=== PATIENT | male | born 1960 | race Caucasian/White ===

== ENCOUNTER 2017-12-21 13:42 | Emergency (ER) | payer MEDICAID, SELFPAY ==
[2017-12-21 13:46] VITALS: RESP 23; O2SAT 96
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
--- NOTE | 2017-12-21 14:15 | NUR.NOTE ---
Nursing Note: standing in his room, sitting at bottom of bed, requesting his walker so that he can go home. calling nurses mother royce, I want to go home. threw phone on the floor after talking to Dr Cummings. keeps saying he wants to go home, nothing is wrong with him. will not let us take vital signs, pulls equipment off.
== END 2017-12-21 14:44 | disposition home or self-care (01) ==
PROVIDERS: Emergency Provider Physician Assistant; PCP Family Medicine
DX: F10.229 Alcohol dependence with intoxication, unspecified (principal); E11.40 Type 2 diabetes mellitus with diabetic neuropathy, unspecified; Z79.4 Long term (current) use of insulin; I10 Essential (primary) hypertension
CPT/HCPCS: 99285; 99284

== ENCOUNTER 2017-12-30 13:58 | Outpatient (CLI) | payer MEDICAID, SELFPAY ==
[2017-12-30 14:48] LABS: ALT 30 U/L (12-78); AST 34 U/L (15-37); Albumin 3.7 g/dL (3.4-5.0); Alkaline Phosphatase 114 U/L (46-116); Anion Gap 8.5 mmol/L (3-11); BUN 8 mg/dL (7-18); Bilirubin, Direct 0.22 mg/dL (0.00-0.20); Bilirubin, Total 0.6 mg/dL (0.2-1.0); CO2 30.5 mmol/L (21.0-32.0); CREATININE 0.86 mg/dL (0.70-1.30); Calcium 8.9 mg/dL (8.5-10.1); Chloride 100 mmol/L (98-107); Glucose 66 mg/dL (70-100); Magnesium 1.6 mg/dL (1.8-2.4); Potassium 3.9 mmol/L (3.5-5.1); Sodium 139 mmol/L (136-145); Total Protein 7.5 g/dL (6.4-8.2)
[2017-12-30 14:50] LABS: Absolute Basophil Count 0.02 k/cumm (0.0-0.2); Absolute Eosinophil Count 0.11 k/cumm (0.0-0.7); Absolute Lymphocyte Count 1.66 k/cumm (1.2-3.4); Absolute Monocyte Count 0.56 k/cumm (0.11-0.7); Absolute Neutrophil Count 3.98 k/cumm (1.2-6.7); Basophils % 0.3; Eosinophils % 1.7; HCT 36.5 % (40.0-50.0); HGB 11.5 g/dL (13.5-17.5); Lymphocytes % 26.2; Mean Corp. HGB Concentration 31.5 g/dL (32.0-36.0); Mean Corpuscular Hemoglobin 25.8 pg (27.0-33.0); Mean Platelet Volume 11.9 fL (8.0-11.0); Monocytes % 8.8; RBC 4.45 m/cumm (4.50-6.00); RBC Distribution Width 17.4 % (11.8-14.1); White Blood Cell Count 6.33 k/cumm (4.4-10.8)
[2017-12-30 14:53] LABS: INR 1.1 (1.0-3.5); Prothrombin Time 10.8 sec (9.3-10.8)
[2017-12-30 14:59] LABS: ETHANOL BLOOD < 3.0 mg/dL (<3)
[2017-12-30 15:35] LABS: Diff Comment PLT Morph Reviewed; Hypochromasia 2+; Platelet Count 88 x1000/uL (130-400)
== END 2017-12-30 14:18 ==
PROVIDERS: PCP Family Medicine; Visit Provider Family Medicine
DX: K74.60 Unspecified cirrhosis of liver (principal); F10.20 Alcohol dependence, uncomplicated; S12.690S Other displaced fracture of seventh cervical vertebra, sequela
CPT/HCPCS: 36415; 80048; 80076; 80320; 83735; 85025; 85610

== ENCOUNTER 2018-01-19 10:37 | Emergency (ER) | payer MEDICAID, SELFPAY ==
[2018-01-19 10:46] VITALS: BP 149/88; PULSE 113; RESP 26; TEMP 37.7; O2SAT 95
--- NOTE | 2018-01-19 11:23 | W.ED.GENAD ---
Discharge Plan Discharge Details Chief Complaint: Nk/Back Pain Primary Care Provider: Sushil Figueroa ED Provider: Jailyn Pedro Home Meds and New Rx's Prescriptions: No Action oxazepam 10 MG capsule 10 mg PO BID RF: 0 aspirin [Aspir-81] 81 MG tablet,delayed release (DR/EC) 81 mg PO DAILY RF: 0 furosemide 20 MG tablet 20 mg PO BID RF: 0 spironolactone 50 MG tablet 50 mg PO BID RF: 0 epinephrine 0.3 MG/SYR auto-injector 0.3 mg IM DIRECTED PRNRF: 0 pantoprazole 40 MG tablet,delayed release (DR/EC) 40 mg PO DAILY RF: 0 mirtazapine 15 MG tablet 15 mg PO HS RF: 0 losartan 50 MG tablet 50 mg PO DAILY RF: 0 atorvastatin [Lipitor] 40 MG tablet 40 mg PO QPM RF: 0 lactulose [Constulose] 10 GM/15 ML solution 45 gm PO TID RF: 0 insulin detemir U-100 [Levemir U-100 Insulin] 100 UNIT/ML solution 22 unit SQ DAILY RF: 0 duloxetine [Cymbalta] 30 MG capsule,delayed release(DR/EC) 60 mg PO DAILY RF: 0 magnesium oxide 400 MG tablet 400 mg PO BID RF: 0 gabapentin 800 MG tablet 800 mg PO TID RF: 0 multivitamin 1 EACH capsule 1 ea PO DAILY RF: 0 insulin lispro [Humalog KwikPen Insulin] 100 UNIT/ML insulin pen 8 unit SQ AC RF: 0 thiamine mononitrate (vit B1) [Vitamin B-1 (mononitrate)] 100 MG tablet 100 mg PO DAILY RF: 0 HPI General Mode of arrival: ambulatory. Date/Time Provider Initiated Documentation: 01/19/18 10:52. Limitations to Documentation: no limitations. Information obtained by: patient. HPI Narrative: Patient is a 57-year-old male with a history of alcohol abuse, opiate abuse who presents with bilateral arm and leg pain and tingling since yesterday. States he had neck surgery at [facility] month ago Related Data Home Medications Medication Instructions Recorded Confirmed epinephrine 0.3 mg IM DIRECTED PRN 01/15/13 09/23/17 mirtazapine 15 mg PO HS 11/21/15 09/23/17 pantoprazole 40 mg PO DAILY 11/21/15 09/23/17 duloxetine [Cymbalta] 60 mg PO DAILY 04/06/16 09/23/17 losartan 50 mg PO DAILY 04/18/16 09/23/17 atorvastatin [Lipitor] 40 mg PO QPM 08/19/16 09/23/17 insulin detemir U-100 [Levemir 22 unit SQ DAILY 08/19/16 09/23/17 U-100 Insulin] lactulose [Constulose] 45 gm PO TID 08/19/16 09/23/17 gabapentin 800 mg PO TID 11/19/16 09/23/17 insulin lispro [Humalog KwikPen 8 unit SQ AC 11/19/16 09/23/17 Insulin] magnesium oxide 400 mg PO BID 11/19/16 09/23/17 multivitamin 1 ea PO DAILY 11/19/16 09/23/17 thiamine mononitrate (vit B1) 100 mg PO DAILY 11/19/16 09/23/17 [Vitamin B-1 (mononitrate)] aspirin [Aspir-81] 81 mg PO DAILY tab-cap 03/15/17 09/23/17 furosemide 20 mg PO BID tab-cap 03/15/17 09/23/17 oxazepam 10 mg PO BID 03/15/17 09/23/17 spironolactone 50 mg PO BID tab-cap 03/15/17 09/23/17 Allergies Allergy/AdvReac Type Severity Reaction Status Date / Time venom-honey bee Allergy Severe signs of Unverified 12/21/17 13:53 stroke pregabalin [From Lyrica] Allergy Mild Unverified 12/21/17 13:53 varenicline tartrate AdvReac Unknown Nausea Unverified 12/21/17 13:53 [From Chantix] General Stated Complaint: Nk/Back Pain SCOT: 3 PFSH Medical History Alcohol dependence Arthritis Bilateral leg edema Chronic pain Cirrhosis of liver Depression Diabetes mellitus, type II Diabetic peripheral neuropathy Encephalopathy, hepatic GERD (gastroesophageal reflux disease) Hepatitis C Hyperlipidemia Hypertension Knee pain, right Opioid abuse TIA (transient ischemic attack) Ulnar neuropathy Social History Smoking/Tobacco Use Status: Current every day Course Vital Signs Temperature 99.9 F H 01/19/18 10:46 Pulse 113 H 01/19/18 10:46 Respiratory Rate 26 H 01/19/18 10:46 Blood Pressure 149/88 H 01/19/18 10:46 Pulse Oximetry 95 01/19/18 10:46 Temperature 99.9 F H 01/19/18 10:46 Temperature Source Tympanic 01/19/18 10:46 Pulse 113 H 01/19/18 10:46 Respiratory Rate 26 H 01/19/18 10:46 Respiratory Effort 01/19/18 10:50 Blood Pressure 149/88 H 01/19/18 10:46 Blood Pressure Position Supine 01/19/18 10:46 Pulse Oximetry 95 01/19/18 10:46 Oxygen Delivery Method Room Air 01/19/18 10:46 Oxygen Flow Rate 0 01/19/18 10:46 Pain Level 10 01/19/18 10:46
[2018-01-19 11:40] LABS: Bilirubin Negative (Negative); Blood Negative (Negative); Clarity Clear; Glucose Negative (Negative); Ketones Negative (Negative); Leukocyte Esterase Negative (Negative); Nitrite Negative (Negative); Specific Gravity 1.015 (1.005-1.025); Urobilinogen 0.2 EU/dL (Up TO 0.2)
[2018-01-19 11:41] LABS: Abs Immature Grans 0.01 k/cumm (0.0-0.09); Absolute Basophil Count 0.02 k/cumm (0.0-0.2); Absolute Eosinophil Count 0.02 k/cumm (0.0-0.7); Absolute Lymphocyte Count 2.28 k/cumm (1.2-3.4); Absolute Monocyte Count 0.61 k/cumm (0.11-0.7); Absolute Neutrophil Count 7.38 k/cumm (1.2-6.7); Basophils % 0.2; Eosinophils % 0.2; HCT 33.8 % (40.0-50.0); HGB 10.8 g/dL (13.5-17.5); Immature Grans % 0.1; Lymphocytes % 22.1; Mean Corpuscular Hemoglobin 25.3 pg (27.0-33.0); Mean Corpuscular Volume 79.2 fL (80-95); Mean Platelet Volume 11.7 fL (8.0-11.0); Monocytes % 5.9; Neutrophils % 71.5; RBC 4.27 m/cumm (4.50-6.00); RBC Distribution Width 17.1 % (11.8-14.1); White Blood Cell Count 10.32 k/cumm (4.4-10.8)
[2018-01-19 11:49] LABS: Anion Gap 12.5 mmol/L (3-11); BUN 10 mg/dL (7-18); CO2 25.5 mmol/L (21.0-32.0); CREATININE 0.58 mg/dL (0.70-1.30); Calcium 9.7 mg/dL (8.5-10.1); Chloride 98 mmol/L (98-107); Glucose 104 mg/dL (70-100); Platelet Count 254 x1000/uL (130-400); Potassium 4.1 mmol/L (3.5-5.1); Sodium 136 mmol/L (136-145)
[2018-01-19 11:51] LABS: ETHANOL BLOOD 60.1 mg/dL (<3)
--- NOTE | 2018-01-19 12:17 | ED.GENADUL_ITS ---
Discharge Plan Discharge Details Chief Complaint: Nk/Back Pain Primary Care Provider: Sushil Figueroa ED Provider: Jailyn Pedro Home Meds and New Rx's Prescriptions: No Action oxazepam 10 MG capsule 10 mg PO BID RF: 0 aspirin [Aspir-81] 81 MG tablet,delayed release (DR/EC) 81 mg PO DAILY RF: 0 furosemide 20 MG tablet 20 mg PO BID RF: 0 spironolactone 50 MG tablet 50 mg PO BID RF: 0 epinephrine 0.3 MG/SYR auto-injector 0.3 mg IM DIRECTED PRNRF: 0 pantoprazole 40 MG tablet,delayed release (DR/EC) 40 mg PO DAILY RF: 0 mirtazapine 15 MG tablet 15 mg PO HS RF: 0 losartan 50 MG tablet 50 mg PO DAILY RF: 0 atorvastatin [Lipitor] 40 MG tablet 40 mg PO QPM RF: 0 lactulose [Constulose] 10 GM/15 ML solution 45 gm PO TID RF: 0 insulin detemir U-100 [Levemir U-100 Insulin] 100 UNIT/ML solution 22 unit SQ DAILY RF: 0 duloxetine [Cymbalta] 30 MG capsule,delayed release(DR/EC) 60 mg PO DAILY RF: 0 magnesium oxide 400 MG tablet 400 mg PO BID RF: 0 gabapentin 800 MG tablet 800 mg PO TID RF: 0 multivitamin 1 EACH capsule 1 ea PO DAILY RF: 0 insulin lispro [Humalog KwikPen Insulin] 100 UNIT/ML insulin pen 8 unit SQ AC RF: 0 thiamine mononitrate (vit B1) [Vitamin B-1 (mononitrate)] 100 MG tablet 100 mg PO DAILY RF: 0 Discharge Data Discharge Date/Time-TO BE ENTERED AT DEPARTURE: 01/19/18 12:00 Medical Decision Making 57-year-old male who is 19 days status post cervical fusion at and with a history of alcohol and narcotic abuse, diabetes, hypertension who presents for bilateral arm and leg pain and paresthesias since yesterday. Patient states he is mainly complaining of pain and from immediate arrival to ED, is requesting narcotic pain medication. Patient left the room multiple times walking with his walker asking where is the doctor? she can't be taking care of any critical patients I need pain medicine. States he was given tramadol after his surgery but ran out. BP hypertensive, heart rate tachycardic on arrival. Upon my examination, heart rate improved, low 100s. Normal lung sounds. Abdomen soft and nontender. Patient is verbally aggressive at times and irritable with staff but appears nontoxic. An EKG was done which revealed a rate of 113, sinus tachycardia, no acute ST elevation or depression, QTc 455, QRS 88. No focal deficits on my exam. He has good strength, no motor or sensory deficits, normal reflexes. He has been noted to ambulate around the room easily with his walker. [facility] records note that patient had a C3-T2 posterior cervical fusion on . He had been discharged but left prior to voiding which was AGAINST MEDICAL ADVICE. Patient admitted to drinking 3 alcoholic drinks last night to help with the pain. I discussed with patient considering his history of alcohol and narcotic abuse, I am hesitant to give narcotic pain medications if I do not find an acute cause. I will check screening labs and urinalysis as well as an alcohol level. I discussed that if he had any alcohol in the system, I will be holding on any narcotic pain medication. I also offered patient a dose of tramadol if his alcohol is negative but he refuses this. I offered to call [facility] to discuss patient's symptoms but he is also refusing and states he wants to leave. Patient left before lab work complete and left before given discharge instructions. Patient was instructed to call orthopedics at [facility] to see if he can be seen before his 3-week appointment. He was instructed to return here with any concerns. As patient was leaving, his CBC and BMP returned and were unremarkable. After patient left, his urinalysis is negative and alcohol is 60. HPI General Mode of arrival: ambulatory . Date/Time Provider Initiated Documentation: 01/19/18 10:52 . Limitations to Documentation: no limitations . Information obtained by: patient . HPI Narrative: Patient is a 57-year-old male with a history of alcohol abuse, opioid abuse, pancreatitis, diabetes who presents for bilateral arm and leg pain and tingling since yesterday. States he had neck surgery at [facility] 1 month ago. States he has not discussed his symptoms with them. States he was given tramadol after his surgery but has since finished it. States his next appointment is 3 weeks from now. Patient states his pain extends from both elbows down to his hands and both knees down to his feet. Patient states he uses a walker for ambulation which is chronic. Patient arrived here by RCT. Patient denies fever, chills, chest pain, shortness of breath, abdominal pain, saddle anesthesia, leg weakness, urinary or fecal incontinence. Past medical history: Hypertension, TIA, GERD, hyperlipidemia, depression, diabetes, alcohol abuse, pancreatitis Surgical history: Knee surgery, neck surgery Social history: Smokes tobacco, alcohol use, history of heroin and cocaine use Medications: See list Allergies: Jacoby Little PCP: Dr. Figueroa Related Data Home Medications Medication Instructions Recorded Confirmed epinephrine 0.3 mg IM DIRECTED PRN 01/15/13 09/23/17 mirtazapine 15 mg PO HS 11/21/15 09/23/17 pantoprazole 40 mg PO DAILY 11/21/15 09/23/17 duloxetine [Cymbalta] 60 mg PO DAILY 04/06/16 09/23/17 losartan 50 mg PO DAILY 04/18/16 09/23/17 atorvastatin [Lipitor] 40 mg PO QPM 08/19/16 09/23/17 insulin detemir U-100 [Levemir 22 unit SQ DAILY 08/19/16 09/23/17 U-100 Insulin] lactulose [Constulose] 45 gm PO TID 08/19/16 09/23/17 gabapentin 800 mg PO TID 11/19/16 09/23/17 insulin lispro [Humalog KwikPen 8 unit SQ AC 11/19/16 09/23/17 Insulin] magnesium oxide 400 mg PO BID 11/19/16 09/23/17 multivitamin 1 ea PO DAILY 11/19/16 09/23/17 thiamine mononitrate (vit B1) 100 mg PO DAILY 11/19/16 09/23/17 [Vitamin B-1 (mononitrate)] aspirin [Aspir-81] 81 mg PO DAILY tab-cap 03/15/17 09/23/17 furosemide 20 mg PO BID tab-cap 03/15/17 09/23/17 oxazepam 10 mg PO BID 03/15/17 09/23/17 spironolactone 50 mg PO BID tab-cap 03/15/17 09/23/17 Allergies Allergy/AdvReac Type Severity Reaction Status Date / Time venom-honey bee Allergy Severe signs of Unverified 12/21/17 13:53 stroke pregabalin [From Lyrica] Allergy Mild Unverified 12/21/17 13:53 varenicline tartrate AdvReac Unknown Nausea Unverified 12/21/17 13:53 [From Chantix] General Stated Complaint: Nk/Back Pain SCOT: 3 Review of Systems Review of Systems All systems reviewed & are unremarkable except as noted in HPI and below PFSH Medical History Alcohol dependence Arthritis Bilateral leg edema Chronic pain Cirrhosis of liver Depression Diabetes mellitus, type II Diabetic peripheral neuropathy Encephalopathy, hepatic GERD (gastroesophageal reflux disease) Hepatitis C Hyperlipidemia Hypertension Knee pain, right Opioid abuse TIA (transient ischemic attack) Ulnar neuropathy Social History Smoking/Tobacco Use Status: Current every day Exam Const General: cooperative and healthy appearing Orientation: alert and awake HENMT Head: normal to inspection Ears: hearing grossly normal bilaterally and external ears normal General nose exam: external nose normal Face and sinus: normal facial exam Eyes General: appearance normal, both eyes and all related structures Eyelids: eyelids normal Neck Neck: normal visual inspection Lymphatic: no lymphadenopathy noted Chest Chest: normal inspection of the chest Resp Effort & Inspection: normal respiratory effort and able to speak in complete sentences Auscultation: clear to auscultation bilaterally Cardio Rate: regular rate Rhythm: regular rhythm GI Inspection: normal to inspection Palpation: soft, not firm, no guarding, no hepatosplenomegaly, no masses and nontender Auscultation: normal bowel sounds Back/Spine/Pelvis Cervical Spine: other (Well-healing scar with healthy granulation tissue noted to lower cervical and upper thoracic spine. No induration, fluctuance, abscess. ) Thoracic/Lumbar Spine: No thoracic spinal tenderness and No lumbar spinal tenderness Pelvis: no pain with anterior-posterior compression Skin General skin exam: no rashes or lesions noted Neuro General: alert and awake Cognition: normal cognition Speech: speech normal Gait: gait assisted (Able to ambulate around room using walker. Somewhat hunched over when pushing walker.) Method: walker Motor: muscle tone normal throughout and strength 5/5 throughout (Radial/ulnar/ median/biceps/triceps/hip flexion/extension/knee flexion/extension/plantar/ dorsiflexion) Sensory Exam: no sensory deficits noted DTR's: Rt Triceps: 2+, Lt Triceps: 2+, Rt Biceps: 2+, Lt Biceps: 2+, Rt Brachioradialis: 2+, Lt Brachioradialis: 2+, Rt Patellar: 2+, Lt Patellar: 2+, Rt Ankle: 2+ and Lt Ankle: 2+ Plantar Reflexes: Equivocal: bilateral Extrem General: normal to inspection, full ROM and normal capillary refill Other: Bilateral radial/ulnar/DP/PT pulses intact. Psych Appearance: grossly normal Mental Status: mental status grossly normal Speech and Movement: speech and movement normal Affect: normal affect Thought Process: normal Course Vital Signs Temperature 99.9 F H 01/19/18 10:46 Pulse 113 H 01/19/18 10:46 Respiratory Rate 26 H 01/19/18 10:46 Blood Pressure 149/88 H 01/19/18 10:46 Pulse Oximetry 95 01/19/18 10:46 Temperature 99.9 F H 01/19/18 10:46 Temperature Source Tympanic 01/19/18 10:46 Pulse 113 H 01/19/18 10:46 Respiratory Rate 26 H 01/19/18 10:46 Respiratory Effort 01/19/18 10:50 Blood Pressure 149/88 H 01/19/18 10:46 Blood Pressure Position Supine 01/19/18 10:46 Pulse Oximetry 95 01/19/18 10:46 Oxygen Delivery Method Room Air 01/19/18 10:46 Oxygen Flow Rate 0 01/19/18 10:46 Pain Level 10 01/19/18 10:46 Lab/Test Results Lab/Test Results: Laboratory Tests Range/Units 01/19/18 01/19/18 01/19/18 11:00 11:00 11:00 WBC (4.4-10.8) k/cumm 10.32 RBC (4.50-6.00) m/cumm 4.27 L Hgb (13.5-17.5) g/dL 10.8 L Hct (40.0-50.0) % 33.8 L MCV (80-95) fL 79.2 L MCH (27.0-33.0) pg 25.3 L MCHC (32.0-36.0) g/dL 32.0 RDW (11.8-14.1) % 17.1 H Plt Count (130-400) x1000/uL 254 D MPV (8.0-11.0) fL 11.7 H Immature Gran % 0.1 Neutrophils % 71.5 Lymphocytes % 22.1 Monocytes % 5.9 Eosinophils % 0.2 Basophils % 0.2 Absolute Neutrophils (1.2-6.7) k/cumm 7.38 H Absolute Lymphocytes (1.2-3.4) k/cumm 2.28 Absolute Monocytes (0.11-0.7) k/cumm 0.61 Absolute Eosinophils (0.0-0.7) k/cumm 0.02 Absolute Basophils (0.0-0.2) k/cumm 0.02 Sodium (136-145) mmol/L 136 Potassium (3.5-5.1) mmol/L 4.1 Chloride (98-107) mmol/L 98 Carbon Dioxide (21.0-32.0) mmol/L 25.5 Anion Gap (3-11) mmol/L 12.5 H BUN (7-18) mg/dL 10 Creatinine (0.70-1.30) mg/dL 0.58 L Estimated GFR/1.73 m2 (mL/min/1.73m2) >= 60.00 Glucose (70-100) mg/dL 104 H Calcium (8.5-10.1) mg/dL 9.7 Urine Color (Yellow) Urine Clarity Urine pH (5-8) Ur Specific [place] (1.005-1.025) Urine Protein (Negative) mg/dL Urine Ketones (Negative) mg/dL Urine Blood (Negative) Urine Nitrite (Negative) Urine Bilirubin (Negative) Urine Urobilinogen (Up TO 0.2) EU/dL Ur Leukocyte Esterase (Negative) Urine Glucose (Negative) mg/dL Ethyl Alcohol (<3) mg/dL 60.1 Range/Units 01/19/18 11:30 WBC (4.4-10.8) k/cumm RBC (4.50-6.00) m/cumm Hgb (13.5-17.5) g/dL Hct (40.0-50.0) % MCV (80-95) fL MCH (27.0-33.0) pg MCHC (32.0-36.0) g/dL RDW (11.8-14.1) % Plt Count (130-400) x1000/uL MPV (8.0-11.0) fL Immature Gran % Neutrophils % Lymphocytes % Monocytes % Eosinophils % Basophils % Absolute Neutrophils (1.2-6.7) k/cumm Absolute Lymphocytes (1.2-3.4) k/cumm Absolute Monocytes (0.11-0.7) k/cumm Absolute Eosinophils (0.0-0.7) k/cumm Absolute Basophils (0.0-0.2) k/cumm Sodium (136-145) mmol/L Potassium (3.5-5.1) mmol/L Chloride (98-107) mmol/L Carbon Dioxide (21.0-32.0) mmol/L Anion Gap (3-11) mmol/L BUN (7-18) mg/dL Creatinine (0.70-1.30) mg/dL Estimated GFR/1.73 m2 (mL/min/1.73m2) Glucose (70-100) mg/dL Calcium (8.5-10.1) mg/dL Urine Color (Yellow) Yellow Urine Clarity Clear Urine pH (5-8) 6.0 Ur Specific [place] (1.005-1.025) 1.015 Urine Protein (Negative) mg/dL Negative Urine Ketones (Negative) mg/dL Negative Urine Blood (Negative) Negative Urine Nitrite (Negative) Negative Urine Bilirubin (Negative) Negative Urine Urobilinogen (Up TO 0.2) EU/dL 0.2 Ur Leukocyte Esterase (Negative) Negative Urine Glucose (Negative) mg/dL Negative Ethyl Alcohol (<3) mg/dL
== END 2018-01-19 12:00 ==
LOC: ER 11:32
PROVIDERS: Emergency Provider Physician Assistant; PCP Family Medicine
DX: M79.601 Pain in right arm (principal); M79.602 Pain in left arm; M79.604 Pain in right leg; M79.605 Pain in left leg; R00.0 Tachycardia, unspecified; Y90.3 Blood alcohol level of 60-79 mg/100 ml; Z53.29 Procedure and treatment not carried out because of patient's decision for other reasons; E11.9 Type 2 diabetes mellitus without complications; Z79.4 Long term (current) use of insulin; I10 Essential (primary) hypertension
CPT/HCPCS: 36415; 80048; 93005; 99285; 80320; 81003; 85025; 93010; 99284

== ENCOUNTER 2018-03-09 00:45 | Outpatient (CLI) | payer MEDICAID, SELFPAY ==
--- NOTE | 2018-03-09 14:40 | DI.MRI_ITS ---
SYMPTOMS/DIAGNOSIS: ALCOHOLISM, CIRRHOSIS, PAIN, MULTI-SEVERE DEGENERATIVE CHANGES, M47.896 LUMBOSACRAL SPINE MRI: MRI examination of the lumbosacral spine was performed according to the usual protocol. There are peridiscal vertebral signal changes at L 2 - 3, L 3 - 4 and L 4 - 5 consistent with disc degeneration. No other significant bony signal abnormality seen. There is loss of height of these intervertebral discs and loss of signal in these intervertebral discs noted as well. The conus medullaris appears intact. No significant findings at T 12 - L 1 and L 1 - 2. At L 2 - 3 there is moderate disc bulge without evidence of disc herniation. The neural foramina appear fairly well maintained. There are mild hypertrophic facet degenerative changes. At L 3 - 4 there is moderate disc bulge without evidence of disc herniation. Deformity of the lateral wall of the spinal canal on the left is noted secondary to facet hypertrophy. Left sided neural foraminal narrowing also noted at this level. At L 4 - 5 there is mild disc bulge. There are prominent changes of facet hypertrophy. There is narrowing of the left neural foramen at this level. The right neural foramen appears intact. At L 5 - S 1 there is mild disc bulge. No disc herniation. No neural foraminal narrowing. CONCLUSION: Multi-level degenerative changes as described above. Neural foraminal narrowing at L 3 - 4 and L 4 - 5 on the left. There is left lateral wall deformity of the spinal canal at L 3 - 4 which causes mild central canal spinal stenosis and there is left neural foraminal narrowing associated with this findings. Note is made of marked distention of the urinary bladder, clinical correlation requested regarding an indication of bladder outlet obstruction.
== END 2018-03-09 01:05 ==
PROVIDERS: PCP Family Medicine; Visit Provider Family Medicine
DX: K70.30 Alcoholic cirrhosis of liver without ascites (principal); M51.37 Other intervertebral disc degeneration, lumbosacral region; N32.89 Other specified disorders of bladder; M47.896 Other spondylosis, lumbar region
CPT/HCPCS: 72148

== ENCOUNTER 2018-06-22 15:45 | Emergency (ER) | payer MEDICAID, SELFPAY ==
[2018-06-22 15:44] VITALS: BP 142/88; PULSE 85; RESP 18; TEMP 36.5; O2SAT 97
--- NOTE | 2018-06-22 15:56 | W.ED.GENAD ---
Discharge Plan Disposition Patient Disposition: HOME Condition: Stable Discharge Details Chief Complaint: GenMedical Clinical Impression: Acute alcohol intoxication, Sacral decubitus ulcer, Chronic pain Reason For Visit: PENNY Primary Care Provider: Sushil Figueroa ED Provider: Annie Montoya Home Meds and New Rx's Prescriptions: Continued trazodone 150 mg tablet 150 mg PO DAILY RF: 0 citalopram 40 mg tablet 40 mg PO DAILY RF: 0 losartan 25 mg tablet 25 mg PO DAILY RF: 0 oxazepam 10 MG capsule 10 mg PO BID RF: 0 aspirin [Aspir-81] 81 MG tablet,delayed release (DR/EC) 81 mg PO DAILY RF: 0 furosemide 20 MG tablet 20 mg PO BID RF: 0 spironolactone 50 MG tablet 50 mg PO BID RF: 0 epinephrine 0.3 MG/SYR auto-injector 0.3 mg IM DIRECTED PRNRF: 0 mirtazapine 15 MG tablet 7.5 mg PO HS RF: 0 atorvastatin [Lipitor] 40 MG tablet 40 mg PO QPM RF: 0 lactulose [Constulose] 10 GM/15 ML solution 45 gm PO TID RF: 0 Levemir U-100 Insulin 100 UNIT/ML solution 22 unit SQ DAILY RF: 0 duloxetine [Cymbalta] 30 MG capsule,delayed release(DR/EC) 60 mg PO DAILY RF: 0 magnesium oxide 400 MG tablet 400 mg PO BID RF: 0 gabapentin 800 MG tablet 800 mg PO TID RF: 0 multivitamin 1 EACH capsule 1 ea PO DAILY RF: 0 Humalog KwikPen Insulin 100 UNIT/ML insulin pen 8 unit SQ AC RF: 0 thiamine mononitrate (vit B1) [Vitamin B-1 (mononitrate)] 100 MG tablet 100 mg PO DAILY RF: 0 Discharge Instructions Instructions: Chronic Pain (ED), Abuse of Alcohol (ED) Additional Instructions: Please return to the emergency department if you develop any new or worsening symptoms or if you become otherwise concerned. It is extremely important that you make an appointment to be seen as soon as possible by your primary care doctor in follow-up for this visit. Referrals: Sushil Figueroa [Primary Care Provider] - Discharge Data Discharge Date/Time-TO BE ENTERED AT DEPARTURE: 06/22/18 20:20 Medical Decision Making Jackson Austin is a 58-year-old man with history of chronic alcoholism, depression, hepatitis C, TIA, hyperlipidemia, hypertension, diabetes who presented to the emergency department with generalized body pain chronically for months and generalized numbness chronically for months. On exam patient is nontoxic appearing, smells somewhat of alcohol, has benign cardiopulmonary exam and stage I/II sacral decubitus ulcer without signs of infection. Patient is angry, stating that he wants to leave, demanding opiate pain medications. Given chronicity of symptoms, doubt acute emergent life threatening process at this time. Plan for ethanol level, fingerstick glucose. After blood drawn fingerstick, patient reporting that he wants to be admitted. He reports now to me that he doesn't like care of myself at home, that he wants to be monitored and admitted. Patient reports that he has been receiving Meals on Wheels, but he has lost his appetite in the past 2 days and has not had anything to eat for 48 hours despite having access to food. He reports that he has been sitting continuously because he does not feel like getting up and needs to be taken care of. He states that he is able to walk but just does not feel like it. He again denies any focal pain or injury. He reports that he sometimes has not been walking to the bathroom and had been urinating into a bottle. Patient is uncooperative during discussion, interrupting discussion several times to state I'm just going to leave if you are not going to do anything for me. Patient continues to deny any focal complaints. Concern for failure to thrive, occult ACS, metabolic/lyte derangement, infection, other. Plan for EKG, chest x-ray, screening labs, IV. Will monitor and reassess. EKG interpreted by me: Shows sinus tach at 104, nl axis, TW flattening leads 1 and aVL present on prior 02/03. Labs nondiagnostic. Patient evaluated by [facility] for possible increased assistance, resources at home. There is no indication for admission at this time, and no clear etiology of patient's complaints. Pt seen by [facility], who requests Pt be discharged to [facility] [facility] for [facility]riety given his blood alcohol level with further [facility] evaluation in the morning. Patient verbalized understanding of the plan and is amenable. He wishes to go to [facility] right away, and declined repeat troponin or chest x-ray. Patient discharged to [facility]. Prior to discharge I had a lengthy discussion with the patient to return to emergency department precautions, home care, importance of outpatient follow-up with his PCP. Patient verbalized understanding the plan and was amenable. Patient smells of alcohol and still has alcohol in his system given his blood alcohol level, however his thought process is lucid and his speech is clear. All questions were answered. Medical Records Medical records reviewed: Yes I reviewed the patient's medical records. Lab Data Lab results reviewed: Yes I reviewed the patient's lab results. Laboratory Tests Range/Units 06/22/18 06/22/18 06/22/18 17:10 17:10 17:10 WBC (4.4-10.8) k/cumm 7.46 RBC (4.50-6.00) m/cumm 5.49 Hgb (13.5-17.5) g/dL 13.1 L Hct (40.0-50.0) % 39.9 L MCV (80-95) fL 72.7 L MCH (27.0-33.0) pg 23.9 L MCHC (32.0-36.0) g/dL 32.8 RDW (11.8-14.1) % 22.4 H Plt Count (130-400) x1000/uL 176 MPV (8.0-11.0) fL 10.6 Immature Gran % 0.3 Neutrophils % 58.0 Lymphocytes % 34.9 Monocytes % 5.6 Eosinophils % 0.9 Basophils % 0.3 Absolute Neutrophils (1.2-6.7) k/cumm 4.33 Absolute Lymphocytes (1.2-3.4) k/cumm 2.60 Absolute Monocytes (0.11-0.7) k/cumm 0.42 Absolute Eosinophils (0.0-0.7) k/cumm 0.07 Absolute Basophils (0.0-0.2) k/cumm 0.02 Differential Comment Rbc morph reviewed RBC Morphology See below Anisocytosis 3+ Microcytosis 3+ Sodium (136-145) mmol/L 139 Potassium (3.5-5.1) mmol/L 3.4 L Chloride (98-107) mmol/L 101 Carbon Dioxide (21.0-32.0) mmol/L 25.0 Anion Gap (3-11) mmol/L 13.0 H BUN (7-18) mg/dL 8 Creatinine (0.70-1.30) mg/dL 0.79 Estimated GFR/1.73 m2 (mL/min/1.73m2) >= 60.00 Glucose (70-100) mg/dL 91 Calcium (8.5-10.1) mg/dL 9.0 Total Bilirubin (0.2-1.0) mg/dL 0.5 AST (15-37) U/L 80 H ALT (12-78) U/L 60 Alkaline Phosphatase (46-116) U/L 120 H Troponin I (0.00-0.06) ng/mL < 0.02 Total Protein (6.4-8.2) g/dL 7.9 Albumin (3.4-5.0) g/dL 4.1 Urine Color (Yellow) Urine Clarity Urine pH (5-8) Ur Specific Sawyer (1.005-1.025) Urine Protein (Negative) mg/dL Urine Ketones (Negative) mg/dL Urine Blood (Negative) Urine Nitrite (Negative) Urine Bilirubin (Negative) Urine Urobilinogen (Up TO 0.2) EU/dL Ur Leukocyte Esterase (Negative) Urine Glucose (Negative) mg/dL Ethyl Alcohol (<3) mg/dL 160.4 Path Cons Comment See comment Range/Units 06/22/18 06/22/18 17:23 21:30 WBC (4.4-10.8) k/cumm RBC (4.50-6.00) m/cumm Hgb (13.5-17.5) g/dL Hct (40.0-50.0) % MCV (80-95) fL MCH (27.0-33.0) pg MCHC (32.0-36.0) g/dL RDW (11.8-14.1) % Plt Count (130-400) x1000/uL MPV (8.0-11.0) fL Immature Gran % Neutrophils % Lymphocytes % Monocytes % Eosinophils % Basophils % Absolute Neutrophils (1.2-6.7) k/cumm Absolute Lymphocytes (1.2-3.4) k/cumm Absolute Monocytes (0.11-0.7) k/cumm Absolute Eosinophils (0.0-0.7) k/cumm Absolute Basophils (0.0-0.2) k/cumm Differential Comment RBC Morphology Anisocytosis Microcytosis Sodium (136-145) mmol/L Potassium (3.5-5.1) mmol/L Chloride (98-107) mmol/L Carbon Dioxide (21.0-32.0) mmol/L Anion Gap (3-11) mmol/L BUN (7-18) mg/dL Creatinine (0.70-1.30) mg/dL Estimated GFR/1.73 m2 (mL/min/1.73m2) Glucose (70-100) mg/dL Calcium (8.5-10.1) mg/dL Total Bilirubin (0.2-1.0) mg/dL AST (15-37) U/L ALT (12-78) U/L Alkaline Phosphatase (46-116) U/L Troponin I (0.00-0.06) ng/mL Cancelled Total Protein (6.4-8.2) g/dL Albumin (3.4-5.0) g/dL Urine Color (Yellow) Yellow Urine Clarity Clear Urine pH (5-8) 7.0 Ur Specific Sawyer (1.005-1.025) 1.010 Urine Protein (Negative) mg/dL Negative Urine Ketones (Negative) mg/dL Negative Urine Blood (Negative) Negative Urine Nitrite (Negative) Negative Urine Bilirubin (Negative) Negative Urine Urobilinogen (Up TO 0.2) EU/dL 0.2 Ur Leukocyte Esterase (Negative) Negative Urine Glucose (Negative) mg/dL Negative Ethyl Alcohol (<3) mg/dL Path Cons Comment HPI General Mode of arrival: EMS. Date/Time Provider Initiated Documentation: 06/22/18 15:56. Limitations to Documentation: no limitations. Information obtained by: patient. HPI Narrative: Jackson Austin is a 58-year-old man with history of hypertension, hyperlipidemia, chronic alcoholism, diabetes presenting to the emergency department with all over body pain in all over body numbness. Patient reports that he had neck surgery December 2017, and since that time his whole body below his neck has been numb. He also reports that he has all over body pain chronically for the past few months. He reports that he takes no pain medication at home for this. He denies any new numbness or tingling, denies focal weakness. He denies any focality of pain or any change in his chronic all over body pain. Patient reports that he had one beer today prior to arrival. He reports that he usually does not drink any alcohol. Denies fevers, shortness of breath, vomiting, diarrhea. Related Data Home Medications Medication Instructions Recorded Confirmed epinephrine 0.3 mg IM DIRECTED PRN 01/15/13 06/23/18 mirtazapine 7.5 mg PO HS 11/21/15 06/16/18 duloxetine [Cymbalta] 60 mg PO DAILY 04/06/16 06/23/18 Levemir U-100 Insulin 22 unit SQ DAILY 08/19/16 06/23/18 atorvastatin [Lipitor] 40 mg PO QPM 08/19/16 06/23/18 lactulose [Constulose] 45 gm PO TID 08/19/16 06/23/18 Humalog KwikPen Insulin 8 unit SQ AC 11/19/16 06/23/18 gabapentin 800 mg PO TID 11/19/16 06/23/18 magnesium oxide 400 mg PO BID 11/19/16 06/23/18 multivitamin 1 ea PO DAILY 11/19/16 06/23/18 thiamine mononitrate (vit B1) 100 mg PO DAILY 11/19/16 06/23/18 [Vitamin B-1 (mononitrate)] aspirin [Aspir-81] 81 mg PO DAILY tab-cap 03/15/17 06/23/18 furosemide 20 mg PO BID tab-cap 03/15/17 06/23/18 oxazepam 10 mg PO BID 03/15/17 06/23/18 spironolactone 50 mg PO BID tab-cap 03/15/17 06/23/18 citalopram 40 mg tablet 40 mg PO DAILY 06/08/18 06/23/18 losartan 25 mg tablet 25 mg PO DAILY 06/08/18 06/23/18 trazodone 150 mg tablet 150 mg PO DAILY 06/08/18 06/23/18 Allergies Allergy/AdvReac Type Severity Reaction Status Date / Time venom-honey bee Allergy Severe signs of Unverified 06/23/18 03:10 stroke pregabalin [From Lyrica] Allergy Mild Unverified 06/23/18 03:10 varenicline tartrate AdvReac Unknown Nausea Unverified 06/23/18 03:10 [From Chantix] General Stated Complaint: GenMedical SCOT: 3 Review of Systems Review of Systems Constitutional: denies fevers Eyes: denies eye pain ENT: denies facial pain, dental pain, sore throat Cardiovascular: denies chest pain, edema Respiratory: denies SOB, cough GI: denies abdominal pain, vomiting, diarrhea : denies flank pain MSK: Reports generalized back pain, arthralgias, myalgias chronic for the past several months Skin: denies rash Neuro: denies headaches, weakness, reports all over body numbness for the past several months [facility] Medical History Alcohol dependence Arthritis Bilateral leg edema Chronic pain Cirrhosis of liver Depression Diabetes mellitus, type II Diabetic peripheral neuropathy Encephalopathy, hepatic GERD (gastroesophageal reflux disease) Hepatitis C Hyperlipidemia Hypertension Knee pain, right Opioid abuse TIA (transient ischemic attack) Ulnar neuropathy Social History Smoking/Tobacco Use Status: Current every day Tobacco Type: e-cigarettes Alcohol Intake: current Alcohol Intake frequency: a few times a week Drug use: Current Sobriety Substance use type: marijuana Housing: apartment Number of Children: 3 What type of physical activity do you participate in: walking Do you feel safe in your relationship?: Yes Exam Narrative Exam Narrative: Constitutional: well and [id number], conversing normally, angry, somewhat abusive to staff, stating frequently that no one is doing anything for me and I am leaving HENT: head atraumatic/normocephalic/normal inspection, mucous membranes moist Eyes: conjunctiva normal, sclera normal, pupils 3mm b/l Neck: no stridor, normal ROM, trachea midline Chest: normal inspection Resp: normal work of breathing, LCTAB Cardio: normal rate, normal rhythm, no murmur appreciated GI: abdomen soft, non-tender, non-distended Back: normal inspection, no rash Skin: warm, dry, normal color, 1 cm stage II sacral decubitus with 3 cm surrounding stage I ulcer, no drainage Neuro: alert, not altered, grossly non-focal, normal tone Ext: no edema Psych: normal affect Course Vital Signs Temperature 36.5 C 06/22/18 15:44 Pulse 85 06/22/18 15:44 Respiratory Rate 18 06/22/18 15:44 Blood Pressure 142/88 H 06/22/18 15:44 Pulse Oximetry 97 06/22/18 15:44 Temperature 36.5 C 06/22/18 15:44 Temperature Source Skin 06/22/18 15:44 Pulse 85 06/22/18 15:44 Respiratory Rate 18 06/22/18 15:44 Blood Pressure 142/88 H 06/22/18 15:44 Pulse Oximetry 97 06/22/18 15:44 Oxygen Delivery Method Room Air 06/22/18 15:44 Oxygen Flow Rate 0 06/22/18 15:44 Pain Level 8 06/22/18 15:44 Comment 06/22/18 15:44
[2018-06-22 16:01] VITALS: RESP 14
[2018-06-22 17:36] LABS: Abs Immature Grans 0.02 k/cumm (0.0-0.09); Absolute Basophil Count 0.02 k/cumm (0.0-0.2); Absolute Eosinophil Count 0.07 k/cumm (0.0-0.7); Absolute Monocyte Count 0.42 k/cumm (0.11-0.7); Absolute Neutrophil Count 4.33 k/cumm (1.2-6.7); Basophils % 0.3; Eosinophils % 0.9; HCT 39.9 % (40.0-50.0); HGB 13.1 g/dL (13.5-17.5); Immature Grans % 0.3; Lymphocytes % 34.9; Mean Corp. HGB Concentration 32.8 g/dL (32.0-36.0); Mean Corpuscular Hemoglobin 23.9 pg (27.0-33.0); Mean Corpuscular Volume 72.7 fL (80-95); Mean Platelet Volume 10.6 fL (8.0-11.0); Monocytes % 5.6; RBC 5.49 m/cumm (4.50-6.00); RBC Distribution Width 22.4 % (11.8-14.1); White Blood Cell Count 7.46 k/cumm (4.4-10.8)
[2018-06-22 17:40] LABS: ETHANOL BLOOD 160.4 mg/dL (<3)
[2018-06-22 17:41] LABS: Platelet Count 176 x1000/uL (130-400)
[2018-06-22 17:47] LABS: Bilirubin Negative (Negative); Blood Negative (Negative); Clarity Clear; Glucose Negative (Negative); Ketones Negative (Negative); Leukocyte Esterase Negative (Negative); Nitrite Negative (Negative); Urobilinogen 0.2 EU/dL (Up TO 0.2)
[2018-06-22 17:53] LABS: Anisocytosis 3+; Microcytosis 3+
[2018-06-22 17:54] LABS: Diff Comment RBC Morph Reviewed
[2018-06-22 18:03] LABS: ALT 60 U/L (12-78); AST 80 U/L (15-37); Albumin 4.1 g/dL (3.4-5.0); Alkaline Phosphatase 120 U/L (46-116); BUN 8 mg/dL (7-18); Bilirubin, Total 0.5 mg/dL (0.2-1.0); CREATININE 0.79 mg/dL (0.70-1.30); Chloride 101 mmol/L (98-107); Glucose 91 mg/dL (70-100); Potassium 3.4 mmol/L (3.5-5.1); Sodium 139 mmol/L (136-145); Total Protein 7.9 g/dL (6.4-8.2); Troponin I < 0.02 ng/mL (0.00-0.06)
[2018-06-22 19:05] VITALS: BP 106/74; PULSE 112; RESP 16; TEMP 36.5; O2SAT 92
== END 2018-06-22 20:20 | disposition home or self-care (01) ==
PROVIDERS: Emergency Provider Student in an Organized Health Care Education/Training Program; PCP Family Medicine
DX: F10.229 Alcohol dependence with intoxication, unspecified (principal); Y90.6 Blood alcohol level of 120-199 mg/100 ml; L89.151 Pressure ulcer of sacral region, stage 1; G89.29 Other chronic pain; I10 Essential (primary) hypertension; E11.9 Type 2 diabetes mellitus without complications
CPT/HCPCS: 36415; 36416; 80053; 82962; 93005; 99285; 80320; 81003; 84484; 85025; 93010; 99284

== ENCOUNTER 2018-06-23 03:02 | Emergency (ER) | payer MEDICAID, SELFPAY ==
[2018-06-23] VITALS (12 sets, daily range): BP systolic 136–146; BP diastolic 88–93; PULSE 94–102; RESP 19–30; TEMP 37.1–37.2; O2SAT 93–96
--- NOTE | 2018-06-23 03:11 | ED.GENADUL_ITS ---
Discharge Plan Disposition Patient Disposition: AGAINST MEDICAL ADVICE Condition: Stable Discharge Details Chief Complaint: Chest Pain Clinical Impression: Chest pain Reason For Visit: JUAN ANTONIO Primary Care Provider: Sushil Figueroa ED Provider: Bill Joseph Home Meds and New Rx's Prescriptions: No Action trazodone 150 mg tablet 150 mg PO DAILY RF: 0 citalopram 40 mg tablet 40 mg PO DAILY RF: 0 losartan 25 mg tablet 25 mg PO DAILY RF: 0 oxazepam 10 MG capsule 10 mg PO BID RF: 0 aspirin [Aspir-81] 81 MG tablet,delayed release (DR/EC) 81 mg PO DAILY RF: 0 furosemide 20 MG tablet 20 mg PO BID RF: 0 spironolactone 50 MG tablet 50 mg PO BID RF: 0 epinephrine 0.3 MG/SYR auto-injector 0.3 mg IM DIRECTED PRNRF: 0 mirtazapine 15 MG tablet 7.5 mg PO HS RF: 0 atorvastatin [Lipitor] 40 MG tablet 40 mg PO QPM RF: 0 lactulose [Constulose] 10 GM/15 ML solution 45 gm PO TID RF: 0 Levemir U-100 Insulin 100 UNIT/ML solution 22 unit SQ DAILY RF: 0 duloxetine [Cymbalta] 30 MG capsule,delayed release(DR/EC) 60 mg PO DAILY RF: 0 magnesium oxide 400 MG tablet 400 mg PO BID RF: 0 gabapentin 800 MG tablet 800 mg PO TID RF: 0 multivitamin 1 EACH capsule 1 ea PO DAILY RF: 0 Humalog KwikPen Insulin 100 UNIT/ML insulin pen 8 unit SQ AC RF: 0 thiamine mononitrate (vit B1) [Vitamin B-1 (mononitrate)] 100 MG tablet 100 mg PO DAILY RF: 0 Discharge Instructions Instructions: Chest Pain (ED) Additional Instructions: you chose to not wait for the repeat blood work and left against medical advise return to the emergency department if you change your mind about the blood work or if you have worsening difficulty breathing follow up with your primary care provider within a week Medical Decision Making 58 yo male with hx of alcohol abuse, tia, hld, prior opiate use and has been taken off opiates by pain clinic in the past, [facility]. He states the pain is on both sides of the chest and hurts with deep breaths. No pain with exertion, does have pain with palpation of the center of his chest. His heart score is 3 based on age and risk factors, will send troponin, ecg non diagnostis. No tearing back pain and normal vascular exam so doubt dissection. Will obtain Pe given wells moderate due to PE being just as likely dx, will obtain CTA pt only has pain when taking deep breath in, initial labs and imaging shows no acute findings. Will monitor and obtain delta troponin Pt is declining to stay to have the second troponin and ecg. He has capacity to make his own decisions and understands the risks of missing an VT including and becoming permanently disabled and he is willing to accept these risks. I did recommend that he f/u with his pcp samuel and will place him on our f/u list to try and help expedite this. He understands he can return if he changes his mind or return if he has worsening pain or difficulty breathing Differential Diagnosis nstemi, ptx, pna, pe Imaging Data Radiologic Study: Attestation: I personally reviewed and interpreted this imaging study as follows: Imaging: CT Scan Radiologist's impression: IMPRESSION: No acute findings. Cirrhotic liver Lab Data Lab results reviewed: Yes I reviewed the patient's lab results. ECG Data Attestation: I personally reviewed and interpreted this ECG (s) as follows: Prior ECG tracings: not available for review Interpretation: sinus rhythm, rate of 100, pr 124, qtc 446 HPI General Mode of arrival: EMS . Date/Time Provider Initiated Documentation: 06/23/18 03:10 . Limitations to Documentation: no limitations . Information obtained by: patient . History of Present Illness 58 year old M presents to the emergency department with the chief complaint of chest pain, described as moderate, with intensity rated at 8. Quality is described as sharp, and is localized to the chest. Patient reports no radiation. Patient started experiencing this hour(s) (2) and it has been constant. No relieving factors improve symptom(s), Other factors that worsen symptoms (palpation of the chest) . Patient notes no other symptoms.. Patient did receive the following treatments prior to arrival, none Related Data Home Medications Medication Instructions Recorded Confirmed epinephrine 0.3 mg IM DIRECTED PRN 01/15/13 06/23/18 mirtazapine 7.5 mg PO HS 11/21/15 06/16/18 duloxetine [Cymbalta] 60 mg PO DAILY 04/06/16 06/23/18 Levemir U-100 Insulin 22 unit SQ DAILY 08/19/16 06/23/18 atorvastatin [Lipitor] 40 mg PO QPM 08/19/16 06/23/18 lactulose [Constulose] 45 gm PO TID 08/19/16 06/23/18 Humalog KwikPen Insulin 8 unit SQ AC 11/19/16 06/23/18 gabapentin 800 mg PO TID 11/19/16 06/23/18 magnesium oxide 400 mg PO BID 11/19/16 06/23/18 multivitamin 1 ea PO DAILY 11/19/16 06/23/18 thiamine mononitrate (vit B1) 100 mg PO DAILY 11/19/16 06/23/18 [Vitamin B-1 (mononitrate)] aspirin [Aspir-81] 81 mg PO DAILY tab-cap 03/15/17 06/23/18 furosemide 20 mg PO BID tab-cap 03/15/17 06/23/18 oxazepam 10 mg PO BID 03/15/17 06/23/18 spironolactone 50 mg PO BID tab-cap 03/15/17 06/23/18 citalopram 40 mg tablet 40 mg PO DAILY 06/08/18 06/23/18 losartan 25 mg tablet 25 mg PO DAILY 06/08/18 06/23/18 trazodone 150 mg tablet 150 mg PO DAILY 06/08/18 06/23/18 Allergies Allergy/AdvReac Type Severity Reaction Status Date / Time venom-honey bee Allergy Severe signs of Unverified 06/23/18 03:10 stroke pregabalin [From Lyrica] Allergy Mild Unverified 06/23/18 03:10 varenicline tartrate AdvReac Unknown Nausea Unverified 06/23/18 03:10 [From Chantix] General Stated Complaint: Chest Pain SCOT: 2 Review of Systems Review of Systems All systems reviewed & are unremarkable except as noted in HPI and below Constitutional Denies chills, Denies fever(s) and Denies weakness ENT Denies change in voice Cardiovascular Denies dyspnea Respiratory Denies cough and Denies dyspnea Gastrointestinal Denies abdominal pain, Denies nausea and Denies vomiting Musculoskeletal Denies joint swelling Integumentary/Breasts Denies rash Neurologic Denies weakness Endocrine Denies heat intolerance [facility] Medical History Alcohol dependence Arthritis Bilateral leg edema Chronic pain Cirrhosis of liver Depression Diabetes mellitus, type II Diabetic peripheral neuropathy Encephalopathy, hepatic GERD (gastroesophageal reflux disease) Hepatitis C Hyperlipidemia Hypertension Knee pain, right Opioid abuse TIA (transient ischemic attack) Ulnar neuropathy Surgical History H/O cervical spine surgery (Acute) Hx of total knee arthroplasty (Acute) Social History housing: apartment marital status details: has home health lives independently: Yes number of children: 3 current occupational status: disabled what type of physical activity do you participate in: walking Smoking and Tabacco status: Current every day tobacco type: e-cigarettes alcohol intake: current alcohol intake frequency: a few times a week substance use type: marijuana Exam Const General: no acute distress Orientation: alert HENMT Head: normal to inspection Ears: external ears normal General nose exam: external nose normal Mouth: moist mucous membranes Eyes General: appearance normal, both eyes and all related structures Neck Neck: normal visual inspection Resp Effort & Inspection: normal respiratory effort and able to speak in complete sentences Cardio Rate: regular rate Skin General skin exam: no rashes or lesions noted Neuro General: alert and oriented x3 Extrem General: normal to inspection Psych Mental Status: mental status grossly normal Course Vital Signs Temperature 37.1 C 06/23/18 03:08 Pulse 98 H 06/23/18 03:08 Respiratory Rate 28 H 06/23/18 03:08 Blood Pressure 146/88 H 06/23/18 03:08 Pulse Oximetry 96 06/23/18 03:08 Temperature 37.1 C 06/23/18 03:08 Temperature Source Skin 06/23/18 03:08 Pulse 98 H 06/23/18 03:08 Respiratory Rate 28 H 06/23/18 03:08 Respiratory Effort 06/23/18 03:10 Blood Pressure 146/88 H 06/23/18 03:08 Blood Pressure Position Sitting 06/23/18 03:08 Pulse Oximetry 96 06/23/18 03:08 Oxygen Delivery Method Room Air 06/23/18 03:08 Oxygen Flow Rate 0 06/23/18 03:08 Pain Level 9 06/23/18 03:08
[2018-06-23 03:29] LABS: Absolute Basophil Count 0.02 k/cumm (0.0-0.2); Absolute Eosinophil Count 0.08 k/cumm (0.0-0.7); Absolute Lymphocyte Count 2.17 k/cumm (1.2-3.4); Absolute Monocyte Count 0.61 k/cumm (0.11-0.7); Absolute Neutrophil Count 3.99 k/cumm (1.2-6.7); Basophils % 0.3; Eosinophils % 1.2; HCT 37.1 % (40.0-50.0); HGB 12.1 g/dL (13.5-17.5); Lymphocytes % 31.6; Mean Corp. HGB Concentration 32.6 g/dL (32.0-36.0); Mean Corpuscular Hemoglobin 24.2 pg (27.0-33.0); Mean Corpuscular Volume 74.2 fL (80-95); Mean Platelet Volume 10.7 fL (8.0-11.0); Monocytes % 8.9; Platelet Count 140 x1000/uL (130-400); RBC Distribution Width 22.1 % (11.8-14.1); White Blood Cell Count 6.87 k/cumm (4.4-10.8)
[2018-06-23 03:43] LABS: INR 1.3 (0.9-1.1); PTT Activated 25.2 sec (21.0-31.4)
[2018-06-23 03:48] LABS: ALT 56 U/L (12-78); AST 68 U/L (15-37); Alkaline Phosphatase 112 U/L (46-116); Anion Gap 12.7 mmol/L (3-11); BUN 11 mg/dL (7-18); Bilirubin, Direct 0.25 mg/dL (0.00-0.20); Bilirubin, Total 0.6 mg/dL (0.2-1.0); CO2 25.3 mmol/L (21.0-32.0); CREATININE 1.24 mg/dL (0.70-1.30); Calcium 8.2 mg/dL (8.5-10.1); Chloride 99 mmol/L (98-107); Glucose 113 mg/dL (70-100); Lipase 193 U/L (73-393); Magnesium 1.2 mg/dL (1.8-2.4); Potassium 3.8 mmol/L (3.5-5.1); Sodium 137 mmol/L (136-145); Total Protein 7.6 g/dL (6.4-8.2)
[2018-06-23 03:52] LABS: ETHANOL BLOOD < 3.0 mg/dL (<3); Troponin I < 0.02 ng/mL (0.00-0.06)
--- NOTE | 2018-06-23 03:53 | DI.CT_ITS ---
SYMPTOM/DIAGNOSIS: CHEST PAIN PE CHEST CT: CT angiography was performed with multi slice acquisition and multi planar and 3D reconstruction. CT scan of the chest was performed according to the pulmonary embolus protocol. Comparison chest xray is 11/17/16. There is no evidence of a pulmonary embolus. The thoracic aorta is intact. No evidence of an aneurysm or dissection. Heart size is within normal limits. No significant pericardial effusion is seen. No findings to suggest right ventricular dysfunction are present. Coronary artery calcifications are seen. No significant thoracic adenopathy, effusion or pneumothorax is identified. There is scarring in the left lingula. No focal consolidating infiltrates are seen. The tracheobronchial tree is unremarkable. Upper abdominal images show a nodular liver with an enlarged left lobe suspicious for hepatic cirrhosis. Degenerative changes are seen in the spine. Post surgical changes are seen in the lower cervical and upper thoracic spine. IMPRESSION: No acute abnormality. No evidence of pulmonary embolus, thoracic aortic dissection or aneurysm. Findings suggestive of a cirrhotic liver.
[2018-06-23] MEDS: Omnipaque 350 MG/ML 100 ML BTL IJ (03:54)
--- NOTE | 2018-06-23 04:05 | DI.VRAD_ITS ---
EXAM: CT Angiography Chest With Contrast EXAM DATE/TIME: 06/23/2018 3:23 AM CLINICAL HISTORY: 58 years old, male; Pain; Chest pain; Prior surgery; Surgery type: Neck fusion TECHNIQUE: Axial computed tomographic angiography images of the chest with intravenous contrast using CT angiography protocol. All CT scans at this facility use at least one of these dose optimization techniques: automated exposure control; mA and/or kV adjustment per patient size (includes targeted exams where dose is matched to clinical indication); or iterative reconstruction. Coronal and sagittal reformatted images were created and reviewed. MIP reconstructed images were created and reviewed. CONTRAST: Contrast Material: 79 ml of [id number]; Contrast Route: iv COMPARISON: CR CHEST 2 VIEWS PA,LAT 11/17/2016 2:29 PM FINDINGS: Pulmonary arteries: Unremarkable. No obvious pulmonary emboli. Aorta: Unremarkable. No aortic aneurysm. No aortic dissection. Lungs: Unremarkable. No consolidation. No masses. No suspicious nodules. Pleural space: Unremarkable. No pneumothorax. No pleural effusion. Heart: Unremarkable. No pericardial effusion. No obvious heart strain. Liver: Nodular contour to the liver. Lymph nodes: Unremarkable. No enlarged lymph nodes. Bones/joints: Unremarkable. No acute fracture. Soft tissues: Unremarkable. IMPRESSION: No acute findings. Cirrhotic liver. Dictated and Authenticated by: Vu Sullivan MD. Ordering:GILMA Khan MD
== END 2018-06-23 04:25 | disposition left against medical advice (07) ==
PROVIDERS: Emergency Provider Emergency Medicine; PCP Family Medicine
DX: R07.9 Chest pain, unspecified (principal); Z53.29 Procedure and treatment not carried out because of patient's decision for other reasons
CPT/HCPCS: 36415; 71275; 80053; 80076; 83690; 93005; 99285; 80320; 83735; 84484; 85025; 85610; 85730; 93010; J3490

== ENCOUNTER 2018-06-23 05:11 | Emergency (ER) | payer MEDICAID, SELFPAY ==
[2018-06-23 05:21] VITALS: BP 152/82; PULSE 108; RESP 18; TEMP 36.8; O2SAT 96
--- NOTE | 2018-06-23 05:28 | ED.GENADUL_ITS ---
Discharge Plan Disposition Patient Disposition: HOME Condition: Stable Discharge Details Chief Complaint: Recheck Clinical Impression: Chest pain Primary Care Provider: Sushil Figueroa ED Provider: Bill Joseph Home Meds and New Rx's Prescriptions: No Action trazodone 150 mg tablet 150 mg PO DAILY RF: 0 citalopram 40 mg tablet 40 mg PO DAILY RF: 0 losartan 25 mg tablet 25 mg PO DAILY RF: 0 oxazepam 10 MG capsule 10 mg PO BID RF: 0 aspirin [Aspir-81] 81 MG tablet,delayed release (DR/EC) 81 mg PO DAILY RF: 0 furosemide 20 MG tablet 20 mg PO BID RF: 0 spironolactone 50 MG tablet 50 mg PO BID RF: 0 epinephrine 0.3 MG/SYR auto-injector 0.3 mg IM DIRECTED PRNRF: 0 mirtazapine 15 MG tablet 7.5 mg PO HS RF: 0 atorvastatin [Lipitor] 40 MG tablet 40 mg PO QPM RF: 0 lactulose [Constulose] 10 GM/15 ML solution 45 gm PO TID RF: 0 Levemir U-100 Insulin 100 UNIT/ML solution 22 unit SQ DAILY RF: 0 duloxetine [Cymbalta] 30 MG capsule,delayed release(DR/EC) 60 mg PO DAILY RF: 0 magnesium oxide 400 MG tablet 400 mg PO BID RF: 0 gabapentin 800 MG tablet 800 mg PO TID RF: 0 multivitamin 1 EACH capsule 1 ea PO DAILY RF: 0 Humalog KwikPen Insulin 100 UNIT/ML insulin pen 8 unit SQ AC RF: 0 thiamine mononitrate (vit B1) [Vitamin B-1 (mononitrate)] 100 MG tablet 100 mg PO DAILY RF: 0 Medical Decision Making 58 yo male here after he left AMA an hour ago as he did not want to have a delta troponin. He came in at that time for chest pain, initial ecg, troponin and CTA negative for acute pathology. His heart score was 3, recommended delta troponin but he declined and left AMA. He then realized he can't get in to his house until later thi smorning and decided to return to have his labs rechecked. He denies any pain or other symptoms during my exam at this time and is in no distress. Will obtain delta ecg and troponin troponin negative, he remains asymptomatic and walking without symptoms. Advised f/u with pcp and return precautions Differential Diagnosis nstemi, chest wall pain, pleurisy Lab Data Lab results reviewed: Yes I reviewed the patient's lab results. ECG Data Attestation: I personally reviewed and interpreted this ECG (s) as follows: Prior ECG tracings: available for review Interpretation: sinus rhythm, rate of 106, pr 124, no acute st t wave changes HPI General Mode of arrival: wheelchair . Date/Time Provider Initiated Documentation: 06/23/18 05:16 . Limitations to Documentation: no limitations . Information obtained by: patient . History of Present Illness 58 year old M presents to the emergency department with the chief complaint of blood draw, Patient reports no radiation. Patient started experiencing this hour(s) (6) and it has been now resolved. No relieving factors improve symptom(s), No exacerbating factors reported . Patient notes no other symptoms.. Patient did receive the following treatments prior to arrival, none Related Data Home Medications Medication Instructions Recorded Confirmed epinephrine 0.3 mg IM DIRECTED PRN 01/15/13 06/23/18 mirtazapine 7.5 mg PO HS 11/21/15 06/16/18 duloxetine [Cymbalta] 60 mg PO DAILY 04/06/16 06/23/18 Levemir U-100 Insulin 22 unit SQ DAILY 08/19/16 06/23/18 atorvastatin [Lipitor] 40 mg PO QPM 08/19/16 06/23/18 lactulose [Constulose] 45 gm PO TID 08/19/16 06/23/18 Humalog KwikPen Insulin 8 unit SQ AC 11/19/16 06/23/18 gabapentin 800 mg PO TID 11/19/16 06/23/18 magnesium oxide 400 mg PO BID 11/19/16 06/23/18 multivitamin 1 ea PO DAILY 11/19/16 06/23/18 thiamine mononitrate (vit B1) 100 mg PO DAILY 11/19/16 06/23/18 [Vitamin B-1 (mononitrate)] aspirin [Aspir-81] 81 mg PO DAILY tab-cap 03/15/17 06/23/18 furosemide 20 mg PO BID tab-cap 03/15/17 06/23/18 oxazepam 10 mg PO BID 03/15/17 06/23/18 spironolactone 50 mg PO BID tab-cap 03/15/17 06/23/18 citalopram 40 mg tablet 40 mg PO DAILY 06/08/18 06/23/18 losartan 25 mg tablet 25 mg PO DAILY 06/08/18 06/23/18 trazodone 150 mg tablet 150 mg PO DAILY 06/08/18 06/23/18 Allergies Allergy/AdvReac Type Severity Reaction Status Date / Time venom-honey bee Allergy Severe signs of Unverified 06/23/18 03:10 stroke pregabalin [From Lyrica] Allergy Mild Unverified 06/23/18 03:10 varenicline tartrate AdvReac Unknown Nausea Unverified 06/23/18 03:10 [From Chantix] General Stated Complaint: Recheck SCOT: 4 Review of Systems Review of Systems All systems reviewed & are unremarkable except as noted in HPI and below Constitutional Denies chills and Denies fever(s) ENT Denies change in voice Cardiovascular Denies dyspnea Respiratory Denies cough and Denies dyspnea Gastrointestinal Denies abdominal pain, Denies nausea and Denies vomiting Genitourinary Denies dysuria Musculoskeletal Denies joint swelling Integumentary/Breasts Denies rash [facility] Social History housing: apartment marital status details: has home health lives independently: Yes number of children: 3 current occupational status: disabled what type of physical activity do you participate in: walking Smoking and Tabacco status: Current every day tobacco type: e-cigarettes alcohol intake: current alcohol intake frequency: a few times a week substance use type: marijuana Exam Const General: no acute distress Orientation: alert HENMT Head: normal to inspection Ears: external ears normal General nose exam: external nose normal Mouth: moist mucous membranes Eyes General: appearance normal, both eyes and all related structures Neck Neck: normal visual inspection Resp Effort & Inspection: normal respiratory effort and able to speak in complete sentences Cardio Rate: regular rate Skin General skin exam: no rashes or lesions noted Neuro General: alert and oriented x3 Extrem General: normal to inspection Psych Mental Status: mental status grossly normal Course Vital Signs Temperature 36.8 C 06/23/18 05:21 Pulse 108 H 06/23/18 05:21 Respiratory Rate 18 06/23/18 05:21 Blood Pressure 152/82 H 06/23/18 05:21 Pulse Oximetry 96 06/23/18 05:21 Temperature 36.8 C 06/23/18 05:21 Pulse 108 H 06/23/18 05:21 Respiratory Rate 18 06/23/18 05:21 Blood Pressure 152/82 H 06/23/18 05:21 Pulse Oximetry 96 06/23/18 05:21 Oxygen Delivery Method Room Air 06/23/18 05:21 Oxygen Flow Rate 0 06/23/18 05:21
[2018-06-23 05:58] LABS: Troponin I < 0.02 ng/mL (0.00-0.06)
--- NOTE | 2018-06-23 06:11 | NUR.NOTE ---
Nursing Note: Pt refusing to take discharge paperwork.
== END 2018-06-23 06:10 | disposition home or self-care (01) ==
PROVIDERS: Emergency Provider Emergency Medicine; PCP Family Medicine
DX: R07.9 Chest pain, unspecified (principal)
CPT/HCPCS: 36415; 93005; 84484; 93010

== ENCOUNTER 2018-06-26 21:24 | Emergency (ER) | payer MEDICAID, SELFPAY ==
--- NOTE | 2018-06-26 20:57 | W.ED.GENAD ---
Discharge Plan Disposition Patient Disposition: OTHER Discharge Details Chief Complaint: PsychEval Clinical Impression: Acute alcohol intoxication Reason For Visit: [facility] Primary Care Provider: Sushil Figueroa ED Provider: Bill Joseph Home Meds and New Rx's Prescriptions: No Action trazodone 150 mg tablet 150 mg PO DAILY RF: 0 citalopram 40 mg tablet 40 mg PO DAILY RF: 0 losartan 25 mg tablet 25 mg PO DAILY RF: 0 oxazepam 10 MG capsule 10 mg PO BID RF: 0 aspirin [Aspir-81] 81 MG tablet,delayed release (DR/EC) 81 mg PO DAILY RF: 0 furosemide 20 MG tablet 20 mg PO BID RF: 0 spironolactone 50 MG tablet 50 mg PO BID RF: 0 epinephrine 0.3 MG/SYR auto-injector 0.3 mg IM DIRECTED PRNRF: 0 mirtazapine 15 MG tablet 7.5 mg PO HS RF: 0 atorvastatin [Lipitor] 40 MG tablet 40 mg PO QPM RF: 0 lactulose [Constulose] 10 GM/15 ML solution 45 gm PO TID RF: 0 Levemir U-100 Insulin 100 UNIT/ML solution 22 unit SQ DAILY RF: 0 duloxetine [Cymbalta] 30 MG capsule,delayed release(DR/EC) 60 mg PO DAILY RF: 0 magnesium oxide 400 MG tablet 400 mg PO BID RF: 0 gabapentin 800 MG tablet 800 mg PO TID RF: 0 multivitamin 1 EACH capsule 1 ea PO DAILY RF: 0 Humalog KwikPen Insulin 100 UNIT/ML insulin pen 8 unit SQ AC RF: 0 thiamine mononitrate (vit B1) [Vitamin B-1 (mononitrate)] 100 MG tablet 100 mg PO DAILY RF: 0 Medical Decision Making 58 yo male with hx of alcohol abuse, htn, who comes in with [facility] with reported si and hi. HE called ems and PD arrived and he was threatening to hurt everyone that showed up including ems. He has been drinking alcohol today, is caox4, denies falls and has no signs of traum and no focal motor or sensation deficits. HE is stating he is suicidal but does have heavy smell of alcohol on his breath. He was seen here last week for similar symptoms while intoxicated and sent to longterm for detox and was d/c'd from there as he was not suicidal at the time. HE denies other drug use. His alcohol level is 213 currently on bedside breathalyzer, do not suspect underlying medical process causing his symptoms. He is medically cleared to see mental health pt seen by mental health and he will be taken to the longterm and will be screened when he is sober Differential Diagnosis alcohol intoxication, si, hi HPI General Mode of arrival: EMS. Date/Time Provider Initiated Documentation: 06/26/18 21:37. Limitations to Documentation: no limitations. Information obtained by: patient. History of Present Illness 58 year old M presents to the emergency department with the chief complaint of Threatening others, described as mild, No relieving factors improve symptom(s), No exacerbating factors reported . Patient did receive the following treatments prior to arrival, none Related Data Home Medications Medication Instructions Recorded Confirmed epinephrine 0.3 mg IM DIRECTED PRN 01/15/13 06/23/18 mirtazapine 7.5 mg PO HS 11/21/15 06/16/18 duloxetine [Cymbalta] 60 mg PO DAILY 04/06/16 06/23/18 Levemir U-100 Insulin 22 unit SQ DAILY 08/19/16 06/23/18 atorvastatin [Lipitor] 40 mg PO QPM 08/19/16 06/23/18 lactulose [Constulose] 45 gm PO TID 08/19/16 06/23/18 Humalog KwikPen Insulin 8 unit SQ AC 11/19/16 06/23/18 gabapentin 800 mg PO TID 11/19/16 06/23/18 magnesium oxide 400 mg PO BID 11/19/16 06/23/18 multivitamin 1 ea PO DAILY 11/19/16 06/23/18 thiamine mononitrate (vit B1) 100 mg PO DAILY 11/19/16 06/23/18 [Vitamin B-1 (mononitrate)] aspirin [Aspir-81] 81 mg PO DAILY tab-cap 03/15/17 06/23/18 furosemide 20 mg PO BID tab-cap 03/15/17 06/23/18 oxazepam 10 mg PO BID 03/15/17 06/23/18 spironolactone 50 mg PO BID tab-cap 03/15/17 06/23/18 citalopram 40 mg tablet 40 mg PO DAILY 06/08/18 06/23/18 losartan 25 mg tablet 25 mg PO DAILY 06/08/18 06/23/18 trazodone 150 mg tablet 150 mg PO DAILY 06/08/18 06/23/18 Allergies Allergy/AdvReac Type Severity Reaction Status Date / Time venom-honey bee Allergy Severe signs of Unverified 06/23/18 03:10 stroke pregabalin [From Lyrica] Allergy Mild Unverified 06/23/18 03:10 varenicline tartrate AdvReac Unknown Nausea Unverified 06/23/18 03:10 [From Chantix] General SCOT: 4 Review of Systems Review of Systems All systems reviewed & are unremarkable except as noted in HPI and below ENT Denies change in voice Cardiovascular Denies chest pain and Denies dyspnea Respiratory Denies cough and Denies dyspnea Gastrointestinal Denies abdominal pain, Denies nausea and Denies vomiting Musculoskeletal Denies joint swelling Integumentary/Breasts Denies rash Endocrine Denies heat intolerance PFS Social History housing: apartment marital status details: has home health lives independently: Yes number of children: 3 current occupational status: disabled what type of physical activity do you participate in: walking Smoking and Tabacco status: Current every day tobacco type: e-cigarettes alcohol intake: current alcohol intake frequency: a few times a week substance use type: marijuana Exam Const General: other (violent) Orientation: alert HENMT Head: normal to inspection Ears: external ears normal General nose exam: external nose normal Mouth: moist mucous membranes Eyes General: appearance normal, both eyes and all related structures Neck Neck: normal visual inspection Resp Effort & Inspection: normal respiratory effort and able to speak in complete sentences Cardio Rate: regular rate Skin General skin exam: no rashes or lesions noted Neuro General: alert and oriented x3 Extrem General: normal to inspection Psych Mental Status: mental status grossly normal
--- NOTE | 2018-06-26 21:18 | ED.GENADUL_ITS ---
Discharge Plan Disposition Patient Disposition: OTHER Discharge Details Chief Complaint: PsychEval Clinical Impression: Acute alcohol intoxication Reason For Visit: [facility] Primary Care Provider: Sushil Figueroa ED Provider: Bill Joseph Home Meds and New Rx's Prescriptions: No Action trazodone 150 mg tablet 150 mg PO DAILY RF: 0 citalopram 40 mg tablet 40 mg PO DAILY RF: 0 losartan 25 mg tablet 25 mg PO DAILY RF: 0 oxazepam 10 MG capsule 10 mg PO BID RF: 0 aspirin [Aspir-81] 81 MG tablet,delayed release (DR/EC) 81 mg PO DAILY RF: 0 furosemide 20 MG tablet 20 mg PO BID RF: 0 spironolactone 50 MG tablet 50 mg PO BID RF: 0 epinephrine 0.3 MG/SYR auto-injector 0.3 mg IM DIRECTED PRNRF: 0 mirtazapine 15 MG tablet 7.5 mg PO HS RF: 0 atorvastatin [Lipitor] 40 MG tablet 40 mg PO QPM RF: 0 lactulose [Constulose] 10 GM/15 ML solution 45 gm PO TID RF: 0 Levemir U-100 Insulin 100 UNIT/ML solution 22 unit SQ DAILY RF: 0 duloxetine [Cymbalta] 30 MG capsule,delayed release(DR/EC) 60 mg PO DAILY RF: 0 magnesium oxide 400 MG tablet 400 mg PO BID RF: 0 gabapentin 800 MG tablet 800 mg PO TID RF: 0 multivitamin 1 EACH capsule 1 ea PO DAILY RF: 0 Humalog KwikPen Insulin 100 UNIT/ML insulin pen 8 unit SQ AC RF: 0 thiamine mononitrate (vit B1) [Vitamin B-1 (mononitrate)] 100 MG tablet 100 mg PO DAILY RF: 0 Medical Decision Making 58 yo male with hx of alcohol abuse, htn, who comes in with [facility] with reported si and hi. HE called ems and PD arrived and he was threatening to hurt everyone that showed up including ems. He has been drinking alcohol today, is caox4, denies falls and has no signs of traum and no focal motor or sensation deficits. HE is stating he is suicidal but does have heavy smell of alcohol on his breath. He was seen here last week for similar symptoms while intoxicated and sent to half-way for detox and was d/c'd from there as he was not suicidal at the time. HE denies other drug use. His alcohol level is 213 currently on bedside breathalyzer, do not suspect underlying medical process causing his symptoms. He is medically cleared to see mental health pt seen by mental health and he will be taken to the half-way and will be screened when he is sober Differential Diagnosis alcohol intoxication, si, hi HPI General Mode of arrival: EMS . Date/Time Provider Initiated Documentation: 06/26/18 21:37 . Limitations to Documentation: no limitations . Information obtained by: patient . History of Present Illness 58 year old M presents to the emergency department with the chief complaint of Threatening others, described as mild, No relieving factors improve symptom(s), No exacerbating factors reported . Patient did receive the following treatments prior to arrival, none Related Data Home Medications Medication Instructions Recorded Confirmed epinephrine 0.3 mg IM DIRECTED PRN 01/15/13 06/23/18 mirtazapine 7.5 mg PO HS 11/21/15 06/16/18 duloxetine [Cymbalta] 60 mg PO DAILY 04/06/16 06/23/18 Levemir U-100 Insulin 22 unit SQ DAILY 08/19/16 06/23/18 atorvastatin [Lipitor] 40 mg PO QPM 08/19/16 06/23/18 lactulose [Constulose] 45 gm PO TID 08/19/16 06/23/18 Humalog KwikPen Insulin 8 unit SQ AC 11/19/16 06/23/18 gabapentin 800 mg PO TID 11/19/16 06/23/18 magnesium oxide 400 mg PO BID 11/19/16 06/23/18 multivitamin 1 ea PO DAILY 11/19/16 06/23/18 thiamine mononitrate (vit B1) 100 mg PO DAILY 11/19/16 06/23/18 [Vitamin B-1 (mononitrate)] aspirin [Aspir-81] 81 mg PO DAILY tab-cap 03/15/17 06/23/18 furosemide 20 mg PO BID tab-cap 03/15/17 06/23/18 oxazepam 10 mg PO BID 03/15/17 06/23/18 spironolactone 50 mg PO BID tab-cap 03/15/17 06/23/18 citalopram 40 mg tablet 40 mg PO DAILY 06/08/18 06/23/18 losartan 25 mg tablet 25 mg PO DAILY 06/08/18 06/23/18 trazodone 150 mg tablet 150 mg PO DAILY 06/08/18 06/23/18 Allergies Allergy/AdvReac Type Severity Reaction Status Date / Time venom-honey bee Allergy Severe signs of Unverified 06/23/18 03:10 stroke pregabalin [From Lyrica] Allergy Mild Unverified 06/23/18 03:10 varenicline tartrate AdvReac Unknown Nausea Unverified 06/23/18 03:10 [From Chantix] General SCOT: 4 Review of Systems Review of Systems All systems reviewed & are unremarkable except as noted in HPI and below ENT Denies change in voice Cardiovascular Denies chest pain and Denies dyspnea Respiratory Denies cough and Denies dyspnea Gastrointestinal Denies abdominal pain, Denies nausea and Denies vomiting Musculoskeletal Denies joint swelling Integumentary/Breasts Denies rash Endocrine Denies heat intolerance PFS Social History housing: apartment marital status details: has home health lives independently: Yes number of children: 3 current occupational status: disabled what type of physical activity do you participate in: walking Smoking and Tabacco status: Current every day tobacco type: e-cigarettes alcohol intake: current alcohol intake frequency: a few times a week substance use type: marijuana Exam Const General: other (violent) Orientation: alert HENMT Head: normal to inspection Ears: external ears normal General nose exam: external nose normal Mouth: moist mucous membranes Eyes General: appearance normal, both eyes and all related structures Neck Neck: normal visual inspection Resp Effort & Inspection: normal respiratory effort and able to speak in complete sentences Cardio Rate: regular rate Skin General skin exam: no rashes or lesions noted Neuro General: alert and oriented x3 Extrem General: normal to inspection Psych Mental Status: mental status grossly normal
[2018-06-26 21:25] VITALS: RESP 16
--- NOTE | 2018-06-26 21:30 | NUR.NOTE ---
Nursing Note: unable to verify pt's meds or allergies, pt verbally abusive and non compliant with nursing interventions.
--- NOTE | 2018-06-26 21:43 | NUR.NOTE ---
Nursing Note: Chili and fluids given to pt. Mental health in room to see pt.
[2018-06-26 22:00] VITALS: BP 142/87; PULSE 95; RESP 18; TEMP 36.6; O2SAT 97
--- NOTE | 2018-06-26 22:04 | NUR.NOTE ---
Nursing Note: pt provided with blue paper scrub bottoms, assisted [facility] and [employer] with getting pt safely into cruiser to be transported to protective custody at [facility].
[2018-06-26 22:26] VITALS: BP 142/87; PULSE 95; RESP 18; TEMP 36.6; O2SAT 97
== END 2018-06-26 22:11 | disposition other institution (70) ==
LOC: ER 22:13
PROVIDERS: Emergency Provider Emergency Medicine; PCP Family Medicine
DX: F10.120 Alcohol abuse with intoxication, uncomplicated (principal); R45.851 Suicidal ideations; R45.850 Homicidal ideations
CPT/HCPCS: 80053; 80076; 99285; 80320; 80329; 85025; 99284

== ENCOUNTER 2018-06-27 00:02 | Emergency (ER) | payer MEDICAID, SELFPAY ==
--- NOTE | 2018-06-26 23:55 | W.ED.GENAD ---
Discharge Plan Disposition Patient Disposition: OTHER Condition: Stable Discharge Details Chief Complaint: Chest Pain Clinical Impression: Chest pain Reason For Visit: JUAN ANTONIO Primary Care Provider: Sushil Figueroa ED Provider: Bill Joseph Garrison Meds and New Rx's Prescriptions: No Action trazodone 150 mg tablet 150 mg PO DAILY RF: 0 citalopram 40 mg tablet 40 mg PO DAILY RF: 0 losartan 25 mg tablet 25 mg PO DAILY RF: 0 oxazepam 10 MG capsule 10 mg PO BID RF: 0 aspirin [Aspir-81] 81 MG tablet,delayed release (DR/EC) 81 mg PO DAILY RF: 0 furosemide 20 MG tablet 20 mg PO BID RF: 0 spironolactone 50 MG tablet 50 mg PO BID RF: 0 epinephrine 0.3 MG/SYR auto-injector 0.3 mg IM DIRECTED PRNRF: 0 mirtazapine 15 MG tablet 7.5 mg PO HS RF: 0 atorvastatin [Lipitor] 40 MG tablet 40 mg PO QPM RF: 0 lactulose [Constulose] 10 GM/15 ML solution 45 gm PO TID RF: 0 Levemir U-100 Insulin 100 UNIT/ML solution 22 unit SQ DAILY RF: 0 duloxetine [Cymbalta] 30 MG capsule,delayed release(DR/EC) 60 mg PO DAILY RF: 0 magnesium oxide 400 MG tablet 400 mg PO BID RF: 0 gabapentin 800 MG tablet 800 mg PO TID RF: 0 multivitamin 1 EACH capsule 1 ea PO DAILY RF: 0 Humalog KwikPen Insulin 100 UNIT/ML insulin pen 8 unit SQ AC RF: 0 thiamine mononitrate (vit B1) [Vitamin B-1 (mononitrate)] 100 MG tablet 100 mg PO DAILY RF: 0 Discharge Instructions Additional Instructions: Your chest pain is not from any emergent causes and you do not need any emergent workup for chest or abdominal complaints at this time. Follow up with your primary care provider within 1-2 weeks for follow up. Medical Decision Making 58 yo male with hx of alcohol abuse, hld, htn, who comes in with over a month of left sided chest pain. Was seen a week ago for similar symptoms with negative workup. He [facility] just [facility] the [facility] and told them of his chest pain and so came here. He states the pain is not increased with exertion and has pain with palpation to the left chest and is similar to his chronic chest pain. He has no findings to suggest acs and given recent negative workup do not feel further investigation is necessary for acute cardiac or pulmonary pathology such as acs, pe, dissection. He will f/u with his pcp and return if any changes occur and he is in agreement with this plan. He is clinically sober at this time but has smell of alcohol on his breath, his alcohol level at 9pm was 213 so still has alcohol in his system. HE has no one to come pick him up so will have to be taken back to [facility] until he is clinically sober. Differential Diagnosis chest wall pain, acs, pe ECG Data Attestation: I personally reviewed and interpreted this ECG (s) as follows: Prior ECG tracings: available for review Interpretation: sinus rhythm, rate of 102, pr 144, no acute st t wave ischemic changes compared to old ekg HPI General Mode of arrival: EMS. Date/Time Provider Initiated Documentation: 06/27/18 00:09. Limitations to Documentation: no limitations. Information obtained by: patient. History of Present Illness 58 year old M presents to the emergency department with the chief complaint of chest pain, described as moderate, with intensity rated at 6. Quality is described as aching, and is localized to the chest and left. Patient reports no radiation. Patient started experiencing this month(s) (1) and it has been constant. No relieving factors improve symptom(s), No exacerbating factors reported . Patient notes no other symptoms.. Patient did receive the following treatments prior to arrival, none Related Data Home Medications Medication Instructions Recorded Confirmed epinephrine 0.3 mg IM DIRECTED PRN 01/15/13 06/23/18 mirtazapine 7.5 mg PO HS 11/21/15 06/16/18 duloxetine [Cymbalta] 60 mg PO DAILY 04/06/16 06/23/18 Levemir U-100 Insulin 22 unit SQ DAILY 08/19/16 06/23/18 atorvastatin [Lipitor] 40 mg PO QPM 08/19/16 06/23/18 lactulose [Constulose] 45 gm PO TID 08/19/16 06/23/18 Humalog KwikPen Insulin 8 unit SQ AC 11/19/16 06/23/18 gabapentin 800 mg PO TID 11/19/16 06/23/18 magnesium oxide 400 mg PO BID 11/19/16 06/23/18 multivitamin 1 ea PO DAILY 11/19/16 06/23/18 thiamine mononitrate (vit B1) 100 mg PO DAILY 11/19/16 06/23/18 [Vitamin B-1 (mononitrate)] aspirin [Aspir-81] 81 mg PO DAILY tab-cap 03/15/17 06/23/18 furosemide 20 mg PO BID tab-cap 03/15/17 06/23/18 oxazepam 10 mg PO BID 03/15/17 06/23/18 spironolactone 50 mg PO BID tab-cap 03/15/17 06/23/18 citalopram 40 mg tablet 40 mg PO DAILY 06/08/18 06/23/18 losartan 25 mg tablet 25 mg PO DAILY 06/08/18 06/23/18 trazodone 150 mg tablet 150 mg PO DAILY 06/08/18 06/23/18 Allergies Allergy/AdvReac Type Severity Reaction Status Date / Time venom-honey bee Allergy Severe signs of Unverified 06/23/18 03:10 stroke pregabalin [From Lyrica] Allergy Mild Unverified 06/23/18 03:10 varenicline tartrate AdvReac Unknown Nausea Unverified 06/23/18 03:10 [From Chantix] General SCOT: 4 Review of Systems Review of Systems All systems reviewed & are unremarkable except as noted in HPI and below Constitutional Denies chills, Denies fever(s) and Denies weakness Cardiovascular Denies dyspnea Respiratory Denies cough and Denies dyspnea Gastrointestinal Denies abdominal pain, Denies nausea and Denies vomiting Genitourinary Denies dysuria Musculoskeletal Denies joint swelling Integumentary/Breasts Denies rash Neurologic Denies weakness Endocrine Denies heat intolerance [facility] Social History housing: apartment marital status details: has home health lives independently: Yes number of children: 3 current occupational status: disabled what type of physical activity do you participate in: walking Smoking and Tabacco status: Current every day tobacco type: e-cigarettes alcohol intake: current alcohol intake frequency: a few times a week substance use type: marijuana Exam Const General: no acute distress Orientation: alert HENMT Head: normal to inspection Ears: external ears normal General nose exam: external nose normal Mouth: moist mucous membranes Eyes General: appearance normal, both eyes and all related structures Neck Neck: normal visual inspection Resp Effort & Inspection: normal respiratory effort and able to speak in complete sentences Cardio Rate: regular rate Skin General skin exam: no rashes or lesions noted Neuro General: alert and oriented x3 Extrem General: normal to inspection Psych Mental Status: mental status grossly normal
--- NOTE | 2018-06-26 23:58 | ED.GENADUL_ITS ---
Discharge Plan Disposition Patient Disposition: OTHER Condition: Stable Discharge Details Chief Complaint: Chest Pain Clinical Impression: Chest pain Reason For Visit: JUAN ANTONIO Primary Care Provider: Sushil Figueroa ED Provider: Bill Joseph Del Rey Meds and New Rx's Prescriptions: No Action trazodone 150 mg tablet 150 mg PO DAILY RF: 0 citalopram 40 mg tablet 40 mg PO DAILY RF: 0 losartan 25 mg tablet 25 mg PO DAILY RF: 0 oxazepam 10 MG capsule 10 mg PO BID RF: 0 aspirin [Aspir-81] 81 MG tablet,delayed release (DR/EC) 81 mg PO DAILY RF: 0 furosemide 20 MG tablet 20 mg PO BID RF: 0 spironolactone 50 MG tablet 50 mg PO BID RF: 0 epinephrine 0.3 MG/SYR auto-injector 0.3 mg IM DIRECTED PRNRF: 0 mirtazapine 15 MG tablet 7.5 mg PO HS RF: 0 atorvastatin [Lipitor] 40 MG tablet 40 mg PO QPM RF: 0 lactulose [Constulose] 10 GM/15 ML solution 45 gm PO TID RF: 0 Levemir U-100 Insulin 100 UNIT/ML solution 22 unit SQ DAILY RF: 0 duloxetine [Cymbalta] 30 MG capsule,delayed release(DR/EC) 60 mg PO DAILY RF: 0 magnesium oxide 400 MG tablet 400 mg PO BID RF: 0 gabapentin 800 MG tablet 800 mg PO TID RF: 0 multivitamin 1 EACH capsule 1 ea PO DAILY RF: 0 Humalog KwikPen Insulin 100 UNIT/ML insulin pen 8 unit SQ AC RF: 0 thiamine mononitrate (vit B1) [Vitamin B-1 (mononitrate)] 100 MG tablet 100 mg PO DAILY RF: 0 Discharge Instructions Additional Instructions: Your chest pain is not from any emergent causes and you do not need any emergent workup for chest or abdominal complaints at this time. Follow up with your primary care provider within 1-2 weeks for follow up. Medical Decision Making 58 yo male with hx of alcohol abuse, hld, htn, who comes in with over a month of left sided chest pain. Was seen a week ago for similar symptoms with negative workup. He had just arrived at the senior care and told them of his chest pain and so came here. He states the pain is not increased with exertion and has pain with palpation to the left chest and is similar to his chronic chest pain. He has no findings to suggest acs and given recent negative workup do not feel further investigation is necessary for acute cardiac or pulmonary pathology such as acs, pe, dissection. He will f/u with his pcp and return if any changes occur and he is in agreement with this plan. He is clinically sober at this time but has smell of alcohol on his breath, his alcohol level at 9pm was 213 so still has alcohol in his system. HE has no one to come pick him up so will have to be taken back to senior care until he is clinically sober. Differential Diagnosis chest wall pain, acs, pe ECG Data Attestation: I personally reviewed and interpreted this ECG (s) as follows: Prior ECG tracings: available for review Interpretation: sinus rhythm, rate of 102, pr 144, no acute st t wave ischemic changes compared to old ekg HPI General Mode of arrival: EMS . Date/Time Provider Initiated Documentation: 06/27/18 00:09 . Limitations to Documentation: no limitations . Information obtained by: patient . History of Present Illness 58 year old M presents to the emergency department with the chief complaint of chest pain, described as moderate, with intensity rated at 6. Quality is described as aching, and is localized to the chest and left. Patient reports no radiation. Patient started experiencing this month(s) (1) and it has been constant. No relieving factors improve symptom(s), No exacerbating factors reported . Patient notes no other symptoms.. Patient did receive the following treatments prior to arrival, none Related Data Home Medications Medication Instructions Recorded Confirmed epinephrine 0.3 mg IM DIRECTED PRN 01/15/13 06/23/18 mirtazapine 7.5 mg PO HS 11/21/15 06/16/18 duloxetine [Cymbalta] 60 mg PO DAILY 04/06/16 06/23/18 Levemir U-100 Insulin 22 unit SQ DAILY 08/19/16 06/23/18 atorvastatin [Lipitor] 40 mg PO QPM 08/19/16 06/23/18 lactulose [Constulose] 45 gm PO TID 08/19/16 06/23/18 Humalog KwikPen Insulin 8 unit SQ AC 11/19/16 06/23/18 gabapentin 800 mg PO TID 11/19/16 06/23/18 magnesium oxide 400 mg PO BID 11/19/16 06/23/18 multivitamin 1 ea PO DAILY 11/19/16 06/23/18 thiamine mononitrate (vit B1) 100 mg PO DAILY 11/19/16 06/23/18 [Vitamin B-1 (mononitrate)] aspirin [Aspir-81] 81 mg PO DAILY tab-cap 03/15/17 06/23/18 furosemide 20 mg PO BID tab-cap 03/15/17 06/23/18 oxazepam 10 mg PO BID 03/15/17 06/23/18 spironolactone 50 mg PO BID tab-cap 03/15/17 06/23/18 citalopram 40 mg tablet 40 mg PO DAILY 06/08/18 06/23/18 losartan 25 mg tablet 25 mg PO DAILY 06/08/18 06/23/18 trazodone 150 mg tablet 150 mg PO DAILY 06/08/18 06/23/18 Allergies Allergy/AdvReac Type Severity Reaction Status Date / Time venom-honey bee Allergy Severe signs of Unverified 06/23/18 03:10 stroke pregabalin [From Lyrica] Allergy Mild Unverified 06/23/18 03:10 varenicline tartrate AdvReac Unknown Nausea Unverified 06/23/18 03:10 [From Chantix] General SCOT: 4 Review of Systems Review of Systems All systems reviewed & are unremarkable except as noted in HPI and below Constitutional Denies chills, Denies fever(s) and Denies weakness Cardiovascular Denies dyspnea Respiratory Denies cough and Denies dyspnea Gastrointestinal Denies abdominal pain, Denies nausea and Denies vomiting Genitourinary Denies dysuria Musculoskeletal Denies joint swelling Integumentary/Breasts Denies rash Neurologic Denies weakness Endocrine Denies heat intolerance [facility] Social History housing: apartment marital status details: has home health lives independently: Yes number of children: 3 current occupational status: disabled what type of physical activity do you participate in: walking Smoking and Tabacco status: Current every day tobacco type: e-cigarettes alcohol intake: current alcohol intake frequency: a few times a week substance use type: marijuana Exam Const General: no acute distress Orientation: alert HENMT Head: normal to inspection Ears: external ears normal General nose exam: external nose normal Mouth: moist mucous membranes Eyes General: appearance normal, both eyes and all related structures Neck Neck: normal visual inspection Resp Effort & Inspection: normal respiratory effort and able to speak in complete sentences Cardio Rate: regular rate Skin General skin exam: no rashes or lesions noted Neuro General: alert and oriented x3 Extrem General: normal to inspection Psych Mental Status: mental status grossly normal
[2018-06-27 00:10] VITALS: RESP 16
--- NOTE | 2018-06-27 00:18 | NUR.NOTE ---
Nursing Note: Pt arrives at ED via [facility], currently in protective custody at [facility]- unaccompanied by corrections staff. Corrections called access to state they had no one to come sit with pt. Pt arrives, demanding to be sent home- yelling and screaming obscenities at this nurse. Cold wet socks removed, given new clean socks. Pt removes blue sacrub pants and puts back on own black shorts with minimal assistance. Helped into wheelchair after refusing to re enter bed, where pt proceeded to try to leave ED room and ED hallway to waiting room. Attempted verbal redirection from this nurse, and Tena Galvan. Pt continues to yell and scream with vulgar comments to this nurse. Remain 1:1 with pt for safety. Pt throws a blue plate towards this nuse to get that lard ass away from me. addresses pt, provide pt with phone. Corrections called and has not answered. [facility] to come bring pt back to corrections, as he has been evaluated and medically cleared. Will continue to monitor.
[2018-06-27 00:22] VITALS: RESP 16
[2018-06-27 00:37] VITALS: RESP 16
== END 2018-06-27 00:33 | disposition other institution (70) ==
PROVIDERS: Emergency Provider Emergency Medicine; PCP Family Medicine
DX: R07.9 Chest pain, unspecified (principal); R45.1 Restlessness and agitation; F10.120 Alcohol abuse with intoxication, uncomplicated; I10 Essential (primary) hypertension
CPT/HCPCS: 93005; 99283; 93010

== ENCOUNTER 2018-10-29 18:55 | Emergency (ER) | payer MEDICAID, SELFPAY ==
[2018-10-29 19:10] VITALS: BP 122/88; PULSE 100; RESP 16; TEMP 36.2; O2SAT 100
--- NOTE | 2018-10-29 19:35 | DI.CT_ITS ---
SYMPTOM/DIAGNOSIS: TRAUMA, FELL AT HOME, INTOXICATED NONCONTRAST HEAD CT: Comparison is made with 09/23/16. There is patient motion artifact which does limit the evaluation of the examination. There is global cerebral atrophy. Areas of decreased attenuation are seen in the white matter most consistent with small vessel ischemic disease. No acute intracranial hemorrhage, midline shift, mass effect is identified. The visualized paranasal sinuses are clear as are the mastoid air cells. The calvarium is intact. There does appear to be a small scalp hematoma overlying the left frontal bone. IMPRESSION: No acute intracranial process. CERVICAL SPINE CT: Multiple contiguous axial images of the cervical spine were obtained. Sagittal and reformatted images were evaluated on the Siemens work station. There is patient motion artifact which does limit evaluation. Post surgical changes are seen throughout the cervical spine. No acute fractures are seen. There is anterolisthesis of C 2 which is likely degenerative. Degenerative changes and facet arthrosis is seen throughout the cervical spine. IMPRESSION: No acute fracture or subluxation in the cervical spine. CHEST/ABDOMEN AND PELVIC CT: ABDOMEN AND PELVIS: Comparison is made with 11/17/16. There is patient motion artifact. This does limit the evaluation of the examination. The liver has a nodular contour with an enlarged left lobe. The findings are consistent with hepatic steatosis. The lack of IV contrast does limit evaluation of the abdominal and pelvic organs. The unenhanced pancreas, spleen, adrenal glands, gallbladder, bile ducts and kidneys are unremarkable. The urinary bladder is intact. The reproductive organs are unremarkable. The bowel shows no evidence of obstruction or inflammation. There is a normal appendix present. There is atherosclerosis of the abdominal aorta but no aneurysmal dilatation. No significant abdominal or pelvic adenopathy, ascites or pneumoperitoneum is seen. Degenerative changes are seen in the lumbar spine and pelvis but no acute fracture is seen. IMPRESSION: No acute abdominal or pelvic organ injury. CHEST: Lack of IV contrast does limit evaluation of the great vessels. There is patient motion artifact present. There is atherosclerosis of the thoracic aorta but no aneurysmal dilatation is seen. Heart size appears within normal limits. No significant pericardial effusion is seen. Coronary artery calcifications are present. No significant thoracic adenopathy is present. There is no evidence of a pneumothorax. There are nondisplaced fractures at the posterior aspects of the left fourth and fifth ribs with adjacent soft tissue hemorrhage. No pleural effusion is appreciated. No pneumothorax is identified. IMPRESSION: Fractures involving the left fourth and fifth ribs posteriorly.
--- NOTE | 2018-10-29 19:36 | W.ED.GENAD ---
Discharge Plan Disposition Patient Disposition: AGAINST MEDICAL ADVICE Condition: Stable Discharge Details Chief Complaint: Trauma Clinical Impression: Chronic alcohol use, Fall, Left rib fracture Primary Care Provider: Sushil Figueroa ED Provider: Blue Wiggins Home Meds and New Rx's Prescriptions: New lidocaine [Lidoderm] 1 PATCH patch 1 patch Topical Q24H Qty: 4 RF: 0 No Action trazodone 150 mg tablet 150 mg PO DAILY RF: 0 citalopram 40 mg tablet 40 mg PO DAILY RF: 0 losartan 25 mg tablet 25 mg PO DAILY RF: 0 oxazepam 10 MG capsule 10 mg PO BID RF: 0 aspirin [Aspir-81] 81 MG tablet,delayed release (DR/EC) 81 mg PO DAILY RF: 0 furosemide 20 MG tablet 20 mg PO BID RF: 0 spironolactone 50 MG tablet 50 mg PO BID RF: 0 epinephrine 0.3 MG/SYR auto-injector 0.3 mg IM DIRECTED PRNRF: 0 mirtazapine 15 MG tablet 7.5 mg PO HS RF: 0 atorvastatin [Lipitor] 40 MG tablet 40 mg PO QPM RF: 0 lactulose [Constulose] 10 GM/15 ML solution 45 gm PO TID RF: 0 Levemir U-100 Insulin 100 UNIT/ML solution 22 unit SQ DAILY RF: 0 duloxetine [Cymbalta] 30 MG capsule,delayed release(DR/EC) 60 mg PO DAILY RF: 0 magnesium oxide 400 MG tablet 400 mg PO BID RF: 0 gabapentin 800 MG tablet 800 mg PO TID RF: 0 multivitamin 1 EACH capsule 1 ea PO DAILY RF: 0 Humalog KwikPen Insulin 100 UNIT/ML insulin pen 8 unit SQ AC RF: 0 thiamine mononitrate (vit B1) [Vitamin B-1 (mononitrate)] 100 MG tablet 100 mg PO DAILY RF: 0 Discharge Instructions Instructions: Rib Fracture (ED) Additional Instructions: Sir, it is without a doubt that you are leaving against my medical advice. This is not recommended, and I am very concerned that you will do very poorly without additional help or assistance at home. In spite of this I do hope the best for you, and for your rib pain please utilize the Lidoderm patches as directed. If you notice any worsening of your symptoms, or any new symptoms such as vomiting, diarrhea, fever, chills, shortness of breath, chest pain, numbness, weakness, or fainting , please return immediately to the emergency department for reevaluation. Please follow up with your primary care provider as soon as possible for reassessment and reevaluation. If you change your mind at all and would agree with the placement please return immediately. Referrals: Marisela Rudd [REGISTERED NURSE] - Discharge Data Discharge Date/Time-TO BE ENTERED AT DEPARTURE: 10/30/18 11:07 Medical Decision Making <RANDY Heck - Last Filed: 10/30/18 17:32> Patient 58-year-old male presenting today with chief complaint of fall while intoxicated. Patient reports that he had 2 alcoholic beverages today, reported having 12 to EMS. , Patient is a known alcoholic with history of cirrhosis, hypokalemia, TIA, alcohol withdrawal, pancreatitis require thrombus cytopenia. Reports that he stumbled and fell landing on furniture. Remembers the fall. Denies loss of consciousness. Patient reports that he did strike his head and gestures to an abrasion. However, the abrasion on the left superior aspect of his forehead appears old not from today. When questioned on this he does report that he did fall a few days ago and it may be from that. Is endorsing neck pain is currently in a c-collar. No pain to palpation of the chest, abdomen, pelvis. Patient is incontinent at baseline is currently in a depends. Has ecchymosis and abrasion to the left hip. Patient reports that he has fallen multiple times and has been sitting for an extended period of time, often incontinent of stool. Does have breakdown to his bottom with large amount of erythema and a 7 cm x 3 cm area of superficial skin breakdown to the left gluteus. He is belligerent, intoxicated. Patient is very angry, requesting food and a larger room. Also requesting that we call Alisha. No evidence of acute head trauma. Patient has had neck surgery historically from previous trauma. Will obtain imaging and laboratory evaluation. Patient is noted to be anemic with a hemoglobin of 11, this is not atypical for the patient. Platelet count is also low at 90, again baseline for the patient. Potassium is slightly low at 3.4. BUN is 4, this is typical for the patient. Magnesium slightly low 1.7. Alk phos is elevated at 140, this took for the patient. Troponin remains normal limits. Urinalysis notable for small amount of leukocyte esterase and few bacteria. No evidence of contamination, will treat with antibiotics. CT reviewed by radiologist. CT chest concerning for minimal left posterior subpleural thickening consistent with hemorrhage associated with acute rib fractures. Nondisplaced rib fractures the posterior aspect of the left fourth and fifth ribs. Postoperative changes in the lower cervical and upper thoracic spine bilateral posterior intra-articular instrumentation. Degenerative spondylolysis throughout the thoracic spine. No acute thoracic vertebral fracture. Abdomen and pelvis shows no acute abdominopelvic abnormality. CT of the patient's head reviewed by radiologist notes no global cerebral atrophy consistent with patient's age. Decreased attenuation in the white matter tracts of both cerebral cultures is nonspecific but typically seen with small vessel disease/chronic white matter ischemic changes of aging. No intercurrent hemorrhage or mass-effect. Advise no acute pathology. Cervical spine reviewed and significant for progestogens of cervical spine. No acute fracture. Minimal anterolisthesis, likely degenerative. Degenerative disc disease and facet arthrosis throughout the cervical spine. They did note that the exam is slightly suboptimal 6 months with motion. Otherwise overall no acute fracture. Discussed these findings with the patient. This patient is intoxicated with alcohol of 276, do not feel that I am able to safely clear his cervical spine. Patient however became very belligerent and angry, throwing the cervical collar. I did examine the patient he is having midline tenderness really diffusely throughout the cervical spine. He does report that he has chronic pain there and again, refuses to wear the cervical collar. I did discuss with him the risks associated with removal prematurely and he continues to refuse having some place. Patient I discussed his current physical state in depth. I did contact his ex-girlfriend who is listed as point of sheet music salesperson in his chart. She would like to not be contacted further in this matter. States that she is not distancing herself from the patient as his alcohol has continued to worsen. Patient does not have support system at this time. She is also concerned the patient is likely to be evicted from his current apartment. I discussed this with the patient who concurs. He is concerned about his living situation and current state of health. I do not feel that he is safe for discharge home as he likely continue to fail on his own. He does express want at this time for long-term placement Consulted with acute care certified nursing assistant regarding his living situation. She advises he would likely be most appropriate for SNF placement. Urinalysis concerning for urinary tract infection, will begin the patient on Keflex. Patient continuing to be agitated, will give p.o. Ativan, I am concerned this patient that is at high risk for alcohol withdrawal. Patient will remain in the department until he is able to sober up further and will be able to reexamine the patient, disposition the patient and I again discussed placement with family day care provider. At the end of my shift, care was transitioned to Dr. Chris with disposition pending. He will continue to monitor by nursing staff for alcohol withdrawal. Patient has one-to-one observation. <Jimi Chris MD - Last Filed: 10/30/18 07:28> 7:20 - Patient signed out to me pending sober eval. I placed him on CIWA protocol but he has not required any further Ativan since the one milligram given last night. Lidoderm patch was applied to the area of his discomfort from rib fractures. He refused to wear the c-collar. This morning he has no complaints of neck pain and palpation of his cervical spine reveals no tenderness. Denies any difficulty breathing. Does have fair amount of pain with movement due to the rib fractures. Continues to request placement as he had done last night. He is now sober and CPSO is released. He is not a behavioral patient but we had a CPSO due to his level of intoxication and risk of fall if he tried to get up. I reviewed his labs. I do not think he has a UTI and I have discontinued the Keflex. I have ordered his morning medications while we wait for care management to see patient and attempt placement. Lab Data Lab results reviewed: Yes I reviewed the patient's lab results. <Blue Wiggins DO - Last Filed: 10/30/18 11:08> The patient was signed out to me pending placement by Dr. Chris. Repeat exam demonstrates a notably clinically sober patient with no clinical signs of intoxication whatsoever. He is of sound mind. After discussion with case management he is refusing admission, hospitalization, or placement in a SNIF. I had a very long sitdown discussion with the patient, and he consistently shows a stable mental status without signs of intoxication or mental compromise. I had a long discussion with him regarding my high concern for compromise, worsening of his symptoms, and the high likelihood of , and he states that he understands this, and repeated this back to me as well as my concerns. Case management has arranged for his recovery operator helper to take him home. They will be following up with him closely on an outpatient setting. Currently he shows no signs of DTs, his vital signs are stable, and time of reassessment I see no significant etiology reflecting acute life-threatening illness or compromise. Patient is of a appropriate age to make decisions. The patient is of sound mind, appears clinically sober, and has capacity to make decisions by my clinical exam. We have provided options for treatment and discussed the risks and benefits of these options and refusing these options, including and disability specific to the patient's pathology. Patient is able to discuss the risks and benefits and alternatives of treatment and refusing treatment. We have tried to involve the patient's family or support group that was present here or by contacting them on the phone. The patient chooses to leave before evaluation and treatment is complete AGAINST MEDICAL ADVICE. The patient is able to speak clearly. There is no demonstration of any slurring of speech. There is evidence of clear decision making capacity. HPI <RANDY Heck - Last Filed: 10/30/18 17:32> General Mode of arrival: EMS. Date/Time Provider Initiated Documentation: 10/29/18 19:31. Limitations to Documentation: altered mental status (intoxicated). Information obtained by: patient, EMS and RN notes reviewed. HPI Narrative: Patient is a 58-year-old intoxicated male presents today, brought in via EMS, with chief complaint of fall. Reports that he stumbled at home and fell landing on some of his furniture. States that he struck the anterior aspect of his head. Is endorsing headache neck pain at this time. Patient reports that he has had a couple drinks Will not define how many this is. States he drinks on a daily basis. Reports remembering fall, no LOC. In a c-collar placed by EMS. Related Data Home Medications Medication Instructions Recorded Confirmed epinephrine 0.3 mg IM DIRECTED PRN 01/15/13 10/29/18 mirtazapine 7.5 mg PO HS 11/21/15 10/29/18 duloxetine [Cymbalta] 60 mg PO DAILY 04/06/16 10/29/18 Levemir U-100 Insulin 22 unit SQ DAILY 08/19/16 10/29/18 atorvastatin [Lipitor] 40 mg PO QPM 08/19/16 10/29/18 lactulose [Constulose] 45 gm PO TID 08/19/16 10/29/18 Humalog KwikPen Insulin 8 unit SQ AC 11/19/16 10/29/18 gabapentin 800 mg PO TID 11/19/16 10/29/18 magnesium oxide 400 mg PO BID 11/19/16 10/29/18 multivitamin 1 ea PO DAILY 11/19/16 10/29/18 thiamine mononitrate (vit B1) 100 mg PO DAILY 11/19/16 10/29/18 [Vitamin B-1 (mononitrate)] aspirin [Aspir-81] 81 mg PO DAILY tab-cap 03/15/17 10/29/18 furosemide 20 mg PO BID tab-cap 03/15/17 10/29/18 oxazepam 10 mg PO BID 03/15/17 10/29/18 spironolactone 50 mg PO BID tab-cap 03/15/17 10/29/18 citalopram 40 mg tablet 40 mg PO DAILY 06/08/18 10/29/18 losartan 25 mg tablet 25 mg PO DAILY 06/08/18 10/29/18 trazodone 150 mg tablet 150 mg PO DAILY 06/08/18 10/29/18 lidocaine [Lidoderm] 1 patch TOPICAL Q24H #4 patch 10/30/18 Previous Rx's Medication Instructions Recorded lidocaine [Lidoderm] 1 patch TOPICAL Q24H #4 patch 10/30/18 Allergies Allergy/AdvReac Type Severity Reaction Status Date / Time venom-honey bee Allergy Severe signs of Unverified 10/29/18 22:41 stroke pregabalin [From Lyrica] Allergy Mild Unverified 10/29/18 22:41 varenicline tartrate AdvReac Unknown Nausea Unverified 10/29/18 22:41 [From Chantix] General Stated Complaint: Trauma SCOT: 2 Review of Systems <RANDY Heck - Last Filed: 10/30/18 17:32> Review of Systems Unobtainable due to mental status (patient intoxicated) PFSH <RANDY Heck - Last Filed: 10/30/18 17:32> Medical History Alcohol dependence Arthritis Bilateral leg edema Chronic pain Cirrhosis of liver Depression Diabetes mellitus, type II Diabetic peripheral neuropathy Encephalopathy, hepatic GERD (gastroesophageal reflux disease) Hepatitis C Hyperlipidemia Hypertension Knee pain, right Opioid abuse TIA (transient ischemic attack) Ulnar neuropathy Social History Smoking/Tobacco Use Status: Current every day Tobacco Type: e-cigarettes Alcohol Intake: current Alcohol Intake frequency: a few times a week Drug use: Never Substance use type: marijuana Housing: apartment Number of Children: 3 What type of physical activity do you participate in: walking Do you feel safe in your relationship?: Yes Exam <RANDY Heck - Last Filed: 10/30/18 17:32> Const General: comfortable, no acute distress, well developed, combative, disheveled and intoxicated appearing Nutritional Appearance: well nourished and overweight Orientation: alert, awake and oriented x3 HENMT Head: normal to inspection, no palpable skull fracture, normocephalic and atraumatic Ears: hearing grossly normal bilaterally, external ears normal and TM's normal bilaterally General nose exam: external nose normal Mouth: oral mucosae normal, lip normal and tongue normal Throat: posterior oropharynx normal Eyes Visual Sewell: normal visual sewell by confrontation Alignment and Position: alignment normal Periorbital: periorbital findings normal Eyelids: eyelids normal Conjunctivae: conjunctival abnormality left subconjunctival hemorrhage (lateral) Pupils: PERRL EOM: EOM intact bilaterally Neck Neck: normal visual inspection, trachea midline and supple Chest Chest: normal inspection of the chest, normal palpation of entire chest wall, no crepitus and no localized rib tenderness Resp Effort & Inspection: normal respiratory effort, able to speak in complete sentences and no respiratory distress Auscultation: clear to auscultation bilaterally, no rales, no rhonchi and no wheezes Cardio Rate: regular rate Rhythm: regular rhythm Heart Sounds: S1 normal and S2 normal GI Inspection: normal to inspection, no abdominal wall ecchymosis, no edema, non-distended and obesity Palpation: soft, no hepatosplenomegaly, not firm, no guarding, no pulsatile masses, not rigid and nontender Auscultation: normal bowel sounds Back/Spine/Pelvis Back: no CVA tenderness Cervical Spine: No normal cervical lordosis (old midline incision with straightening of cervical lordosis), collar present, cervical spinal tenderness and No step off deformity Thoracic/Lumbar Spine: thoracic and lumbar spine normal to inspection, thoraco-lumbar ROM normal, No thoraco-lumbar ROM limited, No thoraco-lumbar spasm and No thoracic spinal tenderness Pelvis: no pain with anterior-posterior compression and no pain with lateral compression Skin General skin exam: ecchymosis (8cm linear ecchymotic area left anterior hip) and erythema (to buttock, skin break down to left buttock 7cm x 3cm ) Neuro General: alert, awake, oriented x3, gait normal, tone normal and moves all extremities Cranial Nerves: CN's II-XI intact bilaterally Cognition: normal cognition Speech: speech normal Gait: gait abnormal (has remained in stretcher) Motor: muscle tone normal throughout and strength 5/5 throughout Sensory Exam: no sensory deficits noted (no saddle paresthesias) Extrem General: normal to inspection, full ROM, normal capillary refill, no pedal edema and no calf tenderness Psych Appearance: grossly normal and well kempt Mental Status: mental status grossly normal Speech and Movement: speech and movement normal Course <RANDY Heck - Last Filed: 10/30/18 17:32> Vital Signs Temperature 36.2 C L 10/29/18 19:10 Pulse 100 H 10/29/18 19:10 Respiratory Rate 16 10/29/18 19:10 Blood Pressure 122/88 10/29/18 19:10 Pulse Oximetry 100 10/29/18 19:10 Temperature 36.2 C L 10/29/18 19:10 Temperature Source Temporal Artery Scan 10/29/18 19:10 Pulse 100 H 10/29/18 19:10 Respiratory Rate 16 10/29/18 19:10 Blood Pressure 122/88 10/29/18 19:10 Blood Pressure Position Supine 10/29/18 19:10 Pulse Oximetry 100 10/29/18 19:10 Oxygen Delivery Method Room Air 10/29/18 19:10 Oxygen Flow Rate 0 10/29/18 19:10 Pain Level 10 10/29/18 19:10 Sign Out <RANDY Heck - Last Filed: 10/30/18 17:32> Sign Out Data: Sign Out Comment: Care transitioned to Dr. Chris. Patient is intoxicated. Has one to one observation. Has received 1mg of PO Ativan. Has 2 left sided rib fractures after fall. Is refusing to wear collar although he continues to endorse pain. Will need reassessment. Risk for himself at home, will need acute care certified nursing assistant assistance with housing and placement into SNF. UTI and concerns for cellulitis. Given PO Keflex Last updated by Alissa Tam PA at 10/30/18 00:11 Sign Out Comment: Patient spine has been cleared. He is sitting in a recliner. He is waiting for care management to attempt to get him placement. Care signed over to Dr. Wiggins Last updated by Jmii Chris MD at 10/30/18 07:58
[2018-10-29 20:38] LABS: Abs Immature Grans 0.01 k/cumm (0.0-0.09); Absolute Basophil Count 0.01 k/cumm (0.0-0.2); Absolute Eosinophil Count 0.03 k/cumm (0.0-0.7); Absolute Lymphocyte Count 2.22 k/cumm (1.2-3.4); Absolute Monocyte Count 0.42 k/cumm (0.11-0.7); Absolute Neutrophil Count 3.54 k/cumm (1.2-6.7); Basophils % 0.2; Eosinophils % 0.5; Immature Grans % 0.2; Lymphocytes % 35.6; Mean Corp. HGB Concentration 32.4 g/dL (32.0-36.0); Mean Corpuscular Hemoglobin 23.2 pg (27.0-33.0); Mean Corpuscular Volume 71.7 fL (80-95); Mean Platelet Volume 9.9 fL (8.0-11.0); Monocytes % 6.7; Neutrophils % 56.8; RBC 4.74 m/cumm (4.50-6.00); RBC Distribution Width 24.2 % (11.8-14.1); White Blood Cell Count 6.23 k/cumm (4.4-10.8)
[2018-10-29 20:54] LABS: Diff Comment RBC Morph Reviewed; Microcytosis 2+; Platelet Count 90 x1000/uL (130-400)
[2018-10-29 20:56] LABS: ALT 64 U/L (12-78); AST 108 U/L (15-37); Albumin 3.5 g/dL (3.4-5.0); Alkaline Phosphatase 140 U/L (46-116); Anion Gap 9.5 mmol/L (3-11); BUN 4 mg/dL (7-18); Bilirubin, Total 0.7 mg/dL (0.2-1.0); CO2 27.5 mmol/L (21.0-32.0); CREATININE 0.75 mg/dL (0.70-1.30); Calcium 8.3 mg/dL (8.5-10.1); Chloride 104 mmol/L (98-107); ETHANOL BLOOD 276.2 mg/dL (<3); Glucose 103 mg/dL (70-100); Magnesium 1.7 mg/dL (1.8-2.4); Potassium 3.4 mmol/L (3.5-5.1); Sodium 141 mmol/L (136-145); Total Protein 7.1 g/dL (6.4-8.2)
[2018-10-29 20:57] LABS: Troponin I < 0.05 ng/mL (0.00-0.06)
[2018-10-29 21:05] LABS: INR 1.3 (0.9-1.1); PTT Activated 25.6 sec (21.0-31.4); Prothrombin Time 13.2 sec (9.3-11.0)
--- NOTE | 2018-10-29 21:11 | DI.VRAD_ITS ---
EXAM: CT Head Without Contrast EXAM DATE/TIME: 10/29/2018 7:37 PM CLINICAL HISTORY: 58 years old, male; Injury or trauma; Initial encounter; Blunt trauma (contusions or hematomas); Patient HX: Fall in home, intoxication TECHNIQUE: Imaging protocol: Axial computed tomography images of the head without contrast. Coronal and sagittal reformatted images were created and reviewed. COMPARISON: CT HEAD WITHOUT CONTRAST 09/23/2016 8:54 PM FINDINGS: Brain: Global cerebral atrophy is consistent with patient's age. Decreased attenuation within the white matter tracts of both cerebral hemispheres is nonspecific but typically seen with small vessel disease/chronic white matter ischemic changes of aging. No intracranial hemorrhage or mass effect. Ventricles: Unremarkable. No ventriculomegaly. Bones/joints: Unremarkable. No acute fracture. Sinuses: Visualized sinuses are unremarkable. No fluid levels. Mastoid air cells: Visualized mastoid air cells are well aerated. No mastoid effusion. Soft tissues: Unremarkable. IMPRESSION: No acute abnormality. EXAM: CT Cervical Spine Without Contrast EXAM DATE/TIME: 10/29/2018 7:37 PM CLINICAL HISTORY: 58 years old, male; Injury or trauma; Initial encounter; Blunt trauma (contusions or hematomas); Patient HX: Fall in home, intoxication TECHNIQUE: Imaging protocol: Axial computed tomography images of the cervical spine without contrast. Coronal and sagittal reformatted images were created and reviewed. COMPARISON: CT HEAD WITHOUT CONTRAST 09/23/2016 8:54 PM FINDINGS: Limitations: This examination is slightly suboptimal secondary to patient motion. Vertebrae: Postsurgical changes throughout the cervical spine. No acute fracture. Minimal anterolisthesis of C2, likely degenerative. Discs/Spinal canal/Neural foramina: Degenerative disc disease and facet arthrosis throughout the cervical spine. Soft tissues: Unremarkable. Lungs: Lung apices are clear. Other findings: No instrumentation failure are identified. IMPRESSION: No acute fracture. Dictated and Authenticated by: Nate Sam MD. Ordering:SHERYL Maxwell MD
--- NOTE | 2018-10-29 21:23 | DI.VRAD_ITS ---
EXAM: CT Chest Without Contrast EXAM DATE/TIME: 10/29/2018 7:37 PM CLINICAL HISTORY: 58 years old, male; Injury or trauma; Initial encounter; Generalized; Blunt trauma (contusions or hematomas); Patient HX: Fall at home, intoxication TECHNIQUE: Imaging protocol: Axial computed tomography images of the chest without intravenous contrast. Coronal and sagittal reformatted images were created and reviewed. COMPARISON: CT ABD PELVIS WO CONTRAST 11/17/2016 2:28 PM FINDINGS: Lungs: Unremarkable. No consolidation. No masses. Pleural space: No pleural effusion or pneumothorax. Heart: Coronary atherosclerosis. No cardiomegaly or pericardial effusion. Mediastinum: No mediastinal hematoma. Unremarkable pulmonary cali. Aorta: Atherosclerosis of the thoracic aorta without aneurysm. Lymph nodes: Unremarkable. No enlarged lymph nodes. Bones/joints: Minimal left posterior subpleural thickening, consistent with hemorrhage associated with acute rib fractures. Nondisplaced fractures of the posterior aspects of the left fourth and fifth ribs. Postoperative changes within the lower cervical and upper thoracic spine with bilateral posterior renard and screw instrumentation. Degenerative spondylosis throughout the thoracic spine. No acute thoracic vertebral fracture. Soft tissues: Unremarkable. IMPRESSION: Acute fractures of the left fourth and fifth ribs with mild subpleural hemorrhage. EXAM: CT Abdomen and Pelvis Without Contrast EXAM DATE/TIME: 10/29/2018 7:37 PM CLINICAL HISTORY: 58 years old, male; Injury or trauma; Initial encounter; Generalized; Blunt trauma (contusions or hematomas); Patient HX: Fall at home, intoxication TECHNIQUE: Imaging protocol: Axial computed tomography images of the abdomen and pelvis without contrast. Coronal and sagittal reformatted images were created and reviewed. COMPARISON: CT ABD PELVIS WO CONTRAST 11/17/2016 2:28 PM FINDINGS: Liver: Hepatic cirrhosis. No focal hepatic lesion. Gallbladder and bile ducts: Normal. No calcified stones. No ductal dilation. Pancreas: Unremarkable. No ductal dilation. Spleen: Unremarkable. No splenomegaly. Adrenals: Normal. No mass. Kidneys and ureters: Unremarkable. No stones. No hydronephrosis. Stomach and bowel: Unremarkable. No obstruction. No mucosal thickening. Appendix: No evidence of appendicitis. Intraperitoneal space: No free air. No significant fluid collection. Vasculature: Severe atherosclerosis of the abdominal aorta and iliac arteries. No aneurysm. Lymph nodes: No enlarged lymph nodes. Bladder: Distended urinary bladder. Reproductive: Unremarkable as visualized. Bones/joints: Degenerative spondylosis of the lumbar spine. No acute fracture. Soft tissues: Unremarkable. IMPRESSION: No acute abdominopelvic abnormality. Dictated and Authenticated by: Nate Sam MD. Ordering:SHERYL Maxwell MD
[2018-10-29 21:47] LABS: Bilirubin Negative (Negative); Blood Negative (Negative); Clarity Clear (Clear); Glucose Negative (Negative); Ketones Negative (Negative); Leukocyte Esterase Trace (Negative); Nitrite Negative (Negative); Specific Gravity <= 1.005 (1.005-1.025); Urobilinogen 0.2 EU/dL (Up TO 0.2)
[2018-10-29 21:56] LABS: Bacteria Few HPF (Negative); C & S Indicated? Yes; Casts Negative LPF (Negative); Crystals Negative HPF (Negative); Epithelial Cells Negative HPF (Negative); Mucus Negative (Negative); Other Cells Negative (Negative); RBC Negative (0-2); WBC 0-2 HPF (0-5)
[2018-10-29 22:05] VITALS: BP 130/85; PULSE 101; RESP 22; TEMP 36.4; O2SAT 97
[2018-10-29] MEDS: LORazepam 1 MG TAB PO (22:41)
[2018-10-30] MEDS: Magnesium Oxide 400 MG TAB PO (08:35)
[2018-10-30] MEDS: Folic Acid 1 MG TAB PO (08:35)
[2018-10-30] MEDS: Lactulose 20 GM/30 ML CUP 45 GM PO (08:35)
[2018-10-30] MEDS: Furosemide 20 MG TAB PO (08:35)
[2018-10-30] MEDS: Losartan 25 MG TAB PO (08:35)
[2018-10-30] MEDS: Potassium Chloride 20 MEQ TABCR PO (08:36)
[2018-10-30] MEDS: Multivitamin TAB 1 TAB PO (08:36)
[2018-10-30] MEDS: Thiamine 100 MG TAB PO (08:36)
[2018-10-30] MEDS: Spironolactone 50 MG TAB PO (08:36)
--- NOTE | 2018-10-30 09:47 | PDOC.ERCMPRO ---
Care Management Progress Note Jackson presented to the ER last night and per chart review, was belligerent and intoxicated. He was held awaiting sober medical evaluation and CPSO was ordered for safety. Jackson is well known to [facility]. He has had eight visits in the last year, though five of those were in June of 2018, and he has not presented since 06/27/18. CM consult requested. Jackson reports he plans on returning home. He reports having an electric w/c in the home when asked if he is able to walk. He was sitting in results waiting room in a W/C when CM met with him. His right leg is shaking consistently. He has a bag with his belongings and reports he is returning to his own home where he resides in [place], [place] alone. When asked if he is being discharged he reports he is. CM conferred with staff who report the plan is not for Jackson to be discharged. When presented with this information, Jackson states he would like to return to his room. He reports he needs to go to the bathroom; RN enters room to assist Jackson. CM requested ED Cari Winston to [employer]. CM will continue to follow. CM directed Jackson and Cari that if Jackson is adamant about discharging home, it would be an AMA status departure of which Jackson would coordinate his own return home. Recovery Coaches, Maris and Abiel met with Jackson in the ER. Abiel agreed to transport Jackson home at his request. CM reviewed case concerns including physical functioning and wounds with Maris who reported the coaches would continue to follow Jackson for a minimum period of ten days. CM notified Dr. Wiggins.
--- NOTE | 2018-10-30 17:00 | NUR.NOTE ---
pt has been on the comode multiple times this am with watery, loose stools. incontinent of stool several times. has been in a w/c working his way around er and then into lobby. demands attention immediately. wants to go home, is impatient waiting for care management and for the MD, talking to the public works supervisor.Nursing Note:
== END 2018-10-30 11:07 | disposition left against medical advice (07) ==
PROVIDERS: Physician Assistant; Emergency Provider Student in an Organized Health Care Education/Training Program; PCP Family Medicine
DX: S22.41XA Multiple fractures of ribs, right side, initial encounter for closed fracture (principal); F10.230 Alcohol dependence with withdrawal, uncomplicated; N39.0 Urinary tract infection, site not specified; I10 Essential (primary) hypertension; E11.9 Type 2 diabetes mellitus without complications; W01.190A Fall on same level from slipping, tripping and stumbling with subsequent striking against furniture, initial encounter; Z79.4 Long term (current) use of insulin
CPT/HCPCS: 36415; 71250; 80053; 99285; 70450; 72125; 74176; 80320; 81003; 81015; 83735; 84484; 85025; 85610; 85730; 87086; 99284; L0172

== ENCOUNTER 2018-11-04 22:30 | Observation (INO) | payer MEDICAID, SELFPAY ==
--- NOTE | 2018-11-04 00:30 | DI.CT_ITS ---
SYMPTOM/DIAGNOSIS: FALL CT HEAD: Noncontrast examination was performed. There is mild prominence of the ventricles and sulci consistent with the patient's age. Areas of decreased attenuation are seen in the white matter most consistent with small vessel ischemic disease. No acute intracranial hemorrhage, midline shift or mass effect is identified. The visualized paranasal sinuses are clear as are the mastoid air cells. The calvarium is intact. IMPRESSION: No acute intracranial process. CT MAXILLO FACIAL: Routine examination was performed. Sagittal and coronal reformatted images were evaluated on the Siemens work station. There is no evidence of a facial fracture. The orbits and retro-orbital soft tissues are unremarkable. The visualized paranasal sinuses are clear. The ostiomeatal complexes are unremarkable. IMPRESSION: No acute facial fracture. CT CERVICAL SPINE: Multiple contiguous axial images of the cervical spine were obtained. Sagittal and coronal reformatted images were evaluated on the Siemens work station. The patient is status post C2 through C6 laminectomies. Spinal rods area seen extending from C2 through T3. No acute fractures or subluxations are seen in the cervical spine. The orthopaedic hardware appears intact. Multi-level degenerative changes are seen throughout the cervical spine. IMPRESSION: No acute fractures or subluxations in the cervical spine.
--- NOTE | 2018-11-04 00:30 | DI.CT_ITS ---
SYMPTOMS/DIAGNOSIS: TRAUMA, FALL CT SCAN OF THE CHEST, ABDOMEN AND PELVIS: CT scan of the chest, abdomen and pelvis was performed following the uneventful administration of intravenous contrast material. Comparison is 10/29/18. There is patient motion artifact which does cause image degradation. CT SCAN OF THE ABDOMEN AND PELVIS: The liver has a lobulated appearance with an enlarged left lobe suggesting hepatic cirrhosis. No hepatic mass or laceration is seen. The portal, superior mesenteric and splenic veins are patent. The gallbladder is negative. There is no biliary ductal dilatation. The pancreas, spleen and adrenal glands are unremarkable. The kidneys show normal and symmetric enhancement. No evidence of a solid renal mass or obstruction. The urinary bladder is intact. The reproductive organs are unremarkable. There is atherosclerosis of the abdominal aorta but no aneurysmal dilatation. No significant abdominal or pelvic adenopathy, ascites or pneumoperitoneum is present. There is diverticulosis of the colon but no evidence of acute diverticulitis. There is a redundant sigmoid colon present. The remainder of the bowel shows no evidence of obstruction or inflammation. No findings are seen to suggest an acute appendicitis. Moderately severe degenerative changes are seen in the spine. IMPRESSION: No acute abdominal or pelvic organ injury. No acute fracture is seen. CT SCAN OF THE CHEST: There is atherosclerosis of the thoracic aorta but no aneurysmal dilatation is seen. The heart size is at the upper limits of normal in size. No significant pericardial effusion is present. Coronary artery calcifications are seen. No significant thoracic adenopathy or pleural effusion is present. No focal consolidating infiltrates are seen in the lungs. The tracheobronchial tree is unremarkable. No pneumothorax is seen. There are again seen minimally displaced fractures involving the posterior aspect of the left fourth and fifth ribs. This was present on the examination from 10/29/18. There is patient motion artifact present. No definite acute displaced fractures are appreciated. There is patient motion artifact present which does appear to involve the sternum. IMPRESSION: Stable left rib fractures. No acute abnormality.
[2018-11-04 22:43] VITALS: BP 105/69; PULSE 96; RESP 18; TEMP 36.8; O2SAT 99
--- NOTE | 2018-11-04 23:13 | ED.GENADUL_ITS ---
Discharge Plan Disposition Patient Disposition: [facility] INPATIENT Condition: Stable Discharge Details Chief Complaint: Trauma Clinical Impression: Chronic neck pain, Closed rib fracture, Acute hypokalemia, Adult failure to thrive Admit Date/Time: 11/05/18 06:34 Admit Provider: Ranjeet Paula Attending Provider: Ranjeet Paula Primary Care Provider: Sushil Figueroa ED Provider: Blue Wiggins Discharge Data Discharge Date/Time-TO BE ENTERED AT DEPARTURE: 11/05/18 06:40 Medical Decision Making <Breezy Alanis NP - Last Filed: 11/07/18 18:59> Patient presenting to the emergency department via EMS for chief complaint of head injury. Patient states he is drinking this evening and throughout the day and fell hitting his head on a coffee table. Patient states headache but denies any other symptoms at this time. Patient was collared by EMS per trauma protocol. Physical exam shows bilateral periorbital ecchymosis, intoxicated patient, and some herman blood in the right ear canal with no TM rupture, difuse non focal subjective neck tenderness, and no other trauma noted. Patient has no other definitive focal findings on exam but given that he is intoxicated and there is concern for significant trauma CT imaging of the head, cervical spine, facial bones, chest abdomen pelvis was ordered. <Blue Wiggins, - Last Filed: 11/05/18 02:09> The case was signed out to me by my colleague Breezy Alanis pending CT imaging results. Laboratory work-up was relatively benign, potassium was low at 2.8 patient was given IV potassium by Xander Alanis. CT results have returned, no acute process in the head neck or face. CT scan of the chest abdomen and pelvis does demonstrate evidence of chronic unchanged subacute fractures of the sternum and ribs, Unchanged subacute nondisplaced fractures left posterior fourth through sixth ribs. Likely subacute fracture of the sternum. Tenderness and pain is under control. Patient will be given a Lidoderm patch for his neck. The patient's last visit here he did have a sniff set up form for rehabilitation secondary to his chronic weakness, and lack of good care at home, however he left AGAINST MEDICAL ADVICE. I did discuss this again with the patient, at this time he feels that he is not safe at home and would like to be admitted to a facility. We will keep the patient here overnight, for case ma nagement evaluation in the morning for potential admission to a SNF. I discussed the case with Dr. Paula, he agrees with the assessment and plan. I have extensively reviewed the treatment plan with the patient. I have addressed all patient concerns at this time. I have also discussed the plan with the admitting physician and they agree with the current assessment and plan and have agreed to assume responsibility for the patient. All parties demonstrate verbal understanding and agreement with our assessment and plan at this time. He has asked that I place bridging orders at this time. FINDINGS: Orbits: No acute intraorbital abnormality. Globes are unremarkable. Sinuses: Normal. No air-fluid levels. Bones/joints: No acute fracture. Vasculature: Vascular calcifications are present. Soft tissues: Unremarkable. IMPRESSION: No acute osseous abnormality involving face. EXAM: CT Cervical Spine Without Contrast EXAM DATE/TIME: 11/04/2018 11:54 PM CLINICAL HISTORY: 58 years old, male; Injury or trauma; Fall; Initial encounter; Blunt trauma (contusions or hematomas); Consciousness not specified TECHNIQUE: Imaging protocol: Computed tomography images of the cervical spine without contrast. Coronal and sagittal reformatted images were created and reviewed. Radiation optimization: All CT scans at this facility use at least one of these dose optimization techniques: automated exposure control; mA and/or kV adjustment per patient size (includes targeted exams where dose is matched to clinical indication); or iterative reconstruction. COMPARISON: CT HEAD NECK FACIAL WO 08/19/2016 8:33 PM FINDINGS: Vertebrae: Vertebral bodies demonstrate normal height throughout the cervical spine. No acute fractures are seen. Postoperative changes from C2-C6 laminectomies and posterior fusion spanning the C2-T2 levels noted. There is no evidence of hardware fracture, loosening or migration. Mild degenerative anterolisthesis of C2 on C3 again noted, unchanged. Discs/Spinal canal/Neural foramina: Multilevel disc space narrowing is present throughout the cervical spine, with associated endplate sclerosis and marginal disc osteophyte complexes. Uncovertebral facet hypertrophy is present diffusely, with likely associated bony neuroforaminal encroachment on the right at C2-3 and bilaterally at C3-4 and C6-7. Soft tissues: Unremarkable. Lungs: Lung apices are clear. Vasculature: Vascular calcifications are present. IMPRESSION: 1. No acute osseous abnormality involving the cervical spine. 2. Chronic degenerative and postsurgical findings as above, unchanged. Dictated and Authenticated by: Rj Zurita MD. Ordering:JANNETTE Tijerina MD FINDINGS: Lungs: Unremarkable. No consolidation. No masses. Pleural space: Unremarkable. No pneumothorax. No pleural effusion. Heart: Unremarkable. No cardiomegaly. No pericardial effusion. Aorta: No aortic aneurysm. Great vessels off aortic arch: Extensive atherosclerosis of the aorta, great vessels, coronary arteries. Lymph nodes: Unremarkable. No enlarged lymph nodes. Bones/joints: Extensive postsurgical change of the cervical and proximal thoracic spine. Sequela from prior rib fractures right lateral eighth and ninth ribs. Unchanged subacute nondisplaced fractures left posterior fourth through sixth ribs. Likely subacute fracture of the sternum. Soft tissues: Unremarkable. IMPRESSION: Unchanged subacute nondisplaced fractures left posterior fourth through sixth ribs. Likely subacute fracture of the sternum. EXAM: CT Abdomen and Pelvis With Contrast EXAM DATE/TIME: 11/04/2018 11:06 PM CLINICAL HISTORY: 58 years old, male; Injury or trauma; Fall; Initial encounter; Blunt; Generalized TECHNIQUE: Imaging protocol: Axial computed tomography images of the abdomen and pelvis with intravenous contrast. Coronal and sagittal reformatted images were created and reviewed. Radiation optimization: All CT scans at this facility use at least one of these dose optimization techniques: automated exposure control; mA and/or kV adjustment per patient size (includes targeted exams where dose is matched to clinical indication); or iterative reconstruction. Contrast material: [id number]; Contrast volume: 100 ml; Contrast route: IV; COMPARISON: CT CHEST/ABD/PEL W 10/29/2018 8:50 PM FINDINGS: Liver: Cirrhotic liver. Gallbladder and bile ducts: Normal. No calcified stones. No ductal dilation. Pancreas: Normal. No ductal dilation. Spleen: Normal. No splenomegaly. Adrenals: Normal. No mass. Kidneys and ureters: Normal. No hydronephrosis. Stomach and bowel: Mild diverticulosis. Appendix: No evidence of appendicitis. Intraperitoneal space: Normal. No free air. No significant fluid collection. Vasculature: Extensive vascular calcifications of the abdominal aorta and its branches. Lymph nodes: Normal. No enlarged lymph nodes. Bladder: Bladder is significantly distended. Reproductive: Subcentimeter prostate calcifications are present. Bones/joints: Extensive degenerative change of the lumbar spine. Soft tissues: Unremarkable. IMPRESSION: No acute abnormality. Dictated and Authenticated by: Mitra Morocho MD. Ordering:JANNETTE Tijerina MD HPI <Breezy Alanis, GALLERY OR MUSEUM CURATOR - Last Filed: 11/07/18 18:59> General Mode of arrival: EMS . Date/Time Provider Initiated Documentation: 11/04/18 22:56 . Limitations to Documentation: altered mental status . Information obtained by: patient, EMS and old records reviewed . History of Present Illness 58 year old M presents to the emergency department with the chief complaint of Head injury, described as moderate, with intensity rated at 8. Quality is described as aching, and is localized to the head. Patient started experiencing this hour(s) (2) and it has been constant. Patient notes no other symptoms.. Related Data Home Medications Medication Instructions Recorded Confirmed epinephrine 0.3 mg IM DIRECTED PRN 01/15/13 10/29/18 mirtazapine 7.5 mg PO HS 11/21/15 10/29/18 duloxetine [Cymbalta] 60 mg PO DAILY 04/06/16 10/29/18 Levemir U-100 Insulin 22 unit SQ DAILY 08/19/16 10/29/18 atorvastatin [Lipitor] 40 mg PO QPM 08/19/16 10/29/18 lactulose [Constulose] 45 gm PO TID 08/19/16 10/29/18 gabapentin 800 mg PO TID 11/19/16 10/29/18 insulin lispro [Humalog KwikPen 8 unit SQ AC 11/19/16 10/29/18 Insulin] magnesium oxide 400 mg PO BID 11/19/16 10/29/18 multivitamin 1 ea PO DAILY 11/19/16 10/29/18 thiamine mononitrate (vit B1) 100 mg PO DAILY 11/19/16 10/29/18 [Vitamin B-1 (mononitrate)] aspirin [Aspir-81] 81 mg PO DAILY tab-cap 03/15/17 10/29/18 furosemide 20 mg PO BID tab-cap 03/15/17 10/29/18 oxazepam 10 mg PO BID 03/15/17 10/29/18 spironolactone 50 mg PO BID tab-cap 03/15/17 10/29/18 citalopram 40 mg tablet 40 mg PO DAILY 06/08/18 10/29/18 losartan 25 mg tablet 25 mg PO DAILY 06/08/18 10/29/18 trazodone 150 mg tablet 150 mg PO DAILY 06/08/18 10/29/18 lidocaine [Lidoderm] 1 patch TOPICAL Q24H #4 patch 10/30/18 Previous Rx's Medication Instructions Recorded lidocaine [Lidoderm] 1 patch TOPICAL Q24H #4 patch 10/30/18 Allergies Allergy/AdvReac Type Severity Reaction Status Date / Time venom-honey bee Allergy Severe signs of Unverified 11/05/18 01:05 stroke pregabalin [From Lyrica] Allergy Mild Unverified 11/05/18 01:05 varenicline tartrate AdvReac Unknown Nausea Unverified 11/05/18 01:05 [From Chantix] General Stated Complaint: GenMedical SCOT: 3 Review of Systems <Breezy Alanis NP - Last Filed: 11/07/18 18:59> Constitutional Denies fever(s) and Reports frequent falls Eyes Denies blurry vision ENT Reports dizziness and Denies epistaxis Cardiovascular Denies chest pain and Denies dyspnea Respiratory Denies dyspnea Gastrointestinal Denies abdominal pain, Denies nausea and Denies vomiting Neurologic Reports as per HPI, Reports dizziness, Reports frequent falls, Reports focal weakness and Reports paresthesias (Hands and feet) PFSH <Breezy Alanis NP - Last Filed: 11/07/18 18:59> Medical History (Updated 11/05/18 @ 06:22 by Ranjeet Paula MD) Acute alcohol intoxication (Inactive) Alcohol dependence Arthritis Bilateral leg edema Chronic pain Cirrhosis of liver Depression Diabetes mellitus, type II Diabetic peripheral neuropathy Encephalopathy, hepatic GERD (gastroesophageal reflux disease) Hepatitis C Hyperlipidemia Hypertension Knee pain, right Opioid abuse TIA (transient ischemic attack) Ulnar neuropathy Surgical History H/O cervical spine surgery (Acute) Hx of total knee arthroplasty (Acute) Social History Smoking/Tobacco Use Status: Current every day Tobacco Type: e-cigarettes Alcohol Intake: current Alcohol Intake frequency: a few times a week Drug use: Never Substance use type: marijuana Housing: apartment Number of Children: 3 What type of physical activity do you participate in: walking Do you feel safe in your relationship?: Yes Exam <Breezy Alanis NP - Last Filed: 11/07/18 18:59> Const General: cooperative, comfortable and intoxicated appearing Orientation: alert and awake Limitations: altered mental status HENAR Head: no palpable skull fracture, abrasion left frontal, no Hernandez's sign, no lacerations, no palpable skull fracture, raccoon eyes and periorbital ecchymosis Ears: external ears normal and EAC abnormal otic discharge (Small) bloody on the right General nose exam: external nose normal and no epistaxis Face and sinus: normal facial exam Mouth: oral mucosae normal, lip normal and tongue normal Throat: posterior oropharynx normal, tonsils normal and uvula midline Neck Neck: normal visual inspection, full ROM, trachea midline, supple and no anterior neck swelling Chest Chest: normal inspection of the chest Resp Effort & Inspection: normal respiratory effort and able to speak in complete sentences Auscultation: clear to auscultation bilaterally Cardio Jugular venous pressure: no JVD Palpation: normal PMI Rate: regular rate Rhythm: regular rhythm Heart Sounds: S1 normal, S2 normal, no click, no gallops, no murmurs and no rubs Pulses: radial pulses present bilaterally 2+ GI Inspection: normal to inspection Palpation: soft, no aortic enlargement, no pulsatile masses and tender (Diffuse without focal findings) Auscultation: normal bowel sounds Skin General skin exam: no rashes or lesions noted Neuro General: alert, awake, moves all extremities, normal light touch, pain and propioception and no focal motor deficits Motor: muscle tone normal throughout Course <Breezy Alanis NP - Last Filed: 11/07/18 18:59> Vital Signs Temperature 36.8 C 11/04/18 22:43 Pulse 96 H 11/04/18 22:43 Respiratory Rate 18 11/04/18 22:43 Blood Pressure 105/69 11/04/18 22:43 Pulse Oximetry 99 11/04/18 22:43 Temperature 36.8 C 11/04/18 22:43 Temperature Source Temporal Artery Scan 11/04/18 22:43 Pulse 96 H 11/04/18 22:43 Respiratory Rate 18 11/04/18 22:43 Respiratory Effort 11/04/18 22:43 Blood Pressure 105/69 11/04/18 22:43 Blood Pressure Position Supine 11/04/18 22:43 Pulse Oximetry 99 11/04/18 22:43 Oxygen Delivery Method Room Air 11/04/18 22:43 Oxygen Flow Rate 0 11/04/18 22:43 Sign Out <Breezy Alanis NP - Last Filed: 11/07/18 18:59> Sign Out Data: Sign Out Comment: Trauma patient signed out to Dr. Wiggins pending full review of labs and CT imaging. Of note patient does have low potassium and IV potassium was ordered. Last updated by Breezy Alanis NP at 11/04/18 23:55
[2018-11-04 23:23] LABS: Abs Immature Grans 0.01 k/cumm (0.0-0.09); Absolute Basophil Count 0.01 k/cumm (0.0-0.2); Absolute Eosinophil Count 0.03 k/cumm (0.0-0.7); Absolute Lymphocyte Count 1.15 k/cumm (1.2-3.4); Absolute Monocyte Count 0.32 k/cumm (0.11-0.7); Absolute Neutrophil Count 1.73 k/cumm (1.2-6.7); Basophils % 0.3; Eosinophils % 0.9; HCT 32.2 % (40.0-50.0); HGB 10.6 g/dL (13.5-17.5); Immature Grans % 0.3; Lymphocytes % 35.4; Mean Corp. HGB Concentration 32.9 g/dL (32.0-36.0); Mean Corpuscular Hemoglobin 23.8 pg (27.0-33.0); Mean Corpuscular Volume 72.4 fL (80-95); Mean Platelet Volume 10.1 fL (8.0-11.0); Monocytes % 9.8; Neutrophils % 53.3; RBC 4.45 m/cumm (4.50-6.00); RBC Distribution Width 25.6 % (11.8-14.1); White Blood Cell Count 3.25 k/cumm (4.4-10.8)
[2018-11-04 23:39] LABS: Hypochromasia 2+; Platelet Count 66 x1000/uL (130-400)
[2018-11-04 23:40] LABS: Anisocytosis 3+; Microcytosis 3+; Polychromasia Present
[2018-11-04 23:47] LABS: ALT 67 U/L (12-78); AST 104 U/L (15-37); Albumin 3.2 g/dL (3.4-5.0); Alkaline Phosphatase 155 U/L (46-116); Anion Gap 10.5 mmol/L (3-11); BUN 4 mg/dL (7-18); Bilirubin, Total 0.5 mg/dL (0.2-1.0); CO2 27.5 mmol/L (21.0-32.0); CREATININE 0.69 mg/dL (0.70-1.30); Calcium 8.2 mg/dL (8.5-10.1); Chloride 98 mmol/L (98-107); Glucose 126 mg/dL (70-100); Sodium 136 mmol/L (136-145); Total Protein 6.8 g/dL (6.4-8.2)
[2018-11-04 23:48] LABS: ETHANOL BLOOD 291.1 mg/dL (<3)
[2018-11-04 23:49] LABS: Potassium 2.8 mmol/L (3.5-5.1)
[2018-11-05] MEDS: Omnipaque 350 MG/ML 100 ML BTL IJ (00:41)
--- NOTE | 2018-11-05 01:03 | DI.VRAD_ITS ---
EXAM: CT Head Without Contrast EXAM DATE/TIME: 11/04/2018 11:54 PM CLINICAL HISTORY: 58 years old, male; Injury or trauma; Fall; Initial encounter; Blunt trauma (contusions or hematomas); Consciousness not specified TECHNIQUE: Imaging protocol: Computed tomography images of the head without contrast. Coronal and sagittal reformatted images were created and reviewed. Radiation optimization: All CT scans at this facility use at least one of these dose optimization techniques: automated exposure control; mA and/or kV adjustment per patient size (includes targeted exams where dose is matched to clinical indication); or iterative reconstruction. COMPARISON: CT HEAD NECK FACIAL WO 08/19/2016 8:33 PM FINDINGS: Brain: There is no evidence of hemorrhage or mass effect. Scattered areas of white matter hypoattenuation most likely represent gliosis in the setting of chronic microvascular ischemia. Small focus of encephalomalacia involving the undersurface of the anterior right frontal lobe, possibly sequela of prior trauma. Reyes-white matter differentiation is otherwise preserved. There is mild cerebral volume loss. Ventricles: No ventriculomegaly. Mildly prominent CSF spaces due to brain parenchymal volume loss. Bones/joints: Unremarkable. No acute fracture. Sinuses: Visualized sinuses are unremarkable. No fluid levels. Mastoid air cells: Visualized mastoid air cells are well aerated. No mastoid effusion. Soft tissues: Unremarkable. Vasculature: Vascular calcifications are present. IMPRESSION: No acute intracranial abnormality. EXAM: CT Maxillofacial Without Contrast EXAM DATE/TIME: 11/04/2018 11:54 PM CLINICAL HISTORY: 58 years old, male; Injury or trauma; Fall; Initial encounter; Blunt trauma (contusions or hematomas); Consciousness not specified TECHNIQUE: Imaging protocol: Computed tomography images of the face without contrast. Coronal and sagittal reformatted images were created and reviewed. Radiation optimization: All CT scans at this facility use at least one of these dose optimization techniques: automated exposure control; mA and/or kV adjustment per patient size (includes targeted exams where dose is matched to clinical indication); or iterative reconstruction. COMPARISON: CT HEAD NECK FACIAL WO 08/19/2016 8:33 PM FINDINGS: Orbits: No acute intraorbital abnormality. Globes are unremarkable. Sinuses: Normal. No air-fluid levels. Bones/joints: No acute fracture. Vasculature: Vascular calcifications are present. Soft tissues: Unremarkable. IMPRESSION: No acute osseous abnormality involving face. EXAM: CT Cervical Spine Without Contrast EXAM DATE/TIME: 11/04/2018 11:54 PM CLINICAL HISTORY: 58 years old, male; Injury or trauma; Fall; Initial encounter; Blunt trauma (contusions or hematomas); Consciousness not specified TECHNIQUE: Imaging protocol: Computed tomography images of the cervical spine without contrast. Coronal and sagittal reformatted images were created and reviewed. Radiation optimization: All CT scans at this facility use at least one of these dose optimization techniques: automated exposure control; mA and/or kV adjustment per patient size (includes targeted exams where dose is matched to clinical indication); or iterative reconstruction. COMPARISON: CT HEAD NECK FACIAL WO 08/19/2016 8:33 PM FINDINGS: Vertebrae: Vertebral bodies demonstrate normal height throughout the cervical spine. No acute fractures are seen. Postoperative changes from C2-C6 laminectomies and posterior fusion spanning the C2-T2 levels noted. There is no evidence of hardware fracture, loosening or migration. Mild degenerative anterolisthesis of C2 on C3 again noted, unchanged. Discs/Spinal canal/Neural foramina: Multilevel disc space narrowing is present throughout the cervical spine, with associated endplate sclerosis and marginal disc osteophyte complexes. Uncovertebral facet hypertrophy is present diffusely, with likely associated bony neuroforaminal encroachment on the right at C2-3 and bilaterally at C3-4 and C6-7. Soft tissues: Unremarkable. Lungs: Lung apices are clear. Vasculature: Vascular calcifications are present. IMPRESSION: 1. No acute osseous abnormality involving the cervical spine. 2. Chronic degenerative and postsurgical findings as above, unchanged. Dictated and Authenticated by: Rj Zurita MD. Ordering:JANNETTE Tijerina MD
[2018-11-05] MEDS: POTASSIUM CHLORIDE 10 MEQ/100 ML BAG 100 MEQ IVPB (01:05)
--- NOTE | 2018-11-05 01:08 | DI.VRAD_ITS ---
EXAM: CT Chest With Contrast EXAM DATE/TIME: 11/04/2018 11:06 PM CLINICAL HISTORY: 58 years old, male; Injury or trauma; Fall; Initial encounter; Blunt; Generalized TECHNIQUE: Imaging protocol: Axial computed tomography images of the chest with intravenous contrast. Coronal and sagittal reformatted images were created and reviewed. Radiation optimization: All CT scans at this facility use at least one of these dose optimization techniques: automated exposure control; mA and/or kV adjustment per patient size (includes targeted exams where dose is matched to clinical indication); or iterative reconstruction. Contrast material: [id number]; Contrast volume: 100 ml; Contrast route: IV; COMPARISON: CT CHEST/ABD/PEL W 10/29/2018 8:50 PM FINDINGS: Lungs: Unremarkable. No consolidation. No masses. Pleural space: Unremarkable. No pneumothorax. No pleural effusion. Heart: Unremarkable. No cardiomegaly. No pericardial effusion. Aorta: No aortic aneurysm. Great vessels off aortic arch: Extensive atherosclerosis of the aorta, great vessels, coronary arteries. Lymph nodes: Unremarkable. No enlarged lymph nodes. Bones/joints: Extensive postsurgical change of the cervical and proximal thoracic spine. Sequela from prior rib fractures right lateral eighth and ninth ribs. Unchanged subacute nondisplaced fractures left posterior fourth through sixth ribs. Likely subacute fracture of the sternum. Soft tissues: Unremarkable. IMPRESSION: Unchanged subacute nondisplaced fractures left posterior fourth through sixth ribs. Likely subacute fracture of the sternum. EXAM: CT Abdomen and Pelvis With Contrast EXAM DATE/TIME: 11/04/2018 11:06 PM CLINICAL HISTORY: 58 years old, male; Injury or trauma; Fall; Initial encounter; Blunt; Generalized TECHNIQUE: Imaging protocol: Axial computed tomography images of the abdomen and pelvis with intravenous contrast. Coronal and sagittal reformatted images were created and reviewed. Radiation optimization: All CT scans at this facility use at least one of these dose optimization techniques: automated exposure control; mA and/or kV adjustment per patient size (includes targeted exams where dose is matched to clinical indication); or iterative reconstruction. Contrast material: [id number]; Contrast volume: 100 ml; Contrast route: IV; COMPARISON: CT CHEST/ABD/PEL W 10/29/2018 8:50 PM FINDINGS: Liver: Cirrhotic liver. Gallbladder and bile ducts: Normal. No calcified stones. No ductal dilation. Pancreas: Normal. No ductal dilation. Spleen: Normal. No splenomegaly. Adrenals: Normal. No mass. Kidneys and ureters: Normal. No hydronephrosis. Stomach and bowel: Mild diverticulosis. Appendix: No evidence of appendicitis. Intraperitoneal space: Normal. No free air. No significant fluid collection. Vasculature: Extensive vascular calcifications of the abdominal aorta and its branches. Lymph nodes: Normal. No enlarged lymph nodes. Bladder: Bladder is significantly distended. Reproductive: Subcentimeter prostate calcifications are present. Bones/joints: Extensive degenerative change of the lumbar spine. Soft tissues: Unremarkable. IMPRESSION: No acute abnormality. Dictated and Authenticated by: Mitra Morocho MD. Ordering:JANNETTE Tijerina MD
[2018-11-05 03:09] VITALS: BP 124/85; PULSE 90; RESP 18; TEMP 35.8; O2SAT 96
[2018-11-05] MEDS: POTASSIUM CHLORIDE/0.9% NACL 1,000 ML 100 MEQ IV (03:41)
[2018-11-05 03:47] VITALS: RESP 18
[2018-11-05 04:04] VITALS: BP 124/85; PULSE 90; RESP 18; O2SAT 96
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
[2018-11-05 08:00] VITALS: BP 109/77; PULSE 109; RESP 20; TEMP 37.6; O2SAT 95
[2018-11-05] MEDS: Acetaminophen 325 MG TAB 650 MG PO (08:13)
[2018-11-05] MEDS: Oxazepam 10 MG CAP PO (08:13)
--- NOTE | 2018-11-05 12:08 | INITIAL_ITS ---
Care Management Initial Assess REASON FOR HOSPITALIZATION:: Alcohol Intoxication PAST MEDICAL HISTORY/PAST SURGICAL HISTORY:: Medical: Alcohol dependence, Arthritis, Bilateral leg edema, Chronic pain. Cirrhosis of liver, Depression, Diabetes mellitus, type II, Diabetic peripheral neuropathy, Encephalopathy, hepatic GERD (gastroesophageal reflux Disease) Hepatitis C, Hyperlipidemia, Hypertension. Knee pain, right, Opioid abuse, TIA (transient ischemic attack), Ulnar europathy. Surgical History:H/O cervical spine surgery (Acute), Hx of total knee arthroplasty (Acute), PREVIOUS FUNCTIONAL STATUS/SOCIAL/FAMILY SUPPORTS:: Lives alone in [place]. Uses an electric wheel chair to get around. Was connected to recovery coaches, Maris Beebe, during his 10/29/18 EDvisit.during hs CURRENT FUNCTIONAL STATUS:: Lying in bed and demanding that a nurse assist him with dressing so that he can leave. Signed AMA documents. ADVANCE DIRECTIVES:: None on file Has patient been provided with information about the portal?: No Did the patient sign up for the portal?: No CODE STATUS:: Full Code INSURANCE COVERAGE / FINANCIAL ISSUES:: Medicaid CURRENT HOME/COMMUNITY SERVICES/EQUIPMENT:: Electric Wheel Chair PRIMARY CARE PHYSICIAN:: Sushil Figueroa MD POTENTIAL DISCHARGE NEEDS:: Will not accept any assistance. PATIENT/FAMILY EDUCATION NEEDS:: Limitations and the effect his choices are making on his health and overall life. ANTICIPATED BARRIERS TO DISCHARGE:: None as he will not accept any help TRANSPORTATION:: [employer] Wheel [employer] van PLAN:: Return home. Refuses all services. Readmission - Within the Past 30 Days Yes or No: N (7 ED visits and one Admission in the past 5 months. He has already signed out AMA today and states he will just come back to the ED whenever he needs to. States he has no plan to stop drinking and just wants to get home.)
--- NOTE | 2018-11-05 12:49 | PDOC.CMDIS ---
LACE Index Scoring Tool - Questions: Length of Stay (in days): 1 Acuity (Admit via E.D.?): Yes Comorbidities: Diabetes w/o Complication E.D. Visits: 7 - Answers: Total Score: 9 Risk of Readmission: Low Risk Care Management Discharge Reason for Hospitalization: Alcohol Intoxication Discharge Plan: Home. Refused all services. Patient/Family Education Needs: limitations and the ways in which his overall health and life are impacted by the decisions he is making.
== END 2018-11-05 09:51 | disposition left against medical advice (07) ==
LOC: ER 11-05 02:36 → MS 11-05 06:47
PROVIDERS: Nurse Practitioner Family; Admitting Provider General Practice; Emergency Provider Student in an Organized Health Care Education/Training Program; PCP Family Medicine; Visit Provider Internal Medicine
DX: F10.220 Alcohol dependence with intoxication, uncomplicated (principal); Y90.8 Blood alcohol level of 240 mg/100 ml or more; Z53.21 Procedure and treatment not carried out due to patient leaving prior to being seen by health care provider; E87.6 Hypokalemia; S00.83XA Contusion of other part of head, initial encounter; W19.XXXA Unspecified fall, initial encounter; D50.9 Iron deficiency anemia, unspecified; D69.6 Thrombocytopenia, unspecified
CPT/HCPCS: 36415; 74177; 80053; 96365; 96366; 99222; 99285; 70450; 70486; 71260; 72125; 80320; 85025; 99219; 99284; G0378; J3480; J3490

== ENCOUNTER 2019-10-26 11:14 | Emergency (ER) | payer MEDICAID, SELFPAY ==
[2019-10-26 11:07] VITALS: BP 114/70; PULSE 103; RESP 20; TEMP 36.5; O2SAT 96
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
== END 2019-10-26 12:38 | disposition other institution (70) ==
LOC: ER 12:11
PROVIDERS: Emergency Provider Student in an Organized Health Care Education/Training Program; PCP Family Medicine
DX: R45.1 Restlessness and agitation (principal); F10.120 Alcohol abuse with intoxication, uncomplicated; F41.9 Anxiety disorder, unspecified; R45.850 Homicidal ideations; Z53.29 Procedure and treatment not carried out because of patient's decision for other reasons; E11.9 Type 2 diabetes mellitus without complications; Z79.4 Long term (current) use of insulin; I10 Essential (primary) hypertension
CPT/HCPCS: 36416; 80053; 82962; 99285; 80320; 85025; 99284

== ENCOUNTER 2019-10-27 11:48 | Emergency (ER) | payer MEDICAID, SELFPAY ==
[2019-10-27 11:53] VITALS: BP 117/75; PULSE 93; RESP 18; TEMP 37; O2SAT 97
--- NOTE | 2019-10-27 11:54 | DI.CT_ITS ---
EXAM: CT HEAD CERVICAL SPINE WO CLINICAL HISTORY: Fall, injury, EtOH. TECHNIQUE: Imaging Protocol: Axial computed tomography images with coronal and sagittal reformatted images were created and reviewed COMPARISON: CT CT HEAD CERV SPINE FACIAL WO from 11/05/2018 FINDINGS: Head CT: Ventricles and Extra axial spaces: Normal in size and morphology for the patient's age. Hemorrhage: None. Cerebral parenchyma: Mild atrophy. Mild white matter changes consistent with small vessel disease. Midline shift: None. Brainstem/Cerebellum: Normal. Calvarium: Normal. Visualized Paranasal sinuses/Mastoids: Clear. C-spine CT: Rods are again noted related to previous posterior fusion from C 2 through T2. Laminectomy defects a re again noted. Degenerative disc changes are present. No fracture is seen. The hardware appears i ntact. There is no paraspinal hematoma. No pneumothorax seen at the lung apices. IMPRESSION: No acute abnormality. RADIATION DOSE DELIVERED: 1,737.21mGy.cm Total DLP 1,737.21mGy.cm Total DLP DATA REPOSITORY: All CT scans at this facility are submitted to the National Radiology Data Registry (NRDR) Dose Index Registry (DIR) with the [employer] (ACR). RADIATION OPTIMIZATION: All CT scans at this facility use at least one of these dose optimization te chniques: automated exposure control; mA and/or kV adjustment per patient size (includes targeted exa ms where dose is matched to clinical indication); or iterative reconstruction.
--- NOTE | 2019-10-27 12:02 | NUR.NOTE ---
Nursing Note: During triage and assessment, patient became beligerent and augementative. RN and Provider attempted to calm patient with little effect. Patient removed C-Collar and continues to yell at staff.
--- NOTE | 2019-10-27 12:34 | NUR.NOTE ---
Nursing Note: Patient noted to be sleeping comfortably in the stretcher.
--- NOTE | 2019-10-27 12:40 | ED.GENADUL_ITS ---
Discharge Plan Disposition Patient Disposition: HOME Condition: Stable Discharge Details Chief Complaint: HeadInjury Clinical Impression: Fall, Alcohol abuse, Neck pain Primary Care Provider: Sushil Figueroa ED Provider: Flex Gandhi [place] Meds and New Rx's Prescriptions: Continued trazodone 150 mg tablet 150 mg PO DAILY RF: 0 citalopram 40 mg tablet 40 mg PO DAILY RF: 0 losartan 25 mg tablet 25 mg PO DAILY RF: 0 oxazepam 10 MG capsule 10 mg PO BID RF: 0 aspirin [Aspir-81] 81 MG tablet,delayed release (DR/EC) 81 mg PO DAILY RF: 0 furosemide 20 MG tablet 20 mg PO BID RF: 0 spironolactone 50 MG tablet 50 mg PO BID RF: 0 epinephrine 0.3 MG/SYR auto-injector 0.3 mg IM DIRECTED PRNRF: 0 mirtazapine 15 MG tablet 7.5 mg PO HS RF: 0 atorvastatin [Lipitor] 40 MG tablet 40 mg PO QPM RF: 0 lactulose [Constulose] 10 GM/15 ML solution 45 gm PO TID RF: 0 Levemir U-100 Insulin 100 UNIT/ML solution 22 unit SQ DAILY RF: 0 lidocaine [Lidoderm] 1 PATCH patch 1 patch Topical Q24H Qty: 4 RF: 0 duloxetine [Cymbalta] 30 MG capsule,delayed release(DR/EC) 60 mg PO DAILY RF: 0 magnesium oxide 400 MG tablet 400 mg PO BID RF: 0 gabapentin 800 MG tablet 800 mg PO TID RF: 0 multivitamin 1 EACH capsule 1 ea PO DAILY RF: 0 insulin lispro [Humalog KwikPen Insulin] 100 UNIT/ML insulin pen 8 unit SQ AC RF: 0 thiamine mononitrate (vit B1) [Vitamin B-1 (mononitrate)] 100 MG tablet 100 mg PO DAILY RF: 0 Discharge Instructions Instructions: Abuse of Alcohol (ED), Fall Prevention (ED), Neck Pain (ED) Additional Instructions: At this time the CT of your head and neck do not reveal any obvious emergent process. I recommend to stop abusing alcohol. Please watch for new or worsening symptoms and return to the ER for any concerns. [id number] medication as directed for symptomatic control. I recommend you contact your primary care provider later today or tomorrow for prompt outpatient reevaluation. Medical Decision Making 59-year-old gentleman who was actually seen in the ER yesterday presents again today for evaluation after what he reports as a slip and fall while using his walk in the parking lot at [facility]. He did strike his head but denies any LOC or headache. His only concern right now is that of a reoccurring neck injury, reports neck surgery roughly 3 years ago. He denies numbness, tingling, weakness. Patient reports that he would like a sandwich and does not want to wear his c-collar anymore. I explained to him the importance of leaving the c- collar on and he was agreeable. Given we are going to scan his head and neck, will not provide any p.o. intake at this time. It was brought to my attention that the patient has remove the c-collar himself. CT of head and C-spine read by radiology as no acute abnormality. Rods are aligned from C2-T2. Laminectomy deficits are noted. DDD. No fracture is seen. The hardware appears intact. There is no paraspinal hematoma. No pneumothorax at the apices. Head CT no acute abnormality. CT results were discussed with patient. No obvious emergent process was identified and the plan is to discharge the patient. He was witnessed ambulating steadily using his walker. Patient has no additional questions or concerns and will be discharged at this time. Patient is no longer belligerent, cooperative upon discharge HPI General Date/Time Provider Initiated Documentation: 10/27/19 11:54 . Limitations to Documentation: no limitations . Information obtained by: patient . HPI Narrative: This is a 59-year-old gentleman with history of alcohol abuse, TIA, pancreatitis, acquired thrombocytopenia, hyperlipidemia, diabetes, prior neck surgery several years ago, presenting to the ER today via EMS. I was initially told by EMS that he had fallen at home, took a taxi to [facility], and then an ambulance was emily led. Patient reports to me that he was at [facility], slipped in the parking lot, striking his head and injuring his neck. He denies LOC or headache now. He reports he has moderate neck pain but denies any other injury from the fall. His primary concern is that he could have reinjured his neck. Patient was initially answering my questions appropriately but then became very angry screaming at me just bring me to get my fucking x-rays. He does not want to wear his c-collar and tells me that this is very uncomfortable. After redirecting him and de-escalating him he was willing to continue wearing his c- collar. Patient tells me that he has not taken any of his medications in several days. He denies numbness, tingling, weakness in his extremities. Denies nausea or vomiting. He is demanding pain medications. He screams again I should have just gone to [facility], they never make me wait this long. He admits to drinking alcohol this morning. Related Data Home Medications Medication Instructions Recorded Confirmed epinephrine 0.3 mg IM DIRECTED PRN 01/15/13 10/29/18 mirtazapine 7.5 mg PO HS 11/21/15 10/29/18 duloxetine [Cymbalta] 60 mg PO DAILY 04/06/16 10/29/18 Levemir U-100 Insulin 22 unit SQ DAILY 08/19/16 10/29/18 atorvastatin [Lipitor] 40 mg PO QPM 08/19/16 10/29/18 lactulose [Constulose] 45 gm PO TID 08/19/16 10/29/18 gabapentin 800 mg PO TID 11/19/16 10/29/18 insulin lispro [Humalog KwikPen 8 unit SQ AC 11/19/16 10/29/18 Insulin] magnesium oxide 400 mg PO BID 11/19/16 10/29/18 multivitamin 1 ea PO DAILY 11/19/16 10/29/18 thiamine mononitrate (vit B1) 100 mg PO DAILY 11/19/16 10/29/18 [Vitamin B-1 (mononitrate)] aspirin [Aspir-81] 81 mg PO DAILY tab-cap 03/15/17 10/29/18 furosemide 20 mg PO BID tab-cap 03/15/17 10/29/18 oxazepam 10 mg PO BID 03/15/17 10/29/18 spironolactone 50 mg PO BID tab-cap 03/15/17 10/29/18 citalopram 40 mg tablet 40 mg PO DAILY 06/08/18 10/29/18 losartan 25 mg tablet 25 mg PO DAILY 06/08/18 10/29/18 trazodone 150 mg tablet 150 mg PO DAILY 06/08/18 10/29/18 lidocaine [Lidoderm] 1 patch TOPICAL Q24H #4 patch 10/30/18 Previous Rx's Medication Instructions Recorded lidocaine [Lidoderm] 1 patch TOPICAL Q24H #4 patch 10/30/18 Allergies Allergy/AdvReac Type Severity Reaction Status Date / Time venom-honey bee Allergy Severe signs of Unverified 10/27/19 11:56 stroke pregabalin [From Lyrica] Allergy Mild Unverified 10/27/19 11:56 varenicline tartrate AdvReac Unknown Nausea Unverified 10/27/19 11:56 [From Chantix] General Stated Complaint: HeadInjury SCOT: 3 Review of Systems Narrative: Limited ROS secondary to being uncooperative Constitutional Constitutional: Denies fever(s) and Denies weakness Eyes Eyes: Denies change in vision ENT Ears, Nose, Mouth, and Throat: Reports neck pain Cardiovascular Cardiovascular: Denies chest pain and Denies dyspnea Respiratory Respiratory: Denies dyspnea Gastrointestinal Gastrointestinal: Denies abdominal pain, Denies nausea and Denies vomiting Musculoskeletal Musculoskeletal: Reports neck pain, Denies numbness and Denies tingling Integumentary/Breasts Skin/Breast: Denies rash Neurologic Neurologic: Denies numbness, Denies tingling and Denies weakness [facility] Medical History Acute alcohol intoxication (Inactive) Alcohol dependence Arthritis Bilateral leg edema Chronic pain Cirrhosis of liver Depression Diabetes mellitus, type II Diabetic peripheral neuropathy Encephalopathy, hepatic GERD (gastroesophageal reflux disease) Hepatitis C Hyperlipidemia Hypertension Knee pain, right Opioid abuse TIA (transient ischemic attack) Ulnar neuropathy Surgical History H/O cervical spine surgery (Acute) Hx of total knee arthroplasty (Acute) Social History Smoking/Tobacco Use Status: Current every day Tobacco Type: e-cigarettes Alcohol Intake: current Alcohol Intake frequency: a few times a week Drug use: Never Substance use type: marijuana Housing: apartment Number of Children: 3 What type of physical activity do you participate in: walking Do you feel safe in your relationship?: Yes Exam Const General: healthy appearing, comfortable, no acute distress and other (Agitated) Orientation: alert and awake HENMT Head: normal to inspection, no palpable skull fracture, normocephalic and atraumatic Ears: external ears normal, TM's normal bilaterally and EAC's normal Face and sinus: normal facial exam Mouth: moist mucous membranes Throat: posterior oropharynx normal Eyes General: appearance normal, both eyes and all related structures Alignment and Position: alignment normal Periorbital: periorbital findings normal Eyelids: eyelids normal Conjunctivae: conjunctivae normal Sclera: sclerae normal Cornea: corneas normal Pupils: PERRL EOM: EOM intact bilaterally Direct ophthalmoscopy: normal light reflex Neck Neck: normal visual inspection, trachea midline, supple and other (Wearing c- collar, diffuse posterior discomfort) Chest Chest: normal inspection of the chest and normal palpation of entire chest wall Resp Effort & Inspection: normal respiratory effort and able to speak in complete sentences Auscultation: clear to auscultation bilaterally Cardio Rate: regular rate Rhythm: regular rhythm GI Inspection: normal to inspection Palpation: soft and nontender Auscultation: normal bowel sounds Back/Spine/Pelvis Back: No back tenderness Skin General skin exam: no rashes or lesions noted Neuro General: patient alert, patient awake, patient oriented x3, moves all extremities and no focal motor deficits Cranial Nerves: CN's II-XI intact bilaterally Cognition: normal cognition Speech: speech normal Motor: muscle tone normal throughout and strength 5/5 throughout Sensory Exam: no sensory deficits noted Extrem General: normal to inspection, full ROM, capillary refill normal, no pedal edema and no calf tenderness Psych Appearance: grossly normal Mental Status: mental status grossly normal Speech and Movement: speech and movement normal Mood: angry and irritable mood Affect: labile affect Attitude: belligerent Course Vital Signs Vital signs: Vital Signs Temperature 37.0 C 10/27/19 11:53 Pulse 93 H 10/27/19 11:53 Respiratory Rate 18 10/27/19 11:53 Blood Pressure 117/75 10/27/19 11:53 Pulse Oximetry 97 10/27/19 11:53 Temperature 37.0 C 10/27/19 11:53 Temperature Source Temporal Artery Scan 10/27/19 11:53 Pulse 93 H 10/27/19 11:53 Respiratory Rate 18 10/27/19 11:53 Respiratory Effort 10/27/19 11:59 Blood Pressure 117/75 10/27/19 11:53 Pulse Oximetry 97 10/27/19 11:53 Oxygen Delivery Method Room Air 10/27/19 11:53 Oxygen Flow Rate 0 10/27/19 11:53 Pain Level 10 10/27/19 11:53
--- NOTE | 2019-10-27 13:21 | NUR.NOTE ---
Nursing Note: Patient observed to be resting comfortably on stretcher with eyes closed and even respirations.
--- NOTE | 2019-10-27 13:31 | NUR.NOTE ---
Nursing Note: Patient demanding a sandwich. Explained to patient that he is in the ER due to neck pain/concern of a fractured spine. Patient still demanding a sandwich and his CT scan to be read immediately. Explained the procedure for reading CT's and that he would have to wait.
--- NOTE | 2019-10-27 15:53 | CMPROGNOTE_ITS ---
- If Service Date Differs Date of service: 10/27/19 Time of Service: 15:54 Care Management Progress Note BHUMIKA is asked to arrange transportation for Jackson upon discharge from the ED. BHUMIKA meets with Jackson to inquire where he is going and he advises he is going to a friend's house in [facility] but is unable to provide a complete address or phone number for the friend. He goes on to say he has not spoken to this friend for several years but hopes she is home and will allow him to stay with her. BHUMIKA recommends that Jackson go to [employer] to get a motel voucher instead and Jackson is agreeable to this. While BHUMIKA is coordinating transportation through [facility] from [facility] to [employer] for Jackson, he gets a ride with some unknown person and leaves the premises.
== END 2019-10-27 14:00 | disposition home or self-care (01) ==
PROVIDERS: Emergency Provider Physician Assistant; PCP Family Medicine
DX: S09.90XA Unspecified injury of head, initial encounter (principal); M54.2 Cervicalgia; F10.10 Alcohol abuse, uncomplicated; W18.39XA Other fall on same level, initial encounter; Z98.1 Arthrodesis status; I10 Essential (primary) hypertension; E11.9 Type 2 diabetes mellitus without complications; Z79.4 Long term (current) use of insulin
CPT/HCPCS: 99284; 70450; 72125

== ENCOUNTER 2019-10-31 15:41 | Emergency (ER) | payer MEDICAID, SELFPAY ==
[2019-10-31 15:42] VITALS: BP 133/86; PULSE 84; RESP 16; TEMP 36.3; O2SAT 97
--- NOTE | 2019-10-31 16:03 | ED.GENADUL_ITS ---
Discharge Plan Disposition Patient Disposition: [facility] Condition: Good Discharge Details Chief Complaint: GenMedical Clinical Impression: Alcohol intoxication, Neck pain Primary Care Provider: Sushil Figueroa ED Provider: Alissa aTm Home Meds and New Rx's Prescriptions: Continued trazodone 150 mg tablet 150 mg PO DAILY RF: 0 citalopram 40 mg tablet 40 mg PO DAILY RF: 0 losartan 25 mg tablet 25 mg PO DAILY RF: 0 oxazepam 10 MG capsule 10 mg PO BID RF: 0 aspirin [Aspir-81] 81 MG tablet,delayed release (DR/EC) 81 mg PO DAILY RF: 0 furosemide 20 MG tablet 20 mg PO BID RF: 0 spironolactone 50 MG tablet 50 mg PO BID RF: 0 epinephrine 0.3 MG/SYR auto-injector 0.3 mg IM DIRECTED PRNRF: 0 mirtazapine 15 MG tablet 7.5 mg PO HS RF: 0 atorvastatin [Lipitor] 40 MG tablet 40 mg PO QPM RF: 0 lactulose [Constulose] 10 GM/15 ML solution 45 gm PO TID RF: 0 Levemir U-100 Insulin 100 UNIT/ML solution 22 unit SQ DAILY RF: 0 lidocaine [Lidoderm] 1 PATCH patch 1 patch Topical Q24H Qty: 4 RF: 0 duloxetine [Cymbalta] 30 MG capsule,delayed release(DR/EC) 60 mg PO DAILY RF: 0 magnesium oxide 400 MG tablet 400 mg PO BID RF: 0 gabapentin 800 MG tablet 800 mg PO TID RF: 0 multivitamin 1 EACH capsule 1 ea PO DAILY RF: 0 insulin lispro [Humalog KwikPen Insulin] 100 UNIT/ML insulin pen 8 unit SQ AC RF: 0 thiamine mononitrate (vit B1) [Vitamin B-1 (mononitrate)] 100 MG tablet 100 mg PO DAILY RF: 0 Discharge Instructions Instructions: Alcohol Intoxication (ED), Neck Pain (ED) Additional Instructions: Please consider further cutting back on alcohol. Please discuss further with your primary care when you are ready. I would like for you to be seen by her primary care this week. Your CT imaging does not show any new abnormality in your neck. Please go to economic services to discuss housing options further. If you develop any new or worsening symptoms please seek care urgently once again. Referrals: Sushil Figueroa [Primary Care Provider] - Medical Decision Making Patient is a 59 year old male, PMH significant for alcohol abuse, alcohol cirrhosis of liver, TIA, acquired thrombocytopenia. He presents today with chief complaint of neck pain. He reports a prior to arrival he was being [facility]. He was not clear on where he should go after the eviction what he should do. It was at that point the patient developed neck pain. Patient does have chronic neck pain. Has had previous cervical spine surgeries. States that he is scheduled to have surgery as well in the lower back is not endorsing low back pain at this point. States he did fall yesterday. Believes that it was at that point that he had the increased neck pain. Initially, the patient endorsed a headache, is now denying headache. Denies any visual change. Patient has general weakness but no acute or localized area of weakness. Patient reports that he has had 2 tall boys today. Denies any chest pain, shortness of breath abdominal pain. No nausea or vomiting. Denies any incontinence. Does not have any local support, is unclear where he will be able to go after discharge. Patient is demanding sandwich On exam, patient is agitated, yelling for entities. I have seen this patient historically and he appears to be at his baseline. He is not slurring his speech. Does not appear acutely intoxicated. Patient has incision consistent with his cervical surgery of cervical spine. No erythema, warmth. No focal tenderness or step-off. Patient's vital signs are stable. I do not see any evidence to suggest infection. Remaining trauma exam without significant abnormality. Given the patient's past medical history and surgery, I do feel that CT scan to evaluate his neck pain further would be appropriate. As he had been endorsing some headache, will also include the head. Patient has been here multiple times recently and has had imaging on most recent visit as well. Also consult with care management. Patient will need to go to economic services tomorrow. They are currently closed. Spoke with care management. She advised that they would help to get him house. Michael requested to check ETOH level, patient blew 0.162. Patient back from CT scan. He continues to be agitated. He was eating and drinking this unassisted. Became agitated and threw his food. When LMA was cleaning up the muscle developed, patient became very agitated and was yelling at him. Tylenol level in the room, and supported the patient had asked the only to get his backpack. As the L N/A was in the middle of the task, he asked the patient to wait moment and the patient began swearing and threatening. Patient repetitively told the LMA, nursing staff and myself to fuck off. He also threatened to punch the DIRECTOR TELEVISION in the face. Patient was able to get up quickly and get his back himself unassisted. I did not evidence any weakness or pain with movements. Patient continued to yell obscenities directed at staff throughout the movement. Patient is able to get up, get his belongings back in bed unassisted. Verbally de-escalated. CT reviewed by radiologist: FINDINGS: Brain: Mild atrophy and decreased attenuation periventricular and subcortical white matter most consistent with mild chronic microvascular change similar to the comparison study. No hemorrhage. No mass effect. Ventricles: The ventricular system demonstrates mild diffuse compensatory enlargement. Bones/joints: Unremarkable. No acute fracture. Sinuses: Visualized sinuses are unremarkable. No fluid levels. Mastoid air cells: Visualized mastoid air cells are well aerated. Vasculature: There is moderate atherosclerotic calcification of the cavernous carotid arteries. Soft tissues: Unremarkable. IMPRESSION: No acute intracranial abnormality. FINDINGS: Vertebrae: There are bilateral laminectomy defects from C2 down through C6. There is posterior fusion with bilateral stabilizing bars and screws extending from C2 down into the upper thoracic spine beyond the image plane. The hardware appears to be intact. There is diffuse degenerative disc disease for and chronic minimal anterior listhesis of C2 on C3. A large subchondral cyst is noted in the dens unchanged. C2-C3: No significant disc protrusion. No severe spinal canal stenosis. No significant neural foraminal narrowing. C3-C4: No significant disc protrusion. No severe spinal canal stenosis. Mild right greater than left neural foraminal narrowing primarily due to vertebral endplate osteophytes. C4-C5: No significant disc protrusion. No severe spinal canal stenosis. No significant neural foraminal narrowing. C5-C6: No significant disc protrusion. No severe spinal canal stenosis. No significant neural foraminal narrowing. C6-C7: No significant disc protrusion. No severe spinal canal stenosis. Mild to moderate bilateral neural foraminal narrowing primarily due to vertebral endplate osteophytes. C7-T1: No significant disc protrusion. No severe spinal canal stenosis. No significant neural foraminal narrowing. Soft tissues: Unremarkable. Lungs: Lung apices are normal. IMPRESSION: Postoperative and degenerative changes unchanged since the comparison study. No acute findings. Reviewed these findings with the patient. Again, patient appears clinically sober has a patient does not have a place to go, I do feel it would be judicious for him to go into police custody but does have alcohol level over the legal limit. Until he is more sober. I am concerned that he may drink further tonight and may continue to escalate as he has been here. Patient was screened by mental health. I did advise him that the economic services care management has advised for him to see is [facility] to the [facility] and that he would be able to go there tomorrow morning to discuss housing further. He was given return precautions. I have asked that he follow-up with primary care regarding his chronic neck pain. He was given return precautions. All his questions and concerns were addressed and he is in agreement this plan. HPI General Mode of arrival: EMS . Date/Time Provider Initiated Documentation: 10/31/19 16:02 . Limitations to Documentation: no limitations . Information obtained by: patient, EMS, RN notes reviewed and old records reviewed . History of Present Illness 59 year old M presents to the emergency department with the chief complaint of neck pain, described as moderate and similar to prior episodes (acute on chronic, hx of neck surgery), with intensity rated at 6. Quality is described as aching, and is localized to the neck. Patient reports no radiation. Patient started experiencing this day(s) (1) and it has been constant. Immobilization improves symptom(s), Movement worsens symptoms . Patient notes weakness (generalized); denies chest pain, cough, fever/chills, headaches, loss of appetite, nausea/vomiting, rash and shortness of breath. Patient did receive the following treatments prior to arrival, none Related Data Home Medications Medication Instructions Recorded Confirmed epinephrine 0.3 mg IM DIRECTED PRN 01/15/13 10/29/18 mirtazapine 7.5 mg PO HS 11/21/15 10/29/18 duloxetine [Cymbalta] 60 mg PO DAILY 04/06/16 10/29/18 Levemir U-100 Insulin 22 unit SQ DAILY 08/19/16 10/29/18 atorvastatin [Lipitor] 40 mg PO QPM 08/19/16 10/29/18 lactulose [Constulose] 45 gm PO TID 08/19/16 10/29/18 gabapentin 800 mg PO TID 11/19/16 10/29/18 insulin lispro [Humalog KwikPen 8 unit SQ AC 11/19/16 10/29/18 Insulin] magnesium oxide 400 mg PO BID 11/19/16 10/29/18 multivitamin 1 ea PO DAILY 11/19/16 10/29/18 thiamine mononitrate (vit B1) 100 mg PO DAILY 11/19/16 10/29/18 [Vitamin B-1 (mononitrate)] aspirin [Aspir-81] 81 mg PO DAILY tab-cap 03/15/17 10/29/18 furosemide 20 mg PO BID tab-cap 03/15/17 10/29/18 oxazepam 10 mg PO BID 03/15/17 10/29/18 spironolactone 50 mg PO BID tab-cap 03/15/17 10/29/18 citalopram 40 mg tablet 40 mg PO DAILY 06/08/18 10/29/18 losartan 25 mg tablet 25 mg PO DAILY 06/08/18 10/29/18 trazodone 150 mg tablet 150 mg PO DAILY 06/08/18 10/29/18 lidocaine [Lidoderm] 1 patch TOPICAL Q24H #4 patch 10/30/18 Previous Rx's Medication Instructions Recorded lidocaine [Lidoderm] 1 patch TOPICAL Q24H #4 patch 10/30/18 Allergies Allergy/AdvReac Type Severity Reaction Status Date / Time venom-honey bee Allergy Severe signs of Unverified 10/27/19 11:56 stroke pregabalin [From Lyrica] Allergy Mild Unverified 10/27/19 11:56 varenicline tartrate AdvReac Unknown Nausea Unverified 10/27/19 11:56 [From Chantix] General Stated Complaint: GenMedical SCOT: 3 Review of Systems Constitutional Constitutional: Reports as per HPI, Denies chills, Denies fatigue, Denies fever(s), Reports frequent falls, Denies headache(s) and Reports weakness (chronic, generalized) Eyes Eyes: Denies change in vision ENT Ears, Nose, Mouth, and Throat: Denies headache(s) Cardiovascular Cardiovascular: Denies chest pain, Denies dyspnea and Denies dyspnea on exertion Respiratory Respiratory: Denies cough, Denies dyspnea and Denies dyspnea on exertion Gastrointestinal Gastrointestinal: Denies abdominal pain, Denies change in bowel habits and Denies fecal incontinence Genitourinary Genitourinary: Reports as per HPI, Denies urinary hesitancy and Denies urinary incontinence Musculoskeletal Musculoskeletal: Reports as per HPI, Reports back pain, Reports muscle weakness, Reports numbness, Denies radiating pain into limb, Reports stiffness and Denies tingling Integumentary/Breasts Skin/Breast: Reports as per HPI and Denies rash Neurologic Neurologic: Reports as per HPI, Reports frequent falls, Denies headache(s), Denies localized weakness, Reports numbness, Denies radicular pain, Denies sensory deficit, Denies tingling, Denies paresthesias and Reports weakness (chronic, generalized) Endocrine Endocrine: Denies fatigue [facility] Medical History Acute alcohol intoxication (Inactive) Alcohol dependence Arthritis Bilateral leg edema Chronic pain Cirrhosis of liver Depression Diabetes mellitus, type II Diabetic peripheral neuropathy Encephalopathy, hepatic GERD (gastroesophageal reflux disease) Hepatitis C Hyperlipidemia Hypertension Knee pain, right Opioid abuse TIA (transient ischemic attack) Ulnar neuropathy Surgical History H/O cervical spine surgery (Acute) Hx of total knee arthroplasty (Acute) Social History Smoking/Tobacco Use Status: Current every day Tobacco Type: e-cigarettes Alcohol Intake: current Alcohol Intake frequency: a few times a week Drug use: Never Substance use type: marijuana Housing: apartment Number of Children: 3 What type of physical activity do you participate in: walking Do you feel safe at home: Yes Do you feel safe in your relationship?: Yes Exam Const General: healthy appearing, no acute distress, well developed, well groomed and combative (agressive, angry, yelling at staff frequently) Nutritional Appearance: average body habitus and well nourished Orientation: alert, awake and oriented x3 Eyes General: appearance normal, both eyes and all related structures Neck Neck: not normal to visual inspection (post surgical scars posteriorly), full ROM, no lymphadenopathy, no meningeal signs, trachea midline and supple Chest Chest: normal inspection of the chest, no crepitus, no localized rib tenderness and no tenderness Resp Effort & Inspection: normal respiratory effort and able to speak in complete sentences Auscultation: clear to auscultation bilaterally, no rales, no rhonchi and no wheezes Cardio Rate: regular rate Rhythm: regular rhythm Heart Sounds: S1 normal and S2 normal GI Inspection: normal to inspection Palpation: soft, not firm, no guarding, no pulsatile masses, not rigid and nontender Percussion: normal to percussion Auscultation: normal bowel sounds Back/Spine/Pelvis Back: no CVA tenderness Cervical Spine: No normal cervical lordosis (limited ROM, appears post surgical), loss of normal cervical lordosis, No pain with cervical ROM (does not appear to be in pain with movmeent, more with palpation), scars present, cervical spinal tenderness (diffuse) and No step off deformity Thoracic/Lumbar Spine: thoracic and lumbar spine normal to inspection, No paraspinal tenderness, No thoracic spinal tenderness and No lumbar spinal tenderness Pelvis: no pain with anterior-posterior compression and no pain with lateral compression Skin General skin exam: no rashes or lesions noted Neuro General: patient alert and patient awake Cognition: normal cognition Speech: speech normal Motor: muscle tone normal throughout, strength not 5/5 throughout (4/4 in all extremities), no pronator drift, no movement abnormalities noted and no fasciculations Sensory Exam: no sensory deficits noted (no saddle paresthesias) Extrem General: normal to inspection, full ROM, capillary refill normal, no joint enlargement, no pedal edema and no calf tenderness Psych Appearance: grossly normal and disheveled Mental Status: mental status grossly normal Speech and Movement: agitated Mood: angry Course Vital Signs Vital signs: Vital Signs Temperature 36.3 C L 10/31/19 15:42 Pulse 84 10/31/19 15:42 Blood Pressure 133/86 10/31/19 15:42 Pulse Oximetry 97 10/31/19 15:42 Temperature 36.3 C L 10/31/19 15:42 Temperature Source Temporal Artery Scan 10/31/19 15:42 Pulse 84 10/31/19 15:42 Respiratory Effort Non-Labored 10/31/19 15:51 Blood Pressure 133/86 10/31/19 15:42 Blood Pressure Position Sitting 10/31/19 15:42 Pulse Oximetry 97 10/31/19 15:42 Oxygen Delivery Method Room Air 10/31/19 15:42 Oxygen Flow Rate 0 10/31/19 15:42 Pain Level 6 10/31/19 15:42
--- NOTE | 2019-10-31 16:30 | DI.CT_ITS ---
EXAM: CT HEAD CERVICAL SPINE WO CLINICAL HISTORY: fall TECHNIQUE: COMPARISON: CT HEAD NECK FACIAL WO from 08/19/[address] HEAD CERVICAL SPINE WO from 10/29/[address] HEAD CERVICAL SPINE WO from 10/27/2019 FINDINGS: CT examination of the cervical spine was performed without contrast administration. Note is again mad e of previously described posterior spinal fusion with German rods place from C2 through the uppe r thoracic spine. Degenerative changes of the spine are again noted. There is no acute fracture. There is a sub cortical lytic lesion the odontoid with some loss of overlying cortex at the atlanto a xial joint. This may represent a degenerative cyst, other etiologies not excluded, this was not prese nt on prior CT of 2019. Additional evaluation with MRI may be considered if clinically appropriate. No cervical mass or adenopathy identified. Tracheolaryngeal structures appear intact. Noncontrast cranial CT was performed. There is moderate to severe generalized cerebral atrophy out of proportion to the patient's age. There is no evidence of acute intracranial hemorrhage, mass effect, or midline shift. No calvarial fracture identified. Visualized mastoid air cells and paranasal sinus es appear clear. Orbital and temporal bone structures appear intact. IMPRESSION: No evidence of acute intracranial injury. No evidence of acute cervical spine fracture. 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
[2019-10-31] MEDS: Ibuprofen 600 MG TAB PO (17:17)
[2019-10-31] MEDS: Acetaminophen 500 MG TAB 1000 MG PO (17:17)
[2019-10-31] MEDS: Lidocaine 5% Patch 1 PATCH TP (17:18)
--- NOTE | 2019-10-31 17:59 | DI.VRAD_ITS ---
PROCEDURE INFORMATION: Exam: CT Head Without Contrast Exam date and time: 10/31/2019 5:17 PM Age: 59 years old Clinical indication: Other: Fall head and neck pain; Prior surgery; Surgery date: 6+ months TECHNIQUE: Imaging protocol: Computed tomography of the head without contrast. COMPARISON: CT HEAD CERVICAL SPINE WO 10/27/2019 12:41 PM FINDINGS: Brain: Mild atrophy and decreased attenuation periventricular and subcortical white matter most consistent with mild chronic microvascular change similar to the comparison study. No hemorrhage. No mass effect. Ventricles: The ventricular system demonstrates mild diffuse compensatory enlargement. Bones/joints: Unremarkable. No acute fracture. Sinuses: Visualized sinuses are unremarkable. No fluid levels. Mastoid air cells: Visualized mastoid air cells are well aerated. Vasculature: There is moderate atherosclerotic calcification of the cavernous carotid arteries. Soft tissues: Unremarkable. IMPRESSION: No acute intracranial abnormality. PROCEDURE INFORMATION: Exam: CT Cervical Spine Without Contrast Exam date and time: 10/31/2019 5:17 PM Age: 59 years old Clinical indication: Other: Fall head and neck pain; Prior surgery; Surgery date: 6+ months TECHNIQUE: Imaging protocol: Computed tomography images of the cervical spine without contrast. Radiation optimization: All CT scans at this facility use at least one of these dose optimization techniques: automated exposure control; mA and/or kV adjustment per patient size (includes targeted exams where dose is matched to clinical indication); or iterative reconstruction. COMPARISON: CT HEAD CERVICAL SPINE WO 10/27/2019 12:41 PM FINDINGS: Vertebrae: There are bilateral laminectomy defects from C2 down through C6. There is posterior fusion with bilateral stabilizing bars and screws extending from C2 down into the upper thoracic spine beyond the image plane. The hardware appears to be intact. There is diffuse degenerative disc disease for and chronic minimal anterior listhesis of C2 on C3. A large subchondral cyst is noted in the dens unchanged. C2-C3: No significant disc protrusion. No severe spinal canal stenosis. No significant neural foraminal narrowing. C3-C4: No significant disc protrusion. No severe spinal canal stenosis. Mild right greater than left neural foraminal narrowing primarily due to vertebral endplate osteophytes. C4-C5: No significant disc protrusion. No severe spinal canal stenosis. No significant neural foraminal narrowing. C5-C6: No significant disc protrusion. No severe spinal canal stenosis. No significant neural foraminal narrowing. C6-C7: No significant disc protrusion. No severe spinal canal stenosis. Mild to moderate bilateral neural foraminal narrowing primarily due to vertebral endplate osteophytes. C7-T1: No significant disc protrusion. No severe spinal canal stenosis. No significant neural foraminal narrowing. Soft tissues: Unremarkable. Lungs: Lung apices are normal. IMPRESSION: Postoperative and degenerative changes unchanged since the comparison study. No acute findings. Dictated and Authenticated by: Stephen De La Paz MD. Ordering:SHERYL Maxwell MD
[2019-10-31 19:09] VITALS: BP 103/63; PULSE 92; RESP 18; TEMP 36.8; O2SAT 98
[2019-10-31 19:16] VITALS: BP 103/63; PULSE 68; RESP 16; TEMP 36.7; O2SAT 98
== END 2019-10-31 19:10 | disposition home or self-care (01) ==
PROVIDERS: Emergency Provider Physician Assistant; PCP Family Medicine
DX: M54.2 Cervicalgia (principal); G89.29 Other chronic pain; F10.129 Alcohol abuse with intoxication, unspecified; R45.1 Restlessness and agitation; E11.9 Type 2 diabetes mellitus without complications; Z79.4 Long term (current) use of insulin; I10 Essential (primary) hypertension
CPT/HCPCS: 99285; 70450; 72125; 99284

== ENCOUNTER 2019-11-01 07:20 | Emergency (ER) | payer MEDICAID, SELFPAY ==
[2019-11-01 07:27] VITALS: BP 144/91; PULSE 99; RESP 16; TEMP 36; O2SAT 96
[2019-11-01] MEDS: Lidocaine 5% Patch 2 PATCH TP (07:30)
[2019-11-01] MEDS: Ketorolac 30 MG/ML VIAL IM (07:30)
[2019-11-01] MEDS: Acetaminophen 500 MG TAB 1000 MG PO (07:30)
[2019-11-01] MEDS: Lidocaine 5% Patch 1 PATCH (07:30)
--- NOTE | 2019-11-01 07:30 | DI.RAD_ITS ---
EXAM: XR LUMBAR SPINE COMPLETE CLINICAL HISTORY: chronic lower back pain, recent fall TECHNIQUE: COMPARISON: CR LUMBAR SPINE COMPLETE from 07/12/2012 FINDINGS: Five views were obtained. There is a mild biconvex thoracolumbar scoliosis. There are severe hypert rophic degenerative changes involving the vertebral endplates and facet joints throughout the lumbar region. There is multilevel disc space narrowing consistent with disc degeneration. There is no evidence of acute fracture or dislocation. IMPRESSION: Severe DJD, no evidence of acute fracture.
--- NOTE | 2019-11-01 07:33 | ED.GENADUL_ITS ---
Discharge Plan Disposition Patient Disposition: HOME Condition: Stable Discharge Details Chief Complaint: Nk/Back Pain Clinical Impression: Back pain, Status post fall Primary Care Provider: Sushil Figueroa ED Provider: Jailyn Pedro Home Meds and New Rx's Prescriptions: Continued trazodone 150 mg tablet 150 mg PO DAILY RF: 0 citalopram 40 mg tablet 40 mg PO DAILY RF: 0 losartan 25 mg tablet 25 mg PO DAILY RF: 0 oxazepam 10 MG capsule 10 mg PO BID RF: 0 aspirin [Aspir-81] 81 MG tablet,delayed release (DR/EC) 81 mg PO DAILY RF: 0 furosemide 20 MG tablet 20 mg PO BID RF: 0 spironolactone 50 MG tablet 50 mg PO BID RF: 0 epinephrine 0.3 MG/SYR auto-injector 0.3 mg IM DIRECTED PRNRF: 0 mirtazapine 15 MG tablet 7.5 mg PO HS RF: 0 atorvastatin [Lipitor] 40 MG tablet 40 mg PO QPM RF: 0 lactulose [Constulose] 10 GM/15 ML solution 45 gm PO TID RF: 0 Levemir U-100 Insulin 100 UNIT/ML solution 22 unit SQ DAILY RF: 0 lidocaine [Lidoderm] 1 PATCH patch 1 patch Topical Q24H Qty: 4 RF: 0 pantoprazole [Protonix] 20 mg Tablet,Delayed Release (Dr/Ec) 20 mg PO DAILY RF: 0 duloxetine [Cymbalta] 30 MG capsule,delayed release(DR/EC) 60 mg PO DAILY RF: 0 magnesium oxide 400 MG tablet 400 mg PO BID RF: 0 gabapentin 800 MG tablet 800 mg PO TID RF: 0 multivitamin 1 EACH capsule 1 ea PO DAILY RF: 0 insulin lispro [Humalog KwikPen Insulin] 100 UNIT/ML insulin pen 8 unit SQ AC RF: 0 thiamine mononitrate (vit B1) [Vitamin B-1 (mononitrate)] 100 MG tablet 100 mg PO DAILY RF: 0 Discharge Instructions Instructions: Back Pain (ED) Additional Instructions: Alternate ice and heat to the affected area(s) several times daily for 20 minutes at a time. Alternate tylenol and motrin as needed and directed for pain. Follow-up with your primary care doctor in 1 week for reevaluation and for referral for outpatient cervical spine MRI for further evaluation of the lesion noted in the cervical spine C1-[address] spine CT scan from 10/31/19. Return to the emergency department with any worsening or new concerning symptoms. Discharge Data Discharge Date/Time-TO BE ENTERED AT DEPARTURE: 11/01/19 09:18 Discharge Physician: Jailyn Pedro Medical Decision Making <Blue Wiggins DO - Last Filed: 11/01/19 07:47> 59-year-old male with a past medical history of chronic alcoholism, chronic back pain, high blood pressure, high cholesterol, type 2 diabetes, hepatitis C, GERD, previous TIA, who presents today for evaluation of back pain. The patient was recently evicted from his home/apartment of his friends where he was staying. He was intoxicated at that time, and unfortunately tripped over his walker. He was subsequently brought to the ER for evaluation, alcohol levels were elevated. CT scan of his head and neck were ordered, both of which were negative for acute process. He did have chronic low back pain, which she described is unchanged. He was eventually discharged to the police for sobering. Today after he was blowing zeros while at the intermediate he again called EMS as currently he is both homeless, and he was still having back and neck pain. He denies any acute changes or any new traumas. The patient is a notably challenging historian, he complains of pain all over, as his baseline, he denies any focal numbness or tingling. Patient denies any saddle anesthesia, numbness or tingling in the groin, change in sensation when wiping. Patient denies any change in sensation during sexual intercourse, difficulty achieving or krystle ntaining an erection or ejaculation, bowel or bladder incontinence, leakage, or retention. Patient denies any new weakness in the lower extremities, atypical falls or change in his balance. Physical exam demonstrates what appears to be chronic paraspinal tenderness, but no midline tenderness. No concerning red flags on exam for cauda equina syndrome. CT scan next demonstrates no evidence of acute process for his neck. No new trauma since then. He does have chronic low back pain. Will get x-rays to evaluate for acute process which I feel less likely. As the patient currently has no home, we have contacted our disease case manager rn who does recommend that he call 211 to help set up potential housing options. Out of an abundance of precaution with his recent undomiciled nature, and various living scenarios we will get a coronavirus testing for thoroughness. Case will be signed out to my colleague for further evaluation and follow-up on imaging. <Jailyn Pdero DO - Last Filed: 11/01/19 12:33> 0800 --Case endorsed to follow-up on imaging, with care management and final disposition. Prior to my evaluation, patient is walking out of his room stating he is leaving. Patient would not allow me to evaluate him stating I need to get my stuff and I am leaving . Patient had inquired multiple times about where all of his belongings are and it was later determined that they were at [facility]. Patient has a no trespassing order at the [facility]. We were informed that the police will be obtaining his belongings and bring them to the ED. Care management stated that patient has been determined to be suspended or aka on the do not house list from [employer] for housing until November 14. It was discussed that [place] [facility] [place]. He was given options for transportation including a bus. Patient did not want to wait for any this information and walked out of the ED barefoot. He was offered socks but declined. Patient was informed of the lesion noted on his cervical spine at the atlantoaxial joint from CT cervical spine from yesterday. He was advised to follow-up with his PCP and for possible MRI for further evaluation. Advised to follow up with the primary care doctor for re-evaluation. Usual and customary return precautions given prior to discharge. HPI <Blue Wiggins DO - Last Filed: 11/01/19 07:47> General Date/Time Provider Initiated Documentation: 11/01/19 07:24 . HPI Narrative: 59-year-old male with a past medical history of chronic alcoholism, chronic back pain, high blood pressure, high cholesterol, type 2 diabetes, hep atitis C, GERD, previous TIA, who presents today for evaluation of back pain. The patient was recently evicted from his home/apartment of his friends where he was staying. He was intoxicated at that time, and unfortunately tripped over his walker. He was subsequently brought to the ER for evaluation, alcohol levels were elevated. CT scan of his head and neck were ordered, both of which were negative for acute process. He did have chronic low back pain, which she described is unchanged. He was eventually discharged to the police for sobering. Today after he was blowing zeros while at the intermediate he again called EMS as currently he is both homeless, and he was still having back and neck pain. He denies any acute changes or any new traumas. The patient is a notably challenging historian, he complains of pain all over, as his baseline, he denies any focal numbness or tingling. Patient denies any saddle anesthesia, numbness or tingling in the groin, change in sensation when wiping. Patient denies any change in sensation during sexual intercourse, difficulty achieving or maintaining an erection or ejaculation, bowel or bladder incontinence, leakage, or retention. Patient denies any new weakness in the lower extremities, atypical falls or change in his balance. Related Data Home Medications Medication Instructions Recorded Confirmed epinephrine 0.3 mg IM DIRECTED PRN 01/15/13 11/01/19 mirtazapine 7.5 mg PO HS 11/21/15 11/01/19 duloxetine [Cymbalta] 60 mg PO DAILY 04/06/16 11/01/19 Levemir U-100 Insulin 22 unit SQ DAILY 08/19/16 11/01/19 atorvastatin [Lipitor] 40 mg PO QPM 08/19/16 11/01/19 lactulose [Constulose] 45 gm PO TID 08/19/16 11/01/19 gabapentin 800 mg PO TID 11/19/16 11/01/19 insulin lispro [Humalog KwikPen 8 unit SQ AC 11/19/16 11/01/19 Insulin] magnesium oxide 400 mg PO BID 11/19/16 11/01/19 multivitamin 1 ea PO DAILY 11/19/16 11/01/19 thiamine mononitrate (vit B1) 100 mg PO DAILY 11/19/16 11/01/19 [Vitamin B-1 (mononitrate)] aspirin [Aspir-81] 81 mg PO DAILY tab-cap 03/15/17 11/01/19 furosemide 20 mg PO BID tab-cap 03/15/17 11/01/19 oxazepam 10 mg PO BID 03/15/17 11/01/19 spironolactone 50 mg PO BID tab-cap 03/15/17 11/01/19 citalopram 40 mg tablet 40 mg PO DAILY 06/08/18 11/01/19 losartan 25 mg tablet 25 mg PO DAILY 06/08/18 11/01/19 trazodone 150 mg tablet 150 mg PO DAILY 06/08/18 11/01/19 lidocaine [Lidoderm] 1 patch TOPICAL Q24H #4 patch 10/30/18 11/01/19 pantoprazole [Protonix] 20 mg PO DAILY 11/01/19 11/01/19 Previous Rx's Medication Instructions Recorded lidocaine [Lidoderm] 1 patch TOPICAL Q24H #4 patch 10/30/18 Allergies Allergy/AdvReac Type Severity Reaction Status Date / Time venom-honey bee Allergy Severe signs of Unverified 11/01/19 07:31 stroke pregabalin [From Lyrica] Allergy Mild Unverified 11/01/19 07:31 varenicline tartrate AdvReac Unknown Nausea Unverified 11/01/19 07:31 [From Chantix] General Stated Complaint: Nk/Back Pain SCOT: 3 Review of Systems <Blue Wiggins DO - Last Filed: 11/01/19 07:47> All systems reviewed & are unremarkable except as noted in HPI and below PFSH <Blue Wiggins DO - Last Filed: 11/01/19 07:47> Medical History Acute alcohol intoxication (Inactive) Alcohol dependence Arthritis Bilateral leg edema Chronic pain Cirrhosis of liver Depression Diabetes mellitus, type II Diabetic peripheral neuropathy Encephalopathy, hepatic GERD (gastroesophageal reflux disease) Hepatitis C Hyperlipidemia Hypertension Knee pain, right Opioid abuse TIA (transient ischemic attack) Ulnar neuropathy Surgical History H/O cervical spine surgery (Acute) Hx of total knee arthroplasty (Acute) Social History Smoking/Tobacco Use Status: Current every day Tobacco Type: cigarettes and e- cigarettes Alcohol Intake: current Alcohol Intake frequency: a few times a week Drug use: Never Substance use type: marijuana Housing: apartment Number of Children: 3 What type of physical activity do you participate in: walking Do you feel safe at home: Yes Do you feel safe in your relationship?: Yes Exam <Blue Wiggins DO - Last Filed: 11/01/19 07:47> Narrative Exam Narrative: 1.Const: Well-nourished, Well-developed, appearing stated age 2.Eyes: PERRL, no conjunctival injection, and symmetrical lids. 3.ENT: Atraumatic external nose and ears. Moist MM. Neck: Symmetric, trachea midline, No thyromegaly. 4.CVS: +S1/S2, No murmurs or gallops. Peripheral pulses 2+ and equal in all extremities. Brisk capillary refill in all extremities. 5.RESP: Unlabored respiratory effort. Clear to auscultation bilaterally. No wheezes rales or rhonchi 6.GI: Soft, Nontender/Nondistended, No hepatosplenomegaly. No guarding or rebound. 7.MSK: Normocephalic/Atraumatic, Extremities w/o deformity or ttp No cyanosis or clubbing, Normal movement of all extremities No midline tenderness to palpation over the CTLS spine. Mild pain and tenderness over the paraspinal lumbar regions, as well as paraspinal cervical regions. No midline tenderness though. Normal ROM in flexion, extension, side bend, and rotation. Patient has +5 out of 5 strength in the lower extremities in dorsiflexion and plantarflexion, knee flexion and extension, hip flexion and extension. Normal strength for dorsiflexion and plantar flexion of the great toe bilaterally. There is +2 over 2 dorsalis pedis pulses bilaterally. There is normal sensation to the skin with light touch at the foot, knee, and hip. Normal saddle sensation. Good sensation over the deep sural nerve area bilaterally. Rectal exam deferred. Reflexes are +2 over 4 in the patellar reflex bilaterally. +5 out of 5 strength in the medial, ulnar, radial nerve distribution bilaterally in the hands as well as intact light touch sensation to these dermatomes on the hands 8.Skin: Warm, Dry. No rashes or lesions. 9.Neuro: senior specialist II-XII grossly intact. Sensation grossly intact, no focal neurologic deficits. 10.Psych: (AAO) x3. Notably confrontational, notably unpleasant with nursing staff. Course <Blue Wiggins DO - Last Filed: 11/01/19 07:47> Vital Signs Vital signs: Vital Signs Temperature 36.0 C L 11/01/19 07:27 Pulse 99 H 11/01/19 07:27 Respiratory Rate 16 11/01/19 07:27 Blood Pressure 144/91 H 11/01/19 07:27 Pulse Oximetry 96 11/01/19 07:27 Temperature 36.0 C L 11/01/19 07:27 Temperature Source Skin 11/01/19 07:27 Pulse 99 H 11/01/19 07:27 Respiratory Rate 16 11/01/19 07:27 Respiratory Effort Non-Labored 11/01/19 07:27 Blood Pressure 144/91 H 11/01/19 07:27 Blood Pressure Position Supine 11/01/19 07:27 Pulse Oximetry 96 11/01/19 07:27 Oxygen Delivery Method Room Air 11/01/19 07:27 Oxygen Flow Rate 0 11/01/19 07:27 Pain Level 10 11/01/19 07:27 Sign Out <Blue Wiggins DO - Last Filed: 11/01/19 07:47> Sign Out Data: Sign Out Comment: f/u on imaging/placement Last updated by Blue Wiggins DO at 11/01/19 07:52
--- NOTE | 2019-11-01 09:53 | CMPROGNOTE_ITS ---
- If Service Date Differs Date of service: 11/01/19 Time of Service: 09:53 Care Management Progress Note Jackson presents in the ED for the 6th time this month with complaints of back pain. Jackson, who is currently homeless, has been staying with a friend at the [facility], but for reasons that are unclear to CM, he was served with a no trespass order last evening and had to leave the premises. Today, BHUMIKA contacts [employer] to inquire about Jackson obtaining a motel voucher and is in formed that Jackson is penalized until November 14 and is currently on the [facility]'s Do Not House list. BHUMIKA also contacts the [facility] penit[facility]iary in [place] and learns the penitentiary is currently closed. At the request of ED provider, BHUMIKA helps Jackson get his belongings back from the [facility]. CM contacts dispatch for the [place] [employer] to inquire if they can picker tender helper Jackson's belongings from the mot and hold them there until Jackson is discharged from [facility] and can come pick them up. Chief Hermosillo returns my telephone call to advise Jackson's belongings have been retrieved and are at the [employer] [place] [employer]. BHUMIKA then coordinates transportation via [facility] from [facility] to the [employer] [place] [employer], then to Jackson's daughter's home at [address] [place] [address] in [facility]. BHUMIKA also contacts [employer] and Leeanna Rowan, the community organization director at Jackson's PCP's office, to enlist their assistance in finding solutions to Jackson's housing issues.
--- NOTE | 2019-11-01 09:53 | PDOC.ERCMPRO ---
- If Service Date Differs Date of service: 11/01/19 Time of Service: 09:53 Care Management Progress Note Jackson presents in the ED for the 6th time this month with complaints of back pain. Jackson, who is currently homeless, has been staying with a friend at the [facility], but for reasons that are unclear to CM, he was served with a no trespass order last evening and had to leave the premises. Today, BHUMIKA contacts [employer] to inquire about Jackson obtaining a motel voucher and is informed that Jackson is penalized until November 14 and is currently on the [facility]'s Do Not House list. BHUMIKA also contacts the [facility] retirement in [place] and learns the retirement is currently closed. At the request of ED provider, BHUMIKA helps Jackson get his belongings back from the [facility]. CM contacts dispatch for the [employer] to inquire if they can brick picker Jackson's belongings from the mot and hold them there until Jackson is discharged from [facility] and can come pick them up. Chief Hermosillo returns my telephone call to advise Jackson's belongings have been retrieved and are at the [place] [employer]. BHUMIKA then coordinates transportation via [facility] from [facility] to the [employer], then to Jackson's daughter's home at [address] [place] [address] in [facility]. BHUMIKA also contacts [employer] and Leeanna Rowan, the community health program coordinator at Jackson's PCP's office, to enlist their assistance in finding solutions to Jackson's housing issues.
[2019-11-02 21:08] LABS: COVID-19 RT-PCR UVMMC Result Negative (Negative)
== END 2019-11-01 09:18 | disposition home or self-care (01) ==
PROVIDERS: Student in an Organized Health Care Education/Training Program; Emergency Provider Physician Assistant; PCP Family Medicine
DX: M54.5 Low back pain (principal); W01.0XXA Fall on same level from slipping, tripping and stumbling without subsequent striking against object, initial encounter; G89.29 Other chronic pain; Z59.0 Homelessness; R93.7 Abnormal findings on diagnostic imaging of other parts of musculoskeletal system; Z11.59 Encounter for screening for other viral diseases; E11.42 Type 2 diabetes mellitus with diabetic polyneuropathy; Z79.4 Long term (current) use of insulin; I10 Essential (primary) hypertension
CPT/HCPCS: 96372; 99284; U0003; 72110; J1885

== ENCOUNTER 2019-12-13 05:33 | Emergency (ER) | payer MEDICAID, SELFPAY ==
[2019-12-13 05:35] VITALS: BP 132/52; PULSE 69; RESP 20; TEMP 36.6; O2SAT 98
--- NOTE | 2019-12-13 05:40 | ED.GENADUL_ITS ---
Discharge Plan Disposition Patient Disposition: AGAINST MEDICAL ADVICE Condition: Stable Discharge Details Chief Complaint: Orthopedic Clinical Impression: Chronic back pain Primary Care Provider: Sushil Figueroa ED Provider: Bill Joseph [place] Meds and New Rx's Prescriptions: Continued trazodone 150 mg tablet 150 mg PO DAILY RF: 0 citalopram 40 mg tablet 40 mg PO DAILY RF: 0 losartan 25 mg tablet 25 mg PO DAILY RF: 0 oxazepam 10 MG capsule 10 mg PO BID RF: 0 aspirin [Aspir-81] 81 MG tablet,delayed release (DR/EC) 81 mg PO DAILY RF: 0 furosemide 20 MG tablet 20 mg PO BID RF: 0 spironolactone 50 MG tablet 50 mg PO BID RF: 0 epinephrine 0.3 MG/SYR auto-injector 0.3 mg IM DIRECTED PRNRF: 0 mirtazapine 15 MG tablet 7.5 mg PO HS RF: 0 atorvastatin [Lipitor] 40 MG tablet 40 mg PO QPM RF: 0 lactulose [Constulose] 10 GM/15 ML solution 45 gm PO TID RF: 0 Levemir U-100 Insulin 100 UNIT/ML solution 22 unit SQ DAILY RF: 0 lidocaine [Lidoderm] 1 PATCH patch 1 patch Topical Q24H Qty: 4 RF: 0 pantoprazole [Protonix] 20 mg Tablet,Delayed Release (Dr/Ec) 20 mg PO DAILY RF: 0 duloxetine [Cymbalta] 30 MG capsule,delayed release(DR/EC) 60 mg PO DAILY RF: 0 magnesium oxide 400 MG tablet 400 mg PO BID RF: 0 gabapentin 800 MG tablet 800 mg PO TID RF: 0 multivitamin 1 EACH capsule 1 ea PO DAILY RF: 0 insulin lispro [Humalog KwikPen Insulin] 100 UNIT/ML insulin pen 8 unit SQ AC RF: 0 thiamine mononitrate (vit B1) [Vitamin B-1 (mononitrate)] 100 MG tablet 100 mg PO DAILY RF: 0 Discharge Instructions Additional Instructions: follow up with your primary care provider as scheduled try to obstain from alcohol use if you have high fevers, difficulty breathing or feel more ill return to the emergency department Medical Decision Making 59 yo male with hx of chronic alcohol abuse, pancreatitis, chronic back pain comes in with continued lower back pain for 10 years and is unchanged. Denies urinary retention, weakness, n/v, fevers, abdominal pain. He was staying at his daughter's house and decided he felt he needed to be in a shelter so came here by ems. He denies recent falls, last had alcohol last night and currently is clinically sober, caox4 with clear speech and able to stand and pivot from ems stretcher to bed. No saddle anesthesia, no midline back pain. He is demanding something stronger for his pain than tylenol which I did not feel was appropriate. Had negative ct in October showing no AAA and no other concerning findings so do not feel emergent ct indicated and no indications to warrant mri. Will consult care management given his desire to go to shelter vs rehab pt remains hd stable. I spoke with care management Joselyn Davis and she advised given he has medicaid he may be able to get placed in rehab without a 3 day qualifying stay but would need negative covid19 test. When I informed Jackson of this he got upset, sat straight up in bed and waved his arms and stated get the fuck out of my room I don't need a covid test just get me back to my daughter's house if you aren't going to get me anything for pain. He continues to move all extremities well but will occasionally appear to not have movement in a limb but then gets upset and moves the extremities well. He did request an MRI and I advised it's not avaialable until later today but it's not emergently indicated but could see if they could fit him in but then he advised unless he got something stronger for pain he did not want to stay.I advised I did not feel comfortable treating his pain with opiates at this time and he declined any further therapies such as lidocaine patches. HE has capacity to make his own decisions, is clinically sober and denies meeting with care management in person and accepts risks of not going to rehab/shelter including falls which could result in and disability and is leaving against my advise prior to safest disposition. He will be d/c'd with rct and will have lift assist to get back in his daughter's house.He declines talking with CM for vna. I again offered to covid swab the patient to at least get this started in case he changes his mind, he sat up in med and then gave me the middle finger and still declines to meet with care management Differential Diagnosis Differential Diagnosis: chronic back pain, lumbago, djd HPI General Mode of arrival: EMS . Date/Time Provider Initiated Documentation: 12/13/19 05:39 . Limitations to Documentation: no limitations . Information obtained by: patient . History of Present Illness 59 year old M presents to the emergency department with the chief complaint of back pain, described as moderate, Patient started experiencing this year(s) (10) and it has been constant. No relieving factors improve symptom(s), No exacerbating factors reported . Patient did receive the following treatments prior to arrival, none Related Data Home Medications Medication Instructions Recorded Confirmed epinephrine 0.3 mg IM DIRECTED PRN 01/15/13 11/01/19 mirtazapine 7.5 mg PO HS 11/21/15 11/01/19 duloxetine [Cymbalta] 60 mg PO DAILY 04/06/16 11/01/19 Levemir U-100 Insulin 22 unit SQ DAILY 08/19/16 11/01/19 atorvastatin [Lipitor] 40 mg PO QPM 08/19/16 11/01/19 lactulose [Constulose] 45 gm PO TID 08/19/16 11/01/19 gabapentin 800 mg PO TID 11/19/16 11/01/19 insulin lispro [Humalog KwikPen 8 unit SQ AC 11/19/16 11/01/19 Insulin] magnesium oxide 400 mg PO BID 11/19/16 11/01/19 multivitamin 1 ea PO DAILY 11/19/16 11/01/19 thiamine mononitrate (vit B1) 100 mg PO DAILY 11/19/16 11/01/19 [Vitamin B-1 (mononitrate)] aspirin [Aspir-81] 81 mg PO DAILY tab-cap 03/15/17 11/01/19 furosemide 20 mg PO BID tab-cap 03/15/17 11/01/19 oxazepam 10 mg PO BID 03/15/17 11/01/19 spironolactone 50 mg PO BID tab-cap 03/15/17 11/01/19 citalopram 40 mg tablet 40 mg PO DAILY 06/08/18 11/01/19 losartan 25 mg tablet 25 mg PO DAILY 06/08/18 11/01/19 trazodone 150 mg tablet 150 mg PO DAILY 06/08/18 11/01/19 lidocaine [Lidoderm] 1 patch TOPICAL Q24H #4 patch 10/30/18 11/01/19 pantoprazole [Protonix] 20 mg PO DAILY 11/01/19 11/01/19 Previous Rx's Medication Instructions Recorded lidocaine [Lidoderm] 1 patch TOPICAL Q24H #4 patch 10/30/18 Allergies Allergy/AdvReac Type Severity Reaction Status Date / Time venom-honey bee Allergy Severe signs of Unverified 11/01/19 07:31 stroke pregabalin [From Lyrica] Allergy Mild Unverified 11/01/19 07:31 varenicline tartrate AdvReac Unknown Nausea Unverified 11/01/19 07:31 [From Chantix] General Stated Complaint: Orthopedic SCOT: 4 Review of Systems All systems reviewed & are unremarkable except as noted in HPI and below Constitutional Constitutional: Denies chills, Denies fever(s) and Denies weakness Cardiovascular Cardiovascular: Denies chest pain and Denies dyspnea Respiratory Respiratory: Denies cough and Denies dyspnea Gastrointestinal Gastrointestinal: Denies abdominal pain, Denies nausea and Denies vomiting Musculoskeletal Musculoskeletal: Denies joint swelling Neurologic Neurologic: Denies weakness Psychiatric Psychiatric: Denies depression [facility] Medical History (Updated 12/13/19 @ 06:18 by Bill Joseph MD) Acute alcohol intoxication (Inactive) Alcohol dependence Arthritis Bilateral leg edema Chronic pain Cirrhosis of liver Depression Diabetes mellitus, type II Diabetic peripheral neuropathy Encephalopathy, hepatic GERD (gastroesophageal reflux disease) Hepatitis C Hyperlipidemia Hypertension Knee pain, right Opioid abuse TIA (transient ischemic attack) Ulnar neuropathy Surgical History H/O cervical spine surgery (Acute) Hx of total knee arthroplasty (Acute) Social History Smoking/Tobacco Use Status: Current every day Tobacco Type: cigarettes and e-cigarettes Alcohol Intake: current Alcohol Intake frequency: 3 or more drinks per day Drug use: Never Substance use type: marijuana Housing: apartment Number of Children: 3 What type of physical activity do you participate in: walking Do you feel safe at home: Yes Do you feel safe in your relationship?: Yes Exam Const General: no acute distress Orientation: alert HENMT Head: normal to inspection Ears: external ears normal General nose exam: external nose normal Mouth: moist mucous membranes Eyes General: appearance normal, both eyes and all related structures Neck Neck: normal visual inspection Resp Effort & Inspection: normal respiratory effort and able to speak in complete sentences Cardio Rate: regular rate Back/Spine/Pelvis Back: no CVA tenderness Skin General skin exam: no rashes or lesions noted Neuro General: patient alert and patient oriented x3 Extrem General: normal to inspection Psych Mental Status: mental status grossly normal Course Vital Signs Vital signs: Vital Signs Temperature 36.6 C 12/13/19 05:35 Pulse 69 12/13/19 05:35 Respiratory Rate 20 12/13/19 05:35 Blood Pressure 132/52 L 12/13/19 05:35 Pulse Oximetry 98 12/13/19 05:35 Temperature 36.6 C 12/13/19 05:35 Temperature Source Tympanic 12/13/19 05:35 Pulse 69 12/13/19 05:35 Respiratory Rate 20 12/13/19 05:35 Blood Pressure 132/52 L 12/13/19 05:35 Pulse Oximetry 98 12/13/19 05:35 Oxygen Delivery Method Room Air 12/13/19 05:35 Oxygen Flow Rate 0 12/13/19 05:35 Pain Level 8 12/13/19 05:35
[2019-12-13] MEDS: Acetaminophen 500 MG TAB 1000 MG PO (05:49)
--- NOTE | 2019-12-13 09:46 | PDOC.ERCMPRO ---
- If Service Date Differs Date of service: 12/13/19 Time of Service: 05:45 Care Management Progress Note CM contacted by ED provider re: Jackson's desire to go to a SNF. After reviewing chart, CM determined that he might be eligible since he has Medicaid and would not require a 3 night stay. Advised provider of same but also informed him that Jackson would need a negative Covid-19 test prior to admission. In addition, he may need a PT evaluation to determine if there is a skilled need for rehab. The provider informed Jackson of the above and he opted to leave AMA. Jackson also declined to remain to meet with CM regarding other options.
== END 2019-12-13 06:26 | disposition left against medical advice (07) ==
PROVIDERS: Emergency Provider Emergency Medicine; PCP Family Medicine
DX: M54.5 Low back pain (principal); G89.29 Other chronic pain; F10.10 Alcohol abuse, uncomplicated; Z53.29 Procedure and treatment not carried out because of patient's decision for other reasons; E11.9 Type 2 diabetes mellitus without complications; I10 Essential (primary) hypertension; F11.10 Opioid abuse, uncomplicated
CPT/HCPCS: 99283

== ENCOUNTER 2019-12-20 11:59 | Inpatient (IN) | payer MEDICAID, SELFPAY ==
--- NOTE | 2019-12-20 12:00 | RT.EKG_ITS ---
APPROVED REPORT Exam: Resting ECG Patient Location: E HR:82 bpm ECG Measurements Heart Rate 82 AXIS KS 142 P 70 QRSd 93 QRS 22 QT 405 T 80 QTc 472 Conclusion EKG 12: 51 Rate 82, QTc 472, intervals otherwise normal, no significant ST elevation or depression. No evidence of STEMI. Q waves are noted in lead III.
--- NOTE | 2019-12-20 12:00 | DI.RAD_ITS ---
EXAM: XR CHEST 2V PA LATERAL CLINICAL HISTORY: fall, sob TECHNIQUE: 2D digital imaging was performed. COMPARISON: CR CHEST 2 VIEWS PA,LAT from 11/17/2016 FINDINGS: There is poor inspiration. Heart size and pulmonary vasculature within normal limits. The lungs are clear. No pleural effusion or pneumothorax is present. Age-appropriate changes are seen in the spi ne. IMPRESSION: No acute pulmonary findings. DATA REPOSITORY: RADIATION DOSE DELIVERED:
--- NOTE | 2019-12-20 12:15 | W.ED.GENAD ---
Discharge Plan Disposition Patient Disposition: [facility] INPATIENT Condition: Stable Discharge Details Chief Complaint: PsychEval Clinical Impression: Fall, Suicidal ideation Primary Care Provider: Sushil Figueroa ED Provider: Blue Wiggins Home Meds and New Rx's Prescriptions: No Action trazodone 150 mg tablet 150 mg PO DAILY RF: 0 citalopram 40 mg tablet 40 mg PO DAILY RF: 0 losartan 25 mg tablet 25 mg PO DAILY RF: 0 oxazepam 10 MG capsule 10 mg PO BID RF: 0 aspirin [Aspir-81] 81 MG tablet,delayed release (DR/EC) 81 mg PO DAILY RF: 0 furosemide 20 MG tablet 20 mg PO BID RF: 0 spironolactone 50 MG tablet 50 mg PO BID RF: 0 epinephrine 0.3 MG/SYR auto-injector 0.3 mg IM DIRECTED PRNRF: 0 mirtazapine 15 MG tablet 7.5 mg PO HS RF: 0 atorvastatin [Lipitor] 40 MG tablet 40 mg PO QPM RF: 0 lactulose [Constulose] 10 GM/15 ML solution 45 gm PO TID RF: 0 Levemir U-100 Insulin 100 UNIT/ML solution 22 unit SQ DAILY RF: 0 lidocaine [Lidoderm] 1 PATCH patch 1 patch Topical Q24H Qty: 4 RF: 0 pantoprazole [Protonix] 20 mg Tablet,Delayed Release (Dr/Ec) 20 mg PO DAILY RF: 0 duloxetine [Cymbalta] 30 MG capsule,delayed release(DR/EC) 60 mg PO DAILY RF: 0 magnesium oxide 400 MG tablet 400 mg PO BID RF: 0 gabapentin 800 MG tablet 800 mg PO TID RF: 0 multivitamin 1 EACH capsule 1 ea PO DAILY RF: 0 insulin lispro [Humalog KwikPen Insulin] 100 UNIT/ML insulin pen 8 unit SQ AC RF: 0 thiamine mononitrate (vit B1) [Vitamin B-1 (mononitrate)] 100 MG tablet 100 mg PO DAILY RF: 0 Medical Decision Making 59-year-old male with a past medical history of chronic alcoholism, chronic back pain, high blood pressure, high cholesterol, type 2 diabetes, hepatitis C, GERD, previous TIA, who presents today for intoxication and suicidal ideations. Patient is a notably poor historian, and refuses most questioning, and is notably confrontational both with EMS, nursing staff, and myself. From what can be gleaned from history from EMS and from the few did bits that the patient is willing to discuss it appears that he was on the RCT plus, drank some alcohol this previous evening, may have fallen. Uncertain if he hit his head. Per EMS from [facility] it was not a hard fall. When EMS got there though the patient stating that he wanted to kill himself because I want to be done with all this shift, and I am going to do something. You will see what it is! He otherwise does not give any other hints as to his plan. He states that everything hurts you mother mario and does ascribe some difficulty to localization. He denies any other focal complaints at this time. I am unable to ascertain any additional review of systems secondary to a lack of patient compliance with gathering the HPI. Physical exam is also notably limited secondary to patient noncompliance. He does move all extremities, shows no focal weakness or focal deficits. No new midline tenderness of the cervical thoracic or lumbar spine. No signs of significant trauma to the head. C-collar was offered but patient refused and ripped the collar off. Out of an abundance of precaution we will get a CT scan of the head neck, chest x-ray, laboratory work-up and mental health screen. With his intoxication suspect that he will not be a candidate for mental health evaluation at this time. We will get a one-to-one observer, monitor closely and reassess 3:45 PM Laboratory work-up demonstrates hemoglobin of 12.1 which is within normal limits for him. Potassium is low at 3, you be given oral potassium. Will order magnesium. Acetaminophen negative salicylates negative, still pending urine drug screen. Initial alcohol was 226, however now after prolonged observation. Here the patient demonstrates notable clinical sobriety. Patient refused any additional exam at this time, he remains confrontational with myself, less so with nursing staff. We did start a consult again with mental health, they have assessed him, he is much more open with them, where he discusses that he would like admission that he can be placed in a mental health facility. Mental health agrees with this assessment. A safety plan will be performed with care management, we will reach out to the hospitalist for admission. Patient appears medically stable medically cleared at this time. Also of note the patient is getting up moving around sitting on the side of the bed without difficulty, no signs of neurologic deficit, no signs of overt traumatic etiologies either. 3:55 PM I contacted the hospitalist Dr. Allan, she agrees with the assessment and plan. Patient will be admitted while we await for bed placement. I have extensively reviewed the treatment plan with the patient. I have addressed all patient concerns at this time. I have also discussed the plan with the admitting physician and they agree with the current assessment and plan and have agreed to assume responsibility for the patient. All parties demonstrate verbal understanding and agreement with our assessment and plan at this time. EKG 12: 51 Rate 82, QTc 472, intervals otherwise normal, no significant ST elevation or depression. No evidence of STEMI. Q waves are noted in lead III. FINDINGS: CT Head: Ventricles and Extra axial spaces: Normal in size and morphology for the patient's age. Hemorrhage: None. Cerebral parenchyma: Normal. Midline shift: None. Brainstem/Cerebellum: Normal. Calvarium: Normal. Visualized Paranasal sinuses/Mastoids: Clear. Soft Tissues: Scalp hematoma overlying the left occipital bone. Patient motion artifact. CT Cervical Spine: Bones: No acute fracture or subluxation. Postsurgical changes in the cervical spine. Degenerative changes are seen in the spine. Soft Tissues: Unremarkable. Lung Apices: Clear. IMPRESSION: 1. No acute intracranial process. 2. Scalp hematoma overlying the left occipital bone. 3. No acute fracture or subluxation in the cervical spine. 4. Findings were discussed with the emergency department on the date of the examination. RADIATION DOSE DELIVERED: 1,380.51mGy.cm Total DLP DATA REPOSITORY: All CT scans at this facility are submitted to the National Radiology Data Registry (NRDR) Dose Index Registry (DIR) with the [employer] (A[employer]). RADIATION OPTIMIZATION: All CT scans at this facility use at least one of these dose optimization techniques: automated exposure control; mA and/or kV adjustment per patient size (includes targeted exams where dose is matched to clinical indication); or iterative reconstruction. HPI General Date/Time Provider Initiated Documentation: 12/20/19 12:02. HPI Narrative: 59-year-old male with a past medical history of chronic alcoholism, chronic back pain, high blood pressure, high cholesterol, type 2 diabetes, hepatitis C, GERD, previous TIA, who presents today for intoxication and suicidal ideations. Patient is a notably poor historian, and refuses most questioning, and is notably confrontational both with EMS, nursing staff, and myself. From what can be gleaned from history from EMS and from the few did bits that the patient is willing to discuss it appears that he was on the RCT plus, drank some alcohol this previous evening, may have fallen. Uncertain if he hit his head. Per EMS from [facility] it was not a hard fall. When EMS got there though the patient stating that he wanted to kill himself because I want to be done with all this shift, and I am going to do something. You will see what it is! He otherwise does not give any other hints as to his plan. He states that everything hurts you mother mario and does ascribe some difficulty to localization. He denies any other focal complaints at this time. I am unable to ascertain any additional review of systems secondary to a lack of patient compliance with gathering the HPI. Related Data Home Medications Medication Instructions Recorded Confirmed epinephrine 0.3 mg IM DIRECTED PRN 01/15/13 12/20/19 mirtazapine 7.5 mg PO HS 11/21/15 12/20/19 duloxetine [Cymbalta] 60 mg PO DAILY 04/06/16 12/20/19 Levemir U-100 Insulin 22 unit SQ DAILY 08/19/16 12/20/19 atorvastatin [Lipitor] 40 mg PO QPM 08/19/16 12/20/19 lactulose [Constulose] 45 gm PO TID 08/19/16 12/20/19 gabapentin 800 mg PO TID 11/19/16 12/20/19 insulin lispro [Humalog KwikPen 8 unit SQ AC 11/19/16 12/20/19 Insulin] magnesium oxide 400 mg PO BID 11/19/16 12/20/19 multivitamin 1 ea PO DAILY 11/19/16 12/20/19 thiamine mononitrate (vit B1) 100 mg PO DAILY 11/19/16 12/20/19 [Vitamin B-1 (mononitrate)] aspirin [Aspir-81] 81 mg PO DAILY tab-cap 03/15/17 12/20/19 furosemide 20 mg PO BID tab-cap 03/15/17 12/20/19 oxazepam 10 mg PO BID 03/15/17 12/20/19 spironolactone 50 mg PO BID tab-cap 03/15/17 12/20/19 citalopram 40 mg tablet 40 mg PO DAILY 06/08/18 12/20/19 losartan 25 mg tablet 25 mg PO DAILY 06/08/18 12/20/19 trazodone 150 mg tablet 150 mg PO DAILY 06/08/18 12/20/19 lidocaine [Lidoderm] 1 patch TOPICAL Q24H #4 patch 10/30/18 12/20/19 pantoprazole [Protonix] 20 mg PO DAILY 11/01/19 12/20/19 Previous Rx's Medication Instructions Recorded lidocaine [Lidoderm] 1 patch TOPICAL Q24H #4 patch 10/30/18 Allergies Allergy/AdvReac Type Severity Reaction Status Date / Time venom-honey bee Allergy Severe signs of Unverified 12/20/19 12:37 stroke pregabalin [From Lyrica] Allergy Mild Unverified 12/20/19 12:37 varenicline tartrate AdvReac Unknown Nausea Unverified 12/20/19 12:37 [From Chantix] General SCOT: 4 Review of Systems Unobtainable due to (Unable to obtain secondary to patient noncompliance) [facility] Medical History Acute alcohol intoxication (Inactive) Alcohol dependence Arthritis Bilateral leg edema Chronic pain Cirrhosis of liver Depression Diabetes mellitus, type II Diabetic peripheral neuropathy Encephalopathy, hepatic GERD (gastroesophageal reflux disease) Hepatitis C Hyperlipidemia Hypertension Knee pain, right Opioid abuse TIA (transient ischemic attack) Ulnar neuropathy Surgical History H/O cervical spine surgery (Acute) Hx of total knee arthroplasty (Acute) Social History Smoking/Tobacco Use Status: Current every day Tobacco Type: cigarettes and e-cigarettes Alcohol Intake: current Alcohol Intake frequency: 3 or more drinks per day Drug use: Daily Substance use type: marijuana Housing: apartment Number of Children: 3 What type of physical activity do you participate in: walking Do you feel safe at home: Yes Do you feel safe in your relationship?: Yes Exam Narrative Exam Narrative: 1.Const: Well-nourished, Well-developed, appearing stated age 2.Eyes: PERRL, no conjunctival injection, and symmetrical lids. 3.ENT: Atraumatic external nose and ears. Moist MM. Neck: Symmetric, trachea midline, No thyromegaly. 4.CVS: +S1/S2, No murmurs or gallops. Peripheral pulses 2+ and equal in all extremities. Brisk capillary refill in all extremities. 5.RESP: Unlabored respiratory effort. Clear to auscultation bilaterally. No wheezes rales or rhonchi 6.GI: Soft, Nontender/Nondistended, No hepatosplenomegaly. No guarding or rebound. 7.MSK: Normocephalic/Atraumatic, Extremities w/o deformity or ttp No cyanosis or clubbing, Normal movement of all extremities. No new reproducible midline cervical thoracic lumbar spine tenderness. 8.Skin: Warm, Dry. No rashes or lesions. 9.Neuro: clinical research scientist II-XII grossly intact. Sensation grossly intact, no focal neurologic deficits. 10.Psych: (AAO) x3. Appropriate mood and affect
[2019-12-20 12:16] VITALS: BP 134/92; PULSE 88; RESP 18; TEMP 36.7; O2SAT 97
[2019-12-20 12:49] LABS: Abs Immature Grans 0.03 10^3/uL (0.0-0.06); Absolute Basophil Count 0.02 10^3/uL (0.0-0.2); Absolute Eosinophil Count 0.02 10^3/uL (0.0-0.7); Absolute Lymphocyte Count 1.39 10^3/uL (1.2-3.4); Absolute Monocyte Count 0.64 10^3/uL (0.1-0.8); Absolute Neutrophil Count 6.89 10^3/uL (1.2-6.7); Basophils % 0.2; Eosinophils % 0.2; HCT 38.5 % (40.0-50.0); HGB 12.1 g/dL (13.5-17.5); Immature Grans % 0.3; Lymphocytes % 15.5; MCHC 31.4 % (32.0-36.0); MCV 76.4 fL (80-95); MPV 10.6 fL (8.0-11.0); Monocytes % 7.1; Neutrophils % 76.7; Nucleated RBC 0 %; RBC 5.04 10^6/uL (4.36-5.78); RDW 20.4 % (11.8-14.1); RDW-SD 55.8 fL; WBC 8.99 10^3/uL (4.4-10.8)
[2019-12-20 13:02] LABS: Anisocytosis 2+; Diff Comment RBC Morph Reviewed; Hypochromasia 2+; Microcytosis 3+; Platelet Count 110 10^3/uL (130-400)
[2019-12-20 13:05] LABS: Salicylate 7.2 mg/dL (2.8-20.0)
[2019-12-20 13:07] LABS: ALT 21 U/L (16-63); AST 23 U/L (15-37); Albumin 3.4 g/dL (3.4-5.0); Alkaline Phosphatase 75 U/L (46-116); Anion Gap 13.7 mmol/L (3-11); BUN 7 mg/dL (7-18); Bilirubin, Total 0.5 mg/dL (0.2-1.0); CO2 22.3 mmol/L (21.0-32.0); CREATININE 0.85 mg/dL (0.70-1.30); Calcium 8.3 mg/dL (8.5-10.1); Chloride 98 mmol/L (98-107); ETHANOL BLOOD 226.5 mg/dL (<3); Glucose 177 mg/dL (74-106); Sodium 134 mmol/L (136-145); TSH (W/Ref FT4) 0.33 uIU/mL (0.36-3.74); Total Protein 7.1 g/dL (6.4-8.2); Troponin I < 0.05 ng/mL (<0.06)
[2019-12-20] MEDS: Potassium Chloride 20 MEQ TABCR 40 MEQ PO (13:16)
[2019-12-20 13:17] LABS: Acetaminophen < 2 ug/mL (10-30)
[2019-12-20 13:23] LABS: FREE T4 1.04 ng/dL (0.76-1.46)
--- NOTE | 2019-12-20 14:14 | NUR.NOTE ---
PATIENT CONTINUES TO DECLINE CERVICAL COLLAR EVEN AFTER ADVISED NUMEROUS TIMES OF THE POSSIBLE NEGATIVE OUTCOME OF NOT DOING SO ESPECIALLY CONSIDERING THE FACT THAT HE IS COMPLAINING OF CERVICAL NECK PAIN. PATIENT INCONTINENT OF A LARGE AMOUNT OF URINE, WITH NO ATTEMPT TO NOTIFY STAFF THAT HE NEEDED TO VOID. PATIENT IS BELLIGERENT, BUT REMAINS IN BED AND IS REDIRECTABLE AT THIS TIME.
--- NOTE | 2019-12-20 14:40 | DI.CT_ITS ---
EXAM: CT HEAD CERVICAL SPINE WO CLINICAL HISTORY: fall, hit head, drunk. TECHNIQUE: Imaging Protocol: Axial computed tomography images with coronal and sagittal reformatted images were created and reviewed COMPARISON: CT CT HEAD CERVICAL SPINE WO from 10/31/2019 FINDINGS: CT Head: Ventricles and Extra axial spaces: Normal in size and morphology for the patient's age. Hemorrhage: None. Cerebral parenchyma: Normal. Midline shift: None. Brainstem/Cerebellum: Normal. Calvarium: Normal. Visualized Paranasal sinuses/Mastoids: Clear. Soft Tissues: Scalp hematoma overlying the left occipital bone. Patient motion artifact. CT Cervical Spine: Bones: No acute fracture or subluxation. Postsurgical changes in the cervical spine. Degenerative ch anges are seen in the spine. Soft Tissues: Unremarkable. Lung Apices: Clear. IMPRESSION: 1. No acute intracranial process. 2. Scalp hematoma overlying the left occipital bone. 3. No acute fracture or subluxation in the cervical spine. 4. Findings were discussed with the emergency department on the date of the examination. RADIATION DOSE DELIVERED: 1,380.51mGy.cm Total DLP DATA REPOSITORY: All CT scans at this facility are submitted to the National Radiology Data Registry (NRDR) Dose Index Registry (DIR) with the [employer] (ACR). RADIATION OPTIMIZATION: All CT scans at this facility use at least one of these dose optimization te chniques: automated exposure control; mA and/or kV adjustment per patient size (includes targeted exa ms where dose is matched to clinical indication); or iterative reconstruction.
--- NOTE | 2019-12-20 15:42 | PDOC.MHCN ---
Date of service: 12/20/19 Time of Service: 15:42 Mental Health Crisis Note Presenting Issue How did you arrive at the ED and why did you come: Jackson arrived to the ER today of his own choosing stating he was having thoughts of SI. Precipitating Factors Jackson reports that he wants to end it all. He presents as being in a great deal of pain which are affecting his responses but there are no signs of delusions that were observed. Disposition BEHAVIOR: Jackson is agitated and short with his answers. He appears to be in a great deal of pain and feels he is not being heard. He is clearly agitated. EYE CONTACT: Eye contact is poor as he looks to the ceiling except when he is clearly feeling like the questions being asked are ridiculous. MOOD: Agitated and irritated. AFFECT: Jackson scrunches his face in pain. He appears to be in pain. APPETITE: Jackson reported appetitie is poor. SLEEP(trouble falling/staying asleep: Jackson reported I could use some. Plan Jackson will be admitted while [facility] seeks a voluntary bed. Signature Clinician's Name/Title: Alyssia Hidalgo MS, [facility]
--- NOTE | 2019-12-20 15:55 | CMSP_ITS ---
- If Service Date Differs Date of service: 12/20/19 Time of Service: 15:55 Care Management Safety Plan Jackson presented to the ED stating that he wanted to end it all. He has a long history of chronic medical problems, alcoholism and occasional verbalizations of SI and has presented to the ED numerous times (6 times since 10/26/19). Jackson is also homeless. He has agreed to voluntary admission for SI.. Please note safety plan below to guide patient care. SAFETY PLAN: 1. Will remain on suicide precautions and in paper clothes. 2. Will remain in room under direct supervision of one-on-one staff at all times provided by [employer] nursing staff development coordinator. 3. May have paper cups, plates, finger foods as well as a cardboard spoon with which to eat meals. 4. Follow [facility] Management of the Admitted Behavioral Health Patient policy. 5. Comfort bath system only. 6. No personal belongings 7. No visitors. 8. Phone contact limited to legal mortician supplies sales representative. 9. Due to VOLUNTARY status, if patient wishes to leave [facility], the [facility] fur floor worker must be contacted to re-evaluate patient prior to patient exiting the building. If deemed appropriate for inpatient psychiatric care, safety plan will be established with patient, and care team, to adhere to patient goals, identify restrictions based on behavioral status, address nutrition, and determine allowed personal belongings, tools for hygiene and personal care. As well plan will determine level of activity including ambulation, level of supervision, visitors, and determine privileges based on level of acuity, behaviors and level of engagement by patient.
[2019-12-20 16:16] LABS: Magnesium 1.7 mg/dL (1.8-2.4)
--- NOTE | 2019-12-20 16:16 | HPE_ITS ---
Date of service: 12/20/19 Time of Service: 16:16 Assessment and Plan Assessment and plan (1) Alcohol intoxication: Status: Acute Assessment and plan: admit to med/surg, safety precautions, IV fluids, CI WA with lorazepam as needed, prophylactic thiamine for 3 days (2) Suicidal ideation: Status: Acute Assessment and plan: will keep under suicide watch and re-evaluate when sober, mental health following. will be held on an ICP until further evaluation (3) Hypokalemia: Status: Acute Assessment and plan: replete and follow, add magnesium to ED labs. (4) Chronic back pain: Status: Acute Assessment and plan: will likely need further investigation when cooperative. consider MRI, has had imagining 11/01/19 that demonstrates severe DJD with no evidence of fracture but has had more recent falls. reporting numbness to bilateral lower extremities: rectal tone good, will check post void residual bladder scan, MRI lumbar and thoracic spine to evaluate for cord compression. will schedule tylenol 650 mg bid, lidocaine patch, morphine 2 mg q4h prn severe breakthrough pain overnight until MRI. continue gabapentin (5) Fall: Status: Acute Assessment and plan: in setting of acute intoxication. will keep on fall precautions with sitter at bedside. PT evaluation tomorrow. (6) Hypertension: Status: None Assessment and plan: monitor, continue home medication, adjust as needed (7) Diabetes mellitus, type II: Status: None Assessment and plan: will check blood sugar ac/hs and provide sliding scale coverage, reports he has not been taking his insulin. will add A1C. (8) GERD (gastroesophageal reflux disease): Status: None Assessment and plan: pantoprazole daily (9) Discharge planning issues: Status: Acute Assessment and plan: case management following homeless ICP for safety until sober and reassessed. (10) Depression: Status: None Assessment and plan: decompensated, will continue home medications for now, will likely need inpatient psychiatric treatment. mental health following, behavioral safety plan in place. (11) Alcoholic cirrhosis of liver: Status: Acute Assessment and plan: liver functions stable, will continue lactulose spironalactone and monitor. (12) Opioid abuse: Status: None Assessment and plan: urine drug screen is negative. case discussed with Dr Byers who is in agreement History of Present Illness History of Present Illness Chief Complaint: fall, alcohol intoxication Narrative: This is a 59 year old male well known to [facility] ED with frequent visits for falls associated with ETOH who presented today after falling on the [facility] bus. there was no reported LOC. He's refusing full physical examination and is belligerent. He did agree to a head/cspine CT and general labs in the ED and found to have a scalp hematoma and ETOH of 226. no other significant findings but had refused a full physical exam per record. He underwent a mental health evaluation by video conferencing and was originally recommended for voluntary admission under suicidal watch while awaiting a psychiatric bed but will be kept on an ICP for now until he is medically cleared and undergoes further mental health evaluation. He is being admitted to med/surg for further evaluation and monitoring. Review of Systems Constitutional Constitutional: Denies fever(s) and Reports weakness ENT Ears, Nose, Mouth, and Throat: Reports disequilibrium Cardiovascular Cardiovascular: Denies chest pain and Denies dyspnea Respiratory Respiratory: Denies cough and Denies dyspnea Gastrointestinal Gastrointestinal: Denies abdominal pain and Denies nausea Musculoskeletal Musculoskeletal: Reports abnormal gait, Reports back pain (reports as severe), Reports muscle weakness (bilateral lower extremities) and Reports numbness ( bilateral lower extremities) Neurologic Neurologic: Reports abnormal gait, Reports numbness (bilateral lower extremities), Reports radicular pain (bilaterally), Denies seizure-like activity, Reports disequilibrium and Reports weakness Psychiatric Psychiatric: Reports depression, Reports hopelessness, Reports irritability and Reports suicidal ideation (states he doesnt want to go on like this (back pain), no plan) [facility] Medical History Acute alcohol intoxication (Inactive) Alcohol dependence Arthritis Bilateral leg edema Chronic pain Cirrhosis of liver Depression Diabetes mellitus, type II Diabetic peripheral neuropathy Encephalopathy, hepatic GERD (gastroesophageal reflux disease) Hepatitis C Hyperlipidemia Hypertension Knee pain, right Opioid abuse TIA (transient ischemic attack) Ulnar neuropathy Surgical History H/O cervical spine surgery (Acute) Hx of total knee arthroplasty (Acute) Social History Smoking/Tobacco Use Status: Current every day Tobacco Type: cigarettes and e- cigarettes Alcohol Intake: current Alcohol Intake frequency: 3 or more drinks per day Drug use: Daily Substance use type: marijuana Housing: apartment Number of Children: 3 What type of physical activity do you participate in: walking Do you feel safe at home: Yes Do you feel safe in your relationship?: Yes Meds Home Medications and Allergies Home Medications Medication Instructions Recorded Confirmed Type epinephrine 0.3 mg IM DIRECTED PRN 01/15/13 12/20/19 History mirtazapine 7.5 mg PO HS 11/21/15 12/20/19 History duloxetine [Cymbalta] 60 mg PO DAILY 04/06/16 12/20/19 History Levemir U-100 Insulin 22 unit SQ DAILY 08/19/16 12/20/19 History atorvastatin [Lipitor] 40 mg PO QPM 08/19/16 12/20/19 History lactulose [Constulose] 45 gm PO TID 08/19/16 12/20/19 History gabapentin 800 mg PO TID 11/19/16 12/20/19 History insulin lispro [Humalog KwikPen 8 unit SQ AC 11/19/16 12/20/19 History Insulin] magnesium oxide 400 mg PO BID 11/19/16 12/20/19 History multivitamin 1 ea PO DAILY 11/19/16 12/20/19 History thiamine mononitrate (vit B1) 100 mg PO DAILY 11/19/16 12/20/19 History [Vitamin B-1 (mononitrate)] aspirin [Aspir-81] 81 mg PO DAILY tab-cap 03/15/17 12/20/19 History furosemide 20 mg PO BID tab-cap 03/15/17 12/20/19 History oxazepam 10 mg PO BID 03/15/17 12/20/19 History spironolactone 50 mg PO BID tab-cap 03/15/17 12/20/19 History citalopram 40 mg tablet 40 mg PO DAILY 06/08/18 12/20/19 History losartan 25 mg tablet 25 mg PO DAILY 06/08/18 12/20/19 History trazodone 150 mg tablet 150 mg PO DAILY 06/08/18 12/20/19 History lidocaine [Lidoderm] 1 patch TOPICAL Q24H #4 patch 10/30/18 12/20/19 Rx pantoprazole [Protonix] 20 mg PO DAILY 11/01/19 12/20/19 History Allergies Allergy/AdvReac Type Severity Reaction Status Date / Time venom-honey bee Allergy Severe signs of Unverified 12/20/19 12:37 stroke pregabalin [From Lyrica] Allergy Mild Unverified 12/20/19 12:37 varenicline tartrate AdvReac Unknown Nausea Unverified 12/20/19 12:37 [From Chantix] Exam Const General: no acute distress, disheveled, frail appearing and ill appearing chronically Nutritional Appearance: average body habitus Orientation: alert, awake and oriented x3 Limitations: behavioral limitations HENMT Head: normal to inspection, normocephalic and atraumatic Mouth: moist mucous membranes abnormal (slightly dry) Chest Chest: normal inspection of the chest Resp Effort & Inspection: normal respiratory effort Auscultation: clear to auscultation bilaterally Cardio Rate: regular rate Rhythm: regular rhythm GI Inspection: normal to inspection Palpation: soft Auscultation: normal bowel sounds General: bimanual renal exam normal bilaterally (good rectal tone, hemacult negative) Back/Spine/Pelvis Back: back tenderness (upper and lower on palpation, no significant pain over mid thoracic) Skin General skin exam: other (tattoos) Neuro General: patient alert, patient awake and patient oriented x3 Extrem General: normal to inspection and full ROM Results Labs Result diagrams: 12/21/19 06:55 12/21/19 06:55 Labs: Laboratory Results - last 24 hr 12/20/19 12/20/19 12/20/19 12:25 12:25 12:25 WBC 8.99 RBC 5.04 Hgb 12.1 L Hct 38.5 L MCV 76.4 L MCH 24.0 L MCHC 31.4 L RDW 20.4 H Plt Count 110 L MPV 10.6 Immature Gran % 0.3 Neutrophils % 76.7 Lymphocytes % 15.5 Monocytes % 7.1 Eosinophils % 0.2 Basophils % 0.2 Nucleated RBC % 0 Absolute Neutrophils 6.89 H Absolute Lymphocytes 1.39 Absolute Monocytes 0.64 Absolute Eosinophils 0.02 Absolute Basophils 0.02 RBC Morphology See below Hypochromasia 2+ Anisocytosis 2+ Microcytosis 3+ Sodium 134 L Potassium 3.0 L Chloride 98 Carbon Dioxide 22.3 Anion Gap 13.7 H BUN 7 Creatinine 0.85 Estimated GFR/1.73 m2 >= 60.00 Glucose 177 H Calcium 8.3 L Magnesium Total Bilirubin 0.5 AST 23 ALT 21 Alkaline Phosphatase 75 Troponin I < 0.05 Total Protein 7.1 Albumin 3.4 TSH 0.33 L Free T4 1.04 Salicylates 7.2 Acetaminophen < 2 Ethyl Alcohol 226.5 12/20/19 12:25 WBC RBC Hgb Hct MCV MCH MCHC RDW Plt Count MPV Immature Gran % Neutrophils % Lymphocytes % Monocytes % Eosinophils % Basophils % Nucleated RBC % Absolute Neutrophils Absolute Lymphocytes Absolute Monocytes Absolute Eosinophils Absolute Basophils RBC Morphology Hypochromasia Anisocytosis Microcytosis Sodium Potassium Chloride Carbon Dioxide Anion Gap BUN Creatinine Estimated GFR/1.73 m2 Glucose Calcium Magnesium 1.7 L Total Bilirubin AST ALT Alkaline Phosphatase Troponin I Total Protein Albumin TSH Free T4 Salicylates Acetaminophen Ethyl Alcohol Last Vital Signs Temp 36.7 C 12/20/19 12:16 Pulse 88 12/20/19 12:16 Resp 18 12/20/19 12:16 BP 134/92 H 12/20/19 12:16 Pulse Ox 97 12/20/19 12:16 COVID-19 Screening Have you,or household,traveled outside [place] in last 14 days?: No Had IN PERSON contact w/suspected or confirmed C-19 person: No
[2019-12-20 17:35] LABS: *AMPHETAMINES SCREEN URINE Negative (Negative); *BARBITURATES SCREEN URINE Negative (Negative); *BENZODIAZEPINES SCREEN URINE Negative (Negative); Cannabinoids THC Negative (Negative); Cocaine Screen,Urine Negative (Negative); METHADONE URINE SCREEN Negative (Negative); OPIATES URINE SCREEN Negative (Negative)
[2019-12-20] MEDS: Normal Saline Flush 10 ML SYR IVP (18:01)
[2019-12-20 18:09] LABS: Tricyclic Antidepressants Negative (Negative)
[2019-12-20] MEDS: Lidocaine 5% Patch 1 PATCH TP (18:23)
[2019-12-20 18:32] VITALS: BP 97/65; PULSE 96; RESP 18; TEMP 38.6; O2SAT 93
[2019-12-20] MEDS: MAGNESIUM SULFATE 2 GM/50 ML BAG IVPB (18:58)
[2019-12-20] MEDS: Atorvastatin 40 MG TAB PO (20:03)
[2019-12-20] MEDS: Gabapentin 800 MG TAB PO (20:03)
[2019-12-20] MEDS: Acetaminophen 325 MG TAB 650 MG PO (20:03)
[2019-12-20] MEDS: Lactulose 20 GM/30 ML CUP 45 GM PO (20:04)
[2019-12-20] MEDS: Spironolactone 50 MG TAB PO (20:05)
[2019-12-20] MEDS: Oxazepam 10 MG CAP PO (20:05)
[2019-12-20] MEDS: Magnesium Oxide 400 MG TAB PO (20:05)
[2019-12-20] MEDS: Mirtazapine 15 MG TAB 7.5 MG PO (21:07)
[2019-12-20] MEDS: traZODone 100 MG TAB 150 MG PO (21:08)
--- NOTE | 2019-12-21 | DI.MRI_ITS ---
EXAM: MR LUMBAR SPINE WO/W CLINICAL HISTORY: back pain, fever. TECHNIQUE: Multiplanar multisequence MRI of the Lumbar Spine was performed. CONTRAST MATERIAL: IV Contrast: 17 mL of Dotarem contrast administered. COMPARISON: MR MR lumbar spine wo from 03/09/2018 FINDINGS: Bones: The last intervertebral disc space is designated the L5/S1 level for the numbering purpose of this examination. The vertebral body heights are well maintained. Alignment is satisfactory. Degener ative endplate signal changes are seen from L2-3 through L4-L5. Cord: The conus tip ends at the T12 level. It is of normal size and signal intensity. T12-L1: No disc herniations or bulges are present. No central spinal canal or neural foraminal stenos is. L1-2: No disc herniations or bulges are present. No central spinal canal or neural foraminal stenosis . L2-3: Diffuse disc bulge. Mild central spinal canal stenosis. Moderate bilateral neural foraminal wally nosis. L3-4: Diffuse disc bulge. Degenerative changes of the facets. Moderately severe central spinal canal stenosis. Moderate right and moderately severe left neural foraminal stenosis. L4-5: Diffuse disc bulge. Degenerative changes of the facets. No central spinal canal stenosis. Mild right moderately and severe left neural foraminal stenosis. L5-S1: No disc herniations or bulges are present. No central spinal canal or neural foraminal stenosi s.Degenerative changes of the facets. Soft tissues: The visualized SI joints and sacrum are well maintained. The paraspinal soft tissues ar e unremarkable. There is no evidence of suspicious enhancement. No focal fluid collection is seen to suggest an epidu ral abscess. IMPRESSION: 1. Multilevel degenerative changes in the lumbar spine resulting in central spinal canal and neural f oraminal stenosis. 2. No focal fluid collection is seen to suggest an epidural abscess. DATA REPOSITORY:
--- NOTE | 2019-12-21 | DI.MRI_ITS ---
EXAM: MR THORACIC SPINE WO/W CLINICAL HISTORY: pain, trauma, fever, numbness. TECHNIQUE: Multiplanar multisequence MRI of the Thoracic spine was performed. CONTRAST MATERIAL: IV Contrast: 17 mL of Dotarem contrast administered. COMPARISON: No exams were available for comparison FINDINGS: Bones: The vertebral body heights are well maintained. Alignment is satisfactory. The signal characte ristics are unremarkable. Postsurgical changes seen in the lower cervical and upper thoracic spine. Cord: The thoracic cord is normal size and signal intensity. No intrinsic cord lesion is present. Discs: No disc herniation or bulge is present. No significant central spinal canal or neural foramina l stenosis. Soft tissues: Normal. There is no evidence of suspicious enhancement. No evidence of epidural abscess. IMPRESSION: 1. No significant central spinal canal or neural foraminal stenosis. 2. No evidence of an epidural abscess. DATA REPOSITORY:
[2019-12-21] MEDS: POTASSIUM CHLORIDE/0.9% NACL 1,000 ML 100 MEQ IV (00:40)
--- NOTE | 2019-12-21 00:43 | NUR.NOTE ---
Nursing Note: Pt incont of green stool, amb to bathroom with 2a and walker, gait unsteady and pt had another BM once on the toilet. One back in bed pt became annoyed at the IV and refuses to be hooked up to IVF. Educated on importance of IVF and why he was getting them. PT cont to refuse IVF.
[2019-12-21 00:46] LABS: Hemoglobin A1C 5.9 % (<5.7)
[2019-12-21 00:53] LABS: Vitamin B12 359 pg/mL (193-986)
[2019-12-21 07:22] LABS: Abs Immature Grans 0.01 10^3/uL (0.0-0.06); Absolute Basophil Count 0.02 10^3/uL (0.0-0.2); Absolute Eosinophil Count 0.06 10^3/uL (0.0-0.7); Absolute Lymphocyte Count 1.95 10^3/uL (1.2-3.4); Absolute Monocyte Count 0.51 10^3/uL (0.1-0.8); Absolute Neutrophil Count 3.93 10^3/uL (1.2-6.7); Basophils % 0.3; Eosinophils % 0.9; HCT 36.5 % (40.0-50.0); HGB 11.5 g/dL (13.5-17.5); Immature Grans % 0.2; Lymphocytes % 30.1; MCHC 31.5 % (32.0-36.0); MCV 76.2 fL (80-95); MPV 10.9 fL (8.0-11.0); Monocytes % 7.9; Neutrophils % 60.6; Nucleated RBC 0 %; RBC 4.79 10^6/uL (4.36-5.78); RDW 20.8 % (11.8-14.1); RDW-SD 56.2 fL; WBC 6.48 10^3/uL (4.4-10.8)
[2019-12-21 07:24] LABS: ALT 21 U/L (16-63); AST 26 U/L (15-37); Albumin 3.3 g/dL (3.4-5.0); Alkaline Phosphatase 71 U/L (46-116); Anion Gap 9.9 mmol/L (3-11); BUN 8 mg/dL (7-18); Bilirubin, Total 0.7 mg/dL (0.2-1.0); CO2 22.1 mmol/L (21.0-32.0); CREATININE 1.03 mg/dL (0.70-1.30); Calcium 8.5 mg/dL (8.5-10.1); Chloride 104 mmol/L (98-107); Glucose 98 mg/dL (74-106); Potassium 4.3 mmol/L (3.5-5.1); Sodium 136 mmol/L (136-145); Total Protein 6.8 g/dL (6.4-8.2)
[2019-12-21 08:00] VITALS: BP 148/93; PULSE 74; RESP 17; TEMP 36.8; O2SAT 95
[2019-12-21] MEDS: Normal Saline 50 ML 200 ML (08:01)
[2019-12-21] MEDS: MORPHine 2 MG/ML SYR IVP ×3 (08:02→19:13)
[2019-12-21] MEDS: DULoxetine 30 MG CAP 60 MG PO (08:04)
[2019-12-21] MEDS: Lactulose 20 GM/30 ML CUP 45 GM PO (08:04)
[2019-12-21] MEDS: Oxazepam 10 MG CAP PO ×2 (08:05→20:01)
[2019-12-21] MEDS: Gabapentin 800 MG TAB PO ×3 (08:05→19:58)
[2019-12-21] MEDS: Losartan 25 MG TAB PO (08:05)
[2019-12-21] MEDS: Spironolactone 50 MG TAB PO ×2 (08:05→20:01)
[2019-12-21] MEDS: Acetaminophen 325 MG TAB 650 MG PO ×2 (08:05→19:59)
[2019-12-21] MEDS: Magnesium Oxide 400 MG TAB PO ×2 (08:05→20:01)
[2019-12-21] MEDS: Multivitamin TAB 1 TAB PO (08:05)
[2019-12-21] MEDS: Aspirin E.C. 81 MG TABEC PO (08:06)
[2019-12-21] MEDS: Citalopram 20 MG TAB 40 MG PO (08:06)
[2019-12-21] MEDS: Pantoprazole 20 MG TABCR PO (08:06)
[2019-12-21 09:30] LABS: INR 1.1 (0.9-1.1); Prothrombin Time 10.6 sec (9.3-11.0)
[2019-12-21 09:30] LABS: Anisocytosis 1+; Diff Comment RBC Morph Reviewed; Hypochromasia 1+; Microcytosis 1+; Platelet Count 87 10^3/uL (130-400)
[2019-12-21 09:48] LABS: COVID-19 RT-PCR UVMMC Result Negative (Negative)
--- NOTE | 2019-12-21 10:29 | IN_ITS ---
Date of service: 12/21/19 Time of Service: 10:29 PT Notes Visit Reasons: DEPRESSION, SUICIDAL IDEATION Physical Therapy Inpatient Initial Evaluation Date: 12/21/2019 Referring Doctor: Renate Hyde NP PT Orders: PT CONSULT: History of DJD with chronic back pain and multiple falls, EtOH Precautions: On suicide precautions. Fall precautions. Standard precautions. Activity as tolerated. Patient Profile/Admitting Diagnosis: Jackson is a 59-year-old male admitted on 12/20/2019 with diagnosis of sedation, suicidal ideation, high kalemia, exacerbation of low back pain, fall and alcoholic cirrhosis of liver. PMHX: Medical History Acute alcohol intoxication (Inactive) Alcohol dependence Arthritis Bilateral leg edema Chronic pain Cirrhosis of liver Depression Diabetes mellitus, type II Diabetic peripheral neuropathy Encephalopathy, hepatic GERD (gastroesophageal reflux disease) Hepatitis C Hyperlipidemia Hypertension Knee pain, right Opioid abuse TIA (transient ischemic attack) Ulnar neuropathy Surgical History H/O cervical spine surgery (Acute) Hx of total knee arthroplasty (Acute) Social History/Home Situation: Jackson claims that he is homeless at the moment. Equipment Owned/DME: None Subjective: Jackson reports feeling weak, fatigued, and unsure of what this can happen in the future for him. He reports having pain all over and needed encouragement to participate in today's PT consult. Objective: General Observation: In paper clothing. Telemetry monitoring in place. Mental Status: Alert and is able to follow instructions Pain: Unquantified generalized body pain ROM: Right Upper Extremity: Shoulder Flexion allows lacks about 50% of AROM . Shoulder abduction lacks about 50% of AROM. Elbow flexion WFL. Wrist flexion WFL. Opening and closing of hand WFL. Left Upper Extremity: Shoulder Flexion allows lacks about 50% of AROM . Shoulder abduction lacks about 50% of AROM. Elbow flexion WFL. Wrist flexion WFL. Opening and closing of hand WFL. Right Lower Extremity: Hip flexion lacks about 25% of AROM. Hip abduction lacks about 25% of AROM. Knee flexion lacks about 25% of AROM. Ankle dorsiflexion lacks about 25% of AROM. Ankle plantarflexion lacks about 25% of AROM. Left Lower Extremity: Hip flexion lacks about 25% of AROM. Hip abduction lacks about 25% of AROM. Knee flexion lacks about 25% of AROM. Ankle dorsiflexion lacks about 25% of AROM. Ankle plantarflexion lacks about 25% of AROM. Strength: Right Upper Extremity: Shoulder flexors 3-/5. Shoulder abductors 3-/5. Elbow flexors 3+/5. Elbow extensors 3+/5. Operator Catalyst Concentration weak but functional. Left Upper Extremity: Shoulder flexors 3-/5. Shoulder abductors 3-/5. Elbow flexors 3+/5. Elbow extensors 3+/5. Operator Catalyst Concentration weak but functional. Right Lower Extremity: Hip flexors 3-/5. Hip abductors 3-/5. Knee flexors 3-/5. Knee extensors 3-/5. Ankle dorsiflexors 3-/5. Ankle plantarflexors 3-/5. Left Lower Extremity:Hip flexors 3-/5. Hip abductors 3-/5. Knee flexors 3-/5. Knee extensors 3-/5. Ankle dorsiflexors 3-/5. Ankle plantarflexors 3-/5. Sensation: Diminished as to pain and pressure on bilateral lower extremities. Bed Mobility/Transfers: Rolling moderate assist Supine to sit moderate assist Sit to supine moderate assist Sit to stand minimal assist of 2, moderate cueing required for safe technique Stand to sit minimal assist of 2, moderate cueing required for safe technique Bed to chair minimal assist of 2, moderate cueing required for safe technique Chair to bed minimal assist of 2, moderate cueing required for safe technique Gait: 40 feet using front wheeled walker with full weight bearing with minimal assist of 2 for safety with patient demonstrating unsteady shaky legs with decreased step height and decrease step length. Impulsive and unsafe. Reports increased fatigue and generalized body pain after activity. Balance: Static Sitting: Normal Dynamic Sitting: Good Static Standing: Poor Dynamic Standing: Poor Special Tests: Mobility Limitations Standardized Measure [facility] AM-PAC 6 clicks Basic Mobility Inpatient Short Form: Raw Score: 12 CMS Score: 69% deficit Informed Consent/Education: Patient instructed in purpose of PT consult and plan of care. Assessment: Jackson demonstrates significant functional mobility decline requiring extensive physical assistance and use of front wheeled walker for all mobility ADL performance, decreased sensation in bilateral lower extremities, unsteadiness of gait, difficulty with walking, and generalized weakness resulting from admitting diagnoses. Jackson is a 59-year-old male admitted on 12/20/2019 with diagnosis of sedation, suicidal ideation, high kalemia, exacerbation of low back pain, fall and alcoholic cirrhosis of liver. Patient presents with clinical signs and symptoms consistent with current/admitting diagnoses that have resulted to mobility limitations, gait instability, generalized weakness, and impairment of motor control as demonstrated by the following impairment level findings: 1. Decreased strength to B UE/LE major muscle groups 2. Impaired standing balance 3. Impaired activity tolerance 4. Limitation of joint range of motion in B UE/LE 5. Diminished sensation to bilateral lower extremities Impairments are contributing to the following functional limitations: 1. Dependent bed mobility skills 2. Increased dependence with transfers 3. Inability to safely ambulate without assistive device and physical assistance 4. Increase completion time for mobility ADL performance 5. Increased fall risk 6. Inability to negotiate steps alone safely Patient is assessed as a 67822 moderate complexity based on the following: History: 59-year-old male with impairment level findings, functional limita tions, and past medical history as indicated above Examination: Demonstrable impairment in strength, balance, and mobility level with underlying impairments and functional limitations as documented above Presentation:Evolving Decision Makin moderate complexity Goals: Goals X1 week 1. Supine-Sit independent 2. Sit-Supine independent 3. Sit-Stand contact-guard assist 4. Stand-Sit contact-guard assist 5. Bed-Chair contact-guard assist 6. Chair-Bed contact-guard assist 7. Contact-guard assist gait on level surface with use of least restrictive device for at least 300 feet without report of pain nor dyspnea 8. Good static and dynamic standing balance/tolerance Plan of Care/Treatment Plan: 1-2x/day, 7 days/week x 1 week. Plan of care has been reviewed with the FISH CLEANER MACHINE TENDER providing the service under Physical Therapy direction. Initiate Physical Therapy intervention for strengthening, bed mobility, transfers, gait, stairs, balance training, use of assistive device. DISCHARGE RECOMMENDATIONS: May benefit from intermediate facility placement for strengthening and balance retraining. TREATMENT CODE/TIME: 04685 x 21 minutes beginning at 10:29 AM. Thank you for the opportunity to participate in the care of this patient. Adela Meraz PT, DPT, CLT [facility] [place], [place]
--- NOTE | 2019-12-21 11:35 | W.INDIABCONS ---
Date of service: 12/21/19 Time of Service: 11:36 Diabetes Inpatient Consult DESCRIPTION/ASSESSMENT: Received Diabetes Inpatient referral for aJckson. Not appropriate for education at this time in view of admission s/p fall with ETOH intoxication with suicidal ideation. Attempted to meet with Jackson today but he declined education. Jackson is homeless with long hx of polysubstance abuse, DM2 and HTN. Meds include novolog sliding scale with good glycemic control. A1C 5.9% (12/20/19) indicating well controlled DM prior to admission. INTERVENTION: continue Diabetes Diet will provide education when receptive. PLAN: Will continue to monitor po intake, labs and weight Time Spent in Nutritional Counseling and Treatment: 0 time spent face to face
[2019-12-21] MEDS: Gadoterate meglumine 20 ML VIAL IVP (13:00)
--- NOTE | 2019-12-21 15:14 | PGE_ITS ---
Date of Service Date of service: 12/21/19 Time of Service: 15:14 Assessment and Plan Assessment and plan (1) Fever: Status: Acute Assessment and plan: one time reading last evening, blood cultures obtained today, no rashes, no respiratory symptoms with clear CXR. MRI shows no abscess. continue to look for source of infection (2) Ambulatory dysfunction: Status: Acute Assessment and plan: with multiple recent falls in setting of intoxication and spinal stenosis with bilateral leg numbness. PT following, will likely need rehabilitation. (3) Alcohol intoxication: Status: Acute Assessment and plan: resolved, No signs of withdrawal, continue safety precautions, taking good po so will d/c IV fluids, continue CIWA with lorazepam as needed, prophylactic thiamine day 2/3 days (4) Suicidal ideation: Status: Acute Assessment and plan: denies suicidal ideation at this time, mental health evaluation today pending now medically cleared. (5) Hypokalemia: Status: Acute Assessment and plan: normalized after repletion, continue to follow and replete as needed. (6) Chronic back pain: Status: Acute Assessment and plan: no acute findings on MRI. will need outpatient referral to pain clinic and spine still reporting baseline numbness to bilateral lower extremities, will check post void residual bladder scan, MRI lumbar and thoracic spine with no evidence of abscess or cord compression. will schedule tylenol 650 mg bid, lidocaine patch, stop morphine 2 mg q4h prn severe breakthrough pain. continue gabapentin. (7) Hypertension: Status: None Assessment and plan: monitor, continue home medication, adjust as needed (8) Diabetes mellitus, type II: Status: None Assessment and plan: will check blood sugar ac/hs and provide sliding scale coverage, reports he has not been taking his insulin. A1C 5.9, no basal insulin, continue carb controlled diet and coverage as needed. (9) GERD (gastroesophageal reflux disease): Status: None Assessment and plan: pantoprazole daily (10) Depression: Status: None Assessment and plan: decompensated but improved now sober, will continue home medications for now. mental health following, behavioral safety plan in place until formally cleared by mental health. (11) Alcoholic cirrhosis of liver: Status: Acute Assessment and plan: liver functions stable, will continue lactulose spironalactone and monitor. (12) Opioid abuse: Status: None Assessment and plan: urine drug screen is negative. (13) Discharge planning issues: Status: Acute Assessment and plan: case management following homeless ambulatory dysfunction: may require rehabilitation, PT evaluation and recommendations referrals to be placed. case discussed with Dr Byers who is in agreement Subjective Subjective Patient reports: feels better, still having pain, tolerating liquids well, tolerating a regular diet, voiding w/o difficulty, bowel movement and afebrile Interval history since last seen: max temp yesterday 38.6 per record. no fever today. no c/o cough, abdominal pain, dysuria, rash or other source of infection. only c/o is chronic back pain and bilateral leg numbness. Exam Const General: no acute distress, disheveled, frail appearing and ill appearing chronically Nutritional Appearance: average body habitus Orientation: alert, awake and oriented x3 Limitations: behavioral limitations HENMT Head: normal to inspection, normocephalic and atraumatic Mouth: moist mucous membranes abnormal (slightly dry) Chest Chest: normal inspection of the chest Resp Effort & Inspection: normal respiratory effort Auscultation: clear to auscultation bilaterally Cardio Rate: regular rate Rhythm: regular rhythm GI Inspection: normal to inspection Palpation: soft Auscultation: normal bowel sounds General: bimanual renal exam normal bilaterally (good rectal tone, hemacult negative) Back/Spine/Pelvis Back: back tenderness (upper and lower on palpation, no significant pain over mid thoracic) Skin General skin exam: other (tattoos) Neuro General: patient alert, patient awake and patient oriented x3 Extrem General: normal to inspection and full ROM Objective Objective Clinical Data: Abnormal lab results 12/20/19 12/20/19 12/21/19 Range/Units 12:25 12:55 06:55 Hgb (13.5-17.5) g/dL Hct (40.0-50.0) % MCV (80-95) fL MCH (27.0-33.0) pg MCHC (32.0-36.0) % RDW (11.8-14.1) % Plt Count (130-400) 10^3/uL Hemoglobin A1c 5.9 H (<5.7) % Magnesium 1.7 L (1.8-2.4) mg/dL Albumin 3.3 L (3.4-5.0) g/dL 12/21/19 Range/Units 06:55 Hgb 11.5 L (13.5-17.5) g/dL Hct 36.5 L (40.0-50.0) % MCV 76.2 L (80-95) fL MCH 24.0 L (27.0-33.0) pg MCHC 31.5 L (32.0-36.0) % RDW 20.8 H (11.8-14.1) % Plt Count 87 L (130-400) 10^3/uL Hemoglobin A1c (<5.7) % Magnesium (1.8-2.4) mg/dL Albumin (3.4-5.0) g/dL Vital Signs Temperature 36.8 C 12/21/19 08:00 Temperature Source Tympanic 12/21/19 08:00 Pulse 74 12/21/19 08:00 Pulse Rhythm Regular 12/21/19 08:35 Respiratory Rate 17 12/21/19 08:00 Respiratory Effort Non-Labored 12/21/19 08:35 Respiratory Depth Normal 12/21/19 08:35 Respiratory Pattern Normal 12/21/19 08:35 Blood Pressure 148/93 H 12/21/19 08:00 Pulse Oximetry 95 12/21/19 08:00 Oxygen Delivery Method Room Air 12/21/19 08:00 Oxygen Flow Rate 0 12/21/19 08:00 Pain Level 9 12/21/19 08:05 Intake & Output 12/20/19 12/21/19 12/21/19 23:59 11:59 23:59 Intake Total 122.5 / 122.5 Balance 122.5 / 122.5 Weight 84.7 kg Intake: IV 122.5 / 122.5 Other: Comment Pt urinated in the toliet at the same time of liquid stool. UNable to assess color or amount. Stool Size Moderate Stool Characteristics Liquid Green Voiding Methods Toilet Laboratory Results WBC 6.48 10^3/uL (4.4-10.8) 12/21/19 06:55 RBC 4.79 10^6/uL (4.36-5.78) 12/21/19 06:55 Hgb 11.5 g/dL (13.5-17.5) L 12/21/19 06:55 Hct 36.5 % (40.0-50.0) L 12/21/19 06:55 MCV 76.2 fL (80-95) L 12/21/19 06:55 MCH 24.0 pg (27.0-33.0) L 12/21/19 06:55 MCHC 31.5 % (32.0-36.0) L 12/21/19 06:55 RDW 20.8 % (11.8-14.1) H 12/21/19 06:55 Plt Count 87 10^3/uL (130-400) L 12/21/19 06:55 MPV 10.9 fL (8.0-11.0) 12/21/19 06:55 Immature Gran % 0.2 12/21/19 06:55 Neutrophils % 60.6 12/21/19 06:55 Lymphocytes % 30.1 12/21/19 06:55 Monocytes % 7.9 12/21/19 06:55 Eosinophils % 0.9 12/21/19 06:55 Basophils % 0.3 12/21/19 06:55 Nucleated RBC % 0 % 12/21/19 06:55 Absolute Neutrophils 3.93 10^3/uL (1.2-6.7) 12/21/19 06:55 Absolute Lymphocytes 1.95 10^3/uL (1.2-3.4) 12/21/19 06:55 Absolute Monocytes 0.51 10^3/uL (0.1-0.8) 12/21/19 06:55 Absolute Eosinophils 0.06 10^3/uL (0.0-0.7) 12/21/19 06:55 Absolute Basophils 0.02 10^3/uL (0.0-0.2) 12/21/19 06:55 RBC Morphology See below 12/21/19 06:55 Hypochromasia 1+ 12/21/19 06:55 Anisocytosis 1+ 12/21/19 06:55 Microcytosis 1+ 12/21/19 06:55 PT 10.6 sec (9.3-11.0) 12/21/19 08:58 INR 1.1 (0.9-1.1) 12/21/19 08:58 Sodium 136 mmol/L (136-145) 12/21/19 06:55 Potassium 4.3 mmol/L (3.5-5.1) D 12/21/19 06:55 Chloride 104 mmol/L (98-107) 12/21/19 06:55 Carbon Dioxide 22.1 mmol/L (21.0-32.0) 12/21/19 06:55 Anion Gap 9.9 mmol/L (3-11) 12/21/19 06:55 BUN 8 mg/dL (7-18) 12/21/19 06:55 Creatinine 1.03 mg/dL (0.70-1.30) 12/21/19 06:55 Estimated GFR/1.73 m2 >= 60.00 (mL/min/1.73m2) 12/21/19 06:55 Glucose 98 mg/dL (74-106) D 12/21/19 06:55 Hemoglobin A1c 5.9 % (<5.7) H 12/20/19 12:55 Calcium 8.5 mg/dL (8.5-10.1) 12/21/19 06:55 Magnesium 2.0 mg/dL (1.8-2.4) 12/21/19 06:55 Total Bilirubin 0.7 mg/dL (0.2-1.0) 12/21/19 06:55 AST 26 U/L (15-37) 12/21/19 06:55 ALT 21 U/L (16-63) 12/21/19 06:55 Alkaline Phosphatase 71 U/L (46-116) 12/21/19 06:55 Troponin I < 0.05 ng/mL (<0.06) 12/20/19 12:25 Total Protein 6.8 g/dL (6.4-8.2) 12/21/19 06:55 Albumin 3.3 g/dL (3.4-5.0) L 12/21/19 06:55 Vitamin B12 359 pg/mL (193-986) 12/20/19 12:55 TSH 0.33 uIU/mL (0.36-3.74) L 12/20/19 12:25 Free T4 1.04 ng/dL (0.76-1.46) 12/20/19 12:25 Salicylates 7.2 mg/dL (2.8-20.0) 12/20/19 12:25 Urine Opiates Screen Negative (Negative) 12/20/19 16:52 Urine Methadone Screen Negative (Negative) 12/20/19 16:52 Acetaminophen < 2 ug/mL (10-30) 12/20/19 12:25 Ur Barbiturates Screen Negative (Negative) 12/20/19 16:52 Ur Tricyclics Screen Negative (Negative) 12/20/19 16:52 Ur Amphetamines Screen Negative (Negative) 12/20/19 16:52 U Benzodiazepines Scrn Negative (Negative) 12/20/19 16:52 Urine Cocaine Screen Negative (Negative) 12/20/19 16:52 Ur THC Screen Negative (Negative) 12/20/19 16:52 Ethyl Alcohol 226.5 mg/dL (<3) 12/20/19 12:25 COVID-19 PCR Negative (Negative) 12/20/19 16:55 Nasopharyn COVID-19 PCR Not Applicable 12/20/19 16:55 Ref Test Perform Site [facility] 12/20/19 16:55
[2019-12-21] MEDS: Normal Saline Flush 10 ML SYR IVP ×3 (15:19→19:11)
[2019-12-21 15:23] VITALS: BP 137/93; PULSE 80; RESP 20; TEMP 37.8; O2SAT 94
--- NOTE | 2019-12-21 16:13 | PDOC.CMIN ---
- If Service Date Differs Date of service: 12/21/19 Time of Service: 16:14 Care Management Initial Assess REASON FOR HOSPITALIZATION:: Depression, suicidal ideation. PAST MEDICAL HISTORY/PAST SURGICAL HISTORY:: Medical History: Acute alcohol intoxication (Inactive), Alcohol dependence,. Arthritis, Bilateral leg edema, Chronic pain, Cirrhosis of liver, Depression,. Diabetes mellitus, type II, Diabetic peripheral neuropathy, Encephalopathy, hepatic, GERD (gastroesophageal reflux disease), Hepatitis C, Hyperlipidemia, Hypertension, Knee pain, right, Opioid abuse, TIA (transient ischemic attack), and Ulnar neuropathy. Surgical History: H/O cervical spine surgery and Hx of total knee arthroplasty. PREVIOUS FUNCTIONAL STATUS/SOCIAL/FAMILY SUPPORTS:: Jackson is a 59 year old male who is disabled and is currently homeless. He has a long history of depression and alcohol use. He names his ex-girlfriend and his daughter as his supports. Jackson also has 2 adult sons and 4 grandchildren. Yesterday, when he presented to the ED, he reported being suicidal and was placed on suicide precautions. Jackson was intoxicated with a DEBRA of 226.5 at the time. Today, he met with [facility] crisis screener, via zoom and was cleared from a mental health perspective, as he is currently denying suicidal ideation. CURRENT FUNCTIONAL STATUS:: Jackson is lying in bed watching television with CM comes to meet with him. He is pleasant and shares he has been unable to properly care for himself over the past couple of years. He is requesting assistance with a SNF placement. CM will continue to follow. ADVANCE DIRECTIVES:: None on file. Has patient been provided with info about the portal/API?: Yes Did the patient sign up for the portal?: Yes (Previously enrolled.) CODE STATUS:: Full Code INSURANCE COVERAGE / FINANCIAL ISSUES:: Medicaid. CURRENT HOME/COMMUNITY SERVICES/EQUIPMENT:: Jackson ambulates with [facility]. He also has an electric wheelchair but it is currently broken. He denies community services. PRIMARY CARE PHYSICIAN:: Sushil Figueroa MD POTENTIAL DISCHARGE NEEDS:: Follow up appointment with PCP and SNF placement. PATIENT/FAMILY EDUCATION NEEDS:: Discharge instructions, limitations and follow up plan of care, including Ask Me Three and self management. ANTICIPATED BARRIERS TO DISCHARGE:: None. TRANSPORTATION:: To be determined dependent on disposition. PLAN:: Anticipate Jackson will be discharged to a SNF placement. He will follow up with his PCP and discharge plan of care as directed. CM will continue to support Jackson and discharge planning needs.
--- NOTE | 2019-12-21 16:46 | PDOC.MHCN ---
Date of service: 12/21/19 Time of Service: 15:15 Mental Health Crisis Note Presenting Issue How did you arrive at the ED and why did you come: Client went to the ED by himself. Client reported he was in a lot of pain, feeling suicidal and was intoxicated Precipitating Factors Client denies SI/HI at this time and there were no signs of delusion. Disposition BEHAVIOR: Client presented as affable. EYE CONTACT: Client was able to maintain good eye contact MOOD: Client was pleasant and polite AFFECT: Client presented with full affect APPETITE: Client reported he had good appetite SLEEP(trouble falling/staying asleep: Client reported he had trouble falling and/staying asleep. Plan Client has been cleared by Emergency Services in terms of mental health. Care Managers at [facility] will follow up with client to get him his needs such as a physical therapy and a residential if applicable. Signature Clinician's Name/Title: Ankita Briceno Emergency Services Clinician.
[2019-12-21 17:52] LABS: Bilirubin Negative (Negative); Blood Trace-intact (Negative); Clarity Clear (Clear); Glucose Negative (Negative); Ketones Negative (Negative); Leukocyte Esterase Moderate (Negative); Nitrite Negative (Negative)
[2019-12-21 18:11] LABS: Bacteria Many HPF (Negative); Epithelial Cells Negative HPF (Negative); WBC 20-50 HPF (0-5)
[2019-12-21 18:12] LABS: C & S Indicated? Yes; Casts Negative LPF (Negative); Crystals Moderate Amorphous HPF (Negative); Mucus Negative (Negative)
[2019-12-21] MEDS: Lidocaine 5% Patch 1 PATCH TP (18:15)
[2019-12-21 18:25] VITALS: BP 146/94; PULSE 80; RESP 20; TEMP 37.4; O2SAT 95
[2019-12-21] MEDS: Atorvastatin 40 MG TAB PO (19:59)
[2019-12-21 20:15] VITALS: BP 147/96; PULSE 84; RESP 20; TEMP 36.8; O2SAT 97
[2019-12-21] MEDS: traZODone 100 MG TAB 150 MG PO (20:53)
[2019-12-21] MEDS: Mirtazapine 15 MG TAB 7.5 MG PO (20:54)
[2019-12-21] MEDS: Nicotine 21 MG/24 HR PATCH TD (20:55)
[2019-12-21 22:02] VITALS: BP 153/97; PULSE 78; RESP 22; TEMP 36.3; O2SAT 153
--- NOTE | 2019-12-21 22:33 | NUR.NOTE ---
pt sleeping resting well. snoring. does slightly open eyes when spoken to.Nursing Note:
[2019-12-21 23:00] VITALS: BP 147/89; PULSE 88; RESP 19; TEMP 36.1; O2SAT 95
[2019-12-22 08:00] VITALS: BP 144/87; PULSE 67; RESP 20; TEMP 37.1; O2SAT 96
[2019-12-22] MEDS: Citalopram 20 MG TAB 40 MG PO (09:15)
[2019-12-22] MEDS: Magnesium Oxide 400 MG TAB PO (09:15)
[2019-12-22] MEDS: Acetaminophen 325 MG TAB 650 MG PO (09:15)
[2019-12-22] MEDS: Spironolactone 50 MG TAB PO (09:15)
[2019-12-22] MEDS: Oxazepam 10 MG CAP PO (09:15)
[2019-12-22] MEDS: DULoxetine 30 MG CAP 60 MG PO (09:15)
[2019-12-22] MEDS: Losartan 25 MG TAB PO (09:16)
[2019-12-22] MEDS: Lactulose 20 GM/30 ML CUP 45 GM PO (09:16)
[2019-12-22] MEDS: Gabapentin 800 MG TAB PO ×2 (09:16→13:40)
[2019-12-22] MEDS: Multivitamin TAB 1 TAB PO (09:16)
[2019-12-22] MEDS: Aspirin E.C. 81 MG TABEC PO (09:16)
[2019-12-22] MEDS: Pantoprazole 20 MG TABCR PO (09:16)
[2019-12-22] MEDS: MORPHine 2 MG/ML SYR IVP (11:22)
[2019-12-22] MEDS: Normal Saline Flush 10 ML SYR IVP (11:23)
[2019-12-22] MEDS: Insulin Aspart 300 UNITS/3 ML PEN SC (12:03)
--- NOTE | 2019-12-22 12:18 | PDOC.CMDIS ---
- If Service Date Differs Date of service: 12/22/19 Time of Service: 12:18 LACE Index Scoring Tool - Questions: Length of Stay (in days): 3 Acuity (Admit via E.D.?): Yes Comorbidities: Diabetes w/o Complication Care Management Discharge Reason for Hospitalization: Depression, suicidal ideation. Discharge Plan: Jackson is being discharged CM assisted patient is securing place to stay through [facility] services. He will be at the [facility] and has been approved for four nights. CM faxed referral to debora, pcp [facility], [facility], and chemical recovery operator for services and assistance with substance use, and housing. Jackson states he wants to stop using alcohol and is willing to meet with chemical recovery operator. CM coordinated a ride with [facility]. CM reviewed all referrals and expecations for follow up from community supports. Patient/Family Education Needs: Discharge education, limitations and follow up plan of care including ask me three and self management. Services Needed at Discharge: Transportation
--- NOTE | 2019-12-22 13:53 | DSE_ITS ---
Date of service: 12/22/19 Time of Service: 13:53 DS: Diagnosis Discharge Diagnosis (1) UTI (urinary tract infection): Start date: 12/22/19 Start time: 14:00 Status: Acute Asessment and Plan: U/a with moderate amount leuko estrase. Culture with enterococcus species greater than 100,000, given dose fosfamycin as unsure how compliant he would be with daily dosing or if he would fill the script, afebrile, no leukocytosis. Not retaining. (2) Fever: Start date: 12/22/19 Start time: 13:59 Status: Resolved Asessment and Plan: Resolved, Does have a UTI. Likely contributing to fever. (3) Suicidal ideation: Start date: 12/22/19 Start time: 14:02 Status: Resolved Asessment and Plan: Cleared by , will go back to his daughters house. Intoxicated at time of admission (4) Hypokalemia: Start date: 12/22/19 Start time: 14:02 Status: Resolved Asessment and Plan: Repleted with po potassium (5) Chronic back pain: Start date: 12/22/19 Start time: 14:03 Status: Chronic Asessment and Plan: Spinal cord compression r/o. He states back pain normal pain that he always has. MRI thoracic/lumbar spine with multilevel degenerative changes resulting in spinal stenosis (6) Hypertension: Start date: 12/22/19 Start time: 14:07 Status: None Asessment and Plan: Slightly elevated while in hospital, alcohol contributor. (7) Diabetes mellitus, type II: Start date: 12/22/19 Start time: 14:10 Status: None Asessment and Plan: A1C on this visit 5.9, On leveimer at home, question compliance. None the less will discharge home on previous medication for diabetes and defer to PCP for further management. (8) GERD (gastroesophageal reflux disease): Start date: 12/22/19 Start time: 14:11 Status: None Asessment and Plan: Continue home regimen (9) Depression: Start date: 12/22/19 Start time: 14:12 Status: None Asessment and Plan: States he is homeless. Lives with daughter though they don't get a long, he will be discharged back to her house. (10) Alcoholic cirrhosis of liver: Start date: 12/22/19 Start time: 14:13 Status: Acute Asessment and Plan: Continue spirlactone and lactulose and furosemide. Above case discussed with dr. byers who is in agreement. Discharge Plan Disposition Patient Disposition: OTHER Condition: Stable Discharge Details Chief Complaint: PsychEval Clinical Impression: Fall, Suicidal ideation Reason For Visit: DEPRESSION, SUICIDAL IDEATION Admit Date/Time: 12/22/19 07:45 Admit Provider: Brielle Byers Attending Provider: Brielle Byers Primary Care Provider: Sushil Figueroa ED Provider: [facility] Hospital Course Hospital Course: 59 year old male, well known to [facility] ED with frequent visits for falls associated with ETOH who presented after falling on the [facility] bus. NO LOC on admission, he was bellligerent and refusing physical exam on admission. Agreeable to CT of head with labs in ED he was found to have ETOH of 226, he did have a scalp hematoma otherwise labs unremarkable. evaluated him in the ED by video conference and recommended voluntary admission under suicide watch while awaiting psychiatric bed. He was admitted to /s for further eval. On admission he became febrile with tmax 38.6, no obvious source of infection identified, MRI spine revealing only stenosis, blood cultures with NGTD, he did have a positive u/a that cultures enteroccoccus greater than 100k, otherwise no leukocytosis, rash or associated symptoms. He was given a dose of fosfomyacin, he denies urinary symptoms or retention. He did not have any signs of withdrawal; after sobering up, reevaluated patient and felt he was safe no longer requiring suicidal precautions and did not meet criteria for placement. He does not meet SNIF criteria either. For this he is being discharged to his daughters house. He previously lived there but left and was living on the streets. He has agreed to go back to his daughters house with community services set up . He denies Cp, SOB, N/V/D. Home Meds and New Rx's Prescriptions: Continued trazodone 150 mg tablet 150 mg PO DAILY RF: 0 citalopram 40 mg tablet 40 mg PO DAILY RF: 0 losartan 25 mg tablet 25 mg PO DAILY RF: 0 oxazepam 10 MG capsule 10 mg PO BID RF: 0 aspirin [Aspir-81] 81 MG tablet,delayed release (DR/EC) 81 mg PO DAILY RF: 0 furosemide 20 MG tablet 20 mg PO BID RF: 0 spironolactone 50 MG tablet 50 mg PO BID RF: 0 epinephrine 0.3 MG/SYR auto-injector 0.3 mg IM DIRECTED PRNRF: 0 mirtazapine 15 MG tablet 7.5 mg PO HS RF: 0 atorvastatin [Lipitor] 40 MG tablet 40 mg PO QPM RF: 0 lactulose [Constulose] 10 GM/15 ML solution 45 gm PO TID RF: 0 Levemir U-100 Insulin 100 UNIT/ML solution 22 unit SQ DAILY RF: 0 lidocaine [Lidoderm] 1 PATCH patch 1 patch Topical Q24H Qty: 4 RF: 0 pantoprazole [Protonix] 20 mg Tablet,Delayed Release (Dr/Ec) 20 mg PO DAILY RF: 0 duloxetine [Cymbalta] 30 MG capsule,delayed release(DR/EC) 60 mg PO DAILY RF: 0 magnesium oxide 400 MG tablet 400 mg PO BID RF: 0 gabapentin 800 MG tablet 800 mg PO TID RF: 0 multivitamin 1 EACH capsule 1 ea PO DAILY RF: 0 insulin lispro [Humalog KwikPen Insulin] 100 UNIT/ML insulin pen 8 unit SQ AC RF: 0 thiamine mononitrate (vit B1) [Vitamin B-1 (mononitrate)] 100 MG tablet 100 mg PO DAILY RF: 0 Discharge Instructions Instructions: Urinary Tract Infection in Men (DC), Alcohol Intoxication (DC), Abuse of Alcohol (DC), Alcohol Dependence (DC), Alcoholic Hepatitis (DC) Additional Instructions: Follow up with your PCP in 1-2 weeks STOP DRINKING Activity:: Activity as Tolerated Equipment/Supplies:: No Equipment Needed Diet:: Carb Counting Discharge Orders Discharge Orders: Discharge Order (Routine); Ordered 12/22/19 Ordered By: Aminata Arredondo DS: Summary Status at Discharge Functional status at discharge: independent ambulation Overall status at discharge: patient is progressing back to baseline Mental Status: mental status grossly normal Speech and Movement: speech and movement normal Mood: congruent mood Affect: normal affect Exam Const General: no acute distress, disheveled, frail appearing and ill appearing chronically Nutritional Appearance: average body habitus Orientation: alert, awake and oriented x3 Limitations: behavioral limitations HENMT Head: normal to inspection, normocephalic and atraumatic Mouth: moist mucous membranes abnormal (slightly dry) Chest Chest: normal inspection of the chest Resp Effort & Inspection: normal respiratory effort Auscultation: clear to auscultation bilaterally Cardio Rate: regular rate Rhythm: regular rhythm GI Inspection: normal to inspection Palpation: soft Auscultation: normal bowel sounds General: bimanual renal exam normal bilaterally (good rectal tone, hemacult negative) Back/Spine/Pelvis Back: back tenderness (upper and lower on palpation, no significant pain over mid thoracic) Skin General skin exam: other (tattoos) Neuro General: patient alert, patient awake and patient oriented x3 Extrem General: normal to inspection and full ROM Psych Mental Status: mental status grossly normal Speech and Movement: speech and movement normal Mood: congruent mood Affect: normal affect DS: Data Vitals/I&O Vitals and I&O: Vital Signs Temperature 37.1 C 12/22/19 08:00 Temperature Source Temporal Artery Scan 12/22/19 08:00 Pulse 67 12/22/19 08:00 Pulse Rhythm Regular 12/22/19 11:26 Respiratory Rate 20 12/22/19 08:00 Respiratory Effort Non-Labored 12/22/19 11:26 Respiratory Depth Normal 12/22/19 11:26 Respiratory Pattern Normal 12/22/19 11:26 Blood Pressure 144/87 H 12/22/19 08:00 Pulse Oximetry 96 12/22/19 08:00 Oxygen Delivery Method Room Air 12/22/19 08:00 Oxygen Flow Rate 0 12/22/19 08:00 Pain Level 9 12/22/19 11:22 Intake & Output 12/21/19 12/22/19 12/22/19 23:59 11:59 23:59 Intake Total 582.5 / 582.5 490 / 490 Output Total 550 / 550 1400 / 2100 700 / 2100 Balance 32.5 / 32.5 -910 / -1610 -700 / -1610 Weight 84.7 kg Intake: IV 102.5 / 102.5 10 / 10 Oral 480 / 480 480 / 480 Output: Urine 550 / 550 1400 / 2100 700 / 2100 Other: Urine Color Dark [place] Yellow Urine Appearance Cloudy Clear Urine Odor None Comment pt up indepentently to void using urinal. Voiding Methods Incontinent Urinal Data Completed and Pending Completed studies during hospitalization [Text1]: CLINICAL HISTORY: fall, hit head, drunk. TECHNIQUE: Imaging Protocol: Axial computed tomography images with coronal and sagittal reformatted images were created and reviewed COMPARISON: CT CT HEAD CERVICAL SPINE WO from 10/31/2019 FINDINGS: CT Head: Ventricles and Extra axial spaces: Normal in size and morphology for the patient's age. Hemorrhage: None. Cerebral parenchyma: Normal. Midline shift: None. Brainstem/Cerebellum: Normal. Calvarium: Normal. Visualized Paranasal sinuses/Mastoids: Clear. Soft Tissues: Scalp hematoma overlying the left occipital bone. Patient motion artifact. CT Cervical Spine: Bones: No acute fracture or subluxation. Postsurgical changes in the cervical spine. Degenerative changes are seen in the spine. Soft Tissues: Unremarkable. Lung Apices: Clear. IMPRESSION: 1. No acute intracranial process. 2. Scalp hematoma overlying the left occipital bone. 3. No acute fracture or subluxation in the cervical spine. 4. Findings were discussed with the emergency department on the date of the exam ination. COMPARISON: CR CHEST 2 VIEWS PA,LAT from 11/17/2016 FINDINGS: There is poor inspiration. Heart size and pulmonary vasculature within normal limits. The lungs are clear. No pleural effusion or pneumothorax is present. Age-appropriate changes are seen in the spine. IMPRESSION: No acute pulmonary findings. COMPARISON: MR MR lumbar spine wo from 03/09/2018 FINDINGS: Bones: The last intervertebral disc space is designated the L5/S1 level for the numbering purpose of this examination. The vertebral body heights are well maintained. Alignment is satisfactory. Degenerative endplate signal changes are seen from L2-3 through L4-L5. Cord: The conus tip ends at the T12 level. It is of normal size and signal intensity. T12-L1: No disc herniations or bulges are present. No central spinal canal or neural foraminal stenosis. L1-2: No disc herniations or bulges are present. No central spinal canal or neural foraminal stenosis. L2-3: Diffuse disc bulge. Mild central spinal canal stenosis. Moderate bilateral neural foraminal stenosis. L3-4: Diffuse disc bulge. Degenerative changes of the facets. Moderately severe central spinal canal stenosis. Moderate right and moderately severe left neural foraminal stenosis. L4-5: Diffuse disc bulge. Degenerative changes of the facets. No central spinal canal stenosis. Mild right moderately and severe left neural foraminal stenosis. L5-S1: No disc herniations or bulges are present. No central spinal canal or neural foraminal stenosis.Degenerative changes of the facets. Soft tissues: The visualized SI joints and sacrum are well maintained. The paraspinal soft tissues are unremarkable. There is no evidence of suspicious enhancement. No focal fluid collection is seen to suggest an epidural abscess. IMPRESSION: 1. Multilevel degenerative changes in the lumbar spine resulting in central spinal canal and neural foraminal stenosis. 2. No EXAM: MR THORACIC SPINE WO/W CLINICAL HISTORY: pain, trauma, fever, numbness. TECHNIQUE: Multiplanar multisequence MRI of the Thoracic spine was performed. CONTRAST MATERIAL: IV Contrast: 17 mL of Dotarem contrast administered. COMPARISON: No exams were available for comparison FINDINGS: Bones: The vertebral body heights are well maintained. Alignment is satisfactory. The signal characteristics are unremarkable. Postsurgical changes seen in the lower cervical and upper thoracic spine. Cord: The thoracic cord is normal size and signal intensity. No intrinsic cord lesion is present. Discs: No disc herniation or bulge is present. No significant central spinal canal or neural foraminal stenosis. Soft tissues: Normal. There is no evidence of suspicious enhancement. No evidence of epidural abscess. IMPRESSION: 1. No significant central spinal canal or neural foraminal stenosis. 2. No evidence of an epidural abscess. Labs on day of discharge: Labs from last 24 hours 12/21/19 17:35 Urine Color Yellow Urine Clarity Clear Urine pH 7.0 Ur Specific [place] 1.020 Urine Protein Negative Urine Ketones Negative Urine Blood Trace-intact H Urine Nitrite Negative Urine Bilirubin Negative Urine Urobilinogen 1.0 H Ur Leukocyte Esterase Moderate H Urine RBC 10-20 H Urine WBC 20-50 H Ur Epithelial Cells Negative Urine Crystals Moderate amorphous Urine Bacteria Many Urine Casts Negative Urine Mucus Negative Ur Culture Indicated? Yes Urine Glucose Negative Preliminary micro results at discharge 12/21/19 17:35 Urine Culture - Preliminary Urine - Reflex from Ua Enterococcus Species 12/21/19 09:46 Blood Culture - Preliminary Blood NO GROWTH 24 HOURS 12/21/19 09:46 Blood Culture - Preliminary Blood NO GROWTH 24 HOURS [facility] Medical History Acute alcohol intoxication (Inactive) Alcohol dependence Arthritis Bilateral leg edema Chronic pain Cirrhosis of liver Depression Diabetes mellitus, type II Diabetic peripheral neuropathy Encephalopathy, hepatic GERD (gastroesophageal reflux disease) Hepatitis C Hyperlipidemia Hypertension Knee pain, right Opioid abuse TIA (transient ischemic attack) Ulnar neuropathy Surgical History H/O cervical spine surgery (Acute) Hx of total knee arthroplasty (Acute) Social History Smoking/Tobacco Use Status: Current every day Tobacco Type: cigarettes and e- cigarettes Alcohol Intake: current Alcohol Intake frequency: 3 or more drinks per day Drug use: Daily Substance use type: marijuana Housing: apartment Number of Children: 3 What type of physical activity do you participate in: walking Do you feel safe at home: Yes Do you feel safe in your relationship?: Yes
[2019-12-22] MEDS: Fosfomycin Tromethamine 3 GM PACKET PO (14:47)
[2019-12-22 15:52] VITALS: BP 131/87; PULSE 81; RESP 18; TEMP 36.4; O2SAT 96
--- NOTE | 2019-12-28 16:41 | INDS_ITS ---
Date of service: 12/28/19 PT Notes Visit Reasons: DEPRESSION, SUICIDAL IDEATION Inpatient Physical Therapy Discharge Summary Dates: 12/22/2019 Dates of Service: 12/21/2019 through 12/22/2019 Referring Doctor: Renate Hyde NP PT Orders: PT CONSULT: History of DJD with chronic back pain and multiple falls, EtOH Precautions: On suicide precautions. Fall precautions. Standard precautions. Activity as tolerated. Patient Profile/Admitting Diagnosis: Jackson is a 59-year-old male admitted on 12/20/2019 with diagnosis of sedation, suicidal ideation, high kalemia, exacerbation of low back pain, fall and alcoholic cirrhosis of liver. PMHX: Medical History Acute alcohol intoxication (Inactive) Alcohol dependence Arthritis Bilateral leg edema Chronic pain Cirrhosis of liver Depression Diabetes mellitus, type II Diabetic peripheral neuropathy Encephalopathy, hepatic GERD (gastroesophageal reflux disease) Hepatitis C Hyperlipidemia Hypertension Knee pain, right Opioid abuse TIA (transient ischemic attack) Ulnar neuropathy Surgical History H/O cervical spine surgery (Acute) Hx of total knee arthroplasty (Acute) Social History/Home Situation: Jackson claims that he is homeless at the moment. Equipment Owned/DME: None Subjective: Jackson is still not sure whether he is headed to his daughter's house or to a motel. 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 Objective: General Observation: Telemetry monitoring in place. Mental Status: Alert and is able to follow instructions Pain: Unquantified generalized body pain ROM: Right Upper Extremity: Shoulder Flexion allows lacks about 50% of AROM . Shoulder abduction lacks about 50% of AROM. Elbow flexion WFL. Wrist flexion WFL. Opening and closing of hand WFL. Left Upper Extremity: Shoulder Flexion allows lacks about 50% of AROM . Shoulder abduction lacks about 50% of AROM. Elbow flexion WFL. Wrist flexion WFL. Opening and closing of hand WFL. Right Lower Extremity: Hip flexion lacks about 25% of AROM. Hip abduction lacks about 25% of AROM. Knee flexion lacks about 25% of AROM. Ankle dorsiflexion lacks about 25% of AROM. Ankle plantarflexion lacks about 25% of AROM. Left Lower Extremity: Hip flexion lacks about 25% of AROM. Hip abduction lacks about 25% of AROM. Knee flexion lacks about 25% of AROM. Ankle dorsiflexion lacks about 25% of AROM. Ankle plantarflexion lacks about 25% of AROM. Strength: Right Upper Extremity: Shoulder flexors 3-/5. Shoulder abductors 3-/5. Elbow flexors 3+/5. Elbow extensors 3+/5. Agricultural Service Technician weak but functional. Left Upper Extremity: Shoulder flexors 3-/5. Shoulder abductors 3-/5. Elbow flexors 3+/5. Elbow extensors 3+/5. Agricultural Service Technician weak but functional. Right Lower Extremity: Hip flexors 3-/5. Hip abductors 3-/5. Knee flexors 3-/5. Knee extensors 3-/5. Ankle dorsiflexors 3-/5. Ankle plantarflexors 3-/5. Left Lower Extremity:Hip flexors 3-/5. Hip abductors 3-/5. Knee flexors 3-/5. Knee extensors 3-/5. Ankle dorsiflexors 3-/5. Ankle plantarflexors 3-/5. Sensation: Diminished as to pain and pressure on bilateral lower extremities. Bed Mobility/Transfers: Rolling supervision Supine to sit supervision Sit to supine supervision Sit to stand supervision Stand to sit supervision Bed to chair supervision Chair to bed supervision Gait: 100 feet using front wheeled walker with full weight bearing with standby assist. Appeared more steady today with increased samantha and no path deviation. Balance: Static Sitting: Normal Dynamic Sitting: Good Static Standing: Fair Dynamic Standing: Fair Assessment: Jackson presents with meaningful functional mobility gains for this episode of care to be seen by levels above and goal status below. Jackson continues to demonstrate significant functional mobility decline requiring extensive physical assistance and use of front wheeled walker for all mobility ADL performance, decreased sensation in bilateral lower extremities, unsteadiness of gait, difficulty with walking, and generalized weakness re sulting from admitting diagnoses. Jackson is a 59-year-old male admitted on 12/20/2019 with diagnosis of sedation, suicidal ideation, high kalemia, exacerbation of low back pain, fall and alcoholic cirrhosis of liver. Patient continues to present with clinical signs and symptoms consistent with current/admitting diagnoses that have resulted to mobility limitations, gait instability, generalized weakness, and impairment of motor control as demonstrated by the following impairment level findings: 1. Decreased strength to B UE/LE major muscle groups 2. Impaired standing balance 3. Impaired activity tolerance 4. Limitation of joint range of motion in B UE/LE 5. Diminished sensation to bilateral lower extremities Impairments are continuing to contribute to the following functional limitation s: 1. Dependent bed mobility skills 2. Increased dependence with transfers 3. Inability to safely ambulate without assistive device and physical assistance 4. Increase completion time for mobility ADL performance 5. Increased fall risk 6. Inability to negotiate steps alone safely Goals: Goals X1 week 1. Supine-Sit independent NOT MET 2. Sit-Supine independent NOT MET 3. Sit-Stand contact-guard assist MET 4. Stand-Sit contact-guard assist MET 5. Bed-Chair contact-guard assist MET 6. Chair-Bed contact-guard assist MET 7. Contact-guard assist gait on level surface with use of least restrictive device for at least 300 feet without report of pain nor dyspnea MET 8. Good static and dynamic standing balance/tolerance NOT MET DISCHARGE RECOMMENDATIONS: May benefit from fpc facility placement for strengthening and balance retraining. TREATMENT CODE/TIME: 72382 x 20 minutes beginning at 14:10 PM. Thank you for the opportunity to participate in the care of this patient. Adela Meraz PT, DPT, CLT [facility] [place], [place]
== END 2019-12-22 18:11 | disposition other institution (70) | DRG 690 ==
LOC: ER 16:49 → MS 17:35
PROVIDERS: Nurse Practitioner Acute Care; Admitting Provider Internal Medicine; Emergency Provider Student in an Organized Health Care Education/Training Program; PCP Family Medicine; Visit Provider Internal Medicine
DX: N39.0 Urinary tract infection, site not specified (principal); R45.851 Suicidal ideations; F10.229 Alcohol dependence with intoxication, unspecified; Y90.7 Blood alcohol level of 200-239 mg/100 ml; E87.6 Hypokalemia; G89.29 Other chronic pain; M54.9 Dorsalgia, unspecified; I10 Essential (primary) hypertension; K21.9 Gastro-esophageal reflux disease without esophagitis; F32.9 Major depressive disorder, single episode, unspecified; K70.30 Alcoholic cirrhosis of liver without ascites; S00.03XA Contusion of scalp, initial encounter; E11.42 Type 2 diabetes mellitus with diabetic polyneuropathy; F17.210 Nicotine dependence, cigarettes, uncomplicated; K70.40 Alcoholic hepatic failure without coma; B19.20 Unspecified viral hepatitis C without hepatic coma; G56.20 Lesion of ulnar nerve, unspecified upper limb; E78.5 Hyperlipidemia, unspecified; F11.10 Opioid abuse, uncomplicated; M25.561 Pain in right knee; Z86.73 Personal history of transient ischemic attack (TIA), and cerebral infarction without residual deficits; W19.XXXA Unspecified fall, initial encounter; Z79.4 Long term (current) use of insulin; Z59.0 Homelessness; M48.062 Spinal stenosis, lumbar region with neurogenic claudication; B95.2 Enterococcus as the cause of diseases classified elsewhere
CPT/HCPCS: 36415; 36416; 72158; 80053; 80307; 82962; 87040; 87077; 93005; 97162; 97530; 99220; 99226; 99239; 99285; U0003; 70450; 71046; 72125; 72157; 80320; 80329; 81003; 81015; 82607; 83036; 83735; 84439; 84443; 84484; 85025; 85610; 87086; 87186; 93010; G0378; J2270; J3490; L0172

== ENCOUNTER 2019-12-24 18:43 | Emergency (ER) | payer MEDICAID, SELFPAY ==
[2019-12-24 18:49] VITALS: BP 136/78; PULSE 90; RESP 20; TEMP 36.6; O2SAT 95
--- NOTE | 2019-12-24 19:15 | DI.CT_ITS ---
EXAM: CT HEAD CERVICAL SPINE WO CLINICAL HISTORY: head injury, fall, neck pain. TECHNIQUE: Imaging Protocol: Axial computed tomography images with coronal and sagittal reformatted images were created and reviewed COMPARISON: CT CT HEAD CERVICAL SPINE WO from 12/20/2019 FINDINGS: Head CT Ventricles and Extra axial spaces: Normal in size and morphology for the patient's age. Hemorrhage: None. Cerebral parenchyma: Normal for age. Midline shift: None. Brainstem/Cerebellum: Normal. Calvarium: Normal. Decreased size of previously noted left occipital scalp swelling. Visualized Paranasal sinuses/Mastoids: Clear. Cervical Spine CT BONES: Vertebral body heights are maintained. Alignment is normal. There is no evidence of acute frac ture. Degenerative disc changes and facet degenerative changes are seen. Laminectomies are seen at C2 throu gh C6. Posterior fusion hardware is noted from C2 through C1. A cystic area is noted in the dens. There are degenerative changes at C1-2. SOFT TISSUES: No paraspinal hematoma. The airway appears intact. No pneumothorax is seen at the lung apices. IMPRESSION: Head CT: No acute abnormality. C-spine CT: Postsurgical and degenerative changes, no acute abnormality. Incidental RADIATION DOSE DELIVERED: LINK-TO-SR Total DLP DATA REPOSITORY: All CT scans at this facility are submitted to the National Radiology Data Registry (NRDR) Dose Index Registry (DIR) with the [employer] (ACR). RADIATION OPTIMIZATION: All CT scans at this facility use at least one of these dose optimization te chniques: automated exposure control; mA and/or kV adjustment per patient size (includes targeted exa ms where dose is matched to clinical indication); or iterative reconstruction.
[2019-12-24] MEDS: Normal Saline 1,000 ML 1000 ML IV (19:38)
[2019-12-24 19:44] LABS: Abs Immature Grans 0.02 10^3/uL (0.0-0.06); Absolute Basophil Count 0.04 10^3/uL (0.0-0.2); Absolute Eosinophil Count 0.09 10^3/uL (0.0-0.7); Absolute Lymphocyte Count 2.25 10^3/uL (1.2-3.4); Absolute Monocyte Count 0.64 10^3/uL (0.1-0.8); Absolute Neutrophil Count 5.46 10^3/uL (1.2-6.7); Basophils % 0.5; Eosinophils % 1.1; HCT 39.2 % (40.0-50.0); HGB 12.4 g/dL (13.5-17.5); Immature Grans % 0.2; Lymphocytes % 26.5; MCHC 31.6 % (32.0-36.0); MPV 10.8 fL (8.0-11.0); Monocytes % 7.5; Neutrophils % 64.2; Nucleated RBC 0 %; Platelet Count 130 10^3/uL (130-400); RBC 5.16 10^6/uL (4.36-5.78); RDW 20.8 % (11.8-14.1); RDW-SD 56.2 fL
[2019-12-24 20:00] LABS: ALT 44 U/L (16-63); AST 52 U/L (15-37); Albumin 3.6 g/dL (3.4-5.0); Alkaline Phosphatase 80 U/L (46-116); Anion Gap 5.9 mmol/L (3-11); BUN 10 mg/dL (7-18); Bilirubin, Total 0.3 mg/dL (0.2-1.0); CO2 30.1 mmol/L (21.0-32.0); Calcium 9.1 mg/dL (8.5-10.1); Chloride 102 mmol/L (98-107); ETHANOL BLOOD 191.1 mg/dL (<3); Glucose 96 mg/dL (74-106); Lipase 324 U/L (73-393); Magnesium 1.7 mg/dL (1.8-2.4); Potassium 3.9 mmol/L (3.5-5.1); Sodium 138 mmol/L (136-145); Total Protein 7.5 g/dL (6.4-8.2)
[2019-12-24 20:31] LABS: Bilirubin Negative (Negative); Blood Negative (Negative); Clarity Clear (Clear); Glucose Negative (Negative); Ketones Negative (Negative); Leukocyte Esterase Negative (Negative); Nitrite Negative (Negative); Specific Gravity 1.015 (1.005-1.025); Urobilinogen 0.2 EU/dL (Up TO 0.2)
[2019-12-24 20:41] LABS: *AMPHETAMINES SCREEN URINE Negative (Negative); *BARBITURATES SCREEN URINE Negative (Negative); *BENZODIAZEPINES SCREEN URINE Negative (Negative); Cannabinoids THC Negative (Negative); Cocaine Screen,Urine Negative (Negative); METHADONE URINE SCREEN Negative (Negative); OPIATES URINE SCREEN Negative (Negative)
[2019-12-24 20:44] LABS: Tricyclic Antidepressants Negative (Negative)
--- NOTE | 2019-12-24 20:54 | W.ED.GENAD ---
Discharge Plan Disposition Patient Disposition: HOME Condition: Good Discharge Details Chief Complaint: Nk/Back Pain Clinical Impression: Chronic back pain, Continuous chronic alcoholism Primary Care Provider: Sushil Figueroa ED Provider: Renate Hyde Home Meds and New Rx's Prescriptions: Continued trazodone 150 mg tablet 150 mg PO DAILY RF: 0 citalopram 40 mg tablet 40 mg PO DAILY RF: 0 losartan 25 mg tablet 25 mg PO DAILY RF: 0 oxazepam 10 MG capsule 10 mg PO BID RF: 0 aspirin [Aspir-81] 81 MG tablet,delayed release (DR/EC) 81 mg PO DAILY RF: 0 furosemide 20 MG tablet 20 mg PO BID RF: 0 spironolactone 50 MG tablet 50 mg PO BID RF: 0 epinephrine 0.3 MG/SYR auto-injector 0.3 mg IM DIRECTED PRNRF: 0 mirtazapine 15 MG tablet 7.5 mg PO HS RF: 0 atorvastatin [Lipitor] 40 MG tablet 40 mg PO QPM RF: 0 lactulose [Constulose] 10 GM/15 ML solution 45 gm PO TID RF: 0 Levemir U-100 Insulin 100 UNIT/ML solution 22 unit SQ DAILY RF: 0 lidocaine [Lidoderm] 1 PATCH patch 1 patch Topical Q24H Qty: 4 RF: 0 pantoprazole [Protonix] 20 mg Tablet,Delayed Release (Dr/Ec) 20 mg PO DAILY RF: 0 duloxetine [Cymbalta] 30 MG capsule,delayed release(DR/EC) 60 mg PO DAILY RF: 0 magnesium oxide 400 MG tablet 400 mg PO BID RF: 0 gabapentin 800 MG tablet 800 mg PO TID RF: 0 multivitamin 1 EACH capsule 1 ea PO DAILY RF: 0 insulin lispro [Humalog KwikPen Insulin] 100 UNIT/ML insulin pen 8 unit SQ AC RF: 0 thiamine mononitrate (vit B1) [Vitamin B-1 (mononitrate)] 100 MG tablet 100 mg PO DAILY RF: 0 Discharge Instructions Instructions: Back Pain (ED), Alcohol Dependence (ED) Additional Instructions: Please refrain from drinking any alcohol Take your scheduled medications as previously directed Referrals: Sushil Figueroa [Primary Care Provider] - Medical Decision Making Presents intoxicated by EMS. Complains of chronic back pain and reports head injury with head and neck pain. His story is inconsistent and unreliable so will obtain head and C-spine CT, establish IV give 1 L IV fluid CBC CMP UA urine drug alcohol level. His magnesium is 1.7 which is replaced with 1 g IV the rest of his labs are unremarkable his head CT and C-spine are both unremarkable. His blood alcohol level is 190. He continues to remain belligerent but is oriented. Medically he has been cleared. He reports that he has no one that can come to give him a ride. He will be kept here in the emergency department until a safe disposition or sober. Patient is requesting discharge. We did have the die drawing checker come in and check a breathalyzer which was 0.10. He is awake oriented and deemed safe for discharge. He has been provided with his walker and personal belongings and is allowed to leave as requested. Is able to ambulate with his walker unassisted. His gait is slow and shuffling. He ambulated out of the department on his own. Medical Records Medical records reviewed: Yes I reviewed the patient's medical records. Medical records narrative: Lumbar and thoracic MRI completed December 21, 2019 Lab Data Lab results reviewed: Yes I reviewed the patient's lab results. Lab results narrative: Laboratory Results - last 24 hr WBC 8.50 10^3/uL (4.4-10.8) 12/24/19 15:35 RBC 5.16 10^6/uL (4.36-5.78) 12/24/19 15:35 Hgb 12.4 g/dL (13.5-17.5) L 12/24/19 15:35 Hct 39.2 % (40.0-50.0) L 12/24/19 15:35 MCV 76.0 fL (80-95) L 12/24/19 15:35 MCH 24.0 pg (27.0-33.0) L 12/24/19 15:35 MCHC 31.6 % (32.0-36.0) L 12/24/19 15:35 RDW 20.8 % (11.8-14.1) H 12/24/19 15:35 Plt Count 130 10^3/uL (130-400) 12/24/19 15:35 MPV 10.8 fL (8.0-11.0) 12/24/19 15:35 Immature Gran % 0.2 12/24/19 15:35 Neutrophils % 64.2 12/24/19 15:35 Lymphocytes % 26.5 12/24/19 15:35 Monocytes % 7.5 12/24/19 15:35 Eosinophils % 1.1 12/24/19 15:35 Basophils % 0.5 12/24/19 15:35 Nucleated RBC % 0 % 12/24/19 15:35 Absolute Neutrophils 5.46 10^3/uL (1.2-6.7) 12/24/19 15:35 Absolute Lymphocytes 2.25 10^3/uL (1.2-3.4) 12/24/19 15:35 Absolute Monocytes 0.64 10^3/uL (0.1-0.8) 12/24/19 15:35 Absolute Eosinophils 0.09 10^3/uL (0.0-0.7) 12/24/19 15:35 Absolute Basophils 0.04 10^3/uL (0.0-0.2) 12/24/19 15:35 Sodium 138 mmol/L (136-145) 12/24/19 15:35 Potassium 3.9 mmol/L (3.5-5.1) 12/24/19 15:35 Chloride 102 mmol/L (98-107) 12/24/19 15:35 Carbon Dioxide 30.1 mmol/L (21.0-32.0) 12/24/19 15:35 Anion Gap 5.9 mmol/L (3-11) 12/24/19 15:35 BUN 10 mg/dL (7-18) 12/24/19 15:35 Creatinine 0.90 mg/dL (0.70-1.30) 12/24/19 15:35 Estimated GFR/1.73 m2 >= 60.00 (mL/min/1.73m2) 12/24/19 15:35 Glucose 96 mg/dL (74-106) 12/24/19 15:35 Calcium 9.1 mg/dL (8.5-10.1) 12/24/19 15:35 Magnesium 1.7 mg/dL (1.8-2.4) L 12/24/19 15:35 Total Bilirubin 0.3 mg/dL (0.2-1.0) 12/24/19 15:35 AST 52 U/L (15-37) H 12/24/19 15:35 ALT 44 U/L (16-63) 12/24/19 15:35 Alkaline Phosphatase 80 U/L (46-116) 12/24/19 15:35 Total Protein 7.5 g/dL (6.4-8.2) 12/24/19 15:35 Albumin 3.6 g/dL (3.4-5.0) 12/24/19 15:35 Lipase 324 U/L (73-393) 12/24/19 15:35 Urine Color Yellow (Yellow) 12/24/19 20:25 Urine Clarity Clear (Clear) 12/24/19 20:25 Urine pH 7.0 (5-8) 12/24/19 20:25 Ur Specific Yarnell 1.015 (1.005-1.025) 12/24/19 20:25 Urine Protein Negative mg/dL (Negative) 12/24/19 20:25 Urine Ketones Negative mg/dL (Negative) 12/24/19 20:25 Urine Blood Negative (Negative) 12/24/19 20:25 Urine Nitrite Negative (Negative) 12/24/19 20:25 Urine Bilirubin Negative (Negative) 12/24/19 20:25 Urine Urobilinogen 0.2 EU/dL (Up TO 0.2) 12/24/19 20:25 Ur Leukocyte Esterase Negative (Negative) 12/24/19 20:25 Urine Glucose Negative mg/dL (Negative) 12/24/19 20:25 Urine Opiates Screen Negative (Negative) 12/24/19 20:25 Urine Methadone Screen Negative (Negative) 12/24/19 20:25 Ur Barbiturates Screen Negative (Negative) 12/24/19 20:25 Ur Tricyclics Screen Negative (Negative) 12/24/19 20:25 Ur Amphetamines Screen Negative (Negative) 12/24/19 20:25 U Benzodiazepines Scrn Negative (Negative) 12/24/19 20:25 Urine Cocaine Screen Negative (Negative) 12/24/19 20:25 Ur THC Screen Negative (Negative) 12/24/19 20:25 Ethyl Alcohol 191.1 mg/dL (<3) 12/24/19 15:35 HPI General Date/Time Provider Initiated Documentation: 12/24/19 19:10. Limitations to Documentation: altered mental status. Information obtained by: patient, EMS and old records reviewed. HPI Narrative: Patient presents by EMS from a care bed after being sent there by police. He had been discharged from the hospital and arrangements had been made at local mot as he is homeless but after being at the motel for some time he did become intoxicated and police were called. He was brought to police custody for safety but was complaining of severe back pain so they thought it would be better for him to be in a care bed. While at the care bed he stated he could not get up and was requesting to be brought to the emergency department. On arrival he states he fell hit his head and has posterior pain and neck pain from his fall. He is a poor historian inconsistent, belligerent, and refusing to cooperate Related Data Home Medications Medication Instructions Recorded Confirmed epinephrine 0.3 mg IM DIRECTED PRN 01/15/13 12/20/19 mirtazapine 7.5 mg PO HS 11/21/15 12/20/19 duloxetine [Cymbalta] 60 mg PO DAILY 04/06/16 12/20/19 Levemir U-100 Insulin 22 unit SQ DAILY 08/19/16 12/20/19 atorvastatin [Lipitor] 40 mg PO QPM 08/19/16 12/20/19 lactulose [Constulose] 45 gm PO TID 08/19/16 12/20/19 gabapentin 800 mg PO TID 11/19/16 12/20/19 insulin lispro [Humalog KwikPen 8 unit SQ AC 11/19/16 12/20/19 Insulin] magnesium oxide 400 mg PO BID 11/19/16 12/20/19 multivitamin 1 ea PO DAILY 11/19/16 12/20/19 thiamine mononitrate (vit B1) 100 mg PO DAILY 11/19/16 12/20/19 [Vitamin B-1 (mononitrate)] aspirin [Aspir-81] 81 mg PO DAILY tab-cap 03/15/17 12/20/19 furosemide 20 mg PO BID tab-cap 03/15/17 12/20/19 oxazepam 10 mg PO BID 03/15/17 12/20/19 spironolactone 50 mg PO BID tab-cap 03/15/17 12/20/19 citalopram 40 mg tablet 40 mg PO DAILY 06/08/18 12/20/19 losartan 25 mg tablet 25 mg PO DAILY 06/08/18 12/20/19 trazodone 150 mg tablet 150 mg PO DAILY 06/08/18 12/20/19 lidocaine [Lidoderm] 1 patch TOPICAL Q24H #4 patch 10/30/18 12/20/19 pantoprazole [Protonix] 20 mg PO DAILY 11/01/19 12/20/19 Previous Rx's Medication Instructions Recorded lidocaine [Lidoderm] 1 patch TOPICAL Q24H #4 patch 10/30/18 Allergies Allergy/AdvReac Type Severity Reaction Status Date / Time venom-honey bee Allergy Severe signs of Unverified 12/24/19 18:53 stroke pregabalin [From Lyrica] Allergy Mild Unverified 12/24/19 18:53 varenicline tartrate AdvReac Unknown Nausea Unverified 12/24/19 18:53 [From Chantix] General Stated Complaint: Nk/Back Pain SCOT: 3 Review of Systems Narrative: Patient refuses to cooperate with history and physical and review of systems. Ultimately at some point he does state that he fell struck the back of his head which is inconsistent with EMS report. Otherwise he complains of chronic back pain but he has no other new complaints per his report Unobtainable due to mental status [facility] Medical History (Updated 12/24/19 @ 22:51 by Renate Hyde NP) Acute alcohol intoxication (Inactive) Alcohol dependence Arthritis Bilateral leg edema Chronic pain Cirrhosis of liver Depression Diabetes mellitus, type II Diabetic peripheral neuropathy Encephalopathy, hepatic GERD (gastroesophageal reflux disease) Hepatitis C Hyperlipidemia Hypertension Knee pain, right Opioid abuse TIA (transient ischemic attack) Ulnar neuropathy Surgical History H/O cervical spine surgery (Acute) Hx of total knee arthroplasty (Acute) Social History Smoking/Tobacco Use Status: Current every day Tobacco Type: cigarettes and e-cigarettes Alcohol Intake: current Alcohol Intake frequency: 3 or more drinks per day Drug use: Daily Substance use type: marijuana Housing: apartment Number of Children: 3 What type of physical activity do you participate in: walking Do you feel safe at home: Yes Do you feel safe in your relationship?: Yes Exam Const General: disheveled, frail appearing, ill appearing chronically and intoxicated appearing Nutritional Appearance: average body habitus Orientation: alert, awake and oriented x3 Resp Effort & Inspection: normal respiratory effort Cardio Rate: regular rate Rhythm: regular rhythm GI Inspection: normal to inspection Neuro General: patient alert and patient awake Extrem General: normal to inspection, full ROM and no pedal edema Course Vital Signs Vital signs: Vital Signs Temperature 36.6 C 12/24/19 18:49 Pulse 90 12/24/19 18:49 Respiratory Rate 20 12/24/19 18:49 Blood Pressure 136/78 12/24/19 18:49 Pulse Oximetry 95 12/24/19 18:49 Temperature 36.6 C 12/24/19 18:49 Temperature Source Skin 12/24/19 18:49 Pulse 90 12/24/19 18:49 Respiratory Rate 20 12/24/19 18:49 Respiratory Effort 12/24/19 18:53 Blood Pressure 136/78 12/24/19 18:49 Blood Pressure Position Supine 12/24/19 18:49 Pulse Oximetry 95 12/24/19 18:49 Oxygen Delivery Method Room Air 12/24/19 18:49 Oxygen Flow Rate 0 12/24/19 18:49 Pain Level 12/24/19 18:49 Lab/Test Results Lab/Test Results: Laboratory Tests Range/Units 12/24/19 12/24/19 12/24/19 15:35 15:35 20:25 WBC (4.4-10.8) 10^3/uL 8.50 RBC (4.36-5.78) 10^6/uL 5.16 Hgb (13.5-17.5) g/dL 12.4 L Hct (40.0-50.0) % 39.2 L MCV (80-95) fL 76.0 L MCH (27.0-33.0) pg 24.0 L MCHC (32.0-36.0) % 31.6 L RDW (11.8-14.1) % 20.8 H Plt Count (130-400) 10^3/uL 130 MPV (8.0-11.0) fL 10.8 Immature Gran % 0.2 Neutrophils % 64.2 Lymphocytes % 26.5 Monocytes % 7.5 Eosinophils % 1.1 Basophils % 0.5 Nucleated RBC % % 0 Absolute Neutrophils (1.2-6.7) 10^3/uL 5.46 Absolute Lymphocytes (1.2-3.4) 10^3/uL 2.25 Absolute Monocytes (0.1-0.8) 10^3/uL 0.64 Absolute Eosinophils (0.0-0.7) 10^3/uL 0.09 Absolute Basophils (0.0-0.2) 10^3/uL 0.04 Sodium (136-145) mmol/L 138 Potassium (3.5-5.1) mmol/L 3.9 Chloride (98-107) mmol/L 102 Carbon Dioxide (21.0-32.0) mmol/L 30.1 Anion Gap (3-11) mmol/L 5.9 BUN (7-18) mg/dL 10 Creatinine (0.70-1.30) mg/dL 0.90 Estimated GFR/1.73 m2 (mL/min/1.73m2) >= 60.00 Glucose (74-106) mg/dL 96 Calcium (8.5-10.1) mg/dL 9.1 Magnesium (1.8-2.4) mg/dL 1.7 L Total Bilirubin (0.2-1.0) mg/dL 0.3 AST (15-37) U/L 52 H ALT (16-63) U/L 44 Alkaline Phosphatase (46-116) U/L 80 Total Protein (6.4-8.2) g/dL 7.5 Albumin (3.4-5.0) g/dL 3.6 Lipase (73-393) U/L 324 Urine Color (Yellow) Urine Clarity (Clear) Urine pH (5-8) Ur Specific Yarnell (1.005-1.025) Urine Protein (Negative) mg/dL Urine Ketones (Negative) mg/dL Urine Blood (Negative) Urine Nitrite (Negative) Urine Bilirubin (Negative) Urine Urobilinogen (Up TO 0.2) EU/dL Ur Leukocyte Esterase (Negative) Urine Glucose (Negative) mg/dL Urine Opiates Screen (Negative) Negative Urine Methadone Screen (Negative) Negative Ur Barbiturates Screen (Negative) Negative Ur Tricyclics Screen (Negative) Negative Ur Amphetamines Screen (Negative) Negative U Benzodiazepines Scrn (Negative) Negative Urine Cocaine Screen (Negative) Negative Ur THC Screen (Negative) Negative Ethyl Alcohol (<3) mg/dL 191.1 Range/Units 12/24/19 20:25 WBC (4.4-10.8) 10^3/uL RBC (4.36-5.78) 10^6/uL Hgb (13.5-17.5) g/dL Hct (40.0-50.0) % MCV (80-95) fL MCH (27.0-33.0) pg MCHC (32.0-36.0) % RDW (11.8-14.1) % Plt Count (130-400) 10^3/uL MPV (8.0-11.0) fL Immature Gran % Neutrophils % Lymphocytes % Monocytes % Eosinophils % Basophils % Nucleated RBC % % Absolute Neutrophils (1.2-6.7) 10^3/uL Absolute Lymphocytes (1.2-3.4) 10^3/uL Absolute Monocytes (0.1-0.8) 10^3/uL Absolute Eosinophils (0.0-0.7) 10^3/uL Absolute Basophils (0.0-0.2) 10^3/uL Sodium (136-145) mmol/L Potassium (3.5-5.1) mmol/L Chloride (98-107) mmol/L Carbon Dioxide (21.0-32.0) mmol/L Anion Gap (3-11) mmol/L BUN (7-18) mg/dL Creatinine (0.70-1.30) mg/dL Estimated GFR/1.73 m2 (mL/min/1.73m2) Glucose (74-106) mg/dL Calcium (8.5-10.1) mg/dL Magnesium (1.8-2.4) mg/dL Total Bilirubin (0.2-1.0) mg/dL AST (15-37) U/L ALT (16-63) U/L Alkaline Phosphatase (46-116) U/L Total Protein (6.4-8.2) g/dL Albumin (3.4-5.0) g/dL Lipase (73-393) U/L Urine Color (Yellow) Yellow Urine Clarity (Clear) Clear Urine pH (5-8) 7.0 Ur Specific Yarnell (1.005-1.025) 1.015 Urine Protein (Negative) mg/dL Negative Urine Ketones (Negative) mg/dL Negative Urine Blood (Negative) Negative Urine Nitrite (Negative) Negative Urine Bilirubin (Negative) Negative Urine Urobilinogen (Up TO 0.2) EU/dL 0.2 Ur Leukocyte Esterase (Negative) Negative Urine Glucose (Negative) mg/dL Negative Urine Opiates Screen (Negative) Urine Methadone Screen (Negative) Ur Barbiturates Screen (Negative) Ur Tricyclics Screen (Negative) Ur Amphetamines Screen (Negative) U Benzodiazepines Scrn (Negative) Urine Cocaine Screen (Negative) Ur THC Screen (Negative) Ethyl Alcohol (<3) mg/dL
--- NOTE | 2019-12-24 20:56 | DI.VRAD_ITS ---
PROCEDURE INFORMATION: Exam: CT Head Without Contrast Exam date and time: 12/24/2019 7:46 PM Age: 59 years old Clinical indication: Injury or trauma; Injury history: Head injury fall neck pain; Initial encounter; Abrasion TECHNIQUE: Imaging protocol: Computed tomography of the head without contrast. Radiation optimization: All CT scans at this facility use at least one of these dose optimization techniques: automated exposure control; mA and/or kV adjustment per patient size (includes targeted exams where dose is matched to clinical indication); or iterative reconstruction. COMPARISON: CT HEAD CERVICAL SPINE WO 12/20/2019 1:53 PM FINDINGS: Brain: Age-related involutional changes and chronic microvascular ischemic disease. No evidence for acute transcortical infarct. No mass effect or midline shift. No extra-axial collection. No acute intracranial hemorrhage. Basal cisterns are patent. Ventricles: Normal. No ventriculomegaly. Bones/joints: Unremarkable. No acute fracture. Sinuses: Visualized sinuses are unremarkable. No fluid levels. Mastoid air cells: Visualized mastoid air cells are well aerated. Soft tissues: Unremarkable. IMPRESSION: No evidence for acute transcortical infarct, acute intracranial hemorrhage, or mass effect. PROCEDURE INFORMATION: Exam: CT Cervical Spine Without Contrast Exam date and time: 12/24/2019 7:46 PM Age: 59 years old Clinical indication: Injury or trauma; Injury history: Head injury fall neck pain; Initial encounter; Abrasion TECHNIQUE: Imaging protocol: Computed tomography images of the cervical spine without contrast. COMPARISON: CT HEAD CERVICAL SPINE WO 12/20/2019 1:53 PM FINDINGS: Vertebrae: Cervical fusion. C2-C6 laminectomies. No acute fracture or traumatic subluxation. No spondylolisthesis. The atlantooccipital and atlantoaxial articulations are intact. Facet joint alignments are maintained. Discs/Spinal canal/Neural foramina: Age-related degenerative disc disease. Multilevel degenerative changes of the cervical spine. Other bones/joints: Occipital condyles are intact. Prevertebral Space: No prevertebral soft tissue swelling. Soft tissues: Unremarkable. Lungs: Lung apices are normal. IMPRESSION: No acute fracture or traumatic subluxation. Dictated and Authenticated by: Fortunato Gerber MD. Ordering:SONIA Dewitt MD
[2019-12-24] MEDS: MAGNESIUM SULFATE 1 GM/100 ML BAG IVPB (22:26)
== END 2019-12-24 23:05 | disposition home or self-care (01) ==
PROVIDERS: Emergency Provider Nurse Practitioner Acute Care; PCP Family Medicine
DX: M54.5 Low back pain (principal); G89.29 Other chronic pain; F10.220 Alcohol dependence with intoxication, uncomplicated; Y90.6 Blood alcohol level of 120-199 mg/100 ml; R51 Headache; M54.2 Cervicalgia; E11.9 Type 2 diabetes mellitus without complications; Z79.4 Long term (current) use of insulin; I10 Essential (primary) hypertension
CPT/HCPCS: 36415; 80053; 80307; 83690; 96361; 96374; 99284; 70450; 72125; 80320; 81003; 83735; 85025; J3475

== ENCOUNTER 2021-07-04 16:58 | Outpatient (REF) | payer MEDICAID, SELFPAY ==
[2021-07-04 19:51] LABS: Prothrombin Time 10.2 sec (9.3-11.0)
[2021-07-04 20:11] LABS: HGB 13.1 g/dL (13.5-17.5); MCH 24.9 pg (27.0-33.0); MCHC 31.2 % (32.0-36.0); MCV 79.7 fL (80-95); MPV 10.9 fL (8.0-11.0); Platelet Count 209 10^3/uL (130-400); RBC 5.27 10^6/uL (4.36-5.78); RDW 17.3 % (11.8-14.1); RDW-SD 49.1 fL; WBC 7.84 10^3/uL (4.4-10.8)
[2021-07-04 20:20] LABS: ALT 31 U/L (16-63); AST 32 U/L (15-37); Albumin 3.5 g/dL (3.4-5.0); Alkaline Phosphatase 134 U/L (46-116); Anion Gap 9.9 mmol/L (3-11); BUN 26 mg/dL (7-18); Bilirubin, Total 0.5 mg/dL (0.2-1.0); CO2 29.1 mmol/L (21.0-32.0); Calcium 8.8 mg/dL (8.5-10.1); Chloride 95 mmol/L (98-107); Glucose 99 mg/dL (74-106); Potassium 4.1 mmol/L (3.5-5.1); Sodium 134 mmol/L (136-145); Total Protein 8.4 g/dL (6.4-8.2)
[2021-07-07 12:10] LABS: HIV-1/2 Ag & Ab Screen Negative (Negative)
[2021-07-07 13:15] LABS: HCV RNA Qualitative Undetected (Undetected)
== END 2021-07-04 16:59 | disposition home or self-care (01) ==
LOC: NCHCN 16:58
PROVIDERS: PCP Family Medicine; Visit Provider Family Medicine
DX: K70.30 Alcoholic cirrhosis of liver without ascites (principal); B18.2 Chronic viral hepatitis C; Z11.4 Encounter for screening for human immunodeficiency virus [HIV]; Z13.89 Encounter for screening for other disorder
CPT/HCPCS: 80053; 85027; 87389; 87522; 85610

== ENCOUNTER 2021-07-15 20:33 | Outpatient (REF) | payer MEDICAID, SELFPAY ==
[2021-07-15 21:06] LABS: Bilirubin Negative (Negative); Blood Trace-intact (Negative); Clarity Clear (Clear); Glucose Negative (Negative); Ketones Negative (Negative); Leukocyte Esterase Negative (Negative); Nitrite Negative (Negative); pH 5.5 (5-8)
[2021-07-15 21:24] LABS: Bacteria Many HPF (Negative); C & S Indicated? Yes; Casts Negative LPF (Negative); Crystals Negative HPF (Negative); Epithelial Cells Negative HPF (Negative); Mucus Negative (Negative); Other Cells Negative (Negative); RBC Negative HPF (0-2); WBC 0-2 HPF (0-5)
== END 2021-07-15 20:34 | disposition home or self-care (01) ==
LOC: NCHCN 20:33
PROVIDERS: PCP Family Medicine; Visit Provider Family Medicine
DX: M50.222 Other cervical disc displacement at C5-C6 level (principal)
CPT/HCPCS: 87077; 81003; 81015; 87086; 87186

== ENCOUNTER 2021-07-28 13:46 | Inpatient (IN) | payer MEDICAID, SELFPAY ==
[2021-07-28] VITALS (9 sets, daily range): BP systolic 102–111; BP diastolic 64–71; PULSE 80–110; RESP 16–22; TEMP 36.2–37.4; O2SAT 92–97
--- NOTE | 2021-07-28 14:15 | DI.US_ITS ---
Exam(s) US EXTREMITY VENOUS BI EXAM: US EXTREMITY VENOUS BI CLINICAL HISTORY: b/l lower extremity edema worse on left. TECHNIQUE: Lower extremity venous ultrasound performed using grayscale, color-flow, and spectral Do ppler analysis. COMPARISON: No exams were available for comparison FINDINGS: Exam was ordered as bilateral lower extremity ultrasound, however after imaging of the common femoral through distal femoral veins, the patient refused additional imaging. The distal right leg and left leg were not scanned. IMPRESSION: Limited exam. No evidence of deep venous thrombosis from the right common femoral through distal fem oral veins. DATA REPOSITORY:
[2021-07-28 14:32] LABS: Absolute Basophil Count 0.03 10^3/uL (0.0-0.2); Absolute Eosinophil Count 0.05 10^3/uL (0.0-0.7); Absolute Lymphocyte Count 0.77 10^3/uL (1.2-3.4); Absolute Monocyte Count 0.71 10^3/uL (0.1-0.8); Absolute Neutrophil Count 8.45 10^3/uL (1.2-6.7); Basophils % 0.3; Eosinophils % 0.5; HCT 37.8 % (40.0-50.0); HGB 12.2 g/dL (13.5-17.5); Lymphocytes % 7.5; MCH 25.2 pg (27.0-33.0); MCHC 32.3 % (32.0-36.0); MCV 77.9 fL (80-95); MPV 9.7 fL (8.0-11.0); Neutrophils % 82.7; Nucleated RBC 0 %; Platelet Count 174 10^3/uL (130-400); RBC 4.85 10^6/uL (4.36-5.78); RDW 16.8 % (11.8-14.1); RDW-SD 47.6 fL; WBC 10.21 10^3/uL (4.4-10.8)
--- NOTE | 2021-07-28 14:54 | ED.GENADUL_ITS ---
Discharge Plan Disposition Patient Disposition: [facility] INPATIENT Discharge Details Chief Complaint: Cellulitis Clinical Impression: Cellulitis Admit Date/Time: 07/28/21 15:46 Admit Provider: Danny Tran Attending Provider: Danny Tran Primary Care Provider: Sushil Figueroa ED Provider: Annie Montoya Discharge Data Discharge Date/Time-TO BE ENTERED AT DEPARTURE: 07/28/21 16:40 Medical Decision Making Jackson Austin is a 61-year-old man with history of hypertension, GERD, cirrhosis, hyperlipidemia substance use disorder, bilateral leg edema, TIA presenting to emergency department with leg pain. Patient here reporting that his lower extremity edema has been worsening and he is having increased pain in both legs over the past month. Patient reports that pain has become severe enough that he is unable to walk at home. He denies any other pain, fever, cough, shortness of breath, vomiting, diarrhea, numbness, weakness, other rash. Patient reports that he has not been been taking all of his medications regularly because he has a hard time walking in his home. On exam patient is chronically ill but acutely nontoxic-appearing. There is bilateral lower extremity edema and erythema distal to the knees, multiple weeping ulcerations. Concern for cellulitis, DVT, other. Exam/history at this time is not consistent with sepsis, necrotizing fasciitis, septic arthritis. Plan for IV placement, screening labs, DVT ultrasound studies, IV vancomycin, IV pain medication. Will monitor and reassess. Pt refused US 2/2 pain. Plan for admission for further eval and treatment. Medical Records Medical records reviewed: Yes I reviewed the patient's medical records. Imaging Data Radiologic Study: Radiologist's impression: EXAM:? US EXTREMITY VENOUS BI CLINICAL HISTORY: ? b/l lower extremity edema worse on left.? TECHNIQUE: ? Lower extremity venous ultrasound performed using grayscale, color- flow, and spectral Doppler analysis. COMPARISON:? No exams were available for comparison FINDINGS: Exam was ordered as bilateral lower extremity ultrasound, however after imaging of the common femoral through distal femoral veins, the patient refused additional imaging.? The distal right leg and left leg were not scanned. IMPRESSION: Limited exam.? No evidence of deep venous thrombosis from the right common femoral through distal femoral veins.? Lab Data Lab results reviewed: Yes I reviewed the patient's lab results. HPI General Date/Time Provider Initiated Documentation: 07/28/21 13:49 . Limitations to Documentation: no limitations . Information obtained by: patient, RN notes reviewed and old records reviewed . HPI Narrative: Jackson Austin is a 61-year-old man with history of hypertension, GERD, cirrhosis, hyperlipidemia substance use disorder, bilateral leg edema, TIA presenting to emergency department with leg pain. Patient here reporting that his lower extremity edema has been worsening and he is having increased pain in both legs over the past month. Patient reports that pain has become severe enough that he is unable to walk at home. He denies any other pain, fever, cough, shortness of breath, vomiting, diarrhea, numbness, weakness, other rash. Patient reports that he has not been been taking all of his medications regularly because he has a hard time walking in his home. Related Data Home Medications Medication Instructions Recorded Confirmed epinephrine 0.3 mg/0.3 mL 0.3 mg IM DIRECTED PRN 01/15/13 12/20/19 injection, auto-injector atorvastatin 40 mg tablet (Lipitor) 40 mg PO QPM 08/19/16 07/28/21 lactulose 10 gram/15 mL oral 45 gm PO TID 08/19/16 12/20/19 solution (Constulose) magnesium oxide 400 mg (241.3 mg 400 mg PO BID 11/19/16 12/20/19 magnesium) tablet multivitamin 1 ea PO DAILY 11/19/16 07/28/21 thiamine mononitrate (vit B1) 100 100 mg PO DAILY 11/19/16 07/28/21 mg tablet (Vitamin B-1 (mononitrate)) aspirin 81 mg tablet,delayed 81 mg PO DAILY tab-cap 03/15/17 07/28/21 release (Aspir-) lidocaine 5 % topical patch 1 patch TOPICAL Q24H #4 patch 10/30/18 12/20/19 (Lidoderm) pantoprazole 20 mg tablet,delayed 20 mg PO DAILY 11/01/19 12/20/19 release (Protonix) duloxetine 30 mg capsule,delayed 30 mg PO DAILY cap 07/18/21 07/28/21 release (Cymbalta) furosemide 20 mg tablet 40 mg PO BID tab-cap 07/18/21 07/28/21 spironolactone 50 mg tablet 50 mg PO DAILY tab-cap 07/18/21 07/28/21 tamsulosin 0.4 mg capsule (Flomax) 0.8 mg PO DAILY cap 07/18/21 07/28/21 trazodone 50 mg tablet 50 mg PO DAILY 07/18/21 07/28/21 polyethylene glycol 3350 17 17 g PO DAILY PRN PRN 07/28/21 07/28/21 gram/dose oral powder (Miralax) Previous Rx's Medication Instructions Recorded lidocaine 5 % topical patch 1 patch TOPICAL Q24H #4 patch 10/30/18 (Lidoderm) Allergies Allergy/AdvReac Type Severity Reaction Status Date / Time venom-honey bee Allergy Severe signs of Unverified 12/24/19 18:53 stroke pregabalin [From Lyrica] Allergy Mild Unverified 12/24/19 18:53 varenicline tartrate AdvReac Unknown Nausea Unverified 12/24/19 18:53 [From Chantix] General Stated Complaint: Cellulitis SCOT: 2 Review of Systems Narrative: Constitutional: denies fevers Eyes: denies eye pain ENT: denies ear pain, dental pain, sore throat Cardiovascular: denies chest pain, reports lower extremity edema Respiratory: denies SOB, cough GI: denies abdominal pain, vomiting, diarrhea : denies flank pain MSK: denies back pain, neck pain, arthralgias, reports generalized pain to bilateral lower extremities below the knees. Skin: Reports redness and weeping bilateral lower leg, denies other rash Neuro: denies headaches, numbness, weakness PFSH All Active Problems (Updated 08/04/21 @ 21:29 by Annie Montoya MD) MRSA cellulitis (Acute) Chronic anemia (Acute) Pressure ulcers of skin of multiple topographic sites (Acute) Chronic cutaneous venous stasis ulcer (Acute) Chronic venous stasis dermatitis of both lower extremities (Acute) Chronic venous stasis (Acute) Polysubstance abuse (Acute) Cellulitis (Acute) UTI (urinary tract infection) (Acute) Ambulatory dysfunction (Acute) Discharge planning issues (Acute) Fall (Acute) Alcoholic cirrhosis of liver (Acute) Lactic acidosis (Acute) Dehydration (Acute) Alcohol withdrawal (Acute) TIA (transient ischemic attack) (Acute) Alcohol withdrawal syndrome (Acute 01/15/13) Continuous chronic alcoholism (Acute 01/15/13) Acute pancreatitis (Acute 01/15/13) Acquired thrombocytopenia (Acute 01/15/13) Medical History Acute alcohol intoxication Alcohol dependence Anemia Arthritis Bilateral leg edema Chronic pain Cirrhosis of liver Diabetic peripheral neuropathy Encephalopathy, hepatic Hepatitis C Hyperlipidemia Knee pain, right TIA (transient ischemic attack) Ulnar neuropathy Urinary retention Surgical History H/O cervical spine surgery Hx of total knee arthroplasty Social History Smoking/Tobacco Use Status: Current every day Tobacco Type: cigarettes and e- cigarettes Smoking risk assessment performed?: Yes Alcohol Intake: current Alcohol Intake frequency: 3 or more drinks per day Drug use: Daily Substance use type: marijuana Housing: apartment Number of Children: 3 What type of physical activity do you participate in: walking Do you feel safe at home: Yes Do you feel safe in your relationship?: Yes Exam Narrative Exam Narrative: Constitutional: Chronically ill but acutely [id number], conversing normally, Pt yelling and verbally abusive to staff, these nurses are all shit, get me a good one HENT: head atraumatic/normocephalic/normal inspection, mucous membranes moist Eyes: conjunctiva normal, sclera normal, pupils 3mm b/l Neck: no stridor, normal ROM, trachea midline Chest: normal inspection Resp: normal work of breathing, speaking in full sentences Cardio: normal rate, normal rhythm GI: abdomen soft, non-tender, non-distended Skin: warm, dry, normal color, no rash Neuro: alert, not altered, grossly non-focal, normal tone Ext: 3+ edema bilateral lower extremities, left greater than right, multiple weeping ulcerations bilateral lower extremities, generalized erythema and warm bilateral lower extremities distal to the knee. No crepitus. Ranging ankles. Refuses flexion of knee, elevation of legs 2/2 pain in lower legs. DP pulses intact and symmetric. Psych: normal mood, normal affect, normal behavior Course Vital Signs Vital signs: Vital Signs Temperature 36.5 C 07/28/21 13:53 Pulse 95 H 07/28/21 13:53 Respiratory Rate 18 07/28/21 13:53 Blood Pressure 108/70 07/28/21 13:53 Pulse Oximetry 94 07/28/21 13:53 Temperature 36.5 C 07/28/21 13:53 Temperature Source Oral 07/28/21 13:53 Pulse 95 H 07/28/21 13:53 Pulse 98 H 07/28/21 14:40 Respiratory Rate 18 07/28/21 13:53 Respiratory Effort Non-Labored 07/28/21 13:57 Blood Pressure 108/70 07/28/21 13:53 Blood Pressure Position Supine 07/28/21 13:53 Pulse Oximetry 94 07/28/21 13:53 Oxygen Delivery Method Room Air 07/28/21 13:53 Oxygen Flow Rate 0 07/28/21 13:53 Pain Level 9 07/28/21 13:53 Lab/Test Results Lab/Test Results: 07/28/21 14:15 Blood Blood Culture - Pending 07/28/21 14:21 Blood Blood Culture - Pending Laboratory Tests Range/Units 07/28/21 14:15 WBC (4.4-10.8) 10^3/uL 10.21 RBC (4.36-5.78) 10^6/uL 4.85 Hgb (13.5-17.5) g/dL 12.2 L Hct (40.0-50.0) % 37.8 L MCV (80-95) fL 77.9 L MCH (27.0-33.0) pg 25.2 L MCHC (32.0-36.0) % 32.3 RDW (11.8-14.1) % 16.8 H Plt Count (130-400) 10^3/uL 174 MPV (8.0-11.0) fL 9.7 Immature Gran % 2.0 Neutrophils % 82.7 Lymphocytes % 7.5 Monocytes % 7.0 Eosinophils % 0.5 Basophils % 0.3 Nucleated RBC % % 0 Absolute Neutrophils (1.2-6.7) 10^3/uL 8.45 H Absolute Lymphocytes (1.2-3.4) 10^3/uL 0.77 L Absolute Monocytes (0.1-0.8) 10^3/uL 0.71 Absolute Eosinophils (0.0-0.7) 10^3/uL 0.05 Absolute Basophils (0.0-0.2) 10^3/uL 0.03
[2021-07-28 15:00] LABS: ALT 26 U/L (16-63); AST 35 U/L (15-37); Albumin 2.8 g/dL (3.4-5.0); Alkaline Phosphatase 148 U/L (46-116); Anion Gap 9.4 mmol/L (3-11); BUN 63 mg/dL (7-18); Bilirubin, Total 0.4 mg/dL (0.2-1.0); CO2 24.6 mmol/L (21.0-32.0); CREATININE 1.8 mg/dL (0.70-1.30); Calcium 8.9 mg/dL (8.5-10.1); Chloride 86 mmol/L (98-107); Estimated GFR 38.81 (mL/min/1.73m2); Glucose 128 mg/dL (74-106); Magnesium 2.6 mg/dL (1.8-2.4); Potassium 4.1 mmol/L (3.5-5.1); TSH (W/Ref FT4) 0.87 uIU/mL (0.36-3.74); Total Protein 8.7 g/dL (6.4-8.2)
[2021-07-28 15:02] LABS: NT-proBNP 102 pg/mL (<300)
[2021-07-28 15:03] LABS: Sodium 120 mmol/L (136-145)
[2021-07-28 15:09] LABS: D-Dimer 3591 ng/mlFEU (<500)
[2021-07-28 15:12] LABS: Lactate 1.7 mmol/L (0.6-1.4)
[2021-07-28] MEDS: MORPHine 4 MG/ML SYR IVP (15:16)
[2021-07-28] MEDS: VANCOMYCIN/WATER (PEG) 1.5 GM/300 ML BAG IVPB (15:51)
[2021-07-28 16:09] LABS: Source Nasal/Nares
[2021-07-28 16:17] LABS: Lab Add On Test DONE
[2021-07-28 16:26] LABS: C-Reactive Protein 17.33 mg/dL (0.0-0.3)
[2021-07-28 16:48] LABS: COVID-19 PCR Negative (Negative)
--- NOTE | 2021-07-28 17:44 | HPE_ITS ---
Date of service: 07/28/21 Time of Service: 17:44 Assessment and Plan Assessment and plan (1) Opioid abuse: Status: None Assessment and plan: In his history. Will require short-term opioids for BLE pain. (2) Depression: Status: None Assessment and plan: Cont Cymbalta. (3) Hypertension: Status: None Assessment and plan: Not currently on any antihypertensive medications. Monitor. (4) Diabetes mellitus, type II: Status: None Assessment and plan: Not on medications. Random blood draw glucose normal. AC fingerstick glucose 95. Will monitor for several more readings and if continue to be controlled will d/c monitoring. (5) Alcoholic cirrhosis of liver: Status: Acute Assessment and plan: He has not been taking lactulose. No encephalopathy noted. Will restart at 30 gr daily. Previously prescribed 45 gr TID and stopped because of intolerance to the loose stools. AST and ALT normal. Bilirubin normal. (6) Bilateral leg edema: Assessment and plan: Chronic venous stasis with significant skin changes, edema and a left lateral LE shallow ulceration. Elevated legs. Lasix 40mg IV BID; for hyponatremia. Prescribed oral lasix at home but he endorses not routinely taking his medicatio ns. (7) Hyperlipidemia: Assessment and plan: Cont Atovastatin. Lipid profile in AM (8) Cellulitis: Status: Acute Assessment and plan: Chronic venous stasis with chronic skin discoloration / erythema. However, the LLE is more erthyematous and has a shallow ulceration that could be portal of entry for bacteria. Vancomycin initiated in ED; continue with pharmacy dosing. Trend CRP. WBC count normal. No fever. History of Present Illness History of Present Illness Chief Complaint: Bilateral leg pain Review of Systems All systems reviewed & are unremarkable except as noted in HPI and below PFSH All Active Problems (Updated 07/28/21 @ 17:48 by Danny Tran MD) Cellulitis (Acute) UTI (urinary tract infection) (Acute) Ambulatory dysfunction (Acute) Discharge planning issues (Acute) Fall (Acute) Alcoholic cirrhosis of liver (Acute) Lactic acidosis (Acute) Dehydration (Acute) Alcohol withdrawal (Acute) TIA (transient ischemic attack) (Acute) Alcohol withdrawal syndrome (Acute 01/15/13) Continuous chronic alcoholism (Acute 01/15/13) Acute pancreatitis (Acute 01/15/13) Acquired thrombocytopenia (Acute 01/15/13) Medical History Acute alcohol intoxication Alcohol dependence Anemia Arthritis Bilateral leg edema Chronic pain Cirrhosis of liver Diabetic peripheral neuropathy Encephalopathy, hepatic Hepatitis C Hyperlipidemia Knee pain, right TIA (transient ischemic attack) Ulnar neuropathy Urinary retention Surgical History H/O cervical spine surgery Hx of total knee arthroplasty Social History Smoking/Tobacco Use Status: Current every day Tobacco Type: cigarettes and e- cigarettes Smoking risk assessment performed?: Yes Alcohol Intake: current Alcohol Intake frequency: 3 or more drinks per day Drug use: Daily Substance use type: marijuana Housing: apartment Number of Children: 3 What type of physical activity do you participate in: walking Do you feel safe at home: Yes Do you feel safe in your relationship?: Yes Meds Allergies and Home Medications Allergies Allergy/AdvReac Type Severity Reaction Status Date / Time venom-honey bee Allergy Severe signs of Unverified 12/24/19 18:53 stroke pregabalin [From Lyrica] Allergy Mild Unverified 12/24/19 18:53 varenicline tartrate AdvReac Unknown Nausea Unverified 12/24/19 18:53 [From Chantix] Home Medications Medication Instructions Recorded Confirmed Type epinephrine 0.3 mg/0.3 mL 0.3 mg IM DIRECTED PRN 01/15/13 12/20/19 History injection, auto-injector atorvastatin 40 mg tablet (Lipitor) 40 mg PO QPM 08/19/16 07/28/21 History lactulose 10 gram/15 mL oral 45 gm PO TID 08/19/16 12/20/19 History solution (Constulose) magnesium oxide 400 mg (241.3 mg 400 mg PO BID 11/19/16 12/20/19 History magnesium) tablet multivitamin 1 ea PO DAILY 11/19/16 07/28/21 History thiamine mononitrate (vit B1) 100 100 mg PO DAILY 11/19/16 07/28/21 History mg tablet (Vitamin B-1 (mononitrate)) aspirin 81 mg tablet,delayed 81 mg PO DAILY tab-cap 03/15/17 07/28/21 History release (Aspir-) lidocaine 5 % topical patch 1 patch TOPICAL Q24H #4 patch 10/30/18 12/20/19 Rx (Lidoderm) pantoprazole 20 mg tablet,delayed 20 mg PO DAILY 11/01/19 12/20/19 History release (Protonix) duloxetine 30 mg capsule,delayed 30 mg PO DAILY cap 07/18/21 07/28/21 History release (Cymbalta) furosemide 20 mg tablet 40 mg PO BID tab-cap 07/18/21 07/28/21 History spironolactone 50 mg tablet 50 mg PO DAILY tab-cap 07/18/21 07/28/21 History tamsulosin 0.4 mg capsule (Flomax) 0.8 mg PO DAILY cap 07/18/21 07/28/21 History trazodone 50 mg tablet 50 mg PO DAILY 07/18/21 07/28/21 History polyethylene glycol 3350 17 17 g PO DAILY PRN PRN 07/28/21 07/28/21 History gram/dose oral powder (Miralax) Exam Narrative Exam Narrative: Lying in bed. Interactive. States he is in pain; both legs. Const Nutritional Appearance: obese Orientation: alert and oriented x3 Eyes General: appearance normal, both eyes and all related structures Sclera: sclerae normal Resp Effort & Inspection: normal respiratory effort Auscultation: clear to auscultation bilaterally Cardio Rate: regular rate Rhythm: regular rhythm Heart Sounds: S1 normal and S2 normal GI Palpation: soft and nontender Auscultation: normal bowel sounds Neuro General: no focal motor deficits Cranial Nerves: facial strength normal Speech: speech normal Extrem Upper/lower leg/hip images: 1. Thickened dermis with brawny and erythematous skin discoloration. Slightly more erythema on the left. + edema. Left gómez-lateral calf ulceration. Results Labs Result diagrams: 07/28/21 14:15 07/28/21 14:15 Labs: Laboratory Results - last 24 hr 07/28/21 07/28/21 07/28/21 14:15 14:15 14:15 WBC 10.21 RBC 4.85 Hgb 12.2 L Hct 37.8 L MCV 77.9 L MCH 25.2 L MCHC 32.3 RDW 16.8 H Plt Count 174 MPV 9.7 Immature Gran % 2.0 Neutrophils % 82.7 Lymphocytes % 7.5 Monocytes % 7.0 Eosinophils % 0.5 Basophils % 0.3 Nucleated RBC % 0 Absolute Neutrophils 8.45 H Absolute Lymphocytes 0.77 L Absolute Monocytes 0.71 Absolute Eosinophils 0.05 Absolute Basophils 0.03 D-Dimer VBG Lactate Sodium 120 L* Potassium 4.1 Chloride 86 L Carbon Dioxide 24.6 Anion Gap 9.4 BUN 63 H Creatinine 1.8 H Estimated GFR/1.73 m2 38.81 Glucose 128 H Calcium 8.9 Magnesium 2.6 H Total Bilirubin 0.4 AST 35 ALT 26 Alkaline Phosphatase 148 H C-Reactive Protein NT-Pro-B Natriuret Pep 102 Total Protein 8.7 H Albumin 2.8 L TSH 0.87 COVID-19 Source SARS-CoV-2 (PCR) Add-On Test Request 07/28/21 07/28/21 07/28/21 14:15 14:15 15:00 WBC RBC Hgb Hct MCV MCH MCHC RDW Plt Count MPV Immature Gran % Neutrophils % Lymphocytes % Monocytes % Eosinophils % Basophils % Nucleated RBC % Absolute Neutrophils Absolute Lymphocytes Absolute Monocytes Absolute Eosinophils Absolute Basophils D-Dimer 3591 H VBG Lactate 1.7 H Sodium Potassium Chloride Carbon Dioxide Anion Gap BUN Creatinine Estimated GFR/1.73 m2 Glucose Calcium Magnesium Total Bilirubin AST ALT Alkaline Phosphatase C-Reactive Protein 17.33 H NT-Pro-B Natriuret Pep Total Protein Albumin TSH COVID-19 Source SARS-CoV-2 (PCR) Add-On Test Request 07/28/21 07/28/21 16:00 Unknown WBC RBC Hgb Hct MCV MCH MCHC RDW Plt Count MPV Immature Gran % Neutrophils % Lymphocytes % Monocytes % Eosinophils % Basophils % Nucleated RBC % Absolute Neutrophils Absolute Lymphocytes Absolute Monocytes Absolute Eosinophils Absolute Basophils D-Dimer VBG Lactate Sodium Potassium Chloride Carbon Dioxide Anion Gap BUN Creatinine Estimated GFR/1.73 m2 Glucose Calcium Magnesium Total Bilirubin AST ALT Alkaline Phosphatase C-Reactive Protein NT-Pro-B Natriuret Pep Total Protein Albumin TSH COVID-19 Source Nasal/Nares SARS-CoV-2 (PCR) Negative Add-On Test Request DONE Last Vital Signs Temp 36.8 C 07/28/21 17:03 Pulse 103 H 07/28/21 17:03 Resp 16 07/28/21 17:03 BP 105/71 07/28/21 17:03 Pulse Ox 97 07/28/21 17:03
[2021-07-28] MEDS: Furosemide 40 MG/4 ML VIAL IVP (17:59)
[2021-07-28] MEDS: Heparin 5,000 UNITS/ML VIAL 5000 UNITS SC (18:00)
[2021-07-28] MEDS: oxyCODONE 10 MG TAB PO (18:00)
[2021-07-28] MEDS: Normal Saline 1,000 ML 80 ML IV (18:00)
[2021-07-28] MEDS: Polyethylene Glycol 3350 17 GM PACKET PO (20:03)
[2021-07-28] MEDS: Acetaminophen 325 MG TAB PO (20:03)
[2021-07-28] MEDS: Atorvastatin 40 MG TAB PO (20:04)
[2021-07-28 20:35] LABS: Anion Gap 10.9 mmol/L (3-11); BUN 62 mg/dL (7-18); CO2 22.1 mmol/L (21.0-32.0); CREATININE 1.5 mg/dL (0.70-1.30); Calcium 8.6 mg/dL (8.5-10.1); Chloride 89 mmol/L (98-107); Glucose 125 mg/dL (74-106); Potassium 4.5 mmol/L (3.5-5.1)
[2021-07-28 20:55] LABS: Sodium 122 mmol/L (136-145)
[2021-07-28] MEDS: Normal Saline Flush 10 ML SYR IVP ×2 (22:03→23:02)
[2021-07-28] MEDS: fentaNYL 100 MCG/2 ML VIAL 50 MCG IVP (23:01)
[2021-07-29] MEDS: Heparin 5,000 UNITS/ML VIAL 5000 UNITS SC (01:15)
[2021-07-29 01:40] LABS: Bilirubin Negative (Negative); Blood Moderate (Negative); Clarity Sl Cloudy (Clear); Glucose Negative (Negative); Ketones Negative (Negative); Leukocyte Esterase Negative (Negative); Nitrite Negative (Negative); pH 5.5 (5-8)
[2021-07-29 01:50] LABS: Bacteria Moderate HPF (Negative); C & S Indicated? Yes; Casts Negative LPF (Negative); Crystals Negative HPF (Negative); Epithelial Cells Few HPF (Negative); Mucus Negative (Negative)
[2021-07-29 06:53] LABS: Lactate 0.9 mmol/L (0.6-1.4)
[2021-07-29 06:54] LABS: Abs Immature Grans 0.06 10^3/uL (0.0-0.06); Absolute Basophil Count 0.02 10^3/uL (0.0-0.2); Absolute Eosinophil Count 0.02 10^3/uL (0.0-0.7); Absolute Lymphocyte Count 0.64 10^3/uL (1.2-3.4); Absolute Monocyte Count 0.67 10^3/uL (0.1-0.8); Absolute Neutrophil Count 6.91 10^3/uL (1.2-6.7); Basophils % 0.2; Eosinophils % 0.2; HCT 35.3 % (40.0-50.0); HGB 11.4 g/dL (13.5-17.5); Immature Grans % 0.7; Lymphocytes % 7.7; MCH 25.3 pg (27.0-33.0); MCHC 32.3 % (32.0-36.0); MCV 78.3 fL (80-95); MPV 9.4 fL (8.0-11.0); Monocytes % 8.1; Neutrophils % 83.1; Nucleated RBC 0 %; Platelet Count 129 10^3/uL (130-400); RBC 4.51 10^6/uL (4.36-5.78); RDW 16.8 % (11.8-14.1); RDW-SD 48.1 fL; WBC 8.32 10^3/uL (4.4-10.8)
[2021-07-29 07:12] LABS: ALT 25 U/L (16-63); AST 28 U/L (15-37); Albumin 2.4 g/dL (3.4-5.0); Alkaline Phosphatase 129 U/L (46-116); Anion Gap 8.2 mmol/L (3-11); BUN 50 mg/dL (7-18); Bilirubin, Total 0.7 mg/dL (0.2-1.0); C-Reactive Protein 13.34 mg/dL (0.0-0.3); CO2 24.8 mmol/L (21.0-32.0); CREATININE 1.2 mg/dL (0.70-1.30); Calcium 8.3 mg/dL (8.5-10.1); Chloride 91 mmol/L (98-107); Glucose 92 mg/dL (74-106); Magnesium 2.2 mg/dL (1.8-2.4); Potassium 4.3 mmol/L (3.5-5.1); Total Protein 7.3 g/dL (6.4-8.2)
[2021-07-29 07:15] LABS: Sodium 124 mmol/L (136-145)
[2021-07-29 07:27] LABS: Calculated LDL 48 mg/dL (<100); Cholesterol 114 mg/dL (<200); HDL Cholesterol 54 mg/dL (40-60); Triglyceride 60 mg/dL (<150)
[2021-07-29] MEDS: Multivitamin TAB 1 TAB PO (08:23)
[2021-07-29] MEDS: Tamsulosin 0.4 MG CAPCR 0.8 MG PO (08:23)
[2021-07-29] MEDS: DULoxetine 30 MG CAP PO (08:23)
[2021-07-29] MEDS: Spironolactone 50 MG TAB PO (08:23)
[2021-07-29] MEDS: Thiamine 100 MG TAB PO (08:23)
[2021-07-29] MEDS: Aspirin E.C. 81 MG TABEC PO (08:23)
[2021-07-29] MEDS: Furosemide 40 MG/4 ML VIAL IVP ×2 (08:24→17:03)
[2021-07-29] MEDS: Polyethylene Glycol 3350 17 GM PACKET PO (08:25)
[2021-07-29] MEDS: oxyCODONE 10 MG TAB PO (08:26)
--- NOTE | 2021-07-29 08:28 | PDOC.CMIN ---
- If Service Date Differs Date of service: 07/29/21 Time of Service: 08:28 Care Management Initial Assess REASON FOR HOSPITALIZATION:: Hyponatremia PAST MEDICAL HISTORY/PAST SURGICAL HISTORY:: Medical History . Acute alcohol intoxication. Alcohol dependence. Anemia. Arthritis. Bilateral leg edema. Chronic pain. Cirrhosis of liver. Diabetic peripheral neuropathy. Encephalopathy, hepatic. Hepatitis C. Hyperlipidemia. Knee pain, right. TIA (transient ischemic attack). Ulnar neuropathy. Urinary retention. Surgical History . H/O cervical spine surgery. Hx of total knee arthroplasty PREVIOUS FUNCTIONAL STATUS/SOCIAL/FAMILY SUPPORTS:: Jackson is a 61 year old man who was recently released from care home after being in care home for 14 months. He is disabled and is currently renting a room in a friend's home. He receives his meals at the home as well. Jackson does not receive any community services. He has 3 adult children and 4 grandchildren but is not in contact with any of them. CURRENT FUNCTIONAL STATUS:: Jackson was sitting up in bed when CM met with him. He was polite but a bit distant in interaction. When asked, Jackson stated that he has felt better. He informed CM that he is unable to walk without a walker and hardly ever goes out. He was a bit vague about his living arrangements, saying only that he is renting a room from a friend. ADVANCE DIRECTIVES:: none on file Has patient been provided with info about the portal/API?: Yes Did the patient sign up for the portal?: Yes (previously) CODE STATUS:: Full Code INSURANCE COVERAGE / FINANCIAL ISSUES:: Medicaid CURRENT HOME/COMMUNITY SERVICES/EQUIPMENT:: Jackson uses a walker for ambulation. He does not currently receive any community services. PRIMARY CARE PHYSICIAN:: Sushil Figueroa POTENTIAL DISCHARGE NEEDS:: Follow up with PCP and plan of care PATIENT/FAMILY EDUCATION NEEDS:: Review of discharge instructions, activity, limitations, follow up plan, Ask Me Three TRANSPORTATION:: via private vehicle vs RCT PLAN:: Jackson will likley be discharged home, possibly with new home health services. He will follow up with his PCP and community providers and transport with a friend. CM will continue to support Jackson and his discharge needs.
[2021-07-29 08:33] VITALS: BP 121/72; PULSE 87; RESP 22; TEMP 37; O2SAT 94
[2021-07-29] MEDS: VANCOMYCIN/WATER (PEG) 1 GM/200 ML BAG IV (08:41)
--- NOTE | 2021-07-29 08:41 | PHA.REVIEW ---
Pharmacy Admission Review - Admission Clinical Review (Last Reviewed 07/28/21 @ 17:45 by Danny Tran MD) Cellulitis (Acute) Alcoholic cirrhosis of liver (Acute) venom-honey bee Allergy (Severe, Unverified 12/24/19 18:53) signs of stroke pregabalin [From Lyrica] Allergy (Mild, Unverified 12/24/19 18:53) varenicline tartrate [From Chantix] Adverse Reaction (Unknown, Unverified 12/24/19 18:53) Nausea Resuscitation Status Full Code Height 5 ft 6.93 in Weight 94 kg - Renal Dosing Renal Dosing: BUN 50 mg/dL (7-18) H D 07/29/21 06:48 Creatinine 1.2 mg/dL (0.70-1.30) 07/29/21 06:48 Medications needing adjustments: Reviewed (CRCL ~59ml/min) - Anticoagulation Anticoagulation: Hgb 11.4 g/dL (13.5-17.5) L 07/29/21 06:48 Hct 35.3 % (40.0-50.0) L 07/29/21 06:48 Plt Count 129 10^3/uL (130-400) L 07/29/21 06:48 Creatinine 1.2 mg/dL (0.70-1.30) 07/29/21 06:48 DVT Prophylaxis: Reviewed Medications: Heparin Therapeutic Anticoagulation: N/A - Opiate Usage Evaluate Pain Scale/Pains Meds: Reviewed Scheduled Bowel Reg ordered if on Opiates?: Yes (miralax and lactulos) - Relevant Labs Sodium 124 mmol/L (136-145) L 07/29/21 06:48 Potassium 4.3 mmol/L (3.5-5.1) 07/29/21 06:48 Chloride 91 mmol/L (98-107) L 07/29/21 06:48 Magnesium 2.2 mg/dL (1.8-2.4) 07/29/21 06:48 C-Reactive Protein 13.34 mg/dL (0.0-0.3) H 07/29/21 06:48 Electrolytes, C-Reactive P, ESR: Reviewed - DM Control DM Control: Glucose 92 mg/dL (74-106) 07/29/21 06:48 Finger Stick Blood Glucose 92 Insulin Dosing: Reviewed - Heart Failure/NH Heart Failure/NH: NT-Pro-B Natriuret Pep 102 pg/mL (<300) 07/28/21 14:15 - BP Control BP Control: Blood Pressure 121/72 Blood Pressure 102/64 Blood Pressure 111/69 If elevated: N/A - Qtc Review If Elevated: N/A - IV to PO Switch IV Medications: Reviewed (fentanyl IV and vanco IV) - Home Meds Home Med List reviewed: Reviewed (lidoderm patch not ordered) - Current meds Current Medication Order Review: Reviewed - Comments Comments/Follow Ups: UC and BC pending. vancomycin dosing per pharmacy
[2021-07-29] MEDS: HYDROmorphone 4 MG TAB PO ×2 (11:44→20:43)
[2021-07-29] MEDS: LORazepam 2 MG/ML VIAL 1 MG IVP (12:02)
[2021-07-29] MEDS: Normal Saline Flush 10 ML SYR IVP (12:04)
--- NOTE | 2021-07-29 13:27 | W.INDIABCONS ---
Date of service: 07/29/21 Time of Service: 13:27 Diabetes Inpatient Consult Reason for Visit: dm DESCRIPTION/ASSESSMENT: Pt asleep at time of visit. Chart review indicates admission with hyponatremia, cellulitis, opiod abuse, UTI, DM2 (no meds) with hx of alcoholic liver cirrohsis. BMI indicates class 1 obesity. Most recent A1C from 2020. Following low sodium diet with adequate intake. Supplemented with MVI, folate and thiamine for repletion. Not at nutritional risk at this time. INTERVENTION: none at this time PLAN: will attempt to provide education on low sodium diet prior to discharge. Recommend A1C at next blood draw Time Spent in Nutritional Counseling and Treatment: 0
[2021-07-29 14:36] VITALS: BP 112/67; PULSE 92; RESP 15; TEMP 37.3; O2SAT 93
--- NOTE | 2021-07-29 14:37 | PGE_ITS ---
Date of Service Date of service: 07/29/21 Time of Service: 14:37 Assessment and Plan Assessment and plan (1) Opioid abuse: Status: None Assessment and plan: In his history. Will require short-term opioids for BLE pain. Has high pain tolerance. D/C oxycodone and begin dilaudid 4mg Q6H prn. (2) Depression: Status: None Assessment and plan: Cont Cymbalta. (3) Hypertension: Status: None Assessment and plan: Not currently on any antihypertensive medications. Monitor. (4) Diabetes mellitus, type II: Status: None Assessment and plan: Not on medications. Random blood draw glucose normal. AC/HS glucose monitoring OK Stop fingerstick glucose monitoring. (5) Alcoholic cirrhosis of liver: Status: Acute Assessment and plan: He has not been taking lactulose. No encephalopathy noted. Will restart at 30 gr daily. Previously prescribed 45 gr TID and stopped because of intolerance to the loose stools. AST and ALT normal. Bilirubin normal. (6) Bilateral leg edema: Assessment and plan: Chronic venous stasis with significant skin changes, edema and a left lateral LE shallow ulceration. Elevated legs. Lasix 40mg IV BID; for hyponatremia. Prescribed oral lasix at home but he endorses not routinely taking his medications. (7) Hyperlipidemia: Assessment and plan: Cont Atovastatin. Lipid profile in AM (8) Cellulitis: Status: Acute Assessment and plan: Chronic venous stasis with chronic skin discoloration / erythema, maceration and breakdown of calf areas. Vancomycin initiated in ED; continue with pharmacy dosing. Gen Surgery consulted for wound assessment, possible debridement. Trend CRP. WBC count normal. No fever. Subjective Subjective Patient reports: still having pain (BLEs and back), tolerating a regular diet and afebrile; denies diarrhea, nausea, vomiting or shortness of breath Exam Narrative Exam Narrative: Lying in bed. Interactive. States he is in pain; both legs. Const General: cooperative Nutritional Appearance: obese Orientation: alert and oriented x3 Eyes General: appearance normal, both eyes and all related structures Sclera: sclerae normal Resp Effort & Inspection: normal respiratory effort Auscultation: clear to auscultation bilaterally Cardio Rate: regular rate Rhythm: regular rhythm Heart Sounds: S1 normal and S2 normal GI Palpation: soft and nontender Auscultation: normal bowel sounds Neuro General: no focal motor deficits Cranial Nerves: facial strength normal Speech: speech normal Extrem Upper/lower leg/hip images: 1. Chronic brawny skin discolaration with erythema. Thickened/firm dermis. Maceration and skin breakdown of calfs with malodorous d/c. Objective Last Vital Signs Temp 37 C 07/29/21 08:33 Pulse 87 07/29/21 08:33 Resp 22 07/29/21 08:33 BP 121/72 07/29/21 08:33 Pulse Ox 94 07/29/21 08:33 Laboratory Results - last 24 hr 07/28/21 07/28/21 07/28/21 14:15 14:15 14:15 WBC RBC Hgb Hct MCV MCH MCHC RDW Plt Count MPV Immature Gran % Neutrophils % Lymphocytes % Monocytes % Eosinophils % Basophils % Nucleated RBC % Absolute Neutrophils Absolute Lymphocytes Absolute Monocytes Absolute Eosinophils Absolute Basophils D-Dimer 3591 H VBG Lactate Sodium 120 L* Potassium 4.1 Chloride 86 L Carbon Dioxide 24.6 Anion Gap 9.4 BUN 63 H Creatinine 1.8 H Estimated GFR/1.73 m2 38.81 Glucose 128 H Calcium 8.9 Magnesium 2.6 H Total Bilirubin 0.4 AST 35 ALT 26 Alkaline Phosphatase 148 H C-Reactive Protein NT-Pro-B Natriuret Pep 102 Total Protein 8.7 H Albumin 2.8 L Triglycerides Total Cholesterol LDL Cholesterol, Calc HDL Cholesterol TSH 0.87 Urine Color Urine Clarity Urine pH Ur Specific [place] Urine Protein Urine Ketones Urine Blood Urine Nitrite Urine Bilirubin Urine Urobilinogen Ur Leukocyte Esterase Urine RBC Urine WBC Ur Epithelial Cells Urine Crystals Urine Bacteria Urine Casts Urine Mucus Ur Culture Indicated? Urine Glucose COVID-19 Source SARS-CoV-2 (PCR) Add-On Test Request 07/28/21 07/28/21 07/28/21 14:15 15:00 16:00 WBC RBC Hgb Hct MCV MCH MCHC RDW Plt Count MPV Immature Gran % Neutrophils % Lymphocytes % Monocytes % Eosinophils % Basophils % Nucleated RBC % Absolute Neutrophils Absolute Lymphocytes Absolute Monocytes Absolute Eosinophils Absolute Basophils D-Dimer VBG Lactate 1.7 H Sodium Potassium Chloride Carbon Dioxide Anion Gap BUN Creatinine Estimated GFR/1.73 m2 Glucose Calcium Magnesium Total Bilirubin AST ALT Alkaline Phosphatase C-Reactive Protein 17.33 H NT-Pro-B Natriuret Pep Total Protein Albumin Triglycerides Total Cholesterol LDL Cholesterol, Calc HDL Cholesterol TSH Urine Color Urine Clarity Urine pH Ur Specific [place] Urine Protein Urine Ketones Urine Blood Urine Nitrite Urine Bilirubin Urine Urobilinogen Ur Leukocyte Esterase Urine RBC Urine WBC Ur Epithelial Cells Urine Crystals Urine Bacteria Urine Casts Urine Mucus Ur Culture Indicated? Urine Glucose COVID-19 Source Nasal/Nares SARS-CoV-2 (PCR) Negative Add-On Test Request 07/28/21 07/28/21 07/29/21 20:03 Unknown 01:20 WBC RBC Hgb Hct MCV MCH MCHC RDW Plt Count MPV Immature Gran % Neutrophils % Lymphocytes % Monocytes % Eosinophils % Basophils % Nucleated RBC % Absolute Neutrophils Absolute Lymphocytes Absolute Monocytes Absolute Eosinophils Absolute Basophils D-Dimer VBG Lactate Sodium 122 L* Potassium 4.5 Chloride 89 L Carbon Dioxide 22.1 Anion Gap 10.9 BUN 62 H Creatinine 1.5 H Estimated GFR/1.73 m2 47.90 Glucose 125 H Calcium 8.6 Magnesium Total Bilirubin AST ALT Alkaline Phosphatase C-Reactive Protein NT-Pro-B Natriuret Pep Total Protein Albumin Triglycerides Total Cholesterol LDL Cholesterol, Calc HDL Cholesterol TSH Urine Color Yellow Urine Clarity Sl Cloudy Urine pH 5.5 Ur Specific [place] 1.020 Urine Protein Negative Urine Ketones Negative Urine Blood Moderate H Urine Nitrite Negative Urine Bilirubin Negative Urine Urobilinogen 1.0 H Ur Leukocyte Esterase Negative Urine RBC 5-10 H Urine WBC 3-5 Ur Epithelial Cells Few Urine Crystals Negative Urine Bacteria Moderate Urine Casts Negative Urine Mucus Negative Ur Culture Indicated? Yes Urine Glucose Negative COVID-19 Source SARS-CoV-2 (PCR) Add-On Test Request DONE 07/29/21 07/29/21 07/29/21 06:48 06:48 06:48 WBC 8.32 RBC 4.51 Hgb 11.4 L Hct 35.3 L MCV 78.3 L MCH 25.3 L MCHC 32.3 RDW 16.8 H Plt Count 129 L MPV 9.4 Immature Gran % 0.7 Neutrophils % 83.1 Lymphocytes % 7.7 Monocytes % 8.1 Eosinophils % 0.2 Basophils % 0.2 Nucleated RBC % 0 Absolute Neutrophils 6.91 H Absolute Lymphocytes 0.64 L Absolute Monocytes 0.67 Absolute Eosinophils 0.02 Absolute Basophils 0.02 D-Dimer VBG Lactate 0.9 Sodium 124 L Potassium 4.3 Chloride 91 L Carbon Dioxide 24.8 Anion Gap 8.2 BUN 50 H D Creatinine 1.2 Estimated GFR/1.73 m2 >= 60.00 Glucose 92 Calcium 8.3 L Magnesium 2.2 Total Bilirubin 0.7 AST 28 ALT 25 Alkaline Phosphatase 129 H C-Reactive Protein 13.34 H NT-Pro-B Natriuret Pep Total Protein 7.3 Albumin 2.4 L Triglycerides 60 Total Cholesterol 114 LDL Cholesterol, Calc 48 HDL Cholesterol 54 TSH Urine Color Urine Clarity Urine pH Ur Specific [place] Urine Protein Urine Ketones Urine Blood Urine Nitrite Urine Bilirubin Urine Urobilinogen Ur Leukocyte Esterase Urine RBC Urine WBC Ur Epithelial Cells Urine Crystals Urine Bacteria Urine Casts Urine Mucus Ur Culture Indicated? Urine Glucose COVID-19 Source SARS-CoV-2 (PCR) Add-On Test Request
--- NOTE | 2021-07-29 14:47 | W.SURGCON ---
Documented by User: RANDY Pierre 07/29/21 15:35 Date of service: 07/29/21 Time of Service: 14:47 Assessment and Plan Assessment and plan (1) Cellulitis: Status: Acute Assessment and plan: Significant swelling and erythema throughout demetrius. LE's. It's difficult to assess the extent of the patient's wound secondary to his level of discomfort with elevating the LE's and he is not able to tolerate palpation of his LE's. Large Pressure wounds on bilateral posterior calves. The tissue has a mixed appearance of slough and necrotic tissue. No Fevers or elevated WBC. CRP elevated at 13.34 ER attempted US of Demetrius. LE's however patient did not tolerate this and refused to proceed with the exam. Checked pulses with doppler, good pedal pulses and posterior tibial. Will make patient NPO after midnight. Will discuss case with anesthesia. Possible surgical debridement tomorrow or . (2) Ambulatory dysfunction: Status: Acute (3) Diabetes mellitus, type II: Status: None History of Present Illness Narrative: 61 y/o male with a history of Type 2 DM, opioid abuse, ETOH absue, TIA, HTN, GERD and Hep. C is seen for further evaluation of bilateral LE celluitis, swelling and severe pain. Patient states that over the past 3-4 days he has progressively been unable to ambulate and mobilize secondary to demetrius. LE pain. He states that he rents a room from a friend and this friend performs of his ADLs for him (cooking, cleaning, laundry). Patient states that his has never happened before and he has never had any issues with his legs in the past. He states they are very painful and he is having a burning sensation throughout both LE's. Patient reports smoking about 1 pack of cigarettes/day, drinks 1/5th of Whiskey/day and he states he also currently uses cocaine. Last use 2 days ago. Denies current use of marijuana, IV drugs or any other recreational or illegal drugs. Review of Systems Constitutional Constitutional: Denies body ache(s), Denies chills and Denies fever(s) [facility] All Active Problems (Updated 07/28/21 @ 17:48 by Danny Tran MD) Cellulitis (Acute) UTI (urinary tract infection) (Acute) Ambulatory dysfunction (Acute) Discharge planning issues (Acute) Fall (Acute) Alcoholic cirrhosis of liver (Acute) Lactic acidosis (Acute) Dehydration (Acute) Alcohol withdrawal (Acute) TIA (transient ischemic attack) (Acute) Alcohol withdrawal syndrome (Acute 01/15/13) Continuous chronic alcoholism (Acute 01/15/13) Acute pancreatitis (Acute 01/15/13) Acquired thrombocytopenia (Acute 01/15/13) Medical History Acute alcohol intoxication Alcohol dependence Anemia Arthritis Bilateral leg edema Chronic pain Cirrhosis of liver Diabetic peripheral neuropathy Encephalopathy, hepatic Hepatitis C Hyperlipidemia Knee pain, right TIA (transient ischemic attack) Ulnar neuropathy Urinary retention Surgical History H/O cervical spine surgery Hx of total knee arthroplasty Social History Smoking/Tobacco Use Status: Current every day Tobacco Type: cigarettes and e-cigarettes Smoking risk assessment performed?: Yes Alcohol Intake: current Alcohol Intake frequency: 3 or more drinks per day Drug use: Daily Substance use type: marijuana Housing: apartment Number of Children: 3 What type of physical activity do you participate in: walking Do you feel safe at home: Yes Do you feel safe in your relationship?: Yes Exam Const General: cooperative, in distress mild and ill appearing Orientation: alert and oriented x3 Resp Effort & Inspection: normal respiratory effort, no audible wheezes and no cough Skin Other: Left LE- Significant swelling, erythema extending from the foot to inferior knee. Numerous lesions throughout with crusting. Posterior calf, pressure ulcer noted with serous drainage and mix of slough and necrotic tissue. Right LE- Moderate amount of swelling, erythema extending from ankle to the knee. Numerous lesions throughout with crusting. Posterior calf, large pressure ulcer with moderate sized necrotic/slough tissue. Unable to palpate pulses secondary to edema. Anterior Surface of Bilateral LE's: Posterior Right Calf: Left Lateral Calf: Posterior Left Calf: Results Last Vital Signs Temp 37.3 C 07/29/21 14:36 Pulse 92 H 07/29/21 14:36 Resp 15 07/29/21 14:36 BP 112/67 07/29/21 14:36 Pulse Ox 93 07/29/21 14:36 Labs Result diagrams: 07/29/21 06:48 07/29/21 06:48 Labs: Laboratory Results - last 24 hr 07/28/21 07/28/21 07/28/21 14:15 14:15 14:15 WBC RBC Hgb Hct MCV MCH MCHC RDW Plt Count MPV Immature Gran % Neutrophils % Lymphocytes % Monocytes % Eosinophils % Basophils % Nucleated RBC % Absolute Neutrophils Absolute Lymphocytes Absolute Monocytes Absolute Eosinophils Absolute Basophils D-Dimer 3591 H VBG Lactate Sodium 120 L* Potassium 4.1 Chloride 86 L Carbon Dioxide 24.6 Anion Gap 9.4 BUN 63 H Creatinine 1.8 H Estimated GFR/1.73 m2 38.81 Glucose 128 H Calcium 8.9 Magnesium 2.6 H Total Bilirubin 0.4 AST 35 ALT 26 Alkaline Phosphatase 148 H C-Reactive Protein NT-Pro-B Natriuret Pep 102 Total Protein 8.7 H Albumin 2.8 L Triglycerides Total Cholesterol LDL Cholesterol, Calc HDL Cholesterol TSH 0.87 Urine Color Urine Clarity Urine pH Ur Specific [employer] Urine Protein Urine Ketones Urine Blood Urine Nitrite Urine Bilirubin Urine Urobilinogen Ur Leukocyte Esterase Urine RBC Urine WBC Ur Epithelial Cells Urine Crystals Urine Bacteria Urine Casts Urine Mucus Ur Culture Indicated? Urine Glucose COVID-19 Source SARS-CoV-2 (PCR) Add-On Test Request 07/28/21 07/28/21 07/28/21 14:15 15:00 16:00 WBC RBC Hgb Hct MCV MCH MCHC RDW Plt Count MPV Immature Gran % Neutrophils % Lymphocytes % Monocytes % Eosinophils % Basophils % Nucleated RBC % Absolute Neutrophils Absolute Lymphocytes Absolute Monocytes Absolute Eosinophils Absolute Basophils D-Dimer VBG Lactate 1.7 H Sodium Potassium Chloride Carbon Dioxide Anion Gap BUN Creatinine Estimated GFR/1.73 m2 Glucose Calcium Magnesium Total Bilirubin AST ALT Alkaline Phosphatase C-Reactive Protein 17.33 H NT-Pro-B Natriuret Pep Total Protein Albumin Triglycerides Total Cholesterol LDL Cholesterol, Calc HDL Cholesterol TSH Urine Color Urine Clarity Urine pH Ur Specific [employer] Urine Protein Urine Ketones Urine Blood Urine Nitrite Urine Bilirubin Urine Urobilinogen Ur Leukocyte Esterase Urine RBC Urine WBC Ur Epithelial Cells Urine Crystals Urine Bacteria Urine Casts Urine Mucus Ur Culture Indicated? Urine Glucose COVID-19 Source Nasal/Nares SARS-CoV-2 (PCR) Negative Add-On Test Request 07/28/21 07/28/21 07/29/21 20:03 Unknown 01:20 WBC RBC Hgb Hct MCV MCH MCHC RDW Plt Count MPV Immature Gran % Neutrophils % Lymphocytes % Monocytes % Eosinophils % Basophils % Nucleated RBC % Absolute Neutrophils Absolute Lymphocytes Absolute Monocytes Absolute Eosinophils Absolute Basophils D-Dimer VBG Lactate Sodium 122 L* Potassium 4.5 Chloride 89 L Carbon Dioxide 22.1 Anion Gap 10.9 BUN 62 H Creatinine 1.5 H Estimated GFR/1.73 m2 47.90 Glucose 125 H Calcium 8.6 Magnesium Total Bilirubin AST ALT Alkaline Phosphatase C-Reactive Protein NT-Pro-B Natriuret Pep Total Protein Albumin Triglycerides Total Cholesterol LDL Cholesterol, Calc HDL Cholesterol TSH Urine Color Yellow Urine Clarity Sl Cloudy Urine pH 5.5 Ur Specific [employer] 1.020 Urine Protein Negative Urine Ketones Negative Urine Blood Moderate H Urine Nitrite Negative Urine Bilirubin Negative Urine Urobilinogen 1.0 H Ur Leukocyte Esterase Negative Urine RBC 5-10 H Urine WBC 3-5 Ur Epithelial Cells Few Urine Crystals Negative Urine Bacteria Moderate Urine Casts Negative Urine Mucus Negative Ur Culture Indicated? Yes Urine Glucose Negative COVID-19 Source SARS-CoV-2 (PCR) Add-On Test Request DONE 07/29/21 07/29/21 07/29/21 06:48 06:48 06:48 WBC 8.32 RBC 4.51 Hgb 11.4 L Hct 35.3 L MCV 78.3 L MCH 25.3 L MCHC 32.3 RDW 16.8 H Plt Count 129 L MPV 9.4 Immature Gran % 0.7 Neutrophils % 83.1 Lymphocytes % 7.7 Monocytes % 8.1 Eosinophils % 0.2 Basophils % 0.2 Nucleated RBC % 0 Absolute Neutrophils 6.91 H Absolute Lymphocytes 0.64 L Absolute Monocytes 0.67 Absolute Eosinophils 0.02 Absolute Basophils 0.02 D-Dimer VBG Lactate 0.9 Sodium 124 L Potassium 4.3 Chloride 91 L Carbon Dioxide 24.8 Anion Gap 8.2 BUN 50 H D Creatinine 1.2 Estimated GFR/1.73 m2 >= 60.00 Glucose 92 Calcium 8.3 L Magnesium 2.2 Total Bilirubin 0.7 AST 28 ALT 25 Alkaline Phosphatase 129 H C-Reactive Protein 13.34 H NT-Pro-B Natriuret Pep Total Protein 7.3 Albumin 2.4 L Triglycerides 60 Total Cholesterol 114 LDL Cholesterol, Calc 48 HDL Cholesterol 54 TSH Urine Color Urine Clarity Urine pH Ur Specific [employer] Urine Protein Urine Ketones Urine Blood Urine Nitrite Urine Bilirubin Urine Urobilinogen Ur Leukocyte Esterase Urine RBC Urine WBC Ur Epithelial Cells Urine Crystals Urine Bacteria Urine Casts Urine Mucus Ur Culture Indicated? Urine Glucose COVID-19 Source SARS-CoV-2 (PCR) Add-On Test Request
[2021-07-29 18:27] VITALS: PULSE 88; O2SAT 96
[2021-07-29] MEDS: Atorvastatin 40 MG TAB PO (20:44)
[2021-07-29 20:45] VITALS: RESP 18
[2021-07-29 23:28] VITALS: BP 102/68; PULSE 78; RESP 15; TEMP 36.9; O2SAT 93
[2021-07-30] VITALS (8 sets, daily range): BP systolic 108–137; BP diastolic 70–96; PULSE 78–102; RESP 16–18; TEMP 35.9–38.2; O2SAT 92–96; BMI 32.5
[2021-07-30] MEDS: VANCOMYCIN/WATER (PEG) 1 GM/200 ML BAG IV ×2 (00:11→16:45)
[2021-07-30] MEDS: traZODone 50 MG TAB PO ×2 (00:11→21:11)
[2021-07-30 06:33] LABS: HCT 34.3 % (40.0-50.0); HGB 11.2 g/dL (13.5-17.5); MCH 25.6 pg (27.0-33.0); MCHC 32.7 % (32.0-36.0); MCV 78.3 fL (80-95); MPV 9.7 fL (8.0-11.0); Platelet Count 131 10^3/uL (130-400); RBC 4.38 10^6/uL (4.36-5.78); RDW 17.1 % (11.8-14.1); RDW-SD 48.4 fL; WBC 5.32 10^3/uL (4.4-10.8)
[2021-07-30 06:53] LABS: Anion Gap 4.7 mmol/L (3-11); BUN 41 mg/dL (7-18); C-Reactive Protein 11.73 mg/dL (0.0-0.3); CO2 28.3 mmol/L (21.0-32.0); CREATININE 1.1 mg/dL (0.70-1.30); Calcium 8.3 mg/dL (8.5-10.1); Chloride 95 mmol/L (98-107); Glucose 162 mg/dL (74-106); Potassium 3.7 mmol/L (3.5-5.1); Sodium 128 mmol/L (136-145)
--- NOTE | 2021-07-30 07:04 | ANES.PREOP_ITS ---
General Info Date of Service Date Performed: 07/30/21 Height: 5 ft 6.93 in Weight: 94 kg Body Mass Index (BMI): 32.5 Surgical Procedure: Operation Date: 07/30/21 15:55 Proposed Procedure Side Surgeon p Debridement Lower Extremity (Calves) Bilateral Nicolette Stearns MD Meds Allergies and Home Medications Allergies Allergy/AdvReac Type Severity Reaction Status Date / Time venom-honey bee Allergy Severe signs of Unverified 12/24/19 18:53 stroke pregabalin [From Lyrica] Allergy Mild Unverified 12/24/19 18:53 varenicline tartrate AdvReac Unknown Nausea Unverified 12/24/19 18:53 [From Chantix] Home Medication Medication Instructions Recorded epinephrine 0.3 mg/0.3 mL 0.3 mg IM DIRECTED PRN 01/15/13 injection, auto-injector atorvastatin 40 mg tablet (Lipitor) 40 mg PO QPM 08/19/16 lactulose 10 gram/15 mL oral 45 gm PO TID 08/19/16 solution (Constulose) magnesium oxide 400 mg (241.3 mg 400 mg PO BID 11/19/16 magnesium) tablet multivitamin 1 ea PO DAILY 11/19/16 thiamine mononitrate (vit B1) 100 100 mg PO DAILY 11/19/16 mg tablet (Vitamin B-1 (mononitrate)) aspirin 81 mg tablet,delayed 81 mg PO DAILY tab-cap 03/15/17 release (Aspir-) lidocaine 5 % topical patch 1 patch TOPICAL Q24H #4 patch 10/30/18 (Lidoderm) pantoprazole 20 mg tablet,delayed 20 mg PO DAILY 11/01/19 release (Protonix) duloxetine 30 mg capsule,delayed 30 mg PO DAILY cap 07/18/21 release (Cymbalta) furosemide 20 mg tablet 40 mg PO BID tab-cap 07/18/21 spironolactone 50 mg tablet 50 mg PO DAILY tab-cap 07/18/21 tamsulosin 0.4 mg capsule (Flomax) 0.8 mg PO DAILY cap 07/18/21 trazodone 50 mg tablet 50 mg PO DAILY 07/18/21 polyethylene glycol 3350 17 17 g PO DAILY PRN PRN 07/28/21 gram/dose oral powder (Miralax) Current Visit Medications: Current Medications Generic Name Dose Route Start Last Admin Trade Name Freq PRN Reason Stop Dose Admin Acetaminophen 0 mg 07/28/21 15:52 07/28/21 20:03 Acetaminophen 325 Mg Tab PO 650 mg Q4H PRN PRN Administration Aspirin 81 mg 07/29/21 08:30 07/29/21 08:23 Aspirin E.C. 81 Mg Tabec PO 81 mg DAILY SUSANA Administration Atorvastatin Calcium 40 mg 07/28/21 20:00 07/29/21 20:44 Atorvastatin 40 Mg Tab PO 40 mg QPM SUSANA Administration Dextrose 0 gm 07/28/21 17:46 Glucose 40% Oral Solution 15 Gm/37.5 Gm Tube PO DIRECTED PRN Dextrose/Water 0 gm 07/28/21 17:46 Dextrose 50%-Water 25 Gm/50 Ml Syr IVP DIRECTED PRN Dimethicone/Zinc Oxide 0 gm 07/28/21 15:46 Christian Protect Cream 142 Gm Tube TP PRN PRN Duloxetine HCl 30 mg 07/29/21 08:30 07/29/21 08:23 Duloxetine 30 Mg Cap PO 30 mg DAILY SUSANA Administration Furosemide 40 mg 07/28/21 18:00 07/29/21 17:03 Furosemide 40 Mg/4 Ml Vial IVP 40 mg BID PC SUSANA Administration Heparin Sodium (Porcine) 5,000 units 07/28/21 18:00 07/30/21 01:27 Heparin 5,000 Units/Ml Vial SC Not Given Q8H SUSANA Hydromorphone HCl 4 mg 07/29/21 11:05 07/29/21 20:43 Hydromorphone 4 Mg Tab PO 4 mg Q6H PRN PRN Administration Hydromorphone HCl 1 mg 07/29/21 14:41 Hydromorphone 2 Mg/Ml Syr IVP Q3H PRN PRN Vancomycin/PEG/NADA/Lysine/Water 1 gm in 200 mls @ 0 mls/hr 07/29/21 08:00 07/30/21 00:11 Vancocin Injection IV 134 mls/hr Q16H SUSANA Administration Protocol As Directed IV Miscellaneous Supplies 1 each 07/28/21 14:30 Iv Access IV DIRECTED SUSANA Lactulose 30 gm 07/29/21 08:30 07/29/21 08:24 Lactulose 20 Gm/30 Ml Cup PO Not Given DAILY SUSANA Lorazepam 0 mg 07/29/21 15:56 Lorazepam 1 Mg Tab PO/SL DIRECTED PRN Morphine Sulfate 6 mg 07/29/21 11:09 07/29/21 12:03 Morphine 10 Mg/Ml Syr IVP 6 mg Q4H PRN PRN Administration Multivitamins 1 tab 07/29/21 08:30 07/29/21 08:23 Multivitamin Tab PO 1 tab DAILY SUSANA Administration Polyethylene Glycol 17 gm 07/28/21 19:00 07/29/21 08:25 Polyethylene Glycol 3350 17 Gm Packet PO 17 gm DAILY SUSANA Administration Sodium Chloride 0 ml 07/28/21 14:17 07/29/21 12:04 Normal Saline Flush 10 Ml Syr IVP 20 ml PRN PRN Administration Spironolactone 50 mg 07/29/21 08:30 07/29/21 08:23 Spironolactone 50 Mg Tab PO 50 mg DAILY SUSANA Administration Tamsulosin HCl 0.8 mg 07/29/21 08:30 07/29/21 08:23 Tamsulosin 0.4 Mg Capcr PO 0.8 mg DAILY SUSANA Administration Thiamine HCl 100 mg 07/29/21 08:30 07/29/21 08:23 Thiamine 100 Mg Tab PO 100 mg DAILY SUSANA Administration Trazodone HCl 50 mg 07/29/21 22:00 07/30/21 00:11 Trazodone 50 Mg Tab PO 50 mg HS SUSANA Administration PFSH Active Problems Active Problems: Problem Status Onset Code Cellulitis L03.90 UTI (urinary tract infection) N39.0 Ambulatory dysfunction R26.2 Fever R50.9 Discharge planning issues Z02.9 Fall W19.XXXA Alcoholic cirrhosis of liver K70.30 Lactic acidosis E87.2 Dehydration E86.0 Alcohol withdrawal F10.239 TIA (transient ischemic attack) G45.9 Alcohol withdrawal syndrome 01/15/13 F10.239 Continuous chronic alcoholism 01/15/13 F10.20 Acute pancreatitis 01/15/13 K85.9 Acquired thrombocytopenia 01/15/13 D69.59 Medical History Medical History Acute alcohol intoxication Alcohol dependence Anemia Arthritis Bilateral leg edema Chronic pain Cirrhosis of liver Diabetic peripheral neuropathy Encephalopathy, hepatic Hepatitis C Hyperlipidemia Knee pain, right TIA (transient ischemic attack) Ulnar neuropathy Urinary retention Surgical History Surgical History H/O cervical spine surgery Hx of total knee arthroplasty Tobacco Smoking/Tobacco Use Status: Current every day Tobacco Type: cigarettes and e- cigarettes Alcohol Alcohol Intake: current Alcohol intake frequency: 3 or more drinks per day Substance Use Substance use: Daily Substance use type: marijuana Vital Signs and Lab Results Vital Signs Most Recent Vital Signs in EMR: Most Recent Vital Signs Temp Pulse Resp BP Pulse Ox 36.9 C 78 15 102/68 93 07/29/21 23:28 07/29/21 23:28 07/29/21 23:28 07/29/21 23:28 07/29/21 23:28 Point of Care Results Point of Care Results: Finger Stick Blood Glucose 96 07/29/21 17:02 Lab Results Result Diagrams: 07/30/21 06:12 07/30/21 06:12 Blood Type / Crossmatch: No Data to Display Complete Blood Count: White Blood Count 5.32 10^3/uL (4.4-10.8) 07/30/21 06:12 07/30/21 Red Blood Count 4.38 10^6/uL (4.36-5.78) 07/30/21 06:12 07/30/21 Hemoglobin 11.2 g/dL (13.5-17.5) L 07/30/21 06:12 07/30/21 Hematocrit 34.3 % (40.0-50.0) L 07/30/21 06:12 07/30/21 Platelet Count 131 10^3/uL (130-400) 07/30/21 06:12 07/30/21 Venous Blood Lactate 0.9 mmol/L (0.6-1.4) 07/29/21 06:48 07/29/21 Complete Metabolic Panel: Sodium Level 128 mmol/L (136-145) L 07/30/21 06:12 07/30/21 Potassium Level 3.7 mmol/L (3.5-5.1) 07/30/21 06:12 07/30/21 Chloride Level 95 mmol/L (98-107) L 07/30/21 06:12 07/30/21 Carbon Dioxide Level 28.3 mmol/L (21.0-32.0) 07/30/21 06:12 07/30/21 Blood Urea Nitrogen 41 mg/dL (7-18) H 07/30/21 06:12 07/30/21 Creatinine 1.1 mg/dL (0.70-1.30) 07/30/21 06:12 07/30/21 Estimated GFR/1.73 m2 >= 60.00 (mL/min/1.73m2) 07/30/21 06:12 07/30/21 Magnesium Level 2.2 mg/dL (1.8-2.4) 07/29/21 06:48 07/29/21 Calcium Level 8.3 mg/dL (8.5-10.1) L 07/30/21 06:12 07/30/21 Albumin 2.4 g/dL (3.4-5.0) L 07/29/21 06:48 07/29/21 Glucose Level 162 mg/dL (74-106) H 07/30/21 06:12 07/30/21 C-Reactive Protein 11.73 mg/dL (0.0-0.3) H 07/30/21 06:12 07/30/21 Liver Function Panel: Alanine Aminotransferase (ALT/SGPT) 25 U/L (16-63) 07/29/21 06:48 07/29/21 Aspartate Amino Transf (AST/SGOT) 28 U/L (15-37) 07/29/21 06:48 07/29/21 Coagulation Panel: INR International Normalized Ratio 1.0 (0.9-1.1) 07/04/21 15:06 07/04/21 Prothrombin Time 10.2 sec (9.3-11.0) 07/04/21 15:06 07/04/21 D-Dimer 3591 ng/mlFEU (<500) H 07/28/21 14:15 07/28/21 Cardiac Panel: VX-Ndt-E-Type Natriuretic Peptide 102 pg/mL (<300) 07/28/21 Arterial Blood Gas: No Data to Display Venous Blood Gas: No Data to Display Pancreas Panel: No Data to Display Thyroid Panel: Thyroid Stimulating Hormone (TSH) 0.87 uIU/mL (0.36-3.74) 07/28/21 14:15 07/28/21 Infectious Disease: Coronavirus (COVID-19)(PCR) Negative (Negative) 07/28/21 16:00 07/28/21 Coronavirus 2019 Source Nasal/Nares 07/28/21 16:00 07/28/21 HIV (1&2) Ag and Ab, 4th Generation Negative (Negative) 07/04/21 15:06 07/04/21 Hepatitis C RNA Quantitative Not Applicable 07/04/21 15:06 07/04/21 Blood Cultures: No Data to Display Toxicology Panel: No Data to Display Imaging and Studies Imaging and Studies Study information below may be from another EMR and interpreted by another provider. Please see original notes in EMR for more complete details. EKG Summary: Conclusion EKG 12: 51 Rate 82, QTc 472, intervals otherwise normal, no significant ST elevation or depression. No evidence of STEMI. Q waves are noted in lead III. Carotid Artery Summary:: IMPRESSION: Minimal calcific plaque. No evidence of a significant internal carotid artery stenosis. Anesthesia Assessment and Plan Anesthesia History Personal History: No History of Anesthesia Complications Family History: No Family History of Anesthesia Complications Exercise Tolerance Exercise Tolerance: Metabolic Equivalents>4 Cardiac & Pulmonary Exam Cardiac Exam: Normal S1/S2 Heart Sounds Pulmonary Exam: Clear Bilateral Breath Sounds Implantable Cardiac Device Does patient have a Pacemaker or an ICD?: No Airway Exam Known Difficult Airway: No Mallampati Class: 3 Mouth Opening: Narrow (< 3cm) Thyromental Distance: Less than 3 cm Neck Range of Motion: Limited ROM Neck Circumference: Normal Teeth Condition: Edentulous ASA Classification ASA Score: ASA 3 Emergency Case?: No NPO Status NPO Status: NPO Clears >2 hours, Solids >8 hours Anesthesia Plan Resuscitation Status: Full Code Anesthesia Technique: General Anesthesia Airway Planned: Endotracheal Tube Monitors Used: Standard Monitors Preoperative Comments:: 61 yo male with bilateral LE ulcers to OR for debridement. Previous alcohol use, denies currently. Current Cocaine use, last use three days ago per patient. PMHX: CVA/TIA, Hepatitis C, narcotic abuse, ETOH abuse, DM II, hepatic encephalopathy, alcoholic encephalopathy. HTN, C7 fracture with subsequent repair. Peritonsillar abscesses. Previous Anes: cmac grade 1, easy mask - but previous ? difficult mask with 100 mm OPA and two hands.
[2021-07-30] MEDS: Normal Saline Flush 10 ML SYR IVP (08:27)
[2021-07-30] MEDS: Furosemide 40 MG/4 ML VIAL IVP ×2 (08:27→16:45)
[2021-07-30] MEDS: HYDROmorphone 4 MG TAB PO ×2 (10:08→17:08)
[2021-07-30] MEDS: Gabapentin 300 MG CAP PO ×3 (10:08→21:12)
--- NOTE | 2021-07-30 10:31 | PDOC.CMPRO ---
- If Service Date Differs Date of service: 07/30/21 Time of Service: 10:31 Care Management Progress Note S/O:Jackson was lying in bed when CM met with him. He was waiting to go to surgery to have the wounds on his lower extremities debrided. Jackson requested that CM get him some ice chips as he was thirsty. CM explained that he was NPO for surgery and Jackson became agitated and upset. Since his surgery was scheduled to begin shortly, the ice chips were not provided. A: Jackson is a 61 year old man admitted on 07/28/21 with Hyponatremia and cellulitis P:Jackson will likely be discharged home, possibly with new home health services. He will follow up with his PCP and community providers and transport with a friend. CM will continue to support Jackson and his discharge needs.
[2021-07-30] MEDS: HYDROmorphone 2 MG/ML SYR 1 MG IVP (13:46)
--- NOTE | 2021-07-30 13:49 | W.PM.PROGNOT ---
Date of Service Date of service: 07/30/21 Time of Service: 13:50 Assessment and Plan Assessment and plan (1) Opioid abuse: Status: None Assessment and plan: In his history. Will require short-term opioids for BLE pain. Has high pain tolerance. Cont. dilaudid 4mg Q6H prn with prn morphine 6mg Q4H; use the later before dressing changes or transfers. Pain in legs described as burning. Increase Cymbalta to 60mg daily. Begin gabapentin 300mg TID; aware of stated Lyrica allergy that sounds to be an intolerance not an allergy. (2) Depression: Status: None Assessment and plan: Increase Cymbalta to 60mg daily to help with BLE pain;burning type pain. (3) Hypertension: Status: None Assessment and plan: Not currently on any antihypertensive medications. Monitor. (4) Diabetes mellitus, type II: Status: None Assessment and plan: Not on medications. Random blood draw glucose normal. AC/HS glucose monitoring OK Stopped fingerstick glucose monitoring. (5) Alcoholic cirrhosis of liver: Status: Acute Assessment and plan: He has not been taking lactulose. No encephalopathy noted. Will restart at 30 gr daily. Previously prescribed 45 gr TID and stopped because of intolerance to the loose stools. AST and ALT normal. Bilirubin normal. (6) Bilateral leg edema: Assessment and plan: Chronic venous stasis with significant skin changes, edema and a left lateral LE shallow ulceration. Elevated legs. Lasix 40mg IV BID; for hyponatremia. Prescribed oral lasix at home but he endorses not routinely taking his medications. Surgery planning to debride BLE wounds and place Unna boots today. (7) Hyperlipidemia: Assessment and plan: Cont Atovastatin. Lipid profile in AM (8) Cellulitis: Status: Acute Assessment and plan: Chronic venous stasis with chronic skin discoloration / erythema, maceration and breakdown of calf areas. Vancomycin initiated in ED; continue with pharmacy dosing. MRSA nasal swab +. CRP trending down. WBC count normal. No fever. (9) Polysubstance abuse: Status: Acute Assessment and plan: Admits to using cocaine and alcohol. On CIWA monitoring with benzodiazapine protocol. Subjective Subjective Patient reports: no new complaints, still having pain and afebrile; denies nausea, vomiting or shortness of breath Exam Narrative Exam Narrative: Lying in bed. Interactive. States he is in pain; both legs. Const General: cooperative Nutritional Appearance: obese Orientation: alert and oriented x3 Eyes General: appearance normal, both eyes and all related structures Sclera: sclerae normal Resp Effort & Inspection: normal respiratory effort Auscultation: clear to auscultation bilaterally Cardio Rate: regular rate Rhythm: regular rhythm Heart Sounds: S1 normal and S2 normal GI Palpation: soft and nontender Auscultation: normal bowel sounds Skin Full body images: 1. Below the knees: thickened, red/brawny skin color changes with superficial ulcers particularly posteriorly. Neuro General: no focal motor deficits Cranial Nerves: facial strength normal Speech: speech normal Psych Speech and Movement: speech clear Affect: blunted Objective Last Vital Signs Temp 36.9 C 07/30/21 07:36 Pulse 83 07/30/21 07:36 Resp 18 07/30/21 07:36 BP 122/71 07/30/21 07:36 Pulse Ox 95 07/30/21 07:36 Laboratory Results - last 24 hr 07/30/21 07/30/21 06:12 06:12 WBC 5.32 D RBC 4.38 Hgb 11.2 L Hct 34.3 L MCV 78.3 L MCH 25.6 L MCHC 32.7 RDW 17.1 H Plt Count 131 MPV 9.7 Sodium 128 L Potassium 3.7 Chloride 95 L Carbon Dioxide 28.3 Anion Gap 4.7 BUN 41 H D Creatinine 1.1 Estimated GFR/1.73 m2 >= 60.00 Glucose 162 H Calcium 8.3 L C-Reactive Protein 11.73 H
[2021-07-30] MEDS: Lactated Ringers 1,000 ML 30 ML IV (14:51)
--- NOTE | 2021-07-30 16:13 | W.PM.OP ---
Date of service: 07/30/21 Time of Service: 16:13 Operative Note Operative Note DATE OF PROCEDURE: 07/30/21 PRE-OP DIAGNOSIS: Venous stasis and pressure ulcers of posterior bilateral lower extremities POST-OP DIAGNOSIS: same PROCEDURE: Debridement of wound SURGEON: Nicolette Stearns ALTERATION SPECIALIST: Marsha Ren ANESTHESIA TYPE: General LMA/ETT Refer to Anesthesia Record ESTIMATED BLOOD LOSS: 50 PATHOLOGY: none sent COMPLICATIONS: None Patient was transported to: PACU Patient's condition: stable Implants: None Indications: Significant swelling and erythema throughout luis angel. LE's. It's difficult to assess the extent of the patient's wound secondary to his level of discomfort with elevating the LE's and he is not able to tolerate palpation of? his LE's. Large Pressure wounds on bilateral posterior calves. The tissue has a mixed appearance of slough and necrotic tissue. Findings: dry skin and necrotic tissue Procedure Description: After informed consent was obtained in PACU the patient was taken to the Operating room and placed under general anesthesia and intubated. Once intubated a time out was done. The patients name, , allergies to medications, antibiotic prophilaxis, procedure to be done and location were reviewed. Fire risk was assessed. Next the patients anterior portion of his Lower extremities were cleaned and scrubbed with Chlorhexidine. Once the skin was cleaned and dried he was placed on the OR table in a prone position. Once prone the calves were prepped and draped in a sterile fashion. Using a currette and a 10 blade the necrotic tissue was removed and sent to the lab for cultures. The right leg tissue was sent separate from the left leg tissue. The wounds were scrubbed with chlorhexidine. Once all the necrotic tissue was sharply removed the wound were irrigated with iodine and then cleaned with saline. The left leg wound measured 15 x 10 cm. The deepest area was 2 cm deep. The right leg wound measured 16 x 9 cm. The deepest part was just a few milimiters. At this point the wounds were cleaned and Aquacel Ag was applied over the wounds. Kerlix was applied over the Aquacel. Lastly an FAUSTINO bandage was applied to hold the kerlix in place. The patient was then turned and placed back onto the [facility]. He was woken up, extubated and taken back to PACU in stable condition. Needle, sponge and instrument count was correct at the end of the case.
[2021-07-30] MEDS: fentaNYL 100 MCG/2 ML VIAL IVP ×2 (16:16→16:23)
--- NOTE | 2021-07-30 16:53 | W.ANESPOSTOP ---
Postoperative Evaluation Date, Time and Location Date Performed: 07/30/21 Time Performed: 16:53 Patient Location: PACU Vital Signs Most Recent Imported Vital Signs: Most Recent Vital Signs Temp Pulse Resp BP Pulse Ox 36.6 C 99 H 18 128/77 95 07/30/21 16:17 07/30/21 16:17 07/30/21 16:17 07/30/21 16:17 07/30/21 16:17 Pain Score Most Recent Pain Score: Most Recent Pain Score Pain Level 10 07/30/21 16:17 Assessment Mental Status: Awake (Alert & Oriented to Patient Baseline) Airway and Respiratory Function: Patent airway with normal (patient baseline) respiratory exam Cardiovascular Function: Hemodynamically Stable Hydration Status: Adequately Hydrated Nausea & Vomiting: No Nausea or Vomiting Pain: Pain is Moderate or Severe Postoperative Pain Management: Pain being addressed with medication (To be transferred to Med/Surg. Patient falls asleep in between requesting pain medicine. Patient has been treated by PACU RNs. ) Peripheral Nerve Block: Patient did not receive a nerve block
[2021-07-30] MEDS: Atorvastatin 40 MG TAB PO (21:12)
[2021-07-30] MEDS: Acetaminophen 325 MG TAB PO (23:06)
[2021-07-30] MEDS: Lactated Ringers 500 ML IV (23:07)
[2021-07-31 00:17] VITALS: TEMP 37.9
[2021-07-31 00:30] VITALS: BP 100/63; PULSE 84; RESP 20; O2SAT 98
[2021-07-31 03:32] VITALS: BP 125/70; PULSE 80; RESP 20; TEMP 36.1; O2SAT 94
[2021-07-31 07:19] LABS: Vancomycin, Trough 13.7 ug/mL (10.0-20.0)
[2021-07-31 07:54] VITALS: BP 110/65; PULSE 83; RESP 18; TEMP 37.1; O2SAT 95
[2021-07-31] MEDS: Lactulose 20 GM/30 ML CUP 30 GM PO (08:45)
[2021-07-31] MEDS: Tamsulosin 0.4 MG CAPCR 0.8 MG PO (08:45)
[2021-07-31] MEDS: Polyethylene Glycol 3350 17 GM PACKET PO (08:46)
[2021-07-31] MEDS: Aspirin E.C. 81 MG TABEC PO (08:46)
[2021-07-31] MEDS: Multivitamin TAB 1 TAB PO (08:46)
[2021-07-31] MEDS: Thiamine 100 MG TAB PO (08:47)
[2021-07-31] MEDS: Gabapentin 300 MG CAP PO (08:47)
[2021-07-31] MEDS: Spironolactone 50 MG TAB PO (08:47)
[2021-07-31] MEDS: Furosemide 40 MG/4 ML VIAL IVP ×2 (08:50→17:19)
[2021-07-31] MEDS: VANCOMYCIN/WATER (PEG) 1 GM/200 ML BAG IV ×2 (08:51→22:02)
[2021-07-31] MEDS: Normal Saline Flush 10 ML SYR IVP ×5 (08:51→22:01)
--- NOTE | 2021-07-31 09:33 | CMPROGNOTE_ITS ---
- If Service Date Differs Date of service: 07/31/21 Time of Service: 09:33 Care Management Progress Note S/O:Jackson was sitting up in a chair when CM met with him. He was calm, polite and appropriate in interaction with CM today. Jackson informed CM that he continues to have a lot of pain. He stated that even with medication, it is not completely controlled. CM received a call from Khushbu Redding, the woman from whom he rents a room. She expressed concern about her ability to continue to care for Jackson. She stated that she is nearly 72 years old and cannot lift him and provide the physical care he needs. She indicated that she would not be able to take him back unless he were independent with his self care and ambulation. She did state that she has shared that with Jackson as well and that he understands. A: Jackson is a 61 year old man admitted on 07/28/21 with Hyponatremia and cellulitis P:Jackson's discharge plan is unclear at this time. He has been renting a room from Khushbu Justa since he was released from correction on 06/27/21. Khushbu has informed CM that she will not be able to have him return until he is able to be independent with his ADLs and ambulation. Disposition will be determined by Jackson's progress and level of independence. CM will continue to support Jackson and his discharge needs.
--- NOTE | 2021-07-31 11:30 | IN_ITS ---
Date of service: 07/31/21 Time of Service: 11:30 PT Notes Visit Reasons: Hyponatremia Physical Therapy Inpatient Initial Evaluation Date: 08/05/2021 Referring Doctor: Danny Tran MD PT Orders: PT CONSULT: Eval/treat Precautions: Activity as tolerated. Contact precautions in place. Patient Profile/Admitting Diagnosis: Jackson is a 61-year-old male who presented to the ED on 07/28/2021 due to increasing pain in both legs over the past month and worsening bilateral lower extremity edema. Patient is diagnosed with opioid abuse, depression, hypertension, diabetes mellitus, alcoholic cirrhosis of liver, bilateral leg edema, hyperlipidemia, cellulitis, and polysubstance abuse. PMHX: All Active Problems?(Updated 07/28/21 @ 17:48 by Danny Tran MD) Cellulitis (Acute) UTI (urinary tract infection) (Acute) Ambulatory dysfunction (Acute) Discharge planning issues (Acute) Fall (Acute) Alcoholic cirrhosis of liver (Acute) Lactic acidosis (Acute) Dehydration (Acute) Alcohol withdrawal (Acute) TIA (transient ischemic attack) (Acute) Alcohol withdrawal syndrome (Acute 01/15/13) Continuous chronic alcoholism (Acute 01/15/13) Acute pancreatitis (Acute 01/15/13) Acquired thrombocytopenia (Acute 01/15/13) Medical History? Acute alcohol intoxication Alcohol dependence Anemia Arthritis Bilateral leg edema Chronic pain Cirrhosis of liver Diabetic peripheral neuropathy Encephalopathy, hepatic Hepatitis C Hyperlipidemia Knee pain, right TIA (transient ischemic attack) Ulnar neuropathy Urinary retention Surgical History? H/O cervical spine surgery Hx of total knee arthroplasty Social History/Home Situation: Rents a room in a friend's home with 4 steps to enter and bilateral rails. Modified independent using front wheel walker. Recently released from longterm after having been incarcerated for 14 months. Equipment Owned/DME: [employer] Subjective: Agreeable to PT consult. Complains of pain in bilateral lower extremities that limited today's ambulation. States that he was in [employer] for 3 years. Objective: General Observation: Supine in bed. Bilateral legs in wound dressing. Student Nurse Jacqueline present during mobility assessment. Mental Status: Alert and is able to follow instructions Pain: 5/10 in BLE with movement and weight bearing ROM: Right Upper Extremity: Shoulder Flexion WFL. Shoulder abduction WFL. Elbow flexion WFL. Wrist flexion WFL. Functional opening and closing of hand WFL. Left Upper Extremity: Shoulder Flexion WFL. Shoulder abduction WFL. Elbow flexion WFL. Wrist flexion WFL. Functional opening and closing of hand WFL. Right Lower Extremity: Hip flexion WFL. Hip abduction WFL. Knee flexion allows to 90 degrees Ankle dorsiflexion allows -20 degrees. Ankle plantarflexion WFL. Left Lower Extremity: Hip flexion WFL. Hip abduction WFL. Knee flexion allows to 90 degrees Ankle dorsiflexion allows -20 degrees. Ankle plantarflexion WFL. Strength: Right Upper Extremity: Shoulder flexors 4-/5. Shoulder abductors 4-/5. Elbow flexors 4-/5. Elbow extensors 4-/5. Swimming Teacher functional. Left Upper Extremity: Shoulder flexors 4-/5. Shoulder abductors 4-/5. Elbow flexors 4-/5. Elbow extensors 4-/5. Swimming Teacher functional. Right Lower Extremity: Hip flexors 4-/5. Hip abductors 4-/5. Knee flexors 3-/5. Knee extensors 3-/5. Ankle dorsiflexors 3-/5. Ankle plantarflexors 4-/5. Left Lower Extremity: Hip flexors 4-/5. Hip abductors 4-/5. Knee flexors 3-/5. Knee extensors 3-/5. Ankle dorsiflexors 3-/5. Ankle plantarflexors 4-/5. Sensation: Diminished as to pain and pressure on bilateral lower extremities due to chroninc peripheral neuropathies Bed Mobility/Transfers: Supine to sit minimal assist with HOB at 45 degrees Sit to stand minimal assist Stand to sit minimal assist Bed to chair minimal assist Chair to bed minimal assist Gait: 15 feet using frontwheeled walker with full weight bearing with minimal assist of 2 for safety with patient demonstrating unsteady shaky legs with decreased step height and decrease step length.? Impulsive and unsafe.? Reports increased fatigue and generalized body pain after activity. Pushes back against PT's hand stating that he feels unstable. Balance: Static Sitting: Good Dynamic Sitting: Good Static Standing: Fair Dynamic Standing: Fair Special Tests: Mobility Limitations Standardized Measure [facility] 6 clicks Basic Mobility Inpatient Short Form: Raw Score: 18? CMS Score: 47% deficit? ? ? Informed Consent/Education:? Patient was instructed in purpose of PT consult and plan of care. Assessment: Jackson demonstrates significant functional mobility decline requiring extensive physical assistance and use of front wheeled walker for all mobility ADL performance, B leg ulcers, decreased sensation in bilateral lower extremities, unsteadiness of gait, difficulty with walking, and generalized weakness resulting from admitting diagnoses. Jackosn is a 61-year-old male who presented to the ED on 07/28/2021 due to increasing pain in both legs over the past month and worsening bilateral lower extremity edema. Patient is diagnosed with opioid abuse, depression, hypertension, diabetes mellitus, alcoholic cirrhosis of liver, bilateral leg edema, hyperlipidemia, cellulitis, and polysubstance abuse. Patient presents with clinical signs and symptoms consistent with cu rrent/admitting diagnoses that have resulted to mobility limitations, gait instability, generalized weakness, and impairment of motor control as demonstrated by the following impairment level findings: 1.? Decreased strength to B UE/LE major muscle groups 2.? Impaired standing balance 3.? Impaired activity tolerance 4.? Limitation of joint range of motion in B UE/LE 5.? Diminished sensation to bilateral lower extremities (chroniic) Impairments are contributing to the following functional limitations: 1.? Dependent bed mobility skills 2.? Increased dependence with transfers 3.? Inability to safely ambulate without assistive device and physical assistance 4.? Increase completion time for mobility ADL performance 5.? Increased fall risk 6.? Inability to negotiate steps alone safely Patient is assessed as a 21802 moderate complexity based on the following: History: 59-year-old male with impairment level findings, functional limitations, and past medical history as indicated above Examination: Demonstrable impairment in strength, balance, and mobility level with underlying impairments and functional limitations as documented above Presentation:Evolving Decision Makin moderate complexity Goals: Goals X1 week 1. Supine-Sit independent 2. Sit-Supine independent 3. Sit-Stand contact-guard assist 4. Stand-Sit contact-guard assist 5. Bed-Chair contact-guard assist 6. Chair-Bed contact-guard assist 7. Contact-guard assist gait on level surface with use of least restrictive device for at least 300 feet without report of pain nor dyspnea 8. Good static and dynamic standing balance/tolerance Plan of Care/Treatment Plan: 1-2x/day, 7 days/week x 1 week. Plan of care has been reviewed with the [employer] providing the service under Physical Therapy direction. Initiate Physical Therapy intervention for strengthening, bed mobility, transfers, gait, stairs, balance training, use of assistive device. DISCHARGE RECOMMENDATIONS: [] Home with no services [] [X] Home with services. Home when medically cleared by hospitalist. Patient will benefit from home health PT services in order to progress mobility level using least restrictive assistive ambulatory device, assess home safety, identify additional equipment needs, and establish a functional maintenance program that will increase ability of patient to remain at home. [] Home with outpatient PT [] [] SNF for continued rehabilitation [] [] Care Home Care [] [] SNF versus LTC based on ability to participate and progress [] TREATMENT CODE/TIME: 39584 x 28 minutes beginning at 11:30 AM. Thank you for the opportunity to participate in the care of this patient. Adela Meraz PT, DPT, CLT [facility] [place], [place]
[2021-07-31] MEDS: HYDROmorphone 2 MG/ML SYR 1 MG IVP (11:48)
--- NOTE | 2021-07-31 13:02 | W.PM.PROGNOT ---
Date of Service Date of service: 07/31/21 Time of Service: 13:03 Assessment and Plan Assessment and plan (1) Opioid abuse: Status: None Assessment and plan: Polysubstance abuse. Currently with adequate pain control with narcotics, gabapentin, Cymbalta (2) Depression: Status: None Assessment and plan: Increased Cymbalta to 60mg daily to help with BLE pain;burning type pain. (3) Hypertension: Status: None Assessment and plan: Not currently on any antihypertensive medications. Monitor. (4) Diabetes mellitus, type II: Status: None Assessment and plan: Not on medications. Random blood draw glucose normal. AC/HS glucose monitoring OK Stopped fingerstick glucose monitoring. (5) Alcoholic cirrhosis of liver: Status: Acute Assessment and plan: He has not been taking lactulose. No encephalopathy noted. Will restart at 30 gr daily. Previously prescribed 45 gr TID and stopped because of intolerance to the loose stools. AST and ALT normal. Bilirubin normal. (6) Bilateral leg edema: Assessment and plan: Chronic venous stasis with significant skin changes, edema, extensive maceration. NOw s/p debridement in OR. Lasix 40mg IV BID; for hyponatremia. Prescribed oral lasix at home but he endorses not routinely taking his medications. (7) Hyperlipidemia: Assessment and plan: Cont Atovastatin. Lipid profile in AM (8) Cellulitis: Status: Acute Assessment and plan: Chronic venous stasis with chronic skin discoloration / erythema, maceration and breakdown of calf areas. Vancomycin initiated in ED; continue with pharmacy dosing. MRSA nasal swab +. CRP trending down. WBC count normal. No fever. S/P debridement by surgery in the OR. (9) Polysubstance abuse: Status: Acute Assessment and plan: Admits to using cocaine and alcohol. On CIWA monitoring with benzodiazapine protocol. (10) UTI (urinary tract infection): Status: Acute Assessment and plan: Urine cx growing 2 species of enterococcus. On Vanc. Asymptomatic. Subjective Subjective Patient reports: no new complaints, still having pain (BLE's below the knees. Low back. ) and fever (38.2 last PM. Afebrile since.); denies shortness of breath Exam Narrative Exam Narrative: Lying in bed. Interactive. States he is in pain; both legs. Const General: cooperative Nutritional Appearance: obese Orientation: alert and oriented x3 Eyes General: appearance normal, both eyes and all related structures Sclera: sclerae normal Resp Effort & Inspection: normal respiratory effort Auscultation: clear to auscultation bilaterally Cardio Rate: regular rate Rhythm: regular rhythm Heart Sounds: S1 normal and S2 normal GI Palpation: soft and nontender Auscultation: normal bowel sounds Skin Full body images: 1. Bandages in place. Neuro General: no focal motor deficits Cranial Nerves: facial strength normal Speech: speech normal Psych Speech and Movement: speech clear Mood: irritable mood Affect: blunted Objective Last Vital Signs Temp 37.1 C 07/31/21 07:54 Pulse 83 07/31/21 07:54 Resp 18 07/31/21 07:54 BP 110/65 07/31/21 07:54 Pulse Ox 95 07/31/21 07:54 Laboratory Results - last 24 hr 07/31/21 06:52 Vancomycin Trough 13.7
[2021-07-31] MEDS: HYDROmorphone 4 MG TAB PO (13:58)
[2021-07-31] MEDS: Gabapentin 600 MG TAB PO ×2 (13:59→21:42)
[2021-07-31 15:23] VITALS: BP 102/64; PULSE 91; RESP 14; TEMP 36.4; O2SAT 94
[2021-07-31] MEDS: traZODone 50 MG TAB PO (22:01)
[2021-07-31] MEDS: Atorvastatin 40 MG TAB PO (22:01)
[2021-07-31 23:05] VITALS: BP 105/71; PULSE 96; RESP 16; TEMP 37.7; O2SAT 93
[2021-08-01 06:19] LABS: MCH 24.8 pg (27.0-33.0); MCHC 30.8 % (32.0-36.0); MCV 80.7 fL (80-95); MPV 9.6 fL (8.0-11.0); Platelet Count 160 10^3/uL (130-400); RBC 4.83 10^6/uL (4.36-5.78); RDW 16.8 % (11.8-14.1); RDW-SD 49.2 fL; WBC 8.23 10^3/uL (4.4-10.8)
[2021-08-01 07:27] VITALS: BP 109/71; PULSE 91; RESP 20; TEMP 36.8; O2SAT 97
[2021-08-01] MEDS: Furosemide 40 MG/4 ML VIAL IVP ×2 (09:02→18:47)
[2021-08-01] MEDS: Normal Saline Flush 10 ML SYR IVP (09:02)
[2021-08-01] MEDS: Aspirin E.C. 81 MG TABEC PO (09:03)
[2021-08-01] MEDS: Spironolactone 50 MG TAB PO (09:03)
[2021-08-01] MEDS: Multivitamin TAB 1 TAB PO (09:03)
[2021-08-01] MEDS: Gabapentin 600 MG TAB PO ×3 (09:03→20:31)
[2021-08-01] MEDS: Lactulose 20 GM/30 ML CUP 30 GM PO (09:03)
[2021-08-01] MEDS: Tamsulosin 0.4 MG CAPCR 0.8 MG PO (09:03)
[2021-08-01] MEDS: DULoxetine 30 MG CAP 60 MG PO (09:03)
[2021-08-01] MEDS: Thiamine 100 MG TAB PO (09:03)
[2021-08-01] MEDS: Polyethylene Glycol 3350 17 GM PACKET PO (09:03)
--- NOTE | 2021-08-01 09:54 | PDOC.CMPRO ---
- If Service Date Differs Date of service: 08/01/21 Time of Service: 09:54 Care Management Progress Note S/O: Jackson was sitting up in his recliner eating lunch when CM met with him. Jackson is MRSA+ and on precautions. A conversation was held with Jackson, Khushbu (via phone) and CM. Khushbu told Jackson that he needs to be able to ambulate to bathroom and be able to get out of his recliner independently in order for her to consider taking him back. Jackson is agreeable to short term rehab, to improve his mobility. Jackson shares that he went to the [facility] for PT before his neck surgery and liked it there. He would also like a referral sent to [facility]. In addition, Khushbu shared that Jackson was supposed to see Urology on Wednesday for urinary retention, however he missed that appointment because he was here. CM notified Dr. Tran. Per provider, Jackson currently has an indwelling catheter and is on tamsulosin and may benefit from a follow up outpatient urology appointment. A: Jackson is a 61 year old man admitted on 07/28/21 with Hyponatremia and cellulitis P: Anticipate Jackson will discharge to SNF for short term rehab to improve mobility prior to returning back to Khushbu's residence. SNF referral's are pending at [facility] and [facility]. Khushbu has informed CM that she will not be able to have him return until he is able to be independent with his ADLs and ambulation. Disposition will be determined by Jackson's progress and level of independence. CM will continue to support Jackson and his discharge needs.
[2021-08-01 10:10] LABS: Anion Gap 6.5 mmol/L (3-11); BUN 27 mg/dL (7-18); CO2 29.5 mmol/L (21.0-32.0); CREATININE 0.9 mg/dL (0.70-1.30); Calcium 8.5 mg/dL (8.5-10.1); Chloride 95 mmol/L (98-107); Glucose 106 mg/dL (74-106); Potassium 3.9 mmol/L (3.5-5.1); Sodium 131 mmol/L (136-145)
[2021-08-01] MEDS: Doxycycline Hyclate 100 MG CAP PO ×2 (11:48→20:32)
--- NOTE | 2021-08-01 13:41 | PGE_ITS ---
Date of Service Date of service: 08/01/21 Time of Service: 13:42 Assessment and Plan Assessment and plan (1) Opioid abuse: Status: None Assessment and plan: Polysubstance abuse. Currently with adequate pain control with narcotics, gabapentin, Cymbalta (2) Depression: Status: None Assessment and plan: Increased Cymbalta to 60mg daily to help with BLE pain;burning type pain. (3) Hypertension: Status: None Assessment and plan: Not currently on any antihypertensive medications. Monitor. (4) Diabetes mellitus, type II: Status: None Assessment and plan: Not on medications. Random blood draw glucose normal. AC/HS glucose monitoring OK Stopped fingerstick glucose monitoring. (5) Alcoholic cirrhosis of liver: Status: Acute Assessment and plan: He has not been taking lactulose. No encephalopathy noted. Will restart at 30 gr daily. Previously prescribed 45 gr TID and stopped because of intolerance to the loose stools. No encephalopathy noted. AST and ALT normal. Bilirubin normal. (6) Bilateral leg edema: Assessment and plan: Chronic venous stasis with significant skin changes, edema, extensive maceration. Now s/p debridement in OR. Lasix 40mg IV BID; for hyponatremia; will change to 40 po daily in AM. He has diuresed well. Prescribed oral lasix at home but he endorses not routinely taking his medications. (7) Hyperlipidemia: Assessment and plan: Cont Atovastatin. Lipid profile in AM (8) Cellulitis: Status: Acute Assessment and plan: Chronic venous stasis with chronic skin discoloration / erythema, maceration and breakdown of calf areas. Vancomycin initiated in ED; continue with pharmacy dosing. MRSA nasal swab +. CRP trending down. WBC count normal. No fever. S/P debridement by surgery in the OR. (9) Polysubstance abuse: Status: Acute Assessment and plan: Admits to using cocaine and alcohol. On CIWA monitoring with benzodiazapine protocol; has not scored so will d/c. (10) UTI (urinary tract infection): Status: Acute Assessment and plan: Urine cx growing 2 species of enterococcus sensitive to vancomycin. On Vanc. for cellulitis (presumed). Asymptomatic but has received 4 days of VAncomycin that should be adequate c overage. Vancomycin stopped for his cellulitis and doxycycline initiated. (11) Discharge planning issues: Status: Acute Assessment and plan: Mr Daniels has been renting a room from the Grandmother of his good friend. She has been concerned that he has been requiring more assistance than she is either willing or able to give d/t the debility he has been experiencing d/t his BLE edema/pain. He is now improving and ambulating. She is will to allow him to return to her home when he is able to care for himself. He has now agreed to SNF for rehab. Referrals sent out to local facilities. Subjective Subjective Patient reports: no new complaints, pain is less, tolerating a regular diet and afebrile; denies shortness of breath Interval history since last seen: Ambulating more / working with PT. Less leg pain with ambulation. Exam Narrative Exam Narrative: Lying in bed. Interactive. States he is in pain; both legs. Const General: cooperative Nutritional Appearance: obese Orientation: alert and oriented x3 Eyes General: appearance normal, both eyes and all related structures Sclera: sclerae normal Resp Effort & Inspection: normal respiratory effort Auscultation: clear to auscultation bilaterally Cardio Rate: regular rate Rhythm: regular rhythm Heart Sounds: S1 normal and S2 normal GI Palpation: soft and nontender Auscultation: normal bowel sounds Neuro General: no focal motor deficits Cranial Nerves: facial strength normal Speech: speech normal Extrem Upper/lower leg/hip images: 1. Dressing with FAUSTINO wrap coverings are in place Psych Speech and Movement: speech clear Mood: irritable mood Affect: blunted Objective Last Vital Signs Temp 36.8 C 08/01/21 07:27 Pulse 91 H 08/01/21 07:27 Resp 20 08/01/21 07:27 BP 109/71 08/01/21 07:27 Pulse Ox 97 08/01/21 07:27 Laboratory Results - last 24 hr 08/01/21 08/01/21 06:08 06:08 WBC 8.23 RBC 4.83 Hgb 12.0 L Hct 39.0 L MCV 80.7 MCH 24.8 L MCHC 30.8 L RDW 16.8 H Plt Count 160 MPV 9.6 Sodium 131 L Potassium 3.9 Chloride 95 L Carbon Dioxide 29.5 Anion Gap 6.5 BUN 27 H D Creatinine 0.9 Estimated GFR/1.73 m2 >= 60.00 Glucose 106 D Calcium 8.5
--- NOTE | 2021-08-01 15:51 | PT.INTREAT ---
Date of service: 08/01/21 Time of Service: 08:36 PT Notes Visit Reasons: Hyponatremia Inpatient Physical Therapy Treatment Note [facility] Date: 08/01/2021 PRECAUTIONS: Activity as tolerated, Fall, Contact for MRSA SUBJECTIVE: Jackson is pleasant and agreeable to participating in PT. He states that he feels that he is close to his baseline level of function. He feels that he ambulates a little slower than usual though, but he attributes that to not having moved much recently. OBJECTIVE: PAIN: Patient c/o back pain and B LE pain with gait training BED MOBILITY/TRANSFERS: Sit-stand: SBA Stand-sit: SBA GAIT: Assistive Device: FWW Weight bearing: Full Assist: CGA-SBA Distance: 80' in a.m.; 100' in p.m. Deviation: Slow samantha, anteroflexed posture; decreased pain in p.m. THEREX: Patient was instructed in several LE strengthening exercises, completed in a seated position, as per flow sheet. Aqua-K pad applied to low back for relief of pain and discomfort. ASSESSMENT: Patient tolerated session with complaint of LBP and B LE pain, however decreasing in p.m. with gait training. He was able to tolerate a progression in gait distance with FWW support and CGA-SBA, although demonstrates slow samantha. PLAN: Continue with global strengthening and general conditioning for improved mobility and activity tolerance. TREATMENT CODE/TIME: Session 1: 26 minutes; 45441 x2 (08:36) Session 2: 20 minutes; [id number] (12:42)
--- NOTE | 2021-08-01 18:33 | W.PM.PROGNOT ---
Date of Service Date of service: 08/01/21 Time of Service: 18:34 Assessment and Plan Assessment and plan (1) Polysubstance abuse: Status: Acute (2) Cellulitis: Status: Acute Assessment and plan: doxycycline MRSA screen blood cultures are negative (3) Opioid abuse: Status: None (4) Depression: Status: None (5) GERD (gastroesophageal reflux disease): Status: None (6) Hypertension: Status: None (7) Diabetes mellitus, type II: Status: None (8) Fall: Status: Acute (9) Hepatitis C: (10) Diabetic peripheral neuropathy: (11) Bilateral leg edema: (12) Alcohol dependence: (13) Arthritis: (14) Anemia: (15) Chronic venous stasis: Status: Acute (16) Chronic venous stasis dermatitis of both lower extremities: Status: Acute (17) Chronic cutaneous venous stasis ulcer: Status: Acute Assessment and plan: b/l UNNA boots would benefit from continued PT and nutritional support- protein and Vit C and zinc medical management to optimize C-V risks pt wounds did grow out MRSA. They are improving on doxy check for colinization derssing changed to w/ silver aquacel. Will place unna boots tomorrow cont PT Will need JERAMY's once wounds healed chronic management of lymphadema (18) Pressure ulcers of skin of multiple topographic sites: Status: Acute (19) Chronic pain: (20) Chronic anemia: Status: Acute Subjective Subjective Interval history since last seen: pt has difficulty w/ ambulation. Exam Extrem General: abnormal gait, clubbing, edema, muscle atrophy and other Right upper extremity: edema Other: ? LEFT RIGHT Width ??15?cm 16cm Length?10 cm 9cm -at widest measurements Depth??.5? ?cm .2cm ?depth: subQ Wound Base: ?granular: 80% ? Slough: 20% ?Surrounding Tissue: no Pain: high Signs of infection: improving Abx: doxcycline MRSA+ Wound location: b/l posterior calves Vascular status:? signs of severe chronic venous stasis and lymphedema Protein status:? 2.8 Pressure offloading: no Smoker:? yes Diabetes: no Objective Last Vital Signs Temp 36.8 C 08/01/21 07:27 Pulse 91 H 08/01/21 07:27 Resp 20 08/01/21 07:27 BP 109/71 08/01/21 07:27 Pulse Ox 97 08/01/21 07:27 Laboratory Results - last 24 hr 08/01/21 08/01/21 06:08 06:08 WBC 8.23 RBC 4.83 Hgb 12.0 L Hct 39.0 L MCV 80.7 MCH 24.8 L MCHC 30.8 L RDW 16.8 H Plt Count 160 MPV 9.6 Sodium 131 L Potassium 3.9 Chloride 95 L Carbon Dioxide 29.5 Anion Gap 6.5 BUN 27 H D Creatinine 0.9 Estimated GFR/1.73 m2 >= 60.00 Glucose 106 D Calcium 8.5
[2021-08-01 19:34] LABS: Lab Add On Test DONE
[2021-08-01 19:54] LABS: Iron 39 ug/dL (65-175); Total Iron Binding Capacity 309 ug/dL (250-450); Transferrin Sat 13 % (20-55)
[2021-08-01 20:07] LABS: Ferritin 60 ng/mL (26-388)
[2021-08-01 20:27] LABS: C-Reactive Protein 5.72 mg/dL (0.0-0.3)
[2021-08-01] MEDS: traZODone 50 MG TAB PO (20:31)
[2021-08-01] MEDS: Atorvastatin 40 MG TAB PO (20:32)
[2021-08-01] MEDS: HYDROmorphone 4 MG TAB PO (21:47)
[2021-08-01] MEDS: LORazepam 0.5 MG TAB PO (21:47)
[2021-08-01 23:07] VITALS: BP 126/86; PULSE 97; RESP 20; TEMP 36.8; O2SAT 97
[2021-08-02 07:27] VITALS: BP 109/68; PULSE 81; RESP 22; TEMP 37; O2SAT 93
[2021-08-02] MEDS: Lactulose 20 GM/30 ML CUP 30 GM PO (08:21)
[2021-08-02] MEDS: Spironolactone 50 MG TAB PO (08:22)
[2021-08-02] MEDS: Doxycycline Hyclate 100 MG CAP PO ×2 (08:23→21:23)
[2021-08-02] MEDS: HYDROmorphone 4 MG TAB PO ×2 (08:23→13:58)
[2021-08-02] MEDS: Aspirin E.C. 81 MG TABEC PO (08:23)
[2021-08-02] MEDS: Thiamine 100 MG TAB PO (08:23)
[2021-08-02] MEDS: Tamsulosin 0.4 MG CAPCR 0.8 MG PO (08:24)
[2021-08-02] MEDS: Furosemide 40 MG TAB PO (08:24)
[2021-08-02] MEDS: DULoxetine 30 MG CAP 60 MG PO (08:24)
[2021-08-02] MEDS: Gabapentin 600 MG TAB PO ×2 (08:24→13:29)
[2021-08-02] MEDS: Multivitamin TAB 1 TAB PO (08:38)
--- NOTE | 2021-08-02 08:52 | PT.INNT ---
Date of service: 08/02/21 Time of Service: 08:52 PT Notes Visit Reasons: Hyponatremia 08/02/2021 Patient is friendly, although states that he will be unable to participate in PT this morning due to bleeding and weeping B LE. Discussed with primary nurse, and she is in agreement that patient should not participate until B LE dressings/drainage are addressed. Will attempt to resume PT services Wednesday.
[2021-08-02] MEDS: Normal Saline Flush 10 ML SYR IVP (13:30)
--- NOTE | 2021-08-02 13:43 | W.PM.PROGNOT ---
Date of Service Date of service: 08/02/21 Time of Service: 13:43 Assessment and Plan Assessment and plan (1) Chronic cutaneous venous stasis ulcer: Status: Acute Assessment and plan: -Daily and PRN dressing changes with alginate, ABD, kerlix and FAUSTINO. Patient did not tolerate Unna boots. -Wound cultures growing MRSA, GBS, klebsiella and pasturella species -Nutritional supplements to promote wound healing -Medical optimization -Would obtain full bilateral arterial and venous studies to evaluate for vascular compromise impeding wound healing. Venous US on right very limited and not complete due to patient cooperation with exam. -Lymphadema management, leg elevation and exercises/PT (2) Polysubstance abuse: Status: Acute (3) Cellulitis: Status: Acute Assessment and plan: doxycycline MRSA screen blood cultures are negative (4) Opioid abuse: Status: None (5) Depression: Status: None (6) GERD (gastroesophageal reflux disease): Status: None (7) Hypertension: Status: None (8) Diabetes mellitus, type II: Status: None (9) Fall: Status: Acute (10) Hepatitis C: (11) Diabetic peripheral neuropathy: (12) Bilateral leg edema: (13) Alcohol dependence: (14) Arthritis: (15) Anemia: (16) Chronic venous stasis: Status: Acute (17) Chronic venous stasis dermatitis of both lower extremities: Status: Acute (18) Pressure ulcers of skin of multiple topographic sites: Status: Acute (19) Chronic pain: (20) Chronic anemia: Status: Acute Subjective Subjective Patient reports: no new complaints and afebrile Interval history since last seen: Patient did not tolerate Unna boots due to significant drainage causing maceration Exam Const General: cooperative, comfortable and no acute distress Resp Effort & Inspection: normal respiratory effort, able to speak in complete sentences, no audible wheezes and no respiratory distress Skin Wounds: wounds noted (bilateral lower extremities, covered/wrapped w/ alginate, ABD, kerlix, FAUSTINO) Neuro General: patient alert, patient awake and patient oriented x3 Objective Last Vital Signs Temp 98.6 F 08/02/21 07:27 Pulse 81 08/02/21 07:27 Resp 22 08/02/21 07:27 BP 109/68 08/02/21 07:27 Pulse Ox 93 08/02/21 07:27 Laboratory Results - last 24 hr 04/08/01/21 08/01/21 06:08 06:08 06:08 Iron 39 L TIBC 309 Transferrin % Sat 13 L Ferritin 60 C-Reactive Protein 5.72 H Add-On Test Request DONE
[2021-08-02 15:08] VITALS: BP 102/64; PULSE 94; RESP 18; TEMP 37.5; O2SAT 92
[2021-08-02] MEDS: LORazepam 0.5 MG TAB PO (15:29)
[2021-08-02] MEDS: Acetaminophen 325 MG TAB PO (15:29)
--- NOTE | 2021-08-02 17:29 | W.PM.PROGNOT ---
Date of Service Date of service: 08/02/21 Time of Service: 17:29 Assessment and Plan Assessment and plan (1) Cellulitis: Status: Acute Assessment and plan: Chronic venous stasis with chronic skin discoloration / erythema, maceration and breakdown of calf areas. Vancomycin initiated in ED; continue with pharmacy dosing. MRSA nasal swab +. CRP trending down. WBC count normal. No fever. S/P debridement by surgery in the OR. (2) Opioid abuse: Status: None Assessment and plan: Polysubstance abuse. cont. Cymbalta 60 mg daily; however will incr. gabapentin to 800 mg tid; continue oral and prn iv dilaudis (3) Depression: Status: None Assessment and plan: Increased Cymbalta to 60mg daily to help with BLE pain;burning type pain. (4) Hypertension: Status: None Assessment and plan: Not currently on any antihypertensive medications. Monitor. Not currently an issue. (5) Diabetes mellitus, type II: Status: None Assessment and plan: Not on medications. Random blood draw glucose normal. AC/HS glucose monitoring OK Stopped fingerstick glucose monitoring. However I will check a glycohemoglobin A1c to assess long-term glucose control. (6) Alcoholic cirrhosis of liver: Status: Acute Assessment and plan: He has not been taking lactulose. No encephalopathy noted. Will restart at 30 gr daily. Previously prescribed 45 gr TID and stopped because of intolerance to the loose stools. No encephalopathy noted. AST and ALT normal. Bilirubin normal. (7) Bilateral leg edema: Assessment and plan: Chronic venous stasis with significant skin changes, edema, extensive maceration. Now s/p debridement in OR. Now currently on Lasix 40 mg once a day. He has diuresed well. Currently wt down to 80 kg (down 8.5 kg since admission). I do not see any echo this admisson to evaluate RV fxn. The presumption is his stasis was secondary to chronic liver disease. I will get echo on Wednesday to evaluate LV and RV fxn (8) Hyperlipidemia: Assessment and plan: Cont Atovastatin. Lipid profile in AM (9) Polysubstance abuse: Status: Acute Assessment and plan: Admits to using cocaine and alcohol. He drinks a fifth of whiskey per day and has no intention of stopping. He did not go through withdrawal symptoms and CIWA scoring was stopped because he was not scoring (10) UTI (urinary tract infection): Status: Acute Assessment and plan: urine c&s from 07/29 grew two species of Enterococcus faecalis however he was initially treated with vancomycin x5 days. I will repeat his urinalysis to make sure he is clear the UTI. If he still has Enterococcus in his urine that he will need further imaging studies of his kidneys and bladder and a urology consultation. (11) Discharge planning issues: Status: Acute Assessment and plan: Mr Daniels has been renting a room from the Grandmother of his good friend. She has been concerned that he has been requiring more assistance than she is either willing or able to give d/t the debility he has been experiencing d/t his BLE edema/pain. He is now improving and ambulating. She is will to allow him to return to her home when he is able to care for himself. He has now agreed to SNF for rehab. Referrals sent out to local facilities. Subjective Subjective Interval history since last seen: Patient complains that nothing touches his pain; however, he seems to be in no acute distress watching TV when I walked into the room. Patient has hx of longer term opioid use for chronic back pain. Exam Narrative Exam Narrative: Middle age male who appears older than his stated age of 61 He is alert/oriented, watching TV. He just finished talking w/ Dr. Bowling Lungs: clear heart: RRR Abdomen: soft, nontender Legs: both are wrapped up in FAUSTINO wraps (he did not tolerate wearing of the Unna boots), feet are warm, dry w/ intact/strong pedal pulses; I did not unwrap his bandages today but will look at his wounds tomorrow when his dressing is changed Objective Last Vital Signs Temp 37.5 C 08/02/21 15:08 Pulse 94 H 08/02/21 15:08 Resp 18 08/02/21 15:08 BP 102/64 08/02/21 15:08 Pulse Ox 92 08/02/21 15:08 Laboratory Results - last 24 hr 08/01/21 08/01/21 08/01/21 06:08 06:08 06:08 Iron 39 L TIBC 309 Transferrin % Sat 13 L Ferritin 60 C-Reactive Protein 5.72 H Add-On Test Request DONE
[2021-08-02] MEDS: traZODone 50 MG TAB PO (21:23)
[2021-08-02] MEDS: Atorvastatin 40 MG TAB PO (21:23)
[2021-08-02] MEDS: Gabapentin 800 MG TAB PO (21:23)
[2021-08-02 21:38] LABS: Bilirubin Negative (Negative); Blood Large (Negative); Clarity Clear (Clear); Glucose Negative (Negative); Ketones Negative (Negative); Leukocyte Esterase Small (Negative); Nitrite Negative (Negative); Specific Gravity 1.015 (1.005-1.025)
[2021-08-02 21:51] LABS: Epithelial Cells Rare HPF (Negative)
[2021-08-02 21:52] LABS: Bacteria Negative HPF (Negative); C & S Indicated? Yes; Casts Negative LPF (Negative); Crystals Negative HPF (Negative); Mucus Negative (Negative); Other Cells Rare Renal (Negative)
[2021-08-02 23:15] VITALS: BP 106/60; PULSE 80; RESP 16; TEMP 37.1; O2SAT 94
[2021-08-03 06:56] LABS: Anion Gap 4.4 mmol/L (3-11); BUN 23 mg/dL (7-18); CO2 31.6 mmol/L (21.0-32.0); CREATININE 0.8 mg/dL (0.70-1.30); Calcium 8.4 mg/dL (8.5-10.1); Chloride 99 mmol/L (98-107); Glucose 155 mg/dL (74-106); Potassium 3.9 mmol/L (3.5-5.1); Sodium 135 mmol/L (136-145)
[2021-08-03 07:12] VITALS: BP 103/71; PULSE 74; RESP 20; TEMP 37.1; O2SAT 94
[2021-08-03] MEDS: Normal Saline Flush 10 ML SYR IVP ×4 (08:00→21:57)
[2021-08-03] MEDS: Polyethylene Glycol 3350 17 GM PACKET PO (08:01)
[2021-08-03] MEDS: Lactulose 20 GM/30 ML CUP 30 GM PO (08:03)
[2021-08-03] MEDS: Tamsulosin 0.4 MG CAPCR 0.8 MG PO (08:03)
[2021-08-03] MEDS: Gabapentin 800 MG TAB PO ×3 (08:04→20:27)
[2021-08-03] MEDS: DULoxetine 30 MG CAP 60 MG PO (08:04)
[2021-08-03] MEDS: Multivitamin TAB 1 TAB PO (08:04)
[2021-08-03] MEDS: Aspirin E.C. 81 MG TABEC PO (08:04)
[2021-08-03] MEDS: Thiamine 100 MG TAB PO (08:04)
[2021-08-03] MEDS: Doxycycline Hyclate 100 MG CAP PO (08:04)
[2021-08-03] MEDS: Furosemide 40 MG TAB PO (08:05)
[2021-08-03] MEDS: Acetaminophen 325 MG TAB PO ×2 (08:05→22:46)
[2021-08-03] MEDS: Spironolactone 50 MG TAB PO (08:05)
[2021-08-03 08:11] LABS: Hemoglobin A1C 6.4 % (<5.7)
--- NOTE | 2021-08-03 11:35 | PGE_ITS ---
Date of Service Date of service: 08/03/21 Time of Service: 11:30 Assessment and Plan Assessment and plan (1) Chronic cutaneous venous stasis ulcer: Status: Acute Assessment and plan: -Daily and PRN dressing changes with alginate, ABD, kerlix and FAUSTINO. Patient did not tolerate Unna boots. -Wound cultures growing MRSA, GBS, klebsiella and pasturella species -Nutritional supplements to promote wound healing -Medical optimization -Would obtain full bilateral arterial and venous studies to evaluate for vascular compromise impeding wound healing. Venous US on right very limited and not complete due to patient cooperation with exam. -Lymphadema management, leg elevation and exercises/PT (2) Polysubstance abuse: Status: Acute (3) Cellulitis: Status: Acute Assessment and plan: doxycycline MRSA screen blood cultures are negative (4) Opioid abuse: Status: None (5) Depression: Status: None (6) GERD (gastroesophageal reflux disease): Status: None (7) Hypertension: Status: None (8) Diabetes mellitus, type II: Status: None (9) Fall: Status: Acute (10) Hepatitis C: (11) Diabetic peripheral neuropathy: (12) Bilateral leg edema: (13) Alcohol dependence: (14) Arthritis: (15) Anemia: (16) Chronic venous stasis: Status: Acute (17) Chronic venous stasis dermatitis of both lower extremities: Status: Acute (18) Pressure ulcers of skin of multiple topographic sites: Status: Acute (19) Chronic pain: (20) Chronic anemia: Status: Acute Subjective Subjective Patient reports: no new complaints, tolerating a regular diet and afebrile Exam Const General: cooperative, comfortable and no acute distress Resp Effort & Inspection: normal respiratory effort, able to speak in complete sentences, no audible wheezes and no respiratory distress Skin Wounds: wounds noted (bilateral lower extremities, covered/wrapped w/ alginate, ABD, kerlix, FAUSTINO) Neuro General: patient alert, patient awake and patient oriented x3 Objective Last Vital Signs Temp 98.8 F 08/03/21 07:12 Pulse 74 08/03/21 07:12 Resp 20 08/03/21 07:12 BP 103/71 08/03/21 07:12 Pulse Ox 94 08/03/21 07:12 Laboratory Results - last 24 hr 08/02/21 08/03/21 08/03/21 21:00 06:05 06:05 Sodium 135 L Potassium 3.9 Chloride 99 Carbon Dioxide 31.6 Anion Gap 4.4 BUN 23 H Creatinine 0.8 Estimated GFR/1.73 m2 >= 60.00 Glucose 155 H Hemoglobin A1c 6.4 H Calcium 8.4 L Urine Color Yellow Urine Clarity Clear Urine pH 6.0 Ur Specific [place] 1.015 Urine Protein Negative Urine Ketones Negative Urine Blood Large H Urine Nitrite Negative Urine Bilirubin Negative Urine Urobilinogen 1.0 H Ur Leukocyte Esterase Small H Urine RBC 10-20 H Urine WBC 3-5 Ur Epithelial Cells Rare Urine Crystals Negative Urine Bacteria Negative Urine Casts Negative Urine Mucus Negative Urine Other Rare Renal Ur Culture Indicated? Yes Urine Glucose Negative
[2021-08-03] MEDS: HYDROmorphone 2 MG/ML SYR 1 MG IVP ×2 (12:29→21:56)
--- NOTE | 2021-08-03 12:42 | PGE_ITS ---
Date of Service Date of service: 08/03/21 Time of Service: 12:43 Assessment and Plan Assessment and plan (1) Cellulitis: Status: Acute Assessment and plan: Chronic venous stasis with chronic skin discoloration / erythema, maceration and breakdown of calf areas. Patient has been on doxycycline orally but his wound cultures are polymicrobial including GpB Strep, MRSA, and Pasturella multocida, E. coli and Bacteroides fragilis I have modified his antibiotic coverage to include TMP/SMX and metronidazole; however, I will consult w/ I.D. about him. He will need close monitoring while on this regimen as he has alcoholic liver disease. Wound care to include Adaptic over the skin wounds, then Aquacell AG, ABD and kerlex and FAUSTINO wrap. Lachydrin over unopened skin, i.e. feet and dry legs (2) Opioid abuse: Status: None Assessment and plan: Polysubstance abuse. cont. Cymbalta 60 mg daily; however will incr. gabapentin to 800 mg tid; continue oral and prn iv dilaudid (3) Depression: Status: None Assessment and plan: Increased Cymbalta to 60mg daily to help with BLE pain;burning type pain. (4) Hypertension: Status: None Assessment and plan: Not currently on any antihypertensive medications. Monitor. Not currently an issue. (5) Diabetes mellitus, type II: Status: None Assessment and plan: Not on medications. Random blood draw glucose normal. AC/HS glucose monitoring OK Stopped fingerstick glucose monitoring. However I will check a glycohemoglobin A1c to assess long-term glucose control. This was found to be elevated at 6.4% in the nearly diabetic range (i.e. 6.5% or over) (6) Alcoholic cirrhosis of liver: Status: Acute Assessment and plan: He has not been taking lactulose. No encephalopathy noted. Will restart at 30 gr daily. Previously prescribed 45 gr TID and stopped because of intolerance to the loose stools. No encephalopathy noted. AST and ALT normal. Bilirubin normal. (7) Bilateral leg edema: Assessment and plan: Chronic venous stasis with significant skin changes, edema, extensive maceration. Now s/p debridement in OR. Now currently on Lasix 40 mg once a day. He has diuresed well. Currently wt down to 80 kg (down 8.5 kg since admission). I do not see any echo this admisson to evaluate RV fxn. The presumption is his stasis was secondary to chronic liver disease. I will get echo on Wednesday to evaluate LV and RV fxn (8) Hyperlipidemia: Assessment and plan: Cont Atovastatin. Lipid profile in AM (9) Polysubstance abuse: Status: Acute Assessment and plan: Admits to using cocaine and alcohol. He drinks a fifth of whiskey per day and joshua s no intention of stopping. He did not go through withdrawal symptoms and CIWA scoring was stopped because he was not scoring (10) UTI (urinary tract infection): Status: Acute Assessment and plan: urine c&s from 07/29 grew two species of Enterococcus faecalis however he was initially treated with vancomycin x5 days. I will repeat his urinalysis to make sure he is clear the UTI. If he still has Enterococcus in his urine that he will need further imaging studies of his kidneys and bladder and a urology consultation. he has alejandro in place d/t difficulty voiding. Once his leg wounds are healing well enough for him to be more ambulatory then we can give him a voiding trial. For today he is in too much discomfort from the dressing changes. (11) Discharge planning issues: Status: Acute Assessment and plan: Mr Daniels has been renting a room from the Grandmother of his good friend. She has been concerned that he has been requiring more assistance than she is either willing or able to give d/t the debility he has been experiencing d/t his BLE edema/pain. He is now improving and ambulating. She is will to allow him to return to her home when he is able to care for himself. He has now agreed to SNF for rehab. Referrals sent out to local facilities. Subjective Subjective Interval history since last seen: Patient w/ increased pain over his wounds particularly during dressing changes (despite medication w/ narcotics prior to dressing changes). Exam Narrative Exam Narrative: Leg wounds examined during his dressing changes. Alginate removed by nursing from wound but required saline wash to remove. Both legs w/ extensive skin ulcerations over the posterior-lateral calfs w/ sanguinous drainage; marked improvement in his leg edema. Pedal pulses intact Objective Last Vital Signs Temp 37.1 C 08/03/21 07:12 Pulse 74 08/03/21 07:12 Resp 20 08/03/21 07:12 BP 103/71 08/03/21 07:12 Pulse Ox 94 08/03/21 07:12 Laboratory Results - last 24 hr 08/02/21 08/03/21 08/03/21 21:00 06:05 06:05 Sodium 135 L Potassium 3.9 Chloride 99 Carbon Dioxide 31.6 Anion Gap 4.4 BUN 23 H Creatinine 0.8 Estimated GFR/1.73 m2 >= 60.00 Glucose 155 H Hemoglobin A1c 6.4 H Calcium 8.4 L Urine Color Yellow Urine Clarity Clear Urine pH 6.0 Ur Specific [place] 1.015 Urine Protein Negative Urine Ketones Negative Urine Blood Large H Urine Nitrite Negative Urine Bilirubin Negative Urine Urobilinogen 1.0 H Ur Leukocyte Esterase Small H Urine RBC 10-20 H Urine WBC 3-5 Ur Epithelial Cells Rare Urine Crystals Negative Urine Bacteria Negative Urine Casts Negative Urine Mucus Negative Urine Other Rare Renal Ur Culture Indicated? Yes Urine Glucose Negative
--- NOTE | 2021-08-03 12:59 | WOUNDCONS ---
- If Service Date Differs Date of service: 08/03/21 Time of Service: 12:59 Wound Initial Evaluation Narrative: Pt admitted with bilateral calf wounds that started approximately three months ago while he was incarcerated in a small skilled nursing cell. States that during his incarceration, he noted his lowered extremity swelling and then they began weeping. He states that he was responsible to treat his legs on his own and would tear up old bandar-shirts to wrap around his legs to collect the fluid. Upon admission he was found to have an elevated DDimer of 3591. An Ultrasound was attempted but due to discomfort was not able to be completed. No further studies noted on the lower extremities. JERAMY's were held also due to discomfort and due to the condition of the open wounds of the bilateral calfs. The left leg was 4+ edema and almost twice the size of the right on arrival. The left leg was red and warm with yellow slough on the back of the calf. The right had a large area of eschar covering the calf. Please see pre-operative photos. Both legs had large amounts of purulent foul odor that filled the room. I had attempted to do a wound consult on 07/29/21, however, due to discomfort despite premedication, pt was unable to tolerate the consult and a surgical consult was obtained instead. Pt was taken to the OR on 07/30/21 and both calf were debrided under anesthesia. On Wednesday the primary nurse took down the Unna boots as the bandages were wet on the posterior of his legs. On the left calf there was a small amount of maceration noted to the intact skin. On the right there was 10% slough. Due to the amount of drainage from the wounds, we went back to the aquacell dressings and planned to discussed with the Dr. Bowling on rounds. On Wednesday, I discussed with Dr. Bowling who agreed with my assessment and recommendations as well as Dr. Mcmillan. Review of history include: Hyperlipidemia, Hepititis C cirrhosis, hypertension, TIA, Opiod and ETOH abuse, arthritis, DM, and Neuropathy, and daily smoker. Wound cultures show MRSA, strep, e coli, and pasturella. WBC has been within normal range since admission. Lactate on admit 1.7 now 0.9 bun 63 23 cre 1.8 0.8 crp 17.33 5.72 albumin 2.8 HgbA1c 6.4 cholesterol panel within normal range - Wound Right Calf Wound Type: Statis Ulcer, Partial Thickness Wound General Appearance: Draining, Bleeding, Unapproximated Wound Bed Greatest Portion: Red (Granulation), Shiny, Other (dark red bloody area in the center of the wound at the area where previous eschar was ) Wound Surrounding Tissue Appearance: Dark Red, Purple Percent of Wound Bed Granulated/Red: 100 Percent of Wound Bed Slough/Yellow: 0 Percent of Wound Bed Eschar/Black: 0 Wound Length: 15.5 in Wound Width: 13.5 in Wound Depth: 0.4 in Wound Drainage Amount: Moderate Wound Drainage Odor: Other (mild) Wound Drainage Description: Bloody Wound Topical Solution/Irrigant: Saline Irrigant, Other (anasept) Wound Debridement Method: Gauze (pat dry after cleansed) Wound Debridement Result: Healthy Tissue Revealed Wound Debridement Amount of Tissue Removed: None Left Calf Wound Type: Statis Ulcer, Partial Thickness Wound General Appearance: Draining, Bleeding, Unapproximated Wound Bed Greatest Portion: Red (Granulation), Shiny Wound Surrounding Tissue Appearance: Dark Red, Purple Percent of Wound Bed Granulated/Red: 100 Percent of Wound Bed Slough/Yellow: 0 Percent of Wound Bed Eschar/Black: 0 Wound Length: 15.5 in Wound Width: 15.5 in Wound Depth: 0.4 in Wound Drainage Amount: Moderate Wound Drainage Odor: Other (mild) Wound Drainage Description: Bloody Wound Topical Solution/Irrigant: Saline Irrigant, Other (anasept) Wound Debridement Method: Gauze (pat dry after cleanse) Wound Debridement Result: Healthy Tissue Revealed Wound Debridement Amount of Tissue Removed: None - Circulation, Sensation, Motion Edema Degree: Trace Peripheral Pulse Strength: Weak Capillary Refill: Greater than 3 seconds Sensation Description: Within Normal Limits Skin Temperature: Warm - JERAMY Comment:: deferred at this time due to discomfort of open wounds - Pain Pain Level: 8 Pain Scale Used: Adult Pain Description: Burning, Achy Pain Duration/Frequency: Constant Additional Other Comments: pt had been premedicated with morphine and again with dilaudid during dressing change Wounds have much less odor than prior to surgery, no exudate noted, no slough, or eschar noted. Healthier tissue noted. On the following photos, the first 3 photos are of the left calf, the later 3 photos are of the right calf. - Photo Photo: - Treatment/Dressing Change Cleanse With: Anasept, Other Dressing Types: ABD Pad, Adaptic (Contact Layer), Aquacell (Specialty Absorptive), Aquacell Ag, Elastic Bandage, Kerlix (Gauze Roll) Dressing Comment: May use the conforming stretch gauze bandage in bacon of the kerlix followed by an melissa wrap for compression. Additional Other Comments: Moisten dressing with saline or sterile water to ease in removal. - Recomendation Recomendation:: 1.Remove old dressing from legs. May use either Sterile NS or Sterile Water to moisten dressing for easier removal if adhered to wound to prevent mechanical debridement and pain. 2. Cleanse wound with Anasept wound cleanser. 3. Pat dry. 4. Apply a contact layer to wound bed such as Adaptic to help prevent adherence of dressing to the wound bed. 5. Apply Aquacell sheet dressing on top of the Adaptic. May use Aquacell AG once available. 6. Apply ABD pad. 7. Wrap with Conforming Stretch gauze bandage starting at the toes. 8. Wrap with melissa wrap starting at the toes with a 50% overlap. Encourage pt to lie on side with pillow between knees and ankles and behind back while in bed. While up in chair, sit with feet on a foot stool and pillow to avoid pressure from the leg rest of a recliner. Ambulate frequently to promote circulation. Zinc for wound healing. Dietary to assess protein intake. Respiratory to discuss smoking cessation. Physcian/Nurse Practioner Notified: Yes Referrals: Dietary Treatment Time - Time Total Time Spent with Patient: 2 hours - Patient Will be Seen Weekly Treatment: daily - For: For:: 2 weeks
[2021-08-03] MEDS: metroNIDAZOLE 500 MG TAB PO ×2 (14:12→20:27)
[2021-08-03 15:06] VITALS: BP 105/64; PULSE 85; RESP 20; TEMP 36.3; O2SAT 96
[2021-08-03] MEDS: Atorvastatin 40 MG TAB PO (20:27)
[2021-08-03] MEDS: Sulfameth/Trimeth DS TAB 1 TAB PO (20:27)
[2021-08-03] MEDS: traZODone 50 MG TAB PO (21:53)
[2021-08-03 22:46] VITALS: BP 134/86; PULSE 95; RESP 18; TEMP 37.2; O2SAT 94
[2021-08-04] MEDS: HYDROmorphone 2 MG/ML SYR 1 MG IVP ×3 (06:29→22:55)
[2021-08-04] MEDS: Normal Saline Flush 10 ML SYR IVP ×3 (06:30→22:55)
--- NOTE | 2021-08-04 06:36 | NUR.NOTE ---
Nursing Note: Pt removed the Juan wrap to his right leg dressing. RN tried to replaced JUAN wrap but patient refuses for the Juan wrap to be put back on. Pt states He took off the wrap and it s comfortable right now. Pt educated on importance of Juan wrap but pt continues to refuse for the wrap to be replaced. Charge nurse aware
[2021-08-04 07:56] VITALS: BP 108/65; PULSE 76; RESP 19; TEMP 36.3; O2SAT 95
[2021-08-04] MEDS: Polyethylene Glycol 3350 17 GM PACKET PO (08:07)
[2021-08-04] MEDS: Tamsulosin 0.4 MG CAPCR 0.8 MG PO (08:08)
[2021-08-04] MEDS: HYDROmorphone 4 MG TAB PO ×2 (08:08→15:46)
[2021-08-04] MEDS: Aspirin E.C. 81 MG TABEC PO (08:08)
[2021-08-04] MEDS: DULoxetine 30 MG CAP 60 MG PO (08:08)
[2021-08-04] MEDS: Spironolactone 50 MG TAB PO (08:09)
[2021-08-04] MEDS: Thiamine 100 MG TAB PO (08:09)
[2021-08-04] MEDS: Multivitamin TAB 1 TAB PO (08:09)
[2021-08-04] MEDS: Gabapentin 800 MG TAB PO ×3 (08:09→21:19)
[2021-08-04] MEDS: metroNIDAZOLE 500 MG TAB PO ×2 (08:09→13:33)
[2021-08-04] MEDS: Furosemide 40 MG TAB PO (08:09)
[2021-08-04] MEDS: Sulfameth/Trimeth DS TAB 1 TAB PO ×2 (08:19→21:19)
--- NOTE | 2021-08-04 09:21 | DI.US_ITS ---
APPROVED REPORT EXAM: Comprehensive 2D, Doppler, and color-flow Echocardiogram Patient Location: In-Patient Room/Bed: [facility] [place] [facility] [place] Inspector Outside Production: Katya Liu RDCS (AE) Indications: Bilateral leg edema, Evaluate RV and LV Funciton Other Information Study Quality: Adequate. Technically limited study due to body habitus, inability to position patient . Conclusion Normal left ventricular chamber size and wall thickness. Estimated ejection fraction is 55%. Wall m otion is normal The right ventricle appears grossly normal in size and systolic function Both atria are normal in size There is no structural or hemodynamically significant valvular disease Estimated right ventricular systolic pressure is 30 mmHg Wall motion Left Ventricle The left ventricle is normal size. The left ventricular systolic function is normal. The left ventric ular ejection fraction is within the normal range. There is normal left ventricular wall thickness. T here is normal LV segmental wall motion. There is no ventricular septal defect visualized. LVEF is 55 %. Right Ventricle Right ventricle is grossly normal in size. Right ventricular systolic function is grossly normal. The RVSP is 30.2mmHg. Atria The left atrium size is normal. The right atrium size is normal. The interatrial septum is intact wit h no evidence for an atrial septal defect. Aortic Valve Aortic valve is trileaflet. There is no aortic valvular stenosis. No aortic regurgitation is present. Mitral Valve The mitral valve is normal in structure. No evidence of mitral valve stenosis. Trace mitral regurgita tion. Tricuspid Valve The tricuspid valve is normal in structure. There is no tricuspid valve stenosis. Trace to mild tricu spid regurgitation. Pulmonic Valve The pulmonary valve is normal in structure. There is no pulmonic valvular stenosis. Trace pulmonic re gurgitation. Great Vessels The aortic root is normal in size. The ascending aorta is normal in size. IVC is normal in size and c ollapses >50% with inspiration. Pericardium There is no pericardial effusion. 2D Dimensions IVSD d PLAX 0.91 cm M: 0.6-1.2 LV Vol A2C d MOD 127.8 mL LVPW d PLAX 0.93 cm M: 0.6 - 1.2 LV Vol A4C d MOD 110.7 mL LVID d PLAX 4.55 cm M: 4.2 - 5.8 LA vol/ BSA A2C s A-L 20.4 mL/m2 LVDs 3.20 cm M: 2.5 - 4.0 LA vol/ BSA A4C s A-L 22.5 mL/m2 Ao Root d 3.41 cm M: 3.1 - 3.7 LA Vol/ BSA Biplane s A-L 24.2 mL/m2 RA Area A4C 11.69 cm2 LA Area A4C s MOD 15.87 cm2 RA Vol/ BSA A4C s A-L 14.2 mL/m2 LA Area A2C s MOD 13.37 cm2 Ao Asc Diam d 3.47 cm M: 2.6 - 3.4 LV EF A4C MOD 55.5 % LV EF Teichholz 55.4 % LV EF A2C MOD 55.2 % LVEF (Victor's) 57.03 % M: 52 - 72 LV EF Biplane MOD 57.0 % LV Volume 95.13 mL M: 62 - 150 SV 71.01 mL LV Volume Index 50.33 mL/m2 M: 34 - 74 SV Index 37.49 mL/m2 LV Vol Biplane MOD 124.5 mL FS 28.70 % M-Mode TAPSE 2.32 cm (M/F) >1.7 LV Diastology MV E' medial 0.088 (>0.07 m/s) E/A Ratio 0.9 LV E/e MED 7.80 (<14) MV E Vmax 0.69 (0.4-1.3 m/s) MV E' lateral 0.137 (>0.1 m/s) MV A Vmax 0.80 (0.4-1.3 m/s) LV E/e LAT 5.00 (<14) MV E/A Ratio 0.85 MV E/E' medial 7.81 MV E/E' lateral 5.02 Aortic Valve LVOT Area 3.47 cm2 AoV Area Vmax 2.52 cm2 LVOT Vmax 1.10 m/s AoV Area/ BSA (Vmax) 1.33 cm2/m2 LVOT Mean Soy. 0.76 m/s DELMER Mean Soy. 2.52 cm2 LVOT Peak Grad 4.9 mmHg DELMER Mean Soy. Index 1.33 cm2/m2 LVOT Mean Grad 2.6 mmHg LVOT VTI 0.204 m LVOT Diam s 2.10 cm AoV Vmax 1.52 m/s Velocity Ratio 0.72 AoV Mean Soy. 1.04 m/s AoV Peak Grad 9.2 mmHg LVOT SV 70.91 mL AoV Mean Grad 5.0 mmHg AoV VTI 0.270 m AoV Area VTI 2.63 cm2 AoV Area/ BSA (VTI) 1.39 cm/m2 Mitral Valve MV DT 225 (160-240 msec) MV PHT 65 msec MV Area PHT 3.37 cm2 MV VTI 0.228 m MV Area VTI 3.11 (4.0-6.0 cm2) Pulmonary Valve PV Vmax 1.07 (0.5-1.5 m/s) RVOT Peak Gr. 1.66 mmHg PV Peak Grad 4.5 mmHg RVOT Mean Gr. 0.80 mmHg PV Mean Grad 2.4 mmHg RVOT VTI 0.113 m PV VTI 0.213 m RVOT Vmax 0.64 m/s Tricuspid Valve TR Peak Grad 27.1 mmHg TR Vmax 2.61 m/s RA Pressure 3.00 mmHg RVSP (TR) 30.2 mmHg
--- NOTE | 2021-08-04 09:21 | W.PM.PROGNOT ---
Date of Service Date of service: 08/04/21 Time of Service: 09:21 Assessment and Plan Assessment and plan (1) Chronic cutaneous venous stasis ulcer: Status: Acute Assessment and plan: -Daily and PRN dressing changes with alginate, ABD, kerlix and FAUSTINO. Patient did not tolerate Unna boots. -Wound cultures growing MRSA, GBS, klebsiella and pasturella species. Bactrim & flagyl -Nutritional supplements to promote wound healing -Medical optimization -Would obtain full bilateral arterial and venous studies to evaluate for vascular compromise impeding wound healing. Venous US on right very limited and not complete due to patient cooperation with exam. -Lymphadema management, leg elevation and exercises/PT Education provided on the benefits and importance of the dressings on his LEs. Patient verbalized understanding. b/l calf irregular in shape mixed pressure and venous stasis good granulation tissue. Nothing that requires debridement measured yest. by WOC RN- 15x15 again these are irregular and patchy. -pt refused to wear UNNA boots -pt refusing to walk/do PT -continue nutritional support -pt states he cannot walk b/c of back issues/ OA. I d/w pt that OA & pain will get worse if he does not walk. dressing orders amended. wound is quite dry at this time. Add silvadene and stop aquacel. really does need compression -stable for d/c from sx standpoint. Will follow peripherally. (2) Polysubstance abuse: Status: Acute (3) Cellulitis: Status: Acute Assessment and plan: doxycycline MRSA screen blood cultures are negative (4) Opioid abuse: Status: None (5) Depression: Status: None (6) GERD (gastroesophageal reflux disease): Status: None (7) Hypertension: Status: None (8) Diabetes mellitus, type II: Status: None (9) Fall: Status: Acute (10) Hepatitis C: (11) Diabetic peripheral neuropathy: (12) Bilateral leg edema: (13) Alcohol dependence: (14) Arthritis: (15) Anemia: (16) Chronic venous stasis: Status: Acute (17) Chronic venous stasis dermatitis of both lower extremities: Status: Acute (18) Pressure ulcers of skin of multiple topographic sites: Status: Acute (19) Chronic pain: (20) Chronic anemia: Status: Acute (21) MRSA cellulitis: Status: Acute Subjective Subjective Interval history since last seen: Patient reports that his legs are uncomfortable. He is questioning if he needs the dressing on his legs. He denies any fevers or chills. Exam Const General: cooperative, healthy appearing and comfortable Orientation: alert and oriented x3 Resp Effort & Inspection: normal respiratory effort, no audible wheezes and no cough Objective Last Vital Signs Temp 36.3 C L 08/04/21 07:56 Pulse 76 08/04/21 07:56 Resp 19 08/04/21 07:56 BP 108/65 08/04/21 07:56 Pulse Ox 95 08/04/21 07:56
--- NOTE | 2021-08-04 09:41 | W.NUTCONSULT ---
Date of service: 08/04/21 Time of Service: 09:41 Nutritional Consult ASSESSMENT: Pressure wounds on bilateral calves noted. PMH: DM2, polysubstance abuse, alcoholic liver disease. Currently following low sodium diet with adequate intake. Blood sugars well controlled, most recent A1C 6.4%. Recommend continue more liberal diet as maximum po intake needed for optimal healing. NUTRITIONAL DIAGNOSIS: Increased nutrient needs for wound healing impaired nutrient utilization in view of liver disease INTERVENTION: Recommend starting him on 1 oz liquid protein TID, MVI, 220 mg zinc sulfate, 500 mg vitamin C BID to aid in wound healing. Continue thiamin, folate, MVI for repletion. MONITORING AND EVALUATION: Will continue to monitor po intake, labs, weight Time Spent in Nutritional Counseling and Treatment: 10
--- NOTE | 2021-08-04 10:15 | PT.INTREAT ---
Date of service: 08/04/21 Time of Service: 10:15 PT Notes Visit Reasons: Hyponatremia Inpatient Physical Therapy Treatment Note [facility] Date: 08/04/2021 PRECAUTIONS: Activity as tolerated. Contact precautions in place. SUBJECTIVE: Cooperative throughout session. Denies headache, chest pain, and dizziness throughout session. Expressed his plan of requesting a motorized wheelchair due to his chronic back issues and would like to speak with care management about this. OBJECTIVE:? PAIN: Denies ? BED MOBILITY/TRANSFERS: ? Supine to sit hand-held assist to B feet to decrease undue rubbing of leg wounds ? Sit-stand: Standby assist ? Stand-sit: Standby assist ? GAIT: ? Assistive Device: FWW? Weight bearing: Full Assist: Standby assist ? Distance: 175 feet? Deviation: Minimal cues provided to walk closer to walker. Did not feel patient pushing back or posterior balance compromised throughout activity. Madalyn improving.? THERA EX: Chair push-ups x20. Mini squats x20. ASSESSMENT:? Significant reduction in pain has allowed for improved mobility performance. Benefit from a level of care to maximize independence with supine to sit activity. DISCHARGE RECOMMENDATIONS: [] Home with no services [] [X] Home with services. Discharge to home when medically cleared by hospitalist. Patient will benefit from home health PT services in order to progress mobility level using least restrictive assistive ambulatory device, assess home safety, identify additional equipment needs, and establish a functional maintenance program that will increase ability of patient to remain at home. [] Home with outpatient PT [] [] SNF for continued rehabilitation [] [] [facility] [] [] SNF versus LTC based on ability to participate and progress [] TREATMENT CODE/TIME: 69967 x 20 minutes, 9711 0 x 13 minutes beginning at 10:15 AM.
--- NOTE | 2021-08-04 11:36 | PDOC.CMPRO ---
- If Service Date Differs Date of service: 08/04/21 Time of Service: 11:36 Care Management Progress Note S/O: Jackson was lying in bed when CM met with him. SNF referral to the [facility] in still pending, [facility] declined referral. Jackson is still aware that he needs to be independent and fully functional in order for Khushbu to consider his discharge back to her home. Jackson agrees to additional SNF referrals, CM will send referral's to all SNF options. A conversation was held with Jackson, Khushbu (via phone) and CM last Wednesday. Khushbu told Jackson that he needs to be able to ambulate to bathroom and be able to get out of his recliner independently in order for her to consider taking him back. Jackson is agreeable to short term rehab, to improve his mobility. Jackson shares that he went to the [facility] for PT before his neck surgery and liked it there. A: Jacksno is a 61 year old man admitted on 07/28/21 with Hyponatremia and cellulitis P: Anticipate Jackson will discharge to SNF for short term rehab to improve mobility prior to returning back to Khushbu's residence. SNF referral is pending at [facility]. [facility], declined. Khushbu has informed CM that she will not be able to have him return until he is able to be independent with his ADLs and ambulation. Disposition will be determined by Jackson's progress and level of independence. CM will continue to support Jackson and his discharge needs.
[2021-08-04] MEDS: Protein Nutritional Supplement 16 GM 1 OUNCE PACKET PO ×2 (11:42→15:48)
[2021-08-04] MEDS: LORazepam 0.5 MG TAB PO (11:42)
[2021-08-04 15:01] VITALS: BP 114/86; PULSE 61; RESP 17; TEMP 36.2; O2SAT 92
--- NOTE | 2021-08-04 16:43 | W.PM.PROGNOT ---
Date of Service Date of service: 08/04/21 Time of Service: 16:43 Assessment and Plan Assessment and plan (1) Cellulitis: Status: Acute Assessment and plan: Chronic venous stasis with chronic skin discoloration / erythema, maceration and breakdown of calf areas. Patient has been on doxycycline orally but his wound cultures are polymicrobial including GpB Strep, MRSA, and Pasturella multocida, E. coli and Bacteroides fragilis I have modified his antibiotic coverage to include TMP/SMX and metronidazole;I have changed his metronidazole for Augmentin. Wound care to include Adaptic over the skin wounds, then Aquacell AG, ABD and kerlex and FAUSTINO wrap. Lachydrin over unopened skin, i.e. feet and dry legs (2) Opioid abuse: Status: None Assessment and plan: Polysubstance abuse. cont. Cymbalta 60 mg daily; however will incr. gabapentin to 800 mg tid; continue oral and prn iv dilaudid; however d/t his high tolerance for opioids and his ongoing leg pain; I have started him on MSContin at 15 mg bid (I calculated his MME use of hydromorphone at 60 mg so starting at 15 mg bid should not be too much. (3) Depression: Status: None Assessment and plan: Increased Cymbalta to 60mg daily to help with BLE pain;burning type pain. (4) Hypertension: Status: None Assessment and plan: Not currently on any antihypertensive medications. Monitor. Not currently an issue. (5) Diabetes mellitus, type II: Status: None Assessment and plan: Not on medications. Random blood draw glucose normal. AC/HS glucose monitoring OK Stopped fingerstick glucose monitoring. However I will check a glycohemoglobin A1c to assess long-term glucose control. This was found to be elevated at 6.4% in the nearly diabetic range (i.e. 6.5% or over) I will restart monitoring of his glucose on a bid schedule given his elevated A1c and his wound infections (6) Alcoholic cirrhosis of liver: Status: Acute Assessment and plan: He has not been taking lactulose. No encephalopathy noted. Will restart at 30 gr daily. Previously prescribed 45 gr TID and stopped because of intolerance to the loose stools. No encephalopathy noted. AST and ALT normal. Bilirubin normal. (7) Bilateral leg edema: Assessment and plan: Chronic venous stasis with significant skin changes, edema, extensive maceration. Now s/p debridement in OR. Now currently on Lasix 40 mg once a day. He has diuresed well. Currently wt down to 80 kg (down 8.5 kg since admission). I do not see any echo this admisson to evaluate RV fxn. The presumption is his stasis was secondary to chronic liver disease. Echo was done and he has normal LV and RV function w/ no evidence for PHTN. (8) Hyperlipidemia: Assessment and plan: Cont Atovastatin. (9) Polysubstance abuse: Status: Acute Assessment and plan: Admits to using cocaine and alcohol. He drinks a fifth of whiskey per day and has no intention of stopping. He did not go through withdrawal symptoms and CIWA scoring was stopped because he was not scoring (10) UTI (urinary tract infection): Status: Acute Assessment and plan: urine c&s from 07/29 grew two species of Enterococcus faecalis however he was initially treated with vancomycin x5 days. I will repeat his urinalysis to make sure he is clear the UTI. If he still has Enterococcus in his urine that he will need further imaging studies of his kidneys and bladder and a urology consultation. he has alejandro in place d/t difficulty voiding. Once his leg wounds are healing well enough for him to be more ambulatory then we can give him a voiding trial. For today he is in too much discomfort from the dressing changes. Repeat urinalysis had a large amount of blood probably due to Alejandro trauma. He only had 3-5 white cells and no bacteria. I requested that his Alejandro be discontinued today. (11) Discharge planning issues: Status: Acute Assessment and plan: Mr Daniels has been renting a room from the Grandmother of his good friend. She has been concerned that he has been requiring more assistance than she is either willing or able to give d/t the debility he has been experiencing d/t his BLE edema/pain. He is now improving and ambulating. She is will to allow him to return to her home when he is able to care for himself. He has now agreed to SNF for rehab. Referrals sent out to local facilities. Subjective Subjective Interval history since last seen: Jackson continues to have significant bilateral leg pain. He is currently receiving Dilaudid 4 mg every 4 hours as needed for pain. It appears over the last 24 hours he has had 16 mg total. I put him on MS Contin 15 mg p.o. twice daily. His calculated MME would be 60 mg a day. I would rather start out on the lower end and see how well he does with this. I will leave the Dilaudid available as needed for breakthrough pain. He continues to receive antibiotics for his bilateral venous stasis ulcers which were infected with polymicrobial organisms including MRSA, group B strep, Pasteurella multocida, E. coli and Bacteroides. He is currently on Bactrim DS 1 p.o. twice daily and metronidazole 500 mg p.o. 3 times daily. However this will not adequately cover the group B strep therefore I am going to discontinue the metronidazole and put him on Augmentin along with the Bactrim DS. He is receiving wound care from wound care nurses. Exam Narrative Exam Narrative: Jackson is sitting up in bed watching TV. He is no acute distress but complains of bilateral leg pain and burning Legs are wrapped in FAUSTINO wrap and Kerlex gauze. I did not take down the dressings to examine today. Patient reports that the surgeon looked at them earlier when nursing did his dressing changes Leg edema has markedly improved. he has palpable pedal pulses Objective Last Vital Signs Temp 36.2 C L 08/04/21 15:01 Pulse 61 08/04/21 15:01 Resp 17 08/04/21 15:01 BP 114/86 08/04/21 15:01 Pulse Ox 92 08/04/21 15:01 Reviewed Pertinent PMH: Yes Objective Narrative Objective Narrative: Echo results from today: Conclusion Normal left ventricular chamber size and wall thickness.? Estimated ejection fraction is 55%.? Wall motion is normal The right ventricle appears grossly normal in size and systolic function Both atria are normal in size There is no structural or hemodynamically significant valvular disease Estimated right ventricular systolic pressure is 30 mmHg
[2021-08-04] MEDS: Lachydrin 12% LOTION 225 GM BTL TP (17:59)
--- NOTE | 2021-08-04 18:17 | NUR.NOTE ---
Nursing Note: Patient was seen using personal nicotine/vape inhaler in room, pT refused to give up device. pT was encouraged to not use this device in hospital. pT became agitated at this time. Charge nurse notified. Parisa Faulkner USED [employer] SALESPERSON
[2021-08-04] MEDS: Amoxicillin 875/Clav. 125 TAB PO (21:23)
[2021-08-04 22:58] VITALS: BP 126/77; PULSE 90; RESP 18; TEMP 36.7; O2SAT 93
[2021-08-05] MEDS: HYDROmorphone 4 MG TAB PO ×2 (03:22→14:23)
[2021-08-05 08:02] VITALS: BP 131/87; PULSE 95; RESP 19; TEMP 36; O2SAT 95
[2021-08-05] MEDS: Protein Nutritional Supplement 16 GM 1 OUNCE PACKET PO ×3 (09:12→17:04)
[2021-08-05] MEDS: Gabapentin 800 MG TAB PO (09:13)
[2021-08-05] MEDS: Amoxicillin 875/Clav. 125 TAB PO ×2 (09:13→20:59)
[2021-08-05] MEDS: Thiamine 100 MG TAB PO (09:13)
[2021-08-05] MEDS: DULoxetine 30 MG CAP 60 MG PO (09:13)
[2021-08-05] MEDS: Tamsulosin 0.4 MG CAPCR 0.8 MG PO (09:13)
[2021-08-05] MEDS: Polyethylene Glycol 3350 17 GM PACKET PO (09:13)
[2021-08-05] MEDS: Aspirin E.C. 81 MG TABEC PO (09:13)
[2021-08-05] MEDS: Sulfameth/Trimeth DS TAB 1 TAB PO ×2 (09:14→20:59)
[2021-08-05] MEDS: Furosemide 40 MG TAB PO (09:14)
[2021-08-05] MEDS: Spironolactone 50 MG TAB PO (09:14)
[2021-08-05] MEDS: Multivitamin TAB 1 TAB PO (09:14)
[2021-08-05] MEDS: Lachydrin 12% LOTION 225 GM BTL TP (09:32)
[2021-08-05] MEDS: Silver sulfaDIAZINE 1% 25 GM TUBE TP (09:34)
[2021-08-05] MEDS: HYDROmorphone 2 MG/ML SYR 1 MG IVP (12:44)
--- NOTE | 2021-08-05 12:59 | CMPROGNOTE_ITS ---
- If Service Date Differs Date of service: 08/05/21 Time of Service: 12:59 Care Management Progress Note S/O: Jackson will need to find alternate housing. Khushbu called CM to advise that Jackson can not return to her home in [place] when he is discharged even if he is fully independent. Referral's are still pending at all SNF's, [facility] declined. Per PT, he is progressing with his mobility and may be appropriate for discharge to the community with full [facility] services and outpatient follow up appointments. CM faxed a referral to [employer] and [place] [facility] to assist patient with housing. CM spoke with Pretty Fair from [employer] who is going to reach out to his community case management team as their was a Community team meeting back in April surrounding his housing issues and community supports and [facility] status. Jackson is also reaching out to [facility] and inquiring about emergency housing at a local hotel. [employer] Jackson's community plant care worker Stacey is going to help Jackson with a LTC application. Per provider, best to transition Jackson to SWB1 status tomorrow for 7 days of daily wound care. A: Jackson is a 61 year old man admitted on 07/28/21 with Hyponatremia and cellulitis P: Anticipate, Jackson will likely transition to SWB1 08/06/21 for daily wound care X 7 days. SNF referral's are pending at all local SNF's. So far, he has been declined at [facility]. CM has referrals out to [facility] and [facility] to help with housing as Jackson is unable to discharge back to Khushbu's residence. CM will continue to support Jackson and his discharge needs.
--- NOTE | 2021-08-05 13:29 | W.PM.PROGNOT ---
Date of Service Date of service: 08/05/21 Time of Service: 13:30 Assessment and Plan Assessment and plan (1) Cellulitis: Status: Acute Assessment and plan: Chronic venous stasis with chronic skin discoloration / erythema, maceration and breakdown of calf areas. Patient has been on doxycycline orally but his wound cultures are polymicrobial including GpB Strep, MRSA, and Pasturella multocida, E. coli and Bacteroides fragilis I have modified his antibiotic coverage to include TMP/SMX and metronidazole;I have changed his metronidazole for Augmentin. Wound care to include Adaptic over the skin wounds, then Aquacell AG, ABD and kerlex and FAUSTINO wrap. Lachydrin over unopened skin, i.e. feet and dry legs (2) Opioid abuse: Status: None Assessment and plan: Polysubstance abuse. cont. Cymbalta 60 mg daily; however will incr. gabapentin to 900 mg tid; continue oral and prn iv dilaudid; however d/t his high tolerance for opioids and his ongoing leg pain; I have started him on MSContin at 15 mg bid but will titrated to 30 mg bid (3) Depression: Status: None Assessment and plan: Increased Cymbalta to 60mg daily to help with BLE pain;burning type pain. (4) Hypertension: Status: None Assessment and plan: Not currently on any antihypertensive medications. Monitor. Not currently an issue. (5) Diabetes mellitus, type II: Status: None Assessment and plan: Not on medications. Random blood draw glucose normal. AC/HS glucose monitoring OK Stopped fingerstick glucose monitoring. However I will check a glycohemoglobin A1c to assess long-term glucose control. This was found to be elevated at 6.4% in the nearly diabetic range (i.e. 6.5% or over) I will restart monitoring of his glucose on a bid schedule given his elevated A1c and his wound infections (6) Alcoholic cirrhosis of liver: Status: Acute Assessment and plan: He has not been taking lactulose. No encephalopathy noted. Will restart at 30 gr daily. Previously prescribed 45 gr TID and stopped because of intolerance to the loose stools. No encephalopathy noted. AST and ALT normal. Bilirubin normal. (7) Bilateral leg edema: Assessment and plan: Chronic venous stasis with significant skin changes, edema, extensive maceration. Now s/p debridement in OR. Now currently on Lasix 40 mg once a day. He has diuresed well. Currently wt down to 80 kg (down 8.5 kg since admission). I do not see any echo this admisson to evaluate RV fxn. The presumption is his stasis was secondary to chronic liver disease. Echo was done and he has normal LV and RV function w/ no evidence for PHTN. (8) Hyperlipidemia: Assessment and plan: Cont Atovastatin. (9) Polysubstance abuse: Status: Acute Assessment and plan: Admits to using cocaine and alcohol. He drinks a fifth of whiskey per day and has no intention of stopping. He did not go through withdrawal symptoms and CIWA scoring was stopped because he was not scoring (10) UTI (urinary tract infection): Status: Acute Assessment and plan: urine c&s from 07/29 grew two species of Enterococcus faecalis however he was initially treated with vancomycin x5 days. I will repeat his urinalysis to make sure he is clear the UTI. If he still has Enterococcus in his urine that he will need further imaging studies of his kidneys and bladder and a urology consultation. he has alejandro in place d/t difficulty voiding. Once his leg wounds are healing well enough for him to be more ambulatory then we can give him a voiding trial. For today he is in too much discomfort from the dressing changes. Repeat urinalysis had a large amount of blood probably due to Alejandro trauma. He only had 3-5 white cells and no bacteria. Alejandro dc'ed yesterday (11) Discharge planning issues: Status: Acute Assessment and plan: Mr Daniels has been renting a room from the Grandmother of his good friend. She has been concerned that he has been requiring more assistance than she is either willing or able to give d/t the debility he has been experiencing d/t his BLE edema/pain. He is now improving and ambulating. She is will to allow him to return to her home when he is able to care for himself. He has now agreed to SNF for rehab. Referrals sent out to local facilities. Subjective Subjective Interval history since last seen: Patient complains of increased pain in his legs particularly during his dressing changes. I told him that I had started him on MS Contin yesterday but will titrate his medications including his gabapentin and his MS Contin. Exam Narrative Exam Narrative: I exmamined Mr. Daniels during his dressing change today. The wounds appear to be slightly improving. They are less weepy. Skin over the posterior calfs have beefy red granulation tissue. Sloughing has improved. Edema is markedly better. Pedal pulses are intact. Objective Last Vital Signs Temp 36 C L 08/05/21 08:02 Pulse 95 H 08/05/21 08:02 Resp 19 08/05/21 08:02 BP 131/87 08/05/21 08:02 Pulse Ox 95 08/05/21 08:02
[2021-08-05] MEDS: Gabapentin 300 MG CAP 900 MG PO ×2 (14:16→20:59)
--- NOTE | 2021-08-05 14:35 | PT.INTREAT ---
Date of service: 08/05/21 Time of Service: 08:37 PT Notes Visit Reasons: Hyponatremia Inpatient Physical Therapy Treatment Note [facility] Date: 08/05/2021 PRECAUTIONS: Contact, Activity as tolerated SUBJECTIVE: Jackson is pleasant and agreeable to participating in PT. He states that he is concerned that he will have no where to go once he is discharged from the hospital. OBJECTIVE: Concerns regarding housing relayed to care management PAIN: No c/o pain BED MOBILITY/TRANSFERS Sit-stand: S Stand-sit: S GAIT Assistive Device: FWW Weight bearing: Full Assist: SBA Distance: 300' in a.m.; 300' in p.m. ASSESSMENT: Patient tolerated session without complaint. He was able to tolerate a progression in gait distance with FWW support and SBA, demonstrating safe gait mechanics and pacing. PLAN: Continue with global strengthening and general conditioning for improved mobility and activity tolerance. TREATMENT CODE/TIME: Session 1: 19 minutes; [id number] (08:37) Session 2: 16 minutes; [id number] (14:18)
[2021-08-05 15:15] VITALS: BP 108/69; PULSE 93; RESP 21; TEMP 36; O2SAT 98
[2021-08-05] MEDS: traZODone 50 MG TAB PO (22:49)
[2021-08-05 23:00] VITALS: BP 108/65; PULSE 92; RESP 20; TEMP 36.6; O2SAT 93
--- NOTE | 2021-08-05 23:13 | W.PM.PROGNOT ---
Date of Service Date of service: 08/05/21 Time of Service: 13:30 Assessment and Plan Assessment and plan (1) MRSA cellulitis: Status: Acute (2) Chronic anemia: Status: Acute (3) Pressure ulcers of skin of multiple topographic sites: Status: Acute Assessment and plan: Patient's wounds were visualized today while he was undergoing dressing change. They are approximately 10 x 9 cm in size. They are very jagged and irregular. There is good granulation noted. There is less than 5% slough. Patient does not tolerate dressings well. They are painful for him. The wounds appear to be very dry. Encouraged nursing staff to use more Silvadene. And may be we can only go to every other day dressing changes for him. He could not tolerate Unna boot. He does not tolerate pressure well on the extremities. He does have venous stasis and pressure is the best thing for him. We are not going to be able to get ABIs for sometime because of the location of the ulcer. Continue doing Silvadene, Adaptic, ABDs, Kerlix and Juan wraps. Patient needs to be up and walking. He states that he cannot walk because of his arthritis and back problems. I discussed with him that walking would be extremely beneficial. Patient does not participate Continue nutritional support and smoking cessation Patient is currently on doxycycline and this does appear to be resolving the infection. B minutes spent with the patient today in follow-up. There have are having a difficult time with placement for him. (4) Chronic cutaneous venous stasis ulcer: Status: Acute (5) Chronic venous stasis dermatitis of both lower extremities: Status: Acute (6) Chronic venous stasis: Status: Acute (7) Polysubstance abuse: Status: Acute (8) Ambulatory dysfunction: Status: Acute (9) Opioid abuse: Status: None (10) Alcohol dependence: (11) Arthritis: (12) Hepatitis C: (13) Hyperlipidemia: (14) TIA (transient ischemic attack): Objective Last Vital Signs Temp 36.6 C 08/05/21 23:00 Pulse 92 H 08/05/21 23:00 Resp 20 08/05/21 23:00 BP 108/65 08/05/21 23:00 Pulse Ox 93 08/05/21 23:00
[2021-08-06] MEDS: Silver sulfaDIAZINE 1% 25 GM TUBE TP (08:40)
[2021-08-06] MEDS: Protein Nutritional Supplement 16 GM 1 OUNCE PACKET PO ×3 (08:41→17:47)
[2021-08-06] MEDS: Thiamine 100 MG TAB PO (08:41)
[2021-08-06] MEDS: Spironolactone 50 MG TAB PO (08:41)
[2021-08-06] MEDS: Polyethylene Glycol 3350 17 GM PACKET PO (08:41)
[2021-08-06] MEDS: Sulfameth/Trimeth DS TAB 1 TAB PO (08:41)
[2021-08-06] MEDS: DULoxetine 30 MG CAP 60 MG PO (08:41)
[2021-08-06] MEDS: Lachydrin 12% LOTION 225 GM BTL TP (08:41)
[2021-08-06] MEDS: Multivitamin TAB 1 TAB PO (08:42)
[2021-08-06] MEDS: Furosemide 40 MG TAB PO (08:42)
[2021-08-06] MEDS: Aspirin E.C. 81 MG TABEC PO (08:42)
[2021-08-06] MEDS: Gabapentin 300 MG CAP 900 MG PO ×2 (08:42→13:32)
[2021-08-06] MEDS: Tamsulosin 0.4 MG CAPCR 0.8 MG PO (08:42)
[2021-08-06] MEDS: Amoxicillin 875/Clav. 125 TAB PO (08:42)
--- NOTE | 2021-08-06 09:26 | CMPROGNOTE_ITS ---
- If Service Date Differs Date of service: 08/06/21 Time of Service: 09:27 Care Management Progress Note S/O: Jackson was lying in bed when CM met with him. He was alert, oriented and appropriate. Jackson requires wound care and PT to improve strength and mobility. Anticipate, Jackson will transition to SWB1 for continued wound care and PT. Jackson is aware that he needs alterative housing as he is unable to return to [facility] home following discharge. Jackson's community point of care technician Stacey completed a LTM application with Jackson via phone yesterday. The completed application was emailed to CM, signed by patient. CM then faxed application to [facility] this morning. Prior to patients admission there had been team meetings within the community surrounding housing for Jackson. On the day of Jackson's discharge, he should call 211 for emergency housing at which time a hotel room will be secured, if available. Jackson is aware that there will likely be no local hotel availability. A: Jackson is a 61 year old man admitted on 07/28/21 with Hyponatremia and cellulitis P: Anticipate, Jackson will likely transition to SWB1 08/06/21 for daily wound care X 7 days. SNF referral's are pending at all local SNF's. So far, he has been declined at [facility]. Jackson is working with [employer] to help with housing, as Jackson is unable to discharge back to [facility] residence. LTM application is pending. CM will continue to support Jackson and his discharge needs.
[2021-08-06 10:26] VITALS: BP 113/72; PULSE 80; RESP 19; TEMP 36.2; O2SAT 92
--- NOTE | 2021-08-06 12:28 | PT.INTREAT ---
Date of service: 08/06/21 Time of Service: 10:45 PT Notes Visit Reasons: Hyponatremia Inpatient Physical Therapy Treatment Note [facility] Date: 08/06/2021 PRECAUTIONS: Contact, Activity as tolerated SUBJECTIVE: Jackson is pleasant and agreeable to participating in PT. He reports that he is having continued back pain, which the Aqua-K does not seem to be controlling as well as previously. OBJECTIVE: PAIN: Patient c/o back pain with gait training BED MOBILITY/TRANSFERS Sit-stand: S Stand-sit: S GAIT Assistive Device: FWW 4WW Weight bearing: Full Assist: S with FWW SBA with 4WW Distance: 150' with FWW + 150' with 4WW in a.m.; 400' with 4WW in p.m. Deviation: Path deviation with 4WW; standing rest x2 due to back pain in p.m. STAIRS: Up/down 3x4 and 2x6 using B rails and a step-to pattern with supervision ASSESSMENT: Patient tolerated session with c/o increased LBP with gait training in p.m. He was able to tolerate a progression in gait distance with 4WW support and SBA, although demonstrates minimal path deviation PLAN: Continue with global strengthening and general conditioning for improved mobility and activity tolerance. TREATMENT CODE/TIME: Session 1: 25 minutes; 42722 x2 (10:45) Session 2: 18 minutes; 21337 (13:08)
[2021-08-06] MEDS: HYDROmorphone 4 MG TAB PO (13:31)
[2021-08-06] MEDS: Normal Saline Flush 10 ML SYR IVP (15:48)
[2021-08-06] MEDS: HYDROmorphone 2 MG/ML SYR IVP (15:49)
--- NOTE | 2021-08-06 16:36 | W.PM.DS.N ---
Date of service: 08/06/21 Time of Service: 16:36 DS: Diagnosis Discharge Diagnosis (1) Polymicrobial bacterial infection: Status: Acute (2) MRSA cellulitis: Status: Acute (3) Chronic cutaneous venous stasis ulcer: Status: Acute (4) Chronic venous stasis dermatitis of both lower extremities: Status: Acute (5) Polysubstance abuse: Status: Acute (6) Opioid abuse: Status: None (7) Alcohol dependence: (8) Chronic anemia: Status: Acute (9) Constipation: Status: Acute (10) Ambulatory dysfunction: Status: Acute (11) Arthritis: (12) Hepatitis C: (13) Hyperlipidemia: (14) Diabetes mellitus, type II: Status: Ruled-out (15) Hyponatremia: Status: Acute Discharge Plan Disposition Patient Disposition: [facility] SWING BED LEVEL 1 Condition: Improving Discharge Details Reason For Visit: Hyponatremia, infected venous s Admit Date/Time: 07/28/21 15:46 Admit Provider: Danny Tran Attending Provider: Danny Tran Primary Care Provider: Sushil Figueroa [facility] Course Hospital Course: Mr Austin is a 61 yr old male alcoholic w/ opoid abuse disorder who uses cocaine and drinks about 1/5 whiskey per day, who has HTN, HLD, alcoholic cirrhosis, GERD, HLD, and TIA who presented to the ED @ [facility] on 07/28 complaining of severe bilateral leg pain and weeping ulcers an difficulty walking d/t the pain. He was found to have weeping purulent ulcers on the posterior aspects of both calfs and his pain was so sevver that he refused venous US that was ordered by the ED physician. Lab work on admission revealed prerenal azotemia w/ BUN 63 and creatinine 1.8 (despite his admission that he had not been taking his lasix regularly) and hyponatremia 120. CBC did not reveal leukocytosis but stable microcytic anemia Hb 12.2 gm , MCV 77, RDW 16.8. Normal platelets 174,000. UA mod. bacteria, a few WBC and moderate RBC. Urine and blood cultures were sent and he was started on Vancomycin and admitted for further treatment of his venous stasis ulcers and control of his B/L leg edema and pain control. His oxycodone was changed to short acting dilaudid and Cymbalta was continued and his dose was increased from 30 mg to 60 mg daily. Gabapentin was added at 300 mg tid and gradually titrated up to 900 mg tid. When his pain could not be adequately controlled he was put on MSContin at 15 mg bid and titrated up to 30 mg bid after calculation of his daily MME based on how much dilaudid he was requiring and converting his dilaudid dose to MME. Surgical consultation was obtained w/ Dr. Stearns who performed debridement of his leg wounds on 07/30. Wound cultures came back positive for polymicrobial infection including MRSA, Gp B Strep, Klebsiella oxytoca, Pasturella multocida and Bacteroides fragilis. His urine culture came back positive for two species of Enterococcous both sensitive to ampicillin and Vancomycin. Blood cultures showed one aerobic culture from admission grew Staph epi and all other blood cultures were no growth. The one culture only grew after several days and was felt to be a contaminant. Nasal swab for MRSA screen was postive from admission but repeat on 08/01 was negative. Repeat urine culture on 08/02 was no growth. Antibiotic treatment initially included Vancomycin which was given 07/28 to 07/31 when he was changed to doxycycline 08/01 to 08/03 when he was changed to metronidazole and TMP/SMX until this was changed to Augmentin and TMP/SMX on 08/04 and this was continued through the remainder of his stay. Wound care was initially treated w/ debridement by Dr. Stearns and patient was put on Unna boots but he could not tolerate this d/t the pain. His wounds actually became worse with the Unna boots. Wound care nursing was consulted on 08/03. The wounds were noted to have significant sloughing. Wounds were cleansed w/ Anasept washes and a barrier dressing of Adaptic with outer layers of Aquacell Ag and Kerlex gauze and FAUSTINO wrap were applied. Daily dressing changes were performed form 08/[address] Kenny added Silvadene cream to the layers of skin care. His ambulatory dysfunction was addressed w/ physical therapy conults who worked w/ strengthening his legs and walked him using a FWW. Disposition planning was coordinated w/ rehabilitation case coordinator who looked into Jackson's housing. Apparently Jackson befriended an inmate while Jackson was in halfway and at the time of this admission he was paying to live w/ his friend's grandmother. However she had indicated that she does not want him back (for unspecified reasons that are unknown to this author). With respect to his alcoholism, he never went through acute alcohol withdrawal although he was initially monitored per CIWA scoring. He was put on supplemental vitamins, thiamine and received protein supplements and zinc to help his wound healing. He was restarted on lactulose 30 gm daily to prevent alcoholic encephalopathy and to help with his chronic constipation. As for his alleged DM, an glycohemoglobin A1c was checked and found to be abnormal at 6.4% indicating that while he technically does not have DM he is pre-diabetic. MBS per fingersticks were monitored but he did not require insulin. As the patient was deemed to need prolonged wound care either daily or every other day and due to the fact that he likely would be homeless upon discharge with poor follow up of his wound care, he was deemed appropriate to enter into swing bed status particularly since he no longer needed daily physician visits and no longer needed daily labs and now was on oral antibiotics. Home Meds and New Rx's Prescriptions: Continued aspirin [Aspir-81] 81 MG tablet,delayed release (DR/EC) 81 mg PO DAILY 0RF tamsulosin [Flomax] 0.4 mg capsule 0.8 mg PO DAILY 0RF spironolactone 50 mg tablet 50 mg PO DAILY 0RF duloxetine [Cymbalta] 30 mg capsule,delayed release(DR/EC) 60 mg PO DAILY 0RF trazodone 50 mg tablet 50 mg PO DAILY 0RF furosemide 20 mg tablet 40 mg PO BID 0RF epinephrine 0.3 MG/SYR auto-injector 0.3 mg IM DIRECTED PRN0RF Label Comments: has never used 05/01/16 07/09/16- Pt states he had 2 epi pens a long time ago but doesnt know where they are atorvastatin [Lipitor] 40 MG tablet 40 mg PO QPM 0RF lactulose [Constulose] 10 GM/15 ML solution 45 gm PO TID 0RF Label Comments: Pt states hes supposed to take 45gm TID, but has not been taking d/t diarrhea lidocaine [Lidoderm] 1 PATCH patch 1 patch Topical Q24H Qty: 4 0RF pantoprazole [Protonix] 20 mg Tablet,Delayed Release (Dr/Ec) 20 mg PO DAILY 0RF polyethylene glycol 3350 [Miralax] 17 gram/dose powder 17 g PO DAILY PRN PRN0RF Label Comments: Take 17 gram by mouth as directed as needed magnesium oxide 400 MG tablet 400 mg PO BID 0RF multivitamin 1 EACH capsule 1 ea PO DAILY 0RF thiamine mononitrate (vit B1) [Vitamin B-1 (mononitrate)] 100 MG tablet 100 mg PO DAILY 0RF Discharge Instructions Instructions: Chronic Wound Care (DC), Stasis Dermatitis (DC), Venous Insufficiency (DC) Referrals: RADIOLOGY,[facility] [OTHER] - 08/08/21 10:15 am (Outpatient MRI ) Activity:: Activity as Tolerated Equipment/Supplies:: Walker Diet:: Carb Counting Discharge Orders Discharge Orders: Discharge Order (Routine); Ordered 08/06/21 Ordered By: Flex Mcmillan Discharge Data Discharge Date/Time-TO BE ENTERED AT DEPARTURE: 08/06/21 19:32 Discharge Comment: swingbed DS: Summary Time Spent with Patient providing and/or coordinating discharge services: Less than 30 minutes Specific discharge activities: reviewing studies; reconciliation of meds; examining patient; discussion of management w/ CM Status at Discharge Functional status at discharge: uses cane/walker Overall status at discharge: patient is progressing back to baseline Mental Status: mental status grossly normal Speech and Movement: speech and movement normal Mood: congruent mood Affect: normal affect Exam Narrative Exam Narrative: I exmamined Mr. Austin during his dressing change on 08/05.. The wounds appear to be slightly improving. They are less weepy. Skin over the posterior calfs have beefy red granulation tissue. Sloughing has improved. Edema is markedly better. Pedal pulses are intact. My visit with Mr. Austin on 08/06 did not include wound exam as his dressing had already been changed. However, I found him to be alert, conversant, still complaining of his leg pains although he appeared rather comfortable watching TV. His pain seems to be worse during his dressing changes. I discussed this with his nurses and they assured me that they are pre-medicating him before dressing changes Lungs: clear Heart: RRR Abdomen: soft, nontender, nondistended; patient finally had a BM today. Legs; no edema; pedal pulses intact;no erythema over feet nor proximally above his dressings Neuro: No focal motor deficits; sensory intact to light touch Psych Mental Status: mental status grossly normal Speech and Movement: speech and movement normal Mood: congruent mood Affect: normal affect DS: Data Vitals/I&O Vitals and I&O: Vital Signs Temperature 36.2 C L 08/06/21 10:26 Temperature Source Tympanic 08/06/21 10:26 Pulse 80 08/06/21 10:26 Pulse Rhythm Regular 08/06/21 11:22 Pulse 98 H 07/28/21 14:40 Respiratory Rate 19 08/06/21 10:26 Respiratory Effort Non-Labored 08/06/21 11:22 Respiratory Depth Normal 08/06/21 11:22 Respiratory Pattern Normal 08/06/21 11:22 Blood Pressure 113/72 08/06/21 10:26 Blood Pressure Position Supine 07/28/21 13:53 Pulse Oximetry 92 08/06/21 10:26 Oxygen Delivery Method Room Air 08/06/21 10:26 Oxygen Flow Rate 0 08/06/21 10:26 Pain Level 10 08/06/21 15:49 Comment 08/02/21 23:15 Intake & Output 08/05/21 08/06/21 08/06/21 23:59 11:59 23:59 Output Total 1450 / 3450 1750 / 1750 Balance -1450 / -2910 -1750 / -1750 Weight 85 kg Output: Urine 1450 / 3450 1750 / 1750 Other: Urine Color Yellow Yellow Urine Appearance Clear Clear Urine Odor Normal None Voiding Methods Urinal Urinal Data Completed and Pending Labs on day of discharge: Preliminary micro results at discharge 07/30/21 15:20 Wound Culture - Preliminary Leg - Left Lower Staph aureus, MRSA Streptococcus Agalactiae(Gp B) Klebsiella oxytoca Pasteurella Multocida 07/30/21 15:20 Anaerobic Culture - Preliminary Leg - Left Lower Bacteroides Fragilis Group 07/30/21 15:20 Anaerobic Culture - Preliminary Leg - Right Lower Bacteroides Fragilis Group 07/30/21 15:20 Wound Culture - Preliminary Leg - Right Lower Staph aureus, MRSA Streptococcus Agalactiae(Gp B) Escherichia coli Pasteurella Multocida Imaging Venous US: Radiologist's impression: IMPRESSION: Limited exam.? No evidence of deep venous thrombosis from the right common femoral through distal femoral veins.? Lab and Radiology Reports: Laboratory Results WBC 8.23 10^3/uL (4.4-10.8) 08/01/21 06:08 RBC 4.83 10^6/uL (4.36-5.78) 08/01/21 06:08 Hgb 12.0 g/dL (13.5-17.5) L 08/01/21 06:08 Hct 39.0 % (40.0-50.0) L 08/01/21 06:08 MCV 80.7 fL (80-95) 08/01/21 06:08 MCH 24.8 pg (27.0-33.0) L 08/01/21 06:08 MCHC 30.8 % (32.0-36.0) L 08/01/21 06:08 RDW 16.8 % (11.8-14.1) H 08/01/21 06:08 Plt Count 160 10^3/uL (130-400) 08/01/21 06:08 MPV 9.6 fL (8.0-11.0) 08/01/21 06:08 Immature Gran % 0.7 07/29/21 06:48 Neutrophils % 83.1 07/29/21 06:48 Lymphocytes % 7.7 07/29/21 06:48 Monocytes % 8.1 07/29/21 06:48 Eosinophils % 0.2 07/29/21 06:48 Basophils % 0.2 07/29/21 06:48 Nucleated RBC % 0 % 07/29/21 06:48 Absolute Neutrophils 6.91 10^3/uL (1.2-6.7) H 07/29/21 06:48 Absolute Lymphocytes 0.64 10^3/uL (1.2-3.4) L 07/29/21 06:48 Absolute Monocytes 0.67 10^3/uL (0.1-0.8) 07/29/21 06:48 Absolute Eosinophils 0.02 10^3/uL (0.0-0.7) 07/29/21 06:48 Absolute Basophils 0.02 10^3/uL (0.0-0.2) 07/29/21 06:48 D-Dimer 3591 ng/mlFEU (<500) H 07/28/21 14:15 VBG Lactate 0.9 mmol/L (0.6-1.4) 07/29/21 06:48 Sodium 135 mmol/L (136-145) L 08/03/21 06:05 Potassium 3.9 mmol/L (3.5-5.1) 08/03/21 06:05 Chloride 99 mmol/L (98-107) 08/03/21 06:05 Carbon Dioxide 31.6 mmol/L (21.0-32.0) 08/03/21 06:05 Anion Gap 4.4 mmol/L (3-11) 08/03/21 06:05 BUN 23 mg/dL (7-18) H 08/03/21 06:05 Creatinine 0.8 mg/dL (0.70-1.30) 08/03/21 06:05 Estimated GFR/1.73 m2 >= 60.00 (mL/min/1.73m2) 08/03/21 06:05 Glucose 155 mg/dL (74-106) H 08/03/21 06:05 Hemoglobin A1c 6.4 % (<5.7) H 08/03/21 06:05 Calcium 8.4 mg/dL (8.5-10.1) L 08/03/21 06:05 Magnesium 2.2 mg/dL (1.8-2.4) 07/29/21 06:48 Iron 39 ug/dL (65-175) L 08/01/21 06:08 TIBC 309 ug/dL (250-450) 08/01/21 06:08 Transferrin % Sat 13 % (20-55) L 08/01/21 06:08 Ferritin 60 ng/mL (26-388) 08/01/21 06:08 Total Bilirubin 0.7 mg/dL (0.2-1.0) 07/29/21 06:48 AST 28 U/L (15-37) 07/29/21 06:48 ALT 25 U/L (16-63) 07/29/21 06:48 Alkaline Phosphatase 129 U/L (46-116) H 07/29/21 06:48 C-Reactive Protein 5.72 mg/dL (0.0-0.3) H 08/01/21 06:08 NT-Pro-B Natriuret Pep 102 pg/mL (<300) 07/28/21 14:15 Total Protein 7.3 g/dL (6.4-8.2) 07/29/21 06:48 Albumin 2.4 g/dL (3.4-5.0) L 07/29/21 06:48 Triglycerides 60 mg/dL (<150) 07/29/21 06:48 Total Cholesterol 114 mg/dL (<200) 07/29/21 06:48 LDL Cholesterol, Calc 48 mg/dL (<100) 07/29/21 06:48 HDL Cholesterol 54 mg/dL (40-60) 07/29/21 06:48 TSH 0.87 uIU/mL (0.36-3.74) 07/28/21 14:15 Urine Color Yellow (Yellow) 08/02/21 21:00 Urine Clarity Clear (Clear) 08/02/21 21:00 Urine pH 6.0 (5-8) 08/02/21 21:00 Ur Specific Limon 1.015 (1.005-1.025) 08/02/21 21:00 Urine Protein Negative mg/dL (Negative) 08/02/21 21:00 Urine Ketones Negative mg/dL (Negative) 08/02/21 21:00 Urine Blood Large (Negative) H 08/02/21 21:00 Urine Nitrite Negative (Negative) 08/02/21 21:00 Urine Bilirubin Negative (Negative) 08/02/21 21:00 Urine Urobilinogen 1.0 EU/dL (Up TO 0.2) H 08/02/21 21:00 Ur Leukocyte Esterase Small (Negative) H 08/02/21 21:00 Urine RBC 10-20 HPF (0-2) H 08/02/21 21:00 Urine WBC 3-5 HPF (0-5) 08/02/21 21:00 Ur Epithelial Cells Rare HPF (Negative) 08/02/21 21:00 Urine Crystals Negative HPF (Negative) 08/02/21 21:00 Urine Bacteria Negative HPF (Negative) 08/02/21 21:00 Urine Casts Negative LPF (Negative) 08/02/21 21:00 Urine Mucus Negative (Negative) 08/02/21 21:00 Urine Other Rare Renal (Negative) 08/02/21 21:00 Ur Culture Indicated? Yes 08/02/21 21:00 Urine Glucose Negative mg/dL (Negative) 08/02/21 21:00 Vancomycin Trough 13.7 ug/mL (10.0-20.0) 07/31/21 06:52 COVID-19 Source Nasal/Nares 07/28/21 16:00 SARS-CoV-2 (PCR) Negative (Negative) 07/28/21 16:00 Add-On Test Request DONE 08/01/21 06:08 Additional Comments Additional comments: Echocardiogram performed 08/04/2021 demonstrated the following: Conclusion Normal left ventricular chamber size and wall thickness.? Estimated ejection fraction is 55%.? Wall motion is normal The right ventricle appears grossly normal in size and systolic function Both atria are normal in size There is no structural or hemodynamically significant valvular disease Estimated right ventricular systolic pressure is 30 mmHg PFSH All Active Problems (Updated 08/07/21 @ 17:41 by Flex Mcmillan) Hyponatremia (Acute) Polymicrobial bacterial infection (Acute) Constipation (Acute) MRSA cellulitis (Acute) Chronic anemia (Acute) Pressure ulcers of skin of multiple topographic sites (Acute) Chronic cutaneous venous stasis ulcer (Acute) Chronic venous stasis dermatitis of both lower extremities (Acute) Polysubstance abuse (Acute) Ambulatory dysfunction (Acute) Discharge planning issues (Acute) Alcoholic cirrhosis of liver (Acute) Lactic acidosis (Acute) Dehydration (Acute) Alcohol withdrawal (Acute) TIA (transient ischemic attack) (Acute) Alcohol withdrawal syndrome (Acute 01/15/13) Continuous chronic alcoholism (Acute 01/15/13) Acute pancreatitis (Acute 01/15/13) Acquired thrombocytopenia (Acute 01/15/13) Medical History (Updated 08/07/21 @ 17:41 by Flex Mcmillan) Acute alcohol intoxication Alcohol dependence Anemia Arthritis Bilateral leg edema Chronic pain Cirrhosis of liver Diabetic peripheral neuropathy Encephalopathy, hepatic Hepatitis C Hyperlipidemia Knee pain, right TIA (transient ischemic attack) Ulnar neuropathy Urinary retention Surgical History H/O cervical spine surgery Hx of total knee arthroplasty Social History Smoking/Tobacco Use Status: Current every day Tobacco Type: cigarettes and e-cigarettes Smoking risk assessment performed?: Yes Alcohol Intake: current Alcohol Intake frequency: 3 or more drinks per day Drug use: Daily Substance use type: marijuana Housing: apartment Number of Children: 3 What type of physical activity do you participate in: walking Do you feel safe at home: Yes Do you feel safe in your relationship?: Yes
[2021-08-06 16:40] VITALS: BP 112/79; PULSE 85; RESP 22; TEMP 37.5; O2SAT 95
--- NOTE | 2021-08-06 16:48 | PDOC.CMDIS ---
- If Service Date Differs Date of service: 08/06/21 Time of Service: 16:48 LACE Index Scoring Tool - Questions: Length of Stay (in days): 7 - 13 Acuity (Admit via E.D.?): Yes Comorbidities: Diabetes w/o Complication, Liver or Renal Disease E.D. Visits: 1 - Answers: Total Score: 14 Risk of Readmission: High Risk Care Management Discharge Reason for Hospitalization: Hyponatremia Discharge Plan: Jackson will transition to [facility] for wound care and PT. Jackson will discharge to the community when medically ready and follow up with community providers and discharge plan of care as prescribed. Jackson is in need of housing. LTM application was submitted today. Housing is unlikely to be secured prior to his discharge. Therefore Jackson has been instructed to call 211 day of discharge to request emergency housing. Patient/Family Education Needs: Review discharge instructions, limitations, medications and plan to follow up with community providers. Review plan to call 211, prior to discharging to the community for emergency housing. ask me three
[2021-08-06] MEDS: Bisacodyl 10 MG SUPP PR (17:46)
[2021-08-06] MEDS: Docusate Sodium 100 MG/10 ML CUP PO (17:46)
[2021-08-06] MEDS: Methylnaltrexone 12 MG/0.6 ML VIAL SC (17:47)
== END 2021-08-06 19:32 | disposition swing bed (61) | DRG 603 ==
LOC: ER 15:57 → MS 16:34
PROVIDERS: General Practice; Internal Medicine; Surgery; Admitting Provider Family Medicine; Emergency Provider Student in an Organized Health Care Education/Training Program; PCP Family Medicine; Visit Provider Family Medicine
PROC: 0HBLXZZ Excision of Left Lower Leg Skin, External Approach (ICD-10-PCS; CPT 97597; principal; 2021-07-30 15:45)
DX: L03.116 Cellulitis of left lower limb (principal); L97.821 Non-pressure chronic ulcer of other part of left lower leg limited to breakdown of skin; L97.811 Non-pressure chronic ulcer of other part of right lower leg limited to breakdown of skin; N39.0 Urinary tract infection, site not specified; E78.5 Hyperlipidemia, unspecified; K70.30 Alcoholic cirrhosis of liver without ascites; F10.20 Alcohol dependence, uncomplicated; Z86.73 Personal history of transient ischemic attack (TIA), and cerebral infarction without residual deficits; D69.6 Thrombocytopenia, unspecified; E11.42 Type 2 diabetes mellitus with diabetic polyneuropathy; F17.210 Nicotine dependence, cigarettes, uncomplicated; F17.290 Nicotine dependence, other tobacco product, uncomplicated; F11.10 Opioid abuse, uncomplicated; F32.A Depression, unspecified; I10 Essential (primary) hypertension; I87.2 Venous insufficiency (chronic) (peripheral); R60.0 Localized edema; L89.899 Pressure ulcer of other site, unspecified stage; K21.9 Gastro-esophageal reflux disease without esophagitis; L03.115 Cellulitis of right lower limb; F14.90 Cocaine use, unspecified, uncomplicated; D64.9 Anemia, unspecified; B95.62 Methicillin resistant Staphylococcus aureus infection as the cause of diseases classified elsewhere; B96.1 Klebsiella pneumoniae [K. pneumoniae] as the cause of diseases classified elsewhere; B96.89 Other specified bacterial agents as the cause of diseases classified elsewhere; G89.29 Other chronic pain; B95.2 Enterococcus as the cause of diseases classified elsewhere; K59.00 Constipation, unspecified; R26.2 Difficulty in walking, not elsewhere classified
CPT/HCPCS: 97597; 97598 ×14; 36410; 36415; 80048; 80053; 80061; 85027; 87040; 87077; 87081; 87635; 93306; 96365; 96375; 97110; 97162; 97530; 99285; 80202; 81003; 81015; 82728; 83036; 83540; 83550; 83605; 83735; 83880; 84443; 85025; 85379; 86140; 87070; 87075; 87086; 87186; 87205; 93970; 99223; 99232; 99233; 99238; J1170; J1644; J1940; J2060; J2250; J2270; J2370; J2405; J3010; J3490

== ENCOUNTER 2021-08-06 17:50 | Inpatient (IN) | payer MEDICAID, SELFPAY ==
[2021-08-06] MEDS: Protein Nutritional Supplement 16 GM 1 OUNCE PACKET PO (17:30)
--- NOTE | 2021-08-06 17:55 | HPE_ITS ---
Date of service: 08/06/21 Time of Service: 17:55 Assessment and Plan Assessment and plan (1) Polymicrobial bacterial infection: Status: Acute Assessment and plan: continue Augmentin and TMP/SMX, wound care per wound care nursing and surgical services. When no longer draining fibrinopurulent discharge then consider dc antibiotics. I would treat at least for 10 days given the severity of his wounds. Adding silvadene should help suppress bacterial growth. (2) MRSA cellulitis: Status: Acute (3) Chronic cutaneous venous stasis ulcer: Status: Acute Assessment and plan: wound care as above along w/ compression dressings, mobilization, elevation of dependent limbs when not ambulating should help as well as continued use of diuretics. I would apply compression stockings once his skin heals over but for now just use FAUSTINO wraps over his dressings (4) Pressure ulcers of skin of multiple topographic sites: Status: Acute Assessment and plan: avoid sedentary behavior; encourage ambulation/change of positions and avoid compression of dependent areas (5) Chronic venous stasis dermatitis of both lower extremities: Status: Acute Assessment and plan: on intact skin he should use a moisturizer cream such as lacHydrin to prevent sc aling and dry skin (6) Ambulatory dysfunction: Status: Acute Assessment and plan: continue w/ P.T. to improve gait/balance and strengthening exercises. (7) Discharge planning issues: Status: Acute Assessment and plan: CM is working w/ patient on housing upon discharge however, he apparently is not welcome to return to his prior domicile. The patient will probably have to call the [facility] housing authority for emergency m[facility]p upon discharge. (8) Depression: Status: None Assessment and plan: continue Cymbalta; consider addition of Wellbutrin but may need to reduce his Cymbalta dose and would have to use caution in setting of his alcoholic liver disease. (9) Opioid abuse: Status: None Assessment and plan: Patient had been using oxycodone but also was abusing cocaine. I have him on dilaudid for breakthrough pain but also have started him on MSContin for longer acting control of his pain. He is also on gabapentin at 900 mg tid and Cymbalta. I do not feel that we have much more to offer him for pain control. He will have to accept that he is going to have some degree of pain but if he is functional and able to ambulate w/out severe pain then I think we have achieved something. He should be referred to Dr. Galeas in pain management center upon discharge. (10) Polysubstance abuse: Status: Acute (11) Constipation: Status: Acute Assessment and plan: likely related to his chronic opiod use. better since placed on scheduled lactulose, senna and docusate. May periodically need Relistor if he his constiopation does not respond to laxatives and stool softeners. (12) Alcoholic cirrhosis of liver: Status: Acute (13) GERD (gastroesophageal reflux disease): Status: None Assessment and plan: continue protonix. I am not aware of any hx of varices and although he is chronically anemic, he has had no GI bleeding this admission that I am aware. (14) Continuous chronic alcoholism: Status: Acute Assessment and plan: despite reportedly drinking up to a fifth of whiskey a day, he has not had acute alcohol withdrawal during this admission. He does not seem to be motivated to quit drinking and likely will return to drinking upon discharge. Nevertheless he should be offered outpatient serivces for abstinence (15) Chronic anemia: Status: Acute Assessment and plan: he has a stable microcytic anemia. His iron level is low and therefore he should be started on iron supplements. He should have a c-scope as outpatient if not done in the last 5 to 10 yrs. We have not seen any acute GI bleeding this admission. continue protonix for gi protection History of Present Illness History of Present Illness Chief Complaint: bilateral leg ulcers and leg pain Narrative: Mr Austin is a 61 yr old male alcoholic w/ opoid abuse disorder who uses cocaine and drinks about 1/5 whiskey per day, who has HTN, HLD, alcoholic cirrhosis, GERD, HLD, and TIA who presented to the ED @ [facility] on 07/28 complaining of severe bilateral leg pain and weeping ulcers an difficulty walking d/t the pain. He was found to have weeping purulent ulcers on the posterior aspects of both calfs and his pain was so sevver that he refused venous US that was ordered by the ED physician. See discharge summary from today for details. Patient is entering into swing bed status as he is homeless and needs daily or at least every other day wound care for his bilateral leg ulcers. He remains on Augmentin and Bactrim DS for polymicrobial venous stasis ulcer infections. He should remain on antibiotics until there is no further purulent drainage. He is also requiring swing bed status to continue P.T. to improve his strength, balance, gait and ambulation. Review of Systems Narrative: as per discharge summary from today COUNT INCLUDES [facility] All Active Problems (Updated 08/07/21 @ 18:30 by Flex Mcmillan) Polymicrobial bacterial infection (Acute) Constipation (Acute) MRSA cellulitis (Acute) Chronic anemia (Acute) Pressure ulcers of skin of multiple topographic sites (Acute) Chronic cutaneous venous stasis ulcer (Acute) Chronic venous stasis dermatitis of both lower extremities (Acute) Polysubstance abuse (Acute) Ambulatory dysfunction (Acute) Discharge planning issues (Acute) Alcoholic cirrhosis of liver (Acute) Continuous chronic alcoholism (Acute 01/15/13) Medical History (Updated 08/07/21 @ 18:30 by Flex Mcmillan) Acute alcohol intoxication Alcohol dependence Anemia Arthritis Bilateral leg edema Chronic pain Cirrhosis of liver Diabetic peripheral neuropathy Encephalopathy, hepatic Hepatitis C Hyperlipidemia Knee pain, right TIA (transient ischemic attack) TIA (transient ischemic attack) Ulnar neuropathy Urinary retention Surgical History H/O cervical spine surgery Hx of total knee arthroplasty Social History Smoking/Tobacco Use Status: Current every day Tobacco Type: cigarettes and e- cigarettes Smoking risk assessment performed?: Yes Alcohol Intake: current Alcohol Intake frequency: 3 or more drinks per day Drug use: Daily Substance use type: marijuana Housing: apartment Number of Children: 3 What type of physical activity do you participate in: walking Do you feel safe at home: Yes Do you feel safe in your relationship?: Yes Meds Allergies and Home Medications Allergies Allergy/AdvReac Type Severity Reaction Status Date / Time venom-honey bee Allergy Severe signs of Unverified 12/24/19 18:53 stroke pregabalin [From Lyrica] Allergy Mild Unverified 12/24/19 18:53 varenicline tartrate AdvReac Unknown Nausea Unverified 12/24/19 18:53 [From Chantix] Home Medications Medication Instructions Recorded Confirmed Type epinephrine 0.3 mg/0.3 mL 0.3 mg IM DIRECTED PRN 01/15/13 12/20/19 History injection, auto-injector atorvastatin 40 mg tablet (Lipitor) 40 mg PO QPM 08/19/16 07/28/21 History lactulose 10 gram/15 mL oral 45 gm PO TID 08/19/16 08/07/21 History solution (Constulose) magnesium oxide 400 mg (241.3 mg 400 mg PO BID 11/19/16 12/20/19 History magnesium) tablet multivitamin 1 ea PO DAILY 11/19/16 08/07/21 History thiamine mononitrate (vit B1) 100 100 mg PO DAILY 11/19/16 08/07/21 History mg tablet (Vitamin B-1 (mononitrate)) aspirin 81 mg tablet,delayed 81 mg PO DAILY tab-cap 03/15/17 08/07/21 History release (Aspir-) lidocaine 5 % topical patch 1 patch TOPICAL Q24H #4 patch 10/30/18 12/20/19 Rx (Lidoderm) pantoprazole 20 mg tablet,delayed 20 mg PO DAILY 11/01/19 12/20/19 History release (Protonix) duloxetine 30 mg capsule,delayed 60 mg PO DAILY cap 07/18/21 08/07/21 History release (Cymbalta) furosemide 20 mg tablet 40 mg PO BID tab-cap 07/18/21 08/07/21 History spironolactone 50 mg tablet 50 mg PO DAILY tab-cap 07/18/21 08/07/21 History tamsulosin 0.4 mg capsule (Flomax) 0.8 mg PO DAILY cap 07/18/21 08/07/21 History trazodone 50 mg tablet 50 mg PO DAILY 07/18/21 08/07/21 History polyethylene glycol 3350 17 17 g PO DAILY PRN PRN 07/28/21 08/07/21 History gram/dose oral powder (Miralax) Exam Narrative Exam Narrative: My visit with Mr. Austin on 08/06 did not include wound exam as his dressing had already been changed. However, I found him to be alert, conversant, still complaining of his leg pains although he appeared rather comfortable watching TV. His pain seems to be worse during his dressing changes. I discussed this with his nurses and they assured me that they are pre-medicating him before dressing changes Lungs: clear Heart: RRR Abdomen: soft, nontender, nondistended; patient finally had a BM today. Legs; no edema; pedal pulses intact;no erythema over feet nor proximally above his dressings Neuro: No focal motor deficits; sensory intact to light touch Psych Mental Status:?mental status grossly normal Speech and Movement:?speech and movement normal Mood:?congruent mood Affect:?normal affect
[2021-08-06] MEDS: Sulfameth/Trimeth DS TAB 1 TAB PO (20:54)
[2021-08-06] MEDS: Gabapentin 300 MG CAP 900 MG PO (20:55)
[2021-08-06] MEDS: Amoxicillin 875/Clav. 125 TAB PO (20:55)
[2021-08-06] MEDS: Atorvastatin 40 MG TAB PO (20:56)
[2021-08-06] MEDS: Docusate Sodium 100 MG/10 ML CUP PO (20:57)
[2021-08-06] MEDS: Heparin 5,000 UNITS/ML VIAL 5000 UNITS SC (20:59)
[2021-08-06] MEDS: Senna TAB 1 TAB PO (21:09)
[2021-08-06] MEDS: traZODone 50 MG TAB PO (21:10)
[2021-08-06 22:55] VITALS: BP 100/69; PULSE 99; RESP 24; TEMP 37.2; O2SAT 97
--- NOTE | 2021-08-06 23:42 | NUR.NOTE ---
Nursing Note: asked pt to put on slipper socks so that he wouldnt fall, pt refused. educated him about the importance
[2021-08-07] MEDS: Heparin 5,000 UNITS/ML VIAL 5000 UNITS SC ×3 (02:04→17:41)
[2021-08-07] MEDS: HYDROmorphone 4 MG TAB PO (02:09)
--- NOTE | 2021-08-07 03:29 | NUR.NOTE ---
Nursing Note: Pt called out to use commode. Transferred to commode and bed alarm sounded, Pt upset about alarm I don't need a patient sitter. Left Pt to toilet and gave call light. this nurse went in to check on Pt and Pt stated he was finished. SHEAR ASSEMBLER in room with this nurse and settled Pt into bed and when attempted to reset alarm it was found to be unplugged. Pt raised voice to this nurse and stated I told you I don't need a patient sitter, I didn't fall I slid. This nurse informed Pt of policy and Pt continued to be upset, this nurse informed Pt that discussion would be had with charge nurse. Charge nurse notified
--- NOTE | 2021-08-07 03:35 | NUR.NOTE ---
This nurse was notified of patient unplugging bed alarm. Patient was asked if he understand the reason for a bed alarm, patient reported that he does not need a bed alarm because he is not a baby. He further went to state he did not fall earlier tonight he slide to the floor. And the nurses are making a big deal of the situation. Patient was encouraged to keep the call portillo at hand and to leave the bed alarm in place for his safety
[2021-08-07 07:34] VITALS: BP 102/64; PULSE 91; RESP 20; TEMP 36.6; O2SAT 92
[2021-08-07] MEDS: Gabapentin 300 MG CAP 900 MG PO ×3 (10:32→21:17)
[2021-08-07] MEDS: Tamsulosin 0.4 MG CAPCR 0.8 MG PO (10:32)
--- NOTE | 2021-08-07 10:32 | IN_ITS ---
Date of service: 08/07/21 Time of Service: 10:32 PT Notes Visit Reasons: Hyponatremia Swing Bed Level I Physical Therapy Initial Evaluation Date: 08/07/2021 Referring Doctor: Flex Mcmillan MD PT Orders: PT CONSULT: Eval/treat Precautions:? Activity as tolerated.? Contact precautions in place. Patient Profile/Admitting Diagnosis: Patient converted to swing bed level I as of 08/06/2021 for continued wound management. Jackson is a 61-year-old male who presented to the ED on 07/28/2021 due to increasing pain in both legs over the past month and worsening bilateral lower extremity edema.? Patient is diagnosed with MRSA cellulitis, pressure area of skin of multiple areas in B legs, chroninc cutaneous venous staisis ulcers, chroninc venous stasis dermatitis, opioid abuse, depression, hypertension, diabetes mellitus, alcoholic cirrhosis of liver, bilateral leg edema, hyperlipidemia, and polysubstance abuse. PMHX: All Active Problems?(Updated 07/28/21 @ 17:48 by Danny Tran MD) Cellulitis (Acute) UTI (urinary tract infection) (Acute) Ambulatory dysfunction (Acute) Discharge planning issues (Acute) Fall (Acute) Alcoholic cirrhosis of liver (Acute) Lactic acidosis (Acute) Dehydration (Acute) Alcohol withdrawal (Acute) TIA (transient ischemic attack) (Acute) Alcohol withdrawal syndrome (Acute 01/15/13) Continuous chronic alcoholism (Acute 01/15/13) Acute pancreatitis (Acute 01/15/13) Acquired thrombocytopenia (Acute 01/15/13) Medical History? Acute alcohol intoxication Alcohol dependence Anemia Arthritis Bilateral leg edema Chronic pain Cirrhosis of liver Diabetic peripheral neuropathy Encephalopathy, hepatic Hepatitis C Hyperlipidemia Knee pain, right TIA (transient ischemic attack) Ulnar neuropathy Urinary retention Surgical History? H/O cervical spine surgery Hx of total knee arthroplasty Social History/Home Situation: Rents a room in a friend's home with 4 steps to enter and bilateral rails.? Modified independent using front wheel walker.? Recently released from residential after having been incarcerated for 14 months. Equipment Owned/DME: FWW SUBJECTIVE: Patient was all dressed up and wanted to walk outdoors using 4WW. He stated that he has been here at the hospital and wanted to go outside to get some fresh air. Patient smoked used cigarette butts he picked up from the ground during this walk stating that he does not care who smoked them previously as according to him everybody eats germs and he already has contracted COVID-19. Objective: General Observation: Supine in bed.? Bilateral legs with wound dressing.? Mental Status: Alert and is able to follow instructions Pain: mild pain in BLE with movement and weight bearing ROM: Right Upper Extremity: ? Shoulder Flexion WFL. Shoulder abduction WFL. Elbow flexion WFL. Wrist flexion WFL. Functional opening and closing of hand WFL. Left Upper Extremity:? Shoulder Flexion WFL. Shoulder abduction WFL. Elbow flexion WFL. Wrist flexion WFL. Functional opening and closing of hand WFL. Right Lower Extremity: Hip flexion WFL. Hip abduction WFL. Knee flexion allows to 90 degrees Ankle dorsiflexion allows -20 degrees.? Ankle plantarflexion WFL. Left Lower Extremity: Hip flexion WFL. Hip abduction WFL. Knee flexion allows to 90 degrees Ankle dorsiflexion allows -20 degrees.? Ankle plantarflexion WFL. Strength: Right Upper Extremity: Shoulder flexors 4-/5. Shoulder abductors 4-/5. Elbow flexors 4-/5. Elbow extensors 4-/5. Licensed Psychologist Manager functional. Left Upper Extremity: Shoulder flexors 4-/5. Shoulder abductors 4-/5. Elbow flexors 4-/5. Elbow extensors 4-/5. Licensed Psychologist Manager functional. Right Lower Extremity: Hip flexors 4-/5. Hip abductors 4-/5. Knee flexors 3-/5. Knee extensors 3-/5. Ankle dorsiflexors 3-/5. Ankle plantarflexors 4-/5. Left Lower Extremity: Hip flexors 4-/5. Hip abductors 4-/5. Knee flexors 3-/5. Knee extensors 3-/5. Ankle dorsiflexors 3-/5. Ankle plantarflexors 4-/5. Sensation: Diminished as to pain and pressure on bilateral lower extremities due to chronic peripheral neuropathies Bed Mobility/Transfers: Supine to sit independent Sit to stand independent Stand to sit independent Bed to chair independent Chair to bed independent Gait: 1000 feet using four-wheeled walker with full weight bearing on B LE with modified independence.? Able to manage walker breaks as needed. No loss of balance. Balance: Static Sitting: Good Dynamic Sitting: Good Static Standing: Good Dynamic Standing: Fair Special Tests: Mobility Limitations Standardized Measure [facility] AM-PAC 6 clicks Basic Mobility Inpatient Short Form: Raw Score: 24? CMS Score: 0% deficit? ? ? Informed Consent/Education:? Patient was instructed in purpose of PT consult and plan of care. ASSESSMENT: Jackson is independent on level and outdoor surfaces for at least 1000 feet using the 4WW. He is discharged from PT as of today at modified independence using 4WW. Today's ambulation session turned out to be a maliciously planned session to meet his nicotine cravings. Patient walked from hospital entrance to the end of the administration building stopping several times to warp picker used up cigarette butts in the front lawn of the building along the way. Patient was able to find a used cigarette long enough to be smoked, he then lighted it up with the excellence manager that he took from his pocket and smoked it. He found two other ground cigarettes and did the same two more times. Sadly, his decision-making and health choices as of today make his prognosis for recovering from his wounds significantly poor. He will be provided with a 4WW for discharge to reduce fall risk. Patient is assessed as a 02433 moderate complexity based on the following: History: 59-year-old male with impairment level findings, functional limitations, and past medical history as indicated above Examination: Demonstrable impairment in strength, balance, and mobility level with underlying impairments and functional limitations as documented above Presentation:Evolving Decision Makin moderate complexity Goals: N/A. PT evaluation only. DISCHARGE RECOMMENDATIONS: [] ? Home with no services [] [X] ? Home with services.? Home when medically cleared by hospitalist.? [] ? Home with outpatient PT [] [] ? SNF for continued rehabilitation [] [] ? Correction Care [] [] ? SNF versus LTC based on ability to participate and progress [] TREATMENT CODE/TIME: 15587 x 25 minutes, 33690 x 23 minutes beginning at 10:32 AM. Thank you for the opportunity to participate in the care of this patient. Adela Meraz PT, DPT, CLT [facility] [place], [place]
[2021-08-07] MEDS: DULoxetine 30 MG CAP 60 MG PO (10:33)
[2021-08-07] MEDS: Sulfameth/Trimeth DS TAB 1 TAB PO ×2 (10:33→21:17)
[2021-08-07] MEDS: Amoxicillin 875/Clav. 125 TAB PO ×2 (10:33→21:17)
[2021-08-07] MEDS: Aspirin E.C. 81 MG TABEC PO (10:33)
[2021-08-07] MEDS: Thiamine 100 MG TAB PO (10:33)
[2021-08-07] MEDS: Furosemide 40 MG TAB PO (10:34)
[2021-08-07] MEDS: Protein Nutritional Supplement 16 GM 1 OUNCE PACKET PO ×3 (10:34→17:41)
[2021-08-07] MEDS: Spironolactone 50 MG TAB PO (10:34)
[2021-08-07] MEDS: Multivitamin TAB 1 TAB PO (10:58)
--- NOTE | 2021-08-07 14:29 | CMSA_ITS ---
- If Service Date Differs Date of service: 08/07/21 Time of Service: 14:30 SB Psychosocial/Act.Assessment - Hospital Admission Admission Date: 07/28/21 Admission From:: ED Diagnosis:: Hyponatremia - Swing Bed Admission Swing Bed Admit Date:: 08/06/21 - Social Supports PREVIOUS FUNCTIONAL STATUS/SOCIAL/FAMILY SUPPORTS:: Jackson is a 61 year old man who was recently released from [facility] after being in custodial for 14 months. He is disabled and is currently renting a room in a friend's home. He receives his meals at the home as well. Jackson does not receive any community services. He has 3 adult children and 4 grandchildren but is not in contact with any of them. - Prior to Admission Living Arrangements/Environment Prior to Admission:: Jackson had been renting a room from [facility] since his [facility] release in June. He will be unable to return there however due to his care needs and behavior so he does not currently have housing. - Education Highest Grade Completed:: 8th grade however he earned his GED Where did you attend School:: [place], [place] - Work History Employment Status:: disabled - : Yes - Benefits Financial: SSI - Jewish Active [employer] Member:: No - Advance Directives for Healthcare If no AD, do you want more information:: No - Interests Hobbies:: none Crafts:: none Table Games:: likes Monopoly Sports:: enjoys watching football Music:: country western, oldies and soft rock TV/Movies:: old movies Outdoor Activities:: hunting Gardening:: enjoys Reading:: no - Present Functional Status Physical Abilities:: prior to the development of leg wounds was active and independent Cognitive:: good Communication:: good Sensory Systems: wears glasses and dentures - Medical History PAST MEDICAL HISTORY/PAST SURGICAL HISTORY:: Medical History . Acute alcohol intoxication. Alcohol dependence. Anemia. Arthritis. Bilateral leg edema. Chronic pain. Cirrhosis of liver. Diabetic peripheral neuropathy. Encephalopathy, hepatic. Hepatitis C. Hyperlipidemia. Knee pain, right. TIA (transient ischemic attack). Ulnar neuropathy. Urinary retention. Surgical History . H/O cervical spine surgery. Hx of total knee arthroplasty General Health:: fair Past Psychiatric Treatment:: yes - Admission Data Reason for Swing Bed Admission:: wound care Discharge Plan:: Jackson will be discharged back to the community when medically ready per provider. Assessment: Jackson presented to the ED with hyponatremia but was found to have significant wounds on his lower extremities. he entered SB-1 for wound care prior to discharging back to the community. Firer Kiln: Joselyn Mcgill Date Assessment was completed:: 08/07/21
--- NOTE | 2021-08-07 14:29 | CM.SWINGPC ---
- If Service Date Differs Date of service: 08/07/21 Time of Service: 14:29 Swingbed Plan of Care Plan of care: SWING BED PROGRAM ACTIVITIES/DISCHARGE PLAN OF CARE ACTIVITIES PLAN Date: 08/07/21 Identified Need: Individualized activity plan Intervention/Plan: Jackson enjoys watching TV and ambulating in the halls. He would also enjoy pet and music therapy if it were available. Jackson has not expressed an interest in items from the activity cart. [facility] DISCHARGE PLAN Date: 08/07/21 Identified Need:Safe Discharge Plan Intervention/Plan:Jackson will be discharged back to the community when his wounds are sufficiently healed. He has made great progress with ambulation and is now independent. Referrals have been sent to [facility] and he has been in contact with [facility] regarding housing. SNF referrals were also sent but no bed offers have been received. [facility]
[2021-08-07] MEDS: Acetaminophen 325 MG TAB PO (15:03)
[2021-08-07] MEDS: Lachydrin 12% LOTION 225 GM BTL TP (17:44)
[2021-08-07] MEDS: Silver sulfaDIAZINE 1% 25 GM TUBE TP (17:45)
[2021-08-07] MEDS: Ascorbic Acid 500 MG TAB PO (21:17)
[2021-08-07] MEDS: Senna TAB 1 TAB PO (21:17)
[2021-08-07] MEDS: Ferrous Sulfate 325 MG TAB PO (21:17)
[2021-08-07] MEDS: Atorvastatin 40 MG TAB PO (21:17)
[2021-08-07] MEDS: traZODone 50 MG TAB PO (21:17)
[2021-08-07 23:13] VITALS: BP 110/73; PULSE 74; RESP 16; TEMP 36.5; O2SAT 95
[2021-08-08] MEDS: Heparin 5,000 UNITS/ML VIAL 5000 UNITS SC ×3 (02:08→17:56)
[2021-08-08] MEDS: LORazepam 0.5 MG TAB PO (02:08)
[2021-08-08 07:53] VITALS: BP 100/69; PULSE 74; RESP 18; TEMP 36.1; O2SAT 94
[2021-08-08] MEDS: Docusate Sodium 100 MG/10 ML CUP PO (08:04)
[2021-08-08] MEDS: Polyethylene Glycol 3350 17 GM PACKET PO (08:04)
[2021-08-08] MEDS: Ascorbic Acid 500 MG TAB PO ×2 (08:04→21:34)
[2021-08-08] MEDS: Spironolactone 50 MG TAB PO (08:04)
[2021-08-08] MEDS: Furosemide 40 MG TAB PO (08:04)
[2021-08-08] MEDS: Lachydrin 12% LOTION 225 GM BTL TP (08:05)
[2021-08-08] MEDS: Normal Saline Flush 10 ML SYR IVP ×2 (08:05→14:44)
[2021-08-08] MEDS: Gabapentin 300 MG CAP 900 MG PO ×3 (08:06→21:34)
[2021-08-08] MEDS: DULoxetine 30 MG CAP 60 MG PO (08:06)
[2021-08-08] MEDS: Sulfameth/Trimeth DS TAB 1 TAB PO ×2 (08:06→21:34)
[2021-08-08] MEDS: Protein Nutritional Supplement 16 GM 1 OUNCE PACKET PO ×3 (08:06→17:56)
[2021-08-08] MEDS: Ferrous Sulfate 325 MG TAB PO ×2 (08:06→21:34)
[2021-08-08] MEDS: Tamsulosin 0.4 MG CAPCR 0.8 MG PO (08:06)
[2021-08-08] MEDS: Multivitamin TAB 1 TAB PO (08:06)
[2021-08-08] MEDS: Thiamine 100 MG TAB PO (08:06)
[2021-08-08] MEDS: Aspirin E.C. 81 MG TABEC PO (08:06)
[2021-08-08] MEDS: Silver sulfaDIAZINE 1% 25 GM TUBE TP (08:07)
[2021-08-08] MEDS: Amoxicillin 875/Clav. 125 TAB PO ×2 (08:07→21:34)
[2021-08-08] MEDS: Nicotine 14 MG/24 HR PATCH TD (12:46)
[2021-08-08] MEDS: HYDROmorphone 2 MG/ML SYR IVP (14:43)
[2021-08-08] MEDS: HYDROmorphone 4 MG TAB PO (17:55)
[2021-08-08] MEDS: Insulin Aspart 300 UNITS/3 ML PEN SC (17:56)
[2021-08-08] MEDS: Atorvastatin 40 MG TAB PO (21:34)
[2021-08-08] MEDS: Senna TAB 1 TAB PO (21:34)
[2021-08-08] MEDS: traZODone 50 MG TAB PO (21:34)
[2021-08-09] MEDS: HYDROmorphone 4 MG TAB PO ×2 (01:30→14:44)
[2021-08-09] MEDS: Heparin 5,000 UNITS/ML VIAL 5000 UNITS SC ×3 (01:34→17:31)
[2021-08-09 07:35] VITALS: BP 109/63; PULSE 88; RESP 19; TEMP 36; O2SAT 96
[2021-08-09] MEDS: Nicotine 14 MG/24 HR PATCH TD (07:43)
[2021-08-09] MEDS: Protein Nutritional Supplement 16 GM 1 OUNCE PACKET PO ×3 (07:45→17:31)
[2021-08-09] MEDS: Amoxicillin 875/Clav. 125 TAB PO ×2 (07:45→21:20)
[2021-08-09] MEDS: Sulfameth/Trimeth DS TAB 1 TAB PO ×2 (07:45→21:20)
[2021-08-09] MEDS: Multivitamin TAB 1 TAB PO (07:45)
[2021-08-09] MEDS: Aspirin E.C. 81 MG TABEC PO (07:45)
[2021-08-09] MEDS: DULoxetine 30 MG CAP 60 MG PO (07:45)
[2021-08-09] MEDS: Thiamine 100 MG TAB PO (07:45)
[2021-08-09] MEDS: Gabapentin 300 MG CAP 900 MG PO ×3 (07:45→21:19)
[2021-08-09] MEDS: Tamsulosin 0.4 MG CAPCR 0.8 MG PO (07:45)
[2021-08-09] MEDS: Ferrous Sulfate 325 MG TAB PO ×2 (07:46→21:20)
[2021-08-09] MEDS: Furosemide 40 MG TAB PO (07:46)
[2021-08-09] MEDS: Spironolactone 50 MG TAB PO (07:46)
[2021-08-09] MEDS: Ascorbic Acid 500 MG TAB PO ×2 (07:46→21:20)
[2021-08-09] MEDS: Lachydrin 12% LOTION 225 GM BTL TP (07:47)
[2021-08-09] MEDS: Silver sulfaDIAZINE 1% 25 GM TUBE TP (07:48)
--- NOTE | 2021-08-09 13:16 | NUR.NOTE ---
Nursing Note: Patient left the unit to look at an apartment and when he came back requested to have his shoes and socks off. This RN took shoes and socks off and found cigarettes in his socks. When told the cigarettes needed to be out at the nurses station patient states No it can go right in here as he pointed to the top drawer of his night stand. Patient educated on the importance of not smoking in the hospital and not smoking while wearing a nicotine patch. Patient states You do not have to go around telling people that I have those in here, I will not smoke in the hospital. I am not a rule breaker. Take this patch off me so I can go outside and smoke. Patient took patch off himself and threw it in the trash. Charge nurse made aware there is cigarettes in the room.
[2021-08-09] MEDS: Atorvastatin 40 MG TAB PO (21:20)
[2021-08-09] MEDS: Senna TAB 1 TAB PO (21:20)
[2021-08-09] MEDS: traZODone 50 MG TAB PO (21:20)
[2021-08-10] MEDS: HYDROmorphone 4 MG TAB PO ×2 (01:32→10:55)
[2021-08-10] MEDS: Heparin 5,000 UNITS/ML VIAL 5000 UNITS SC ×3 (01:32→17:52)
[2021-08-10 07:48] VITALS: BP 110/72; PULSE 98; RESP 19; TEMP 36; O2SAT 94
[2021-08-10] MEDS: Amoxicillin 875/Clav. 125 TAB PO ×2 (08:57→20:39)
[2021-08-10] MEDS: Gabapentin 300 MG CAP 900 MG PO ×3 (08:57→20:39)
[2021-08-10] MEDS: Tamsulosin 0.4 MG CAPCR 0.8 MG PO (08:57)
[2021-08-10] MEDS: Protein Nutritional Supplement 16 GM 1 OUNCE PACKET PO ×3 (08:57→16:16)
[2021-08-10] MEDS: Spironolactone 50 MG TAB PO (08:57)
[2021-08-10] MEDS: Multivitamin TAB 1 TAB PO (08:57)
[2021-08-10] MEDS: DULoxetine 30 MG CAP 60 MG PO (08:57)
[2021-08-10] MEDS: Aspirin E.C. 81 MG TABEC PO (08:57)
[2021-08-10] MEDS: Furosemide 40 MG TAB PO (08:58)
[2021-08-10] MEDS: Sulfameth/Trimeth DS TAB 1 TAB PO ×2 (08:58→20:40)
[2021-08-10] MEDS: Ascorbic Acid 500 MG TAB PO ×2 (08:58→20:40)
[2021-08-10] MEDS: Silver sulfaDIAZINE 1% 25 GM TUBE TP (08:58)
[2021-08-10] MEDS: Thiamine 100 MG TAB PO (08:58)
[2021-08-10] MEDS: Ferrous Sulfate 325 MG TAB PO ×2 (08:58→20:40)
[2021-08-10] MEDS: Lachydrin 12% LOTION 225 GM BTL TP (08:58)
[2021-08-10] MEDS: LORazepam 0.5 MG TAB PO (16:22)
--- NOTE | 2021-08-10 18:17 | NUR.NOTE ---
Nursing Note: This RN asked patient if he needed anything prior to going into the room, as staff has to gown up. Patient states I wish you did not have to do that, you have such a sexy body. Patient told that is inappropriate and uncalled for patient states No it is not. this RN said yes it is inappropriate and it needs to stop. Patient stated alright. Dressing changes were done and during the dressing changes patient rated his pain 10/10. Patient educated that he is not due for any pain medication besides Tylenol. Patient stated that is stupid. I have pain medication before every dressing change. You think Tylenol will help? Go talk to the doctor he knows more about that than you do. Talk to him. This RN states I am trying to educate you on the time you can have your next pain medication. At this time the patient stopped talking and rolled on his stomach and let this RN finish dressing changes. Patient then states You guys are angels. Charge nurse made aware of the situation.'
[2021-08-10] MEDS: Atorvastatin 40 MG TAB PO (20:40)
[2021-08-10] MEDS: Insulin Aspart 300 UNITS/3 ML PEN SC (22:01)
[2021-08-11] MEDS: Heparin 5,000 UNITS/ML VIAL 5000 UNITS SC ×2 (02:54→09:18)
[2021-08-11] MEDS: HYDROmorphone 4 MG TAB PO (02:54)
[2021-08-11 04:08] VITALS: BP 114/71; PULSE 99; RESP 18; TEMP 37.1; O2SAT 95
--- NOTE | 2021-08-11 04:29 | NUR.NOTE ---
Nursing Note: Pt had an unwitnessed fall near the bathroom. He states that he was leaving the bathroom walking backwards and fell down. VSS. Pt reports that his butt hurts. There is no bruising or obvious deformities under his left buttock where he was pointing towards. Pt was lifted off the floor with A x 2 nursing staff and a gait belt. Pt refusing to wear the yellow hospital socks. Was very rude to staff. Refusing the chair alarm. Pt understands that he is at risk to fall again without supervision and the correct footwear.
[2021-08-11 06:41] LABS: Abs Immature Grans 0.06 10^3/uL (0.0-0.06); Absolute Basophil Count 0.03 10^3/uL (0.0-0.2); Absolute Eosinophil Count 0.18 10^3/uL (0.0-0.7); Absolute Lymphocyte Count 1.21 10^3/uL (1.2-3.4); Absolute Monocyte Count 0.58 10^3/uL (0.1-0.8); Absolute Neutrophil Count 4.54 10^3/uL (1.2-6.7); Basophils % 0.5; Eosinophils % 2.7; HCT 34.3 % (40.0-50.0); HGB 10.7 g/dL (13.5-17.5); Immature Grans % 0.9; Lymphocytes % 18.3; MCH 24.8 pg (27.0-33.0); MCHC 31.2 % (32.0-36.0); MCV 79.4 fL (80-95); MPV 10.1 fL (8.0-11.0); Monocytes % 8.8; Neutrophils % 68.8; Platelet Count 248 10^3/uL (130-400); RBC 4.32 10^6/uL (4.36-5.78); RDW 17.2 % (11.8-14.1); RDW-SD 49.6 fL
[2021-08-11 06:51] LABS: Anion Gap 9.8 mmol/L (3-11); BUN 43 mg/dL (7-18); CO2 22.2 mmol/L (21.0-32.0); CREATININE 1.2 mg/dL (0.70-1.30); Calcium 8.8 mg/dL (8.5-10.1); Chloride 97 mmol/L (98-107); Glucose 120 mg/dL (74-106); Magnesium 1.9 mg/dL (1.8-2.4); Potassium 4.2 mmol/L (3.5-5.1); Sodium 129 mmol/L (136-145)
[2021-08-11] MEDS: Protein Nutritional Supplement 16 GM 1 OUNCE PACKET PO ×2 (09:16→12:29)
[2021-08-11] MEDS: Docusate Sodium 100 MG/10 ML CUP PO (09:17)
[2021-08-11] MEDS: Polyethylene Glycol 3350 17 GM PACKET PO (09:17)
[2021-08-11] MEDS: Gabapentin 300 MG CAP 900 MG PO ×2 (09:18→14:41)
[2021-08-11] MEDS: DULoxetine 30 MG CAP 60 MG PO (09:19)
[2021-08-11] MEDS: Aspirin E.C. 81 MG TABEC PO (09:20)
[2021-08-11] MEDS: Silver sulfaDIAZINE 1% 25 GM TUBE TP (09:20)
[2021-08-11] MEDS: Lachydrin 12% LOTION 225 GM BTL TP (09:20)
[2021-08-11] MEDS: Amoxicillin 875/Clav. 125 TAB PO (09:20)
[2021-08-11] MEDS: Tamsulosin 0.4 MG CAPCR 0.8 MG PO (09:21)
[2021-08-11] MEDS: Ascorbic Acid 500 MG TAB PO (09:21)
[2021-08-11] MEDS: Spironolactone 50 MG TAB PO (09:21)
[2021-08-11] MEDS: Ferrous Sulfate 325 MG TAB PO (09:21)
[2021-08-11] MEDS: Sulfameth/Trimeth DS TAB 1 TAB PO (09:21)
[2021-08-11] MEDS: Thiamine 100 MG TAB PO (09:21)
[2021-08-11] MEDS: Furosemide 40 MG TAB PO (09:21)
[2021-08-11] MEDS: Multivitamin TAB 1 TAB PO (09:23)
[2021-08-11 10:52] VITALS: BP 110/59; PULSE 67; RESP 18; O2SAT 92
--- NOTE | 2021-08-11 11:59 | PDOC.CMPRO ---
- If Service Date Differs Date of service: 08/11/21 Time of Service: 11:59 Care Management Progress Note S/O: Jackson shares with that he has an apartment on [facility] and can discharge their when medically ready. His wounds are improving and he is ready for discharge, after his Bilateral LE dressing change per provider. Wound care following discharge will be provided by Dr. Figueroa's office, starting tomorrow at 1030. Transportation will be provided by [facility] and patient can use [facility] for outpatient follow up appointments. In addition, patient has found his own transportation to [facility] and back via family and taxi during his [facility] admission in the event [facility] shuttle transport does work out. Patient is aware of this plan and verbalizes understanding. A: 61 year old male admitted to [facility] for wound care and PT. P: Jackson transitioned to [facility] for wound care and PT. Jackson will discharge to the community when wound healing is satisfactory per MD. Following discharge Jackson will require daily outpatient wound care. [facility] is not able to accept the referral due to previous encounters with Jackson. Dr. Figueroa's office will resume outpatient wound care. In addition, Jackson has secured an apartment in [facility]. He will transport via [facility] when discharged. LTM application was submitted on 08/05/21. If for some reason his apartment is not ready at discharge, he can call [facility] to inquire about emergency housing. He has a community team that is familiar with his community needs. has contacted the following providers re: outpatient wound care: [facility] refuses to provide home visits for Jackson, as he has been inappropriate with staff in the past. [facility], decline taking over his wound care over. Per Ami at [facility] they don't have staffing and have no availability for daily or even weekly appointments. [facility] the Infusion Room: Do not do outpatient wound care, unless the patient is receiving IV abx. CM also called [facility], and is awaiting a call back from Kristan. Dr. Gore: Declined, also do not take Medicaid. [facility]: Sending Referral
--- NOTE | 2021-08-11 14:07 | DSE_ITS ---
Date of service: 08/11/21 Time of Service: 14:12 DS: Diagnosis Discharge Diagnosis (1) Polymicrobial bacterial infection: Start date: 08/11/21 Start time: 14:12 Status: Acute Asessment and Plan: ? Patient has a place to go and Dr. Figueroa office will continue would care continue Augmentin and TMP/SMX, wound care per wound care nursing and surgical services, until no longer draining fibrinopurulent discharge then consider dc antibiotics. Will defer to PCP for d/c of antibiotics given they are taken over management of wound. will continue silvadene s this should help suppress bacterial growth. Will give medications for pain management only a couple of pills. Drsg orders: 1.Remove old dressing. May use NS or Sterile water to moisten dressing for easier removal if adhered to wound bed. Mechanical debridement is OK and will help to remove biofilm. 2.Pat dry 3.Apply silver alginate to wounds/navjot-wound area 4.Apply ABDs and wrap with kerlix and melissa wrap with sequential compression 5.Change daily or PRN; important to keep wounds and surrounding skin as dry as possible to prevent further maceration therefore increasing the wound size and impeding healing (2) MRSA cellulitis: Start date: 08/11/21 Start time: 14:16 Status: Acute Asessment and Plan: as above (3) Pressure ulcers of skin of multiple topographic sites: Start date: 08/11/21 Start time: 14:51 Status: Acute Asessment and Plan: as above (4) Ambulatory dysfunction: Start date: 08/11/21 Start time: 14:51 Status: Resolved Asessment and Plan: Patient ambulatory on his own he was signed off from PT. (5) Constipation: Start date: 08/11/21 Start time: 14:52 Status: Chronic Asessment and Plan: Contine bowel regimen even for at home (6) Alcoholic cirrhosis of liver: Start date: 08/11/21 Start time: 14:53 Status: Chronic Asessment and Plan: Does not appear to be in need of paracentesis at this time or have issues, continues to drink alcohol (7) GERD (gastroesophageal reflux disease): Start date: 08/11/21 Start time: 14:54 Status: Chronic Asessment and Plan: does not appear to be on anything (8) Continuous chronic alcoholism: Start date: 08/11/21 Start time: 14:54 Status: Acute Asessment and Plan: Found drinking in the parking lot across the street today. Dilaudid discontinued Discussed with Dr. Byers (9) Chronic anemia: Status: Acute Discharge Plan Disposition Patient Disposition: HOME Condition: Stable Discharge Details Reason For Visit: Hyponatremia Admit Date/Time: 08/06/21 17:50 Admit Provider: Danny Tran Attending Provider: Danny Tran [facility] Hospital Course: Mr Austin is a 61 yr old male alcoholic w/ opoid abuse disorder who uses cocaine and drinks about 1/5 whiskey per day, who has HTN, HLD, alcoholic cirrhosis, GERD, HLD, and TIA who presented to the ED @ [facility] on 07/28 complaining of severe bilateral leg pain and weeping ulcers an difficulty walking d/t the pain. He was found to have weeping purulent ulcers on the posterior aspects of both calfs and his pain was so severe that he refused venous US that was ordered by the ED physician. See discharge summary for details. Patient was entered into swing bed status as he is homeless and needs daily or at least every other day wound care for his bilateral leg ulcers. He remains on Augmentin and Bactrim DS for polymicrobial venous stasis ulcer infections. He should remain on antibiotics until there is no further purulent drainage. He is being discharged today as Dr. Figueroa's office has agreed to take on his wound care and medical management starting tomorrow.Will continue antibiotic therapy and also defer to PCP for when to d/c antibiotics. he was signed of PT therefore does not require any home services and is being discharged home. Home Meds and New Rx's Prescriptions: New ammonium lactate 12 % Lotion 1 applic topical DAILY Qty: 400 0RF amoxicillin-pot clavulanate 875-125 mg Tablet 1 tab PO BID Qty: 14 0RF ascorbic acid (vitamin C) [Vitamin C] 500 mg Tablet 500 mg PO BID Qty: 60 0RF Eucerin Cream 1 applic topical PRN PRNQty: 454 0RF ferrous sulfate 325 mg (65 mg iron) Tablet 325 mg PO BID Qty: 60 0RF gabapentin 300 mg Capsule 900 mg PO TID Qty: 90 0RF morphine [MS Contin] 30 mg Tablet Extended Release 30 mg PO BID Qty: 20 0RF silver sulfadiazine [SSD] 1 % Cream 1 applic topical DAILY Qty: 85 0RF sulfamethoxazole-trimethoprim 800-160 mg Tablet 1 tab PO BID Qty: 14 0RF Continued aspirin [Aspir-81] 81 MG tablet,delayed release (DR/EC) 81 mg PO DAILY 0RF tamsulosin [Flomax] 0.4 mg capsule 0.8 mg PO DAILY 0RF spironolactone 50 mg tablet 50 mg PO DAILY 0RF duloxetine [Cymbalta] 30 mg capsule,delayed release(DR/EC) 60 mg PO DAILY 0RF trazodone 50 mg tablet 50 mg PO DAILY 0RF furosemide 20 mg tablet 40 mg PO BID 0RF epinephrine 0.3 MG/SYR auto-injector 0.3 mg IM DIRECTED PRN0RF Label Comments: has never used 05/01/16 3- Pt states he had 2 epi pens a long time ago but doesnt know where they are atorvastatin [Lipitor] 40 MG tablet 40 mg PO QPM 0RF lactulose [Constulose] 10 GM/15 ML solution 45 gm PO TID 0RF Label Comments: Pt states hes supposed to take 45gm TID, but has not been taking d/t diarrhea lidocaine [Lidoderm] 1 PATCH patch 1 patch Topical Q24H Qty: 4 0RF pantoprazole [Protonix] 20 mg Tablet,Delayed Release (Dr/Ec) 20 mg PO DAILY 0RF polyethylene glycol 3350 [Miralax] 17 gram/dose powder 17 g PO DAILY PRN PRN0RF Label Comments: Take 17 gram by mouth as directed as needed magnesium oxide 400 MG tablet 400 mg PO BID 0RF multivitamin 1 EACH capsule 1 ea PO DAILY 0RF thiamine mononitrate (vit B1) [Vitamin B-1 (mononitrate)] 100 MG tablet 100 mg PO DAILY 0RF Discharge Instructions Instructions: MRSA (Methicillin-Resistant Staphylococcus Aureus) (DC), Cellulitis (DC) Additional Instructions: Follow up with Dr. Figueroa office tomorrow at 1030. Will defer to Dr. Figueroa for antibiotic therapy duration Wound orders: 1.Remove old dressing. May use NS or Sterile water to moisten dressing for easier removal if adhered to wound bed. Mechanical debridement is OK and will help to remove biofilm. 2.Pat dry 3.Apply silver alginate to wounds/navjot-wound area 4.Apply ABDs and wrap with kerlix and melissa wrap with sequential compression 5.Change daily or PRN; important to keep wounds and surrounding skin as dry as possible to prevent further maceration therefore increasing the wound size and impeding healing Stand Alone Forms: Nursing Discharge Form Referrals: [facility] Radiology [Other] - 08/21/21 1:30 pm Sushil Figueroa [Primary Care Provider] - 08/12/21 10:30 am Activity:: Activity as Tolerated Equipment/Supplies:: No Equipment Needed Diet:: Low Sodium Discharge Orders Discharge Orders: Discharge Order (Routine); Ordered 08/11/21 Ordered By: Aminata Arredondo Discharge Data Discharge Date/Time-TO BE ENTERED AT DEPARTURE: 08/11/21 14:47 DS: Summary Time Spent with Patient providing and/or coordinating discharge services: Less than 30 minutes Status at Discharge Functional status at discharge: uses cane/walker Overall status at discharge: patient is progressing back to baseline Mental Status: mental status grossly normal Speech and Movement: speech and movement normal Mood: angry and irritable mood Affect: hostile Exam Narrative Exam Narrative: Patient found outside drinking beer. Went outside, walking back with walker, myself, RN and CM sat outside with patient and discussed plan. Patient agreeable, ambulatry with walker. He is very mean with nursing and rude towards him. Asked to sit down and listen and be respectful toward staff. Lungs: clear Heart: RRR Abdomen: soft, nontender, nondistended; patient finally had a BM today. Legs with dressing on unable to visualize, drsg c/d/i Neuro: No focal motor deficits; sensory intact to light touch Psych Mental Status:?mental status grossly normal Speech and Movement:?speech and movement normal Mood:?foul Affect:?normal affect Insight: poor Psych Mental Status: mental status grossly normal Speech and Movement: speech and movement normal Mood: angry and irritable mood Affect: hostile DS: Data Vitals/I&O Vitals and I&O: Vital Signs Temperature 37.1 C 08/11/21 04:08 Temperature Source Tympanic 08/10/21 07:48 Pulse 67 08/11/21 10:52 Pulse Rhythm Regular 08/11/21 02:53 Respiratory Rate 18 08/11/21 10:52 Respiratory Effort Non-Labored 08/11/21 10:17 Respiratory Depth Normal 08/11/21 10:17 Respiratory Pattern Normal 08/11/21 10:17 Blood Pressure 110/59 L 08/11/21 10:52 Pulse Oximetry 92 08/11/21 10:52 Oxygen Delivery Method Room Air 08/11/21 10:52 Oxygen Flow Rate 0 08/11/21 10:52 Pain Level 0 08/11/21 10:52 Intake & Output 08/10/21 08/11/21 08/11/21 23:59 11:59 23:59 Intake Total 240 / 240 490 / 490 Balance 240 / -460 490 / 490 Intake: Oral 240 / 240 490 / 490 Other: Comment pT reports voiding independently Voiding Methods Toilet Data Completed and Pending Labs on day of discharge: Labs from last 24 hours 08/11/21 08/11/21 06:20 06:20 WBC 6.60 RBC 4.32 L Hgb 10.7 L Hct 34.3 L MCV 79.4 L MCH 24.8 L MCHC 31.2 L RDW 17.2 H Plt Count 248 MPV 10.1 Immature Gran % 0.9 Neutrophils % 68.8 Lymphocytes % 18.3 Monocytes % 8.8 Eosinophils % 2.7 Basophils % 0.5 Nucleated RBC % 0.0 Absolute Neutrophils 4.54 Absolute Lymphocytes 1.21 Absolute Monocytes 0.58 Absolute Eosinophils 0.18 Absolute Basophils 0.03 Sodium 129 L Potassium 4.2 Chloride 97 L Carbon Dioxide 22.2 Anion Gap 9.8 BUN 43 H Creatinine 1.2 Estimated GFR/1.73 m2 >= 60.00 Glucose 120 H Calcium 8.8 Magnesium 1.9 PFSH All Active Problems (Updated 08/11/21 @ 14:54 by Aminata Arredondo NP) Polymicrobial bacterial infection (Acute) Constipation (Chronic) MRSA cellulitis (Acute) Chronic anemia (Acute) Pressure ulcers of skin of multiple topographic sites (Acute) Chronic cutaneous venous stasis ulcer (Chronic) Chronic venous stasis dermatitis of both lower extremities (Acute) Polysubstance abuse (Acute) Discharge planning issues (Acute) GERD (gastroesophageal reflux disease) (Chronic) Alcoholic cirrhosis of liver (Chronic) Continuous chronic alcoholism (Acute 01/15/13) Medical History (Updated 08/11/21 @ 14:54 by Aminata Arredondo NP) Acute alcohol intoxication Alcohol dependence Anemia Arthritis Bilateral leg edema Chronic pain Cirrhosis of liver Diabetic peripheral neuropathy Encephalopathy, hepatic Hepatitis C Hyperlipidemia Knee pain, right TIA (transient ischemic attack) TIA (transient ischemic attack) Ulnar neuropathy Urinary retention Surgical History H/O cervical spine surgery Hx of total knee arthroplasty Social History Smoking/Tobacco Use Status: Current every day Tobacco Type: cigarettes and e- cigarettes Smoking risk assessment performed?: Yes Alcohol Intake: current Alcohol Intake frequency: 3 or more drinks per day Drug use: Daily Substance use type: marijuana Housing: apartment Number of Children: 3 What type of physical activity do you participate in: walking Do you feel safe at home: Yes Do you feel safe in your relationship?: Yes
--- NOTE | 2021-08-11 14:50 | CMDISCH_ITS ---
- If Service Date Differs Date of service: 08/11/21 Time of Service: 14:51 LACE Index Scoring Tool - Questions: Length of Stay (in days): 4 - 6 Acuity (Admit via E.D.?): Yes Comorbidities: Diabetes w/o Complication, Mild Liver/Renal Disease, Liver or Renal Disease E.D. Visits: 1 - Answers: Total Score: 13 Risk of Readmission: High Risk Care Management Discharge Reason for Hospitalization: Wound Care Discharge Plan: Jackson will discharge to his apartment in [facility] via [facility]. He will receive daily wound care at Dr. Figueroa's office, starting tomorrow at 1030. Community CM (Amalia) at Dr. Figueroa's office will help facilitate community supports. Jackson will use [employer] for transport or arrange his own transportation. Jackson has a Radiology appointment on 08/21/21 at 1:30. Jackson will follow up with his community providers and discharge plan of care as prescribed. Patient/Family Education Needs: Review discharge instructions, limitations, medications and plan to follow up with community providers. He will receive daily wound care at his PCP's office. ask me three. Services Needed at Discharge: Transportation ([facility])
--- NOTE | 2021-08-11 16:56 | NUR.NOTE ---
Nursing Note: research development manager and provider came to see me, as they had a timeframe to discharge the patient as far as transportation was concerned, and they were unable to locate him. I knew he had stepped off the unit to have a smoke and I offered to find him for them. I located the patient on the west side of parking lot A about 5 cars back from the beginning. I reported to the patient that he needed to come back inside [facility] as they had his discharge available and there was a time needed to get him out because of transportation. As I was talking to the patient I noticed that he tried to put a can down by his side. I asked him if the drink was alcohol. He did not deny that it was, but he told me to keep my mouth shut and not say anything. I made no promise to him. i went back inside. I reported to the career guidance counselor , and the provider that he was drinking alcohol in the lot. They opted to meet him outside and review the discharge with him there. It was brought up to him by the provider that he was found to have been drinking alcohol. He was irate at this subject. He started yelling obscenities at this subject and other derogatory comments. Patient was told that he was being discharged to home. Dr Figueroa would assume his wound treatment tomorrow at 1030. That we would provide transportation home, but he would have to arrange daily transportation to and from the office. Patient was still irate and yelling, and demanded that dressings be changed today. I told the patient if he would go to his room, that I would change the dressing for him now. Nursing went upstairs and gathered then supplies necessary to do the dressing change today, and to give Dr. Figueroa some supplies to work with at his office. I took a peer MANAGER EDITORIAL in with me to perform the dressing change. He immediately ordered her to leave. I firmly said no, that I required her service to do a dressing change. He asked for career guidance counselor, when she arrived, he told her that he wanted the MANAGER EDITORIAL to leave. She told the patient that if nursing needed the MANAGER EDITORIAL to help with the duty then she must stay. He became very loud and abusive with his words. He asked where was his painkiller for the dressing change. I told the patient that the Dilaudid was discontinued d/t him drinking an alcoholic. He became louder and even more abusive. He yelled at me, snitches get stitches. I asked him if he was threatening me. He repeated to me, snitches get stitches . I again asked him if was threatening me. He denied it to me, stated he was expressing a fact. Patient was very loud and abusive Cursing repeatedly during the dressing change. He was told by career guidance counselor that he was not able to take the rolling walker he had been using here home. He said tough, he would return the walker tomorrow. He was told that was not possible. He refused to use a standard walker that was provided to him by PT until he was told by career guidance counselor that a charge would be placed to the police. In the hallway leaving he refused to sign his discharge papers, which was witnessed by several parties, and a MANAGER EDITORIAL signed off on the dc paperwork with me. He was walked off the unit and downstairs to where [facility] was waiting to take him. Noted he did not say much between the elevator ride down and the walk outside.
== END 2021-08-11 14:47 | disposition home or self-care (01) | DRG 603 ==
PROVIDERS: Nurse Practitioner Family; Admitting Provider Family Medicine; PCP Family Medicine; Visit Provider Family Medicine
DX: L03.116 Cellulitis of left lower limb (principal); L97.829 Non-pressure chronic ulcer of other part of left lower leg with unspecified severity; L97.819 Non-pressure chronic ulcer of other part of right lower leg with unspecified severity; B95.62 Methicillin resistant Staphylococcus aureus infection as the cause of diseases classified elsewhere; L89.899 Pressure ulcer of other site, unspecified stage; I87.2 Venous insufficiency (chronic) (peripheral); F32.A Depression, unspecified; F19.10 Other psychoactive substance abuse, uncomplicated; K59.03 Drug induced constipation; T40.2X5A Adverse effect of other opioids, initial encounter; K21.9 Gastro-esophageal reflux disease without esophagitis; K70.30 Alcoholic cirrhosis of liver without ascites; F10.20 Alcohol dependence, uncomplicated; D50.9 Iron deficiency anemia, unspecified; R26.2 Difficulty in walking, not elsewhere classified; E78.5 Hyperlipidemia, unspecified; R60.0 Localized edema; R33.9 Retention of urine, unspecified; Z86.73 Personal history of transient ischemic attack (TIA), and cerebral infarction without residual deficits; F17.210 Nicotine dependence, cigarettes, uncomplicated; F17.290 Nicotine dependence, other tobacco product, uncomplicated; F12.90 Cannabis use, unspecified, uncomplicated; Z59.01 Sheltered homelessness
CPT/HCPCS: 36415; 80048; 97162; 97530; 99305; 99315; 83735; 85025; J1170; J1644

== ENCOUNTER 2021-08-13 17:34 | Emergency (ER) | payer MEDICAID, SELFPAY ==
[2021-08-13 17:35] VITALS: BP 130/80; PULSE 66; RESP 18; O2SAT 97
--- NOTE | 2021-08-13 17:47 | W.ED.GENAD ---
Discharge Plan Discharge Details Chief Complaint: Orthopedic Primary Care Provider: Sushil Figueroa ED Provider: Alberto Lynn Home Meds and New Rx's Prescriptions: No Action aspirin [Aspir-81] 81 MG tablet,delayed release (DR/EC) 81 mg PO DAILY 0RF tamsulosin [Flomax] 0.4 mg capsule 0.8 mg PO DAILY 0RF spironolactone 50 mg tablet 50 mg PO DAILY 0RF duloxetine [Cymbalta] 30 mg capsule,delayed release(DR/EC) 60 mg PO DAILY 0RF trazodone 50 mg tablet 50 mg PO DAILY 0RF furosemide 20 mg tablet 40 mg PO BID 0RF epinephrine 0.3 MG/SYR auto-injector 0.3 mg IM DIRECTED PRN0RF Label Comments: has never used 05/01/16 3- Pt states he had 2 epi pens a long time ago but doesnt know where they are atorvastatin [Lipitor] 40 MG tablet 40 mg PO QPM 0RF lactulose [Constulose] 10 GM/15 ML solution 45 gm PO TID 0RF Label Comments: Pt states hes supposed to take 45gm TID, but has not been taking d/t diarrhea lidocaine [Lidoderm] 1 PATCH patch 1 patch Topical Q24H Qty: 4 0RF pantoprazole [Protonix] 20 mg Tablet,Delayed Release (Dr/Ec) 20 mg PO DAILY 0RF polyethylene glycol 3350 [Miralax] 17 gram/dose powder 17 g PO DAILY PRN [id number] Label Comments: Take 17 gram by mouth as directed as needed magnesium oxide 400 MG tablet 400 mg PO BID 0RF multivitamin 1 EACH capsule 1 ea PO DAILY 0RF thiamine mononitrate (vit B1) [Vitamin B-1 (mononitrate)] 100 MG tablet 100 mg PO DAILY 0RF ammonium lactate 12 % Lotion 1 applic topical DAILY Qty: 400 0RF amoxicillin-pot clavulanate 875-125 mg Tablet 1 tab PO BID Qty: 14 0RF ascorbic acid (vitamin C) [Vitamin C] 500 mg Tablet 500 mg PO BID Qty: 60 0RF Eucerin Cream 1 applic topical PRN PRNQty: 454 0RF ferrous sulfate 325 mg (65 mg iron) Tablet 325 mg PO BID Qty: 60 0RF gabapentin 300 mg Capsule 900 mg PO TID Qty: 90 0RF morphine [MS Contin] 30 mg Tablet Extended Release 30 mg PO BID Qty: 20 0RF silver sulfadiazine [SSD] 1 % Cream 1 applic topical DAILY Qty: 85 0RF sulfamethoxazole-trimethoprim 800-160 mg Tablet 1 tab PO BID Qty: 14 0RF HPI General Date/Time Provider Initiated Documentation: 08/13/21 17:48. HPI Narrative: 61-year-old gentleman presents to the emergency department via EMS. He states that he called dressing change of his legs. Chronic wounds on the posterior aspect of bilateral lower extremities. According to EMS states that his room was extremely dirty. He was actually discharged from the hospital yesterday. He had an appointment today with PCP, he did not follow-up. He states that he had 1 or 2 drinks today. Upon arrival to the emergency department, he is very rude. No cooperative with nursing nor with me. Patient is insistent that he does not want to be evaluated information. He reports his dressings changed on his lower extremities. ED staff called and conmfirmed that the motel he is staying is Not taking back again tonight. Related Data Home Medications Medication Instructions Recorded Confirmed epinephrine 0.3 mg/0.3 mL 0.3 mg IM DIRECTED PRN 01/15/13 12/20/19 injection, auto-injector atorvastatin 40 mg tablet (Lipitor) 40 mg PO QPM 08/19/16 07/28/21 lactulose 10 gram/15 mL oral 45 gm PO TID 08/19/16 08/07/21 solution (Constulose) magnesium oxide 400 mg (241.3 mg 400 mg PO BID 11/19/16 12/20/19 magnesium) tablet multivitamin 1 ea PO DAILY 11/19/16 08/07/21 thiamine mononitrate (vit B1) 100 100 mg PO DAILY 11/19/16 08/07/21 mg tablet (Vitamin B-1 (mononitrate)) aspirin 81 mg tablet,delayed 81 mg PO DAILY tab-cap 03/15/17 08/07/21 release (Aspir-) lidocaine 5 % topical patch 1 patch TOPICAL Q24H #4 patch 10/30/18 12/20/19 (Lidoderm) pantoprazole 20 mg tablet,delayed 20 mg PO DAILY 11/01/19 12/20/19 release (Protonix) duloxetine 30 mg capsule,delayed 60 mg PO DAILY cap 07/18/21 08/07/21 release (Cymbalta) furosemide 20 mg tablet 40 mg PO BID tab-cap 07/18/21 08/07/21 spironolactone 50 mg tablet 50 mg PO DAILY tab-cap 07/18/21 08/07/21 tamsulosin 0.4 mg capsule (Flomax) 0.8 mg PO DAILY cap 07/18/21 08/07/21 trazodone 50 mg tablet 50 mg PO DAILY 07/18/21 08/07/21 polyethylene glycol 3350 17 17 g PO DAILY PRN PRN 07/28/21 08/07/21 gram/dose oral powder (Miralax) ammonium lactate 12 % lotion 1 applic TOPICAL DAILY #400 g 08/11/21 amoxicillin 875 mg-potassium 1 tab PO BID #14 tab 08/11/21 clavulanate 125 mg tablet ascorbic acid (vitamin C) 500 mg 500 mg PO BID #60 tab 08/11/21 tablet (Vitamin C) ferrous sulfate 325 mg (65 mg 325 mg PO BID #60 tab 08/11/21 iron) tablet gabapentin 300 mg capsule 900 mg PO TID #90 cap 08/11/21 lanolin alcohols-mineral 1 applic TOPICAL PRN PRN #454 g 08/11/21 oil-w.petrolatum-ceresin topical cream (Eucerin) morphine 30 mg tablet,extended 30 mg PO BID #20 tab 08/11/21 release (MS Contin) silver sulfadiazine 1 % topical 1 applic TOPICAL DAILY #85 g 08/11/21 cream (SSD) sulfamethoxazole 800 1 tab PO BID #14 tab 08/11/21 mg-trimethoprim 160 mg tablet Previous Rx's Medication Instructions Recorded lidocaine 5 % topical patch 1 patch TOPICAL Q24H #4 patch 10/30/18 (Lidoderm) ammonium lactate 12 % lotion 1 applic TOPICAL DAILY #400 g 08/11/21 amoxicillin 875 mg-potassium 1 tab PO BID #14 tab 08/11/21 clavulanate 125 mg tablet ascorbic acid (vitamin C) 500 mg 500 mg PO BID #60 tab 08/11/21 tablet (Vitamin C) ferrous sulfate 325 mg (65 mg 325 mg PO BID #60 tab 08/11/21 iron) tablet gabapentin 300 mg capsule 900 mg PO TID #90 cap 08/11/21 lanolin alcohols-mineral 1 applic TOPICAL PRN PRN #454 g 08/11/21 oil-w.petrolatum-ceresin topical cream (Eucerin) morphine 30 mg tablet,extended 30 mg PO BID #20 tab 08/11/21 release (MS Contin) silver sulfadiazine 1 % topical 1 applic TOPICAL DAILY #85 g 08/11/21 cream (SSD) sulfamethoxazole 800 1 tab PO BID #14 tab 08/11/21 mg-trimethoprim 160 mg tablet Allergies Allergy/AdvReac Type Severity Reaction Status Date / Time venom-honey bee Allergy Severe signs of Unverified 12/24/19 18:53 stroke pregabalin [From Lyrica] Allergy Mild Unverified 12/24/19 18:53 varenicline tartrate AdvReac Unknown Nausea Unverified 12/24/19 18:53 [From Chantix] General Stated Complaint: Orthopedic SCOT: 4 Review of Systems Narrative: Unable to obtain ROS given patient is cooperative and actually very PFSH All Active Problems (Updated 08/11/21 @ 14:54 by Aminata Arredondo NP) Polymicrobial bacterial infection (Acute) Constipation (Chronic) MRSA cellulitis (Acute) Chronic anemia (Acute) Pressure ulcers of skin of multiple topographic sites (Acute) Chronic cutaneous venous stasis ulcer (Chronic) Chronic venous stasis dermatitis of both lower extremities (Acute) Polysubstance abuse (Acute) Discharge planning issues (Acute) GERD (gastroesophageal reflux disease) (Chronic) Alcoholic cirrhosis of liver (Chronic) Continuous chronic alcoholism (Acute 01/15/13) Medical History (Updated 08/11/21 @ 14:54 by Aminata Arredondo NP) Acute alcohol intoxication Alcohol dependence Anemia Arthritis Bilateral leg edema Chronic pain Cirrhosis of liver Diabetic peripheral neuropathy Encephalopathy, hepatic Hepatitis C Hyperlipidemia Knee pain, right TIA (transient ischemic attack) TIA (transient ischemic attack) Ulnar neuropathy Urinary retention Surgical History H/O cervical spine surgery Hx of total knee arthroplasty Social History Smoking/Tobacco Use Status: Current every day Tobacco Type: cigarettes and e-cigarettes Smoking risk assessment performed?: Yes Alcohol Intake: current Alcohol Intake frequency: 3 or more drinks per day Alcohol type: beer, wine and hard liquor Drug use: Daily Substance use type: marijuana Housing: apartment Number of Children: 3 What type of physical activity do you participate in: walking Do you feel safe at home: Yes Do you feel safe in your relationship?: Yes Exam Narrative Exam Narrative: Arrives awake and alert poorly cooperative. He is oriented to person place and time. Speech is clear. HEENT negative Chest clear to auscultation bilaterally Heart regular rhythm and rate Abdomen soft nondistended nontender Skin good cap refill Neuro grossly intact Lower extremity. Chronic wounds bilateral calves Course patient beligerent with staff. he appears mildly intoxicated after d/w [employer] [facility],the plan is to send the patient to the sober up with police Vital Signs Vital signs: Vital Signs Pulse 66 08/13/21 17:35 Respiratory Rate 18 08/13/21 17:35 Blood Pressure 130/80 08/13/21 17:35 Pulse Oximetry 97 08/13/21 17:35 Pulse 66 08/13/21 17:35 Respiratory Rate 18 08/13/21 17:35 Blood Pressure 130/80 08/13/21 17:35 Blood Pressure Position Supine 08/13/21 17:35 Pulse Oximetry 97 08/13/21 17:35 Oxygen Delivery Method Room Air 08/13/21 17:35 Oxygen Flow Rate 0 08/13/21 17:35 Pain Level 10 08/13/21 17:35
--- NOTE | 2021-08-13 17:54 | NUR.NOTE ---
Patient refusing arm identification band. Nursing Note:
--- NOTE | 2021-08-13 18:34 | SUR.PHASEI ---
pt with bilateral legs dressed
[2021-08-13 18:37] LABS: ETHANOL BLOOD 135.7 mg/dL (<10)
--- NOTE | 2021-08-13 18:41 | NUR.NOTE ---
Patient continues to yell obscenities at staff. Patient has been counselled. Nursing Note:
== END 2021-08-13 19:01 | disposition home or self-care (01) ==
PROVIDERS: Emergency Provider Emergency Medicine; PCP Family Medicine
DX: F10.129 Alcohol abuse with intoxication, unspecified (principal); Y90.6 Blood alcohol level of 120-199 mg/100 ml
CPT/HCPCS: 99285; 80320; 99283

== ENCOUNTER 2021-08-14 12:57 | Emergency (ER) | payer MEDICAID, SELFPAY ==
[2021-08-14 12:58] VITALS: BP 143/107; PULSE 109; RESP 18; TEMP 37; O2SAT 100
== END 2021-08-14 15:23 ==
PROVIDERS: PCP Family Medicine
DX: Z53.29 Procedure and treatment not carried out because of patient's decision for other reasons (principal)

== ENCOUNTER 2021-08-16 09:52 | Emergency (ER) | payer MEDICAID, SELFPAY ==
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
[2021-08-16 09:52] VITALS: BP 140/89; PULSE 93; RESP 16; TEMP 36.8; O2SAT 100
[2021-08-16 09:59] VITALS: BP 140/89; PULSE 92; O2SAT 100
--- NOTE | 2021-08-16 10:15 | DI.CT_ITS ---
Exam(s) CT THORACIC LUMBAR SPINE WO EXAM: CT THORACIC LUMBAR SPINE WO CLINICAL HISTORY: s/p fall, midline back pain. TECHNIQUE: Imaging Protocol: Axial computed tomography images with coronal and sagittal reformatted images were created and reviewed COMPARISON: CT CERVICAL SPINE WITHOUT CONTRA from 02/21/[address] CHEST/ABD/PEL W from 11/05/2018 CR XR LUMBAR SPINE COMPLETE from 11/01/2019 MR MR LUMBAR SPINE WO/W from 12/21/2019 FINDINGS: CT of the thoracic spine:: The vertebral body heights are well maintained. Alignment is satisfactory. No fracture is seen. There are degenerative disc changes with small endplate osteophytes. Previous posterior fusion extending down to the T2 level. No narrowing of the central canal. The visualized portions of the lungs are clear. CT of the lumbar spine: There is no evidence of acute fracture. There are severe degenerative disc changes with and with end plate osteophytes, severe disc space narrowing as well as severe skull sclerosis from L2-3 through L 4 5. Facet degenerative changes are also present. The degenerative changes cause mild scoliosis. T here is mild of multiple level neural foraminal narrowing. Central canal stenosis is seen at L3-4 an d L4-5. Soft Tissues: The visualized SI joints and sacrum are will maintained. The aorta is heavily calcifie d. Urinary bladder is noted to be markedly distended. There is mild diffuse wall thickening. IMPRESSION: Degenerative changes in the thoracic and lumbar spine. No acute fracture. RADIATION DOSE DELIVERED: 1,490mGy.cm Total DLP DATA REPOSITORY: All CT scans at this facility are submitted to the National Radiology Data Registry (NRDR) Dose Index Registry (DIR) with the [employer] ([employer]). RADIATION OPTIMIZATION: All CT scans at this facility use at least one of these dose optimization te chniques: automated exposure control; mA and/or kV adjustment per patient size (includes targeted exa ms where dose is matched to clinical indication); or iterative reconstruction.
[2021-08-16] MEDS: Ketorolac 30 MG/ML VIAL IVP (10:45)
[2021-08-16] MEDS: Normal Saline 1,000 ML 1000 ML IV (10:45)
[2021-08-16 10:53] LABS: Abs Immature Grans 0.02 10^3/uL (0.0-0.06); Absolute Basophil Count 0.02 10^3/uL (0.0-0.2); Absolute Eosinophil Count 0.19 10^3/uL (0.0-0.7); Absolute Lymphocyte Count 1.25 10^3/uL (1.2-3.4); Absolute Monocyte Count 0.38 10^3/uL (0.1-0.8); Absolute Neutrophil Count 4.27 10^3/uL (1.2-6.7); Basophils % 0.3; Eosinophils % 3.1; HCT 39.7 % (40.0-50.0); HGB 12.4 g/dL (13.5-17.5); Immature Grans % 0.3; Lymphocytes % 20.4; MCH 25.1 pg (27.0-33.0); MCHC 31.2 % (32.0-36.0); MCV 80 fL (80-95); MPV 9.8 fL (8.0-11.0); Monocytes % 6.2; Neutrophils % 69.7; Platelet Count 200 10^3/uL (130-400); RBC 4.94 10^6/uL (4.36-5.78); RDW 17.2 % (11.8-14.1); RDW-SD 49.9 fL; WBC 6.13 10^3/uL (4.4-10.8)
[2021-08-16 11:06] LABS: ALT 80 U/L (16-63); AST 60 U/L (15-37); Albumin 3.2 g/dL (3.4-5.0); Alkaline Phosphatase 109 U/L (46-116); Anion Gap 5.9 mmol/L (3-11); BUN 10 mg/dL (7-18); Bilirubin, Total 0.6 mg/dL (0.2-1.0); C-Reactive Protein 0.25 mg/dL (0.0-0.3); CO2 27.1 mmol/L (21.0-32.0); CREATININE 0.8 mg/dL (0.70-1.30); Calcium 8.9 mg/dL (8.5-10.1); Chloride 100 mmol/L (98-107); Glucose 101 mg/dL (74-106); Potassium 3.6 mmol/L (3.5-5.1); Sodium 133 mmol/L (136-145); Total Protein 8.4 g/dL (6.4-8.2)
[2021-08-16 11:50] VITALS: BP 151/94; PULSE 91; O2SAT 100
[2021-08-16 11:52] VITALS: TEMP 36.6
--- NOTE | 2021-08-16 12:03 | DI.VRAD_ITS ---
PROCEDURE INFORMATION: Exam: CT Thoracic Spine Without Contrast Exam date and time: 08/16/2021 11:24 AM Age: 61 years old Clinical indication: Low back pain; Pain in thoracic spine TECHNIQUE: Imaging protocol: Computed tomography images of the thoracic spine without contrast. COMPARISON: 1. MR THORACIC SPINE WO/W 12/21/2019 1:04 PM 2. MR LUMBAR SPINE WO/W 12/21/2019 12:36 PM FINDINGS: Vertebrae: Posterior cervical fusion. There are lucencies in the posterior elements at C6 of unknown etiology. Recommend dedicated CT cervical spine if clinically indicated. Posterior fusion extends into the thoracic spine to involve T1 and T2. The rods and screws are intact. There is no evidence of acute fracture.There is no evidence of malalignment or dislocation. Discs/Spinal canal/Neural foramina: No significant disc protrusion. No severe spinal canal stenosis. No significant neural foraminal narrowing. Soft tissues: Unremarkable. IMPRESSION: 1. Posterior cervical fusion. There are lucencies in the posterior elements at C6 of unknown etiology. Recommend dedicated CT cervical spine if clinically indicated. 2. Posterior fusion extends into the thoracic spine to involve T1 and T2. The rods and screws are intact. 3. There is no evidence of acute fracture.There is no evidence of malalignment or dislocation. PROCEDURE INFORMATION: Exam: CT Lumbar Spine Without Contrast Exam date and time: 08/16/2021 11:24 AM Age: 61 years old Clinical indication: Low back pain; Pain in thoracic spine TECHNIQUE: Imaging protocol: Computed tomography images of the lumbar spine without contrast. COMPARISON: 1. MR THORACIC SPINE WO/W 12/21/2019 1:04 PM 2. MR LUMBAR SPINE WO/W 12/21/2019 12:36 PM FINDINGS: Vertebrae: No acute fracture. Normal alignment. Discs/Spinal canal/Neural foramina: Broad-based disc bulge, facet hypertrophy, and ligament hypertrophy at L3/L4 and L4/L5 consistent with spinal stenosis. . Broad-based disc bulge at L2/L3 and L5/S1. Soft tissues: Unremarkable. IMPRESSION: 1. Broad-based disc bulge, facet hypertrophy, and ligament hypertrophy at L3/L4 and L4/L5 consistent with spinal stenosis. . 2. Broad-based disc bulge at L2/L3 and L5/S1 may represent degenerative disc disease. Dictated and Authenticated by: Soumya Floyd MD. Ordering:ANA LUISA Glaser MD
[2021-08-16 12:59] LABS: Bilirubin Negative (Negative); Blood Moderate (Negative); Clarity Clear (Clear); Glucose Negative (Negative); Ketones Negative (Negative); Leukocyte Esterase Negative (Negative); Nitrite Negative (Negative)
[2021-08-16 13:09] LABS: Bacteria Negative HPF (Negative); C & S Indicated? No; Casts Negative LPF (Negative); Crystals Negative HPF (Negative); Epithelial Cells Rare HPF (Negative); Mucus Trace (Negative); RBC 20-50 HPF (0-2); WBC 0-2 HPF (0-5)
[2021-08-16 13:35] VITALS: BP 122/88; PULSE 95; RESP 18; TEMP 36.7; O2SAT 97
--- NOTE | 2021-08-16 13:36 | NUR.NOTE ---
pt states that he does not have a home to go to and he wants to go to a skilled nursing Nursing Note:
== END 2021-08-16 14:18 | disposition home or self-care (01) ==
PROVIDERS: Emergency Provider Physician Assistant; PCP Family Medicine
DX: M54.50 Low back pain, unspecified (principal); G89.29 Other chronic pain; E11.622 Type 2 diabetes mellitus with other skin ulcer; L97.828 Non-pressure chronic ulcer of other part of left lower leg with other specified severity; L97.818 Non-pressure chronic ulcer of other part of right lower leg with other specified severity; Z79.4 Long term (current) use of insulin; R74.01 Elevation of levels of liver transaminase levels
CPT/HCPCS: 36415; 36416; 80053; 82962; 96361; 96374; 99284; 72128; 72131; 81003; 81015; 85025; 86140; J1885

== ENCOUNTER 2021-08-17 07:51 | Emergency (ER) | payer MEDICAID, SELFPAY ==
[2021-08-17 07:54] VITALS: BP 133/80; PULSE 99; RESP 16; TEMP 35.4; O2SAT 97
--- NOTE | 2021-08-17 08:06 | ED.GENADUL_ITS ---
Discharge Plan Disposition Patient Disposition: HOME Condition: Stable Discharge Details Clinical Impression: Acute exacerbation of chronic low back pain, Open leg wound Primary Care Provider: Sushil Figueroa ED Provider: Jailyn Pedro Home Meds and New Rx's Prescriptions: New amoxicillin-pot clavulanate 875-125 mg tablet 1 tab PO BID 7 Days Qty: 14 0RF sulfamethoxazole-trimethoprim [Bactrim DS] 800-160 mg tablet 1 tab PO BID 7 Days Qty: 14 0RF Continued aspirin [Aspir-81] 81 MG tablet,delayed release (DR/EC) 81 mg PO DAILY 0RF tamsulosin [Flomax] 0.4 mg capsule 0.8 mg PO DAILY 0RF spironolactone 50 mg tablet 50 mg PO DAILY 0RF duloxetine [Cymbalta] 30 mg capsule,delayed release(DR/EC) 60 mg PO DAILY 0RF trazodone 50 mg tablet 50 mg PO DAILY 0RF furosemide 20 mg tablet 40 mg PO BID 0RF epinephrine 0.3 MG/SYR auto-injector 0.3 mg IM DIRECTED PRN0RF Label Comments: has never used 05/01/16 3- Pt states he had 2 epi pens a long time ago but doesnt know where they are atorvastatin [Lipitor] 40 MG tablet 40 mg PO QPM 0RF lactulose [Constulose] 10 GM/15 ML solution 45 gm PO TID 0RF Label Comments: Pt states hes supposed to take 45gm TID, but has not been taking d/t diarrhea lidocaine [Lidoderm] 1 PATCH patch 1 patch Topical Q24H Qty: 4 0RF pantoprazole [Protonix] 20 mg Tablet,Delayed Release (Dr/Ec) 20 mg PO DAILY 0RF polyethylene glycol 3350 [Miralax] 17 gram/dose powder 17 g PO DAILY PRN PRN0RF Label Comments: Take 17 gram by mouth as directed as needed amoxicillin-pot clavulanate 875-125 mg tablet 1 tab PO BID 7 Days Qty: 14 0RF sulfamethoxazole-trimethoprim [Bactrim DS] 800-160 mg tablet 1 tab PO BID 7 Days Qty: 14 0RF magnesium oxide 400 MG tablet 400 mg PO BID 0RF multivitamin 1 EACH capsule 1 ea PO DAILY 0RF thiamine mononitrate (vit B1) [Vitamin B-1 (mononitrate)] 100 MG tablet 100 mg PO DAILY 0RF ammonium lactate 12 % Lotion 1 applic topical DAILY Qty: 400 0RF amoxicillin-pot clavulanate 875-125 mg Tablet 1 tab PO BID Qty: 14 0RF ascorbic acid (vitamin C) [Vitamin C] 500 mg Tablet 500 mg PO BID Qty: 60 0RF Eucerin Cream 1 applic topical PRN PRNQty: 454 0RF ferrous sulfate 325 mg (65 mg iron) Tablet 325 mg PO BID Qty: 60 0RF gabapentin 300 mg Capsule 900 mg PO TID Qty: 90 0RF morphine [MS Contin] 30 mg Tablet Extended Release 30 mg PO BID Qty: 20 0RF silver sulfadiazine [SSD] 1 % Cream 1 applic topical DAILY Qty: 85 0RF sulfamethoxazole-trimethoprim 800-160 mg Tablet 1 tab PO BID Qty: 14 0RF Discharge Instructions Instructions: Chronic Wound Care (ED), Back Pain (ED) Additional Instructions: You are again given new prescriptions for the antibiotics that were prescribed last week. Pick these up tomorrow at [facility] and take them as directed until finished. You were given bottles of these antibiotics to go now to take for today. Alternate tylenol and motrin as needed and directed for pain. Call your primary care doctor's office tomorrow to schedule a follow-up appointment for reevaluation of your chronic back pain and if needed for referral to the pain clinic. Return immediately to the emergency department if you develop any worsening or new concerning symptoms such as leg weakness or numbness, bowel or bladder incontinence, worsening pain or any other concerns. Discharge Data Discharge Physician: Jailyn Pedro Medical Decision Making 61-year-old male with a history of polysubstance abuse including opiate addiction, alcohol abuse, hepatitis C, chronic back pain, liver cirrhosis, diabetes, hyperlipidemia, TIA who presents for request for narcotic pain medication for his chronic back pain. Patient was seen here yesterday for the same complaint and had unremarkable labs and CT thoracic and lumbar spine which noted degenerative disc disease but otherwise no acute findings. He has chronic leg wounds for which he was admitted earlier this month but has been noncompliant with Augmentin and Bactrim. He was given new prescriptions of these yesterday but claims he does not have them. Of note, he has been here multiple times this week, seen in the ED midweek and taken to the assisted to get sober. He was also reported to be escorted off the ED premises by police at least one other time this week. He was also given multiple walkers which are now at the correctional center and at his grandmother's house where he was reported to be no longer welcome. He was brought in by the correctional center this morning after he was there overnight for intoxication. He requested evaluation for his back pain and requesting narcotics. No cauda equina symptoms. No fever. His vitals are within normal limits. Patient is not intoxicated and oriented x3 at this time. Back appears normal to inspection and nontender without cellulitis or acute trauma. The new dressings and Juan wraps applied to his legs here yesterday appear clean dry and intact. His distal pulses are intact. Motor/sensory grossly intact without focal deficits. He was able to ambulate here with his walker which is his baseline. Patient's main request is narcotic pain medication. Discussed with patient that we do not treat chronic pain in the emergency department. He is advised to alternate Tylenol and Motrin and can call his primary care doctor tomorrow for reevaluation and referral to the pain clinic as needed. He was given doses of Augmentin and Bactrim for today and new prescriptions were again sent to his pharmacy for pickup tomorrow. Patient requested RCT transportation to a local residence. Usual and customary return precautions given prior to discharge. Medical Records Medical records reviewed: Yes I reviewed the patient's medical records. HPI General Mode of arrival: wheelchair . Date/Time Provider Initiated Documentation: 08/17/21 08:05 . Information obtained by: patient . HPI Narrative: Patient is a 61-year-old male with a history of polysubstance abuse with history of opiate addiction, hepatitis C, GERD, hyperlipidemia, diabetes, TIA who presents for evaluation of his chronic back pain and requesting pain medication. It was reported that patient presented to the ED multiple times this week and had been escorted out by police. Patient was seen here yesterday for his back pain and had unremarkable work-up for acute findings including CT thoracic and lumbar spine which noted degenerative disc disease. He was admitted here earlier this month for polymicrobial bacterial wound infection and bacteremia associated with leg cellulitis and was discharged from here 6 days ago on Augmentin and Bactrim which he states he is unsure if he is taking. When he was seen here yesterday he was given new prescriptions of these antibiotic but he states he is not sure that they are at this time. Patient was brought here today from the correctional center where he had been since last night for public intoxication. Patient is no longer in police custody. Patient is here now requesting narcotics for his back pain. He denies any bowel or bladder incontinence, leg weakness or numbness. Related Data Home Medications Medication Instructions Recorded Confirmed epinephrine 0.3 mg/0.3 mL 0.3 mg IM DIRECTED PRN 01/15/13 08/17/21 injection, auto-injector atorvastatin 40 mg tablet (Lipitor) 40 mg PO QPM 08/19/16 08/17/21 lactulose 10 gram/15 mL oral 45 gm PO TID 08/19/16 08/17/21 solution (Constulose) magnesium oxide 400 mg (241.3 mg 400 mg PO BID 11/19/16 08/17/21 magnesium) tablet multivitamin 1 ea PO DAILY 11/19/16 08/17/21 thiamine mononitrate (vit B1) 100 100 mg PO DAILY 11/19/16 08/17/21 mg tablet (Vitamin B-1 (mononitrate)) aspirin 81 mg tablet,delayed 81 mg PO DAILY tab-cap 03/15/17 08/17/21 release (Aspir-) lidocaine 5 % topical patch 1 patch TOPICAL Q24H #4 patch 10/30/18 08/17/21 (Lidoderm) pantoprazole 20 mg tablet,delayed 20 mg PO DAILY 11/01/19 08/17/21 release (Protonix) duloxetine 30 mg capsule,delayed 60 mg PO DAILY cap 07/18/21 08/17/21 release (Cymbalta) furosemide 20 mg tablet 40 mg PO BID tab-cap 07/18/21 08/17/21 spironolactone 50 mg tablet 50 mg PO DAILY tab-cap 07/18/21 08/17/21 tamsulosin 0.4 mg capsule (Flomax) 0.8 mg PO DAILY cap 07/18/21 08/17/21 trazodone 50 mg tablet 50 mg PO DAILY 07/18/21 08/17/21 polyethylene glycol 3350 17 17 g PO DAILY PRN PRN 04/11/22 05/01/22 gram/dose oral powder (Miralax) ammonium lactate 12 % lotion 1 applic TOPICAL DAILY #400 g 08/11/21 08/17/21 amoxicillin 875 mg-potassium 1 tab PO BID #14 tab 08/11/21 08/17/21 clavulanate 125 mg tablet ascorbic acid (vitamin C) 500 mg 500 mg PO BID #60 tab 08/11/21 08/17/21 tablet (Vitamin C) ferrous sulfate 325 mg (65 mg 325 mg PO BID #60 tab 08/11/21 08/17/21 iron) tablet gabapentin 300 mg capsule 900 mg PO TID #90 cap 08/11/21 08/17/21 lanolin alcohols-mineral 1 applic TOPICAL PRN PRN #454 g 08/11/21 08/17/21 oil-w.petrolatum-ceresin topical cream (Eucerin) morphine 30 mg tablet,extended 30 mg PO BID #20 tab 08/11/21 08/17/21 release (MS Contin) silver sulfadiazine 1 % topical 1 applic TOPICAL DAILY #85 g 08/11/21 08/17/21 cream (SSD) sulfamethoxazole 800 1 tab PO BID #14 tab 08/11/21 08/17/21 mg-trimethoprim 160 mg tablet amoxicillin 875 mg-potassium 1 tab PO BID 7 Days #14 tab 08/16/21 08/17/21 clavulanate 125 mg tablet sulfamethoxazole 800 1 tab PO BID 7 Days #14 tab 08/16/21 08/17/21 mg-trimethoprim 160 mg tablet (Bactrim DS) amoxicillin 875 mg-potassium 1 tab PO BID 7 Days #14 tab 08/17/21 clavulanate 125 mg tablet sulfamethoxazole 800 1 tab PO BID 7 Days #14 tab 08/17/21 mg-trimethoprim 160 mg tablet (Bactrim DS) Previous Rx's Medication Instructions Recorded lidocaine 5 % topical patch 1 patch TOPICAL Q24H #4 patch 10/30/18 (Lidoderm) ammonium lactate 12 % lotion 1 applic TOPICAL DAILY #400 g 08/11/21 amoxicillin 875 mg-potassium 1 tab PO BID #14 tab 08/11/21 clavulanate 125 mg tablet ascorbic acid (vitamin C) 500 mg 500 mg PO BID #60 tab 08/11/21 tablet (Vitamin C) ferrous sulfate 325 mg (65 mg 325 mg PO BID #60 tab 08/11/21 iron) tablet gabapentin 300 mg capsule 900 mg PO TID #90 cap 08/11/21 lanolin alcohols-mineral 1 applic TOPICAL PRN PRN #454 g 08/11/21 oil-w.petrolatum-ceresin topical cream (Eucerin) morphine 30 mg tablet,extended 30 mg PO BID #20 tab 08/11/21 release (MS Contin) silver sulfadiazine 1 % topical 1 applic TOPICAL DAILY #85 g 08/11/21 cream (SSD) sulfamethoxazole 800 1 tab PO BID #14 tab 08/11/21 mg-trimethoprim 160 mg tablet amoxicillin 875 mg-potassium 1 tab PO BID 7 Days #14 tab 08/16/21 clavulanate 125 mg tablet sulfamethoxazole 800 1 tab PO BID 7 Days #14 tab 08/16/21 mg-trimethoprim 160 mg tablet (Bactrim DS) amoxicillin 875 mg-potassium 1 tab PO BID 7 Days #14 tab 08/17/21 clavulanate 125 mg tablet sulfamethoxazole 800 1 tab PO BID 7 Days #14 tab 08/17/21 mg-trimethoprim 160 mg tablet (Bactrim DS) Allergies Allergy/AdvReac Type Severity Reaction Status Date / Time venom-honey bee Allergy Severe signs of Unverified 08/17/21 07:58 stroke pregabalin [From Lyrica] Allergy Mild Unverified 08/17/21 07:58 varenicline tartrate AdvReac Unknown Nausea Unverified 08/17/21 07:58 [From Chantix] General Stated Complaint: Nk/Back Pain SCOT: 4 Review of Systems All systems reviewed & are unremarkable except as noted in HPI and below Constitutional Constitutional: Denies chills, Denies excessive sweating, Denies fatigue, Denies fever(s), Denies weakness and Denies weight loss Eyes Eyes: Reports system reviewed and no additional complaints, except as documented and Denies blurry vision ENT Ears, Nose, Mouth, and Throat: Denies vertigo, Denies dizziness, Denies otalgia, Denies nasal congestion, Denies sore throat and Denies throat swelling Cardiovascular Cardiovascular: Denies chest pain, Denies syncope, Denies rapid heart rate and Denies dyspnea Respiratory Respiratory: Denies chest congestion, Denies cough, Denies pain on inspiration and Denies dyspnea Gastrointestinal Gastrointestinal: Denies abdominal pain, Denies diarrhea and Denies vomiting Genitourinary Genitourinary: Denies hematuria, Denies dysuria and Denies flank pain Musculoskeletal Musculoskeletal: Reports back pain and Denies joint swelling Integumentary/Breasts Skin/Breast: Reports lesions and Denies rash Neurologic Neurologic: Denies behavioral changes, Denies confusion, Denies vertigo, Denies dizziness, Denies syncope, Denies localized weakness and Denies weakness Psychiatric Psychiatric: Denies behavioral changes, Denies confusion and Denies depression Endocrine Endocrine: Denies excessive sweating and Denies fatigue Hematologic/Lymphatic Hematologic/Lymphatic: Denies easy bruising and Denies lymphadenopathy Allergic/Immunologic Allergic/Immunologic: Denies throat swelling PFSH All Active Problems (Updated 08/17/21 @ 08:17 by Jailyn Pedro DO) Alcohol intoxication (Acute) Acute exacerbation of chronic low back pain (Acute) Open leg wound (Acute) Acute exacerbation of chronic low back pain (Acute) Open leg wound (Acute) Polymicrobial bacterial infection (Acute) Constipation (Chronic) MRSA cellulitis (Acute) Chronic anemia (Acute) Pressure ulcers of skin of multiple topographic sites (Acute) Chronic cutaneous venous stasis ulcer (Chronic) Chronic venous stasis dermatitis of both lower extremities (Acute) Polysubstance abuse (Acute) Discharge planning issues (Acute) GERD (gastroesophageal reflux disease) (Chronic) Alcoholic cirrhosis of liver (Chronic) Continuous chronic alcoholism (Acute 01/15/13) Medical History (Updated 08/17/21 @ 08:17 by Jailyn Pedro DO) Acute alcohol intoxication Alcohol dependence Anemia Arthritis Bilateral leg edema Chronic pain Cirrhosis of liver Diabetic peripheral neuropathy Encephalopathy, hepatic Hepatitis C Hyperlipidemia Knee pain, right TIA (transient ischemic attack) TIA (transient ischemic attack) Ulnar neuropathy Urinary retention Surgical History H/O cervical spine surgery Hx of total knee arthroplasty Social History Smoking/Tobacco Use Status: Current every day Tobacco Type: cigarettes and e- cigarettes Smoking risk assessment performed?: Yes Alcohol Intake: current Alcohol Intake frequency: 3 or more drinks per day Alcohol type: beer, wine and hard liquor Drug use: Occasionally Substance use type: marijuana Housing: apartment Number of Children: 3 What type of physical activity do you participate in: walking Do you feel safe at home: Yes Do you feel safe in your relationship?: Yes Exam Const General: cooperative and healthy appearing Orientation: alert and awake [facility] Head: normal to inspection Ears: hearing grossly normal bilaterally and external ears normal General nose exam: external nose normal Face and sinus: normal facial exam Eyes General: appearance normal, both eyes and all related structures Eyelids: eyelids normal Pupils: PERRL EOM: EOM intact bilaterally Neck Neck: normal visual inspection Lymphatic: no lymphadenopathy noted Chest Chest: normal inspection of the chest Resp Effort & Inspection: normal respiratory effort and able to speak in complete sentences Auscultation: clear to auscultation bilaterally Cardio Rate: regular rate Rhythm: regular rhythm GI Inspection: normal to inspection Palpation: soft, not firm, no guarding, no hepatosplenomegaly, no masses and nontender Auscultation: hypoactive bowel sounds Back/Spine/Pelvis Back: no CVA tenderness Thoracic/Lumbar Spine: thoracic and lumbar spine normal to inspection, straight leg raise negative bilaterally, No thoracic spinal tenderness and No lumbar spinal tenderness Skin General skin exam: no rashes or lesions noted Neuro General: patient alert and patient awake Cognition: normal cognition Speech: speech normal Gait: normal gait Motor: muscle tone normal throughout and strength 5/5 throughout Sensory Exam: no sensory deficits noted Plantar Reflexes: Equivocal: bilateral (negative babinski b/l ) Extrem Other: B/l lower extremity juan wraps appear generally clean, dry and intact. B/L DP/PT pulses intact. Psych Appearance: grossly normal Mental Status: mental status grossly normal Speech and Movement: speech and movement normal Affect: normal affect Thought Process: normal Course Vital Signs Vital signs: Vital Signs Temperature 95.7 F L 08/17/21 07:54 Pulse 99 H 08/17/21 07:54 Respiratory Rate 16 08/17/21 07:54 Blood Pressure 133/80 08/17/21 07:54 Pulse Oximetry 97 08/17/21 07:54 Temperature 95.7 F L 08/17/21 07:54 Temperature Source Tympanic 08/17/21 07:54 Pulse 99 H 08/17/21 07:54 Respiratory Rate 16 08/17/21 07:54 Respiratory Effort 08/17/21 07:54 Blood Pressure 133/80 08/17/21 07:54 Blood Pressure Position Sitting 08/17/21 07:54 Pulse Oximetry 97 08/17/21 07:54 Oxygen Delivery Method Room Air 08/17/21 07:54 Oxygen Flow Rate 0 08/17/21 07:54 Pain Level 10 08/17/21 07:54
[2021-08-17] MEDS: Amox. 875/Clav. 125, 2 TABS/BTL 1 TAB PO (08:35)
[2021-08-17] MEDS: Sulfameth/Trimeth DS, 2 TABS/BTL 1 TAB PO (08:38)
== END 2021-08-17 08:40 | disposition home or self-care (01) ==
PROVIDERS: Emergency Provider Physician Assistant; PCP Family Medicine
DX: M54.50 Low back pain, unspecified (principal); G89.29 Other chronic pain; S81.802A Unspecified open wound, left lower leg, initial encounter; S81.801A Unspecified open wound, right lower leg, initial encounter; X58.XXXA Exposure to other specified factors, initial encounter
CPT/HCPCS: 99283

== ENCOUNTER → 2021-08-21 02:35 | Outpatient (CLI) | payer MEDICAID, SELFPAY | PROVIDERS: PCP Family Medicine; Visit Provider Family Medicine ==

== ENCOUNTER 2021-08-21 08:19 | Emergency (ER) | payer MEDICAID, SELFPAY ==
--- NOTE | 2021-08-21 08:51 | ED.GENADUL_ITS ---
Discharge Plan Disposition Patient Disposition: AGAINST MEDICAL ADVICE Condition: Stable Discharge Details Clinical Impression: Chronic pain, Generalized weakness, Bilateral leg weakness Primary Care Provider: Sushil Figueroa ED Provider: Jailyn Pedro Home Meds and New Rx's Prescriptions: Continued aspirin [Aspir-81] 81 MG tablet,delayed release (DR/EC) 81 mg PO DAILY 0RF tamsulosin [Flomax] 0.4 mg capsule 0.8 mg PO DAILY 0RF spironolactone 50 mg tablet 50 mg PO DAILY 0RF duloxetine [Cymbalta] 30 mg capsule,delayed release(DR/EC) 60 mg PO DAILY 0RF trazodone 50 mg tablet 50 mg PO DAILY 0RF furosemide 20 mg tablet 40 mg PO BID 0RF epinephrine 0.3 MG/SYR auto-injector 0.3 mg IM DIRECTED PRN0RF Label Comments: has never used 05/01/16 3- Pt states he had 2 epi pens a long time ago but doesnt know where they are atorvastatin [Lipitor] 40 MG tablet 40 mg PO QPM 0RF lactulose [Constulose] 10 GM/15 ML solution 45 gm PO TID 0RF Label Comments: Pt states hes supposed to take 45gm TID, but has not been taking d/t diarrhea lidocaine [Lidoderm] 1 PATCH patch 1 patch Topical Q24H Qty: 4 0RF pantoprazole [Protonix] 20 mg Tablet,Delayed Release (Dr/Ec) 20 mg PO DAILY 0RF polyethylene glycol 3350 [Miralax] 17 gram/dose powder 17 g PO DAILY PRN PRN0RF Label Comments: Take 17 gram by mouth as directed as needed magnesium oxide 400 MG tablet 400 mg PO BID 0RF multivitamin 1 EACH capsule 1 ea PO DAILY 0RF thiamine mononitrate (vit B1) [Vitamin B-1 (mononitrate)] 100 MG tablet 100 mg PO DAILY 0RF ammonium lactate 12 % Lotion 1 applic topical DAILY Qty: 400 0RF amoxicillin-pot clavulanate 875-125 mg Tablet 1 tab PO BID Qty: 14 0RF ascorbic acid (vitamin C) [Vitamin C] 500 mg Tablet 500 mg PO BID Qty: 60 0RF Eucerin Cream 1 applic topical PRN PRNQty: 454 0RF ferrous sulfate 325 mg (65 mg iron) Tablet 325 mg PO BID Qty: 60 0RF gabapentin 300 mg Capsule 900 mg PO TID Qty: 90 0RF morphine [MS Contin] 30 mg Tablet Extended Release 30 mg PO BID Qty: 20 0RF silver sulfadiazine [SSD] 1 % Cream 1 applic topical DAILY Qty: 85 0RF sulfamethoxazole-trimethoprim 800-160 mg Tablet 1 tab PO BID Qty: 14 0RF Discharge Instructions Instructions: Chronic Pain (ED), Weakness (ED) Additional Instructions: You are leaving the hospital AGAINST MEDICAL ADVICE. If you are stating that you cannot walk, it is recommended that you stay for lab work and MRI of the lumbar spine for further evaluation to rule out a potential spinal cord injury. Drink plenty of fluids and get plenty of rest. Alternate tylenol and motrin as needed and directed for pain. Follow-up with your primary care doctor in 1 week. Return to the emergency department with any worsening or new concerning symptoms. Discharge Data Discharge Date/Time-TO BE ENTERED AT DEPARTURE: 08/21/21 09:36 Discharge Physician: Jailyn Pedro Medical Decision Making 61-year-old male with a history of polysubstance abuse including alcohol and opiate abuse, depression, GERD, cirrhosis, chronic back pain requiring the use of a walker, hepatitis C, hyperlipidemia, TIA who presents with a complaint of pain all over. Patient has been seen here 4 times in the past week for the same complaint. He uses a walker at baseline. Patient rude to staff on arrival and would not allow vitals to be taken. He has the bandages on his lower legs that were placed here few days ago and is not allowing removal and is demanding to leave. He did allow an evaluation of his back which appears normal to inspection and nontender. He is able to lift both legs. He has normal rectal tone. He is neurovascular intact and appears nontoxic. Patient had CT T and L-spine last week which noted degenerative changes. Discussed that we can obtain lab work and MRI lumbar spine today for his persistent symptoms but he is refusing and demanding to leave. Risks of and disability due to missed or incomplete diagnoses explained and patient understands. He is alert and oriented and demonstrates capacity to make decisions. He does not appear intoxicated. Case discussed with care management who are placing referrals for chronic care management. Usual and customary return precautions given prior to discharge. Medical Records Medical records reviewed: Yes I reviewed the patient's medical records. HPI General Mode of arrival: EMS . Date/Time Provider Initiated Documentation: 08/21/21 08:48 . Limitations to Documentation: no limitations . Information obtained by: patient . HPI Narrative: Patient is a 61-year-old male well-known to the emergency department with multiple recent visits, history of polysubstance abuse including alcohol and opiate, anxiety, depression, chronic pain, hepatitis C, hyperlipidemia, chronic leg wounds for which he is currently on antibiotics who presents for pain all over and difficulty ambulating today. This is the patient's fourth visit in the last week and has been here other multiple times and escorted off the premises. He uses a walker for ambulation at baseline. He was admitted here last month for polymicrobial wound infection and bacteremia associated with leg cellulitis. He was discharged home on antibiotics which she has been noncompliant with. He presents today with diffuse body pain and difficulty ambulating mostly due to his migraines and back pain. He denies any bowel or bladder incontinence. Related Data Home Medications Medication Instructions Recorded Confirmed epinephrine 0.3 mg/0.3 mL 0.3 mg IM DIRECTED PRN 01/15/13 08/21/21 injection, auto-injector atorvastatin 40 mg tablet (Lipitor) 40 mg PO QPM 08/19/16 08/21/21 lactulose 10 gram/15 mL oral 45 gm PO TID 08/19/16 08/21/21 solution (Constulose) magnesium oxide 400 mg (241.3 mg 400 mg PO BID 11/19/16 08/21/21 magnesium) tablet multivitamin 1 ea PO DAILY 11/19/16 08/21/21 thiamine mononitrate (vit B1) 100 100 mg PO DAILY 11/19/16 08/21/21 mg tablet (Vitamin B-1 (mononitrate)) aspirin 81 mg tablet,delayed 81 mg PO DAILY tab-cap 03/15/17 08/21/21 release (Aspir-) lidocaine 5 % topical patch 1 patch TOPICAL Q24H #4 patch 10/30/18 08/21/21 (Lidoderm) pantoprazole 20 mg tablet,delayed 20 mg PO DAILY 11/01/19 08/21/21 release (Protonix) duloxetine 30 mg capsule,delayed 60 mg PO DAILY cap 07/18/21 08/21/21 release (Cymbalta) furosemide 20 mg tablet 40 mg PO BID tab-cap 07/18/21 08/21/21 spironolactone 50 mg tablet 50 mg PO DAILY tab-cap 07/18/21 08/21/21 tamsulosin 0.4 mg capsule (Flomax) 0.8 mg PO DAILY cap 07/18/21 08/21/21 trazodone 50 mg tablet 50 mg PO DAILY 07/18/21 08/21/21 polyethylene glycol 3350 17 17 g PO DAILY PRN PRN 07/28/21 08/21/21 gram/dose oral powder (Miralax) ammonium lactate 12 % lotion 1 applic TOPICAL DAILY #400 g 08/11/21 08/21/21 amoxicillin 875 mg-potassium 1 tab PO BID #14 tab 08/11/21 08/21/21 clavulanate 125 mg tablet ascorbic acid (vitamin C) 500 mg 500 mg PO BID #60 tab 08/11/21 08/21/21 tablet (Vitamin C) ferrous sulfate 325 mg (65 mg 325 mg PO BID #60 tab 08/11/21 08/21/21 iron) tablet gabapentin 300 mg capsule 900 mg PO TID #90 cap 08/11/21 08/21/21 lanolin alcohols-mineral 1 applic TOPICAL PRN PRN #454 g 08/11/21 08/21/21 oil-w.petrolatum-ceresin topical cream (Eucerin) morphine 30 mg tablet,extended 30 mg PO BID #20 tab 08/11/21 08/21/21 release (MS Contin) silver sulfadiazine 1 % topical 1 applic TOPICAL DAILY #85 g 08/11/21 08/21/21 cream (SSD) sulfamethoxazole 800 1 tab PO BID #14 tab 08/11/21 08/21/21 mg-trimethoprim 160 mg tablet Previous Rx's Medication Instructions Recorded lidocaine 5 % topical patch 1 patch TOPICAL Q24H #4 patch 10/30/18 (Lidoderm) ammonium lactate 12 % lotion 1 applic TOPICAL DAILY #400 g 08/11/21 amoxicillin 875 mg-potassium 1 tab PO BID #14 tab 08/11/21 clavulanate 125 mg tablet ascorbic acid (vitamin C) 500 mg 500 mg PO BID #60 tab 08/11/21 tablet (Vitamin C) ferrous sulfate 325 mg (65 mg 325 mg PO BID #60 tab 08/11/21 iron) tablet gabapentin 300 mg capsule 900 mg PO TID #90 cap 08/11/21 lanolin alcohols-mineral 1 applic TOPICAL PRN PRN #454 g 08/11/21 oil-w.petrolatum-ceresin topical cream (Eucerin) morphine 30 mg tablet,extended 30 mg PO BID #20 tab 08/11/21 release (MS Contin) silver sulfadiazine 1 % topical 1 applic TOPICAL DAILY #85 g 08/11/21 cream (SSD) sulfamethoxazole 800 1 tab PO BID #14 tab 08/11/21 mg-trimethoprim 160 mg tablet Allergies Allergy/AdvReac Type Severity Reaction Status Date / Time venom-honey bee Allergy Severe signs of Unverified 08/21/21 12:45 stroke pregabalin [From Lyrica] Allergy Mild Unverified 08/21/21 12:45 varenicline tartrate AdvReac Unknown Nausea Unverified 08/21/21 12:45 [From Chantix] General Stated Complaint: GenMedical SCOT: 3 Review of Systems All systems reviewed & are unremarkable except as noted in HPI and below Constitutional Constitutional: Denies chills, Denies excessive sweating, Denies fatigue, Denies fever(s), Reports weakness and Denies weight loss Eyes Eyes: Reports system reviewed and no additional complaints, except as documented and Denies blurry vision ENT Ears, Nose, Mouth, and Throat: Denies vertigo, Denies dizziness, Denies otalgia, Denies nasal congestion, Denies sore throat and Denies throat swelling Cardiovascular Cardiovascular: Denies chest pain, Denies syncope, Denies rapid heart rate and Denies dyspnea Respiratory Respiratory: Denies chest congestion, Denies cough, Denies pain on inspiration and Denies dyspnea Gastrointestinal Gastrointestinal: Denies abdominal pain, Denies diarrhea and Denies vomiting Genitourinary Genitourinary: Denies hematuria, Denies dysuria and Denies flank pain Musculoskeletal Musculoskeletal: Reports back pain and Denies joint swelling Integumentary/Breasts Skin/Breast: Denies lesions and Denies rash Neurologic Neurologic: Denies behavioral changes, Denies confusion, Denies vertigo, Denies dizziness, Denies syncope, Reports localized weakness and Reports weakness Psychiatric Psychiatric: Denies behavioral changes, Denies confusion and Denies depression Endocrine Endocrine: Denies excessive sweating and Denies fatigue Hematologic/Lymphatic Hematologic/Lymphatic: Denies easy bruising and Denies lymphadenopathy Allergic/Immunologic Allergic/Immunologic: Denies throat swelling PFSH All Active Problems (Updated 08/21/21 @ 14:46 by Jailyn Pedro DO) Alcohol intoxication (Acute) Acute exacerbation of chronic low back pain (Acute) Open leg wound (Acute) Acute exacerbation of chronic low back pain (Acute) Open leg wound (Acute) Chronic pain (Chronic) Generalized weakness (Acute) Bilateral leg weakness (Acute) Chronic wound of extremity (Acute) Bilateral leg weakness (Acute) Chronic back pain (Acute) Polymicrobial bacterial infection (Acute) Constipation (Chronic) MRSA cellulitis (Acute) Chronic anemia (Acute) Pressure ulcers of skin of multiple topographic sites (Acute) Chronic cutaneous venous stasis ulcer (Chronic) Chronic venous stasis dermatitis of both lower extremities (Acute) Polysubstance abuse (Acute) Discharge planning issues (Acute) GERD (gastroesophageal reflux disease) (Chronic) Alcoholic cirrhosis of liver (Chronic) Continuous chronic alcoholism (Acute 01/15/13) Medical History (Updated 08/21/21 @ 14:46 by Jailyn Pedro DO) Acute alcohol intoxication Alcohol dependence Anemia Arthritis Bilateral leg edema Chronic pain Cirrhosis of liver Diabetic peripheral neuropathy Encephalopathy, hepatic Hepatitis C Hyperlipidemia Knee pain, right TIA (transient ischemic attack) TIA (transient ischemic attack) Ulnar neuropathy Urinary retention Surgical History H/O cervical spine surgery Hx of total knee arthroplasty Social History Smoking/Tobacco Use Status: Current every day Tobacco Type: cigarettes and e- cigarettes Smoking risk assessment performed?: Yes Alcohol Intake: current Alcohol Intake frequency: 3 or more drinks per day Alcohol type: beer, wine and hard liquor Drug use: Occasionally Substance use type: marijuana Housing: apartment Number of Children: 3 What type of physical activity do you participate in: walking Do you feel safe at home: Yes Do you feel safe in your relationship?: Yes Exam Const General: cooperative and other (yelling, moaning) Orientation: alert, awake and oriented x3 HENMT Head: normal to inspection Ears: hearing grossly normal bilaterally and external ears normal General nose exam: external nose normal Face and sinus: normal facial exam Mouth: oral mucosae normal Eyes General: appearance normal, both eyes and all related structures Eyelids: eyelids normal Pupils: PERRL EOM: EOM intact bilaterally Neck Neck: normal visual inspection Lymphatic: no lymphadenopathy noted Chest Chest: normal inspection of the chest Resp Effort & Inspection: normal respiratory effort and able to speak in complete sentences Auscultation: clear to auscultation bilaterally Cardio Rate: regular rate Rhythm: regular rhythm GI Inspection: normal to inspection Palpation: soft, not firm, no guarding, no hepatosplenomegaly, no masses and nontender Auscultation: normal bowel sounds Rectal Exam: visual inspection normal and normal sphincter tone Back/Spine/Pelvis Cervical Spine: No cervical spinal tenderness Thoracic/Lumbar Spine: thoracic and lumbar spine normal to inspection, No thoracic spinal tenderness and No lumbar spinal tenderness Skin General skin exam: no rashes or lesions noted Neuro General: patient alert and patient awake Cognition: normal cognition Speech: speech normal Gait: normal gait Motor: muscle tone normal throughout Sensory Exam: no sensory deficits noted DTR's: Rt Patellar: 0, Lt Patellar: 0, Rt Ankle: 0 and Lt Ankle: 0 Plantar Reflexes: Equivocal: bilateral (negative babinski b/l ) Extrem General: normal to inspection, full ROM and capillary refill normal Other: B/l lower extremity melissa wraps clean, dry, intact. B/l DP/PT pulses intact. Psych Appearance: grossly normal Mental Status: mental status grossly normal Speech and Movement: speech and movement normal Affect: normal affect Thought Process: normal
[2021-08-21 09:09] VITALS: BP 133/85; PULSE 85; TEMP 36.8; O2SAT 94
--- NOTE | 2021-08-21 09:29 | CMPROGNOTE_ITS ---
- If Service Date Differs Date of service: 08/21/21 Time of Service: 09:29 Care Management Progress Note Jackson presents in the ED via EMS for back pain. He refuses care and is at times belligerent with staff. CM meets with him to discuss a referral to the [facility], which Jackson is agreeable to. CM completes and faxes a referral to Gabrielle Farrell RN, of [facility]. Jackson demands to leave and to return to the [facility]. [facility] provides transportation back to the [facility] in [facility].
--- NOTE | 2021-08-21 09:29 | PDOC.ERCMPRO ---
- If Service Date Differs Date of service: 08/21/21 Time of Service: 09:29 Care Management Progress Note Jackson presents in the ED via EMS for back pain. He refuses care and is at times belligerent with staff. CM meets with him to discuss a referral to the [facility], which Jackson is agreeable to. CM completes and faxes a referral to Gabrielle Farrell RN, of [facility]. Jackson demands to leave and to return to the [facility]. [facility] provides transportation back to the [facility] in [place]
[2021-08-21 09:50] VITALS: RESP 16
== END 2021-08-21 09:36 | disposition left against medical advice (07) ==
LOC: ER 09:53
PROVIDERS: Emergency Provider Physician Assistant; PCP Family Medicine
DX: M62.81 Muscle weakness (generalized) (principal); R53.1 Weakness; G89.29 Other chronic pain; M54.9 Dorsalgia, unspecified; Z53.29 Procedure and treatment not carried out because of patient's decision for other reasons
CPT/HCPCS: 99283

== ENCOUNTER 2021-08-21 12:35 | Emergency (ER) | payer MEDICAID, SELFPAY ==
[2021-08-21 12:40] VITALS: BP 144/82; PULSE 99; RESP 16; TEMP 36.8; O2SAT 100
--- NOTE | 2021-08-21 14:41 | ED.GENADUL_ITS ---
Discharge Plan Disposition Patient Disposition: HOME Condition: Stable Discharge Details Clinical Impression: Chronic wound of extremity, Bilateral leg weakness, Chronic back pain Primary Care Provider: Sushil Figueroa ED Provider: Jailyn Pedro Home Meds and New Rx's Prescriptions: Continued aspirin [Aspir-81] 81 MG tablet,delayed release (DR/EC) 81 mg PO DAILY 0RF tamsulosin [Flomax] 0.4 mg capsule 0.8 mg PO DAILY 0RF spironolactone 50 mg tablet 50 mg PO DAILY 0RF duloxetine [Cymbalta] 30 mg capsule,delayed release(DR/EC) 60 mg PO DAILY 0RF trazodone 50 mg tablet 50 mg PO DAILY 0RF furosemide 20 mg tablet 40 mg PO BID 0RF epinephrine 0.3 MG/SYR auto-injector 0.3 mg IM DIRECTED PRN0RF Label Comments: has never used 05/01/16 3- Pt states he had 2 epi pens a long time ago but doesnt know where they are atorvastatin [Lipitor] 40 MG tablet 40 mg PO QPM 0RF lactulose [Constulose] 10 GM/15 ML solution 45 gm PO TID 0RF Label Comments: Pt states hes supposed to take 45gm TID, but has not been taking d/t diarrhea lidocaine [Lidoderm] 1 PATCH patch 1 patch Topical Q24H Qty: 4 0RF pantoprazole [Protonix] 20 mg Tablet,Delayed Release (Dr/Ec) 20 mg PO DAILY 0RF polyethylene glycol 3350 [Miralax] 17 gram/dose powder 17 g PO DAILY PRN PRN0RF Label Comments: Take 17 gram by mouth as directed as needed amoxicillin-pot clavulanate 875-125 mg tablet 1 tab PO BID 7 Days Qty: 14 0RF sulfamethoxazole-trimethoprim [Bactrim DS] 800-160 mg tablet 1 tab PO BID 7 Days Qty: 14 0RF amoxicillin-pot clavulanate 875-125 mg tablet 1 tab PO BID 7 Days Qty: 14 0RF sulfamethoxazole-trimethoprim [Bactrim DS] 800-160 mg tablet 1 tab PO BID 7 Days Qty: 14 0RF magnesium oxide 400 MG tablet 400 mg PO BID 0RF multivitamin 1 EACH capsule 1 ea PO DAILY 0RF thiamine mononitrate (vit B1) [Vitamin B-1 (mononitrate)] 100 MG tablet 100 mg PO DAILY 0RF ammonium lactate 12 % Lotion 1 applic topical DAILY Qty: 400 0RF amoxicillin-pot clavulanate 875-125 mg Tablet 1 tab PO BID Qty: 14 0RF ascorbic acid (vitamin C) [Vitamin C] 500 mg Tablet 500 mg PO BID Qty: 60 0RF Eucerin Cream 1 applic topical PRN PRNQty: 454 0RF ferrous sulfate 325 mg (65 mg iron) Tablet 325 mg PO BID Qty: 60 0RF gabapentin 300 mg Capsule 900 mg PO TID Qty: 90 0RF morphine [MS Contin] 30 mg Tablet Extended Release 30 mg PO BID Qty: 20 0RF silver sulfadiazine [SSD] 1 % Cream 1 applic topical DAILY Qty: 85 0RF sulfamethoxazole-trimethoprim 800-160 mg Tablet 1 tab PO BID Qty: 14 0RF Discharge Instructions Instructions: Acute Wound Care (ED), Back Pain (ED) Additional Instructions: Change your leg wound dressings once daily. Take the antibiotics you were given for your leg wounds as directed until finished. Your primary care doctor has ordered outpatient radiology studies for your symptoms. Please follow-up with the radiology department regarding scheduling of these tests. Follow-up with your primary care doctor in 1 week. Return to the emergency department with any worsening or new concerning symptoms such as fever, bowel or bladder incontinence, worsening back pain or inability to walk. Discharge Data Discharge Physician: Jailyn Pedro Medical Decision Making 61-year-old male with a history of polysubstance abuse including alcohol and opiates, diabetes, liver cirrhosis, hepatitis C, hyperlipidemia well-known to the emergency department with multiple frequent visits who has been here 5 times in the last week including twice today present for request for I need to eat, you need to redress my leg wounds, and I need a ride to [place]. Patient was seen her earlier today for his chronic back pain and bilateral leg weakness and refused work-up including labs or MRI lumbar spine and left AMA. He was seen here last week and had lab work and CT thoracic and lumbar spine which noted degenerative changes but no other acute findings. Earlier today he was able to ambulate with his walker and able to lift legs bilaterally with normal rectal tone. He denies bowel or bladder incontinence. Patient again is refusing any lab work or imaging. He is requesting water, food, dressing change and arrived with RCT. Discussed that with his back pain and leg weakness we would recommend additional work-up that he is declining. The radiology department stated that they have outpatient test for MRI ordered per his PCP but patient is refusing to have these done at this time. He is advised to follow- up with the radiology department as outpatient for the studies. His leg wounds were redressed. There is yellow discharge noted on his Telfa dressing but no evidence of cellulitis. He is afebrile and appears nontoxic. His vitals are within normal limits. He was given multiple new prescriptions for his Augmentin and doxycycline but has been noncompliant. Advised to follow up with the primary care doctor for re-evaluation. Usual and customary return precautions given prior to discharge. Medical Records Medical records reviewed: Yes I reviewed the patient's medical records. HPI General Mode of arrival: wheelchair . Date/Time Provider Initiated Documentation: 08/21/21 12:46 . Limitations to Documentation: no limitations . Information obtained by: patient . HPI Narrative: Patient is a 61-year-old male with a history of polysubstance abuse including alcohol and opiates, GERD, depression, cirrhosis, chronic bilateral lower leg wounds for which she was recently admitted and noted to have a polymicrobial wound infection and bacteremia sent home on antibiotics which she has been noncompliant with presents for chronic leg and back pain. This is patient's fifth visit this week and second today. He left here earlier AMA. He states he is here because the police called to have him escorted from the [facility] in. He is requesting transport RCT transport to [facility]. Patient states he does not want evaluation for his back or leg pain. He states I need to eat and my leg wounds need to be redressed and you need to take me to [place]. Related Data Home Medications Medication Instructions Recorded Confirmed epinephrine 0.3 mg/0.3 mL 0.3 mg IM DIRECTED PRN 01/15/13 08/21/21 injection, auto-injector atorvastatin 40 mg tablet (Lipitor) 40 mg PO QPM 08/19/16 08/21/21 lactulose 10 gram/15 mL oral 45 gm PO TID 08/19/16 08/21/21 solution (Constulose) magnesium oxide 400 mg (241.3 mg 400 mg PO BID 11/19/16 08/21/21 magnesium) tablet multivitamin 1 ea PO DAILY 11/19/16 08/21/21 thiamine mononitrate (vit B1) 100 100 mg PO DAILY 11/19/16 08/21/21 mg tablet (Vitamin B-1 (mononitrate)) aspirin 81 mg tablet,delayed 81 mg PO DAILY tab-cap 03/15/17 08/21/21 release (Aspir-) lidocaine 5 % topical patch 1 patch TOPICAL Q24H #4 patch 10/30/18 08/21/21 (Lidoderm) pantoprazole 20 mg tablet,delayed 20 mg PO DAILY 11/01/19 08/21/21 release (Protonix) duloxetine 30 mg capsule,delayed 60 mg PO DAILY cap 07/18/21 08/21/21 release (Cymbalta) furosemide 20 mg tablet 40 mg PO BID tab-cap 07/18/21 08/21/21 spironolactone 50 mg tablet 50 mg PO DAILY tab-cap 07/18/21 08/21/21 tamsulosin 0.4 mg capsule (Flomax) 0.8 mg PO DAILY cap 07/18/21 08/21/21 trazodone 50 mg tablet 50 mg PO DAILY 07/18/21 08/21/21 polyethylene glycol 3350 17 17 g PO DAILY PRN PRN 07/28/21 08/21/21 gram/dose oral powder (Miralax) ammonium lactate 12 % lotion 1 applic TOPICAL DAILY #400 g 08/11/21 08/21/21 amoxicillin 875 mg-potassium 1 tab PO BID #14 tab 08/11/21 08/21/21 clavulanate 125 mg tablet ascorbic acid (vitamin C) 500 mg 500 mg PO BID #60 tab 08/11/21 08/21/21 tablet (Vitamin C) ferrous sulfate 325 mg (65 mg 325 mg PO BID #60 tab 08/11/21 08/21/21 iron) tablet gabapentin 300 mg capsule 900 mg PO TID #90 cap 08/11/21 08/21/21 lanolin alcohols-mineral 1 applic TOPICAL PRN PRN #454 g 08/11/21 08/21/21 oil-w.petrolatum-ceresin topical cream (Eucerin) morphine 30 mg tablet,extended 30 mg PO BID #20 tab 08/11/21 08/21/21 release (MS Contin) silver sulfadiazine 1 % topical 1 applic TOPICAL DAILY #85 g 08/11/21 08/21/21 cream (SSD) sulfamethoxazole 800 1 tab PO BID #14 tab 08/11/21 08/21/21 mg-trimethoprim 160 mg tablet amoxicillin 875 mg-potassium 1 tab PO BID 7 Days #14 tab 08/16/21 08/21/21 clavulanate 125 mg tablet sulfamethoxazole 800 1 tab PO BID 7 Days #14 tab 08/16/21 08/21/21 mg-trimethoprim 160 mg tablet (Bactrim DS) amoxicillin 875 mg-potassium 1 tab PO BID 7 Days #14 tab 08/17/21 08/21/21 clavulanate 125 mg tablet sulfamethoxazole 800 1 tab PO BID 7 Days #14 tab 08/17/21 08/21/21 mg-trimethoprim 160 mg tablet (Bactrim DS) Previous Rx's Medication Instructions Recorded lidocaine 5 % topical patch 1 patch TOPICAL Q24H #4 patch 10/30/18 (Lidoderm) ammonium lactate 12 % lotion 1 applic TOPICAL DAILY #400 g 08/11/21 amoxicillin 875 mg-potassium 1 tab PO BID #14 tab 08/11/21 clavulanate 125 mg tablet ascorbic acid (vitamin C) 500 mg 500 mg PO BID #60 tab 08/11/21 tablet (Vitamin C) ferrous sulfate 325 mg (65 mg 325 mg PO BID #60 tab 08/11/21 iron) tablet gabapentin 300 mg capsule 900 mg PO TID #90 cap 08/11/21 lanolin alcohols-mineral 1 applic TOPICAL PRN PRN #454 g 08/11/21 oil-w.petrolatum-ceresin topical cream (Eucerin) morphine 30 mg tablet,extended 30 mg PO BID #20 tab 08/11/21 release (MS Contin) silver sulfadiazine 1 % topical 1 applic TOPICAL DAILY #85 g 08/11/21 cream (SSD) sulfamethoxazole 800 1 tab PO BID #14 tab 08/11/21 mg-trimethoprim 160 mg tablet amoxicillin 875 mg-potassium 1 tab PO BID 7 Days #14 tab 08/16/21 clavulanate 125 mg tablet sulfamethoxazole 800 1 tab PO BID 7 Days #14 tab 08/16/21 mg-trimethoprim 160 mg tablet (Bactrim DS) amoxicillin 875 mg-potassium 1 tab PO BID 7 Days #14 tab 08/17/21 clavulanate 125 mg tablet sulfamethoxazole 800 1 tab PO BID 7 Days #14 tab 08/17/21 mg-trimethoprim 160 mg tablet (Bactrim DS) Allergies Allergy/AdvReac Type Severity Reaction Status Date / Time venom-honey bee Allergy Severe signs of Unverified 08/21/21 12:45 stroke pregabalin [From Lyrica] Allergy Mild Unverified 08/21/21 12:45 varenicline tartrate AdvReac Unknown Nausea Unverified 08/21/21 12:45 [From Chantix] General Stated Complaint: GenMedical SCOT: 4 Review of Systems All systems reviewed & are unremarkable except as noted in HPI and below Constitutional Constitutional: Reports as per HPI, Denies chills and Denies fever(s) Eyes Eyes: Denies blurry vision ENT Ears, Nose, Mouth, and Throat: Denies dizziness, Denies sore throat and Denies throat swelling Cardiovascular Cardiovascular: Denies chest pain and Denies dyspnea Respiratory Respiratory: Denies cough and Denies dyspnea Gastrointestinal Gastrointestinal: Denies abdominal pain, Denies diarrhea and Denies vomiting Genitourinary Genitourinary: Denies hematuria and Denies dysuria Musculoskeletal Musculoskeletal: Reports back pain and Denies numbness Comments: b/l leg pain Integumentary/Breasts Skin/Breast: Denies lesions and Denies rash Neurologic Neurologic: Denies dizziness, Denies localized weakness and Denies numbness Allergic/Immunologic Allergic/Immunologic: Denies throat swelling PFSH All Active Problems (Updated 08/21/21 @ 14:46 by Jailyn Pedro DO) Alcohol intoxication (Acute) Acute exacerbation of chronic low back pain (Acute) Open leg wound (Acute) Acute exacerbation of chronic low back pain (Acute) Open leg wound (Acute) Chronic pain (Chronic) Generalized weakness (Acute) Bilateral leg weakness (Acute) Chronic wound of extremity (Acute) Bilateral leg weakness (Acute) Chronic back pain (Acute) Polymicrobial bacterial infection (Acute) Constipation (Chronic) MRSA cellulitis (Acute) Chronic anemia (Acute) Pressure ulcers of skin of multiple topographic sites (Acute) Chronic cutaneous venous stasis ulcer (Chronic) Chronic venous stasis dermatitis of both lower extremities (Acute) Polysubstance abuse (Acute) Discharge planning issues (Acute) GERD (gastroesophageal reflux disease) (Chronic) Alcoholic cirrhosis of liver (Chronic) Continuous chronic alcoholism (Acute 01/15/13) Medical History (Updated 08/21/21 @ 14:46 by Jailyn Pedro DO) Acute alcohol intoxication Alcohol dependence Anemia Arthritis Bilateral leg edema Chronic pain Cirrhosis of liver Diabetic peripheral neuropathy Encephalopathy, hepatic Hepatitis C Hyperlipidemia Knee pain, right TIA (transient ischemic attack) TIA (transient ischemic attack) Ulnar neuropathy Urinary retention Surgical History H/O cervical spine surgery Hx of total knee arthroplasty Social History Smoking/Tobacco Use Status: Current every day Tobacco Type: cigarettes and e- cigarettes Smoking risk assessment performed?: Yes Alcohol Intake: current Alcohol Intake frequency: 3 or more drinks per day A lcohol type: beer, wine and hard liquor Drug use: Occasionally Substance use type: marijuana Housing: apartment Number of Children: 3 What type of physical activity do you participate in: walking Do you feel safe at home: Yes Do you feel safe in your relationship?: Yes Exam Const General: disheveled Orientation: alert, awake and oriented x3 HENMT Head: normal to inspection Mouth: oral mucosae normal Eyes General: appearance normal, both eyes and all related structures Neck Neck: normal visual inspection Resp Effort & Inspection: normal respiratory effort and able to speak in complete sentences Cardio Rate: regular rate Skin General skin exam: no rashes or lesions noted Neuro General: patient alert, patient awake and patient oriented x3 Motor: muscle tone normal throughout Extrem Other: Open leg wounds noted to posterior lower legs. There is fibrous tissue noted on the Telfa dressings. Outer Juan wrap dressings appear clean dry and intact. Bilateral distal lower extremity pulses intact. Psych Appearance: grossly normal Affect: normal affect Course Vital Signs Vital signs: Vital Signs Temperature 98.2 F 08/21/21 12:40 Pulse 99 H 08/21/21 12:40 Respiratory Rate 16 08/21/21 12:40 Blood Pressure 144/82 H 08/21/21 12:40 Pulse Oximetry 100 08/21/21 12:40 Temperature 98.2 F 08/21/21 12:40 Temperature Source Skin 08/21/21 12:40 Pulse 99 H 08/21/21 12:40 Respiratory Rate 16 08/21/21 12:40 Respiratory Effort 08/21/21 12:40 Blood Pressure 144/82 H 08/21/21 12:40 Blood Pressure Position Sitting 08/21/21 12:40 Pulse Oximetry 100 08/21/21 12:40 Pain Level 9 08/21/21 12:40 Comment 08/21/21 12:40 PAWSS Have you Been Recently Intoxicated or Drunk Within the Last 30 days?: Yes Have you Ever Experienced Previous Episodes of Alcohol Withdrawal?: Yes Have you ever Experienced Withdrawal Seizures?: No Have you ever Experienced Delirium Tremens(DT)s?: Yes Have you ever undergone Alcohol Rehabilitation Treatment (i.e, inpt ot outp atient treatment programs)?: Yes Have you ever Experienced Blackouts?: No Have you ever Combined Alcohol with other Downers within the last 90 days?: No Have you ever Combined Alcohol with any other Substance of Abuse during the last 90 days?: No Result: 4
[2021-08-21 15:01] VITALS: RESP 16
== END 2021-08-21 15:02 | disposition home or self-care (01) ==
PROVIDERS: Emergency Provider Physician Assistant; PCP Family Medicine
DX: L97.828 Non-pressure chronic ulcer of other part of left lower leg with other specified severity (principal); L97.818 Non-pressure chronic ulcer of other part of right lower leg with other specified severity; R53.1 Weakness; G89.29 Other chronic pain; M54.9 Dorsalgia, unspecified
CPT/HCPCS: 99283

== ENCOUNTER 2021-08-28 18:21 | Emergency (ER) | payer MEDICAID, SELFPAY ==
[2021-08-28 18:12] VITALS: BP 115/74; PULSE 89; RESP 16; TEMP 36.9; O2SAT 96
[2021-08-28 18:35] VITALS: BP 115/74; PULSE 89; RESP 16; TEMP 36.9; O2SAT 96
--- NOTE | 2021-08-28 19:01 | NUR.NOTE ---
Nursing Note: Patient refusing assessments, interventions. Behavior is consistent with past visits. Patient appears and smells intoxicated. Patient states he is paralysed but is able to move all four extremities, bear weight, and ambulate. Patient fitted with a C-collar, but shortly after removed it himself. Patient continued to be belligerent and shouting demands and insults. Patent demanded to leave ER and is currently sitting on the sidewalk in a wheelchair. No unusual distress noted.
--- NOTE | 2021-08-28 23:14 | ED.GENADUL_ITS ---
Discharge Plan Disposition Patient Disposition: HOME Condition: Stable Discharge Details Clinical Impression: Chronic pain Primary Care Provider: Sushil Figueroa ED Provider: Pretty Young Home Meds and New Rx's Prescriptions: No Action aspirin [Aspir-81] 81 MG tablet,delayed release (DR/EC) 81 mg PO DAILY tamsulosin [Flomax] 0.4 mg capsule 0.8 mg PO DAILY spironolactone 50 mg tablet 50 mg PO DAILY duloxetine [Cymbalta] 30 mg capsule,delayed release(DR/EC) 60 mg PO DAILY trazodone 50 mg tablet 50 mg PO DAILY furosemide 20 mg tablet 40 mg PO BID epinephrine 0.3 MG/SYR auto-injector 0.3 mg IM DIRECTED PRN Label Comments: has never used 05/01/16 07/09/16- Pt states he had 2 epi pens a long time ago but doesnt know where they are atorvastatin [Lipitor] 40 MG tablet 40 mg PO QPM lactulose [Constulose] 10 GM/15 ML solution 45 gm PO TID Label Comments: Pt states hes supposed to take 45gm TID, but has not been taking d/t diarrhea lidocaine [Lidoderm] 1 PATCH patch 1 patch Topical Q24H Qty: 4 0RF pantoprazole [Protonix] 20 mg Tablet,Delayed Release (Dr/Ec) 20 mg PO DAILY polyethylene glycol 3350 [Miralax] 17 gram/dose powder 17 g PO DAILY PRN PRN Label Comments: Take 17 gram by mouth as directed as needed magnesium oxide 400 MG tablet 400 mg PO BID multivitamin 1 EACH capsule 1 ea PO DAILY thiamine mononitrate (vit B1) [Vitamin B-1 (mononitrate)] 100 MG tablet 100 mg PO DAILY ammonium lactate 12 % Lotion 1 applic topical DAILY Qty: 400 0RF amoxicillin-pot clavulanate 875-125 mg Tablet 1 tab PO BID Qty: 14 0RF ascorbic acid (vitamin C) [Vitamin C] 500 mg Tablet 500 mg PO BID Qty: 60 0RF Eucerin Cream 1 applic topical PRN PRNQty: 454 0RF ferrous sulfate 325 mg (65 mg iron) Tablet 325 mg PO BID Qty: 60 0RF gabapentin 300 mg Capsule 900 mg PO TID Qty: 90 0RF morphine [MS Contin] 30 mg Tablet Extended Release 30 mg PO BID Qty: 20 0RF silver sulfadiazine [SSD] 1 % Cream 1 applic topical DAILY Qty: 85 0RF sulfamethoxazole-trimethoprim 800-160 mg Tablet 1 tab PO BID Qty: 14 0RF Medical Decision Making Patient is talking comfortably in room, when I asked the patient regarding why he was presenting to our hospital for another assessment when he has been previously evaluated at [facility] have not had neurosurgical consultation performed via phone at that facility and he became very agitated, he told me to get the fuck out of the room Patient was escorted from the hospital as he has a no trespassing order and is verball abusive ambulatory with steady gait, moving all extremities and speaking in complete sentences I personally spoke with the physician who assessed the patient at [facility] and he was discharged and not AGAINST MEDICAL ADVICE, there is no addit ional care necessary for this physician at [facility] as and he had appropriate neurosurgical consultation at [facility], I will not call [facility] again and I do not feel comfortable with this patient remaining in the emergency department secondary to his agitation and history of combative I do not feel comfortable caring for this patient and he will be discharged from this facility and encouraged to follow-up with his with his PCP in [facility] via the information and care provided [facility] Medical Records Medical records reviewed: Yes I reviewed the patient's medical records. Lab Data Lab results reviewed: Yes I reviewed the patient's lab results. HPI HPI Narrative: This 61-year-old male presents from EMS for neck and back pain. He was reportedly seen at [facility] just prior to assessment here and actually had a CT scan of his neck secondary to a fall and persistent pain. He denies actually injuring his neck during the fall. He states that his pain is everywhere . I did specifically ask him why he chose to be brought by ambulance to our facility and he states that I did not want to come here, I wanted to go to [facility] EMS refused to take me. Sent me to [facility] . I spoke with the physician at [facility] who was involved in his care and states that he actually had a long conversation with [facility] as patient has a C1 fracture which is age indeterminant and it was recommended that patient have AP and lateral follow-up and that this is not an acute injury and there was no need for additional intervention at this time. He also states he made the neurosurgeon aware regarding leotard red and that there is no additional intervention needed at this time and that patient has been discharged from [facility] but was able to follow-up as needed. Patient denies any sensation changes distally. He did tell EMS that he was not able to ambulate, however he ambulated successfully into the ambulance and per triage nurse was moving extremities without any sort of difficulty and walking around the room without any issue. Patient denies any specific complaints aside from generalized pain at time of my reassessment. Related Data Home Medications Medication Instructions Recorded Confirmed epinephrine 0.3 mg/0.3 mL 0.3 mg IM DIRECTED PRN 01/15/13 08/21/21 injection, auto-injector atorvastatin 40 mg tablet (Lipitor) 40 mg PO QPM 08/19/16 08/21/21 lactulose 10 gram/15 mL oral 45 gm PO TID 08/19/16 08/21/21 solution (Constulose) magnesium oxide 400 mg (241.3 mg 400 mg PO BID 11/19/16 08/21/21 magnesium) tablet multivitamin 1 ea PO DAILY 11/19/16 08/21/21 thiamine mononitrate (vit B1) 100 100 mg PO DAILY 11/19/16 08/21/21 mg tablet (Vitamin B-1 (mononitrate)) aspirin 81 mg tablet,delayed 81 mg PO DAILY 03/15/17 08/21/21 release (Aspir-) lidocaine 5 % topical patch 1 patch topical Q24H #4 patches 10/30/18 08/21/21 (Lidoderm) pantoprazole 20 mg tablet,delayed 20 mg PO DAILY 11/01/19 08/21/21 release (Protonix) duloxetine 30 mg capsule,delayed 60 mg PO DAILY 07/18/21 08/21/21 release (Cymbalta) furosemide 20 mg tablet 40 mg PO BID 07/18/21 08/21/21 spironolactone 50 mg tablet 50 mg PO DAILY 07/18/21 08/21/21 tamsulosin 0.4 mg capsule (Flomax) 0.8 mg PO DAILY 07/18/21 08/21/21 trazodone 50 mg tablet 50 mg PO DAILY 07/18/21 08/21/21 polyethylene glycol 3350 17 17 g PO DAILY PRN PRN 07/28/21 08/21/21 gram/dose oral powder (Miralax) ammonium lactate 12 % lotion 1 applic topical DAILY #400 grams 08/11/21 08/21/21 amoxicillin 875 mg-potassium 1 tab PO BID #14 tabs 08/11/21 08/21/21 clavulanate 125 mg tablet ascorbic acid (vitamin C) 500 mg 500 mg PO BID #60 tabs 08/11/21 08/21/21 tablet (Vitamin C) ferrous sulfate 325 mg (65 mg 325 mg PO BID #60 tabs 08/11/21 08/21/21 iron) tablet gabapentin 300 mg capsule 900 mg PO TID #90 caps 08/11/21 08/21/21 lanolin alcohols-mineral 1 applic topical PRN PRN #454 grams 08/11/21 08/21/21 oil-w.petrolatum-ceresin topical cream (Eucerin topical cream) morphine 30 mg tablet,extended 30 mg PO BID #20 tabs 08/11/21 08/21/21 release (MS Contin) silver sulfadiazine 1 % topical 1 applic topical DAILY #85 grams 08/11/21 08/21/21 cream (SSD) sulfamethoxazole 800 1 tab PO BID #14 tabs 08/11/21 08/21/21 mg-trimethoprim 160 mg tablet Previous Rx's Medication Instructions Recorded lidocaine 5 % topical patch 1 patch topical Q24H #4 patches 10/30/18 (Lidoderm) ammonium lactate 12 % lotion 1 applic topical DAILY #400 grams 08/11/21 amoxicillin 875 mg-potassium 1 tab PO BID #14 tabs 08/11/21 clavulanate 125 mg tablet ascorbic acid (vitamin C) 500 mg 500 mg PO BID #60 tabs 08/11/21 tablet (Vitamin C) ferrous sulfate 325 mg (65 mg 325 mg PO BID #60 tabs 08/11/21 iron) tablet gabapentin 300 mg capsule 900 mg PO TID #90 caps 08/11/21 lanolin alcohols-mineral 1 applic topical PRN PRN #454 grams 08/11/21 oil-w.petrolatum-ceresin topical cream (Eucerin topical cream) morphine 30 mg tablet,extended 30 mg PO BID #20 tabs 08/11/21 release (MS Contin) silver sulfadiazine 1 % topical 1 applic topical DAILY #85 grams 08/11/21 cream (SSD) sulfamethoxazole 800 1 tab PO BID #14 tabs 08/11/21 mg-trimethoprim 160 mg tablet Allergies Allergy/AdvReac Type Severity Reaction Status Date / Time venom-honey bee Allergy Severe signs of Unverified 08/21/21 12:45 stroke pregabalin [From Lyrica] Allergy Mild Unverified 08/21/21 12:45 varenicline tartrate AdvReac Unknown Nausea Unverified 08/21/21 12:45 [From Chantix] General Stated Complaint: Nk/Back Pain SCOT: 3 Review of Systems All systems reviewed & are unremarkable except as noted in HPI and below PFSH All Active Problems (Updated 08/28/21 @ 23:24 by RANDY Whyte) Alcohol intoxication (Acute) Acute exacerbation of chronic low back pain (Acute) Open leg wound (Acute) Acute exacerbation of chronic low back pain (Acute) Open leg wound (Acute) Chronic pain (Chronic) Generalized weakness (Acute) Bilateral leg weakness (Acute) Chronic wound of extremity (Acute) Bilateral leg weakness (Acute) Chronic back pain (Acute) Polymicrobial bacterial infection (Acute) Constipation (Chronic) MRSA cellulitis (Acute) Chronic anemia (Acute) Pressure ulcers of skin of multiple topographic sites (Acute) Chronic cutaneous venous stasis ulcer (Chronic) Chronic venous stasis dermatitis of both lower extremities (Acute) Polysubstance abuse (Acute) Discharge planning issues (Acute) GERD (gastroesophageal reflux disease) (Chronic) Alcoholic cirrhosis of liver (Chronic) Continuous chronic alcoholism (Acute 01/15/13) Medical History (Updated 08/28/21 @ 23:24 by RANDY Whyte) Acute alcohol intoxication Alcohol dependence Anemia Arthritis Bilateral leg edema Chronic pain Cirrhosis of liver Diabetic peripheral neuropathy Encephalopathy, hepatic Hepatitis C Hyperlipidemia Knee pain, right TIA (transient ischemic attack) TIA (transient ischemic attack) Ulnar neuropathy Urinary retention Surgical History H/O cervical spine surgery Hx of total knee arthroplasty Social History Smoking/Tobacco Use Status: Current every day Tobacco Type: cigarettes and e- cigarettes Smoking risk assessment performed?: Yes Alcohol Intake: current Alcohol Intake frequency: 3 or more drinks per day Alcohol type: beer, wine and hard liquor Drug use: Occasionally Substance use type: marijuana Housing: apartment Number of Children: 3 What type of physical activity do you participate in: walking Do you feel safe at home: Yes Do you feel safe in your relationship?: Yes Exam Const General: no acute distress Course Vital Signs Vital signs: Vital Signs Temperature 36.9 C 08/28/21 18:12 Pulse 89 08/28/21 18:12 Respiratory Rate 16 08/28/21 18:12 Blood Pressure 115/74 08/28/21 18:12 Pulse Oximetry 96 08/28/21 18:12 Temperature 36.9 C 08/28/21 18:35 Temperature Source Oral 08/28/21 18:35 Pulse 89 08/28/21 18:35 Respiratory Rate 16 08/28/21 18:35 Blood Pressure 115/74 08/28/21 18:35 Pulse Oximetry 96 08/28/21 18:35 Oxygen Delivery Method Room Air 08/28/21 18:35 Oxygen Flow Rate 0 08/28/21 18:35 Pain Level 10 08/28/21 18:12 Comment will not state weight or height 08/28/21 18:12
== END 2021-08-28 19:01 | disposition home or self-care (01) ==
PROVIDERS: Emergency Provider Physician Assistant; PCP Family Medicine
DX: M54.2 Cervicalgia (principal); G89.29 Other chronic pain; R45.4 Irritability and anger
CPT/HCPCS: 99283; 99281

== ENCOUNTER 2021-09-05 19:01 | Emergency (ER) | payer MEDICAID, SELFPAY ==
[2021-09-05 20:04] VITALS: BP 121/82; PULSE 91; RESP 20; TEMP 36.3; O2SAT 97
[2021-09-05 20:52] VITALS: BP 106/69; PULSE 95; RESP 14; TEMP 36.2; O2SAT 98
--- NOTE | 2021-09-05 21:03 | ED.GENADUL_ITS ---
Discharge Plan Disposition Patient Disposition: HOME Condition: Stable Discharge Details Clinical Impression: Chronic leg pain Primary Care Provider: Sushil Figueroa ED Provider: Michael Montoya Home Meds and New Rx's Prescriptions: No Action aspirin [Aspir-81] 81 MG tablet,delayed release (DR/EC) 81 mg PO DAILY tamsulosin [Flomax] 0.4 mg capsule 0.8 mg PO DAILY spironolactone 50 mg tablet 50 mg PO DAILY duloxetine [Cymbalta] 30 mg capsule,delayed release(DR/EC) 60 mg PO DAILY trazodone 50 mg tablet 50 mg PO DAILY furosemide 20 mg tablet 40 mg PO BID epinephrine 0.3 MG/SYR auto-injector 0.3 mg IM DIRECTED PRN Label Comments: has never used 05/01/16 07/09/16- Pt states he had 2 epi pens a long time ago but doesnt know where they are atorvastatin [Lipitor] 40 MG tablet 40 mg PO QPM lactulose [Constulose] 10 GM/15 ML solution 45 gm PO TID Label Comments: Pt states hes supposed to take 45gm TID, but has not been taking d/t diarrhea lidocaine [Lidoderm] 1 PATCH patch 1 patch Topical Q24H Qty: 4 0RF pantoprazole [Protonix] 20 mg Tablet,Delayed Release (Dr/Ec) 20 mg PO DAILY polyethylene glycol 3350 [Miralax] 17 gram/dose powder 17 g PO DAILY PRN PRN Label Comments: Take 17 gram by mouth as directed as needed magnesium oxide 400 MG tablet 400 mg PO BID multivitamin 1 EACH capsule 1 ea PO DAILY thiamine mononitrate (vit B1) [Vitamin B-1 (mononitrate)] 100 MG tablet 100 mg PO DAILY ammonium lactate 12 % Lotion 1 applic topical DAILY Qty: 400 0RF amoxicillin-pot clavulanate 875-125 mg Tablet 1 tab PO BID Qty: 14 0RF ascorbic acid (vitamin C) [Vitamin C] 500 mg Tablet 500 mg PO BID Qty: 60 0RF Eucerin Cream 1 applic topical PRN PRNQty: 454 0RF ferrous sulfate 325 mg (65 mg iron) Tablet 325 mg PO BID Qty: 60 0RF gabapentin 300 mg Capsule 900 mg PO TID Qty: 90 0RF morphine [MS Contin] 30 mg Tablet Extended Release 30 mg PO BID Qty: 20 0RF silver sulfadiazine [SSD] 1 % Cream 1 applic topical DAILY Qty: 85 0RF sulfamethoxazole-trimethoprim 800-160 mg Tablet 1 tab PO BID Qty: 14 0RF Discharge Instructions Instructions: Leg Pain (ED) Additional Instructions: Medication reconciliation could not be performed today. Please take your medication as prescribed by your doctor and be sure to review your medication list with your doctor at next appointment. Please contact your primary care physician to arrange follow-up. Return to the ER immediately for any worsening or new concerning symptoms. Referrals: Sushil Figueroa [Primary Care Provider] - Discharge Data Discharge Date/Time-TO BE ENTERED AT DEPARTURE: 09/05/21 21:11 Medical Decision Making 61-year-old male, well-known to the emergency department, here with chronic leg pain, requesting opioid pain medication. A medical screening exam was performed in no emergent medical condition was identified. I explained to the patient that I could not provide opioid treatment for his pain today and offered acetaminophen which he initially declined and then accepted. Patient will be discharged to follow-up with his primary care physician. He was encouraged to return immediately should any worsening or new concerning symptoms. HPI General Date/Time Provider Initiated Documentation: 09/05/21 21:03 . Limitations to Documentation: no limitations . Information obtained by: patient . HPI Narrative: 61-year-old male with multiple medical problems including chronic back pain frequent ED utilization, here with chief complaint of leg pain. Patient notes bilateral leg pain that is ongoing for months. Patient denies associated numbness or tingling. Pain is moderate and constant. Patient is requesting opioid pain medication. Related Data Home Medications Medication Instructions Recorded Confirmed epinephrine 0.3 mg/0.3 mL 0.3 mg IM DIRECTED PRN 01/15/13 08/21/21 injection, auto-injector atorvastatin 40 mg tablet (Lipitor) 40 mg PO QPM 08/19/16 08/21/21 lactulose 10 gram/15 mL oral 45 gm PO TID 08/19/16 08/21/21 solution (Constulose) magnesium oxide 400 mg (241.3 mg 400 mg PO BID 11/19/16 08/21/21 magnesium) tablet multivitamin 1 ea PO DAILY 11/19/16 08/21/21 thiamine mononitrate (vit B1) 100 100 mg PO DAILY 11/19/16 08/21/21 mg tablet (Vitamin B-1 (mononitrate)) aspirin 81 mg tablet,delayed 81 mg PO DAILY 03/15/17 08/21/21 release (Aspir-) lidocaine 5 % topical patch 1 patch topical Q24H #4 patches 10/30/18 08/21/21 (Lidoderm) pantoprazole 20 mg tablet,delayed 20 mg PO DAILY 11/01/19 08/21/21 release (Protonix) duloxetine 30 mg capsule,delayed 60 mg PO DAILY 07/18/21 08/21/21 release (Cymbalta) furosemide 20 mg tablet 40 mg PO BID 07/18/21 08/21/21 spironolactone 50 mg tablet 50 mg PO DAILY 07/18/21 08/21/21 tamsulosin 0.4 mg capsule (Flomax) 0.8 mg PO DAILY 07/18/21 08/21/21 trazodone 50 mg tablet 50 mg PO DAILY 07/18/21 08/21/21 polyethylene glycol 3350 17 17 g PO DAILY PRN PRN 07/28/21 08/21/21 gram/dose oral powder (Miralax) ammonium lactate 12 % lotion 1 applic topical DAILY #400 grams 08/11/21 08/21/21 amoxicillin 875 mg-potassium 1 tab PO BID #14 tabs 08/11/21 08/21/21 clavulanate 125 mg tablet ascorbic acid (vitamin C) 500 mg 500 mg PO BID #60 tabs 08/11/21 08/21/21 tablet (Vitamin C) ferrous sulfate 325 mg (65 mg 325 mg PO BID #60 tabs 08/11/21 08/21/21 iron) tablet gabapentin 300 mg capsule 900 mg PO TID #90 caps 08/11/21 08/21/21 lanolin alcohols-mineral 1 applic topical PRN PRN #454 grams 08/11/21 08/21/21 oil-w.petrolatum-ceresin topical cream (Eucerin topical cream) morphine 30 mg tablet,extended 30 mg PO BID #20 tabs 08/11/21 08/21/21 release (MS Contin) silver sulfadiazine 1 % topical 1 applic topical DAILY #85 grams 08/11/21 08/21/21 cream (SSD) sulfamethoxazole 800 1 tab PO BID #14 tabs 08/11/21 08/21/21 mg-trimethoprim 160 mg tablet Previous Rx's Medication Instructions Recorded lidocaine 5 % topical patch 1 patch topical Q24H #4 patches 10/30/18 (Lidoderm) ammonium lactate 12 % lotion 1 applic topical DAILY #400 grams 08/11/21 amoxicillin 875 mg-potassium 1 tab PO BID #14 tabs 08/11/21 clavulanate 125 mg tablet ascorbic acid (vitamin C) 500 mg 500 mg PO BID #60 tabs 08/11/21 tablet (Vitamin C) ferrous sulfate 325 mg (65 mg 325 mg PO BID #60 tabs 08/11/21 iron) tablet gabapentin 300 mg capsule 900 mg PO TID #90 caps 08/11/21 lanolin alcohols-mineral 1 applic topical PRN PRN #454 grams 08/11/21 oil-w.petrolatum-ceresin topical cream (Eucerin topical cream) morphine 30 mg tablet,extended 30 mg PO BID #20 tabs 08/11/21 release (MS Contin) silver sulfadiazine 1 % topical 1 applic topical DAILY #85 grams 08/11/21 cream (SSD) sulfamethoxazole 800 1 tab PO BID #14 tabs 08/11/21 mg-trimethoprim 160 mg tablet Allergies Allergy/AdvReac Type Severity Reaction Status Date / Time venom-honey bee Allergy Severe signs of Unverified 08/21/21 12:45 stroke pregabalin [From Lyrica] Allergy Mild Unverified 08/21/21 12:45 varenicline tartrate AdvReac Unknown Nausea Unverified 08/21/21 12:45 [From Chantix] General Stated Complaint: Nk/Back Pain SCOT: 4 Review of Systems Musculoskeletal Musculoskeletal: Reports as per HPI Neurologic Neurologic: Reports as per HPI PFS All Active Problems (Updated 09/05/21 @ 21:04 by Michael Montoya MD) Alcohol intoxication (Acute) Acute exacerbation of chronic low back pain (Acute) Open leg wound (Acute) Acute exacerbation of chronic low back pain (Acute) Open leg wound (Acute) Chronic pain (Chronic) Generalized weakness (Acute) Bilateral leg weakness (Acute) Chronic wound of extremity (Acute) Bilateral leg weakness (Acute) Chronic back pain (Acute) Chronic leg pain (Acute) Polymicrobial bacterial infection (Acute) Constipation (Chronic) MRSA cellulitis (Acute) Chronic anemia (Acute) Pressure ulcers of skin of multiple topographic sites (Acute) Chronic cutaneous venous stasis ulcer (Chronic) Chronic venous stasis dermatitis of both lower extremities (Acute) Polysubstance abuse (Acute) Discharge planning issues (Acute) GERD (gastroesophageal reflux disease) (Chronic) Alcoholic cirrhosis of liver (Chronic) Continuous chronic alcoholism (Acute 01/15/13) Medical History (Updated 09/05/21 @ 21:04 by Michael Montoya MD) Acute alcohol intoxication Alcohol dependence Anemia Arthritis Bilateral leg edema Chronic pain Cirrhosis of liver Diabetic peripheral neuropathy Encephalopathy, hepatic Hepatitis C Hyperlipidemia Knee pain, right TIA (transient ischemic attack) TIA (transient ischemic attack) Ulnar neuropathy Urinary retention Surgical History H/O cervical spine surgery Hx of total knee arthroplasty Social History Smoking/Tobacco Use Status: Current every day Tobacco Type: cigarettes and e- cigarettes Smoking risk assessment performed?: Yes Alcohol Intake: current Alcohol Intake frequency: 3 or more drinks per day Alcohol type: beer, wine and hard liquor Drug use: Occasionally Substance use type: marijuana Housing: apartment Number of Children: 3 What type of physical activity do you participate in: walking Do you feel safe at home: Yes Do you feel safe in your relationship?: Yes Exam Extrem General: capillary refill normal and normal exam except as noted Right lower extremity: normal capillary refill and edema (mild) Left lower extremity: normal capillary refill and edema (mild) Other: no erythema Course Vital Signs Vital signs: Vital Signs Temperature 36.3 C L 09/05/21 20:04 Pulse 91 H 09/05/21 20:04 Respiratory Rate 20 09/05/21 20:04 Blood Pressure 121/82 09/05/21 20:04 Pulse Oximetry 97 09/05/21 20:04 Temperature 36.2 C L 09/05/21 20:52 Temperature Source Tympanic 09/05/21 20:52 Pulse 95 H 09/05/21 20:52 Respiratory Rate 14 09/05/21 20:52 Respiratory Effort Non-Labored 09/05/21 20:46 Blood Pressure 106/69 09/05/21 20:52 Blood Pressure Position Sitting 09/05/21 20:04 Pulse Oximetry 98 09/05/21 20:52 Oxygen Delivery Method Room Air 09/05/21 20:52 Oxygen Flow Rate 0 09/05/21 20:52 Pain Level 20 09/05/21 20:04
[2021-09-05] MEDS: Acetaminophen 325 MG TAB PO (21:10)
== END 2021-09-05 21:11 | disposition home or self-care (01) ==
PROVIDERS: Emergency Provider Student in an Organized Health Care Education/Training Program; PCP Family Medicine
DX: M79.605 Pain in left leg (principal); M79.604 Pain in right leg; M54.9 Dorsalgia, unspecified; G89.29 Other chronic pain
CPT/HCPCS: 99282

== ENCOUNTER 2021-09-09 23:08 | Emergency (ER) | payer MEDICAID, SELFPAY ==
--- NOTE | 2021-09-09 23:00 | DI.CT_ITS ---
Exam(s) CT HEAD CERVICAL SPINE WO EXAM: CT HEAD CERVICAL SPINE WO CLINICAL HISTORY: fall, hit head/back, whole body numb, spine hurt. TECHNIQUE: Imaging Protocol: Axial computed tomography images with coronal and sagittal reformatted images were created and reviewed COMPARISON: CT CT HEAD CERVICAL SPINE WO from 12/24/2019 FINDINGS: The examination is limited due to patient motion artifact. CT Head: Ventricles and Extra axial spaces: Normal in size and morphology for the patient's age. Hemorrhage: None. Cerebral parenchyma: No acute territorial infarct. Midline shift: None. Brainstem/Cerebellum: Normal. Calvarium: Normal. Visualized Paranasal sinuses/Mastoids: Clear. Soft Tissues: Unremarkable. CT Cervical Spine: Bones: Degenerative changes are seen in the cervical spine. The patient is status post posterior cer vical fixation from C2 through T2. There is a new fracture seen through the right C1 lamina and the r ight lateral mass of C2 around the pedicle screw. It does appear to extend into the C1-C2 right chappell sverse foramina. This was not present on the prior examination. Soft Tissues: Unremarkable. Lung Apices: Clear. IMPRESSION: 1. No acute intracranial process. 2. Acute fractures through the C1 and C2 vertebra as described above. RADIATION DOSE DELIVERED: 1,397.77mGy.cm Total DLP DATA REPOSITORY: All CT scans at this facility are submitted to the National Radiology Data Registry (NRDR) Dose Index Registry (DIR) with the [employer] ([employer]). RADIATION OPTIMIZATION: All CT scans at this facility use at least one of these dose optimization te chniques: automated exposure control; mA and/or kV adjustment per patient size (includes targeted exa ms where dose is matched to clinical indication); or iterative reconstruction.
--- NOTE | 2021-09-09 23:00 | DI.CT_ITS ---
Exam(s) CT THORACIC LUMBAR SPINE WO EXAM: CT THORACIC LUMBAR SPINE WO CLINICAL HISTORY: fall, hit head/back, whole body numb, spine hurt. TECHNIQUE: Imaging Protocol: Axial computed tomography images with coronal and sagittal reformatted images were created and reviewed. COMPARISON: CT CT THORACIC LUMBAR SPINE WO from 08/16/2021 FINDINGS: Thoracic spine: Bones: No fractures or dislocations are seen. The alignment of the spine is normal including the cerv icothoracic junction. Postsurgical changes are seen in the lower cervical and upper thoracic spine. There are old bilateral rib fracture deformities. Soft tissues: The soft tissues of the chest are unremarkable. No large disk herniations are identifie d. Lumbar spine: Bones: No fractures or dislocations are seen. Moderately severe degenerative changes are present thr oughout the lumbar spine with joint space narrowing, vacuum discs, endplate osteophytes and facet art hropathy. There is irregularity of the endplates at the L2-3 and L3-L4 disc levels. This may be chr onic. If there is concern for infection MRI may be obtained. The alignment of the spine is normal i ncluding the thoracolumbar junction. Soft tissues: The soft tissues of the visualized abdomen and chest are unremarkable. No large disk he rniations are identified. IMPRESSION: No acute fracture or subluxation is seen in the thoracic or lumbar spine. RADIATION DOSE DELIVERED: 2,136.12mGy.cm Total DLP DATA REPOSITORY: All CT scans at this facility are submitted to the National Radiology Data Registry (NRDR) Dose Index Registry (DIR) with the [employer] (A[employer]). RADIATION OPTIMIZATION: All CT scans at this facility use at least one of these dose optimization te chniques: automated exposure control; mA and/or kV adjustment per patient size (includes targeted exa ms where dose is matched to clinical indication); or iterative reconstruction.
[2021-09-09 23:12] VITALS: BP 147/83; PULSE 83; RESP 18; TEMP 36.9; O2SAT 99
[2021-09-09] MEDS: HYDROcodone 5/Acetaminophen 325 TAB PO (23:22)
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
--- NOTE | 2021-09-10 00:43 | DI.VRAD_ITS ---
PROCEDURE INFORMATION: Exam: CT Head Without Contrast Exam date and time: 09/09/2021 11:49 PM Age: 61 years old Clinical indication: Other: Fall, hit head/back, whole body numb, spine hurt; Prior surgery; Surgery date: 6+ months TECHNIQUE: Imaging protocol: Computed tomography of the head without contrast. Radiation optimization: All CT scans at this facility use at least one of these dose optimization techniques: automated exposure control; mA and/or kV adjustment per patient size (includes targeted exams where dose is matched to clinical indication); or iterative reconstruction. Other contrast: fall, hit head/back, whole body numb, spine hurt; COMPARISON: CT HEAD CERVICAL SPINE WO 12/24/2019 7:42 PM FINDINGS: Brain: Generalized atrophy and chronic white matter ischemic changes. There is no mass, acute hemorrhage or acute infarct. Cerebral ventricles: No ventriculomegaly. Paranasal sinuses: Visualized sinuses are unremarkable. No fluid levels. Mastoid air cells: Visualized mastoid air cells are well aerated. Bones/joints: Unremarkable. No acute fracture. Soft tissues: Unremarkable. IMPRESSION: No acute intracranial abnormality. PROCEDURE INFORMATION: Exam: CT Cervical Spine Without Contrast Exam date and time: 09/09/2021 11:49 PM Age: 61 years old Clinical indication: Other: Fall, hit head/back, whole body numb, spine hurt; Prior surgery; Surgery date: 6+ months TECHNIQUE: Imaging protocol: Computed tomography images of the cervical spine without contrast. Radiation optimization: All CT scans at this facility use at least one of these dose optimization techniques: automated exposure control; mA and/or kV adjustment per patient size (includes targeted exams where dose is matched to clinical indication); or iterative reconstruction. Other contrast: fall, hit head/back, whole body numb, spine hurt; COMPARISON: CT HEAD CERVICAL SPINE WO 12/24/2019 7:42 PM FINDINGS: Bones/joints: Previous posterior cervical fixation from C2 through T2. There is normal alignment. There is an acute fracture through the right C1 lamina and right lateral mass at C2 surrounding the right pedicle screw, and extending into the C1 and C2 right transverse foramina. This is new since the prior exam of 12/24/2019. Cervical alignment is stable however there is moderately severe narrowing of the canal at the C1-C2 level. Discs/Spinal canal/Neural foramina: See Bones/joints finding. Lungs: Lung apices are normal. Soft tissues: Unremarkable. IMPRESSION: Acute fractures of the C1 and C2 vertebrae as detailed. Dictated and Authenticated by: Khadijah Mario MD. Ordering:WILDER Mcarthur MD
--- NOTE | 2021-09-10 00:48 | DI.VRAD_ITS ---
PROCEDURE INFORMATION: Exam: CT Thoracic Spine Without Contrast Exam date and time: 09/09/2021 11:54 PM Age: 61 years old Clinical indication: Other: Fall, hit head/back, whole body numb, spine hurt TECHNIQUE: Imaging protocol: Computed tomography images of the thoracic spine without contrast. Radiation optimization: All CT scans at this facility use at least one of these dose optimization techniques: automated exposure control; mA and/or kV adjustment per patient size (includes targeted exams where dose is matched to clinical indication); or iterative reconstruction. COMPARISON: CT THORACIC LUMBAR SPINE WO 08/16/2021 11:24 AM FINDINGS: Vertebrae: No acute fracture. Normal alignment. Changes of posterior fusion are noted within the cervical spine through the T2 level. Discs/Spinal canal/Neural foramina: No significant disc protrusion. No severe spinal canal stenosis. No significant neural foraminal narrowing. Soft tissues: Unremarkable. IMPRESSION: No acute traumatic thoracic spine injury. PROCEDURE INFORMATION: Exam: CT Lumbar Spine Without Contrast Exam date and time: 09/09/2021 11:54 PM Age: 61 years old Clinical indication: Other: Fall, hit head/back, whole body numb, spine hurt TECHNIQUE: Imaging protocol: Computed tomography images of the lumbar spine without contrast. Radiation optimization: All CT scans at this facility use at least one of these dose optimization techniques: automated exposure control; mA and/or kV adjustment per patient size (includes targeted exams where dose is matched to clinical indication); or iterative reconstruction. COMPARISON: CT THORACIC LUMBAR SPINE WO 08/16/2021 11:24 AM FINDINGS: Vertebrae: No acute fracture. Minor dextroscoliosis. Multilevel hypertrophic facet arthropathy. Discs/Spinal canal/Neural foramina: Intervertebral disc space narrowing with vacuum disc phenomenon L2-3 through L4-5. No significant disc protrusion. No severe spinal canal stenosis. No significant neural foraminal narrowing. Soft tissues: The bladder is moderately distended. The prostate gland is enlarged. IMPRESSION: No acute traumatic lumbar spine injury. Multilevel degenerative changes. Dictated and Authenticated by: Vahe Gutierrez MD. Ordering:WILDER Mcarthur MD
[2021-09-10] MEDS: HYDROcodone 5/Acetaminophen 325 TAB PO (01:04)
[2021-09-10 01:07] VITALS: BP 165/103; PULSE 88; RESP 18; O2SAT 100
--- NOTE | 2021-09-10 10:00 | PDOC.ERCMACT ---
- If Service Date Differs Date of service: 09/10/21 Time of Service: 10:00 Care Management Activity Note Jackson presents in the ED for chronic back pain. At the request of ED provider, CM coordinates a referral to [facility] to assist Jackson in obtaining a follow up appointment.
== END 2021-09-10 01:44 | disposition home or self-care (01) ==
PROVIDERS: Emergency Provider Student in an Organized Health Care Education/Training Program; PCP Family Medicine
DX: M54.2 Cervicalgia (principal); G89.29 Other chronic pain; M54.9 Dorsalgia, unspecified; S09.8XXA Other specified injuries of head, initial encounter; W18.39XA Other fall on same level, initial encounter
CPT/HCPCS: 99284; 70450; 72125; 72128; 72131

== ENCOUNTER 2021-09-12 04:26 | Emergency (ER) | payer MEDICAID, SELFPAY ==
[2021-09-12 04:27] VITALS: BP 110/76; PULSE 82; RESP 18; TEMP 37.5; O2SAT 98
--- NOTE | 2021-09-12 04:48 | ED.GENADUL_ITS ---
Discharge Plan Disposition Patient Disposition: HOME Condition: Stable Discharge Details Clinical Impression: Numbness, Generalized weakness Primary Care Provider: Sushil Figueroa ED Provider: Michael Montoya Home Meds and New Rx's Prescriptions: Continued aspirin [Aspir-81] 81 MG tablet,delayed release (DR/EC) 81 mg PO DAILY tamsulosin [Flomax] 0.4 mg capsule 0.8 mg PO DAILY spironolactone 50 mg tablet 50 mg PO DAILY duloxetine [Cymbalta] 30 mg capsule,delayed release(DR/EC) 60 mg PO DAILY trazodone 50 mg tablet 50 mg PO DAILY furosemide 20 mg tablet 40 mg PO BID epinephrine 0.3 MG/SYR auto-injector 0.3 mg IM DIRECTED PRN Label Comments: has never used 05/01/16 07/09/16- Pt states he had 2 epi pens a long time ago but doesnt know where they are atorvastatin [Lipitor] 40 MG tablet 40 mg PO QPM lactulose [Constulose] 10 GM/15 ML solution 45 gm PO TID Label Comments: Pt states hes supposed to take 45gm TID, but has not been taking d/t diarrhea lidocaine [Lidoderm] 1 PATCH patch 1 patch Topical Q24H Qty: 4 0RF pantoprazole [Protonix] 20 mg Tablet,Delayed Release (Dr/Ec) 20 mg PO DAILY polyethylene glycol 3350 [Miralax] 17 gram/dose powder 17 g PO DAILY PRN PRN Label Comments: Take 17 gram by mouth as directed as needed magnesium oxide 400 MG tablet 400 mg PO BID multivitamin 1 EACH capsule 1 ea PO DAILY thiamine mononitrate (vit B1) [Vitamin B-1 (mononitrate)] 100 MG tablet 100 mg PO DAILY ammonium lactate 12 % Lotion 1 applic topical DAILY Qty: 400 0RF amoxicillin-pot clavulanate 875-125 mg Tablet 1 tab PO BID Qty: 14 0RF ascorbic acid (vitamin C) [Vitamin C] 500 mg Tablet 500 mg PO BID Qty: 60 0RF Eucerin Cream 1 applic topical PRN PRNQty: 454 0RF ferrous sulfate 325 mg (65 mg iron) Tablet 325 mg PO BID Qty: 60 0RF gabapentin 300 mg Capsule 900 mg PO TID Qty: 90 0RF morphine [MS Contin] 30 mg Tablet Extended Release 30 mg PO BID Qty: 20 0RF silver sulfadiazine [SSD] 1 % Cream 1 applic topical DAILY Qty: 85 0RF sulfamethoxazole-trimethoprim 800-160 mg Tablet 1 tab PO BID Qty: 14 0RF Discharge Instructions Additional Instructions: Please follow-up with spinal surgery at [facility] as discussed at your last emergency department visit regarding cervical spine fractures. Please contact your primary care physician to arrange follow-up. Return to the ER immediately for any worsening or new concerning symptoms. Referrals: Sushil Figueroa [Primary Care Provider] - Medical Decision Making 500 --61-year-old male with chronic lower extremity weakness, here with weakness of his legs. Patient does not participate in exam and is verbally abusive to staff and myself. He notes he is unable to move his legs and then is observed moving his legs. Patient notes full body numbness but does have intact sensation throughout. Patient was observed standing and transitioning from bed to wheelchair. A medical screening exam was performed. No acute medical condition identified. Of note, patient was seen here in the emergency department 2 nights ago and was found to have old C1 and C2 fracture. Spinal surgery at [facility] was consulted and reviewed images and noted chronic stable fractures. Plan will be for discharge with outpatient follow-up with his primary care physician as well as with spinal surgery at [facility]. HPI General Mode of arrival: EMS . Limitations to Documentation: other (patient not forthcoming) . Information obtained by: patient and EMS . HPI Narrative: 71-year-old male with history of chronic leg weakness, bilateral leg edema, hepatitis C, cirrhosis of the liver, hepatic encephalopathy, C1 and C2 spinal fractures, here with EMS with complaint of I am numb all over. Patient has had same complaint and presentation in the recent past. When asked to further describe this patient becomes verbally abusive and aggressive. Patient notes weakness in his legs bilaterally. This is a chronic ongoing problem. Related Data Home Medications Medication Instructions Recorded Confirmed epinephrine 0.3 mg/0.3 mL 0.3 mg IM DIRECTED PRN 01/15/13 09/12/21 injection, auto-injector atorvastatin 40 mg tablet (Lipitor) 40 mg PO QPM 08/19/16 09/12/21 lactulose 10 gram/15 mL oral 45 gm PO TID 08/19/16 09/12/21 solution (Constulose) magnesium oxide 400 mg (241.3 mg 400 mg PO BID 11/19/16 09/12/21 magnesium) tablet multivitamin 1 ea PO DAILY 11/19/16 09/12/21 thiamine mononitrate (vit B1) 100 100 mg PO DAILY 11/19/16 09/12/21 mg tablet (Vitamin B-1 (mononitrate)) aspirin 81 mg tablet,delayed 81 mg PO DAILY 03/15/17 09/12/21 release (Aspir-) lidocaine 5 % topical patch 1 patch topical Q24H #4 patches 10/30/18 09/12/21 (Lidoderm) pantoprazole 20 mg tablet,delayed 20 mg PO DAILY 11/01/19 09/12/21 release (Protonix) duloxetine 30 mg capsule,delayed 60 mg PO DAILY 07/18/21 09/12/21 release (Cymbalta) furosemide 20 mg tablet 40 mg PO BID 07/18/21 09/12/21 spironolactone 50 mg tablet 50 mg PO DAILY 07/18/21 09/12/21 tamsulosin 0.4 mg capsule (Flomax) 0.8 mg PO DAILY 07/18/21 09/12/21 trazodone 50 mg tablet 50 mg PO DAILY 07/18/21 09/12/21 polyethylene glycol 3350 17 17 g PO DAILY PRN PRN 07/28/21 09/12/21 gram/dose oral powder (Miralax) ammonium lactate 12 % lotion 1 applic topical DAILY #400 grams 08/11/21 09/12/21 amoxicillin 875 mg-potassium 1 tab PO BID #14 tabs 08/11/21 09/12/21 clavulanate 125 mg tablet ascorbic acid (vitamin C) 500 mg 500 mg PO BID #60 tabs 08/11/21 09/12/21 tablet (Vitamin C) ferrous sulfate 325 mg (65 mg 325 mg PO BID #60 tabs 08/11/21 09/12/21 iron) tablet gabapentin 300 mg capsule 900 mg PO TID #90 caps 08/11/21 09/12/21 lanolin alcohols-mineral 1 applic topical PRN PRN #454 grams 08/11/21 09/12/21 oil-w.petrolatum-ceresin topical cream (Eucerin topical cream) morphine 30 mg tablet,extended 30 mg PO BID #20 tabs 08/11/21 09/12/21 release (MS Contin) silver sulfadiazine 1 % topical 1 applic topical DAILY #85 grams 08/11/21 09/12/21 cream (SSD) sulfamethoxazole 800 1 tab PO BID #14 tabs 08/11/21 09/12/21 mg-trimethoprim 160 mg tablet Previous Rx's Medication Instructions Recorded lidocaine 5 % topical patch 1 patch topical Q24H #4 patches 10/30/18 (Lidoderm) ammonium lactate 12 % lotion 1 applic topical DAILY #400 grams 08/11/21 amoxicillin 875 mg-potassium 1 tab PO BID #14 tabs 08/11/21 clavulanate 125 mg tablet ascorbic acid (vitamin C) 500 mg 500 mg PO BID #60 tabs 08/11/21 tablet (Vitamin C) ferrous sulfate 325 mg (65 mg 325 mg PO BID #60 tabs 08/11/21 iron) tablet gabapentin 300 mg capsule 900 mg PO TID #90 caps 08/11/21 lanolin alcohols-mineral 1 applic topical PRN PRN #454 grams 08/11/21 oil-w.petrolatum-ceresin topical cream (Eucerin topical cream) morphine 30 mg tablet,extended 30 mg PO BID #20 tabs 08/11/21 release (MS Contin) silver sulfadiazine 1 % topical 1 applic topical DAILY #85 grams 08/11/21 cream (SSD) sulfamethoxazole 800 1 tab PO BID #14 tabs 08/11/21 mg-trimethoprim 160 mg tablet Allergies Allergy/AdvReac Type Severity Reaction Status Date / Time venom-honey bee Allergy Severe signs of Unverified 09/12/21 04:40 stroke pregabalin [From Lyrica] Allergy Mild Unverified 09/12/21 04:40 varenicline tartrate AdvReac Unknown Nausea Unverified 09/12/21 04:40 [From Chantix] General Stated Complaint: GenMedical SCOT: 4 PFSH All Active Problems (Updated 09/12/21 @ 04:52 by Michael Montoya MD) Alcohol intoxication (Acute) Acute exacerbation of chronic low back pain (Acute) Open leg wound (Acute) Acute exacerbation of chronic low back pain (Acute) Open leg wound (Acute) Chronic pain (Chronic) Generalized weakness (Acute) Bilateral leg weakness (Acute) Chronic wound of extremity (Acute) Bilateral leg weakness (Acute) Chronic back pain (Acute) Chronic leg pain (Acute) Chronic neck pain (Acute) Chronic back pain (Acute) Numbness (Acute) Polymicrobial bacterial infection (Acute) Constipation (Chronic) MRSA cellulitis (Acute) Chronic anemia (Acute) Pressure ulcers of skin of multiple topographic sites (Acute) Chronic cutaneous venous stasis ulcer (Chronic) Chronic venous stasis dermatitis of both lower extremities (Acute) Polysubstance abuse (Acute) Discharge planning issues (Acute) GERD (gastroesophageal reflux disease) (Chronic) Alcoholic cirrhosis of liver (Chronic) Continuous chronic alcoholism (Acute 01/15/13) Medical History Acute alcohol intoxication Alcohol dependence Anemia Arthritis Bilateral leg edema Chronic pain Cirrhosis of liver Diabetic peripheral neuropathy Encephalopathy, hepatic Hepatitis C Hyperlipidemia Knee pain, right TIA (transient ischemic attack) TIA (transient ischemic attack) Ulnar neuropathy Urinary retention Surgical History H/O cervical spine surgery Hx of total knee arthroplasty Social History Smoking/Tobacco Use Status: Current every day Tobacco Type: cigarettes and e- cigarettes Smoking risk assessment performed?: Yes Alcohol Intake: current Alcohol Intake frequency: 3 or more drinks per day Alcohol type: beer, wine and hard liquor Drug use: Occasionally Substance use type: marijuana Housing: apartment Number of Children: 3 What type of physical activity do you participate in: walking Do you feel safe at home: Yes Do you feel safe in your relationship?: Yes Exam Const General: uncooperative Nutritional Appearance: well nourished Orientation: alert [facility] Head: normocephalic and atraumatic Mouth: moist mucous membranes Eyes Conjunctivae: normal conjunctivae Sclera: normal sclerae EOM: EOM intact bilaterally Neck Neck: trachea midline and supple Resp Effort & Inspection: normal respiratory effort Auscultation: clear to auscultation bilaterally, no rales, no rhonchi and no wheezes Cardio Rate: regular rate and not tachycardic Rhythm: regular rhythm GI Palpation: soft, not firm, no guarding, no masses, not rigid and nontender Back/Spine/Pelvis Cervical Spine: No cervical spinal tenderness Skin General skin exam: no rashes or lesions noted Neuro General: patient alert, patient awake, patient oriented x3 and tone normal Speech: speech normal Other: Patient does not participate with examination, he is able to move all extremities Extrem General: edema Laterality: bilateral Psych Appearance: grossly normal Mental Status: mental status grossly normal Speech and Movement: speech and movement normal Course Vital Signs Vital signs: Vital Signs Temperature 37.5 C 09/12/21 04:27 Pulse 82 09/12/21 04:27 Respiratory Rate 18 09/12/21 04:27 Blood Pressure 110/76 09/12/21 04:27 Pulse Oximetry 98 09/12/21 04:27 Temperature 37.5 C 09/12/21 04:27 Temperature Source Temporal Artery Scan 09/12/21 04:27 Pulse 82 09/12/21 04:27 Respiratory Rate 18 09/12/21 04:27 Respiratory Effort 09/12/21 04:37 Blood Pressure 110/76 09/12/21 04:27 Blood Pressure Position Sitting 09/12/21 04:27 Pulse Oximetry 98 09/12/21 04:27 Pain Level 10 09/12/21 04:27
--- NOTE | 2021-09-12 05:07 | NUR.NOTE ---
Referral to Care Management to help get patient f/u with [facility]. Faxed referral to [facility] for pcp f/u for body numbness.Nursing Note:
== END 2021-09-12 05:01 | disposition home or self-care (01) ==
LOC: ER 05:02
PROVIDERS: Emergency Provider Student in an Organized Health Care Education/Training Program; PCP Family Medicine
DX: R20.0 Anesthesia of skin (principal); R53.1 Weakness
CPT/HCPCS: 99283; 99282

== ENCOUNTER 2021-09-12 15:58 | Inpatient (IN) | payer MEDICAID, SELFPAY ==
--- NOTE | 2021-09-12 15:45 | RT.EKG_ITS ---
APPROVED REPORT Exam: Resting ECG Reason for Exam: [facility] Patient Location: I HR:112 bpm ECG Measurements Heart Rate 112 AXIS OH 117 P 62 QRSd 85 QRS 27 QT 326 T 43 QTc 447 Conclusion Sinus tachycardia...rate> 99
[2021-09-12 16:00] VITALS: BP 139/85; PULSE 113; RESP 18; TEMP 39.1; O2SAT 97
--- NOTE | 2021-09-12 16:02 | ED.GENADUL_ITS ---
Discharge Plan Discharge Details Chief Complaint: Fever Admit Date/Time: 09/12/21 17:42 Admit Provider: Brielle Byers Attending Provider: Brielle Byers Primary Care Provider: Sushil Figueroa ED Provider: Alberto Lynn Medical Decision Making Chest x-ray normal, no infiltrate EKG and troponin normal Leukocytosis increased vomiting and redness of the lower extremities negative think he has cellulitis. No sepsis. UA pending Case discussed with Dr. Byers. Patient admitted for cellulitis HPI General Date/Time Provider Initiated Documentation: 09/12/21 16:02 . HPI Narrative: 61-year-old gentleman brought to the emergency department via EMS for evaluation of altered mental status, pain. It is unclear to me who called EMS. EMS cannot give me good history. According to EMS he was sent with a 104 temp is with sinus tachycardia. Patient is a poor historian. He has chronic leg wounds. Chronic alcoholic who was in the emergency department frequently. He was apparently discharged this morning from the emergency department. He states that he went home his discharge from his mobile home. He states he also has a few alcoholic beverages throughout the day. He does not endorse any headaches. No sore throat. No cough. No shortness of breath. No chest pain. No shortness of breath. No abdominal pain. No nausea or vomiting. He is complaining of pain all over. Related Data Home Medications Medication Instructions Recorded Confirmed epinephrine 0.3 mg/0.3 mL 0.3 mg IM DIRECTED PRN 01/15/13 09/12/21 injection, auto-injector atorvastatin 40 mg tablet (Lipitor) 40 mg PO QPM 08/19/16 09/12/21 lactulose 10 gram/15 mL oral 45 gm PO TID 08/19/16 09/12/21 solution (Constulose) magnesium oxide 400 mg (241.3 mg 400 mg PO BID 11/19/16 09/12/21 magnesium) tablet multivitamin 1 ea PO DAILY 11/19/16 09/12/21 thiamine mononitrate (vit B1) 100 100 mg PO DAILY 11/19/16 09/12/21 mg tablet (Vitamin B-1 (mononitrate)) aspirin 81 mg tablet,delayed 81 mg PO DAILY 03/15/17 09/12/21 release (Aspir-) lidocaine 5 % topical patch 1 patch topical Q24H #4 patches 10/30/18 09/12/21 (Lidoderm) pantoprazole 20 mg tablet,delayed 20 mg PO DAILY 11/01/19 09/12/21 release (Protonix) duloxetine 30 mg capsule,delayed 60 mg PO DAILY 07/18/21 09/12/21 release (Cymbalta) furosemide 20 mg tablet 40 mg PO BID 07/18/21 09/12/21 spironolactone 50 mg tablet 50 mg PO DAILY 07/18/21 09/12/21 tamsulosin 0.4 mg capsule (Flomax) 0.8 mg PO DAILY 07/18/21 09/12/21 trazodone 50 mg tablet 50 mg PO DAILY 07/18/21 09/12/21 polyethylene glycol 3350 17 17 g PO DAILY PRN PRN 07/28/21 09/12/21 gram/dose oral powder (Miralax) ammonium lactate 12 % lotion 1 applic topical DAILY #400 grams 08/11/21 09/12/21 amoxicillin 875 mg-potassium 1 tab PO BID #14 tabs 08/11/21 09/12/21 clavulanate 125 mg tablet ascorbic acid (vitamin C) 500 mg 500 mg PO BID #60 tabs 08/11/21 09/12/21 tablet (Vitamin C) ferrous sulfate 325 mg (65 mg 325 mg PO BID #60 tabs 08/11/21 09/12/21 iron) tablet gabapentin 300 mg capsule 900 mg PO TID #90 caps 08/11/21 09/12/21 lanolin alcohols-mineral 1 applic topical PRN PRN #454 grams 08/11/21 09/12/21 oil-w.petrolatum-ceresin topical cream (Eucerin topical cream) morphine 30 mg tablet,extended 30 mg PO BID #20 tabs 08/11/21 09/12/21 release (MS Contin) silver sulfadiazine 1 % topical 1 applic topical DAILY #85 grams 08/11/21 09/12/21 cream (SSD) sulfamethoxazole 800 1 tab PO BID #14 tabs 08/11/21 09/12/21 mg-trimethoprim 160 mg tablet Previous Rx's Medication Instructions Recorded lidocaine 5 % topical patch 1 patch topical Q24H #4 patches 10/30/18 (Lidoderm) ammonium lactate 12 % lotion 1 applic topical DAILY #400 grams 08/11/21 amoxicillin 875 mg-potassium 1 tab PO BID #14 tabs 08/11/21 clavulanate 125 mg tablet ascorbic acid (vitamin C) 500 mg 500 mg PO BID #60 tabs 08/11/21 tablet (Vitamin C) ferrous sulfate 325 mg (65 mg 325 mg PO BID #60 tabs 08/11/21 iron) tablet gabapentin 300 mg capsule 900 mg PO TID #90 caps 08/11/21 lanolin alcohols-mineral 1 applic topical PRN PRN #454 grams 08/11/21 oil-w.petrolatum-ceresin topical cream (Eucerin topical cream) morphine 30 mg tablet,extended 30 mg PO BID #20 tabs 08/11/21 release (MS Contin) silver sulfadiazine 1 % topical 1 applic topical DAILY #85 grams 08/11/21 cream (SSD) sulfamethoxazole 800 1 tab PO BID #14 tabs 08/11/21 mg-trimethoprim 160 mg tablet Allergies Allergy/AdvReac Type Severity Reaction Status Date / Time venom-honey bee Allergy Severe signs of Unverified 09/12/21 04:40 stroke pregabalin [From Lyrica] Allergy Mild Unverified 09/12/21 04:40 varenicline tartrate AdvReac Unknown Nausea Unverified 09/12/21 04:40 [From Chantix] General Stated Complaint: Fever SCOT: 3 Review of Systems Narrative: Constitutional positive for malaise and fatigue. Negative chills. Patient was unaware that he had a fever. HEENT negative Cardiovascular no chest pain. No palpitations. Respiratory no shortness of breath no cough. GI no nausea no vomiting. No abdominal pain. No constipation. No diarrhea. negative normal urine output according to patient. MSK myalgia arthralgia. Skin positive redness of lower extremities B. Positive drainage of open wounds to the posterior aspect of both calves Neuro no headaches. Positive chronic paresthesias of the lower extremities Psych negative Endo negative hematological no PFSH All Active Problems (Updated 09/12/21 @ 19:08 by Brielle Byers MD) Acute on chronic diastolic (congestive) heart failure (Acute) Discharge planning issues (Acute) DVT prophylaxis (Acute) Thrombocytopenia (Acute) Sepsis (Acute) Bilateral lower leg cellulitis (Acute) Alcohol intoxication (Acute) Acute exacerbation of chronic low back pain (Acute) Open leg wound (Acute) Acute exacerbation of chronic low back pain (Acute) Open leg wound (Acute) Chronic pain (Chronic) Generalized weakness (Acute) Bilateral leg weakness (Acute) Chronic wound of extremity (Acute) Bilateral leg weakness (Acute) Chronic back pain (Acute) Chronic leg pain (Acute) Chronic neck pain (Acute) Chronic back pain (Acute) Numbness (Acute) Polymicrobial bacterial infection (Acute) Constipation (Chronic) MRSA cellulitis (Acute) Chronic anemia (Acute) Pressure ulcers of skin of multiple topographic sites (Acute) Chronic cutaneous venous stasis ulcer (Chronic) Chronic venous stasis dermatitis of both lower extremities (Acute) Polysubstance abuse (Acute) Discharge planning issues (Acute) GERD (gastroesophageal reflux disease) (Chronic) Alcoholic cirrhosis of liver (Chronic) Continuous chronic alcoholism (Chronic 01/15/13) Medical History Acute alcohol intoxication Alcohol dependence Anemia Arthritis Bilateral leg edema Chronic pain Cirrhosis of liver Diabetic peripheral neuropathy Encephalopathy, hepatic Hepatitis C Hyperlipidemia Knee pain, right TIA (transient ischemic attack) TIA (transient ischemic attack) Ulnar neuropathy Urinary retention Surgical History H/O cervical spine surgery Hx of total knee arthroplasty Social History Smoking/Tobacco Use Status: Current every day Tobacco Type: cigarettes and e- cigarettes Smoking risk assessment performed?: Yes Alcohol Intake: current Alcohol Intake frequency: 3 or more drinks per day Alcohol type: beer, wine and hard liquor Drug use: Occasionally Substance use type: marijuana Housing: apartment Number of Children: 3 What type of physical activity do you participate in: walking Do you feel safe at home: Yes Do you feel safe in your relationship?: Yes Exam Narrative Exam Narrative: Awake alert Chloride x3 poorly cooperative, biligerent PERRLA EOMI MMM Supple neck Clear to auscultation bilaterally RRR no m/r/g abd s nd nt back normal inspection ext: pos B lower extr edema pos edema- pos erythema pos drainage of pos aspect of the lower ext neuro grossly intact psych adequare mood and affect Const General: uncooperative Nutritional Appearance: well nourished Orientation: alert HENMT Head: normocephalic and atraumatic Mouth: moist mucous membranes Eyes Conjunctivae: normal conjunctivae Sclera: normal sclerae EOM: EOM intact bilaterally Neck Neck: trachea midline and supple Resp Effort & Inspection: normal respiratory effort Auscultation: clear to auscultation bilaterally, no rales, no rhonchi and no wheezes Cardio Rate: regular rate and not tachycardic Rhythm: regular rhythm GI Palpation: soft, not firm, no guarding, no masses, not rigid and nontender Back/Spine/Pelvis Cervical Spine: No cervical spinal tenderness Skin General skin exam: no rashes or lesions noted Neuro General: patient alert, patient awake, patient oriented x3 and tone normal Speech: speech normal Other: Patient does not participate with examination, he is able to move all extremities Extrem General: edema Laterality: bilateral Psych Appearance: grossly normal Mental Status: mental status grossly normal Speech and Movement: speech and movement normal Course Vital Signs Vital signs: Vital Signs Temperature 39.1 C H 09/12/21 16:00 Pulse 113 H 09/12/21 16:00 Respiratory Rate 18 09/12/21 16:00 Blood Pressure 139/85 09/12/21 16:00 Pulse Oximetry 97 09/12/21 16:00 Temperature 39.1 C H 09/12/21 16:00 Temperature Source Tympanic 09/12/21 16:00 Pulse 113 H 09/12/21 16:00 Respiratory Rate 18 09/12/21 16:00 Blood Pressure 139/85 09/12/21 16:00 Blood Pressure Position Supine 09/12/21 16:00 Pulse Oximetry 97 09/12/21 16:00 Oxygen Delivery Method Room Air 09/12/21 16:00 Oxygen Flow Rate 0 09/12/21 16:00 Pain Level 10 09/12/21 16:00
--- NOTE | 2021-09-12 16:15 | DI.RAD_ITS ---
Exam(s) XR CHEST 2V PA LATERAL EXAM: XR CHEST 2V PA LATERAL CLINICAL HISTORY: fever cough TECHNIQUE: 2D digital imaging was performed. COMPARISON: CR XR CHEST 2V PA LATERAL from 12/20/2019 FINDINGS: Exam is limited by expiratory lung blair particularly on the lateral views. Exam is also somewhat l imited by patient body habitus. No focal infiltrate or effusion is seen. There is no evidence of pu lmonary edema. There is no pneumothorax. There is hardware in the lower cervical upper thoracic spi ne. IMPRESSION: Limited exam. No acute abnormality. DATA REPOSITORY: RADIATION DOSE DELIVERED:
[2021-09-12 16:35] LABS: Absolute Lymphocyte Count 0.31 10^3/uL (1.2-3.4); Basophils % 0.1; HCT 34.1 % (40.0-50.0); HGB 10.6 g/dL (13.5-17.5); Immature Grans % 0.7; Lymphocytes % 2.2; MCH 25.1 pg (27.0-33.0); MCHC 31.1 % (32.0-36.0); MCV 81 fL (80-95); MPV 10.8 fL (8.0-11.0); Monocytes % 1.7; Neutrophils % 95.3; Platelet Count 86 10^3/uL (130-400); RBC 4.23 10^6/uL (4.36-5.78); RDW 17.9 % (11.8-14.1); RDW-SD 52.7 fL; WBC 13.93 10^3/uL (4.4-10.8)
[2021-09-12] MEDS: Normal Saline 1,000 ML 1000 ML IV (16:36)
[2021-09-12] MEDS: Acetaminophen 500 MG TAB 1000 MG PO (16:36)
[2021-09-12 16:37] LABS: Absolute Basophil Count 0.01 10^3/uL (0.0-0.2); Absolute Monocyte Count 0.24 10^3/uL (0.1-0.8); Absolute Neutrophil Count 13.28 10^3/uL (1.2-6.7)
[2021-09-12 16:47] LABS: ALT 38 U/L (16-63); AST 35 U/L (15-37); Albumin 3.4 g/dL (3.4-5.0); Alkaline Phosphatase 121 U/L (46-116); Anion Gap 12.4 mmol/L (3-11); BUN 23 mg/dL (7-18); Bilirubin, Total 0.8 mg/dL (0.2-1.0); CO2 23.6 mmol/L (21.0-32.0); CREATININE 1.2 mg/dL (0.70-1.30); Calcium 8.6 mg/dL (8.5-10.1); Chloride 99 mmol/L (98-107); Glucose 136 mg/dL (74-106); Potassium 3.8 mmol/L (3.5-5.1); Sodium 135 mmol/L (136-145); Total Protein 8.2 g/dL (6.4-8.2)
--- NOTE | 2021-09-12 16:58 | DI.VRAD_ITS ---
PROCEDURE INFORMATION: Exam: XR Chest Exam date and time: 09/12/2021 4:47 PM Age: 61 years old Clinical indication: Other: Fever cough TECHNIQUE: Imaging protocol: XR of the chest. Views: 2 views. COMPARISON: CR XR CHEST 2V PA LATERAL 12/20/2019 2:37 PM FINDINGS: Lungs: No consolidation. Low lung volumes limit evaluation however. Pleural spaces: No sizable pleural effusion. No pneumothorax. Heart/Mediastinum: Cardiomediastinal silhouette is within normal limits. Bones/joints: No acute displaced fracture or dislocation. IMPRESSION: No acute cardiopulmonary process. Dictated and Authenticated by: Vu Galvan MD. Ordering:OLIVER Dominguez MD
[2021-09-12 17:05] LABS: ETHANOL BLOOD < 3.0 mg/dL (<10)
[2021-09-12 17:16] VITALS: BP 122/77; PULSE 105; RESP 18; TEMP 38.5; O2SAT 94
[2021-09-12 17:32] LABS: Bilirubin Small (Negative); Blood Large (Negative); Clarity Clear (Clear); Glucose Negative (Negative); Ketones Negative (Negative); Leukocyte Esterase Negative (Negative); Nitrite Negative (Negative); Specific Gravity >= 1.030 (1.005-1.025); Urobilinogen 0.2 EU/dL (Up TO 0.2)
[2021-09-12 17:38] LABS: Epithelial Cells Negative HPF (Negative); RBC >50 HPF (0-2)
[2021-09-12 17:39] LABS: Bacteria Many HPF (Negative); C & S Indicated? Yes; Casts Negative LPF (Negative); Crystals Negative HPF (Negative); Mucus Trace (Negative)
[2021-09-12] MEDS: VANCOMYCIN/WATER (PEG) 1 GM/200 ML BAG IVPB (17:41)
--- NOTE | 2021-09-12 17:47 | HPE_ITS ---
Date of service: 09/12/21 Time of Service: 16:47 Assessment and Plan Assessment and plan (1) Sepsis: Status: Acute Assessment and plan: due to cellulitis BLEs. Given past wound cultures, will cover with vancomycin/cefepime and consider addition of metronidazole. Blood cultures pending. Wound care consult. We will also treat the patient as a PUI until COVID-19 ruled out. CXR negative for PNA. (2) Bilateral lower leg cellulitis: Status: Acute Assessment and plan: As above (3) Acute on chronic diastolic (congestive) heart failure: Status: Acute Assessment and plan: Will diurese with IV lasix, monitoring I/Os and daily weights as well as kidney function. (4) Chronic cutaneous venous stasis ulcer: Status: Chronic Assessment and plan: As above (5) Continuous chronic alcoholism: Status: Chronic Assessment and plan: Continues to drink. EtOH level today in the ED was 0. Monitor on CIWA, but the patient did not withdraw on past admission. (6) Alcoholic cirrhosis of liver: Status: Chronic Assessment and plan: Given AMS, will check ammonia (7) Thrombocytopenia: Status: Acute Assessment and plan: In setting of EtOH abuse, sepsis. Avoid chemical DVT ppx. Monitor plts with treatment of infection. (8) DVT prophylaxis: Status: Acute Assessment and plan: Will hold off of chemical DVT ppx at this time due to thrombocytopenia. Will hold off of mechanical DVT ppx due to LE infection (9) Discharge planning issues: Status: Acute Assessment and plan: DNR, but not DNI Homeless. PUI. History of Present Illness History of Present Illness Chief Complaint: 911 called for AMS Narrative: Mr Austin is a 61 year old male with PMHx of BLE venous stasis infected ulcers and cellulitis, NIDDM2, alcohol abuse and alcoholic cirrhosis, who was brought to [facility] ED by ambulance after the neighbors called 911 for AMS. His clinical evaluation in the ED reveals a febrile patient with leucocytosis and evidence of BLE cellulitis. As far as his altered mental status, he is being unusually polite. He was initiated on empiric vancomycin. Hospitalist admission was requested. When I came to evaluate Mr Austin, he stated that he is not sure how long he has been sick, that his legs have been bothering him about the same amount as usual. He did report being short of breath for 3-4 days, denied a cough or exposures to anyone with COVID-19. Review of Systems All systems reviewed & are unremarkable except as noted in HPI and below PFSH All Active Problems (Updated 09/12/21 @ 19:08 by Brielle Byers MD) Acute on chronic diastolic (congestive) heart failure (Acute) Discharge planning issues (Acute) DVT prophylaxis (Acute) Thrombocytopenia (Acute) Sepsis (Acute) Bilateral lower leg cellulitis (Acute) Alcohol intoxication (Acute) Acute exacerbation of chronic low back pain (Acute) Open leg wound (Acute) Acute exacerbation of chronic low back pain (Acute) Open leg wound (Acute) Chronic pain (Chronic) Generalized weakness (Acute) Bilateral leg weakness (Acute) Chronic wound of extremity (Acute) Bilateral leg weakness (Acute) Chronic back pain (Acute) Chronic leg pain (Acute) Chronic neck pain (Acute) Chronic back pain (Acute) Numbness (Acute) Polymicrobial bacterial infection (Acute) Constipation (Chronic) MRSA cellulitis (Acute) Chronic anemia (Acute) Pressure ulcers of skin of multiple topographic sites (Acute) Chronic cutaneous venous stasis ulcer (Chronic) Chronic venous stasis dermatitis of both lower extremities (Acute) Polysubstance abuse (Acute) Discharge planning issues (Acute) GERD (gastroesophageal reflux disease) (Chronic) Alcoholic cirrhosis of liver (Chronic) Continuous chronic alcoholism (Chronic 01/15/13) Medical History Acute alcohol intoxication Alcohol dependence Anemia Arthritis Bilateral leg edema Chronic pain Cirrhosis of liver Diabetic peripheral neuropathy Encephalopathy, hepatic Hepatitis C Hyperlipidemia Knee pain, right TIA (transient ischemic attack) TIA (transient ischemic attack) Ulnar neuropathy Urinary retention Surgical History H/O cervical spine surgery Hx of total knee arthroplasty Social History Smoking/Tobacco Use Status: Current every day Tobacco Type: cigarettes and e- cigarettes Smoking risk assessment performed?: Yes Alcohol Intake: current Alcohol Intake frequency: 3 or more drinks per day Alcohol type: beer, wine and hard liquor Drug use: Occasionally Substance use type: marijuana Housing: apartment Number of Children: 3 What type of physical activity do you participate in: walking Do you feel safe at home: Yes Do you feel safe in your relationship?: Yes Meds Allergies and Home Medications Allergies Allergy/AdvReac Type Severity Reaction Status Date / Time venom-honey bee Allergy Severe signs of Unverified 09/12/21 04:40 stroke pregabalin [From Lyrica] Allergy Mild Unverified 09/12/21 04:40 varenicline tartrate AdvReac Unknown Nausea Unverified 09/12/21 04:40 [From Chantix] Home Medications Medication Instructions Recorded Confirmed Type epinephrine 0.3 mg/0.3 mL 0.3 mg IM DIRECTED PRN 01/15/13 09/12/21 History injection, auto-injector atorvastatin 40 mg tablet (Lipitor) 40 mg PO QPM 08/19/16 09/12/21 History lactulose 10 gram/15 mL oral 45 gm PO TID 08/19/16 09/12/21 History solution (Constulose) magnesium oxide 400 mg (241.3 mg 400 mg PO BID 11/19/16 09/12/21 History magnesium) tablet multivitamin 1 ea PO DAILY 11/19/16 09/12/21 History thiamine mononitrate (vit B1) 100 100 mg PO DAILY 11/19/16 09/12/21 History mg tablet (Vitamin B-1 (mononitrate)) aspirin 81 mg tablet,delayed 81 mg PO DAILY 03/15/17 09/12/21 History release (Aspir-) lidocaine 5 % topical patch 1 patch topical Q24H #4 patches 10/30/18 09/12/21 Rx (Lidoderm) pantoprazole 20 mg tablet,delayed 20 mg PO DAILY 11/01/19 09/12/21 History release (Protonix) duloxetine 30 mg capsule,delayed 60 mg PO DAILY 07/18/21 09/12/21 History release (Cymbalta) furosemide 20 mg tablet 40 mg PO BID 07/18/21 09/12/21 History spironolactone 50 mg tablet 50 mg PO DAILY 07/18/21 09/12/21 History tamsulosin 0.4 mg capsule (Flomax) 0.8 mg PO DAILY 07/18/21 09/12/21 History trazodone 50 mg tablet 50 mg PO DAILY 07/18/21 09/12/21 History polyethylene glycol 3350 17 17 g PO DAILY PRN PRN 07/28/21 09/12/21 History gram/dose oral powder (Miralax) ammonium lactate 12 % lotion 1 applic topical DAILY #400 grams 08/11/21 09/12/21 Rx amoxicillin 875 mg-potassium 1 tab PO BID #14 tabs 08/11/21 09/12/21 Rx clavulanate 125 mg tablet ascorbic acid (vitamin C) 500 mg 500 mg PO BID #60 tabs 08/11/21 09/12/21 Rx tablet (Vitamin C) ferrous sulfate 325 mg (65 mg 325 mg PO BID #60 tabs 08/11/21 09/12/21 Rx iron) tablet gabapentin 300 mg capsule 900 mg PO TID #90 caps 08/11/21 09/12/21 Rx lanolin alcohols-mineral 1 applic topical PRN PRN #454 grams 08/11/21 09/12/21 Rx oil-w.petrolatum-ceresin topical cream (Eucerin topical cream) morphine 30 mg tablet,extended 30 mg PO BID #20 tabs 08/11/21 09/12/21 Rx release (MS Contin) silver sulfadiazine 1 % topical 1 applic topical DAILY #85 grams 08/11/21 09/12/21 Rx cream (SSD) sulfamethoxazole 800 1 tab PO BID #14 tabs 08/11/21 09/12/21 Rx mg-trimethoprim 160 mg tablet Exam Narrative Exam Narrative: General: Middle-aged male who is A&Ox3, looks mildly dyspneic, completing short sentences, Neurological: A&Ox3, no focal deficits, not tremulous Psychiatric: Mildly anxious, irritable Skin: B calves with weeping wounds, R>L HEENT: Atraumatic, normocephalic, EOMI, MMM, clear oropharynx, no submandibular or cervical lymphadenopathy, no goiter or JVD Cardiovascular: RRR, no m/r/g Lungs: dyspneic, slight rales at B bases Gastrointestinal: soft, nontender, nondistended Genitourinary: deferred Extremities: 2+BLE edema, mild erythema; BLE wounds on calves are difficult to examine, but weeping R>L, no lesions on B feet Results Imaging Additional studies: CXR: Limited exam.? No acute abnormality.? Labs Result diagrams: 09/12/21 16:25 09/12/21 16:25 Labs: Laboratory Results - last 24 hr 09/12/21 09/12/21 09/12/21 16:25 16:25 17:27 WBC 13.93 H RBC 4.23 L Hgb 10.6 L Hct 34.1 L MCV 81 MCH 25.1 L MCHC 31.1 L RDW 17.9 H Plt Count 86 L MPV 10.8 Immature Gran % 0.7 Neutrophils % 95.3 Lymphocytes % 2.2 Monocytes % 1.7 Eosinophils % 0.0 Basophils % 0.1 Nucleated RBC % 0.0 Absolute Neutrophils 13.28 H Absolute Lymphocytes 0.31 L Absolute Monocytes 0.24 Absolute Eosinophils 0.00 Absolute Basophils 0.01 Sodium 135 L Potassium 3.8 Chloride 99 Carbon Dioxide 23.6 Anion Gap 12.4 H BUN 23 H Creatinine 1.2 Estimated GFR/1.73 m2 >= 60.00 Glucose 136 H Calcium 8.6 Total Bilirubin 0.8 AST 35 ALT 38 Alkaline Phosphatase 121 H Total Protein 8.2 Albumin 3.4 Urine Color Yellow Urine Clarity Clear Urine pH 6.0 Ur Specific [place] >= 1.030 H Urine Protein 100 H Urine Ketones Negative Urine Blood Large H Urine Nitrite Negative Urine Bilirubin Small H Urine Urobilinogen 0.2 Ur Leukocyte Esterase Negative Urine RBC >50 H Urine WBC 10-20 H Ur Epithelial Cells Negative Urine Crystals Negative Urine Bacteria Many Urine Casts Negative Urine Mucus Trace Ur Culture Indicated? Yes Urine Glucose Negative Ethyl Alcohol < 3.0 Last Vital Signs Temp 38.5 C H 09/12/21 17:16 Pulse 105 H 09/12/21 17:16 Resp 18 09/12/21 17:16 BP 122/77 09/12/21 17:16 Pulse Ox 94 09/12/21 17:16 PAWSS Have you Been Recently Intoxicated or Drunk Within the Last 30 days?: Yes Have you Ever Experienced Previous Episodes of Alcohol Withdrawal?: Yes Have you ever Experienced Withdrawal Seizures?: Yes Have you ever Experienced Delirium Tremens(DT)s?: Yes Have you ever undergone Alcohol Rehabilitation Treatment (i.e, inpt ot ou tpatient treatment programs)?: Yes Have you ever Experienced Blackouts?: Yes Have you ever Combined Alcohol with other Downers within the last 90 days?: No Have you ever Combined Alcohol with any other Substance of Abuse during the last 90 days?: No Positive Blood Alcohol level on Presentation? [PCS.BAL]: Yes Evidence of Increased Autonomic Activity (i.e. HR>120, tremor, sweating, agitation, nausea)?: No Result: 7
[2021-09-12 17:58] LABS: Source Nasal/Nares
[2021-09-12 18:18] LABS: Ammonia 43 umol/L (11-32)
[2021-09-12 18:37] VITALS: BP 117/77; PULSE 99; RESP 18; TEMP 37.8; O2SAT 95
[2021-09-12 18:48] LABS: COVID-19 PCR Negative (Negative)
[2021-09-12] MEDS: THIAMINE 100 MG in Normal Saline 100 ML 200 MG IVPB (19:38)
[2021-09-12] MEDS: Normal Saline Flush 10 ML SYR IVP (19:39)
[2021-09-12] MEDS: Nicotine 14 MG/24 HR PATCH TD (19:39)
[2021-09-12] MEDS: Lidocaine 5% Patch 1 PATCH TP (20:43)
[2021-09-12] MEDS: CEFEPIME 2 GM in Normal Saline 100 ML IVPB (20:43)
[2021-09-12 23:06] VITALS: BP 120/78; PULSE 89; RESP 20; TEMP 36.7; O2SAT 95
[2021-09-12] MEDS: Gabapentin 300 MG CAP 900 MG PO (23:15)
[2021-09-13] VITALS (7 sets, daily range): BP systolic 94–121; BP diastolic 48–82; PULSE 90–108; RESP 20–24; TEMP 37.4–38.9; O2SAT 87–97
[2021-09-13] MEDS: CEFEPIME 2 GM in Normal Saline 100 ML IVPB ×3 (01:51→22:02)
[2021-09-13] MEDS: VANCOMYCIN/WATER (PEG) 1 GM/200 ML BAG IV ×3 (03:20→23:42)
[2021-09-13] MEDS: Acetaminophen 325 MG TAB PO ×3 (04:40→14:13)
[2021-09-13 08:02] LABS: Abs Immature Grans 0.08 10^3/uL (0.0-0.06); Absolute Basophil Count 0.02 10^3/uL (0.0-0.2); Absolute Lymphocyte Count 0.46 10^3/uL (1.2-3.4); Absolute Neutrophil Count 9.23 10^3/uL (1.2-6.7); Basophils % 0.2; HGB 9.4 g/dL (13.5-17.5); Immature Grans % 0.8; Lymphocytes % 4.6; MCH 25.4 pg (27.0-33.0); MCHC 31.3 % (32.0-36.0); MCV 81 fL (80-95); MPV 11.2 fL (8.0-11.0); Neutrophils % 92.4; RDW 18.3 % (11.8-14.1); RDW-SD 53.6 fL; WBC 9.99 10^3/uL (4.4-10.8)
[2021-09-13 08:16] LABS: Anion Gap 9.1 mmol/L (3-11); BUN 21 mg/dL (7-18); C-Reactive Protein 16.06 mg/dL (0.0-0.3); CO2 23.9 mmol/L (21.0-32.0); CREATININE 1.2 mg/dL (0.70-1.30); Calcium 8.1 mg/dL (8.5-10.1); Chloride 102 mmol/L (98-107); Glucose 85 mg/dL (74-106); Magnesium 1.6 mg/dL (1.8-2.4); Platelet Count 71 10^3/uL (130-400); Potassium 3.6 mmol/L (3.5-5.1); Sodium 135 mmol/L (136-145)
--- NOTE | 2021-09-13 08:21 | INITIAL_ITS ---
- If Service Date Differs Date of service: 09/13/21 Time of Service: 08:21 Care Management Initial Assess REASON FOR HOSPITALIZATION:: Sepsis due to cellulites BLE's PAST MEDICAL HISTORY/PAST SURGICAL HISTORY:: All Active Problems (Updated 09/12/21 @ 19:08 by Brielle Byers MD). Acute on chronic diastolic (congestive) heart failure (Acute). Discharge planning issues (Acute). DVT prophylaxis (Acute). Thrombocytopenia (Acute). Sepsis (Acute). Bilateral lower leg cellulitis (Acute). Alcohol intoxication (Acute). Acute exacerbation of chronic low back pain (Acute). Open leg wound (Acute). Acute exacerbation of chronic low back pain (Acute). Open leg wound (Acute). Chronic pain (Chronic). Generalized weakness (Acute). Bilateral leg weakness (Acute). Chronic wound of extremity (Acute). Bilateral leg weakness (Acute). Chronic back pain (Acute). Chronic leg pain (Acute). Chronic neck pain (Acute). Chronic back pain (Acute). Numbness (Acute). Polymicrobial bacterial infection (Acute). Constipation (Chronic). MRSA cellulitis (Acute). Chronic anemia (Acute). Pressure ulcers of skin of multiple topographic sites (Acute). Chronic cutaneous venous stasis ulcer (Chronic). Chronic venous stasis dermatitis of both lower extremities (Acute). Polysubstance abuse (Acute). Discharge planning issues (Acute). GERD (gastroesophageal reflux disease) (Chronic). Alcoholic cirrhosis of liver (Chronic). Continuous chronic alcohol ism (Chronic 01/15/13). Medical History . Acute alcohol intoxication. Alcohol dependence. Anemia. Arthritis. Bilateral leg edema. Chronic pain. Cirrhosis of liver. Diabetic peripheral neuropathy. Encephalopathy, hepatic. Hepatitis C. Hyperlipidemia. Knee pain, right. TIA (transient ischemic attack). TIA (transient ischemic attack). Ulnar neuropathy. Urinary retention. Surgical History . H/O cervical spine surgery. Hx of total knee arthroplasty PREVIOUS FUNCTIONAL STATUS/SOCIAL/FAMILY SUPPORTS:: Jackson has been staying in his friend Peng's trailer located in [place] [facility]. He left his cell phone at the above residence and does not know Peng's last name or phone number, so he is unable to contact him. Jackson reports his living situation quite dirty, although he has running water and electicity. He is planning on dicharging back to the trailer but would rather discharge to a penitentiary. CURRENT FUNCTIONAL STATUS:: Jackson was lying in bed when CM met with him. He is alert, oriented and pleasant. During our conversation he is apologetic for his past behavior's at [facility]. Jackson has been living in a trailer in [place] with his friend Peng. Per Jackson, he is able to discharge back to the trail and Peng is available 09/11 to help him if he needs it. ADVANCE DIRECTIVES:: none on file Has patient been provided with info about the portal/API?: Yes Did the patient sign up for the portal?: Yes (Prior to admission) CODE STATUS:: DNR INSURANCE COVERAGE / FINANCIAL ISSUES:: Medicaid CURRENT HOME/COMMUNITY SERVICES/EQUIPMENT:: Jackson uses a walker for ambulation. He does not currently receive any community services. PRIMARY CARE PHYSICIAN:: Sushil Figueroa POTENTIAL DISCHARGE NEEDS:: Follow up with PCP and plan of care PATIENT/FAMILY EDUCATION NEEDS:: Review of discharge instructions, activity, limitations, follow up plan, Ask Me Three TRANSPORTATION:: Via RCT PLAN:: Jackson requires IV ABX with blood cultures pending. He requires wound care and is on CIWA. Anticipate, Jackson will discharge back to his friends trailer in [facility] when he is medically ready. He will likely transport via RCT. CM will continue to support Jackson and his discharge planning needs. Jackson understands if he needs Emergency housing at the time of his discharge he should call [facility].
[2021-09-13] MEDS: Furosemide 40 MG/4 ML VIAL IVP ×2 (10:02→15:28)
[2021-09-13] MEDS: Multivitamin TAB 1 TAB PO (10:06)
[2021-09-13] MEDS: Tamsulosin 0.4 MG CAPCR 0.8 MG PO (10:06)
--- NOTE | 2021-09-13 10:06 | IN_ITS ---
Date of service: 09/13/21 Time of Service: 09:45 PT Notes Visit Reasons: Sepsis due to Cellulitis LES Inpatient Physical Therapy Evaluation Date: 09/13/2021 Referring Doctor: Brielle Byers MD PT Orders: PT CONSULT: Limited Ability Precautions: MRSA precautions Patient Profile/Admitting Diagnosis: 61-year-old male admitted for management of sepsis secondary to bilateral lower extremity cellulitis, with history of cardiac heart failure, alcohol abuse and unsteady housing. PMHX: All Active Problems?(Updated 09/12/21 @ 19:08 by Brielle Byers MD) Acute on chronic diastolic (congestive) heart failure (Acute) Discharge planning issues (Acute) DVT prophylaxis (Acute) Thrombocytopenia (Acute) Sepsis (Acute) Bilateral lower leg cellulitis (Acute) Alcohol intoxication (Acute) Acute exacerbation of chronic low back pain (Acute) Open leg wound (Acute) Acute exacerbation of chronic low back pain (Acute) Open leg wound (Acute) Chronic pain (Chronic) Generalized weakness (Acute) Bilateral leg weakness (Acute) Chronic wound of extremity (Acute) Bilateral leg weakness (Acute) Chronic back pain (Acute) Chronic leg pain (Acute) Chronic neck pain (Acute) Chronic back pain (Acute) Numbness (Acute) Polymicrobial bacterial infection (Acute) Constipation (Chronic) MRSA cellulitis (Acute) Chronic anemia (Acute) Pressure ulcers of skin of multiple topographic sites (Acute) Chronic cutaneous venous stasis ulcer (Chronic) Chronic venous stasis dermatitis of both lower extremities (Acute) Polysubstance abuse (Acute) Discharge planning issues (Acute) GERD (gastroesophageal reflux disease) (Chronic) Alcoholic cirrhosis of liver (Chronic) Continuous chronic alcoholism (Chronic 01/15/13) Medical History? Acute alcohol intoxication Alcohol dependence Anemia Arthritis Bilateral leg edema Chronic pain Cirrhosis of liver Diabetic peripheral neuropathy Encephalopathy, hepatic Hepatitis C Hyperlipidemia Knee pain, right TIA (transient ischemic attack) TIA (transient ischemic attack) Ulnar neuropathy Urinary retention Surgical History? H/O cervical spine surgery Hx of total knee arthroplasty Social History/Home Situation: Homeless, currently living with an friend in a trailer. 3 steps to enter without a rail. There is always somebody at the trailer to supervise him and assist as needed. Utilizes RCT. Current Functional Limitations: Dependent on use of walker, unsteady on his feet Equipment Owned/DME: Walker Subjective: Jackson stating that he is having a lot of lower extremity pain and spinal pain, with a history of spinal fusions. He feels a lot of his lower extremity discomfort, and hand stiffness and mobility loss is related to spinal dysfunction, he would like to speak to his doctor about this. His physical limitations seem to have been progressing over the past 2 to 3 months. Denies history of falls Objective: General Observation: Lying in hospital bed, reclined at about a 30 degree angle. Bilateral lower extremity swelling. Mental Status: Appears somewhat anxious, also appears a little agitated. He knows person, place and time/date Pain: 8/10, left shoulder, right thigh, bilateral knees, low back. Pain is incr eased since ambulating yesterday, as he had not been very active days prior due to his lower extremity swelling ROM: Right Upper Extremity: Right shoulder limited to 80 degrees flexion and scapular plane, elbow and wrist is within functional limits Left Upper Extremity: Left shoulder limited to 70 degrees scapular plane with pain, elbow wrist WNL. Bilateral sales receptionist ability and digit flexion is limited due to arthritis and strength loss Right Lower Extremity: Right hip 100 degrees, knee 0 to 90 degrees, limited right ankle all planes due to swelling Left Lower Extremity: Left hip 100 degrees, 0-120, ankle limited all planes due to swelling Strength: Right Upper Extremity: 3/5 all planes, any resistance applied increases pain in shoulder Left Upper Extremity: 3/5 all planes, any resistance applied increases pain in shoulder Right Lower Extremity: Quad 4+/5 with pain, hamstring 4/5, hip flexion 3/5, ankle 3/5 with minimal range of motion due to swelling Left Lower Extremity: Quad 5/5, hamstring 4+/5, hip flexion 3+/5, ankle 3/5 throughout with minimal range of motion due to swelling Able to complete supine bridge to manipulate position in bed, but fatigues quick Sensation: Impaired with poor response to light touch bilateral lower extremities. Patient feels this is due to his spinal surgery, but he also has cellulitis. Bed Mobility/Transfers: Is independent with supine to edge of bed, edge of bed to supine, with head of bed elevated 30 degrees. Sit to stand requires close supervision at walker, stand to sit distant supervision but without controlled sit. Ambulates with supervision approximately 40 feet, with multiple change of direction but good steadiness with use of walker Gait: Walker, wide base of support, short stride length, poor flexion of left knee during swing through. Utilizes hypomobile waddling type gait due to limitations of bilateral ankle mobility loss and left knee mobility loss Balance: Stage 4 Balance Test Time (seconds) Feet together 5 Partial tandem unable Tandem unable One foot unable Static Sitting: Fair Dynamic Sitting: Poor Static Standing: Fair with walker Dynamic Standing: Poor Special Tests: Mobility Limitations Standardized Measure 35% Informed Consent/Education: Patient instructed in purpose of PT consult and plan of care. Assessment: Patient is a 61 year old male referred to physical therapy services with the diagnosis of Sepsis, secondary to Demetrius LE cellulitis, with remarkable medical history of alcohol and substance abuse, CHF, multiple joint arthralgias S/P spinal surgeries and joint replacements, peripheral neuropathy, Hep C, and MRSA. Patient presents with global UE and LE mobility and strength deficits, and poor balance, resulting in functional instability with dynamic movements, fall risk, dependency on walker, and chronic pain limiting functional tolerance. AMPAC score or 35% disabiltiy. Patient is assessed as a Moderate 72454 complexity based on the following: History: See comorbidities, homeless Examination: See above impairments and functional limitations Presentation: Evolving Decision Making: moderate Goals: Goals X1 week 1. Supine-Sit I 2. Sit-Supine I 3. Sit-Stand I 4. Stand-Sit I 5. Bed-Chair I 6. Chair-Bed I 7. Gait 100 ft distant supervision with RW 8. Stairs 3 no rail, closer supervision 9. Independent with home exercise program 10. Balance partial tandem stance 5 sec Plan of Care/Treatment Plan: 1-2x/day, 7 days/week x 1 week. Plan of care has been reviewed with the RADIOLOGIC TECHNOLOGY INSTRUCTOR providing the service under Physical Therapy direction. Initiate Physical Therapy intervention for strengthening, bed mobility, transfers, gait, stairs, balance training, use of assistive device. DISCHARGE RECOMMENDATIONS: XX Home (friend's home) with services: HH PT. Outpatient appropriate if RCT can be arranged. PT recommended to limit further functional decline and limit falls. TREATMENT CODE/TIME: [id number], 25 min direct and total Documented with [employer] voice recognition software.
[2021-09-13] MEDS: Gabapentin 300 MG CAP 900 MG PO ×3 (10:07→20:24)
[2021-09-13] MEDS: Thiamine 100 MG TAB PO (10:07)
[2021-09-13] MEDS: Aspirin E.C. 81 MG TABEC PO (10:07)
[2021-09-13] MEDS: Spironolactone 50 MG TAB PO (10:08)
[2021-09-13] MEDS: DULoxetine 30 MG CAP 60 MG PO (10:08)
[2021-09-13] MEDS: traZODone 50 MG TAB PO (10:08)
[2021-09-13] MEDS: Patch Removal 1 EACH TP (10:09)
[2021-09-13] MEDS: Normal Saline Flush 10 ML SYR IVP ×3 (10:09→20:31)
[2021-09-13] MEDS: Pantoprazole 20 MG TABCR PO (10:09)
[2021-09-13] MEDS: Folic Acid 1 MG TAB PO (10:09)
[2021-09-13] MEDS: Ascorbic Acid 500 MG TAB PO ×2 (10:10→20:24)
[2021-09-13] MEDS: Magnesium Oxide 400 MG TAB PO ×2 (10:11→20:24)
[2021-09-13] MEDS: Ferrous Sulfate 325 MG TAB PO ×2 (10:11→20:24)
[2021-09-13] MEDS: Enoxaparin 40 MG/0.4 ML SYR SC (10:12)
[2021-09-13] MEDS: Nicotine 14 MG/24 HR PATCH TD (10:13)
[2021-09-13] MEDS: Insulin Aspart 300 UNITS/3 ML PEN SC (10:16)
[2021-09-13] MEDS: Silver sulfaDIAZINE 1% 25 GM TUBE TP (11:40)
[2021-09-13] MEDS: Lachydrin 12% LOTION 225 GM BTL TP (11:40)
--- NOTE | 2021-09-13 13:52 | W.PM.PROGNOT ---
Date of Service Date of service: 09/13/21 Time of Service: 12:53 Assessment and Plan Assessment and plan (1) Sepsis: Status: Acute Assessment and plan: RLE diffuse cellulitis with ulceration. Given past wound cultures, will cover with vancomycin/cefepime and consider addition of metronidazole. Blood cultures pending. Wound care consult obtained. CXR negative for PNA. (2) Bilateral lower leg cellulitis: Status: Acute Assessment and plan: As above (3) Acute on chronic diastolic (congestive) heart failure: Status: Acute Assessment and plan: Will diurese with IV lasix, monitoring I/Os and daily weights as well as kidney function. (4) Chronic cutaneous venous stasis ulcer: Status: Chronic Assessment and plan: RLE at calf. As above (5) Continuous chronic alcoholism: Status: Chronic Assessment and plan: Continues to drink. EtOH level in the ED was 0. Monitor on CIWA, but the patient did not withdraw on past admission. (6) Alcoholic cirrhosis of liver: Status: Chronic Assessment and plan: Ammonia level of 43 in the ED. Currently w/o mental status alteration. (7) Thrombocytopenia: Status: Acute Assessment and plan: In setting of EtOH abuse, sepsis. Initiated Lovenox Monitor plts with treatment of infection. (8) DVT prophylaxis: Status: Acute Assessment and plan: + thrombocytopenia, but at risk for DVT. Unable to apply mechanical DVT ppx due to LE infection Lovenox initiated. Will need to monitor platelets closely. (9) Discharge planning issues: Status: Acute Assessment and plan: DNR, but not DNI Homeless. PUI. Subjective Subjective Patient reports: no new complaints, tolerating a regular diet and fever; denies nausea or vomiting Exam Const General: cooperative Nutritional Appearance: average body habitus Orientation: alert and oriented x3 Eyes General: appearance normal, both eyes and all related structures Sclera: sclerae normal Resp Effort & Inspection: normal respiratory effort Auscultation: clear to auscultation bilaterally Cardio Rate: regular rate Rhythm: regular rhythm Heart Sounds: S1 normal, S2 normal and no murmurs GI Palpation: soft and nontender Auscultation: normal bowel sounds Skin General skin exam: erythema (Diffuse involving the RLE below the knee. ) Full body images: 1. Shallow ulceration with clear drainage. 2. multiple scab over areas along the ridge of his tibia. Psych Speech and Movement: speech and movement normal Affect: normal affect (Irritable at times. ) Objective Last Vital Signs Temp 38.9 C H 09/13/21 11:13 Pulse 99 H 09/13/21 11:13 Resp 24 09/13/21 11:13 BP 121/82 09/13/21 11:13 Pulse Ox 97 09/13/21 11:13 Laboratory Results - last 24 hr 09/12/21 09/12/21 09/12/21 16:25 16:25 17:27 WBC 13.93 H RBC 4.23 L Hgb 10.6 L Hct 34.1 L MCV 81 MCH 25.1 L MCHC 31.1 L RDW 17.9 H Plt Count 86 L MPV 10.8 Immature Gran % 0.7 Neutrophils % 95.3 Lymphocytes % 2.2 Monocytes % 1.7 Eosinophils % 0.0 Basophils % 0.1 Nucleated RBC % 0.0 Absolute Neutrophils 13.28 H Absolute Lymphocytes 0.31 L Absolute Monocytes 0.24 Absolute Eosinophils 0.00 Absolute Basophils 0.01 Sodium 135 L Potassium 3.8 Chloride 99 Carbon Dioxide 23.6 Anion Gap 12.4 H BUN 23 H Creatinine 1.2 Estimated GFR/1.73 m2 >= 60.00 Glucose 136 H Calcium 8.6 Magnesium Total Bilirubin 0.8 AST 35 ALT 38 Alkaline Phosphatase 121 H Ammonia C-Reactive Protein Total Protein 8.2 Albumin 3.4 Procalcitonin Urine Color Yellow Urine Clarity Clear Urine pH 6.0 Ur Specific Crawford >= 1.030 H Urine Protein 100 H Urine Ketones Negative Urine Blood Large H Urine Nitrite Negative Urine Bilirubin Small H Urine Urobilinogen 0.2 Ur Leukocyte Esterase Negative Urine RBC >50 H Urine WBC 10-20 H Ur Epithelial Cells Negative Urine Crystals Negative Urine Bacteria Many Urine Casts Negative Urine Mucus Trace Ur Culture Indicated? Yes Urine Glucose Negative Ethyl Alcohol < 3.0 COVID-19 Source SARS-CoV-2 (PCR) 09/12/21 09/12/21 09/13/21 17:49 17:55 07:52 WBC RBC Hgb Hct MCV MCH MCHC RDW Plt Count MPV Immature Gran % Neutrophils % Lymphocytes % Monocytes % Eosinophils % Basophils % Nucleated RBC % Absolute Neutrophils Absolute Lymphocytes Absolute Monocytes Absolute Eosinophils Absolute Basophils Sodium 135 L Potassium 3.6 Chloride 102 Carbon Dioxide 23.9 Anion Gap 9.1 BUN 21 H Creatinine 1.2 Estimated GFR/1.73 m2 >= 60.00 Glucose 85 Calcium 8.1 L Magnesium 1.6 L Total Bilirubin AST ALT Alkaline Phosphatase Ammonia 43 H C-Reactive Protein 16.06 H Total Protein Albumin Procalcitonin Urine Color Urine Clarity Urine pH Ur Specific Crawford Urine Protein Urine Ketones Urine Blood Urine Nitrite Urine Bilirubin Urine Urobilinogen Ur Leukocyte Esterase Urine RBC Urine WBC Ur Epithelial Cells Urine Crystals Urine Bacteria Urine Casts Urine Mucus Ur Culture Indicated? Urine Glucose Ethyl Alcohol COVID-19 Source Nasal/Nares SARS-CoV-2 (PCR) Negative 09/13/21 09/13/21 07:52 07:52 WBC 9.99 RBC 3.70 L Hgb 9.4 L Hct 30.0 L MCV 81 MCH 25.4 L MCHC 31.3 L RDW 18.3 H Plt Count 71 L MPV 11.2 H Immature Gran % 0.8 Neutrophils % 92.4 Lymphocytes % 4.6 Monocytes % 2.0 Eosinophils % 0.0 Basophils % 0.2 Nucleated RBC % 0.0 Absolute Neutrophils 9.23 H Absolute Lymphocytes 0.46 L Absolute Monocytes 0.20 Absolute Eosinophils 0.00 Absolute Basophils 0.02 Sodium Potassium Chloride Carbon Dioxide Anion Gap BUN Creatinine Estimated GFR/1.73 m2 Glucose Calcium Magnesium Total Bilirubin AST ALT Alkaline Phosphatase Ammonia C-Reactive Protein Total Protein Albumin Procalcitonin 3.0 Urine Color Urine Clarity Urine pH Ur Specific Crawford Urine Protein Urine Ketones Urine Blood Urine Nitrite Urine Bilirubin Urine Urobilinogen Ur Leukocyte Esterase Urine RBC Urine WBC Ur Epithelial Cells Urine Crystals Urine Bacteria Urine Casts Urine Mucus Ur Culture Indicated? Urine Glucose Ethyl Alcohol COVID-19 Source SARS-CoV-2 (PCR) PAWSS Have you Been Recently Intoxicated or Drunk Within the Last 30 days?: Yes Have you Ever Experienced Previous Episodes of Alcohol Withdrawal?: Yes Have you ever Experienced Withdrawal Seizures?: Yes Have you ever Experienced Delirium Tremens(DT)s?: Yes Have you ever undergone Alcohol Rehabilitation Treatment (i.e, inpt ot outpatient treatment programs)?: Yes Have you ever Experienced Blackouts?: Yes Have you ever Combined Alcohol with other Downers within the last 90 days?: No Have you ever Combined Alcohol with any other Substance of Abuse during the last 90 days?: No Positive Blood Alcohol level on Presentation? [PCS.BAL]: Yes Evidence of Increased Autonomic Activity (i.e. HR>120, tremor, sweating, agitation, nausea)?: No Result: 7
--- NOTE | 2021-09-13 14:19 | WOUNDCONS ---
- If Service Date Differs Date of service: 09/13/21 Time of Service: 11:40 Wound Initial Evaluation Narrative: Pt is well known to this facility and to myself. Has had a difficult wound history to include homelessness, incarceration, and significant wound infections to include MRSA, strep, e coli, and pasturella. Pt admitted for AMS and fever from a friend's home. Upon speaking with Jackson, he states that he has continued doing his dressing changes as often as he can depending on supply availability. However, due to lack of regular supplies it may be several days between changes. He also states that he has been living with a gentleman that does not have a very tidy environment. He has been sleeping on a loveseat lying on his back with his legs elevated over the armrest at the end of the seat which does apply some pressure to his lower legs. Pictures were taken of the left leg to show that the previous wounds from July have completely healed in the that leg. There is still 3+ edema in the left leg with a few tiny scabs on the anterior elder area. Otherwise the leg is benign. Ammonium Lactate lotion applied and allowed to dry. Leg wrapped with melissa wrap. Labs on this admission show gram+ cocci in blood cultures, positive urinalysis, pending urine culture, crp of 16.06, an initial wbc of 13.93, down to 9.99, and a procalc of 3.0. Fevers of up to 38.9. Last HgbA1c recorded of 6.4 with blood sugars in the 85-136 range, last albumin of 3.4. Review of history include: Hyperlipidemia, Hepititis C cirrhosis, hypertension, TIA, Opiod and ETOH abuse, arthritis, DM, and Neuropathy, and daily smoker. - Wound Right Lower Posterior Tib/Fib(lower leg) Wound Type: Statis Ulcer, Partial Thickness Wound General Appearance: Draining, Healing Well Wound Bed Greatest Portion: Red (Granulation) Wound Surrounding Tissue Appearance: Bright Red Percent of Wound Bed Granulated/Red: 100 Wound Length: 1.1 in (2.8 cm) Wound Width: 2.76 in (7 cm) Wound Depth: 0.08 in (2 cm) Wound Drainage Amount: Moderate Wound Drainage Odor: None/Absent Wound Drainage Description: Purulent Wound Topical Solution/Irrigant: Saline Irrigant, Other (Anasept) Additional Other Comments: Foot cleansed with debrisoft moistened with saline. Flakiness removed. Right Lower Anterior Tib/Fib(lower leg) Wound Type: Other (scabbed over areas), Partial Thickness Wound General Appearance: Draining Wound Bed Greatest Portion: Other (scabbed) Wound Bed Lesser Portion: Yellow (Slough) Wound Surrounding Tissue Appearance: Bright Red Wound Length: 0.39 in (1 cm) Wound Width: 2.76 in (7 cm) Wound Depth: 0.08 in (0.2 cm) Wound Drainage Amount: Minimal Wound Drainage Odor: None/Absent Wound Drainage Description: Purulent Wound Topical Solution/Irrigant: Saline Irrigant, Other (Anasept) - JERAMY Comment:: Deferred at this time due to discomfort in right lower extremity. - Pain Pain Level: 8 Pain Scale Used: Adult Pain Description: Burning, Numbness, Achy Pain Duration/Frequency: Constant Overall, Mr. Austin's legs are much improved since last seen in July,. However, the right leg remains very edematous with 4+ bright red edmea, hot, painful. Has several anterior scabs, some with purulent drainage underneath but most are healing well. Area cleansed with Anasept. Duoderm applied to area to allow for autolytic debridement. Posterior area cleanse with anasept cleanser. Silvadene cream applied to wound bed. Adaptic applied and covered with 4x4 gauze. Wrapped with conforming stretch kirsty and melissa wrap up to knee. - Photo Photo: Left leg: first 2 photos Right leg: bottom 4 photos - Treatment/Dressing Change Topicals/Ointments: Silvadene Cleanse With: Anasept Dressing Types: Adaptic (Contact Layer), Elastic Bandage, Gauze, Kerlix (Gauze Roll) (conforming stretch kirsty) Additional Other Comments: Pedal pulses 1+ present bilaterally, feet warm to touch. - Recomendation Recomendation:: Left Lower Extremity: 1. Wash left lower leg with soap and water daily. 2. Pat dry. 3. Apply Ammonium Lactate to foot and leg daily and allow to dry. 4. Apply melissa wrap starting at the toes and covering the heal with a 50% overlap up the leg. May add a second wrap to reach to just below the knee if needed. 5. Encourage pt to keep leg elevated as much as possible. Right Lower Extremity: Foot 1. Wash right foot with soap and water daily and pat dry. 2. Apply Ammonium lactate to foot and allow to dry. Anterior elder: Weekly 1. Cleanse anterior upper elder scabbed area with Anasept Cleanser and pat dry. 2. Apply duoderm to scabbed over area to allow for autolytic debridement. 3. Change weekly and prn. Posterior lower leg: Daily 1. Clean wound with Anasept cleanser and pat dry. 2. Apply a enrique thick layer of silvadene cream to the wound bed. 3. Cover with a contact layer such as Adaptic. 4. Cover with 4x4 gauze. 5. Wrap with conforming stretch kirsty starting at the toes and making sure all surfaces are covered including the heel. 6. Wrap with melissa bandage up to the knee. May need 2 bandages to reach the knee. 7. Encourage pt to keep leg elevated as much as possible and to offload the posterior lower leg by turning side to side while in bed and encourage sitting up in chair. Physcian/Nurse Practioner Notified: Yes Referrals: Physical Therapy Treatment Time - Time Total Time Spent with Patient: 90 minutes
[2021-09-13] MEDS: oxyCODONE 5 MG TAB PO (14:59)
[2021-09-13] MEDS: Lidocaine 5% Patch 1 PATCH TP (20:23)
[2021-09-13] MEDS: Atorvastatin 40 MG TAB PO (20:24)
[2021-09-13] MEDS: Lactulose 20 GM/30 ML CUP 45 GM PO (20:26)
[2021-09-14] VITALS (8 sets, daily range): BP systolic 91–104; BP diastolic 61–72; PULSE 86–103; RESP 18–20; TEMP 36.7–37.5; O2SAT 92–97
[2021-09-14] MEDS: CEFEPIME 2 GM in Normal Saline 100 ML IVPB (04:51)
[2021-09-14 07:16] LABS: Lactate 1.3 mmol/L (0.6-1.4)
[2021-09-14 07:38] LABS: HCT 27.9 % (40.0-50.0); HGB 8.4 g/dL (13.5-17.5); MCH 25.1 pg (27.0-33.0); MCHC 30.1 % (32.0-36.0); MCV 83 fL (80-95); Platelet Count 75 10^3/uL (130-400); RBC 3.35 10^6/uL (4.36-5.78); RDW 18.4 % (11.8-14.1); WBC 7.31 10^3/uL (4.4-10.8)
[2021-09-14 07:47] LABS: Anion Gap 10.1 mmol/L (3-11); BUN 36 mg/dL (7-18); CO2 22.9 mmol/L (21.0-32.0); CREATININE 2.4 mg/dL (0.70-1.30); Calcium 7.8 mg/dL (8.5-10.1); Chloride 97 mmol/L (98-107); Estimated GFR 27.85 (mL/min/1.73m2); Glucose 119 mg/dL (74-106); Magnesium 1.9 mg/dL (1.8-2.4); Potassium 3.8 mmol/L (3.5-5.1); Sodium 130 mmol/L (136-145)
[2021-09-14 07:54] LABS: Absolute Lymphocyte Count 0.29 10^3/uL (1.2-3.4); Absolute Monocyte Count 0.22 10^3/uL (0.1-0.8); Bands % 8
[2021-09-14 07:55] LABS: Anisocytosis 1+; Diff Comment Manual Differential; Macrocytosis 1+
[2021-09-14] MEDS: Lactulose 20 GM/30 ML CUP 45 GM PO (08:07)
[2021-09-14] MEDS: Silver sulfaDIAZINE 1% 25 GM TUBE TP (08:07)
[2021-09-14] MEDS: Lachydrin 12% LOTION 225 GM BTL TP (08:07)
[2021-09-14] MEDS: Normal Saline Flush 10 ML SYR IVP (08:08)
[2021-09-14] MEDS: Furosemide 40 MG/4 ML VIAL IVP (08:08)
[2021-09-14] MEDS: Insulin Aspart 300 UNITS/3 ML PEN SC ×4 (08:08→21:53)
[2021-09-14] MEDS: Tamsulosin 0.4 MG CAPCR 0.8 MG PO (08:09)
[2021-09-14] MEDS: Thiamine 100 MG TAB PO (08:09)
[2021-09-14] MEDS: Pantoprazole 20 MG TABCR PO (08:09)
[2021-09-14] MEDS: Multivitamin TAB 1 TAB PO (08:09)
[2021-09-14] MEDS: Aspirin E.C. 81 MG TABEC PO (08:09)
[2021-09-14] MEDS: traZODone 50 MG TAB PO (08:09)
[2021-09-14] MEDS: Magnesium Oxide 400 MG TAB PO ×2 (08:09→21:54)
[2021-09-14] MEDS: Ascorbic Acid 500 MG TAB PO ×2 (08:09→21:53)
[2021-09-14] MEDS: Ferrous Sulfate 325 MG TAB PO ×2 (08:09→21:54)
[2021-09-14] MEDS: Gabapentin 300 MG CAP 900 MG PO ×3 (08:09→21:54)
[2021-09-14] MEDS: Folic Acid 1 MG TAB PO (08:09)
[2021-09-14] MEDS: Spironolactone 50 MG TAB PO (08:09)
[2021-09-14] MEDS: DULoxetine 30 MG CAP 60 MG PO (08:10)
[2021-09-14] MEDS: Patch Removal 1 EACH TP (08:10)
[2021-09-14] MEDS: Nicotine 14 MG/24 HR PATCH TD (08:11)
[2021-09-14] MEDS: Enoxaparin 40 MG/0.4 ML SYR SC (09:58)
[2021-09-14 10:03] LABS: Anion Gap 8.5 mmol/L (3-11); BUN 36 mg/dL (7-18); CO2 24.5 mmol/L (21.0-32.0); CREATININE 2.3 mg/dL (0.70-1.30); Calcium 7.9 mg/dL (8.5-10.1); Chloride 99 mmol/L (98-107); Estimated GFR 29.25 (mL/min/1.73m2); Glucose 133 mg/dL (74-106); Potassium 3.9 mmol/L (3.5-5.1); Sodium 132 mmol/L (136-145)
[2021-09-14 12:18] LABS: Lab Add On Test DONE
[2021-09-14 12:29] LABS: Iron 35 ug/dL (65-175); Total Iron Binding Capacity 314 ug/dL (250-450); Transferrin Sat 11 % (20-55)
--- NOTE | 2021-09-14 12:30 | W.PM.PROGNOT ---
Date of Service Date of service: 09/14/21 Time of Service: 11:30 Assessment and Plan Assessment and plan (1) Sepsis: Status: Acute Assessment and plan: RLE diffuse cellulitis with ulceration. Blood cultures (x4 bottles) growing Group a strep (pyogenes). Change antibiotic to levaquin for less likelyhood of renal injury and need for level monitoring with vancomycin. Wound care consult obtained. CXR negative for PNA. (2) Bilateral lower leg cellulitis: Status: Acute Assessment and plan: As above (3) Acute on chronic diastolic (congestive) heart failure: Status: Acute Assessment and plan: Diuresed with IV lasix, monitoring I/Os and daily weights as well as kidney function. Creatinine increased from 1.2 to 2.4. Will stop lasix. (4) Chronic cutaneous venous stasis ulcer: Status: Chronic Assessment and plan: RLE at calf. As above (5) Continuous chronic alcoholism: Status: Chronic Assessment and plan: Continues to drink. EtOH level in the ED was 0. Not scoring on CIWA monitoring so will d/c. (6) Alcoholic cirrhosis of liver: Status: Chronic Assessment and plan: Ammonia level of 43 in the ED. Currently w/o mental status alteration. (7) Thrombocytopenia: Status: Acute Assessment and plan: In setting of EtOH abuse, sepsis. Initiated Lovenox Monitor plts with treatment of infection. Platelet count stable. (8) DVT prophylaxis: Status: Acute Assessment and plan: + thrombocytopenia, but at risk for DVT. Unable to apply mechanical DVT ppx due to LE infection Lovenox initiated. Will need to monitor platelets closely. (9) Discharge planning issues: Status: Acute Assessment and plan: DNR, but not DNI Homeless. PUI. (10) Urinary retention: Assessment and plan: Straight cath performed today after not voiding for a significant period of time, no pain reported by patient. Returned volume of 1600ml. Alejandro placed. He is taking Flomax 0.8mg daily. Add finesteride 5mg daily. Consult urology on . (11) Bacteremia due to Streptococcus: Status: Acute Assessment and plan: Strep pyogenes growing in all 4 blood culture bottles. Typically sensitive to vancomycin as well as levaquin. Change coverage to levaquin 750mg Q48H. Creatinine should improve now that post renal obstruction relieved with alejandro catheter and levaquin dose can then be adjusted as necessary. Subjective Subjective Patient reports: tolerating a regular diet and afebrile (Last temp elevation was at 1100 yesterday.); denies nausea or vomiting Interval history since last seen: c/o of pain all over, particularly his back. Exam Narrative Exam Narrative: Semi-supine cross-espinal in bed. Eating breakfast. Const General: cooperative Nutritional Appearance: average body habitus Orientation: alert and oriented x3 Eyes General: appearance normal, both eyes and all related structures Sclera: sclerae normal Resp Effort & Inspection: normal respiratory effort Auscultation: clear to auscultation bilaterally Cardio Rate: regular rate Rhythm: regular rhythm Heart Sounds: S1 normal, S2 normal and no murmurs GI Palpation: soft and nontender Auscultation: normal bowel sounds Skin General skin exam: erythema (Diffuse involving the RLE below the knee. ) Psych Speech and Movement: speech and movement normal Affect: normal affect (Irritable at times. ) Objective Last Vital Signs Temp 37.4 C 09/14/21 07:41 Pulse 88 09/14/21 07:41 Resp 18 09/14/21 07:41 BP 97/72 L 09/14/21 07:41 Pulse Ox 95 09/14/21 07:41 Laboratory Results - last 24 hr 09/14/21 09/14/21 09/14/21 07:03 07:18 07:18 WBC 7.31 RBC 3.35 L Hgb 8.4 L Hct 27.9 L MCV 83 MCH 25.1 L MCHC 30.1 L D RDW 18.4 H Plt Count 75 L MPV 12.0 H Immature Gran % 0.8 Neutrophils % 85.0 Band Neutrophils % 8 Lymphocytes % 4.0 Monocytes % 3.0 Eosinophils % 0.0 Basophils % 0.0 Nucleated RBC % 2.0 H Absolute Neutrophils 6.80 H Absolute Lymphocytes 0.29 L Absolute Monocytes 0.22 Absolute Eosinophils 0.00 Absolute Basophils 0.00 RBC Morphology See Below Anisocytosis 1+ Macrocytosis 1+ VBG Lactate 1.3 Sodium 130 L Potassium 3.8 Chloride 97 L Carbon Dioxide 22.9 Anion Gap 10.1 BUN 36 H Creatinine 2.4 H D Estimated GFR/1.73 m2 27.85 Glucose 119 H Calcium 7.8 L Magnesium 1.9 Iron TIBC Transferrin % Sat Add-On Test Request 09/14/21 09/14/21 09/14/21 09:50 09:50 09:50 WBC RBC Hgb Hct MCV MCH MCHC RDW Plt Count MPV Immature Gran % Neutrophils % Band Neutrophils % Lymphocytes % Monocytes % Eosinophils % Basophils % Nucleated RBC % Absolute Neutrophils Absolute Lymphocytes Absolute Monocytes Absolute Eosinophils Absolute Basophils RBC Morphology Anisocytosis Macrocytosis VBG Lactate Sodium 132 L Potassium 3.9 Chloride 99 Carbon Dioxide 24.5 Anion Gap 8.5 BUN 36 H Creatinine 2.3 H Estimated GFR/1.73 m2 29.25 Glucose 133 H Calcium 7.9 L Magnesium Iron 35 L TIBC 314 Transferrin % Sat 11 L Add-On Test Request DONE PAWSS Have you Been Recently Intoxicated or Drunk Within the Last 30 days?: Yes Have you Ever Experienced Previous Episodes of Alcohol Withdrawal?: Yes Have you ever Experienced Withdrawal Seizures?: Yes Have you ever Experienced Delirium Tremens(DT)s?: Yes Have you ever undergone Alcohol Rehabilitation Treatment (i.e, inpt ot outpatient treatment programs)?: Yes Have you ever Experienced Blackouts?: Yes Have you ever Combined Alcohol with other Downers within the last 90 days?: No Have you ever Combined Alcohol with any other Substance of Abuse during the last 90 days?: No Positive Blood Alcohol level on Presentation? [PCS.BAL]: Yes Evidence of Increased Autonomic Activity (i.e. HR>120, tremor, sweating, agitation, nausea)?: No Result: 7
[2021-09-14] MEDS: Finasteride 5 MG TAB PO (12:34)
--- NOTE | 2021-09-14 12:42 | PT.INTREAT ---
Date of service: 09/14/21 Time of Service: 11:40 PT Notes Visit Reasons: Sepsis due to Cellulitis LES Inpatient Physical Therapy Treatment Note [facility] Date: 09/14/2021 PRECAUTIONS: Fall and standard SUBJECTIVE: Stated he has to have a bowel movement once up in chair. Indicated I did not need to hold his belt when walking. OBJECTIVE: PAIN: Complaining of left shoulder pain but wanted to do all exercises with left as well as right. BED MOBILITY/TRANSFERS Supine-sit: mod assist of one Sit-stand: CGA Stand-sit: CGA GAIT Assistive Device: FWW Weight bearing: Full Assist: CGA due to patient being unpredictable with movement, poor judgment making him unsteady at times. Distance: 10ft x 1 bed to chair and 15ft x 2 recliner to/from restroom Deviation: Tends to not use walker correctly leaving it behind or standing to the side of it instead of inside it. Able to sit on toilet for 10 minutes having bowel movement. Tended to lean back for support as needed during this time. Did attempt to wipe himself, but did need assist to finish cleaning. THEREX: Performed seated LAQs, seated marching, seated hip abd/adduction, bicep curls, horizontal shoulder abd/adduction and shoudler flexion from lap to approximately 70 degrees for 10 reps each. Worked on having patient sit on edge of bed for balance x 3 minutes. This was noted to be difficult for him. Tends to loose balance backward several times. STAIRS: Hold on stair ambulation for now due to poor balance ASSESSMENT: Tolerated session fair. Tends to be very demanding. PLAN: Continue to focus on improved balance, ambulation and strengthening of core, UEs and LEs as able to tolerate. TREATMENT CODE/TIME: 36811 and 46098, 11:40 to 12:15 (35 minutes)
[2021-09-14] MEDS: levoFLOXacin 750 MG/150 ML BAG 100 MG IVPB (14:52)
[2021-09-14] MEDS: Atorvastatin 40 MG TAB PO (21:54)
[2021-09-14] MEDS: Lidocaine 5% Patch 1 PATCH TP (21:56)
--- NOTE | 2021-09-15 04:12 | NUR.NOTE ---
Nursing Note: Pt is rude and screaming to this nurse. Patient is on diabetic diet and keep on requesting ice cream per other staff they've already given him 2 ice creams at 0100 and had 2 custard before that. Patient slept after having ice creams, woke up at 0410 and requested ice cream again this RN educated pt about his diet and blood sugar but pt screamed i dont give a shit, give me my fucking ice cream This RN gave the patient one popsicle because the other ice cream the he likes is unavailable. Patient dint like it and screamed to this nurse i want two more pospsicle now! This RN told the patient that we need to wait for breakfast before he can have another ice cream.
[2021-09-15 04:19] VITALS: BP 105/69; PULSE 92; RESP 22; TEMP 36.6; O2SAT 91
--- NOTE | 2021-09-15 05:18 | NUR.NOTE ---
PT RANG FOR ASSISTANCE EVERY 10 MINS ALL EVENING 7p TO 7a FOR EITHER FOOD OR JUST TO MOVE A CUP ON HIS TABLE. PT IS VERY RUDE , LOUD AND AND INSULTING. Nursing Note:
[2021-09-15] MEDS: Normal Saline Flush 10 ML SYR IVP ×2 (05:45→16:10)
[2021-09-15 07:29] LABS: HCT 27.1 % (40.0-50.0); HGB 8.1 g/dL (13.5-17.5); MCH 24.7 pg (27.0-33.0); MCHC 29.9 % (32.0-36.0); MCV 83 fL (80-95); MPV 11.5 fL (8.0-11.0); RBC 3.28 10^6/uL (4.36-5.78); RDW 18.2 % (11.8-14.1); RDW-SD 54.6 fL; WBC 3.49 10^3/uL (4.4-10.8)
[2021-09-15 07:42] LABS: Anion Gap 6.5 mmol/L (3-11); BUN 25 mg/dL (7-18); CO2 25.5 mmol/L (21.0-32.0); CREATININE 1.4 mg/dL (0.70-1.30); Calcium 8.1 mg/dL (8.5-10.1); Chloride 101 mmol/L (98-107); Estimated GFR 51.87 (mL/min/1.73m2); Glucose 122 mg/dL (74-106); Sodium 133 mmol/L (136-145)
[2021-09-15 07:56] LABS: Platelet Count 72 10^3/uL (130-400)
[2021-09-15] MEDS: Nicotine 14 MG/24 HR PATCH TD (08:57)
[2021-09-15] MEDS: Gabapentin 300 MG CAP 900 MG PO ×3 (08:57→21:17)
[2021-09-15] MEDS: Aspirin E.C. 81 MG TABEC PO (08:57)
[2021-09-15] MEDS: DULoxetine 30 MG CAP 60 MG PO (08:57)
[2021-09-15] MEDS: Tamsulosin 0.4 MG CAPCR 0.8 MG PO (08:57)
[2021-09-15] MEDS: Multivitamin TAB 1 TAB PO (08:57)
[2021-09-15] MEDS: traZODone 50 MG TAB PO (08:57)
[2021-09-15] MEDS: Finasteride 5 MG TAB PO (08:58)
[2021-09-15] MEDS: Ascorbic Acid 500 MG TAB PO ×2 (08:58→21:18)
[2021-09-15] MEDS: Folic Acid 1 MG TAB PO (08:58)
[2021-09-15] MEDS: Pantoprazole 20 MG TABCR PO (08:58)
[2021-09-15] MEDS: Thiamine 100 MG TAB PO (08:58)
[2021-09-15] MEDS: Magnesium Oxide 400 MG TAB PO ×2 (08:58→21:15)
[2021-09-15] MEDS: Ferrous Sulfate 325 MG TAB PO ×2 (08:58→21:19)
[2021-09-15] MEDS: Spironolactone 50 MG TAB PO (08:58)
[2021-09-15] MEDS: Silver sulfaDIAZINE 1% 25 GM TUBE TP (08:58)
[2021-09-15] MEDS: Lachydrin 12% LOTION 225 GM BTL TP (08:58)
[2021-09-15] MEDS: Patch Removal 1 EACH TP (08:59)
[2021-09-15 09:04] VITALS: BP 100/70; PULSE 85; RESP 16; TEMP 36.6; O2SAT 97
[2021-09-15 12:05] VITALS: BP 112/61; PULSE 71; RESP 18; TEMP 36.8; O2SAT 96
[2021-09-15] MEDS: Insulin Aspart 300 UNITS/3 ML PEN SC ×3 (12:22→21:19)
--- NOTE | 2021-09-15 13:49 | PT.INTREAT ---
PT Notes Visit Reasons: Sepsis due to Cellulitis LES PRECAUTIONS: Fall and standard SUBJECTIVE: Pt reports that he has been waiting for therapy today. Pt agreeable to participating with therapy. OBJECTIVE: ? PAIN: No complaint about pain offered for this session. ? BED MOBILITY/TRANSFERS? Sit-stand: SBA? Stand-sit: SBA? GAIT? Assistive Device: FWW? Weight bearing: Full Assist: CGA?for safety since pt has tendency to stand too far from FWW. ? Distance:?100'? Deviation: pt continues with not using walker correctly with pt standing too far from FWW or to close to the side.? THEREX: pt engaged with seated BLE AROM all planes [id number] each, seated BUE AROM all planes [id number] each with pt requiring verbal and visual cue for guidance and continuity with task.? ASSESSMENT: Pt tolerated activity well, with pt showing good FWW usage on the way back to his room, as well as good effort during therapeutic exercises with pt reporting pain on R shoulder movement beyond shoulder level. PLAN: Continue to focus on improved balance, ambulation and strengthening of core, UEs and LEs as able to tolerate. TREATMENT CODE/TIME: 57817 and 35628, 1:10 to 1:50 (40 minutes)
[2021-09-15] MEDS: levoFLOXacin 750 MG/150 ML BAG 100 MG IVPB (16:10)
[2021-09-15] MEDS: Normal Saline 500 ML 30 ML IV (16:10)
--- NOTE | 2021-09-15 16:56 | W.PM.PROGNOT ---
Date of Service Date of service: 09/15/21 Time of Service: 15:56 Assessment and Plan Assessment and plan (1) Sepsis: Status: Acute Assessment and plan: RLE diffuse cellulitis with ulceration. Blood cultures (x4 bottles) growing Group a strep (pyogenes). Change antibiotic to levaquin for less likelyhood of renal injury and need for level monitoring with vancomycin. Wound care consult obtained. CXR negative for PNA. Possible d/c on oral Levaquin tomorrow. (2) Bilateral lower leg cellulitis: Status: Acute Assessment and plan: As above (3) Acute on chronic diastolic (congestive) heart failure: Status: Acute Assessment and plan: Diuresed with IV lasix, monitoring I/Os and daily weights as well as kidney function. Creatinine increased from 1.2 to 2.4; likely d/t post-renal obstruction. Alejandro was placed and creatinine improved to 1.4. Alejandro now d/c'd (4) Chronic cutaneous venous stasis ulcer: Status: Chronic Assessment and plan: RLE at calf. As above (5) Continuous chronic alcoholism: Status: Chronic Assessment and plan: Continues to drink. EtOH level in the ED was 0. Not scoring on CIWA monitoring so was d/c'd. (6) Alcoholic cirrhosis of liver: Status: Chronic Assessment and plan: Ammonia level of 43 in the ED. Conts to exhibit normal mental status. (7) Thrombocytopenia: Status: Acute Assessment and plan: In setting of EtOH abuse, sepsis. Initiated Lovenox Monitor plts with treatment of infection. Platelet count stable. (8) DVT prophylaxis: Status: Acute Assessment and plan: + thrombocytopenia, but at risk for DVT. Unable to apply mechanical DVT ppx due to LE infection Lovenox initiated. Will need to monitor platelets closely. (9) Discharge planning issues: Status: Acute Assessment and plan: DNR, but not DNI Homeless. PUI. (10) Urinary retention: Assessment and plan: Straight cath performed on 09/14 after not voiding for a significant period of time, no pain reported by patient. Returned volume of 1600ml. Alejandro placed. He is taking Flomax 0.8mg daily. Added finesteride 5mg daily. Alejandro d/c'd and voiding trial ordered. (11) Bacteremia due to Streptococcus: Status: Acute Assessment and plan: Strep pyogenes growing in all 4 blood culture bottles. Typically sensitive to vancomycin as well as levaquin. Change coverage to levaquin 750mg Q48H. Creatinine should improve now that post renal obstruction relieved with alejandro catheter and levaquin dose can then be adjusted as necessary. Subjective Subjective Patient reports: no new complaints, no bowel movement and afebrile; denies nausea, vomiting or shortness of breath Interval history since last seen: Ongoing generalized aches/pains. Exam Narrative Exam Narrative: Semi-supine cross-espinal in bed. Eating breakfast. Const General: cooperative Nutritional Appearance: average body habitus Orientation: alert and oriented x3 Eyes General: appearance normal, both eyes and all related structures Sclera: sclerae normal Resp Effort & Inspection: normal respiratory effort Auscultation: clear to auscultation bilaterally Cardio Rate: regular rate Rhythm: regular rhythm Heart Sounds: S1 normal, S2 normal and no murmurs GI Palpation: soft and nontender Auscultation: normal bowel sounds Skin General skin exam: other (BLE bandages/wraps in place below the knees. ) Psych Speech and Movement: speech and movement normal Affect: normal affect (Irritable at times. ) Objective Last Vital Signs Temp 36.6 C 09/15/21 09:04 Pulse 85 09/15/21 09:04 Resp 16 09/15/21 09:04 BP 100/70 09/15/21 09:04 Pulse Ox 97 09/15/21 09:04 Laboratory Results - last 24 hr 09/15/21 09/15/21 06:57 06:57 WBC 3.49 L RBC 3.28 L Hgb 8.1 L Hct 27.1 L MCV 83 MCH 24.7 L MCHC 29.9 L RDW 18.2 H Plt Count 72 L MPV 11.5 H Sodium 133 L Potassium 4.0 Chloride 101 Carbon Dioxide 25.5 Anion Gap 6.5 BUN 25 H Creatinine 1.4 H Estimated GFR/1.73 m2 51.87 Glucose 122 H Calcium 8.1 L PAWSS Have you Been Recently Intoxicated or Drunk Within the Last 30 days?: Yes Have you Ever Experienced Previous Episodes of Alcohol Withdrawal?: Yes Have you ever Experienced Withdrawal Seizures?: Yes Have you ever Experienced Delirium Tremens(DT)s?: Yes Have you ever undergone Alcohol Rehabilitation Treatment (i.e, inpt ot outpatient treatment programs)?: Yes Have you ever Experienced Blackouts?: Yes Have you ever Combined Alcohol with other Downers within the last 90 days?: No Have you ever Combined Alcohol with any other Substance of Abuse during the last 90 days?: No Positive Blood Alcohol level on Presentation? [PCS.BAL]: Yes Evidence of Increased Autonomic Activity (i.e. HR>120, tremor, sweating, agitation, nausea)?: No Result: 7
[2021-09-15 19:44] VITALS: BP 104/71; PULSE 77; RESP 18; TEMP 35.6; O2SAT 98
[2021-09-15] MEDS: Atorvastatin 40 MG TAB PO (21:17)
[2021-09-15] MEDS: Lidocaine 5% Patch 1 PATCH TP (21:20)
[2021-09-15 22:59] VITALS: BP 110/75; PULSE 75; RESP 20; TEMP 36.8; O2SAT 100
--- NOTE | 2021-09-16 03:39 | NUR.NOTE ---
pt refusing to listen when trying to be educated from what java lead engineer was informed when starting shift. STEREOPTICIAN has made it very clear to pt he can not have another snack till 7 am. STEREOPTICIAN was informed from day shift that pt is only allowed 1 snack from 7pm to 7am. pt not agreeable to this. Nursing Note:
[2021-09-16 08:13] VITALS: BP 116/79; PULSE 82; RESP 18; TEMP 35.7; O2SAT 97
[2021-09-16] MEDS: Nicotine 14 MG/24 HR PATCH TD (08:20)
[2021-09-16] MEDS: Polyethylene Glycol 3350 17 GM PACKET PO (08:20)
[2021-09-16] MEDS: Pantoprazole 20 MG TABCR PO (08:21)
[2021-09-16] MEDS: Aspirin E.C. 81 MG TABEC PO (08:21)
[2021-09-16] MEDS: traZODone 50 MG TAB PO (08:21)
[2021-09-16] MEDS: Thiamine 100 MG TAB PO (08:21)
[2021-09-16] MEDS: Gabapentin 300 MG CAP 900 MG PO ×2 (08:21→13:17)
[2021-09-16] MEDS: Tamsulosin 0.4 MG CAPCR 0.8 MG PO (08:21)
[2021-09-16] MEDS: Multivitamin TAB 1 TAB PO (08:21)
[2021-09-16] MEDS: DULoxetine 30 MG CAP 60 MG PO (08:21)
[2021-09-16] MEDS: Finasteride 5 MG TAB PO (08:21)
[2021-09-16] MEDS: Ferrous Sulfate 325 MG TAB PO (08:22)
[2021-09-16] MEDS: Spironolactone 50 MG TAB PO (08:22)
[2021-09-16] MEDS: Folic Acid 1 MG TAB PO (08:22)
[2021-09-16] MEDS: Ascorbic Acid 500 MG TAB PO (08:22)
[2021-09-16] MEDS: Magnesium Oxide 400 MG TAB PO (08:22)
[2021-09-16] MEDS: Silver sulfaDIAZINE 1% 25 GM TUBE TP (08:26)
[2021-09-16] MEDS: Lachydrin 12% LOTION 225 GM BTL TP (08:26)
--- NOTE | 2021-09-16 10:14 | CMPROGNOTE_ITS ---
- If Service Date Differs Date of service: 09/16/21 Time of Service: 10:14 Care Management Progress Note S/O: A: Jackson is a 61 year old man admitted on 09/12/21 with sepsis and cellulitis P: Anticipate, Jackson will discharge back [facility] [place] [facility] when he is medically ready. He will likely transport via [facility]. CM will continue to support Jackson and his discharge planning needs. Jackson understands if he needs Emergency housing at the time of his discharge he should call [phone].
--- NOTE | 2021-09-16 11:28 | PT.INTREAT ---
Date of service: 09/16/21 Time of Service: 10:20 PT Notes Visit Reasons: Sepsis due to Cellulitis LES Inpatient Physical Therapy Treatment Note [facility] Date: 09/16/2021 PRECAUTIONS: Fall, WBAT B SUBJECTIVE: Jackson is agreeable to participating in PT. He states that he is numb from his shoulders to his feet today. He reports that his current living conditions are poor but that he has no where else to go. He also states that he needs to leave today to get his check in the mail because he has no one to go get it for him. OBJECTIVE: PAIN: No c/o pain because my body is numb BED MOBILITY/TRANSFERS Supine-sit: I Sit-supine: I Sit-stand: S Stand-sit: S GAIT Assistive Device: FWW Weight bearing: WBAT B Assist: SBA Distance: 120' Deviation: Wide ELISA, anteroflexed trunk posture, minimal knee flexion bilaterally (per patient: baseline gait mechanics) THEREX: Patient was instructed in a LE strengthening and stabilization program, completed in a supine position, to include: ankle pumps, heels slides, glute sets and quad sets. ASSESSMENT: Patient demonstrates poor gait mechanics with use of FWW, which is reportedly his baseline due to chronic spinal issues. He demonstrates independence with bed mobility at this time. PLAN: Continue with global strengthening and gait training for improved mobility and activity tolerance. TREATMENT CODE/TIME: 30 minutes; [id number], [id number] (10:20)
--- NOTE | 2021-09-16 11:31 | UCONE_ITS ---
Assessment and Plan Assessment and plan (1) Urinary retention: Assessment and plan: The recommended treatment is to teach the patient to perform self- catheterization. The fact that he has had large volumes of urine at the time of catheterization (between 1000 and 2000 cc of urine dating back years) make it unlikely that would be able to empty his bladder even with a surgery such as a TURP. I do not hold out much hope that he will be compliant in doing CIC. Likewise, I certainly would not send him home with an indwelling catheter given his unreliability. Unless he has a change of heart, I suspect that we will need to remove his catheter before he is discharged and take our chances that he will not develop obstructive uropathy while on maximal medical therapy. History of Present Illness History of Present Illness Chief Complaint: Incomplete bladder emptying Narrative: This is a 61-year-old gentleman who has chronic polysubstance abuse. He is currently hospitalized with lower extremity ulcers and sepsis. I have been asked to see him as he has been found to have high bladder volumes and has required catheterization. On 1 occasion, his serum creatinine increased and normalized after the catheter was placed. His serum creatinine is now back to baseline. He does have a history of urinary incontinence. During his other hospital admissions, he has had high bladder volumes up to about 2000 cc at a time. He has been on tamsulosin, but we are not certain if he takes the medication reliably. Since being in the hospital here, his dose of tamsulosin has been increased and he was started on finasteride. I did not find any documentation or history of a prior urinary tract infection PFSH All Active Problems Venous stasis ulcer (Acute) Bacteremia due to Streptococcus (Acute) Acute on chronic diastolic (congestive) heart failure (Acute) Thrombocytopenia (Acute) Chronic pain (Chronic) Generalized weakness (Acute) Bilateral leg weakness (Acute) Chronic wound of extremity (Acute) Bilateral leg weakness (Acute) Chronic back pain (Acute) Chronic leg pain (Acute) Chronic neck pain (Acute) Chronic back pain (Acute) Numbness (Acute) Polymicrobial bacterial infection (Acute) Constipation (Chronic) MRSA cellulitis (Acute) Chronic anemia (Acute) Pressure ulcers of skin of multiple topographic sites (Acute) Chronic cutaneous venous stasis ulcer (Chronic) Chronic venous stasis dermatitis of both lower extremities (Acute) Polysubstance abuse (Acute) Discharge planning issues (Acute) GERD (gastroesophageal reflux disease) (Chronic) Alcoholic cirrhosis of liver (Chronic) Continuous chronic alcoholism (Chronic 01/15/13) Medical History Acute alcohol intoxication Alcohol dependence Anemia Arthritis Bilateral leg edema Chronic pain Cirrhosis of liver Diabetic peripheral neuropathy Encephalopathy, hepatic Hepatitis C Hyperlipidemia Knee pain, right TIA (transient ischemic attack) TIA (transient ischemic attack) Ulnar neuropathy Urinary retention Surgical History H/O cervical spine surgery Hx of total knee arthroplasty Social History Smoking/Tobacco Use Status: Current every day Tobacco Type: cigarettes and e-cigarettes Smoking risk assessment performed?: Yes Alcohol Intake: current Alcohol Intake frequency: 3 or more drinks per day Alcohol type: beer, wine and hard liquor Drug use: Occasionally Substance use type: marijuana Housing: apartment Number of Children: 3 What type of physical activity do you participate in: walking Do you feel safe at home: Yes Do you feel safe in your relationship?: Yes Exam Narrative Exam Narrative: He appears chronically ill He is awake and alert I reviewed his imaging studies that were done through the years. He had a distended bladder with no hydronephrosis on CT back in 2019. Results Last Vital Signs Temp 35.7 C L 09/16/21 08:13 Pulse 82 09/16/21 08:13 Resp 18 09/16/21 08:13 BP 116/79 09/16/21 08:13 Pulse Ox 97 09/16/21 08:13 Labs Result diagrams: 09/15/21 06:57 09/15/21 06:57
[2021-09-16 11:53] VITALS: BP 104/69; PULSE 77; RESP 17; TEMP 36.3; O2SAT 97
[2021-09-16] MEDS: Patch Removal 1 EACH TP (11:59)
[2021-09-16 14:33] VITALS: BP 113/76; PULSE 76; RESP 19; TEMP 35.9; O2SAT 97
--- NOTE | 2021-09-16 14:53 | DSE_ITS ---
Date of service: 09/16/21 Time of Service: 13:53 DS: Diagnosis Discharge Diagnosis (1) Urinary retention: Discharge Plan Disposition Patient Disposition: HOME Condition: Improving Discharge Details Reason For Visit: Sepsis due to Cellulitis LES Admit Date/Time: 09/12/21 17:42 Admit Provider: Brielle Byers Attending Provider: Brielle Byers Primary Care Provider: Sushil Figueroa [facility] Course Hospital Course: Mr Austin is a 61 year old male with PMHx of BLE venous stasis infected ulcers and cellulitis, NIDDM2, alcohol abuse and alcoholic cirrhosis, who was brought to [facility] ED by ambulance after the neighbors called 911 for AMS. His clinical evaluation in the ED reveals a febrile patient with leucocytosis and evidence of BLE cellulitis. As far as his altered mental status, he is being unusually polite. He was initiated on empiric vancomycin. Hospitalist admission was requested. When hospitalist evaluated Mr Austin, he stated that he is not sure how long he has been sick, that his legs have been bothering him about the same amount as usual. He did report being short of breath for 3-4 days, denied a cough or exposures to anyone with COVID-19. Vancomycin and Cefepime initiated. Wound care consulted. Overall, his legs did not show the severity of infection and ulceration compared to his previous admission. His WBC count normalized readily and the erythema, most prominent on the RLE, improved significantly. Blood cultures grew strep pyogenes (Group A) in all 4 bottles. His antibiotic coverage was changed to IV levaquin 750 mg q24 hours. He will continue with 7 more doses as an outpt. He did exhibit urinary retention requiring a alejandro catheter after a bladder scan revealed 1600ml. A alejandro trial was attempted, but he required recatheterization with a alejandro. Urology, Dr Smith consulted, and he recommended self- catheterization. The patient likely could not manage a alejandro catheter given his tenuous living arrangements. He will d/c to a friends trailer where he has most recently resided. F/U with PCP in 1 week. Home Meds and New Rx's Prescriptions: New levofloxacin 750 mg tablet 750 mg PO DAILY Qty: 7 0RF Rx Instructions: First dose on 09/17/21 Continued aspirin [Aspir-81] 81 MG tablet,delayed release (DR/EC) 81 mg PO DAILY tamsulosin [Flomax] 0.4 mg capsule 0.8 mg PO DAILY spironolactone 50 mg tablet 50 mg PO DAILY duloxetine [Cymbalta] 30 mg capsule,delayed release(DR/EC) 60 mg PO DAILY trazodone 50 mg tablet 50 mg PO DAILY furosemide 20 mg tablet 40 mg PO BID epinephrine 0.3 MG/SYR auto-injector 0.3 mg IM DIRECTED PRN Label Comments: has never used 05/01/16 07/09/16- Pt states he had 2 epi pens a long time ago but doesnt know where they are atorvastatin [Lipitor] 40 MG tablet 40 mg PO QPM lactulose [Constulose] 10 GM/15 ML solution 45 gm PO TID Label Comments: Pt states hes supposed to take 45gm TID, but has not been taking d/t diarrhea lidocaine [Lidoderm] 1 PATCH patch 1 patch Topical Q24H Qty: 4 0RF pantoprazole [Protonix] 20 mg Tablet,Delayed Release (Dr/Ec) 20 mg PO DAILY polyethylene glycol 3350 [Miralax] 17 gram/dose powder 17 g PO DAILY PRN PRN Label Comments: Take 17 gram by mouth as directed as needed magnesium oxide 400 MG tablet 400 mg PO BID multivitamin 1 EACH capsule 1 ea PO DAILY thiamine mononitrate (vit B1) [Vitamin B-1 (mononitrate)] 100 MG tablet 100 mg PO DAILY ammonium lactate 12 % Lotion 1 applic topical DAILY Qty: 400 0RF ascorbic acid (vitamin C) [Vitamin C] 500 mg Tablet 500 mg PO BID Qty: 60 0RF Eucerin Cream 1 applic topical PRN PRNQty: 454 0RF ferrous sulfate 325 mg (65 mg iron) Tablet 325 mg PO BID Qty: 60 0RF gabapentin 300 mg Capsule 900 mg PO TID Qty: 90 0RF morphine [MS Contin] 30 mg Tablet Extended Release 30 mg PO BID Qty: 20 0RF silver sulfadiazine [SSD] 1 % Cream 1 applic topical DAILY Qty: 85 0RF Discontinued amoxicillin-pot clavulanate 875-125 mg Tablet 1 tab PO BID Qty: 14 0RF sulfamethoxazole-trimethoprim 800-160 mg Tablet 1 tab PO BID Qty: 14 0RF Discharge Instructions Instructions: How to Catheterize Yourself (Man) (GEN) Additional Instructions: - Treatment/Dressing Change Topicals/Ointments:?Silvadene Cleanse With:?Anasept Dressing Types:?Adaptic (Contact Layer), Elastic Bandage, Gauze, Kerlix (Gauze Roll) (conforming stretch kirsty) Additional Other Comments:?Pedal pulses 1+ present bilaterally, feet warm to touch. - Recomendation Recomendation:: Left Lower Extremity:? 1. Wash left lower leg with soap and water?daily. 2. Pat dry. 3. Apply Ammonium Lactate to foot and leg daily and allow to dry. 4. Apply melissa wrap starting at the toes and covering the heal with a 50% overlap up the leg. May add a second wrap to reach to just below the knee if needed. 5. Encourage pt to keep leg elevated as much as possible. Right Lower Extremity: Foot 1. Wash right foot with soap and water?daily?and pat dry. 2. Apply Ammonium lactate to foot and allow to dry. Anterior elder:?Weekly 1. Cleanse anterior upper elder scabbed area with Anasept Cleanser and pat dry. 2. Apply duoderm to scabbed over area to allow for autolytic debridement. 3. Change weekly and prn. Posterior lower leg:?Daily 1. Clean wound with Anasept cleanser and pat dry. 2. Apply a enrique thick layer of silvadene cream to the wound bed. 3. Cover with a contact layer such as Adaptic. 4. Cover with 4x4 gauze. 5. Wrap with conforming stretch kirsty starting at the toes and making sure all surfaces are covered including the heel. 6. Wrap with melissa bandage up to the knee. May need 2 bandages to reach the knee. 7. Encourage pt to keep leg elevated as much as possible and to offload the posterior lower leg by turning side to side while in bed and encourage sitting up in chair. Stand Alone Forms: Nursing Discharge Form Referrals: Sushil Figueroa [Primary Care Provider] - 09/17/21 11:20 am Activity:: Activity as Tolerated Equipment/Supplies:: self-catheterization supp Diet:: As Tolerated Discharge Orders Discharge Orders: Discharge Order (Routine); Ordered 09/16/21 Ordered By: Danny Tran Discharge Data Discharge Date/Time-TO BE ENTERED AT DEPARTURE: 09/16/21 15:06 DS: Summary Time Spent with Patient providing and/or coordinating discharge services: Greater than 30 minutes Status at Discharge Functional status at discharge: uses cane/walker Overall status at discharge: patient is progressing back to baseline Mental Status: mental status grossly normal Speech and Movement: speech clear Mood: irritable mood Affect: irritable affect Exam Psych Mental Status: mental status grossly normal Speech and Movement: speech clear Mood: irritable mood Affect: irritable affect DS: Data Vitals/I&O Vitals and I&O: Vital Signs Temperature 35.9 C L 09/16/21 14:33 Temperature Source Tympanic 09/16/21 14:33 Pulse 76 09/16/21 14:33 Pulse Rhythm Regular 09/16/21 08:42 Respiratory Rate 19 09/16/21 14:33 Respiratory Effort Non-Labored 09/16/21 08:42 Respiratory Depth Normal 09/16/21 08:42 Respiratory Pattern Normal 09/16/21 08:42 Blood Pressure 113/76 09/16/21 14:33 Blood Pressure Position Supine 09/12/21 16:00 Pulse Oximetry 97 09/16/21 14:33 Oxygen Delivery Method Room Air 09/16/21 14:33 Oxygen Flow Rate 0 09/16/21 14:33 Pain Level 5 09/16/21 14:33 Comment 09/16/21 03:37 Intake & Output 09/15/21 09/16/21 09/16/21 23:59 11:59 23:59 Intake Total 562 / 562 Output Total 1650 / 2300 2475 / 3025 550 / 3025 Balance -1088 / -1738 -2475 / -3025 -550 / -3025 Intake: IV 202 / 202 Oral 360 / 360 Output: Urine 1650 / 2300 2475 / 3025 550 / 3025 Other: Urine Color Dark Parisa Yellow Yellow Urine Appearance Clear Clear Clear Comment Pt agreed to have a alejandro catheter instead of straight cath. Stool Size Smear Data Completed and Pending Labs on day of discharge: Preliminary micro results at discharge 09/14/21 07:05 Blood Culture - Preliminary Blood NO GROWTH 48 HOURS 09/14/21 07:18 Blood Culture - Preliminary Blood NO GROWTH 48 HOURS PFSH All Active Problems Bacteremia due to Streptococcus (Acute) Acute on chronic diastolic (congestive) heart failure (Acute) Discharge planning issues (Acute) DVT prophylaxis (Acute) Thrombocytopenia (Acute) Sepsis (Acute) Bilateral lower leg cellulitis (Acute) Acute exacerbation of chronic low back pain (Acute) Open leg wound (Acute) Chronic pain (Chronic) Generalized weakness (Acute) Bilateral leg weakness (Acute) Chronic wound of extremity (Acute) Bilateral leg weakness (Acute) Chronic back pain (Acute) Chronic leg pain (Acute) Chronic neck pain (Acute) Chronic back pain (Acute) Numbness (Acute) Polymicrobial bacterial infection (Acute) Constipation (Chronic) MRSA cellulitis (Acute) Chronic anemia (Acute) Pressure ulcers of skin of multiple topographic sites (Acute) Chronic cutaneous venous stasis ulcer (Chronic) Chronic venous stasis dermatitis of both lower extremities (Acute) Polysubstance abuse (Acute) Discharge planning issues (Acute) GERD (gastroesophageal reflux disease) (Chronic) Alcoholic cirrhosis of liver (Chronic) Continuous chronic alcoholism (Chronic 01/15/13) Medical History Acute alcohol intoxication Alcohol dependence Anemia Arthritis Bilateral leg edema Chronic pain Cirrhosis of liver Diabetic peripheral neuropathy Encephalopathy, hepatic Hepatitis C Hyperlipidemia Knee pain, right TIA (transient ischemic attack) TIA (transient ischemic attack) Ulnar neuropathy Urinary retention Surgical History H/O cervical spine surgery Hx of total knee arthroplasty Social History Smoking/Tobacco Use Status: Current every day Tobacco Type: cigarettes and e- cigarettes Smoking risk assessment performed?: Yes Alcohol Intake: current Alcohol Intake frequency: 3 or more drinks per day Alcohol type: beer, wine and hard liquor Drug use: Occasionally Substance use type: marijuana Housing: apartment Number of Children: 3 What type of physical activity do you participate in: walking Do you feel safe at home: Yes Do you feel safe in your relationship?: Yes
--- NOTE | 2021-09-16 16:15 | CMDISCH_ITS ---
- If Service Date Differs Date of service: 09/16/21 Time of Service: 16:15 LACE Index Scoring Tool - Questions: Length of Stay (in days): 4 - 6 Acuity (Admit via E.D.?): Yes Comorbidities: Cerebrovascular Disease, Diabetes w/o Complication, Liver or Renal Disease E.D. Visits: 12 - Answers: Total Score: 16 Risk of Readmission: High Risk Care Management Discharge Reason for Hospitalization: Sepsis due to cellulites BLE's Discharge Plan: Jackson will be discharged home with no new services. He has new orders to self-cath 4 times a day. Nursing provided him with a few catheters and BHUMIKA was able to obtain an additional supply from Urology. BHUMIKA also placed an order for 60 catheters from [address] [place] [address] which will be overnight shipped to Jackson's house. He will follow up with his community providers and plan of care and transport via [facility] coordinated by BHUMIKA. Patient/Family Education Needs: Self catheterization technique, review of discharge instructions, follow up plan, discuss Ask Me Three.
== END 2021-09-16 16:25 | DRG 871 ==
LOC: ER 18:07 → MS 18:27
PROVIDERS: Family Medicine; Admitting Provider Internal Medicine; Emergency Provider Emergency Medicine; PCP Family Medicine; Visit Provider Internal Medicine
DX: A40.0 Sepsis due to streptococcus, group A (principal); I50.33 Acute on chronic diastolic (congestive) heart failure; L03.115 Cellulitis of right lower limb; L03.116 Cellulitis of left lower limb; L97.211 Non-pressure chronic ulcer of right calf limited to breakdown of skin; F10.20 Alcohol dependence, uncomplicated; K70.30 Alcoholic cirrhosis of liver without ascites; F19.10 Other psychoactive substance abuse, uncomplicated; E11.42 Type 2 diabetes mellitus with diabetic polyneuropathy; D64.9 Anemia, unspecified; D69.59 Other secondary thrombocytopenia; Z66 Do not resuscitate; Z59.00 Homelessness unspecified; I87.2 Venous insufficiency (chronic) (peripheral); G89.29 Other chronic pain; M54.50 Low back pain, unspecified; R53.1 Weakness; M54.2 Cervicalgia; K59.09 Other constipation; K21.9 Gastro-esophageal reflux disease without esophagitis; Z86.73 Personal history of transient ischemic attack (TIA), and cerebral infarction without residual deficits; E78.5 Hyperlipidemia, unspecified; F17.210 Nicotine dependence, cigarettes, uncomplicated; R33.9 Retention of urine, unspecified; Z86.19 Personal history of other infectious and parasitic diseases
CPT/HCPCS: 36415; 80048; 80053; 84145; 85027; 87040; 87077; 87081; 87635; 93005; 96361; 96365; 97110; 97162; 97530; 99285; J1650; 71046; 80320; 81003; 81015; 82140; 83540; 83550; 83605; 83735; 85025; 86140; 87086; 93010; 99223; 99232; 99233; 99239; J1940; J1956; J3490

== ENCOUNTER 2021-09-16 17:13 | Inpatient (IN) | payer MEDICAID, SELFPAY ==
[2021-09-16 17:20] VITALS: BP 113/74; PULSE 84; RESP 18; TEMP 36.6; O2SAT 97
--- NOTE | 2021-09-16 17:35 | W.ED.GENAD ---
Discharge Plan Disposition Patient Disposition: [facility] INPATIENT Condition: Stable Discharge Details Clinical Impression: Continuous chronic alcoholism, Discharge planning issues, Chronic cutaneous venous stasis ulcer, Chronic venous stasis dermatitis of both lower extremities Primary Care Provider: Sushil Figueroa ED Provider: Be Farrell Home Meds and New Rx's Prescriptions: No Action aspirin [Aspir-81] 81 MG tablet,delayed release (DR/EC) 81 mg PO DAILY tamsulosin [Flomax] 0.4 mg capsule 0.8 mg PO DAILY spironolactone 50 mg tablet 50 mg PO DAILY duloxetine [Cymbalta] 30 mg capsule,delayed release(DR/EC) 60 mg PO DAILY trazodone 50 mg tablet 50 mg PO DAILY furosemide 20 mg tablet 40 mg PO BID epinephrine 0.3 MG/SYR auto-injector 0.3 mg IM DIRECTED PRN Label Comments: has never used 05/01/16 07/09/16- Pt states he had 2 epi pens a long time ago but doesnt know where they are atorvastatin [Lipitor] 40 MG tablet 40 mg PO QPM lactulose [Constulose] 10 GM/15 ML solution 45 gm PO TID Label Comments: Pt states hes supposed to take 45gm TID, but has not been taking d/t diarrhea lidocaine [Lidoderm] 1 PATCH patch 1 patch Topical Q24H Qty: 4 0RF pantoprazole [Protonix] 20 mg Tablet,Delayed Release (Dr/Ec) 20 mg PO DAILY polyethylene glycol 3350 [Miralax] 17 gram/dose powder 17 g PO DAILY PRN PRN Label Comments: Take 17 gram by mouth as directed as needed magnesium oxide 400 MG tablet 400 mg PO BID multivitamin 1 EACH capsule 1 ea PO DAILY thiamine mononitrate (vit B1) [Vitamin B-1 (mononitrate)] 100 MG tablet 100 mg PO DAILY ammonium lactate 12 % Lotion 1 applic topical DAILY Qty: 400 0RF ascorbic acid (vitamin C) [Vitamin C] 500 mg Tablet 500 mg PO BID Qty: 60 0RF Eucerin Cream 1 applic topical PRN PRNQty: 454 0RF ferrous sulfate 325 mg (65 mg iron) Tablet 325 mg PO BID Qty: 60 0RF gabapentin 300 mg Capsule 900 mg PO TID Qty: 90 0RF morphine [MS Contin] 30 mg Tablet Extended Release 30 mg PO BID Qty: 20 0RF silver sulfadiazine [SSD] 1 % Cream 1 applic topical DAILY Qty: 85 0RF levofloxacin 750 mg tablet 750 mg PO DAILY Qty: 7 0RF Rx Instructions: First dose on 09/17/21 Medical Decision Making 61-year-old male who was admitted to the hospital and discharged at approximately 2 PM. He was discharged to a friend's home but was not welcome when he arrived and therefore was brought back to the hospital. He states to me he feels weak and unable to care for himself. Patient underwent medical screening examination which is unremarkable. He has chronic venous stasis ulcers for which he was treated, dressed and has an outpatient plan of care. Is also been prescribed Levaquin following blood cultures that grew strep pyogenes and following a documented and appropriate clinical response to the Levaquin. Patient's vital signs are normal. His exam is without new findings. There is a restraining order against the patient at the hospital. He currently is undomiciled and his previous discharge today to the home of a friend failed. The patient does have significant and ongoing needs for wound care including daily washing, drying and reapplication of both ammonium lactate, conforming stretch Marvin and gauze to both lower extremities. In my opinion the patient does not have the ability to perform this needed wound care, has recent documentation of sepsis, cellulitis, and bacteremia. Due to the patient having an active restraining order against him by the institution, I discussed this case with the hris administrator on-call Mr. Dawit Hughes, the groundskeeping maintenance Dr. Carpenter, and I also discussed the case with the patients Sister Yolanda Craig whose phone number is [phone]. She lives in the town of [facility]. She states that she also has a restraining order against her brother and that he has a long history of noncompliance and alcoholism. Due to the patient's inability to care for himself, the risk of recurrent bacteremia and need for ongoing wound care, I discussed the case with Dr. Mcmillan and we will admit the patient to a swing bed. HPI General Mode of arrival: wheelchair. Date/Time Provider Initiated Documentation: 09/16/21 17:14. Limitations to Documentation: no limitations. Information obtained by: patient. History of Present Illness 61 year old M presents to the emergency department with the chief complaint of I have no place to stay, described as mild, Patient started experiencing this hour(s) and it has been constant. No relieving factors improve symptom(s), No exacerbating factors reported . Patient did receive the following treatments prior to arrival, none Related Data Home Medications Medication Instructions Recorded Confirmed epinephrine 0.3 mg/0.3 mL 0.3 mg IM DIRECTED PRN 01/15/13 09/16/21 injection, auto-injector atorvastatin 40 mg tablet (Lipitor) 40 mg PO QPM 08/19/16 09/16/21 lactulose 10 gram/15 mL oral 45 gm PO TID 08/19/16 09/16/21 solution (Constulose) magnesium oxide 400 mg (241.3 mg 400 mg PO BID 11/19/16 09/16/21 magnesium) tablet multivitamin 1 ea PO DAILY 11/19/16 09/16/21 thiamine mononitrate (vit B1) 100 100 mg PO DAILY 11/19/16 09/16/21 mg tablet (Vitamin B-1 (mononitrate)) aspirin 81 mg tablet,delayed 81 mg PO DAILY 03/15/17 09/16/21 release (Aspir-) lidocaine 5 % topical patch 1 patch topical Q24H #4 patches 10/30/18 09/16/21 (Lidoderm) pantoprazole 20 mg tablet,delayed 20 mg PO DAILY 11/01/19 09/16/21 release (Protonix) duloxetine 30 mg capsule,delayed 60 mg PO DAILY 07/18/21 09/16/21 release (Cymbalta) furosemide 20 mg tablet 40 mg PO BID 07/18/21 09/16/21 spironolactone 50 mg tablet 50 mg PO DAILY 07/18/21 09/16/21 tamsulosin 0.4 mg capsule (Flomax) 0.8 mg PO DAILY 07/18/21 09/16/21 trazodone 50 mg tablet 50 mg PO DAILY 07/18/21 09/16/21 polyethylene glycol 3350 17 17 g PO DAILY PRN PRN 07/28/21 09/16/21 gram/dose oral powder (Miralax) ammonium lactate 12 % lotion 1 applic topical DAILY #400 grams 08/11/21 09/16/21 ascorbic acid (vitamin C) 500 mg 500 mg PO BID #60 tabs 08/11/21 09/16/21 tablet (Vitamin C) ferrous sulfate 325 mg (65 mg 325 mg PO BID #60 tabs 08/11/21 09/16/21 iron) tablet gabapentin 300 mg capsule 900 mg PO TID #90 caps 08/11/21 09/16/21 lanolin alcohols-mineral 1 applic topical PRN PRN #454 grams 08/11/21 09/16/21 oil-w.petrolatum-ceresin topical cream (Eucerin topical cream) morphine 30 mg tablet,extended 30 mg PO BID #20 tabs 08/11/21 09/16/21 release (MS Contin) silver sulfadiazine 1 % topical 1 applic topical DAILY #85 grams 08/11/21 09/16/21 cream (SSD) levofloxacin 750 mg tablet 750 mg PO DAILY #7 tabs 09/16/21 09/16/21 Previous Rx's Medication Instructions Recorded lidocaine 5 % topical patch 1 patch topical Q24H #4 patches 10/30/18 (Lidoderm) ammonium lactate 12 % lotion 1 applic topical DAILY #400 grams 08/11/21 ascorbic acid (vitamin C) 500 mg 500 mg PO BID #60 tabs 08/11/21 tablet (Vitamin C) ferrous sulfate 325 mg (65 mg 325 mg PO BID #60 tabs 08/11/21 iron) tablet gabapentin 300 mg capsule 900 mg PO TID #90 caps 08/11/21 lanolin alcohols-mineral 1 applic topical PRN PRN #454 grams 08/11/21 oil-w.petrolatum-ceresin topical cream (Eucerin topical cream) morphine 30 mg tablet,extended 30 mg PO BID #20 tabs 08/11/21 release (MS Contin) silver sulfadiazine 1 % topical 1 applic topical DAILY #85 grams 08/11/21 cream (SSD) levofloxacin 750 mg tablet 750 mg PO DAILY #7 tabs 09/16/21 Allergies Allergy/AdvReac Type Severity Reaction Status Date / Time venom-honey bee Allergy Severe signs of Unverified 09/16/21 17:27 stroke pregabalin [From Lyrica] Allergy Mild Unverified 09/16/21 17:27 varenicline tartrate AdvReac Unknown Nausea Unverified 09/16/21 17:27 [From Chantix] General Stated Complaint: GenMedical SCOT: 3 Review of Systems Narrative: Feels weak, chronic lower extremity venous stasis. No fall, no fever. 6 systems reviewed and otherwise negative PFSH All Active Problems (Updated 09/16/21 @ 19:04 by Be Farrell MD) Bacteremia due to Streptococcus (Acute) Acute on chronic diastolic (congestive) heart failure (Acute) Discharge planning issues (Acute) DVT prophylaxis (Acute) Thrombocytopenia (Acute) Sepsis (Acute) Bilateral lower leg cellulitis (Acute) Acute exacerbation of chronic low back pain (Acute) Open leg wound (Acute) Chronic pain (Chronic) Generalized weakness (Acute) Bilateral leg weakness (Acute) Chronic wound of extremity (Acute) Bilateral leg weakness (Acute) Chronic back pain (Acute) Chronic leg pain (Acute) Chronic neck pain (Acute) Chronic back pain (Acute) Numbness (Acute) Polymicrobial bacterial infection (Acute) Constipation (Chronic) MRSA cellulitis (Acute) Chronic anemia (Acute) Pressure ulcers of skin of multiple topographic sites (Acute) Chronic cutaneous venous stasis ulcer (Chronic) Chronic venous stasis dermatitis of both lower extremities (Acute) Polysubstance abuse (Acute) Discharge planning issues (Acute) GERD (gastroesophageal reflux disease) (Chronic) Alcoholic cirrhosis of liver (Chronic) Continuous chronic alcoholism (Chronic 01/15/13) Medical History Acute alcohol intoxication Alcohol dependence Anemia Arthritis Bilateral leg edema Chronic pain Cirrhosis of liver Diabetic peripheral neuropathy Encephalopathy, hepatic Hepatitis C Hyperlipidemia Knee pain, right TIA (transient ischemic attack) TIA (transient ischemic attack) Ulnar neuropathy Urinary retention Surgical History H/O cervical spine surgery Hx of total knee arthroplasty Social History Smoking/Tobacco Use Status: Current every day Tobacco Type: cigarettes and e-cigarettes Smoking risk assessment performed?: Yes Alcohol Intake: current Alcohol Intake frequency: 3 or more drinks per day Alcohol type: beer, wine and hard liquor Drug use: Occasionally Substance use type: marijuana Housing: apartment Number of Children: 3 What type of physical activity do you participate in: walking Do you feel safe at home: Yes Do you feel safe in your relationship?: Yes Exam Narrative Exam Narrative: GEN: awake, alert. Pleasant, well groomed, interactive. HEAD: Normocephalic, atraumatic ENT: Mucous membranes moist, oropharynx unremarkable, External ear exam unremarkable EYES: PERRL, EOMI NECK: Full ROM, no URI, no menigismus CHEST/RESP: No respiratory distress, clear to auscultation Cardiac: Regular rate and rhythm, no murmur appreciated ABDOMEN: Soft, nontender, no mass. +Bowel sounds EXT: Full ROM, the lower extremity are dressed Neuro: Grossly normal neurologic exam, conversant, interactive. Psych: Speech fluent, thoughts congruent, affect normal Course Vital Signs Vital signs: Vital Signs Temperature 36.6 C 09/16/21 17:20 Pulse 84 09/16/21 17:20 Respiratory Rate 18 09/16/21 17:20 Blood Pressure 113/74 09/16/21 17:20 Pulse Oximetry 97 09/16/21 17:20 Temperature 36.6 C 09/16/21 17:20 Temperature Source Skin 09/16/21 17:20 Pulse 84 09/16/21 17:20 Respiratory Rate 18 09/16/21 17:20 Respiratory Effort 09/16/21 17:27 Blood Pressure 113/74 09/16/21 17:20 Blood Pressure Position Sitting 09/16/21 17:20 Pulse Oximetry 97 09/16/21 17:20 Oxygen Delivery Method Room Air 09/16/21 17:20 Oxygen Flow Rate 0 09/16/21 17:20 Pain Level 5 09/16/21 17:20
[2021-09-16 19:29] VITALS: BP 117/79; PULSE 75; TEMP 36.6; O2SAT 97
[2021-09-16 19:38] VITALS: BP 128/83; PULSE 80; RESP 16; TEMP 36; O2SAT 98
[2021-09-16] MEDS: Ascorbic Acid 500 MG TAB PO (21:04)
[2021-09-16] MEDS: Gabapentin 300 MG CAP 900 MG PO (21:04)
[2021-09-16] MEDS: Ferrous Sulfate 325 MG TAB PO (21:04)
[2021-09-16] MEDS: Magnesium Oxide 400 MG TAB PO (21:04)
[2021-09-16] MEDS: Atorvastatin 40 MG TAB PO (21:04)
[2021-09-16] MEDS: Lidocaine 5% Patch 1 PATCH TP (21:05)
--- NOTE | 2021-09-16 22:25 | W.PM.HP.N ---
Date of service: 09/16/21 Time of Service: 21:26 Assessment and Plan Assessment and plan (1) Bilateral lower leg cellulitis: Status: Resolved Assessment and plan: cellulitis has been responsive to levaquin. Will continue current oral treatment of Levaquin 750 mg daily x 7 more days as planned at discharge earlier today. Will ask wound care nurses to evaluate his right calve skin ulcer and continue their plan of medicare sales executive time spent interviewing and examining patient, discussion of goals of care with hospital team (care management, nursing and consulting professionals) was 45 minutes. (2) Chronic wound of extremity: Status: Acute Assessment and plan: as above (3) Venous stasis ulcer: Status: Acute Assessment and plan: as above Qualifiers: Laterality: right Non-pressure ulcer stage: limited to breakdown of skin Varicose vein presence: unspecified whether present Venous stasis ulcer site: calf Qualified Code(s): I83.012 - Varicose veins of right lower extremity with ulcer of calf; L97.211 - Non-pressure chronic ulcer of right calf limited to breakdown of skin (4) Generalized weakness: Status: Acute Assessment and plan: will ask P.T. and O.T. to evaluate and treat and come up w/ plan of care for discharge (5) Alcohol dependence: Assessment and plan: monitor; as he has been out of the hospital for less than 3 hours, it is unlikely that he will experience acute alcohol withdrawal; therefore I have not ordered any CIWA monitoring. (6) Cirrhosis of liver: Assessment and plan: secondary to HCV and alcoholism, avoid excessive APAP; adjust any meds that are hepatically cleared. (7) Diabetic peripheral neuropathy: Assessment and plan: continue cymbalta and gabapentin and oral morphine (8) Urinary retention: Assessment and plan: monitor urine output and scan for PVR Q8hr and cath prn >350 mL (9) Depression: Status: None Assessment and plan: continue Cymbalta (10) Discharge planning issues: Status: Resolved Assessment and plan: consult w/ care management regarding housing/discharge planning. We may need to consider psychiatric consultation regarding patient's capacity to make medical decisions. History of Present Illness History of Present Illness Chief Complaint: homeless Narrative: 61-year-old male with a past medical history of bilateral lower extremity venous stasis ulcers with cellulitis, NIDDM 2, alcohol abuse, alcoholic cirrhosis, who was hospitalized at [facility] from 09/12/2021 through 09/16/2021 for sepsis due to cellulitis of his legs. Blood cultures grew Streptococcus pyogenes group A and patient was treated initially with vancomycin and cefepime but when the blood cultures came back for strep pyogenes he was switched to IV Levaquin. Repeat blood cultures from 09/14/2021 showed no growth after 48 hours. Wound care nurses were consulted Corrie management of his leg ulcers. Because of urinary retention requiring Denis catheter which she had a high postvoid residual 1600 mL urology was consulted and they recommend that he perform self-catheterization. He was instructed on how to perform self-catheterization. He had improved enough that he no longer required acute inpatient hospitalization and was discharged home on a 7-day course of Levaquin 750 mg orally daily. He was instructed to follow-up with his PCP in 1 week. He was discharged around 3:15 PM this afternoon however he was supposed to stay with a friend and his friend's trailer but reportedly when public transportation took him there home was found to be condemned. Patient came back to the emergency room stating that he could not take care of himself and complaining of generalized weakness and dizziness. Dr. Farrells opinion the patient does not have the capability to perform his needed wound care because the patient had no acute medical condition that necessitated inpatient hospitalization Dr. Farrell discussed the patient's case with the contracts administrator on-call Mr. Dawit carlson as well as the chief orthoptist Dr. Paniagua as well as discussing the patient's case with his sister, Yolanda Craig at [phone] Farrell's ER note for details. As the patient has been turned away for transitional housing and was felt that he could not properly care for his wounds on his own while being homeless it was decided admit the patient under swing bed level 1 care for continued wound care treatment. Because of the patient's longstanding history of alcohol abuse and noncompliance issue has been raised as to whether or not he has the capacity to make informed medical decisions. Review of Systems All systems reviewed & are unremarkable except as noted in HPI and below PFSH All Active Problems (Updated 09/17/21 @ 00:05 by JUSTICE MARIN) Venous stasis ulcer (Acute) Bacteremia due to Streptococcus (Acute) Acute on chronic diastolic (congestive) heart failure (Acute) Thrombocytopenia (Acute) Chronic pain (Chronic) Generalized weakness (Acute) Bilateral leg weakness (Acute) Chronic wound of extremity (Acute) Bilateral leg weakness (Acute) Chronic back pain (Acute) Chronic leg pain (Acute) Chronic neck pain (Acute) Chronic back pain (Acute) Numbness (Acute) Polymicrobial bacterial infection (Acute) Constipation (Chronic) MRSA cellulitis (Acute) Chronic anemia (Acute) Pressure ulcers of skin of multiple topographic sites (Acute) Chronic cutaneous venous stasis ulcer (Chronic) Chronic venous stasis dermatitis of both lower extremities (Acute) Polysubstance abuse (Acute) Discharge planning issues (Acute) GERD (gastroesophageal reflux disease) (Chronic) Alcoholic cirrhosis of liver (Chronic) Continuous chronic alcoholism (Chronic 01/15/13) Medical History Acute alcohol intoxication Alcohol dependence Anemia Arthritis Bilateral leg edema Chronic pain Cirrhosis of liver Diabetic peripheral neuropathy Encephalopathy, hepatic Hepatitis C Hyperlipidemia Knee pain, right TIA (transient ischemic attack) TIA (transient ischemic attack) Ulnar neuropathy Urinary retention Surgical History H/O cervical spine surgery Hx of total knee arthroplasty Social History Smoking/Tobacco Use Status: Current every day Tobacco Type: cigarettes and e-cigarettes Smoking risk assessment performed?: Yes Alcohol Intake: current Alcohol Intake frequency: 3 or more drinks per day Alcohol type: beer, wine and hard liquor Drug use: Occasionally Substance use type: marijuana Housing: apartment Number of Children: 3 What type of physical activity do you participate in: walking Do you feel safe at home: Yes Do you feel safe in your relationship?: Yes Meds Allergies and Home Medications Allergies Allergy/AdvReac Type Severity Reaction Status Date / Time venom-honey bee Allergy Severe signs of Unverified 09/16/21 17:27 stroke pregabalin [From Lyrica] Allergy Mild Unverified 09/16/21 17:27 varenicline tartrate AdvReac Unknown Nausea Unverified 09/16/21 17:27 [From Chantix] Home Medications Medication Instructions Recorded Confirmed Type epinephrine 0.3 mg/0.3 mL 0.3 mg IM DIRECTED PRN 01/15/13 09/16/21 History injection, auto-injector atorvastatin 40 mg tablet (Lipitor) 40 mg PO QPM 08/19/16 09/16/21 History lactulose 10 gram/15 mL oral 45 gm PO TID 08/19/16 09/16/21 History solution (Constulose) magnesium oxide 400 mg (241.3 mg 400 mg PO BID 11/19/16 09/16/21 History magnesium) tablet multivitamin 1 ea PO DAILY 11/19/16 09/16/21 History thiamine mononitrate (vit B1) 100 100 mg PO DAILY 11/19/16 09/16/21 History mg tablet (Vitamin B-1 (mononitrate)) aspirin 81 mg tablet,delayed 81 mg PO DAILY 03/15/17 09/16/21 History release (Aspir-) lidocaine 5 % topical patch 1 patch topical Q24H #4 patches 10/30/18 09/16/21 Rx (Lidoderm) pantoprazole 20 mg tablet,delayed 20 mg PO DAILY 11/01/19 09/16/21 History release (Protonix) duloxetine 30 mg capsule,delayed 60 mg PO DAILY 07/18/21 09/16/21 History release (Cymbalta) furosemide 20 mg tablet 40 mg PO BID 07/18/21 09/16/21 History spironolactone 50 mg tablet 50 mg PO DAILY 07/18/21 09/16/21 History tamsulosin 0.4 mg capsule (Flomax) 0.8 mg PO DAILY 07/18/21 09/16/21 History trazodone 50 mg tablet 50 mg PO DAILY 07/18/21 09/16/21 History polyethylene glycol 3350 17 17 g PO DAILY PRN PRN 07/28/21 09/16/21 History gram/dose oral powder (Miralax) ammonium lactate 12 % lotion 1 applic topical DAILY #400 grams 08/11/21 09/16/21 Rx ascorbic acid (vitamin C) 500 mg 500 mg PO BID #60 tabs 08/11/21 09/16/21 Rx tablet (Vitamin C) ferrous sulfate 325 mg (65 mg 325 mg PO BID #60 tabs 08/11/21 09/16/21 Rx iron) tablet gabapentin 300 mg capsule 900 mg PO TID #90 caps 08/11/21 09/16/21 Rx lanolin alcohols-mineral 1 applic topical PRN PRN #454 grams 08/11/21 09/16/21 Rx oil-w.petrolatum-ceresin topical cream (Eucerin topical cream) morphine 30 mg tablet,extended 30 mg PO BID #20 tabs 08/11/21 09/16/21 Rx release (MS Contin) silver sulfadiazine 1 % topical 1 applic topical DAILY #85 grams 08/11/21 09/16/21 Rx cream (SSD) levofloxacin 750 mg tablet 750 mg PO DAILY #7 tabs 09/16/21 09/16/21 Rx Exam Const General: cooperative, comfortable, no acute distress and well developed Nutritional Appearance: obese Orientation: alert, awake and oriented x3 HENMT Head: normal to inspection, normocephalic and atraumatic Ears: hearing grossly normal bilaterally and external ears normal General nose exam: external nose normal and nares normal Face and sinus: normal facial exam, sinuses nontender and face symmetric Mouth: oral mucosae normal, lip normal, tongue normal and oropharynx normal Throat: posterior oropharynx normal and uvula midline Eyes General: appearance normal, both eyes and all related structures Visual Blair: normal visual blair by confrontation Alignment and Position: alignment normal Periorbital: periorbital findings normal Eyelids: eyelids normal Conjunctivae: conjunctivae normal Sclera: sclerae normal Cornea: corneas normal Pupils: PERRL and normal by confrontation EOM: EOM intact bilaterally Neck Neck: normal visual inspection, full ROM, no lymphadenopathy, no meningeal signs, trachea midline, supple and no JVD Lymphatic: no lymphadenopathy noted Chest Chest: normal inspection of the chest Resp Effort & Inspection: normal respiratory effort and able to speak in complete sentences Auscultation: clear to auscultation bilaterally and no rubs Percussion: percussion normal Tactile Fremitus: tactile fremitus absent Cardio Jugular venous pressure: no JVD Palpation: normal PMI Rate: regular rate Rhythm: regular rhythm Heart Sounds: S1 normal, S2 normal, normal, physiologic split S2, no click, no gallops, no murmurs and no rubs Bruits: no abdominal aortic bruits and no carotid bruits Pulses: brachial pulses present, radial pulses present, femoral pulses present and dorsalis pedis present GI Inspection: normal to inspection Palpation: soft, no hepatosplenomegaly, no guarding and nontender Percussion: normal to percussion Auscultation: normal bowel sounds Rectal Exam: deferred General: deferred Back/Spine/Pelvis Back: no CVA tenderness Cervical Spine: normal cervical lordosis and cervical ROM normal Thoracic/Lumbar Spine: thoracic and lumbar spine normal to inspection Skin General skin exam: other (patient declined for me to undress his leg FAUSTINO wraps) Neuro General: patient alert, patient awake, patient oriented x3, tone normal, moves all extremities, CN's II-XI intact bilaterally and decrease sensation to monofilament (decr. sensation to light touch over his toes both feet) Extrem General: full ROM, capillary refill normal and no joint enlargement Results Last Vital Signs Temp 36.0 C L 09/16/21 19:38 Pulse 80 09/16/21 19:38 Resp 16 09/16/21 19:38 BP 128/83 09/16/21 19:38 Pulse Ox 98 09/16/21 19:38
[2021-09-17] MEDS: Spironolactone 50 MG TAB PO (08:07)
[2021-09-17] MEDS: traZODone 50 MG TAB PO (08:07)
[2021-09-17] MEDS: Furosemide 20 MG TAB 40 MG PO ×2 (08:07→22:29)
[2021-09-17] MEDS: Pantoprazole 20 MG TABCR PO (08:07)
[2021-09-17] MEDS: Thiamine 100 MG TAB PO (08:07)
[2021-09-17] MEDS: Ascorbic Acid 500 MG TAB PO ×2 (08:07→20:26)
[2021-09-17] MEDS: Ferrous Sulfate 325 MG TAB PO ×2 (08:07→20:26)
[2021-09-17] MEDS: Magnesium Oxide 400 MG TAB PO ×2 (08:07→20:26)
[2021-09-17] MEDS: Gabapentin 300 MG CAP 900 MG PO ×3 (08:08→20:26)
[2021-09-17] MEDS: Aspirin E.C. 81 MG TABEC PO (08:08)
[2021-09-17] MEDS: Tamsulosin 0.4 MG CAPCR 0.8 MG PO (08:08)
[2021-09-17] MEDS: Multivitamin TAB 1 TAB PO (08:08)
[2021-09-17] MEDS: DULoxetine 30 MG CAP 60 MG PO (08:09)
[2021-09-17] MEDS: levoFLOXacin 250 MG TAB 750 MG PO (08:09)
--- NOTE | 2021-09-17 09:43 | W.INDIABCONS ---
Date of service: 09/17/21 Time of Service: 08:44 Diabetes Inpatient Consult Reason for Visit: dm DESCRIPTION/ASSESSMENT: Jackson is admitted on swing bed status. PMH: Homeless, Dm2, liver cirrohsis, bilateral cellulitis of legs with venous stasis ulcers, hx of ETOH abuse. Most recent A1C (08/03/21): 6.4% indicates excellent glycemic management prior to admit. No home DM meds listed. Following diabetic diet with excellent intake. Not considered at nutritional risk. PLAN: Will monitor po intake, labs and weight and make necessary recommendations for optimal nutritional status Time Spent in Nutritional Counseling and Treatment: 0
[2021-09-17 10:25] LABS: Source Nasal/Nares
--- NOTE | 2021-09-17 10:26 | WOUNDCONS ---
- If Service Date Differs Date of service: 09/17/21 Time of Service: 12:15 Wound Initial Evaluation Narrative: Pt is well known to this facility and to myself. Has had a difficult wound history to include homelessness, incarceration, and significant wound infections to include MRSA, strep, e coli, and pasturella. Pt was discharged on 09/16/21 but returned within hours. Pt re-admitted due to friend not allowing him to enter the home where he had been staying. Labs on previous admission show gram+ cocci in blood cultures, gram positive mixed taqueria in urine, crp of 16.06, a most recent wbc of 3.49, and a procalc of 3.0. Has been afebrile on this admission. Last HgbA1c recorded of 6.4 with blood sugar of 91 this am, last albumin of 3.4. Last h&h shows anemia of 8.1 and 27.1. Review of history include: Hyperlipidemia, Hepititis C cirrhosis, hypertension, TIA, Opiod and ETOH abuse, arthritis, DM, and Neuropathy, and daily smoker, Bacteremia, MRSA, depression, chronic venous stasis ulcers of lower extremities, frequent falls. - Wound Right Lower Anterior Lateral Tib/Fib(lower leg) Wound Type: Statis Ulcer, Partial Thickness Wound General Appearance: Draining, Unapproximated Wound Bed Greatest Portion: Red (Granulation) Wound Bed Lesser Portion: Pale [place] Wound Surrounding Tissue Appearance: Bright Red Percent of Wound Bed Granulated/Red: 100 Wound Length: 0.98 in (2.5 CM) Wound Width: 1.85 in (4.7CM) Wound Depth: 0.04 in (0.1 CM) Wound Drainage Amount: Large Wound Drainage Odor: None/Absent Wound Drainage Description: Purulent, Sero Sanguineous Wound Topical Solution/Irrigant: Other (Anasept cleanser) Wound Debridement Method: Gauze Wound Debridement Result: Healthy Tissue Revealed Wound Debridement Amount of Tissue Removed: Minimal Right Lower Posterior Tib/Fib(lower leg) Wound Type: Statis Ulcer, Partial Thickness Wound General Appearance: Draining, Unapproximated, Healing Well Wound Bed Greatest Portion: Red (Granulation) Wound Bed Lesser Portion: Red (Granulation) Wound Surrounding Tissue Appearance: [place], Bright Red Percent of Wound Bed Granulated/Red: 100 Wound Length: 1.38 in (3.5 cm) Wound Width: 2.56 in (6.5 cm) Wound Depth: 0.04 in (0.1 cm) Wound Drainage Amount: Moderate Wound Drainage Odor: None/Absent Wound Drainage Description: Purulent, Green Wound Topical Solution/Irrigant: Other (Anasept) Wound Debridement Method: Gauze Wound Debridement Result: Healthy Tissue Revealed Wound Debridement Amount of Tissue Removed: Minimal - Circulation, Sensation, Motion Edema Degree: 3+ Peripheral Pulse Strength: Normal (Dorsalis pedis 3+, posterior tibial 1+) Capillary Refill: Less than 3 seconds Skin Temperature: Warm Skin Color: Pale - JERAMY Left JERAMY: 0.98 Right JERAMY: 0.89 Pulse: 86 - Pain Pain Level: 7 Pain Scale Used: Adult Pain Description: Achy Pain Duration/Frequency: Constant Anterior leg wounds have lost the scabs from autolytic debridement in the last week and purulent drainage has drained leaving a clean wound bed with granulation tissue present. Area improved. Treatment plan adjusted. Posterior wound has become smaller since last measured on 09/13/21. Surrounding redness decreased, less hot. Wound improved. - Photo Photo: - Treatment/Dressing Change Topicals/Ointments: Silvadene Cleanse With: Anasept Dressing Types: Adaptic (Contact Layer), Elastic Bandage, Gauze, Other (conforming stretch kirsty) - Recomendation Recomendation:: Right Lower Le. Cleanse open areas on anterior and posterior area of right leg with Anasept cleanser. 2. Pat dry. 3. Apply Ammonium Lactate to foot and lower leg. Allow to absorb. 4. Apply nickel thick layer of silvadene cream to open wounds. 5. Apply contact layer to wound such as Adaptic. 6. Cover with 4x4 gauze. 7. Wrap with conforming stretch kirsty starting at the toes and working up the leg to below the knee. 8. Wrap with melissa wrap with a 50% overlap starting at the toes and working up the leg to just below the knee. Use two 3 inch wraps. 9. Change dressing Daily and prn 10. Have pt change position frequently to provide offloading of pressure on calf. Physcian/Nurse Practioner Notified: Yes Referrals: Physical Therapy Treatment Time - Time Total Time Spent with Patient: 35 minutes - Patient Will be Seen Weekly Treatment: daily - For: For:: 2 weeks
[2021-09-17] MEDS: Patch Removal 1 EACH TP (10:46)
[2021-09-17] MEDS: Finasteride 5 MG TAB PO (10:46)
--- NOTE | 2021-09-17 11:23 | CM.SBPSYCH ---
- If Service Date Differs Date of service: 09/17/21 Time of Service: 11:23 SB Psychosocial/Act.Assessment - Hospital Admission Admission Date: 09/16/21 Admission From:: ED Diagnosis:: Bilateral lower leg cellulitis - Swing Bed Admission Swing Bed Admit Date:: 09/16/21 Swing Bed Level of Care: Level 1/SNF - Social Supports PREVIOUS FUNCTIONAL STATUS/SOCIAL/FAMILY SUPPORTS:: Jackson had been staying in his friend [place] trailer located in [facility]. When he was discharged home yesterday he was told that he was not allowed to return. He currently is withoput housing and returned to the ED as he was unable to care for his leg wounds. 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 - [place]: No - Benefits Financial: SSI, Medicaid - Jew Active Mosque Member:: No - Advance Directives for Healthcare If no AD, do you want more information:: No - Interests Hobbies:: motorcycle riding Crafts:: - Table Games:: - Sports:: likes watching football Music:: [facility] TV/Movies:: action, mystery, drama Gardening:: enjoys Reading:: no - Present Functional Status Physical Abilities:: limited by leg wounds but ambulates independently with walker Cognitive:: mostly intact, at times forgetful Communication:: good verbal skills but uses offensive language Sensory Systems: glasses and dentures - Medical History PAST MEDICAL HISTORY/PAST SURGICAL HISTORY:: All Active Problems (Updated 09/12/21 @ 19:08 by Brielle Byers MD). Acute on chronic diastolic (congestive) heart failure (Acute). Discharge planning issues (Acute). DVT prophylaxis (Acute). Thrombocytopenia (Acute). Sepsis (Acute). Bilateral lower leg cellulitis (Acute). Alcohol intoxication (Acute). Acute exacerbation of chronic low back pain (Acute). Open leg wound (Acute). Acute exacerbation of chronic low back pain (Acute). Open leg wound (Acute). Chronic pain (Chronic). Generalized weakness (Acute). Bilateral leg weakness (Acute). Chronic wound of extremity (Acute). Bilateral leg weakness (Acute). Chronic back pain (Acute). Chronic leg pain (Acute). Chronic neck pain (Acute). Chronic back pain (Acute). Numbness (Acute). Polymicrobial bacterial infection (Acute). Constipation (Chronic). MRSA cellulitis (Acute). Chronic anemia (Acute). Pressure ulcers of skin of multiple topographic sites (Acute). Chronic cutaneous venous stasis ulcer (Chronic). Chronic venous stasis dermatitis of both lower extremities (Acute). Polysubstance abuse (Acute). Discharge planning issues (Acute). GERD (gastroesophageal reflux disease) (Chronic). Alcoholic cirrhosis of liver (Chronic). Continuous chronic alcoholism (Chronic 01/15/13). Medical History . Acute alcohol intoxication. Alcohol dependence. Anemia. Arthritis. Bilateral leg edema. Chronic pain. Cirrhosis of liver. Diabetic peripheral neuropathy. Encephalopathy, hepatic. Hepatitis C. Hyperlipidemia. Knee pain, right. TIA (transient ischemic attack). TIA (transient ischemic attack). Ulnar neuropathy. Urinary retention. Surgical History . H/O cervical spine surgery. Hx of total knee arthroplasty General Health:: poor Past Psychiatric Treatment:: has some [facility] support - Admission Data Reason for Swing Bed Admission:: wound care and IV antibiotics Discharge Plan:: unclear Assessment: Jackson was readmitted yesterday about 2 hours after discharge. When he learned that he would not be able to stay at his friends trailer anymore he asked to be returned to the hospital where he was admitted into [facility] for wound care. Jackson is currently homeless; his discharge plan is unclear. Store Clerk: Joselyn Mcgill Date Assessment was completed:: 09/17/21
[2021-09-17] MEDS: Silver sulfaDIAZINE 1% 25 GM TUBE TP (11:29)
[2021-09-17] MEDS: Lachydrin 12% LOTION 225 GM BTL TP (11:29)
--- NOTE | 2021-09-17 14:30 | PT.INIE ---
Date of service: 09/17/21 Time of Service: 14:30 PT Notes Visit Reasons: Lower Extremity Cellulitis Physical Therapy Swing BED Level I Initial Evaluation Date: 09/17/2021 Referring Doctor: Flex Mcmillan MD PT Orders: PT CONSULT: Extended stay weakness Precautions:? Activity as tolerated.? Contact precautions in place. Patient Profile/Admitting Diagnosis: Jackson is a 61-year-old male with chronic cutaneous venous stasis ulcer, chronic cutaneous venous stasis dermatitis of bilateral lower extremities, bilateral lower leg cellulitis, generalized weakness, EtOH dependence, cirrhosis of liver, diabetic peripheral neuropathy, urinary retention, and depression. Patient is readmitted to this hospital after discharge from yesterday due to homelessness under swing bed II level of care for continued wound management and functional mobility training. PMHX: All Active Problems? Venous stasis ulcer (Acute) Bacteremia due to Streptococcus (Acute) Acute on chronic diastolic (congestive) heart failure (Acute) Thrombocytopenia (Acute) Chronic pain (Chronic) Generalized weakness (Acute) Bilateral leg weakness (Acute) Chronic wound of extremity (Acute) Bilateral leg weakness (Acute) Chronic back pain (Acute) Chronic leg pain (Acute) Chronic neck pain (Acute) Chronic back pain (Acute) Numbness (Acute) Polymicrobial bacterial infection (Acute) Constipation (Chronic) MRSA cellulitis (Acute) Chronic anemia (Acute) Pressure ulcers of skin of multiple topographic sites (Acute) Chronic cutaneous venous stasis ulcer (Chronic) Chronic venous stasis dermatitis of both lower extremities (Acute) Polysubstance abuse (Acute) Discharge planning issues (Acute) GERD (gastroesophageal reflux disease) (Chronic) Alcoholic cirrhosis of liver (Chronic) Continuous chronic alcoholism (Chronic 01/15/13) Medical History? Acute alcohol intoxication Alcohol dependence Anemia Arthritis Bilateral leg edema Chronic pain Cirrhosis of liver Diabetic peripheral neuropathy Encephalopathy, hepatic Hepatitis C Hyperlipidemia Knee pain, right TIA (transient ischemic attack) TIA (transient ischemic attack) Ulnar neuropathy Urinary retention Surgical History? H/O cervical spine surgery Hx of total knee arthroplasty Social History/Home Situation: Has been in and out of this hospital due to noncompliance with medical treatment, homelessness, and impaired health-related decision-making skills. Modified independent for up to 1000 feet of level surfaces using 4-wheeled walker. Equipment Owned/DME: [employer], [facility] Subjective: Demanded to have ice cream. He does not understand why he could not have ice cream. Unhappy about his bed and his room. Wants to be transferred to Room 215 where he was previously. Complains of pain in bilateral lower extremities during today's ambulation activity.? States that because of neuropathy, his ability to use his hands and to do lower body dressing is impaired. He is vocal about being homeless and is okay with being able to go to a nursing home facility as he has nowhere else to go. Complains of pain in B legs during ambulation activity. Objective: General Observation: Supine in bed.? Bilateral legs with wound dressings.? Denis catheter in place. Mental Status: Alert and is able to follow instructions. Mostly resistant to safety recommendations during walking. Pain: 5-6/10 in BLE with movement and weight bearing ROM: Right Upper Extremity: ? Shoulder Flexion WFL. Shoulder abduction WFL. Elbow flexion WFL. Wrist flexion WFL. Functional opening and closing of hand WFL. Left Upper Extremity:? Shoulder Flexion WFL. Shoulder abduction WFL. Elbow flexion WFL. Wrist flexion WFL. Functional opening and closing of hand WFL. Right Lower Extremity: Hip flexion lacks the last 25% of AROM. Hip abduction WFL. Knee flexion allows to 90 degrees Ankle dorsiflexion allows -20 degrees.? Ankle plantarflexion WFL. Left Lower Extremity: Hip flexion lacks the last 25% of AROM. Hip abduction WFL. Knee flexion allows to 90 degrees Ankle dorsiflexion allows -20 degrees.? Ankle plantarflexion WFL. Strength: Right Upper Extremity: Shoulder flexors 4-/5. Shoulder abductors 4-/5. Elbow flexors 4-/5. Elbow extensors 4-/5. B2B Outside Sales Representative functional. Left Upper Extremity: Shoulder flexors 4-/5. Shoulder abductors 4-/5. Elbow flexors 4-/5. Elbow extensors 4-/5. B2B Outside Sales Representative functional. Right Lower Extremity: Hip flexors 3-. Hip abductors 4-/5. Knee flexors 3-/5. Knee extensors 3-/5. Ankle dorsiflexors 3-/5. Ankle plantarflexors 4-/5. Left Lower Extremity: Hip flexors 3-/5. Hip abductors 4-/5. Knee flexors 3-/5. Knee extensors 3-/5. Ankle dorsiflexors 3-/5. Ankle plantarflexors 4-/5. Sensation: Diminished as to pain and pressure on bilateral lower extremities due to chronic peripheral neuropathies. Tingling in B legs and feet. Bed Mobility/Transfers: Supine to sit stand by assist Sit to stand stand by assist Stand to sit stand by assist Bed to chair stand by assist Chair to bed stand by assist Gait: 300 feet using front-wheeled walker with full weight bearing, standby assist.?Reports B leg pain that required three standing rests. No loss of balance. Tends to lag behind walker requiring cues to stay close to reduce fall risk. Decreased dorsiflexion in B feet and reduced hip flexion on B sides. Balance: Static Sitting: Normal Dynamic Sitting: Normal Static Standing: Fair Dynamic Standing: Fair Special Tests: Mobility Limitations Standardized Measure [facility] 6 clicks Basic Mobility Inpatient Short Form: Raw Score: 21 ? CMS Score: 29% deficit? ? ? Informed Consent/Education:? Patient was instructed in purpose of PT consult and plan of care. ASSESSMENT: 1. Generalized weakness Patient is able to perform transfer and mobility task performance requiring stand by assist only. His ambulatory dysfunction stems from weakness in B LE compounded by chronic wounds in B legs. Will attempt at doing progressive strengthening to B LE and see how far patient can remain compliant. 2. Repeated falls and impaired safety awareness Jackson demonstrates impairment with safety awareness which has resulted to repeated falls and long-term complications. He would benefit from a supervised home environment where his nutritional intake, healthcare decisions/choices, medication management are addressed to reduce rate of rehospitlaization. Jackson presents with clinical signs and symptoms consistent with current/admitting diagnoses that have resulted to mobility limitations, gait instability, generalized weakness, and impairment of motor control as demonstrated by the following impairment level findings: 1.? Decreased strength to B UE/LE major muscle groups 2.? Impaired standing balance 3.? Impaired activity tolerance 4.? Limitation of joint range of motion in B UE/LE 5.? Diminished sensation to bilateral lower extremities (chronic) 6. Chronic wound in B legs Impairments are contributing to the following functional limitations: 1.? Inability to safely ambulate without assistive device 2.? Increase completion time for mobility ADL performance 3.? Increased fall risk 4.? Inability to negotiate steps alone safely 5. Inability to safely thrive alone Patient is assessed as a 93189 moderate complexity based on the following: History: 59-year-old male with impairment level findings, functional limitations, and past medical history as indicated above Examination: Demonstrable impairment in strength, balance, and mobility level with underlying impairments and functional limitations as documented above Presentation: Evolving Decision Makin moderate complexity Goals: Goals X1 week 1. Supine-Sit independent 2. Sit-Supine independent 3. Sit-Stand independent 4. Stand-Sit independent 5. Bed-Chair independent 6. Chair-Bed independent 7. Independent with gait on level surfaces with use of least restrictive device for at least 500 feet without report of pain nor dyspnea 8. Good static and dynamic standing balance/tolerance Plan of Care/Treatment Plan: 1-2x/day, 7 days/week x 1 week. Plan of care has been reviewed with the PSYCHOLOGICAL EXAMINER providing the service under Physical Therapy direction. Initiate Physical Therapy intervention for strengthening, bed mobility, transfers, gait, stairs, balance training, use of assistive device. DISCHARGE RECOMMENDATIONS: [] ? Home with no services [] [] ? Home with services [] [] ? Home with outpatient PT [] [] ? SNF for continued rehabilitation [] [] ? Long-Term Care [] [] ? SNF versus LTC based on ability to participate and progress [] [X] Supervised home environment. Home when medically cleared by hospitalist. Jackson demonstrates impairment with safety awareness which has resulted to repeated falls and long-term complications. He would benefit from a supervised home environment where his nutritional intake, healthcare decisions/choices, medication management are addressed to reduce rate of rehospitalization. PT/OT for continued rehabin supervised home environment. TREATMENT CODE/TIME: 72299 x 20 minutes, 95365 x 10 minutes beginning at 14:30 PM. Thank you for the opportunity to participate in the care of this patient. Adela Meraz PT, DPT, CLT [facility] [place], [place]
[2021-09-17 15:52] VITALS: BP 129/79; PULSE 83; RESP 18; TEMP 36.6; O2SAT 97
[2021-09-17 16:34] LABS: COVID-19 PCR Negative (Negative)
--- NOTE | 2021-09-17 16:37 | CM.SWINGPC ---
- If Service Date Differs Date of service: 09/17/21 Time of Service: 16:37 Swingbed Plan of Care Plan of care: SWING BED PROGRAM ACTIVITIES/DISCHARGE PLAN OF CARE ACTIVITIES PLAN Date:09/17/21 Identified Need: individualized activity plan Intervention/Plan: Jackson will be offered music therapy and pet therapy when available. He enjoys watching tv andvisiting with staff. [place] [facility] [place]:09/17/21 Identified Need: Safe Discharge plan Intervention/Plan:Jackson's discharge plan is unclear at this time as he lacks housing. CM will work with community partners to explore options. [place] [facility] [place]
[2021-09-17 17:29] VITALS: PULSE 86
[2021-09-17] MEDS: Lidocaine 5% Patch 1 PATCH TP (20:25)
[2021-09-17] MEDS: Atorvastatin 40 MG TAB PO (20:26)
[2021-09-17 22:51] VITALS: BP 129/79; PULSE 82; RESP 18; TEMP 36.7; O2SAT 97
[2021-09-18 08:07] VITALS: BP 106/67; PULSE 89; RESP 18; TEMP 36.6; O2SAT 94
[2021-09-18] MEDS: Gabapentin 300 MG CAP 900 MG PO ×3 (08:52→19:55)
[2021-09-18] MEDS: levoFLOXacin 250 MG TAB 750 MG PO (08:52)
[2021-09-18] MEDS: Aspirin E.C. 81 MG TABEC PO (08:52)
[2021-09-18] MEDS: Multivitamin TAB 1 TAB PO (08:53)
[2021-09-18] MEDS: Thiamine 100 MG TAB PO (08:53)
[2021-09-18] MEDS: Pantoprazole 20 MG TABCR PO (08:53)
[2021-09-18] MEDS: DULoxetine 30 MG CAP 60 MG PO (08:53)
[2021-09-18] MEDS: Spironolactone 50 MG TAB PO (08:53)
[2021-09-18] MEDS: Magnesium Oxide 400 MG TAB PO ×2 (08:53→19:56)
[2021-09-18] MEDS: Tamsulosin 0.4 MG CAPCR 0.8 MG PO (08:53)
[2021-09-18] MEDS: Ferrous Sulfate 325 MG TAB PO ×2 (08:53→19:56)
[2021-09-18] MEDS: Furosemide 20 MG TAB 40 MG PO ×2 (08:54→16:15)
[2021-09-18] MEDS: Ascorbic Acid 500 MG TAB PO ×2 (08:54→19:56)
[2021-09-18] MEDS: Finasteride 5 MG TAB PO (08:54)
[2021-09-18] MEDS: Patch Removal 1 EACH TP (08:55)
--- NOTE | 2021-09-18 09:56 | OTIE_ITS ---
Occupational Therapy Notes Inpatient Occupational Therapy [facility] Evaluation Date: 09/18/21 Referring Doctor:Renate Hyde NP OT Orders: Non Urgent Precautions: Contact, fall, full PATIENT PROFILE/ADMITTING DIAGNOSIS: Pt is a 61 year old male who is admitted via [facility] for the following dx including venous stasis ulcer, bacteremia due to streptococcus, CHF, thrombocyopenia, chronic pain, generalized weakness, (B) leg weakness, chronic would of extremity, numbness, polymicrobial bacterial infection, constipation, MRSA cellulitis, chronic anemia, opioid abuse, depression, GERD, alcoholic cirrhosis of liver and continuous chornic alcoholism. Past Medical History: All Active Problems?(Updated 09/17/21 @ 00:05 by JUSTICE MARIN) Venous stasis ulcer (Acute) Bacteremia due to Streptococcus (Acute) Acute on chronic diastolic (congestive) heart failure (Acute) Thrombocytopenia (Acute) Chronic pain (Chronic) Generalized weakness (Acute) Bilateral leg weakness (Acute) Chronic wound of extremity (Acute) Bilateral leg weakness (Acute) Chronic back pain (Acute) Chronic leg pain (Acute) Chronic neck pain (Acute) Chronic back pain (Acute) Numbness (Acute) Polymicrobial bacterial infection (Acute) Constipation (Chronic) MRSA cellulitis (Acute) Chronic anemia (Acute) Pressure ulcers of skin of multiple topographic sites (Acute) Chronic cutaneous venous stasis ulcer (Chronic) Chronic venous stasis dermatitis of both lower extremities (Acute) Polysubstance abuse (Acute) Discharge planning issues (Acute) GERD (gastroesophageal reflux disease) (Chronic) Alcoholic cirrhosis of liver (Chronic) Continuous chronic alcoholism (Chronic 01/15/13) Medical History? Acute alcohol intoxication Alcohol dependence Anemia Arthritis Bilateral leg edema Chronic pain Cirrhosis of liver Diabetic peripheral neuropathy Encephalopathy, hepatic Hepatitis C Hyperlipidemia Knee pain, right TIA (transient ischemic attack) TIA (transient ischemic attack) Ulnar neuropathy Urinary retention Surgical History? H/O cervical spine surgery Hx of total knee arthroplasty Social History/Home Situation: Pt states that he is homeless and that he cannot care for himself. He continues to say this multiple times throughout session. He states that he needs help with everything and doesn't understand why he needs to try to do it himself. He is discouraged with where he is in terms of his (I). Equipment owned/DME: None SUBJECTIVE: Pt states that he is not interested in doing anything, he believes that other people can do it for him and he is in pain. He states that he doesn't want to perform anything that will cause him pain. He states, I'm not even able to go to the bathroom, this is crazy. Why the hell would I need to do services, I'm homeless. OBJECTIVE: General Observation: Wounds on (B) LE, generalized weakness throughout Mental Status: A&Ox2 Pain: Pain everywhere in my whole body ROM: RUE Shoulder flexion to 145*, elbow wrists and digits WFL L UE Shoulder flexion to 145*, elbow wrists and digits WFL STRENGTH: RUE desktop operator strength 0/5 for testing, otherwise 3-/5 throughout LUE desktop operator strength 0/5 for testing, otherwise 3-/5 throughout FUNCTIONAL MOBILITY/ADLS: BATHING pt refuses to perform DRESSING pt is frustrated with having to perform his ADLs, he is max (A) with his dressing per his report. However pt does have ROM available for performance he is not willing to perform specific dressing tasks. TOILETING NT EATING pt states that he is (I) but requires (A) with cutting his foods BALANCE: Static sitting Normal Dynamic Sitting Good SPECIAL TESTS: Daily Activity Limitations Standardized Measure [facility] AM -PAC ?6 clicks? Daily Activity Inpatient Short Form: Raw score: 12 Standardized score: 30.60 CMS score: 66.57% INFORMED CONSENT/EDUCATION: Pt instructed in purpose of OT Consult and plan of care. ASSESSMENT: Patient is a 61-year-old male referred to occupational therapy services with diagnosis of venous stasis ulcer, bacteremia due to streptococcus, CHF, thrombocyopenia, chronic pain, generalized weakness, (B) leg weakness, chronic would of extremity, numbness, polymicrobial bacterial infection, constipation, MRSA cellulitis, chronic anemia. Patient presents with clinical signs and symptoms consistent with dx, as demonstrated by the following impairment level findings/functional limitations: Impairements in ADL/IADL and leisure activities, decreased desktop operator strength during assessment although pts behaviors indicate that he is not performing his strength testing as best as he could as he indicates that he can hold a fork and was not even close to gripping at all, decreased (B) UE ROM, pt reports pain in his whole body, decreased cognitive ability to make safe decisions, high risk for re-admission. AMPAC score 12 Patient is assessed as a high [id number] complexity based on the following: History: see above Examination: see functional limitations as noted above Presentation: evolving Decision Making: AMPAC score 12 GOALS Goals x1 week 1. Grooming- standing at sink pt will be able to brush his teeth with min (A) 2. Dressing- pt will be (I) UE and mod (I) LE in seated position 3. Bathing- sitting in chair with max (A) set up/clean up (I) UE and min (A) LE 4. Toileting- on toilet (I) 5. Eating- (I) PLAN OF CARE/TREATMENT PLAN: 1x/day, 3 days/ week x 1week Initiate Occupational Therapy Services for bathing, dressing, grooming, toileting, eating, transfer training. DISCHARGE RECOMMENDATIONS OT recommends home with supervision due to pts decreased safety awareness, and high risk for readmission due to pts inability to perform care for himself. TREATMENT TIME/MINUTES/CODES [id number] Cayla Leung OTR/[facility]
[2021-09-18] MEDS: Acetaminophen 325 MG TAB 650 MG PO ×2 (10:35→14:24)
[2021-09-18] MEDS: Silver sulfaDIAZINE 1% 25 GM TUBE TP (10:36)
[2021-09-18] MEDS: Lachydrin 12% LOTION 225 GM BTL TP (10:36)
[2021-09-18] MEDS: traZODone 50 MG TAB PO (10:36)
--- NOTE | 2021-09-18 13:54 | PT.INTREAT ---
Date of service: 09/18/21 Time of Service: 11:18 PT Notes Visit Reasons: Lower Extremity Cellulitis Inpatient Physical Therapy Treatment Note [facility] Date: 09/18/2021 PRECAUTIONS: Fall, WBAT B SUBJECTIVE: Jackson is agreeable to participating in PT. He reports that he does not feel well, and that he has nowhere to go when he is discharged. He reports that he has pins and needles in his leg with gait training OBJECTIVE: PAIN: Patient c/o pain in B LE with gait training pins and needles BED MOBILITY/TRANSFERS Supine-sit: I Sit-stand: S Stand-sit: S GAIT Assistive Device: FWW Weight bearing: WBAT B Assist: SBA Distance: 250' Deviation: Wide ELISA, anteroflexed trunk posture, minimal knee flexion bilaterally (per patient: baseline gait mechnics) ASSESSMENT: Patient demonstrates poor gait mechanics with use of FWW, which is reportedly his baseline due to chronic spinal issues. He demonstrates independence with bed mobility at this time. PLAN: Continue with global strengthening and gait training for improved mobility and activity tolerance. TREATMENT CODE/TIME: 20 minutes; 75283 (11:18)
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
[2021-09-18 17:45] VITALS: BP 103/74; PULSE 89; RESP 19; TEMP 35.8; O2SAT 94
[2021-09-18] MEDS: Lidocaine 5% Patch 1 PATCH TP (19:56)
[2021-09-18] MEDS: Atorvastatin 40 MG TAB PO (19:56)
[2021-09-18 23:25] VITALS: BP 100/71; PULSE 86; RESP 19; TEMP 36.2; O2SAT 93
[2021-09-19] MEDS: Lactulose 20 GM/30 ML CUP 45 GM PO ×2 (07:43→21:04)
[2021-09-19] MEDS: Ascorbic Acid 500 MG TAB PO ×2 (07:44→21:07)
[2021-09-19] MEDS: Spironolactone 50 MG TAB PO (07:44)
[2021-09-19] MEDS: Thiamine 100 MG TAB PO (07:44)
[2021-09-19] MEDS: Gabapentin 300 MG CAP 900 MG PO ×3 (07:44→21:05)
[2021-09-19] MEDS: Magnesium Oxide 400 MG TAB PO ×2 (07:44→21:07)
[2021-09-19] MEDS: Ferrous Sulfate 325 MG TAB PO ×2 (07:44→21:06)
[2021-09-19] MEDS: Pantoprazole 20 MG TABCR PO (07:44)
[2021-09-19] MEDS: Finasteride 5 MG TAB PO (07:44)
[2021-09-19] MEDS: levoFLOXacin 250 MG TAB 750 MG PO (07:44)
[2021-09-19] MEDS: Aspirin E.C. 81 MG TABEC PO (07:45)
[2021-09-19] MEDS: Multivitamin TAB 1 TAB PO (07:45)
[2021-09-19] MEDS: traZODone 50 MG TAB PO (07:45)
[2021-09-19] MEDS: Lachydrin 12% LOTION 225 GM BTL TP (07:45)
[2021-09-19] MEDS: Tamsulosin 0.4 MG CAPCR 0.8 MG PO (07:45)
[2021-09-19] MEDS: Furosemide 20 MG TAB 40 MG PO ×2 (07:45→16:08)
[2021-09-19] MEDS: DULoxetine 30 MG CAP 60 MG PO (07:45)
[2021-09-19] MEDS: Patch Removal 1 EACH TP (07:46)
[2021-09-19] MEDS: Silver sulfaDIAZINE 1% 25 GM TUBE TP (07:46)
[2021-09-19 07:54] VITALS: BP 135/85; PULSE 85; RESP 18; TEMP 36.2; O2SAT 94
--- NOTE | 2021-09-19 10:23 | PTTR_ITS ---
Date of service: 09/19/21 Time of Service: 08:40 PT Notes Visit Reasons: Lower Extremity Cellulitis Inpatient Physical Therapy Treatment Note [facility] Date: 09/19/2021 PRECAUTIONS: Fall, WBAT B SUBJECTIVE: Jackson is agreeable to participating in PT. He reports I hurt all over today. He states that he continues to be stressed regarding lack of housing and social support. He also reports that he did not sleep well. OBJECTIVE: PAIN: Patient c/o general, whole body pain with all activity BED MOBILITY/TRANSFERS Supine-sit: I Sit-supine: I Sit-stand: S Stand-sit: S GAIT Assistive Device: FWW Weight bearing: WBAT B Assist: SBA Distance: 250' Deviation: Wide ELISA, anteroflexed trunk posture, minimal knee flexion luis angel aterally (per patient: baseline gait mechanics), standing rest t/o due to global pain STAIRS: Up/down 3x4 and 2x6 using B rails and a step-to pattern with supervision ASSESSMENT: Patient demonstrates poor gait mechanics with use of FWW, which is reportedly his baseline due to chronic spinal issues. He demonstrates independence with bed mobility at this time. He c/o global pain with all acti vity today, which appeared to be a limiting factor. PLAN: Continue with global strengthening and gait training for improved mobility and activity tolerance. TREATMENT CODE/TIME: 34 minutes; 03322 x2 (08:42)
[2021-09-19] MEDS: QUEtiapine 25 MG TAB PO ×2 (14:21→21:06)
[2021-09-19] MEDS: Acetaminophen 325 MG TAB 650 MG PO (14:21)
[2021-09-19 14:59] VITALS: BP 104/79; PULSE 84; RESP 18; TEMP 36.1; O2SAT 98
--- NOTE | 2021-09-19 16:31 | W.PM.PROGNOT ---
Date of Service Date of service: 09/19/21 Time of Service: 15:31 Subjective Subjective Patient reports: still having pain, tolerating a regular diet, voiding w/o difficulty and bowel movement; denies diarrhea or shortness of breath Interval history since last seen: Jackson complained of his body requiring more pain medication his pain is 10 out of 10. On exam he is asleep, difficult to arouse and appears comfortable. He currently is receiving morphine 30 mg by mouth; scheduled twice a day. He has Tylenol ordered and has not been offered any; we will offer Tylenol with the morphine after discussion with Dr. Clemens recommendation to start Seroquel. Today, started Seroquel 25 mg 3 times daily scheduled. On re-exam, he was sleeping, difficult to arouse and did not appear to be uncomfortable. He also has a lidocaine patch ordered. When asked where the pain is he reports his entire body. After speaking with the nurse caring for him, we agree that we will continue this plan and he will update us in regards to any more pain uncontrolled by current plan. Discussed with Dr. Mcmillan Objective Last Vital Signs Temp 36.1 C L 09/19/21 14:59 Pulse 84 09/19/21 14:59 Resp 18 09/19/21 14:59 BP 104/79 09/19/21 14:59 Pulse Ox 98 09/19/21 14:59
[2021-09-19] MEDS: Nicotine 14 MG/24 HR PATCH TD (18:29)
[2021-09-19] MEDS: Atorvastatin 40 MG TAB PO (21:06)
[2021-09-19] MEDS: Lidocaine 5% Patch 1 PATCH TP (21:08)
[2021-09-19 23:16] VITALS: BP 108/69; PULSE 72; RESP 18; TEMP 36.4; O2SAT 92
[2021-09-20 07:00] VITALS: BP 102/72; PULSE 82; RESP 18; TEMP 36; O2SAT 89
[2021-09-20] MEDS: Gabapentin 300 MG CAP 900 MG PO ×3 (07:44→19:30)
[2021-09-20] MEDS: Finasteride 5 MG TAB PO (07:45)
[2021-09-20] MEDS: Pantoprazole 20 MG TABCR PO (07:45)
[2021-09-20] MEDS: Tamsulosin 0.4 MG CAPCR 0.8 MG PO (07:45)
[2021-09-20] MEDS: traZODone 50 MG TAB PO (07:45)
[2021-09-20] MEDS: Nicotine 14 MG/24 HR PATCH TD (07:45)
[2021-09-20] MEDS: Ascorbic Acid 500 MG TAB PO ×2 (07:45→19:28)
[2021-09-20] MEDS: Furosemide 20 MG TAB 40 MG PO ×2 (07:45→16:26)
[2021-09-20] MEDS: Spironolactone 50 MG TAB PO (07:45)
[2021-09-20] MEDS: Ferrous Sulfate 325 MG TAB PO ×2 (07:45→19:28)
[2021-09-20] MEDS: Multivitamin TAB 1 TAB PO (07:46)
[2021-09-20] MEDS: QUEtiapine 25 MG TAB PO ×3 (07:46→19:29)
[2021-09-20] MEDS: Thiamine 100 MG TAB PO (07:46)
[2021-09-20] MEDS: Magnesium Oxide 400 MG TAB PO ×2 (07:46→19:29)
[2021-09-20] MEDS: levoFLOXacin 250 MG TAB 750 MG PO (07:47)
[2021-09-20] MEDS: Aspirin E.C. 81 MG TABEC PO (07:47)
[2021-09-20] MEDS: DULoxetine 30 MG CAP 60 MG PO (07:47)
[2021-09-20] MEDS: Lactulose 20 GM/30 ML CUP 45 GM PO (08:09)
[2021-09-20] MEDS: Patch Removal 1 EACH TP (08:10)
--- NOTE | 2021-09-20 12:20 | PT.INTREAT ---
PT Notes Visit Reasons: Lower Extremity Cellulitis SUBJECTIVE: Pt reports that he has been waiting for therapy today. Pt agreeable to participating with therapy. OBJECTIVE: ? PAIN: No complaint about pain offered for this session. ? BED MOBILITY/TRANSFERS? Sit-stand: SBA? Stand-sit: SBA? GAIT? Assistive Device: FWW? Weight bearing: Full Assist: CGA?for safety since pt has tendency to stand too far from FWW. ? Distance:?100'? Deviation: pt continues with not using walker correctly with pt standing too far from FWW or to close to the side.? THEREX: pt engaged with seated BLE AROM all planes [id number] each, seated BUE AROM all planes [id number] each with pt requiring verbal and visual cue for guidance and continuity with task.? ASSESSMENT: Pt tolerated activity well, with pt showing good FWW usage on the way back to his room, as well as good effort during therapeutic exercises with pt reporting pain on R shoulder movement beyond shoulder level. PLAN: Continue to focus on improved balance, ambulation and strengthening of core, UEs and LEs as able to tolerate. TREATMENT CODE/TIME: 26032 and 81936, 1:10 to 1:50 (40 minutes)
--- NOTE | 2021-09-20 12:26 | PTTR_ITS ---
PT Notes Visit Reasons: Lower Extremity Cellulitis SUBJECTIVE: Pt in bed when approached for therapy this morning. pt only wearing breifs and was provided with assistance with donning cut off pants prior to bed mobility and gait training. OBJECTIVE: ? PAIN: No complaint about pain offered for this session. ? BED MOBILITY/TRANSFERS? ? supine to EOB: 1HHA? Sit-stand: SBA? Stand-sit: SBA? EOB to supine: pt refused and insisted he would like to stay sitting on the EOB post therapy session. ? GAIT? Assistive Device: FWW? Weight bearing: Full Assist: CGA?for safety since pt has tendency to stand too far from FWW. ? Distance:?100'x2? Deviation: cue for safety with AD usage to stay in close proximity to AD to improve stability. ? THEREX: pt engaged with seated BLE AROM all planes [id number] each, seated BUE AROM all planes [id number] each with pt requiring verbal and visual cue for guidance and continuity with task.? ASSESSMENT: CUSTOMER SERVICE AGENT required to don complete PPE prior to session, Pt tolerated activity well, pt insistence on staying on the EOB reported to charge nurse for monitoring and safety. pt required max verbal cue for redirection since pt was insisting that hewas allowed to walk around the facility without PPE, pt able to get redirected and was restricted to going back and fort within the perimeter of pt room. PLAN: Continue to focus on improved balance, ambulation and strengthening of core, UEs and LEs as able to tolerate. TREATMENT CODE/TIME: 07666 and 54803 10:55 to 11:35 (40 minutes)
[2021-09-20] MEDS: Silver sulfaDIAZINE 1% 25 GM TUBE TP (13:15)
[2021-09-20] MEDS: Lachydrin 12% LOTION 225 GM BTL TP (13:15)
[2021-09-20 14:45] VITALS: BP 99/69; PULSE 77; RESP 17; TEMP 36.5; O2SAT 88
[2021-09-20] MEDS: Acetaminophen 325 MG TAB 650 MG PO (16:32)
[2021-09-20 18:46] VITALS: BP 109/72; PULSE 83; RESP 20; TEMP 36.5; O2SAT 92
[2021-09-20] MEDS: Atorvastatin 40 MG TAB PO (19:29)
[2021-09-20] MEDS: Lidocaine 5% Patch 1 PATCH TP (20:45)
[2021-09-21 00:37] VITALS: BP 96/69; PULSE 77; RESP 17; TEMP 36.8; O2SAT 91
[2021-09-21] MEDS: Acetaminophen 325 MG TAB 650 MG PO (01:11)
[2021-09-21 07:56] VITALS: BP 95/54; PULSE 79; RESP 18; TEMP 35.8; O2SAT 98
[2021-09-21] MEDS: Patch Removal 1 EACH TP (08:00)
[2021-09-21] MEDS: Lachydrin 12% LOTION 225 GM BTL TP (08:00)
[2021-09-21] MEDS: Silver sulfaDIAZINE 1% 25 GM TUBE TP (08:00)
[2021-09-21] MEDS: Nicotine 14 MG/24 HR PATCH TD (08:00)
[2021-09-21] MEDS: Multivitamin TAB 1 TAB PO (08:01)
[2021-09-21] MEDS: levoFLOXacin 250 MG TAB 750 MG PO (08:01)
[2021-09-21] MEDS: Magnesium Oxide 400 MG TAB PO ×2 (08:01→20:15)
[2021-09-21] MEDS: Tamsulosin 0.4 MG CAPCR 0.8 MG PO (08:01)
[2021-09-21] MEDS: Thiamine 100 MG TAB PO (08:01)
[2021-09-21] MEDS: Pantoprazole 20 MG TABCR PO (08:01)
[2021-09-21] MEDS: Ferrous Sulfate 325 MG TAB PO ×2 (08:01→20:15)
[2021-09-21] MEDS: DULoxetine 30 MG CAP 60 MG PO (08:01)
[2021-09-21] MEDS: Gabapentin 300 MG CAP 900 MG PO ×3 (08:01→20:15)
[2021-09-21] MEDS: Aspirin E.C. 81 MG TABEC PO (08:01)
[2021-09-21] MEDS: QUEtiapine 25 MG TAB PO ×3 (08:01→20:15)
[2021-09-21] MEDS: Furosemide 20 MG TAB 40 MG PO ×2 (08:01→15:41)
[2021-09-21] MEDS: Finasteride 5 MG TAB PO (08:01)
[2021-09-21] MEDS: Spironolactone 50 MG TAB PO (08:01)
[2021-09-21] MEDS: Ascorbic Acid 500 MG TAB PO ×2 (08:01→20:15)
[2021-09-21] MEDS: traZODone 50 MG TAB PO (08:01)
[2021-09-21 11:30] VITALS: BP 118/75; PULSE 77; RESP 14; TEMP 35.9; O2SAT 96
--- NOTE | 2021-09-21 11:59 | PTTR_ITS ---
PT Notes Visit Reasons: Lower Extremity Cellulitis SUBJECTIVE: Pt in recliner when approached for therapy this morning. Pt agreed to participating with therapy OBJECTIVE:? PAIN: No complaint about pain offered for this session. ? BED MOBILITY/TRANSFERS? Sit-stand: SBA? Stand-sit: SBA? EOB to supine: min A with BLE elevation to get centered in bed.? GAIT? Assistive Device: FWW? Weight bearing: Full Assist: CGA?for safety since pt has tendency to stand too far from FWW. ? Distance:?100' with 90degree turns to manage tight quarters of pt room? Deviation: cue for safety with AD usage to stay in close proximity to AD to improve stability. ? ASSESSMENT: LINUX UNIX SYSTEM ADMINISTRATOR required to don complete PPE prior to session, Pt started getting upset when pt was prevented from going outside the red line from the pt doorway, pt expressed this is useless if I don't get to go around the block, I normally go out with the other therapist. Pt refused further engagement and requested to go back in bed after gait training. PLAN: Continue to focus on improved balance, ambulation and strengthening of core, UEs and LEs as able to tolerate. TREATMENT CODE/TIME: 94351 10:55 to 11:20 (25 minutes)
[2021-09-21 15:16] VITALS: BP 101/74; PULSE 78; RESP 14; TEMP 36.3; O2SAT 93
[2021-09-21] MEDS: Lidocaine 5% Patch 1 PATCH TP (20:15)
[2021-09-21] MEDS: Atorvastatin 40 MG TAB PO (20:15)
[2021-09-21 22:54] VITALS: BP 106/65; PULSE 81; RESP 15; TEMP 36.9; O2SAT 92
[2021-09-22] MEDS: Acetaminophen 325 MG TAB 650 MG PO (04:32)
--- NOTE | 2021-09-22 08:15 | OT.INTREAT ---
Occupational Therapy Notes Occupational Therapy Inpatient Treatment Note Date: 09/22/21 PRECAUTIONS: Fall, standard, full SUBJECTIVE: Pt states that he is not dirty but will perform his ADLs if he has too. OBJECTIVE: PAIN: full body c/o pain FUNCTIONAL MOBILITY Sit-stand: (S) Stand-sit: (S) Bed-Chair: FWW (S) Chair-bed: FWW (S) BATHING: standing at sink, (I) washing face and lower upper body DRESSING: Upper Extremity: sitting in chair mod (A) with don and doffing shirt GROOMING: standing at sink with (S) (I) with shaving his face with good technique, no LOB EATING: max (A) opening and closing containers TREATMENT CODES/TIME: [id number], 35 minutes Cayla Leung OTR/L [facility]
[2021-09-22] MEDS: Silver sulfaDIAZINE 1% 25 GM TUBE TP (08:22)
[2021-09-22] MEDS: Tamsulosin 0.4 MG CAPCR 0.8 MG PO (08:23)
[2021-09-22] MEDS: Spironolactone 50 MG TAB PO (08:23)
[2021-09-22] MEDS: Ascorbic Acid 500 MG TAB PO ×2 (08:23→20:35)
[2021-09-22] MEDS: levoFLOXacin 250 MG TAB 750 MG PO (08:23)
[2021-09-22] MEDS: Nicotine 14 MG/24 HR PATCH TD (08:23)
[2021-09-22] MEDS: Magnesium Oxide 400 MG TAB PO ×2 (08:23→20:35)
[2021-09-22] MEDS: Lachydrin 12% LOTION 225 GM BTL TP (08:23)
[2021-09-22] MEDS: Gabapentin 300 MG CAP 900 MG PO ×3 (08:23→20:35)
[2021-09-22] MEDS: Multivitamin TAB 1 TAB PO (08:24)
[2021-09-22] MEDS: Furosemide 20 MG TAB 40 MG PO ×2 (08:24→15:34)
[2021-09-22] MEDS: traZODone 50 MG TAB PO (08:24)
[2021-09-22] MEDS: Aspirin E.C. 81 MG TABEC PO (08:24)
[2021-09-22] MEDS: DULoxetine 30 MG CAP 60 MG PO (08:24)
[2021-09-22] MEDS: Finasteride 5 MG TAB PO (08:24)
[2021-09-22] MEDS: Ferrous Sulfate 325 MG TAB PO ×2 (08:24→20:35)
[2021-09-22] MEDS: QUEtiapine 25 MG TAB PO ×3 (08:24→20:35)
[2021-09-22] MEDS: Thiamine 100 MG TAB PO (08:24)
[2021-09-22] MEDS: Pantoprazole 20 MG TABCR PO (08:24)
[2021-09-22] MEDS: Patch Removal 1 EACH TP (08:24)
--- NOTE | 2021-09-22 09:43 | NUR.NOTE ---
patient asked nursing for more ice cream. Nurse stated that patient could not have more at this time and would have to limit how much ice cream patient eats. This would have been patients 10th ice cream since 6am today. Patient became upset stated some choice words and said that he would not take any ice cream at a later time since patient could not have ice cream now. Patient also stated that he wants to talk to charge nurse. Charge nurse notified. Nursing Note:
[2021-09-22 10:16] VITALS: BP 104/74; PULSE 72; RESP 16; TEMP 36; O2SAT 90
--- NOTE | 2021-09-22 12:45 | NUR.NOTE ---
Patient asked for more ice cream at this time, [facility] told patient that they needed to quickly check in with the Nurse. Patient then yelled at [facility] stating You f bches never let me have what I want, this is fsharona stupid patient repeated to state profanities at [facility] even after politely being asked to stop. [facility] lef the room and returned shortly after with the ice cream the patient had requested. Patient stated Now was it that jonny hard? Nursing Note:
[2021-09-22 15:26] VITALS: BP 105/73; PULSE 73; RESP 19; TEMP 35.8; O2SAT 94
--- NOTE | 2021-09-22 17:00 | PTTR_ITS ---
Date of service: 09/22/21 PT Notes Visit Reasons: Lower Extremity Cellulitis Physical Therapy Treatment Note [facility] [place], [place] Date: 09/22/2021 SUBJECTIVE: Patient has a lot of complaints about every little thing regarding his care. He complained about not being able to eat ice cream. Wondered why nobody has sent his soiled t-shirt to the [facility]. OBJECTIVE:? PAIN: Reported discomfort in B legs with the R being more affected than the L ? BED MOBILITY/TRANSFERS: Supine to sit: independent Sit to supine: independent ? Sit-stand: independent? Stand-sit: independent ? GAIT? Assistive Device: FWW? Weight bearing: Full Assist: independent ? Distance:?250 feet ? Deviation: Patient may be independent in the hallway if he is compliant with safety recommendations. ? ASSESSMENT: Patient is able to demonstrate and is aware of safety recommendations but is not fully complaint 100% of the time. This had been how patient had carried himself in the past which can increase his risk for falls anywhere he goes. Due to patient's non-compliance prognosis for further improvement is poor. He will benefit from a supervised home setting as his ability for sound decision-making regarding his overall care has been impaired. Will plan to discharge patient as of today at highest functional level. CM and care team has been made aware of this plan in morning meeting. PLAN: Continue to focus on improved balance, ambulation and strengthening of core, UEs and LEs as able to tolerate. TREATMENT CODE/TIME: 72387 for 2 units.
--- NOTE | 2021-09-22 19:00 | PT.INDS ---
Date of service: 09/22/21 PT Notes Visit Reasons: Lower Extremity Cellulitis Physical Therapy Swing BED Level I Discharge Summary Date: 09/22/2021 Dates of Servcice: 09/17/2021 through 09/22/2021 This is a clinical summary of care provided for the duration of dates listed above. No charge was made in the completion of this documentation. Referring Doctor: Flex Mcmillan MD PT Orders: PT CONSULT: Extended stay weakness Precautions:? Activity as tolerated.? Contact precautions in place. Patient Profile/Admitting Diagnosis: Jackson is a 61-year-old male with chronic cutaneous venous stasis ulcer,? chronic cutaneous venous stasis dermatitis of bilateral lower extremities, bilateral lower leg cellulitis, generalized weakness, EtOH dependence, cirrhosis of liver, diabetic peripheral neuropathy, urinary retention, and depression.? Patient is readmitted to this hospital after discharge from yesterday due to homelessness under swing bed II level of care for continued wound management and functional mobility training. PMHX: All Active Problems? Venous stasis ulcer (Acute) Bacteremia due to Streptococcus (Acute) Acute on chronic diastolic (congestive) heart failure (Acute) Thrombocytopenia (Acute) Chronic pain (Chronic) Generalized weakness (Acute) Bilateral leg weakness (Acute) Chronic wound of extremity (Acute) Bilateral leg weakness (Acute) Chronic back pain (Acute) Chronic leg pain (Acute) Chronic neck pain (Acute) Chronic back pain (Acute) Numbness (Acute) Polymicrobial bacterial infection (Acute) Constipation (Chronic) MRSA cellulitis (Acute) Chronic anemia (Acute) Pressure ulcers of skin of multiple topographic sites (Acute) Chronic cutaneous venous stasis ulcer (Chronic) Chronic venous stasis dermatitis of both lower extremities (Acute) Polysubstance abuse (Acute) Discharge planning issues (Acute) GERD (gastroesophageal reflux disease) (Chronic) Alcoholic cirrhosis of liver (Chronic) Continuous chronic alcoholism (Chronic 01/15/13) Medical History? Acute alcohol intoxication Alcohol dependence Anemia Arthritis Bilateral leg edema Chronic pain Cirrhosis of liver Diabetic peripheral neuropathy Encephalopathy, hepatic Hepatitis C Hyperlipidemia Knee pain, right TIA (transient ischemic attack) TIA (transient ischemic attack) Ulnar neuropathy Urinary retention Surgical History? H/O cervical spine surgery Hx of total knee arthroplasty Social History/Home Situation: Has been in and out of this hospital due to noncompliance with medical treatment, homelessness, and impaired health-related decision-making skills. ?Modified independent for up to 1000 feet of level surfaces using 4-wheeled walker. Equipment Owned/DME: 4WW, FWW Subjective: NT. See most recent MEDIEVAL ENGLISH LITERATURE PROFESSOR notes. Objective: General Observation: NT. See most recent MEDIEVAL ENGLISH LITERATURE PROFESSOR notes. Mental Status: NT. See most recent MEDIEVAL ENGLISH LITERATURE PROFESSOR notes. Pain: NT. See most recent MEDIEVAL ENGLISH LITERATURE PROFESSOR notes. ROM: Right Upper Extremity: ? Shoulder Flexion WFL. Shoulder abduction WFL. Elbow flexion WFL. Wrist flexion WFL. Functional opening and closing of hand WFL. Left Upper Extremity:? Shoulder Flexion WFL. Shoulder abduction WFL. Elbow flexion WFL. Wrist flexion WFL. Functional opening and closing of hand WFL. Right Lower Extremity: Hip flexion WFL. Hip abduction WFL. Knee flexion WFL. Ankle dorsiflexion -20 degrees.? Ankle plantarflexion WFL. Left Lower Extremity: Hip flexion WFL. Hip abduction WFL. Knee flexion WFL. Ankle dorsiflexion -20 degrees.? Ankle plantarflexion WFL. Strength: Right Upper Extremity: Shoulder flexors 4-/5. Shoulder abductors 4-/5. Elbow flexors 4-/5. Elbow extensors 4-/5. Coyote Hunter functional. Left Upper Extremity: Shoulder flexors 4-/5. Shoulder abductors 4-/5. Elbow flexors 4-/5. Elbow extensors 4-/5. Coyote Hunter functional. Right Lower Extremity: Hip flexors 4/5. Hip abductors 4/5. Knee flexors 4/5. Knee extensors 4/5. Ankle dorsiflexors 3-/5. Ankle plantarflexors 4/5. Left Lower Extremity: Hip flexors 4/5. Hip abductors 4/5. Knee flexors 4/5. Knee extensors 4/5. Ankle dorsiflexors 3-/5. Ankle plantarflexors 4/5. Sensation: Diminished as to pain and pressure on bilateral lower extremities due to chronic peripheral neuropathies. Tingling in B legs and feet. Bed Mobility/Transfers: Supine to sit independent Sit to stand independent Stand to sit independent Bed to chair independent Chair to bed independent Gait: Up to 500 feet using FWW with three standing rest at least due to B LE discomfort from leg wounds and chroninc peripheral neuropathy in B legs. Not fully receptive and compliant with safety recommendations for walker management and correct gait pattern and therefore may require distant supervision for safety. Balance: Static Sitting: Normal Dynamic Sitting: Normal Static Standing: Fair Dynamic Standing: Fair Special Tests: Mobility Limitations Standardized Measure [facility] AM-PAC 6 clicks Basic Mobility Inpatient Short Form: Raw Score: 24 ? CMS Score: 0% deficit? ? ? ASSESSMENT: 1. Generalized weakness Patient is able to perform transfer and mobility task performance requiring distant supervision covering up to 500 feet of level surface ambulation with occasional standing rests when his legs would start to hurt and fatigue.? Jackson is able to verbalize safety techniques for transfers and ambulation but is not fully compliant with observing them each time he moves nor is he fully receptive to verbal cueing for safe strategies. He hs been made independent inside his room and requires distant supervision in the hallway. He has been educated on room exercises that he can do to maximize strength gains however has not been 100% compliant with consistent completion of them. He is discontinued from PT services at highest functional level. 2.? Repeated falls and impaired safety awareness Jackson demonstrates impairment with safety awareness and impulsivity which have resulted to repeated falls and long-term complications.?Has been in and out of this hospital due to noncompliance with medical treatment, homelessness, and impaired health-related decision-making skills. He would therefore benefit from a supervised home environment where his nutritional intake,? healthcare decisions/choices,? medication management are addressed to reduce rate of re-hospitlaization. Risk for falls is also increased by discomfort from B LE wounds with pain report of up to 5/10 in B legs while walking and chrominc preipheral neuropathy in B LE. Goals: Goals X1 week 1. Supine-Sit independent MET 2. Sit-Supine independent MET 3. Sit-Stand independent MET 4. Stand-Sit independent MET 5. Bed-Chair independent MET 6. Chair-Bed independent MET 7.? Independent with gait on level surfaces with use of least restrictive device for at least 500 feet without report of pain nor dyspnea NOT MET, Now at highest functional level. 8. Good static and dynamic standing balance/tolerance MET DISCHARGE RECOMMENDATIONS: [] ? Home with no services [] [] ? Home with services [] [] ? Home with outpatient PT [] [] ? SNF for continued rehabilitation [] [] ? Cloth Laminating Supervisor Care [] [] ? SNF versus LTC based on ability to participate and progress [] [X] ? Supervised home environment.? Home when medically cleared by hospitalist.? Jackson demonstrates impairment with safety awareness which has resulted to repeated falls and long-term complications.? He would benefit from a supervised home environment where his nutritional intake,? healthcare decisions/choices,? medication management are addressed to reduce rate of rehospitalization.? PT/OT for safety recommendations and patient training once new supervised home environment is secured for him. TREATMENT CODE/TIME: AK Thank you for the opportunity to participate in the care of this patient. Adela Meraz PT, DPT, CLT [facility] [place], [place]
[2021-09-22] MEDS: Atorvastatin 40 MG TAB PO (20:35)
[2021-09-22] MEDS: Lidocaine 5% Patch 1 PATCH TP (20:36)
[2021-09-23 03:29] VITALS: BP 103/67; PULSE 80; RESP 20; TEMP 36.7; O2SAT 97
[2021-09-23] MEDS: Ferrous Sulfate 325 MG TAB PO ×2 (09:18→20:48)
[2021-09-23] MEDS: Thiamine 100 MG TAB PO (09:18)
[2021-09-23] MEDS: Finasteride 5 MG TAB PO (09:18)
[2021-09-23] MEDS: Furosemide 20 MG TAB 40 MG PO ×2 (09:18→15:08)
[2021-09-23] MEDS: traZODone 50 MG TAB PO (09:18)
[2021-09-23] MEDS: Pantoprazole 20 MG TABCR PO (09:18)
[2021-09-23] MEDS: Multivitamin TAB 1 TAB PO (09:19)
[2021-09-23] MEDS: Ascorbic Acid 500 MG TAB PO ×2 (09:19→20:49)
[2021-09-23] MEDS: Spironolactone 50 MG TAB PO (09:19)
[2021-09-23] MEDS: QUEtiapine 25 MG TAB PO ×3 (09:19→20:49)
[2021-09-23] MEDS: Magnesium Oxide 400 MG TAB PO ×2 (09:19→20:49)
[2021-09-23] MEDS: levoFLOXacin 250 MG TAB 750 MG PO (09:20)
[2021-09-23] MEDS: DULoxetine 30 MG CAP 60 MG PO (09:20)
[2021-09-23] MEDS: Gabapentin 300 MG CAP 900 MG PO ×3 (09:20→20:48)
[2021-09-23] MEDS: Aspirin E.C. 81 MG TABEC PO (09:20)
[2021-09-23] MEDS: Tamsulosin 0.4 MG CAPCR 0.8 MG PO (09:20)
[2021-09-23] MEDS: Nicotine 14 MG/24 HR PATCH TD (09:21)
[2021-09-23] MEDS: Lactulose 20 GM/30 ML CUP 45 GM PO (09:22)
[2021-09-23] MEDS: Silver sulfaDIAZINE 1% 25 GM TUBE TP (09:24)
[2021-09-23] MEDS: Patch Removal 1 EACH TP (09:24)
[2021-09-23] MEDS: Lachydrin 12% LOTION 225 GM BTL TP (09:24)
[2021-09-23 11:54] VITALS: BP 106/73; PULSE 78; RESP 16; TEMP 36.5; O2SAT 96
--- NOTE | 2021-09-23 13:57 | W.PM.PROGNOT ---
Date of Service Date of service: 09/23/21 Time of Service: 13:57 Assessment and Plan Assessment and plan (1) Bacteremia due to Streptococcus: Status: Acute Assessment and plan: will complete 2 weeks of levaquin based on cultures. 1st negative set obtained on September 14 will continue treatment through September 28. will check limited echo to evaluate valves. (2) Chronic venous stasis dermatitis of both lower extremities: Status: Acute Assessment and plan: continue wound care per wound care team. continues to improve. (3) Depression: Status: None Assessment and plan: As for mood symptoms, he is taking duloxetine which appears to be effective at managing acute depression and irritability. He may benefit from low dose quetiapine (25 mg TID PRN) if agitation increases. (4) Continuous chronic alcoholism: Status: Chronic Assessment and plan: There is a good chance he suffers from alcohol related cognitive impairment. More formal evaluation of cognitive function may be helpful either through MOCA assessment or neurology consultation. continue thiamine. (5) Discharge planning issues: Status: Acute Assessment and plan: case management following for discharge planning. referrals pending. discussed with DR Byers Subjective Subjective Patient reports: no new complaints, tolerating liquids well, tolerating a regular diet and afebrile Interval history since last seen: requested alejandro be removed, requiring straight cath's for urinary retention. Exam Const General: cooperative, comfortable, no acute distress and well developed Nutritional Appearance: obese Orientation: alert, awake and oriented x3 HENMT Head: normal to inspection, normocephalic and atraumatic Ears: external ears normal Eyes General: appearance normal, both eyes and all related structures Visual Blair: normal visual blair by confrontation Alignment and Position: alignment normal Eyelids: eyelids normal Pupils: PERRL EOM: EOM intact bilaterally Neck Neck: normal visual inspection and full ROM Chest Chest: normal inspection of the chest Resp Effort & Inspection: normal respiratory effort and able to speak in complete sentences Cardio Jugular venous pressure: no JVD Rate: regular rate Rhythm: regular rhythm Heart Sounds: no murmurs GI Inspection: normal to inspection Palpation: soft Auscultation: normal bowel sounds General: deferred Skin General skin exam: other (dressings intact, see nurses notes for wound description) Neuro General: patient alert, patient awake, patient oriented x3 and moves all extremities Extrem General: full ROM Objective Last Vital Signs Temp 36.5 C 09/23/21 11:54 Pulse 78 09/23/21 11:54 Resp 16 09/23/21 11:54 BP 106/73 09/23/21 11:54 Pulse Ox 96 09/23/21 11:54
[2021-09-23 14:48] VITALS: BP 111/77; PULSE 79; RESP 16; TEMP 36.7; O2SAT 92
[2021-09-23] MEDS: Lidocaine 5% Patch 1 PATCH TP (20:49)
[2021-09-23] MEDS: Atorvastatin 40 MG TAB PO (20:49)
[2021-09-23 23:15] VITALS: BP 111/77; PULSE 80; RESP 18; TEMP 36.6; O2SAT 94
--- NOTE | 2021-09-24 00:17 | NUR.NOTE ---
Patient rang his called portillo stating he wanted ice-cream and that he has not gotten any ice-cream since alise. He further demanded to speak to the MD carrero because he needs more ice-cream because he is not getting enough. Patient was reminded that he is diabetic and his blood sugars has been running high. Patient told this nurse to, fuck off, and he will not stop ringing tonight until he gets more ice-cream.
[2021-09-24 07:03] LABS: Abs Immature Grans 0.17 10^3/uL (0.0-0.06); Absolute Basophil Count 0.04 10^3/uL (0.0-0.2); Absolute Eosinophil Count 0.08 10^3/uL (0.0-0.7); Absolute Lymphocyte Count 1.37 10^3/uL (1.2-3.4); Absolute Monocyte Count 0.46 10^3/uL (0.1-0.8); Absolute Neutrophil Count 4.81 10^3/uL (1.2-6.7); Basophils % 0.6; Eosinophils % 1.2; HCT 35.3 % (40.0-50.0); HGB 11.3 g/dL (13.5-17.5); Immature Grans % 2.5; Lymphocytes % 19.8; MCH 25.8 pg (27.0-33.0); MCV 81 fL (80-95); MPV 11.3 fL (8.0-11.0); Monocytes % 6.6; Neutrophils % 69.3; Platelet Count 125 10^3/uL (130-400); RBC 4.38 10^6/uL (4.36-5.78); RDW 19.1 % (11.8-14.1); RDW-SD 54.8 fL; WBC 6.93 10^3/uL (4.4-10.8)
[2021-09-24 07:14] LABS: ALT 20 U/L (16-63); AST 24 U/L (15-37); Albumin 3.1 g/dL (3.4-5.0); Alkaline Phosphatase 87 U/L (46-116); Anion Gap 5.9 mmol/L (3-11); BUN 27 mg/dL (7-18); Bilirubin, Total 0.3 mg/dL (0.2-1.0); CO2 33.1 mmol/L (21.0-32.0); CREATININE 1.4 mg/dL (0.70-1.30); Calcium 9.4 mg/dL (8.5-10.1); Chloride 92 mmol/L (98-107); Estimated GFR 51.87 (mL/min/1.73m2); Glucose 123 mg/dL (74-106); Magnesium 2.3 mg/dL (1.8-2.4); Potassium 4.7 mmol/L (3.5-5.1); Sodium 131 mmol/L (136-145); Total Protein 8.7 g/dL (6.4-8.2)
[2021-09-24] MEDS: Nicotine 14 MG/24 HR PATCH TD (08:22)
[2021-09-24] MEDS: Tamsulosin 0.4 MG CAPCR 0.8 MG PO (08:22)
[2021-09-24] MEDS: Finasteride 5 MG TAB PO (08:23)
[2021-09-24] MEDS: Furosemide 20 MG TAB 40 MG PO ×2 (08:23→16:03)
[2021-09-24] MEDS: Pantoprazole 20 MG TABCR PO (08:23)
[2021-09-24] MEDS: traZODone 50 MG TAB PO (08:23)
[2021-09-24] MEDS: DULoxetine 30 MG CAP 60 MG PO (08:23)
[2021-09-24] MEDS: Aspirin E.C. 81 MG TABEC PO (08:24)
[2021-09-24] MEDS: Ferrous Sulfate 325 MG TAB PO ×2 (08:24→21:33)
[2021-09-24] MEDS: Magnesium Oxide 400 MG TAB PO ×2 (08:24→21:33)
[2021-09-24] MEDS: Ascorbic Acid 500 MG TAB PO ×2 (08:24→21:33)
[2021-09-24] MEDS: levoFLOXacin 250 MG TAB 750 MG PO (08:25)
[2021-09-24] MEDS: Thiamine 100 MG TAB PO (08:25)
[2021-09-24] MEDS: Gabapentin 300 MG CAP 900 MG PO ×3 (08:25→21:33)
[2021-09-24] MEDS: Spironolactone 50 MG TAB PO (08:25)
[2021-09-24] MEDS: Multivitamin TAB 1 TAB PO (08:25)
[2021-09-24] MEDS: QUEtiapine 25 MG TAB PO ×3 (08:25→21:33)
[2021-09-24] MEDS: Patch Removal 1 EACH TP (08:27)
[2021-09-24 08:38] VITALS: BP 121/81; PULSE 88; RESP 17; TEMP 36.6; O2SAT 95
--- NOTE | 2021-09-24 11:14 | OTTR_ITS ---
Occupational Therapy Notes Occupational Therapy Inpatient Treatment Note Date: 09/24/21 PRECAUTIONS: Fall, standard, full SUBJECTIVE:?Pt states that he is willing to perform his ADLs today. OBJECTIVE:? PAIN: full body c/o pain ? FUNCTIONAL MOBILITY ? Sit-stand: (I) ? Stand-sit: (I) ?? BATHING:sitting on side of the bed, (I) washing face and lower upper body, denies lower body DRESSING:? Upper Extremity: sitting on side of the bed mod (A) with don and usman shirt, pt states that he cannot do this (I) ? TREATMENT CODES/TIME:?66912, 20 minutes? Cayla Leung, OTR/L [facility]
--- NOTE | 2021-09-24 11:15 | WOUNDCONS ---
- If Service Date Differs Date of service: 09/24/21 Time of Service: 11:15 Wound Initial Evaluation Narrative: 7 day follow up to the previous wound consult performed. Goal today is to evaluate the progress of treatment thus far. Figure out a new POC to continue have the wound heal and progress as to be able to discharge patient to the community. Close the wound. Patient has agreed to allow the follow up. Recent progress notes and other pertinent information were reviewed - Wound Right Anterior Tib/Fib(lower leg) Wound Type: Statis Ulcer Wound General Appearance: Bleeding, Unapproximated, Healing Well Wound Bed Greatest Portion: Red (Granulation) Wound Surrounding Tissue Appearance: Normal/Healthy Percent of Wound Bed Granulated/Red: 100 Percent of Wound Bed Slough/Yellow: 0 Percent of Wound Bed Eschar/Black: 0 Wound Length: 1.9 cm Wound Width: 3.2 cm Wound Depth: 0.2 cm Wound Drainage Amount: Minimal Wound Drainage Odor: None/Absent Wound Drainage Description: Bloody Wound Topical Solution/Irrigant: Antibiotic Irrigant Wound Debridement Method: Gauze Wound Debridement Result: Healthy Tissue Revealed Wound Debridement Amount of Tissue Removed: Minimal Right Posterior Medial Tib/Fib(lower leg) Wound Type: Statis Ulcer Wound General Appearance: Reddened, Healing Well Wound Bed Greatest Portion: Red (Granulation) Wound Surrounding Tissue Appearance: Edges Rolled Percent of Wound Bed Granulated/Red: 100 Percent of Wound Bed Slough/Yellow: 0 Percent of Wound Bed Eschar/Black: 0 Wound Length: 3.5 cm Wound Width: 4.8 cm Wound Depth: 0.2 cm Wound Drainage Amount: Minimal Wound Drainage Odor: None/Absent Wound Drainage Description: Bloody Wound Topical Solution/Irrigant: Antibiotic Irrigant Wound Debridement Method: Gauze Wound Debridement Result: Healthy Tissue Revealed Wound Debridement Amount of Tissue Removed: Minimal - Circulation, Sensation, Motion Edema Degree: 2+ Peripheral Pulse Strength: Normal Capillary Refill: Less than 3 seconds Sensation Description: Pain Skin Temperature: Warm Skin Color: Normal - Pain Pain Level: 8 Pain Scale Used: Visual Analog Scale 0-10 Pain Description: Chronic Slough is no longer present in the wound bed. At this point it would be best to add Collagen to the wound bed. Continue to compress both legs with melissa wraps 12 hours on and 12 hours off as patient can tolerate. Patient still feels weak to ambulate, but stated all in all legs feel better. - Photo Photo: - Treatment/Dressing Change Cleanse With: Anasept Dressing Types: Collagen (Promagran Prism, Hydrocollid (Duoderm), Mepilex w/Border - Recomendation Recomendation:: Right anterior leg. Cleanse with Anasept spray, pat dry. Cover with Mepilex 4X4 border dressing. Change every 3 days or PRN. Right Posterior medial leg. Cleanse with Anasept spray, pat dry. Apply Saline moistened Promagen prism to cover the wound bed. Cover with a Duoderm dressing. Change every 3 days or PRN. Apply melissa wraps to compress legs. 12 hours on, 12 hours off. Physcian/Nurse Practioner Notified: Yes (Renate Hyde NP) Treatment Time - Time Total Time Spent with Patient: 45 minutes - Patient Will be Seen Weekly Treatment: 2x/wk
[2021-09-24 15:18] VITALS: BP 114/72; PULSE 75; RESP 18; TEMP 36.4; O2SAT 96
[2021-09-24] MEDS: Lidocaine 5% Patch 1 PATCH TP (21:32)
[2021-09-24] MEDS: Atorvastatin 40 MG TAB PO (21:33)
[2021-09-24 23:28] VITALS: BP 108/68; PULSE 81; RESP 18; TEMP 35.8; O2SAT 91
[2021-09-25] MEDS: Biotene Mouthwash 237 ML BTL MM (00:25)
[2021-09-25] MEDS: QUEtiapine 25 MG TAB PO ×3 (08:05→21:23)
[2021-09-25] MEDS: Tamsulosin 0.4 MG CAPCR 0.8 MG PO (08:05)
[2021-09-25] MEDS: levoFLOXacin 250 MG TAB 750 MG PO (08:05)
[2021-09-25] MEDS: Spironolactone 50 MG TAB PO (08:06)
[2021-09-25] MEDS: Ferrous Sulfate 325 MG TAB PO ×2 (08:06→21:22)
[2021-09-25] MEDS: Ascorbic Acid 500 MG TAB PO ×2 (08:06→21:23)
[2021-09-25] MEDS: Thiamine 100 MG TAB PO (08:06)
[2021-09-25] MEDS: traZODone 50 MG TAB PO (08:06)
[2021-09-25] MEDS: Magnesium Oxide 400 MG TAB PO ×2 (08:07→21:23)
[2021-09-25] MEDS: Aspirin E.C. 81 MG TABEC PO (08:07)
[2021-09-25] MEDS: Furosemide 20 MG TAB 40 MG PO ×2 (08:07→15:06)
[2021-09-25] MEDS: Gabapentin 300 MG CAP 900 MG PO ×3 (08:07→21:22)
[2021-09-25] MEDS: DULoxetine 30 MG CAP 60 MG PO (08:07)
[2021-09-25] MEDS: Multivitamin TAB 1 TAB PO (08:08)
[2021-09-25] MEDS: Finasteride 5 MG TAB PO (08:08)
[2021-09-25] MEDS: Nicotine 14 MG/24 HR PATCH TD (08:08)
[2021-09-25] MEDS: Pantoprazole 20 MG TABCR PO (08:08)
[2021-09-25] MEDS: Patch Removal 1 EACH TP (08:15)
--- NOTE | 2021-09-25 08:15 | OTTR_ITS ---
Occupational Therapy Notes Occupational Therapy Inpatient Treatment Note Date: 09/25/21 PRECAUTIONS: Fall, Contact, Full SUBJECTIVE: Pt states that he is doing well, he does report pain in his (B) LE , back and neck. He notes that he is having a good day so far today. OBJECTIVE: PAIN:c/o pain in (B) LE, back and neck FUNCTIONAL MOBILITY Rolling L/R: (I) Supine-sit: (I) Sit-supine: (I) Sit-stand: (I) Stand-sit: (I) Strength Testing- Fats And Oils Loader strength 4/5 throughout (B) BATHING: Pt reports that he performed this early this morning. DRESSING: Lower Extremity: max (A) don and doffing (B) socks EATING: sitting on side of the bed, (I) opening salt and pepper packets, mod (A) with opening containers like creamer due to pts decline in fine motor. Cutting food (I) and drinking liquids (I). TREATMENT CODES/TIME: 72473, 20 minutes, (08:00) Cayla Leung OTR/[facility]
[2021-09-25 08:25] VITALS: BP 118/72; PULSE 81; RESP 18; TEMP 36.8; O2SAT 93
[2021-09-25] MEDS: Lactulose 20 GM/30 ML CUP 45 GM PO (08:25)
--- NOTE | 2021-09-25 10:04 | CMPROGNOTE_ITS ---
- If Service Date Differs Date of service: 09/25/21 Time of Service: 10:04 Care Management Progress Note Jackson's wounds continue to heal. He is now requiring dressing changes every 3 days instead of daily. Referrals have been sent to 9 area SNFs for short or supervisor intermediates care. To date, no bed offers have been received. Jackson is currently without a residence and is unable to secure housing in any of the area shelters or hotel/motels due to past behaviors. Jackson indicated to CM that he is willing to move outside of [facility] if housing, even a rented room, can be found. CM will follow up on the referrals and investigate housing options in other areas.
--- NOTE | 2021-09-25 10:20 | CMACTNOTE_ITS ---
- If Service Date Differs Date of service: 09/25/21 Time of Service: 10:20 Care Management Activity Note S/O: Jackson enjoys watching TV, talking with friends on the phone and listening to music. He would enjoy Pet Therapy and Music Therapy if available. Jackson has not had many visitors but does enjoy conversation. BHUMIKA has been meeting with him daily and is assisting him with researching community supports. P: Jackson will remain at [facility] in SB-1 status until his wounds are sufficiently healed as to be able to be cared for in the community. There have been significant improvements noted.
[2021-09-25 15:25] VITALS: BP 101/72; PULSE 92; RESP 18; TEMP 36; O2SAT 92
[2021-09-25] MEDS: Lidocaine 5% Patch 1 PATCH TP (21:22)
[2021-09-25] MEDS: Atorvastatin 40 MG TAB PO (21:22)
[2021-09-25 23:47] VITALS: BP 113/79; PULSE 84; RESP 18; TEMP 36.3; O2SAT 94
[2021-09-25] MEDS: Acetaminophen 325 MG TAB 650 MG PO (23:54)
--- NOTE | 2021-09-26 04:29 | NUR.NOTE ---
Patient refusing to attempt to void at this time. I dont have to Last bladder scan = 738mL. Patient has not required straight cathing over the past few days. Patient encouraged to attempt a void samuel. Given patient delicate mood proccess'. Will attempt alternative void options to avoid behavioral escalation. Pt has shouted our profanities tonight already, regarding how many ice creams/ popicles and snacks he should be eating throughout the night as a DM pt. Pt has already eaten tristan crackers and peanut butter, three ice creams and five SF popsicles.
--- NOTE | 2021-09-26 05:47 | NUR.NOTE ---
Patient refused to be straight cath'd this am. States, I still dont need to pee!
[2021-09-26 07:43] VITALS: BP 106/62; PULSE 84; RESP 16; TEMP 36.2; O2SAT 93
[2021-09-26] MEDS: Gabapentin 300 MG CAP 900 MG PO ×3 (08:31→20:31)
[2021-09-26] MEDS: Ferrous Sulfate 325 MG TAB PO ×2 (08:32→20:31)
[2021-09-26] MEDS: Nicotine 14 MG/24 HR PATCH TD (08:32)
[2021-09-26] MEDS: Aspirin E.C. 81 MG TABEC PO (08:32)
[2021-09-26] MEDS: Tamsulosin 0.4 MG CAPCR 0.8 MG PO (08:32)
[2021-09-26] MEDS: DULoxetine 30 MG CAP 60 MG PO (08:32)
[2021-09-26] MEDS: Ascorbic Acid 500 MG TAB PO ×2 (08:32→20:31)
[2021-09-26] MEDS: levoFLOXacin 250 MG TAB 750 MG PO (08:32)
[2021-09-26] MEDS: traZODone 50 MG TAB PO (08:32)
[2021-09-26] MEDS: Finasteride 5 MG TAB PO (08:32)
[2021-09-26] MEDS: Furosemide 20 MG TAB 40 MG PO ×2 (08:32→16:38)
[2021-09-26] MEDS: Spironolactone 50 MG TAB PO (08:32)
[2021-09-26] MEDS: Pantoprazole 20 MG TABCR PO (08:32)
[2021-09-26] MEDS: Multivitamin TAB 1 TAB PO (08:32)
[2021-09-26] MEDS: Thiamine 100 MG TAB PO (08:32)
[2021-09-26] MEDS: Magnesium Oxide 400 MG TAB PO ×2 (08:32→20:32)
[2021-09-26] MEDS: QUEtiapine 25 MG TAB PO ×3 (08:33→20:32)
[2021-09-26] MEDS: Patch Removal 1 EACH TP (08:33)
[2021-09-26 15:30] VITALS: BP 111/72; PULSE 87; RESP 16; TEMP 36; O2SAT 97
[2021-09-26] MEDS: Lactulose 20 GM/30 ML CUP 45 GM PO (20:30)
[2021-09-26] MEDS: Atorvastatin 40 MG TAB PO (20:32)
[2021-09-26] MEDS: Lidocaine 5% Patch 1 PATCH TP (20:34)
[2021-09-26 23:45] VITALS: BP 108/74; PULSE 76; RESP 18; TEMP 36; O2SAT 92
[2021-09-27] MEDS: Lactulose 20 GM/30 ML CUP 45 GM PO ×2 (08:19→15:34)
[2021-09-27] MEDS: Ascorbic Acid 500 MG TAB PO ×2 (08:20→22:06)
[2021-09-27] MEDS: traZODone 50 MG TAB PO (08:20)
[2021-09-27] MEDS: Pantoprazole 20 MG TABCR PO (08:20)
[2021-09-27] MEDS: Spironolactone 50 MG TAB PO (08:21)
[2021-09-27] MEDS: Thiamine 100 MG TAB PO (08:21)
[2021-09-27] MEDS: QUEtiapine 25 MG TAB PO ×3 (08:21→22:06)
[2021-09-27] MEDS: Multivitamin TAB 1 TAB PO (08:22)
[2021-09-27] MEDS: Magnesium Oxide 400 MG TAB PO ×2 (08:22→22:06)
[2021-09-27] MEDS: Furosemide 20 MG TAB 40 MG PO ×2 (08:22→15:35)
[2021-09-27] MEDS: Tamsulosin 0.4 MG CAPCR 0.8 MG PO (08:23)
[2021-09-27] MEDS: DULoxetine 30 MG CAP 60 MG PO (08:23)
[2021-09-27] MEDS: Ferrous Sulfate 325 MG TAB PO ×2 (08:23→22:06)
[2021-09-27] MEDS: Gabapentin 300 MG CAP 900 MG PO ×3 (08:24→22:06)
[2021-09-27] MEDS: levoFLOXacin 250 MG TAB 750 MG PO (08:25)
[2021-09-27] MEDS: Aspirin E.C. 81 MG TABEC PO (08:26)
[2021-09-27] MEDS: Nicotine 14 MG/24 HR PATCH TD (08:27)
[2021-09-27] MEDS: Lachydrin 12% LOTION 225 GM BTL TP (10:26)
[2021-09-27] MEDS: Finasteride 5 MG TAB PO (10:27)
[2021-09-27] MEDS: Patch Removal 1 EACH TP (10:27)
[2021-09-27 14:06] VITALS: BP 83/59; PULSE 103; RESP 19; TEMP 37.1; O2SAT 92
[2021-09-27] MEDS: Lidocaine 5% Patch 1 PATCH TP (22:05)
[2021-09-27] MEDS: Atorvastatin 40 MG TAB PO (22:06)
[2021-09-28 00:16] VITALS: BP 115/79; PULSE 86; RESP 18; TEMP 36.3; O2SAT 98
[2021-09-28] MEDS: Melatonin 3 MG TAB 6 MG PO (01:35)
[2021-09-28] MEDS: Acetaminophen 325 MG TAB 650 MG PO (01:35)
[2021-09-28] MEDS: Spironolactone 50 MG TAB PO (08:14)
[2021-09-28] MEDS: Finasteride 5 MG TAB PO (08:14)
[2021-09-28] MEDS: Furosemide 20 MG TAB 40 MG PO ×2 (08:15→15:50)
[2021-09-28] MEDS: levoFLOXacin 250 MG TAB 750 MG PO (08:15)
[2021-09-28] MEDS: DULoxetine 30 MG CAP 60 MG PO (08:15)
[2021-09-28] MEDS: Gabapentin 300 MG CAP 900 MG PO ×3 (08:15→21:25)
[2021-09-28] MEDS: Aspirin E.C. 81 MG TABEC PO (08:15)
[2021-09-28] MEDS: Thiamine 100 MG TAB PO (08:16)
[2021-09-28] MEDS: Nicotine 14 MG/24 HR PATCH TD (08:16)
[2021-09-28] MEDS: Ascorbic Acid 500 MG TAB PO ×2 (08:16→21:25)
[2021-09-28] MEDS: Ferrous Sulfate 325 MG TAB PO ×2 (08:17→21:25)
[2021-09-28] MEDS: Multivitamin TAB 1 TAB PO (08:17)
[2021-09-28] MEDS: Tamsulosin 0.4 MG CAPCR 0.8 MG PO (08:17)
[2021-09-28] MEDS: traZODone 50 MG TAB PO (08:17)
[2021-09-28] MEDS: Magnesium Oxide 400 MG TAB PO ×2 (08:17→21:26)
[2021-09-28] MEDS: Pantoprazole 20 MG TABCR PO (08:17)
[2021-09-28] MEDS: QUEtiapine 25 MG TAB PO ×3 (08:17→21:25)
[2021-09-28] MEDS: Patch Removal 1 EACH TP (08:19)
[2021-09-28 18:14] VITALS: BP 116/76; PULSE 86; RESP 18; TEMP 36.5; O2SAT 98
[2021-09-28] MEDS: Lidocaine 5% Patch 1 PATCH TP (21:25)
[2021-09-28] MEDS: Atorvastatin 40 MG TAB PO (21:25)
[2021-09-29 07:56] VITALS: BP 107/68; PULSE 89; RESP 18; TEMP 36.3; O2SAT 97
[2021-09-29] MEDS: DULoxetine 30 MG CAP 60 MG PO (08:27)
[2021-09-29] MEDS: Aspirin E.C. 81 MG TABEC PO (08:27)
[2021-09-29] MEDS: Multivitamin TAB 1 TAB PO (08:27)
[2021-09-29] MEDS: Tamsulosin 0.4 MG CAPCR 0.8 MG PO (08:27)
[2021-09-29] MEDS: traZODone 50 MG TAB PO (08:27)
[2021-09-29] MEDS: Magnesium Oxide 400 MG TAB PO ×2 (08:28→21:10)
[2021-09-29] MEDS: Ascorbic Acid 500 MG TAB PO ×2 (08:28→21:11)
[2021-09-29] MEDS: QUEtiapine 25 MG TAB PO ×3 (08:28→21:09)
[2021-09-29] MEDS: Spironolactone 50 MG TAB PO (08:28)
[2021-09-29] MEDS: Gabapentin 300 MG CAP 900 MG PO ×3 (08:28→21:09)
[2021-09-29] MEDS: Ferrous Sulfate 325 MG TAB PO ×2 (08:28→21:10)
[2021-09-29] MEDS: Finasteride 5 MG TAB PO (08:28)
[2021-09-29] MEDS: Thiamine 100 MG TAB PO (08:28)
[2021-09-29] MEDS: Furosemide 20 MG TAB 40 MG PO ×2 (08:28→15:38)
[2021-09-29] MEDS: Pantoprazole 20 MG TABCR PO (08:28)
[2021-09-29] MEDS: Nicotine 14 MG/24 HR PATCH TD (08:29)
[2021-09-29] MEDS: Patch Removal 1 EACH TP (08:30)
--- NOTE | 2021-09-29 08:46 | OTDS_ITS ---
Occupational Therapy Notes Occupational Therapy Inpatient Discharge Summary Date: 09/29/21 Dates of Service: 09/18/21-09/29/21 Referring Doctor:Renate Hyde NP OT Orders: Non Urgent Precautions: Contact, fall, full PATIENT PROFILE/ADMITTING DIAGNOSIS: Pt is a 61 year old male who is admitted via SWG B1 for the following dx including venous stasis ulcer, bacteremia due to streptococcus, CHF, thrombocyopenia, chronic pain, generalized weakness, (B) leg weakness, chronic would of extremity, numbness, polymicrobial bacterial infection, constipation, MRSA cellulitis, chronic anemia, opioid abuse, depression, GERD, alcoholic cirrhosis of liver and continuous chornic alcoholism. Past Medical History: All Active Problems?(Updated 09/17/21 @ 00:05 by JUSTICE MARIN) Venous stasis ulcer (Acute) Bacteremia due to Streptococcus (Acute) Acute on chronic diastolic (congestive) heart failure (Acute) Thrombocytopenia (Acute) Chronic pain (Chronic) Generalized weakness (Acute) Bilateral leg weakness (Acute) Chronic wound of extremity (Acute) Bilateral leg weakness (Acute) Chronic back pain (Acute) Chronic leg pain (Acute) Chronic neck pain (Acute) Chronic back pain (Acute) Numbness (Acute) Polymicrobial bacterial infection (Acute) Constipation (Chronic) MRSA cellulitis (Acute) Chronic anemia (Acute) Pressure ulcers of skin of multiple topographic sites (Acute) Chronic cutaneous venous stasis ulcer (Chronic) Chronic venous stasis dermatitis of both lower extremities (Acute) Polysubstance abuse (Acute) Discharge planning issues (Acute) GERD (gastroesophageal reflux disease) (Chronic) Alcoholic cirrhosis of liver (Chronic) Continuous chronic alcoholism (Chronic 01/15/13) Medical History? Acute alcohol intoxication Alcohol dependence Anemia Arthritis Bilateral leg edema Chronic pain Cirrhosis of liver Diabetic peripheral neuropathy Encephalopathy, hepatic Hepatitis C Hyperlipidemia Knee pain, right TIA (transient ischemic attack) TIA (transient ischemic attack) Ulnar neuropathy Urinary retention Surgical History? H/O cervical spine surgery Hx of total knee arthroplasty Social History/Home Situation: Pt states that he is homeless and that he cannot care for himself. He continues to say this multiple times throughout session. He states that he needs help with everything and doesn't understand why he needs to try to do it himself. He is discouraged with where he is in terms of his (I). Equipment owned/DME: None SUBJECTIVE:??Pt states that he is doing better. He notes that he is performing his ADLs in the morning (I) and states that he does not need OT's help at this time. He feels good about how he is doing. He reports that he remains homeless and this is bothersome to him. OBJECTIVE:? ROM: RUE Shoulder flexion to 145*, elbow wrists and digits WFL L UE Shoulder flexion to 145*, elbow wrists and digits WFL STRENGTH: RUE adaptive physical education specialist strength 0/5 for testing, otherwise 3-/5 throughout LUE adaptive physical education specialist strength 0/5 for testing, otherwise 3-/5 throughout FUNCTIONAL MOBILITY/ADLS:? BATHING pt refuses to perform but is clean with clean shaven which he notes he did this prior to OT arrival (I). DRESSING pt was able to (I) don and doff his shirt but notes that it took increased performance time. TOILETING NT EATING pt was sitting on the side of the bed (I) eating when OT arrived. BALANCE: Static sitting Normal Dynamic Sitting Good ASSESSMENT:?? Patient is a 61-year-old male referred to occupational therapy services with diagnosis of venous stasis ulcer, bacteremia due to streptococcus, CHF, thrombocyopenia, chronic pain, generalized weakness, (B) leg weakness, chronic would of extremity, numbness, polymicrobial bacterial infection, constipation, MRSA cellulitis, chronic anemia. Pt has made improvements in his functional (I). Although he takes increased performance time for his ADLs and performs them with fair technique, pt states that he feels that he is okay at this time and does not need further OT sessions. GOALS 1.? Grooming- standing at sink pt will be able to brush his teeth with min (A) 2.? Dressing- pt will be (I) UE and mod (I) LE in seated position- met 3.? Bathing- sitting in chair with max (A) set up/clean up (I) UE and min (A) LE- met pt performs this standing at sink 4.? Toileting- on toilet (I)- met 5.? Eating- (I)- met PLAN OF CARE/TREATMENT PLAN: Discharge from skilled OT services. DISCHARGE RECOMMENDATIONS OT recommends home with supervision due to pts d ecreased safety awareness, and high risk for readmission due to pts inability to perform care for himself. TREATMENT TIME/MINUTES/CODES no skilled services provided, OT had conversation with pt and plan was discussed to discharge. Cayla Leung OTR/[facility] [place]
[2021-09-29] MEDS: Lactulose 20 GM/30 ML CUP 45 GM PO (13:18)
[2021-09-29 15:21] VITALS: BP 111/78; PULSE 80; RESP 18; TEMP 36.4; O2SAT 95
[2021-09-29] MEDS: Acetaminophen 325 MG TAB 650 MG PO ×2 (15:57→21:09)
[2021-09-29 20:19] VITALS: BP 114/77; PULSE 82; RESP 18; TEMP 36.9; O2SAT 97
[2021-09-29] MEDS: Lidocaine 5% Patch 1 PATCH TP (21:09)
[2021-09-29] MEDS: Atorvastatin 40 MG TAB PO (21:10)
--- NOTE | 2021-09-29 22:52 | NUR.NOTE ---
Patient is requesting to see a Doctor tomorrow 09-29-21. Pt has concerns that he would like to discuss with MD and not with his nursing staff. Informed patient this assembly instructions writer would pass on the request to have an MD see him.
[2021-09-30] MEDS: Gabapentin 300 MG CAP 900 MG PO ×3 (07:21→20:11)
[2021-09-30] MEDS: Aspirin E.C. 81 MG TABEC PO (07:21)
[2021-09-30] MEDS: traZODone 50 MG TAB PO (07:22)
[2021-09-30] MEDS: Tamsulosin 0.4 MG CAPCR 0.8 MG PO (07:22)
[2021-09-30] MEDS: Nicotine 14 MG/24 HR PATCH TD (07:22)
[2021-09-30] MEDS: DULoxetine 30 MG CAP 60 MG PO (07:22)
[2021-09-30] MEDS: Finasteride 5 MG TAB PO (07:23)
[2021-09-30] MEDS: Magnesium Oxide 400 MG TAB PO ×2 (07:23→20:13)
[2021-09-30] MEDS: Multivitamin TAB 1 TAB PO (07:23)
[2021-09-30] MEDS: QUEtiapine 25 MG TAB PO ×3 (07:23→20:13)
[2021-09-30] MEDS: Pantoprazole 20 MG TABCR PO (07:23)
[2021-09-30] MEDS: Thiamine 100 MG TAB PO (07:23)
[2021-09-30] MEDS: Spironolactone 50 MG TAB PO (07:23)
[2021-09-30] MEDS: Ascorbic Acid 500 MG TAB PO ×2 (07:23→20:13)
[2021-09-30] MEDS: Ferrous Sulfate 325 MG TAB PO ×2 (07:23→20:13)
[2021-09-30] MEDS: Furosemide 20 MG TAB 40 MG PO ×2 (07:23→15:28)
[2021-09-30] MEDS: Patch Removal 1 EACH TP (07:24)
[2021-09-30] MEDS: Lactulose 20 GM/30 ML CUP 45 GM PO (13:39)
[2021-09-30 15:13] VITALS: BP 111/70; PULSE 88; RESP 18; TEMP 36.4; O2SAT 94
[2021-09-30 19:27] VITALS: BP 106/71; PULSE 85; RESP 18; TEMP 36.9; O2SAT 94
[2021-09-30] MEDS: Lidocaine 5% Patch 1 PATCH TP (20:11)
[2021-09-30] MEDS: Atorvastatin 40 MG TAB PO (20:12)
[2021-09-30] MEDS: Biotene Mouthwash 237 ML BTL MM (20:12)
[2021-09-30] MEDS: Acetaminophen 325 MG TAB 650 MG PO (20:13)
--- NOTE | 2021-10-01 02:57 | NUR.NOTE ---
Nursing Note: Jackson requested 2 ice creams Finger stick was 174 I offered him 1 since he had many already. Jackson start yelling at me that he wanted 2 and didnt give a F what I thought. I told him this is what I was instructed to do. He also said that he would ring his call portillo every minute till he gets what he wants.
--- NOTE | 2021-10-01 02:58 | NUR.NOTE ---
Patient rang at @2:56 stating he needed 2 ice-cream not one. Patient was informed that he had received several ice-creams throughout this shift also other snacks. He was offered diet jello which he adamantly refused. Patient then state, fuck you all. he then request my name which was given to him. He state he wanted to know the name of the girl that had seen him earlier. I corrected him and state the staff that saw him earlier, was the SAVINGS COUNSELOR he then screamed over the phone, what is her fucking name. At this point i asked not to scream at me and i reminded him that i have not spoken to him any form of disrespect manner and he should please do the same to me. He demanded for me to repeat my name to him which i did and he also demanded to know the spelling of name. Patient then left his room came out on the floor and was being raucous at that the nurses station. He state he will be making a complain and that we are all bitches. Mu the travel Nurse asked to stop cursing and yelling because people are sleeping which he ignored.
[2021-10-01 04:00] VITALS: PULSE 66; RESP 18; TEMP 36.6; O2SAT 96
--- NOTE | 2021-10-01 05:36 | NUR.NOTE ---
Blood sugar @ HS = 272. @02:52 = 174. See end of shift report for total shift intake.
[2021-10-01] MEDS: Acetaminophen 325 MG TAB 650 MG PO (06:31)
[2021-10-01 07:59] VITALS: BP 122/89; PULSE 78; RESP 17; TEMP 36.1; O2SAT 98
[2021-10-01] MEDS: Lachydrin 12% LOTION 225 GM BTL TP (08:58)
[2021-10-01] MEDS: Aspirin E.C. 81 MG TABEC PO (08:59)
[2021-10-01] MEDS: Ascorbic Acid 500 MG TAB PO ×2 (08:59→20:53)
[2021-10-01] MEDS: DULoxetine 30 MG CAP 60 MG PO (09:00)
[2021-10-01] MEDS: Ferrous Sulfate 325 MG TAB PO ×2 (09:00→20:53)
[2021-10-01] MEDS: Finasteride 5 MG TAB PO (09:00)
[2021-10-01] MEDS: Furosemide 20 MG TAB 40 MG PO ×2 (09:01→15:03)
[2021-10-01] MEDS: Magnesium Oxide 400 MG TAB PO ×2 (09:01→20:53)
[2021-10-01] MEDS: Gabapentin 300 MG CAP 900 MG PO ×3 (09:01→20:53)
[2021-10-01] MEDS: Lactulose 20 GM/30 ML CUP 45 GM PO ×3 (09:01→20:52)
[2021-10-01] MEDS: Nicotine 14 MG/24 HR PATCH TD (09:02)
[2021-10-01] MEDS: Multivitamin TAB 1 TAB PO (09:02)
[2021-10-01] MEDS: Patch Removal 1 EACH TP (09:03)
[2021-10-01] MEDS: QUEtiapine 25 MG TAB PO ×3 (09:03→20:53)
[2021-10-01] MEDS: Pantoprazole 20 MG TABCR PO (09:03)
[2021-10-01] MEDS: traZODone 50 MG TAB PO (09:05)
[2021-10-01] MEDS: Thiamine 100 MG TAB PO (09:05)
[2021-10-01] MEDS: Tamsulosin 0.4 MG CAPCR 0.8 MG PO (09:05)
[2021-10-01] MEDS: Spironolactone 50 MG TAB PO (09:05)
--- NOTE | 2021-10-01 15:21 | PDOC.CMPRO ---
- If Service Date Differs Date of service: 10/01/21 Time of Service: 15:21 Care Management Progress Note Jackson's discharge plan is unclear. He no longer requires daily dressing changes and his twice weekly wound care can be accomplished in the community. Jackson is currently homeless. Referrals were sent to many of the SNFs in the state but no bed offers were received. He has terminal worker Medicaid but does not have Choices for Care. This is a barrier to terminal worker placement in a SNF or AFC home.Today CM contacted [facility] and spoke with Shameka about Jackson. Full disclosure included information about his recent incarceration as well as some of the behaviors that have been barriers to placement. Clinical and demographic information was sent and Shameka stated that she will reach out to (Anabela) after the review is completed. Jackson was updated about this development. The current plan is for Jackson to discharge tomorrow and go to [place] to obtain his social security check. He does not have any money at the moment. An authorization was sent to [facility] for transportation for a 10 am package pick up, however no confirmation has been received. Unless a bed is secured at [facility] tomorrow, before discharge, follow up will need to be coordinated from the community.
--- NOTE | 2021-10-01 17:29 | WOUNDCONS ---
- If Service Date Differs Date of service: 10/01/21 Time of Service: 13:00 Wound Initial Evaluation Narrative: Follow up to a previous wound consult. Patient was verbally aggressive and resistive to care, he would not allow a photograph done - Wound Right Posterior Tib/Fib(lower leg) Wound Type: Statis Ulcer Wound General Appearance: Reddened, Draining, Bleeding, Unapproximated Wound Bed Greatest Portion: Red (Granulation) Percent of Wound Bed Granulated/Red: 100 Wound Length: 2.4 cm Wound Width: 5.7 cm Wound Depth: 0.1 cm Wound Drainage Amount: Minimal Wound Drainage Odor: None/Absent Wound Drainage Description: Bloody Wound Topical Solution/Irrigant: Antibiotic Irrigant Wound Debridement Method: Gauze Wound Debridement Result: Healthy Tissue Revealed - Circulation, Sensation, Motion Edema Degree: 2+ Peripheral Pulse Strength: Normal Capillary Refill: Less than 3 seconds Sensation Description: Within Normal Limits Skin Temperature: Warm Skin Color: Normal - Pain Pain Duration/Frequency: Intermittent Wound appears to continue to heal.. reccomend that current treatment continue another week - Treatment/Dressing Change Cleanse With: Anasept Dressing Types: Collagen (Promagran Prism, Hydrocollid (Duoderm) - Recomendation Recomendation:: continue current treatment for 1 more week
[2021-10-01] MEDS: Lidocaine 5% Patch 1 PATCH TP (20:52)
[2021-10-01] MEDS: Atorvastatin 40 MG TAB PO (20:53)
[2021-10-02 02:47] VITALS: BP 105/69; PULSE 102; RESP 17; TEMP 37; O2SAT 94
[2021-10-02 07:29] VITALS: BP 108/69; PULSE 76; RESP 18; TEMP 36.3; O2SAT 96
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
[2021-10-02] MEDS: Ascorbic Acid 500 MG TAB PO (09:12)
[2021-10-02] MEDS: Gabapentin 300 MG CAP 900 MG PO (09:12)
[2021-10-02] MEDS: Aspirin E.C. 81 MG TABEC PO (09:13)
[2021-10-02] MEDS: DULoxetine 30 MG CAP 60 MG PO (09:13)
[2021-10-02] MEDS: Pantoprazole 20 MG TABCR PO (09:13)
[2021-10-02] MEDS: Thiamine 100 MG TAB PO (09:13)
[2021-10-02] MEDS: Finasteride 5 MG TAB PO (09:13)
[2021-10-02] MEDS: Tamsulosin 0.4 MG CAPCR 0.8 MG PO (09:14)
[2021-10-02] MEDS: traZODone 50 MG TAB PO (09:14)
[2021-10-02] MEDS: Multivitamin TAB 1 TAB PO (09:14)
[2021-10-02] MEDS: Ferrous Sulfate 325 MG TAB PO (09:14)
[2021-10-02] MEDS: Magnesium Oxide 400 MG TAB PO (09:14)
[2021-10-02] MEDS: QUEtiapine 25 MG TAB PO (09:15)
[2021-10-02] MEDS: Spironolactone 50 MG TAB PO (09:15)
[2021-10-02] MEDS: Nicotine 14 MG/24 HR PATCH TD (09:15)
[2021-10-02] MEDS: Patch Removal 1 EACH TP (09:17)
[2021-10-02] MEDS: Furosemide 20 MG TAB 40 MG PO (09:38)
--- NOTE | 2021-10-02 12:14 | PDOC.CMDIS ---
- If Service Date Differs Date of service: 10/02/21 Time of Service: 12:14 LACE Index Scoring Tool - Questions: Length of Stay (in days): 14 or more Acuity (Admit via E.D.?): Yes Comorbidities: Liver or Renal Disease E.D. Visits: 20 - Answers: Total Score: 19 Risk of Readmission: High Risk Care Management Discharge Reason for Hospitalization: LE Cellulitis Discharge Plan: Jackson refused to review discharge information with RN, documents placed in his back pack. Jackson will discharge with transportation through [facility] to [place] to retrieve his social security check. Medications coordinated through [facility] in [place]. Shameka of [place] reports inability to admit Jackson due to behavioral concerns. Shortly after discharge, CM received call from [facility] stating Jackson exited [facility] vehicle in [facility] and refused transport to [place], as arranged. Patient/Family Education Needs: Review of discharge plan, discuss self care needs upon discharge Ask Me Three.
--- NOTE | 2021-10-06 16:05 | CMACTNOTE_ITS ---
- If Service Date Differs Date of service: 10/06/21 Time of Service: 16:05 Care Management Activity Note CM receives a phone call from ROYER Smith, animal care attendant at [facility]. Sarah advises that Jackson did not show for his scheduled appointment this morning (10/06/21 @ 10:40 am) for a dressing change. She states she attempted to reach Jackson by telephone but was unsuccessful. We discuss that prescriptions were sent to [facility] in [place] upon discharge from the hospital last but on the way to [place], Jackson changed his mind and decided to remain in [facility], so he likely has been without medication all weekend. Sarah will continue attempts at reaching him by telephone.
== END 2021-10-02 10:28 | disposition home or self-care (01) | DRG 593 ==
LOC: ER 19:04 → MS 09-17 07:24
PROVIDERS: Family Medicine; Nurse Practitioner Acute Care; Admitting Provider Internal Medicine; Emergency Provider Emergency Medicine; PCP Family Medicine; Visit Provider Internal Medicine
DX: L97.211 Non-pressure chronic ulcer of right calf limited to breakdown of skin (principal); I50.32 Chronic diastolic (congestive) heart failure; R78.81 Bacteremia; F10.20 Alcohol dependence, uncomplicated; D69.6 Thrombocytopenia, unspecified; G89.29 Other chronic pain; Z59.02 Unsheltered homelessness; M54.50 Low back pain, unspecified; R53.1 Weakness; R20.0 Anesthesia of skin; K59.00 Constipation, unspecified; F12.90 Cannabis use, unspecified, uncomplicated; I87.2 Venous insufficiency (chronic) (peripheral); F19.10 Other psychoactive substance abuse, uncomplicated; K21.9 Gastro-esophageal reflux disease without esophagitis; K70.30 Alcoholic cirrhosis of liver without ascites; E11.42 Type 2 diabetes mellitus with diabetic polyneuropathy; E78.5 Hyperlipidemia, unspecified; F17.210 Nicotine dependence, cigarettes, uncomplicated; F17.290 Nicotine dependence, other tobacco product, uncomplicated; I83.018 Varicose veins of right lower extremity with ulcer other part of lower leg; R33.9 Retention of urine, unspecified; F32.A Depression, unspecified; Z91.19 Patient's noncompliance with other medical treatment and regimen; L97.829 Non-pressure chronic ulcer of other part of left lower leg with unspecified severity; B95.0 Streptococcus, group A, as the cause of diseases classified elsewhere
CPT/HCPCS: 36415; 80053; 87635; 97110; 97116; 97162; 97167; 97530; 97535; 99285; 99305; 99309; Q3014; U0003; 83735; 85025; 86140; 99239; 99308; J3490

== ENCOUNTER 2021-10-02 19:10 | Emergency (ER) | payer MEDICAID, SELFPAY ==
[2021-10-02 19:17] VITALS: BP 126/80; PULSE 87; RESP 18; TEMP 36.5; O2SAT 97
[2021-10-02] MEDS: Furosemide 40 MG TAB PO (19:40)
--- NOTE | 2021-10-02 20:47 | ED.GENADUL_ITS ---
Discharge Plan Disposition Patient Disposition: HOME Condition: Stable Discharge Details Clinical Impression: Edema, peripheral Primary Care Provider: Sushil Figueroa ED Provider: Pretty Young Home Meds and New Rx's Prescriptions: Continued aspirin [Aspir-81] 81 MG tablet,delayed release (DR/EC) 81 mg PO DAILY atorvastatin [Lipitor] 40 MG tablet 40 mg PO QPM quetiapine 25 mg Tablet 25 mg PO TID Qty: 30 0RF morphine 30 mg Tablet Extended Release 30 mg PO BID Qty: 30 0RF atorvastatin 40 mg Tablet 40 mg PO QPM Qty: 30 1RF duloxetine 60 mg capsule,delayed release(DR/EC) 60 mg PO DAILY Qty: 30 1RF furosemide 20 mg Tablet 40 mg PO DAILY Qty: 60 1RF gabapentin 300 mg Capsule 900 mg PO TID Qty: 90 1RF lactulose 20 gram/30 mL Solution 45 g PO TID Qty: 1200 1RF spironolactone 50 mg Tablet 50 mg PO DAILY Qty: 30 1RF tamsulosin 0.4 mg Capsule 0.8 mg PO DAILY Qty: 30 1RF trazodone 50 mg Tablet 50 mg PO DAILY Qty: 30 1RF thiamine mononitrate (vit B1) [Vitamin B-1 (mononitrate)] 100 mg Tablet 100 mg PO DAILY Qty: 30 0RF morphine [MS Contin] 30 mg Tablet Extended Release 30 mg PO BID Qty: 30 0RF Discharge Instructions Additional Instructions: Our manager care management will contact you tomorrow to be sure you obtain your prescriptions please take all your prescribed medications or your health will not be controlled Referrals: Sushil Figueroa [Primary Care Provider] - Medical Decision Making Patient is speaking in complete sentences and has stable vitals He does have 2+ edema to bilateral lower extremities I do not see evidence of secondary infection He was given a dose of his Lasix, 40 mg and care management will be involved tomorrow to be sure the patient is able to fill his prescription He is discharged home in stable condition with stable vital Reviewed patient's discharge summary from today at 840 in the morning Reviewed patient's medication list Medical Records Medical records reviewed: Yes I reviewed the patient's medical records. Lab Data Lab results reviewed: Yes I reviewed the patient's lab results. HPI General Date/Time Provider Initiated Documentation: 10/02/21 19:12 . HPI Narrative: This 61-year-old male well-known to this facility and discharged approximately 11 hours prior to his reassessment in the emergency department presents with report of peripheral edema. He states that his legs are improved when he was discharged home. He has been ambulatory throughout the day and has not taken his prescribed medications. He states that he was unable to fill them as he did the not have a ride . He denies any chest pain or shortness of breath. He denies any fever or chills. He denies any falls or injuries. Related Data Home Medications Medication Instructions Recorded Confirmed atorvastatin 40 mg tablet (Lipitor) 40 mg PO QPM 08/19/16 10/02/21 aspirin 81 mg tablet,delayed 81 mg PO DAILY 03/15/17 10/02/21 release (Aspir-) atorvastatin 40 mg tablet 40 mg PO QPM #30 tabs 10/02/21 10/02/21 duloxetine 60 mg capsule,delayed 60 mg PO DAILY #30 caps 10/02/21 10/02/21 release furosemide 20 mg tablet 40 mg PO DAILY #60 tabs 10/02/21 10/02/21 gabapentin 300 mg capsule 900 mg PO TID #90 caps 10/02/21 10/02/21 lactulose 20 gram/30 mL oral 45 g (67.5 mL) PO TID #1,200 mL 10/02/21 10/02/21 solution morphine 30 mg tablet,extended 30 mg PO BID #30 tabs 10/02/21 10/02/21 release morphine 30 mg tablet,extended 30 mg PO BID #30 tabs 10/02/21 10/02/21 release (MS Contin) quetiapine 25 mg tablet 25 mg PO TID #30 tabs 10/02/21 10/02/21 spironolactone 50 mg tablet 50 mg PO DAILY #30 tabs 10/02/21 10/02/21 tamsulosin 0.4 mg capsule 0.8 mg PO DAILY #30 caps 10/02/21 10/02/21 thiamine mononitrate (vit B1) 100 100 mg PO DAILY #30 tabs 10/02/21 10/02/21 mg tablet (Vitamin B-1 (mononitrate)) trazodone 50 mg tablet 50 mg PO DAILY #30 tabs 10/02/21 10/02/21 Previous Rx's Medication Instructions Recorded atorvastatin 40 mg tablet 40 mg PO QPM #30 tabs 10/02/21 duloxetine 60 mg capsule,delayed 60 mg PO DAILY #30 caps 10/02/21 release furosemide 20 mg tablet 40 mg PO DAILY #60 tabs 10/02/21 gabapentin 300 mg capsule 900 mg PO TID #90 caps 10/02/21 lactulose 20 gram/30 mL oral 45 g (67.5 mL) PO TID #1,200 mL 10/02/21 solution morphine 30 mg tablet,extended 30 mg PO BID #30 tabs 10/02/21 release morphine 30 mg tablet,extended 30 mg PO BID #30 tabs 10/02/21 release (MS Contin) quetiapine 25 mg tablet 25 mg PO TID #30 tabs 10/02/21 spironolactone 50 mg tablet 50 mg PO DAILY #30 tabs 10/02/21 tamsulosin 0.4 mg capsule 0.8 mg PO DAILY #30 caps 10/02/21 thiamine mononitrate (vit B1) 100 100 mg PO DAILY #30 tabs 10/02/21 mg tablet (Vitamin B-1 (mononitrate)) trazodone 50 mg tablet 50 mg PO DAILY #30 tabs 10/02/21 Allergies Allergy/AdvReac Type Severity Reaction Status Date / Time venom-honey bee Allergy Severe signs of Unverified 10/02/21 19:22 stroke pregabalin [From Lyrica] Allergy Mild Unverified 10/02/21 19:22 varenicline tartrate AdvReac Unknown Nausea Unverified 10/02/21 19:22 [From Chantix] General Stated Complaint: Vascular SCOT: 4 Review of Systems All systems reviewed & are unremarkable except as noted in HPI and below PFSH All Active Problems (Updated 10/02/21 @ 19:30 by RANDY Whyte) Edema, peripheral (Acute) Venous stasis ulcer (Acute) Bacteremia due to Streptococcus (Acute) Acute on chronic diastolic (congestive) heart failure (Acute) Thrombocytopenia (Acute) Chronic leg pain (Acute) Chronic neck pain (Acute) Chronic back pain (Acute) Numbness (Acute) Polymicrobial bacterial infection (Acute) Constipation (Chronic) MRSA cellulitis (Acute) Chronic anemia (Acute) Pressure ulcers of skin of multiple topographic sites (Acute) Chronic cutaneous venous stasis ulcer (Chronic) Chronic venous stasis dermatitis of both lower extremities (Acute) Polysubstance abuse (Acute) Discharge planning issues (Acute) GERD (gastroesophageal reflux disease) (Chronic) Alcoholic cirrhosis of liver (Chronic) Continuous chronic alcoholism (Chronic 01/15/13) Medical History Acute alcohol intoxication Alcohol dependence Anemia Arthritis Bilateral leg edema Chronic pain Cirrhosis of liver Diabetic peripheral neuropathy Encephalopathy, hepatic Hepatitis C Hyperlipidemia Knee pain, right TIA (transient ischemic attack) TIA (transient ischemic attack) Ulnar neuropathy Urinary retention Surgical History H/O cervical spine surgery Hx of total knee arthroplasty Social History Smoking/Tobacco Use Status: Current every day Tobacco Type: cigarettes and e- cigarettes Smoking risk assessment performed?: Yes Alcohol Intake: current Alcohol Intake frequency: 3 or more drinks per day Alcohol type: beer, wine and hard liquor Drug use: Occasionally Substance use type: marijuana Housing: apartment Number of Children: 3 What type of physical activity do you participate in: walking Do you feel safe at home: Yes Do you feel safe in your relationship?: Yes Exam Const General: cooperative, comfortable and no acute distress Eyes Pupils: PERRL Resp Effort & Inspection: normal respiratory effort Cardio Rate: regular rate GI Inspection: normal to inspection Neuro General: patient alert and patient oriented x3 Extrem Other: 2 +edema to bilateral lower extremities with excoriation Course Vital Signs Vital signs: Vital Signs Temperature 36.5 C 10/02/21 19:17 Pulse 87 10/02/21 19:17 Respiratory Rate 18 10/02/21 19:17 Blood Pressure 126/80 10/02/21 19:17 Pulse Oximetry 97 10/02/21 19:17 Temperature 36.5 C 10/02/21 19:17 Temperature Source Temporal Artery Scan 10/02/21 19:17 Pulse 87 10/02/21 19:17 Respiratory Rate 18 10/02/21 19:17 Respiratory Effort 10/02/21 19:20 Blood Pressure 126/80 10/02/21 19:17 Pulse Oximetry 97 10/02/21 19:17 Oxygen Delivery Method Room Air 10/02/21 19:17 Oxygen Flow Rate 0 10/02/21 19:17 Pain Level 10 10/02/21 19:17
== END 2021-10-02 19:41 | disposition home or self-care (01) ==
PROVIDERS: Emergency Provider Physician Assistant; PCP Family Medicine
DX: R60.0 Localized edema (principal); Z91.14 Patient's other noncompliance with medication regimen; E11.40 Type 2 diabetes mellitus with diabetic neuropathy, unspecified
CPT/HCPCS: 99283

== ENCOUNTER 2021-10-02 22:05 | Emergency (ER) | payer MEDICAID, SELFPAY ==
[2021-10-02 22:15] VITALS: BP 144/88; PULSE 82; RESP 18; TEMP 36.6; O2SAT 99
--- NOTE | 2021-10-02 22:23 | ED.GENADUL_ITS ---
Discharge Plan Disposition Patient Disposition: HOME Condition: Stable Discharge Details Clinical Impression: Chronic neck pain, Chronic back pain Primary Care Provider: Sushil Figueroa ED Provider: Bill Joseph Home Meds and New Rx's Prescriptions: Continued aspirin [Aspir-81] 81 MG tablet,delayed release (DR/EC) 81 mg PO DAILY atorvastatin [Lipitor] 40 MG tablet 40 mg PO QPM quetiapine 25 mg Tablet 25 mg PO TID Qty: 30 0RF morphine 30 mg Tablet Extended Release 30 mg PO BID Qty: 30 0RF atorvastatin 40 mg Tablet 40 mg PO QPM Qty: 30 1RF duloxetine 60 mg capsule,delayed release(DR/EC) 60 mg PO DAILY Qty: 30 1RF furosemide 20 mg Tablet 40 mg PO DAILY Qty: 60 1RF gabapentin 300 mg Capsule 900 mg PO TID Qty: 90 1RF lactulose 20 gram/30 mL Solution 45 g PO TID Qty: 1200 1RF spironolactone 50 mg Tablet 50 mg PO DAILY Qty: 30 1RF tamsulosin 0.4 mg Capsule 0.8 mg PO DAILY Qty: 30 1RF trazodone 50 mg Tablet 50 mg PO DAILY Qty: 30 1RF thiamine mononitrate (vit B1) [Vitamin B-1 (mononitrate)] 100 mg Tablet 100 mg PO DAILY Qty: 30 0RF morphine [MS Contin] 30 mg Tablet Extended Release 30 mg PO BID Qty: 30 0RF Discharge Instructions Instructions: Chronic Pain (ED) Additional Instructions: Follow up with your primary are provider within 1 week Medical Decision Making 61 yo male with multiple medical problems who was discharged earlier today after being admitted for wounds and possible wound infection for weeks, comes in with back pain. He was supposed to go to [place] and on the way there decided he didn't want to go so got out and came back here, was seen and discharged as he had no new acute issues. He checked back in after sitting in the wait room because he is currently homesless and is complaining of back pain. He states his whole body also hurts but has no localizing pain. He denies fevers, chills, difficulty urinating. He is able to ambulate with a walker without assistance. He has no midline stepoffs, no saddle anesthesia and normal sensation in the legs and arms. He had ct of his c/t/l spine and has had prior C spine fractures and his images were reviewed with his spine surgeon at [facility] [place] and there was no new fractures on their read. He denies new falls. I suspect this is his chronic back pain given he was just discharged earlier and had no new falls. He has no findings on exam or history to suggest cauda equina or spinal epidural abscess. Given no new trauma do not feel fracture is likely. I discussed with him my opinion but did offer to have him stay and discuss with care management tomorrow. He became verbally abusive towards me and staff and did not want to discuss with care management. He was discharged in stable condition and advised to f/u with pcp and advised he can return for any new or worsening symptoms. He did not want his discharge paperwork and said he was just going to tear it up. Differential Diagnosis Differential Diagnosis: chronic pain, spasm, strain HPI General Mode of arrival: ambulatory . Date/Time Provider Initiated Documentation: 10/02/21 22:10 . Limitations to Documentation: no limitations . Information obtained by: patient . History of Present Illness 61 year old M presents to the emergency department with the chief complaint of back pain, described as moderate, Quality is described as aching, and is localized to the back. Patient reports no radiation. Patient started experiencing this year(s) and it has been constant. No relieving factors improve symptom(s), No exacerbating factors reported . Related Data Home Medications Medication Instructions Recorded Confirmed atorvastatin 40 mg tablet (Lipitor) 40 mg PO QPM 08/19/16 10/02/21 aspirin 81 mg tablet,delayed 81 mg PO DAILY 03/15/17 10/02/21 release (Aspir-) atorvastatin 40 mg tablet 40 mg PO QPM #30 tabs 10/02/21 10/02/21 duloxetine 60 mg capsule,delayed 60 mg PO DAILY #30 caps 10/02/21 10/02/21 release furosemide 20 mg tablet 40 mg PO DAILY #60 tabs 10/02/21 10/02/21 gabapentin 300 mg capsule 900 mg PO TID #90 caps 10/02/21 10/02/21 lactulose 20 gram/30 mL oral 45 g (67.5 mL) PO TID #1,200 mL 10/02/21 10/02/21 solution morphine 30 mg tablet,extended 30 mg PO BID #30 tabs 10/02/21 10/02/21 release morphine 30 mg tablet,extended 30 mg PO BID #30 tabs 10/02/21 10/02/21 release (MS Contin) quetiapine 25 mg tablet 25 mg PO TID #30 tabs 10/02/21 10/02/21 spironolactone 50 mg tablet 50 mg PO DAILY #30 tabs 10/02/21 10/02/21 tamsulosin 0.4 mg capsule 0.8 mg PO DAILY #30 caps 10/02/21 10/02/21 thiamine mononitrate (vit B1) 100 100 mg PO DAILY #30 tabs 10/02/21 10/02/21 mg tablet (Vitamin B-1 (mononitrate)) trazodone 50 mg tablet 50 mg PO DAILY #30 tabs 10/02/21 10/02/21 Previous Rx's Medication Instructions Recorded atorvastatin 40 mg tablet 40 mg PO QPM #30 tabs 10/02/21 duloxetine 60 mg capsule,delayed 60 mg PO DAILY #30 caps 10/02/21 release furosemide 20 mg tablet 40 mg PO DAILY #60 tabs 10/02/21 gabapentin 300 mg capsule 900 mg PO TID #90 caps 10/02/21 lactulose 20 gram/30 mL oral 45 g (67.5 mL) PO TID #1,200 mL 10/02/21 solution morphine 30 mg tablet,extended 30 mg PO BID #30 tabs 10/02/21 release morphine 30 mg tablet,extended 30 mg PO BID #30 tabs 10/02/21 release (MS Contin) quetiapine 25 mg tablet 25 mg PO TID #30 tabs 10/02/21 spironolactone 50 mg tablet 50 mg PO DAILY #30 tabs 10/02/21 tamsulosin 0.4 mg capsule 0.8 mg PO DAILY #30 caps 10/02/21 thiamine mononitrate (vit B1) 100 100 mg PO DAILY #30 tabs 10/02/21 mg tablet (Vitamin B-1 (mononitrate)) trazodone 50 mg tablet 50 mg PO DAILY #30 tabs 10/02/21 Allergies Allergy/AdvReac Type Severity Reaction Status Date / Time venom-honey bee Allergy Severe signs of Unverified 10/02/21 19:22 stroke pregabalin [From Lyrica] Allergy Mild Unverified 10/02/21 19:22 varenicline tartrate AdvReac Unknown Nausea Unverified 10/02/21 19:22 [From Chantix] General Stated Complaint: Recheck SCOT: 5 Review of Systems All systems reviewed & are unremarkable except as noted in HPI and below Constitutional Constitutional: Denies chills and Denies fever(s) ENT Ears, Nose, Mouth, and Throat: Denies change in voice Cardiovascular Cardiovascular: Denies chest pain and Denies dyspnea Respiratory Respiratory: Denies cough and Denies dyspnea Gastrointestinal Gastrointestinal: Denies abdominal pain, Denies nausea and Denies vomiting Genitourinary Genitourinary: Denies dysuria Integumentary/Breasts Skin/Breast: Denies rash PFSH All Active Problems (Updated 10/02/21 @ 22:25 by Bill Joseph MD) Edema, peripheral (Acute) Venous stasis ulcer (Acute) Bacteremia due to Streptococcus (Acute) Acute on chronic diastolic (congestive) heart failure (Acute) Thrombocytopenia (Acute) Chronic leg pain (Acute) Chronic neck pain (Acute) Chronic back pain (Acute) Numbness (Acute) Polymicrobial bacterial infection (Acute) Constipation (Chronic) MRSA cellulitis (Acute) Chronic anemia (Acute) Pressure ulcers of skin of multiple topographic sites (Acute) Chronic cutaneous venous stasis ulcer (Chronic) Chronic venous stasis dermatitis of both lower extremities (Acute) Polysubstance abuse (Acute) Discharge planning issues (Acute) GERD (gastroesophageal reflux disease) (Chronic) Alcoholic cirrhosis of liver (Chronic) Continuous chronic alcoholism (Chronic 01/15/13) Medical History Acute alcohol intoxication Alcohol dependence Anemia Arthritis Bilateral leg edema Chronic pain Cirrhosis of liver Diabetic peripheral neuropathy Encephalopathy, hepatic Hepatitis C Hyperlipidemia Knee pain, right TIA (transient ischemic attack) TIA (transient ischemic attack) Ulnar neuropathy Urinary retention Surgical History H/O cervical spine surgery Hx of total knee arthroplasty Social History Smoking/Tobacco Use Status: Current every day Tobacco Type: cigarettes and e- cigarettes Smoking risk assessment performed?: Yes Alcohol Intake: current Alcohol Intake frequency: 3 or more drinks per day Alcohol type: beer, wine and hard liquor Drug use: Occasionally Substance use type: marijuana Housing: apartment Number of Children: 3 What type of physical activity do you participate in: walking Do you feel safe at home: Yes Do you feel safe in your relationship?: Yes Exam Const General: no acute distress Orientation: alert HENMT Head: normal to inspection Ears: external ears normal General nose exam: external nose normal Mouth: moist mucous membranes Eyes General: appearance normal, both eyes and all related structures Neck Neck: normal visual inspection Resp Effort & Inspection: normal respiratory effort and able to speak in complete sentences Cardio Rate: regular rate Skin General skin exam: no rashes or lesions noted Neuro General: patient alert and patient oriented x3 Extrem General: capillary refill normal Psych Mental Status: mental status grossly normal Course Vital Signs Vital signs: Vital Signs Temperature 36.6 C 10/02/21 22:15 Pulse 82 10/02/21 22:15 Respiratory Rate 18 10/02/21 22:15 Blood Pressure 144/88 H 10/02/21 22:15 Pulse Oximetry 99 10/02/21 22:15 Temperature 36.6 C 10/02/21 22:15 Temperature Source Temporal Artery Scan 10/02/21 22:15 Pulse 82 10/02/21 22:15 Respiratory Rate 18 10/02/21 22:15 Respiratory Effort 10/02/21 22:19 Blood Pressure 144/88 H 10/02/21 22:15 Pulse Oximetry 99 10/02/21 22:15 Pain Level 10 10/02/21 22:15
== END 2021-10-02 22:26 | disposition home or self-care (01) ==
LOC: ER 22:26
PROVIDERS: Emergency Provider Emergency Medicine; PCP Family Medicine
DX: M54.2 Cervicalgia (principal); M54.9 Dorsalgia, unspecified; G89.29 Other chronic pain; E11.40 Type 2 diabetes mellitus with diabetic neuropathy, unspecified
CPT/HCPCS: 99281

== ENCOUNTER 2021-10-08 07:02 | Emergency (ER) | payer MEDICAID, SELFPAY ==
[2021-10-08 07:19] VITALS: BP 140/100; PULSE 90; RESP 16; TEMP 37; O2SAT 98
[2021-10-08 07:24] VITALS: RESP 16
--- NOTE | 2021-10-08 07:44 | W.ED.GENAD ---
Discharge Plan Disposition Patient Disposition: Eloped Condition: Stable Discharge Details Chief Complaint: GenMedical Clinical Impression: Homelessness Primary Care Provider: Sushil Figueroa ED Provider: Be Farrell Home Meds and New Rx's Prescriptions: No Action aspirin [Aspir-81] 81 MG tablet,delayed release (DR/EC) 81 mg PO DAILY atorvastatin [Lipitor] 40 MG tablet 40 mg PO QPM quetiapine 25 mg Tablet 25 mg PO TID Qty: 30 0RF morphine 30 mg Tablet Extended Release 30 mg PO BID Qty: 30 0RF atorvastatin 40 mg Tablet 40 mg PO QPM Qty: 30 1RF duloxetine 60 mg capsule,delayed release(DR/EC) 60 mg PO DAILY Qty: 30 1RF furosemide 20 mg Tablet 40 mg PO DAILY Qty: 60 1RF gabapentin 300 mg Capsule 900 mg PO TID Qty: 90 1RF lactulose 20 gram/30 mL Solution 45 g PO TID Qty: 1200 1RF spironolactone 50 mg Tablet 50 mg PO DAILY Qty: 30 1RF tamsulosin 0.4 mg Capsule 0.8 mg PO DAILY Qty: 30 1RF trazodone 50 mg Tablet 50 mg PO DAILY Qty: 30 1RF thiamine mononitrate (vit B1) [Vitamin B-1 (mononitrate)] 100 mg Tablet 100 mg PO DAILY Qty: 30 0RF morphine [MS Contin] 30 mg Tablet Extended Release 30 mg PO BID Qty: 30 0RF Medical Decision Making 61-year-old male known to previous ER visits and recent visit with admission for bilateral lower extremity edema and cellulitis requiring prolonged wound care and antibiotic therapy. Patient is homeless, he is a chronic alcoholic, he currently has no family with whom he interacts and no home to stay in. He has normal motor and sensory function. There is no evidence of traumatic injury. A medical screening exam was performed and the patient was offered care management services. Approximately 747 the patient walked out of the waiting room with his walker. He therefore left prior to discharge and absconded without instructions. HPI General Mode of arrival: ambulatory. Date/Time Provider Initiated Documentation: 10/08/21 07:03. Limitations to Documentation: no limitations. Information obtained by: patient. History of Present Illness 61 year old M presents to the emergency department with the chief complaint of Can't feel my arms and legs for 2 days, ambulatory, homeless, described as mild, Patient started experiencing this day(s) and it has been constant. No relieving factors improve symptom(s), No exacerbating factors reported . Patient notes other (No change to urine); denies weakness. Patient did receive the following treatments prior to arrival, none Related Data Home Medications Medication Instructions Recorded Confirmed atorvastatin 40 mg tablet (Lipitor) 40 mg PO QPM 08/19/16 10/08/21 aspirin 81 mg tablet,delayed 81 mg PO DAILY 03/15/17 10/08/21 release (Aspir-) atorvastatin 40 mg tablet 40 mg PO QPM #30 tabs 10/02/21 10/08/21 duloxetine 60 mg capsule,delayed 60 mg PO DAILY #30 caps 10/02/21 10/08/21 release furosemide 20 mg tablet 40 mg PO DAILY #60 tabs 10/02/21 10/08/21 gabapentin 300 mg capsule 900 mg PO TID #90 caps 10/02/21 10/08/21 lactulose 20 gram/30 mL oral 45 g (67.5 mL) PO TID #1,200 mL 10/02/21 10/08/21 solution morphine 30 mg tablet,extended 30 mg PO BID #30 tabs 10/02/21 10/08/21 release morphine 30 mg tablet,extended 30 mg PO BID #30 tabs 10/02/21 10/08/21 release (MS Contin) quetiapine 25 mg tablet 25 mg PO TID #30 tabs 10/02/21 10/08/21 spironolactone 50 mg tablet 50 mg PO DAILY #30 tabs 10/02/21 10/08/21 tamsulosin 0.4 mg capsule 0.8 mg PO DAILY #30 caps 10/02/21 10/08/21 thiamine mononitrate (vit B1) 100 100 mg PO DAILY #30 tabs 10/02/21 10/08/21 mg tablet (Vitamin B-1 (mononitrate)) trazodone 50 mg tablet 50 mg PO DAILY #30 tabs 10/02/21 10/08/21 Previous Rx's Medication Instructions Recorded atorvastatin 40 mg tablet 40 mg PO QPM #30 tabs 10/02/21 duloxetine 60 mg capsule,delayed 60 mg PO DAILY #30 caps 10/02/21 release furosemide 20 mg tablet 40 mg PO DAILY #60 tabs 10/02/21 gabapentin 300 mg capsule 900 mg PO TID #90 caps 10/02/21 lactulose 20 gram/30 mL oral 45 g (67.5 mL) PO TID #1,200 mL 10/02/21 solution morphine 30 mg tablet,extended 30 mg PO BID #30 tabs 10/02/21 release morphine 30 mg tablet,extended 30 mg PO BID #30 tabs 10/02/21 release (MS Contin) quetiapine 25 mg tablet 25 mg PO TID #30 tabs 10/02/21 spironolactone 50 mg tablet 50 mg PO DAILY #30 tabs 10/02/21 tamsulosin 0.4 mg capsule 0.8 mg PO DAILY #30 caps 10/02/21 thiamine mononitrate (vit B1) 100 100 mg PO DAILY #30 tabs 10/02/21 mg tablet (Vitamin B-1 (mononitrate)) trazodone 50 mg tablet 50 mg PO DAILY #30 tabs 10/02/21 Allergies Allergy/AdvReac Type Severity Reaction Status Date / Time venom-honey bee Allergy Severe signs of Unverified 10/08/21 07:23 stroke pregabalin [From Lyrica] Allergy Mild Unverified 10/08/21 07:23 varenicline tartrate AdvReac Unknown Nausea Unverified 10/08/21 07:23 [From Chantix] General Stated Complaint: GenMedical SCOT: 4 Review of Systems Narrative: Denies pain to me. States he is homeless. States he has been in and out of alf. Able to afford alcohol daily. States he has old spine injury. No respiratory symptoms. States his legs are improving. 7 systems were reviewed and otherwise negative [facility] All Active Problems Edema, peripheral (Acute) Homelessness (Acute) Venous stasis ulcer (Acute) Acute on chronic diastolic (congestive) heart failure (Acute) Thrombocytopenia (Acute) Chronic neck pain (Acute) Chronic back pain (Acute) Numbness (Acute) Polymicrobial bacterial infection (Acute) Constipation (Chronic) MRSA cellulitis (Acute) Chronic anemia (Acute) Pressure ulcers of skin of multiple topographic sites (Acute) Chronic cutaneous venous stasis ulcer (Chronic) Chronic venous stasis dermatitis of both lower extremities (Acute) Polysubstance abuse (Acute) GERD (gastroesophageal reflux disease) (Chronic) Alcoholic cirrhosis of liver (Chronic) Medical History Acute alcohol intoxication Alcohol dependence Anemia Arthritis Bilateral leg edema Chronic pain Cirrhosis of liver Diabetic peripheral neuropathy Encephalopathy, hepatic Hepatitis C Hyperlipidemia Knee pain, right TIA (transient ischemic attack) TIA (transient ischemic attack) Ulnar neuropathy Urinary retention Surgical History H/O cervical spine surgery Hx of total knee arthroplasty Social History Smoking/Tobacco Use Status: Current every day Tobacco Type: cigarettes and e-cigarettes Smoking risk assessment performed?: Yes Alcohol Intake: current Alcohol Intake frequency: 3 or more drinks per day Alcohol type: beer, wine and hard liquor Drug use: Occasionally Substance use type: marijuana Housing: apartment Number of Children: 3 What type of physical activity do you participate in: walking Do you feel safe at home: Yes Do you feel safe in your relationship?: Yes Exam Narrative Exam Narrative: GEN: awake, alert, oriented 3. Pleasant, interactive. HEAD: Normocephalic, atraumatic ENT: Mucous membranes moist, oropharynx unremarkable, External ear exam unremarkable EYES: PERRL, EOMI NECK: Full ROM, no URI, tenderness to the bilateral trapezius and paraspinous musculature, there is no midline tenderness, step-off or deformity appreciated. Patient turns head left and right in conversation without difficulty. No menigismus CHEST/RESP: Nontender, clear to auscultation bilateral, no wheeze/rhonchi/rales. Back is nontender. CARDIOVASCULAR: RRR, no murmur, rub manuel. 2+ Rad pulse bilateral ABDOMEN: Soft, nontender, no mass. +Bowel sounds EXT: Full ROM, no edema, there is chronic venous stasis changes. No open lesions or sores appreciated. Motor is 5 out of 5 in the upper and lower extremity. Sensation intact including saddle distribution. There are 2+ patellar reflex bilaterally, 2+ bicep reflex bilaterally. Neuro: Grossly normal neurologic exam, conversant, interactive. Psych: Speech fluent, thoughts congruent, affect normal Course Vital Signs Vital signs: Vital Signs Temperature 37 C 10/08/21 07:19 Pulse 90 10/08/21 07:19 Respiratory Rate 16 10/08/21 07:19 Blood Pressure 140/100 H 10/08/21 07:19 Pulse Oximetry 98 10/08/21 07:19 Temperature 37 C 10/08/21 07:19 Temperature Source Temporal Artery Scan 10/08/21 07:19 Pulse 90 10/08/21 07:19 Respiratory Rate 16 10/08/21 07:24 Respiratory Effort 10/08/21 07:24 Respiratory Depth Normal 10/08/21 07:24 Respiratory Pattern Normal 10/08/21 07:24 Blood Pressure 140/100 H 10/08/21 07:19 Blood Pressure Position Sitting 10/08/21 07:19 Pulse Oximetry 98 10/08/21 07:19 Oxygen Delivery Method Room Air 10/08/21 07:19 Oxygen Flow Rate 0 10/08/21 07:19 Pain Level 9 10/08/21 07:19 PAWSS Have you Been Recently Intoxicated or Drunk Within the Last 30 days?: Yes Have you Ever Experienced Previous Episodes of Alcohol Withdrawal?: Yes Have you ever Experienced Withdrawal Seizures?: No Have you ever Experienced Delirium Tremens(DT)s?: Yes Have you ever undergone Alcohol Rehabilitation Treatment (i.e, inpt ot outpatient treatment programs)?: Yes Have you ever Experienced Blackouts?: No Have you ever Combined Alcohol with other Downers within the last 90 days?: No Have you ever Combined Alcohol with any other Substance of Abuse during the last 90 days?: No Positive Blood Alcohol level on Presentation? [PCS.BAL]: No Evidence of Increased Autonomic Activity (i.e. HR>120, tremor, sweating, agitation, nausea)?: No Result: 4
== END 2021-10-08 07:50 ==
PROVIDERS: Emergency Provider Emergency Medicine; PCP Family Medicine
DX: R20.2 Paresthesia of skin (principal); Z53.29 Procedure and treatment not carried out because of patient's decision for other reasons; Z59.00 Homelessness unspecified
CPT/HCPCS: 99281

== ENCOUNTER 2021-10-08 14:00 | Emergency (ER) | payer MEDICAID, SELFPAY ==
--- NOTE | 2021-10-08 13:45 | RT.EKG_ITS ---
APPROVED REPORT Exam: Resting ECG Reason for Exam: chest pain Patient Location: E HR:99 bpm ECG Measurements Heart Rate 99 AXIS [place] 128 P 57 QRSd 89 QRS -5 QT 357 T 31 QTc 453 Conclusion Sinus rhythm...normal P axis
[2021-10-08 14:02] VITALS: BP 123/84; PULSE 101; RESP 16; TEMP 36.9; O2SAT 100
[2021-10-08 14:07] VITALS: RESP 20
--- NOTE | 2021-10-08 14:09 | ED.GENADUL_ITS ---
Discharge Plan Disposition Patient Disposition: AGAINST MEDICAL ADVICE Condition: Serious Discharge Details Chief Complaint: GenMedical Clinical Impression: Chest pain, CHF (congestive heart failure), Neck pain, Paresthesias Primary Care Provider: Sushil Figueroa ED Provider: [facility] Meds and New Rx's Prescriptions: No Action aspirin [Aspir-81] 81 MG tablet,delayed release (DR/EC) 81 mg PO DAILY atorvastatin [Lipitor] 40 MG tablet 40 mg PO QPM quetiapine 25 mg Tablet 25 mg PO TID Qty: 30 0RF morphine 30 mg Tablet Extended Release 30 mg PO BID Qty: 30 0RF atorvastatin 40 mg Tablet 40 mg PO QPM Qty: 30 1RF duloxetine 60 mg capsule,delayed release(DR/EC) 60 mg PO DAILY Qty: 30 1RF furosemide 20 mg Tablet 40 mg PO DAILY Qty: 60 1RF gabapentin 300 mg Capsule 900 mg PO TID Qty: 90 1RF lactulose 20 gram/30 mL Solution 45 g PO TID Qty: 1200 1RF spironolactone 50 mg Tablet 50 mg PO DAILY Qty: 30 1RF tamsulosin 0.4 mg Capsule 0.8 mg PO DAILY Qty: 30 1RF trazodone 50 mg Tablet 50 mg PO DAILY Qty: 30 1RF thiamine mononitrate (vit B1) [Vitamin B-1 (mononitrate)] 100 mg Tablet 100 mg PO DAILY Qty: 30 0RF morphine [MS Contin] 30 mg Tablet Extended Release 30 mg PO BID Qty: 30 0RF Medical Decision Making This is a 61-year-old gentleman with a significant past medical history, multiple recent ER visits, presenting for multiple complaints including a fall 4 days ago, neck pain which is acute on chronic, bilateral upper and lower extremity paresthesias, chest pain and shortness of breath. He appears neurologically intact. Pulse in triage was 101 but during my evaluation was 96. Plan is to give a single dose aspirin, initiate cardiac work-up including a D- dimer. Patient refuses to wear a c-collar and understands that this may lead to paralysis and/or . Initial laboratory values reveal a platelet count of 81 which is near his baseline. D-dimer of 2299, will pursue CTA of the chest to rule out PE. Potassium 3.1, will replenish with 40 p.o. initial troponin less than 50. BNP 1812. Likely requires diuresis but will await his PE study before giving diuresis. CT imaging of head and neck reveal no intracranial process. No change in appearance of the fracture involving the C1 and C2 vertebrae At approximately 1545 patient walked out of exam room 8 without any difficulties and stated he was leaving. He no longer wants to wait in the ER for laboratory results. It was made very clear to him that I was concerned regarding his overall presentation, needing further evaluation, delta troponin, CTA of the chest, etc. Patient understands the risk of leaving and continues to request leaving AMA. Patient appears clinically sober, is of sound mind, and based upon my clinical examination has the capacity to make their own decisions. We have offered treatment options and discussed the the risks and benefits of these options and refusing these options, including and/or disability specific to the patient's pathology. Pt is able to discuss and understands the risks and benefits and alternatives of treatment and refusing treatment. The patient still chooses to leave before evaluation and treatment can be completed AGAINST MEDICAL ADVICE. This documentation was generated using [employer] system, please disregard any oddities of phrase or misspellings. Medical Records Medical records reviewed: Yes I reviewed the patient's medical records. Imaging Data Radiologic Study: Attestation: I personally reviewed and interpreted this imaging study as follows: Imaging: CT Scan Radiologist's impression: Exam(s) CT HEAD CERVICAL SPINE WO EXAM: CT HEAD CERVICAL SPINE WO CLINICAL HISTORY: fall/ neck pain, paresthesias. TECHNIQUE: Imaging Protocol: Axial computed tomography images with coronal and sagittal reformatted images were created and reviewed COMPARISON: CT CT HEAD CERVICAL SPINE WO from 09/09/2021 FINDINGS: CT Head: Ventricles and Extra axial spaces: Normal in size and morphology for the patient's age. Hemorrhage: None. Cerebral parenchyma: No evidence of an acute territorial infarct. Midline shift: None. Brainstem/Cerebellum: Normal. Calvarium: Normal. Visualized Paranasal sinuses/Mastoids: Clear. Soft Tissues: Unremarkable. CT Cervical Spine: Bones: There has been no change in appearance of the fractures involving the right aspects of C1 and C2. No new fractures or subluxations are appreciated. Postsurgical changes are again seen in the cervical spine. Soft Tissues: Unremarkable. Lung Apices: Clear. IMPRESSION: 1. No acute intracranial process. 2. There has been no change in appearance of the fractures involving the C1 and C2 vertebra. 3. No new fracture or subluxation is seen in the cervical spine. 4. Results of this exam have been verbally communicated with provider. Lab Data Lab results reviewed: Yes I reviewed the patient's lab results. Labs: Laboratory Tests Range/Units 10/08/21 10/08/21 10/08/21 14:22 14:53 14:53 WBC (4.4-10.8) 10^3/uL RBC (4.36-5.78) 10^6/uL Hgb (13.5-17.5) g/dL Hct (40.0-50.0) % MCV (80-95) fL MCH (27.0-33.0) pg MCHC (32.0-36.0) % RDW (11.8-14.1) % Plt Count (130-400) 10^3/uL MPV (8.0-11.0) fL Immature Gran % Neutrophils % Lymphocytes % Monocytes % Eosinophils % Basophils % Nucleated RBC % (0.0-0.3) % Absolute Neutrophils (1.2-6.7) 10^3/uL Absolute Lymphocytes (1.2-3.4) 10^3/uL Absolute Monocytes (0.1-0.8) 10^3/uL Absolute Eosinophils (0.0-0.7) 10^3/uL Absolute Basophils (0.0-0.2) 10^3/uL PT (9.3-11.0) sec 10.8 INR (0.9-1.1) 1.1 APTT (21.0-27.5) sec 23.4 D-Dimer (<500) ng/mlFEU 2299 H Sodium (136-145) mmol/L 133 L Potassium (3.5-5.1) mmol/L 3.1 L Chloride (98-107) mmol/L 98 Carbon Dioxide (21.0-32.0) mmol/L 21.5 Anion Gap (3-11) mmol/L 13.5 H BUN (7-18) mg/dL 11 Creatinine (0.70-1.30) mg/dL 0.7 Estimated GFR/1.73 m2 (mL/min/1.73m2) >= 60.00 Glucose (74-106) mg/dL 86 Calcium (8.5-10.1) mg/dL 8.8 Magnesium (1.8-2.4) mg/dL 1.9 Total Bilirubin (0.2-1.0) mg/dL 0.8 AST (15-37) U/L 36 ALT (16-63) U/L 29 Alkaline Phosphatase (46-116) U/L 88 Troponin I (<or=60) ng/L < 50 NT-Pro-B Natriuret Pep Cancelled 1812 H Total Protein (6.4-8.2) g/dL 8.5 H Albumin (3.4-5.0) g/dL 3.4 COVID-19 Source Range/Units 10/08/21 10/08/21 14:53 15:05 WBC (4.4-10.8) 10^3/uL 7.27 RBC (4.36-5.78) 10^6/uL 5.01 Hgb (13.5-17.5) g/dL 13.1 L Hct (40.0-50.0) % 41.3 MCV (80-95) fL 82 MCH (27.0-33.0) pg 26.1 L MCHC (32.0-36.0) % 31.7 L RDW (11.8-14.1) % 19.6 H Plt Count (130-400) 10^3/uL 81 L MPV (8.0-11.0) fL 9.9 Immature Gran % 0.3 Neutrophils % 69.1 Lymphocytes % 20.5 Monocytes % 7.7 Eosinophils % 2.1 Basophils % 0.3 Nucleated RBC % (0.0-0.3) % 0.0 Absolute Neutrophils (1.2-6.7) 10^3/uL 5.03 Absolute Lymphocytes (1.2-3.4) 10^3/uL 1.49 Absolute Monocytes (0.1-0.8) 10^3/uL 0.56 Absolute Eosinophils (0.0-0.7) 10^3/uL 0.15 Absolute Basophils (0.0-0.2) 10^3/uL 0.02 PT (9.3-11.0) sec INR (0.9-1.1) APTT (21.0-27.5) sec D-Dimer (<500) ng/mlFEU Sodium (136-145) mmol/L Potassium (3.5-5.1) mmol/L Chloride (98-107) mmol/L Carbon Dioxide (21.0-32.0) mmol/L Anion Gap (3-11) mmol/L BUN (7-18) mg/dL Creatinine (0.70-1.30) mg/dL Estimated GFR/1.73 m2 (mL/min/1.73m2) Glucose (74-106) mg/dL Calcium (8.5-10.1) mg/dL Magnesium (1.8-2.4) mg/dL Total Bilirubin (0.2-1.0) mg/dL AST (15-37) U/L ALT (16-63) U/L Alkaline Phosphatase (46-116) U/L Troponin I (<or=60) ng/L NT-Pro-B Natriuret Pep Total Protein (6.4-8.2) g/dL Albumin (3.4-5.0) g/dL COVID-19 Source Nasal/Nares ECG Data Attestation: I personally reviewed and interpreted this ECG (s) as follows: Interpretation: Please see official report by Dr. Farrell. Sinus rhythm, ventricular rate 99, no STEMI. HPI General Mode of arrival: EMS . Date/Time Provider Initiated Documentation: 10/08/21 14:08 . Limitations to Documentation: no limitations . Information obtained by: patient and EMS . HPI Narrative: This is a 61-year-old gentleman, past medical history of peripheral edema, homelessness, CHF, thrombocytopenia, chronic neck pain, anemia, polysubstance abuse, ambulatory dysfunction, depression, GERD, alcoholic cirrhosis of the liver, hepatitis C, TIA, known to be noncompliant, presents to the ER reporting paresthesias in both of his upper and lower extremities status post a fall 4 days ago striking his head, acute on chronic neck pain, also reports a chest pressure and shortness of breath that began earlier today. Unfortunately he is a rather vague and poor historian. He tells me that he had an ER evaluation in [place] after his initial fall and was cleared and released. He also tells me he was seen here earlier in the ER but decided to leave, as wanted to be admitted to a rehab facility, and subsequently [facility] police brought him into town to the [facility], he then used [facility] to go to [facility], and most recently I was told by care management and economic services are in the process of working for a place for him to go this evening and potentially long-term. Patient denies recent illness, headache, visual changes, productive cough, abdominal pain, nausea, vomiting, focal weakness Related Data Home Medications Medication Instructions Recorded Confirmed atorvastatin 40 mg tablet (Lipitor) 40 mg PO QPM 08/19/16 10/08/21 aspirin 81 mg tablet,delayed 81 mg PO DAILY 03/15/17 10/08/21 release (Aspir-) atorvastatin 40 mg tablet 40 mg PO QPM #30 tabs 10/02/21 10/08/21 duloxetine 60 mg capsule,delayed 60 mg PO DAILY #30 caps 10/02/21 10/08/21 release furosemide 20 mg tablet 40 mg PO DAILY #60 tabs 10/02/21 10/08/21 gabapentin 300 mg capsule 900 mg PO TID #90 caps 10/02/21 10/08/21 lactulose 20 gram/30 mL oral 45 g (67.5 mL) PO TID #1,200 mL 10/02/21 10/08/21 solution morphine 30 mg tablet,extended 30 mg PO BID #30 tabs 10/02/21 10/08/21 release morphine 30 mg tablet,extended 30 mg PO BID #30 tabs 10/02/21 10/08/21 release (MS Contin) quetiapine 25 mg tablet 25 mg PO TID #30 tabs 10/02/21 10/08/21 spironolactone 50 mg tablet 50 mg PO DAILY #30 tabs 10/02/21 10/08/21 tamsulosin 0.4 mg capsule 0.8 mg PO DAILY #30 caps 10/02/21 10/08/21 thiamine mononitrate (vit B1) 100 100 mg PO DAILY #30 tabs 10/02/21 10/08/21 mg tablet (Vitamin B-1 (mononitrate)) trazodone 50 mg tablet 50 mg PO DAILY #30 tabs 10/02/21 10/08/21 Previous Rx's Medication Instructions Recorded atorvastatin 40 mg tablet 40 mg PO QPM #30 tabs 10/02/21 duloxetine 60 mg capsule,delayed 60 mg PO DAILY #30 caps 10/02/21 release furosemide 20 mg tablet 40 mg PO DAILY #60 tabs 10/02/21 gabapentin 300 mg capsule 900 mg PO TID #90 caps 10/02/21 lactulose 20 gram/30 mL oral 45 g (67.5 mL) PO TID #1,200 mL 10/02/21 solution morphine 30 mg tablet,extended 30 mg PO BID #30 tabs 10/02/21 release morphine 30 mg tablet,extended 30 mg PO BID #30 tabs 10/02/21 release (MS Contin) quetiapine 25 mg tablet 25 mg PO TID #30 tabs 10/02/21 spironolactone 50 mg tablet 50 mg PO DAILY #30 tabs 10/02/21 tamsulosin 0.4 mg capsule 0.8 mg PO DAILY #30 caps 10/02/21 thiamine mononitrate (vit B1) 100 100 mg PO DAILY #30 tabs 10/02/21 mg tablet (Vitamin B-1 (mononitrate)) trazodone 50 mg tablet 50 mg PO DAILY #30 tabs 10/02/21 Allergies Allergy/AdvReac Type Severity Reaction Status Date / Time venom-honey bee Allergy Severe signs of Unverified 10/08/21 14:07 stroke pregabalin [From Lyrica] Allergy Mild Unverified 10/08/21 14:07 varenicline tartrate AdvReac Unknown Nausea Unverified 10/08/21 14:07 [From Chantix] General Stated Complaint: GenMedical SCOT: 4 Review of Systems Constitutional Constitutional: Denies fatigue, Denies fever(s), Denies headache(s) and Reports weakness (Generalized) Eyes Eyes: Denies change in vision ENT Ears, Nose, Mouth, and Throat: Denies headache(s) and Reports neck pain Cardiovascular Cardiovascular: Reports chest pain and Reports dyspnea Respiratory Respiratory: Denies cough and Reports dyspnea Gastrointestinal Gastrointestinal: Denies abdominal pain, Denies nausea and Denies vomiting Genitourinary Genitourinary: Denies dysuria Musculoskeletal Musculoskeletal: Reports neck pain, Denies numbness and Reports tingling Integumentary/Breasts Skin/Breast: Denies rash Neurologic Neurologic: Denies headache(s), Denies numbness, Reports tingling and Reports weakness (Generalized) Psychiatric Psychiatric: Reports depression, Denies homicidal ideation and Denies suicidal ideation Endocrine Endocrine: Denies fatigue Hematologic/Lymphatic Hematologic/Lymphatic: Denies easy bleeding and Denies easy bruising PFSH All Active Problems (Updated 10/08/21 @ 15:54 by RANDY Mclean) Edema, peripheral (Acute) Homelessness (Acute) Chest pain (Acute) CHF (congestive heart failure) (Chronic) Neck pain (Acute) Paresthesias (Acute) Venous stasis ulcer (Acute) Acute on chronic diastolic (congestive) heart failure (Acute) Thrombocytopenia (Acute) Chronic neck pain (Acute) Chronic back pain (Acute) Numbness (Acute) Polymicrobial bacterial infection (Acute) Constipation (Chronic) MRSA cellulitis (Acute) Chronic anemia (Acute) Pressure ulcers of skin of multiple topographic sites (Acute) Chronic cutaneous venous stasis ulcer (Chronic) Chronic venous stasis dermatitis of both lower extremities (Acute) Polysubstance abuse (Acute) GERD (gastroesophageal reflux disease) (Chronic) Alcoholic cirrhosis of liver (Chronic) Medical History Acute alcohol intoxication Alcohol dependence Anemia Arthritis Bilateral leg edema Chronic pain Cirrhosis of liver Diabetic peripheral neuropathy Encephalopathy, hepatic Hepatitis C Hyperlipidemia Knee pain, right TIA (transient ischemic attack) TIA (transient ischemic attack) Ulnar neuropathy Urinary retention Surgical History H/O cervical spine surgery Hx of total knee arthroplasty Social History Smoking/Tobacco Use Status: Current every day Tobacco Type: cigarettes and e- cigarettes Smoking risk assessment performed?: Yes Alcohol Intake: current Alcohol Intake frequency: 3 or more drinks per day Alcohol type: beer, wine and hard liquor Drug use: Occasionally Substance use type: marijuana Housing: apartment Number of Children: 3 What type of physical activity do you participate in: walking Do you feel safe at home: Yes Do you feel safe in your relationship?: Yes Exam Const General: cooperative, no acute distress and disheveled Orientation: alert, awake and oriented x3 HENMT Head: normocephalic Head images: 1. Abrasion Mouth: moist mucous membranes Eyes General: appearance normal, both eyes and all related structures Conjunctivae: conjunctivae normal Neck Neck: normal visual inspection, full ROM, trachea midline, supple and tender (Diffuse posterior) Resp Effort & Inspection: normal respiratory effort and able to speak in complete sentences Auscultation: diminished lung sounds bilaterally in the lower lung blair Cardio Rate: regular rate Rhythm: regular rhythm GI Palpation: soft, not firm, no guarding, no pulsatile masses and nontender Back/Spine/Pelvis Back: No back tenderness Skin General skin exam: no rashes or lesions noted Neuro General: patient alert, patient awake, patient oriented x3, moves all extremities and no focal motor deficits Cognition: normal cognition Speech: speech normal Motor: muscle tone normal throughout and strength 5/5 throughout Sensory Exam: no sensory deficits noted Extrem General: full ROM, capillary refill normal and pedal edema bilaterally pitting and 1+ Psych Appearance: grossly normal Mental Status: mental status grossly normal Course Vital Signs Vital signs: Vital Signs Temperature 36.9 C 10/08/21 14:02 Pulse 101 H 10/08/21 14:02 Respiratory Rate 16 10/08/21 14:02 Blood Pressure 123/84 10/08/21 14:02 Pulse Oximetry 100 10/08/21 14:02 Temperature 36.9 C 10/08/21 14:02 Pulse 101 H 10/08/21 14:02 Respiratory Rate 16 10/08/21 14:02 Respiratory Effort 10/08/21 14:06 Blood Pressure 123/84 10/08/21 14:02 Blood Pressure Position Sitting 10/08/21 14:02 Pulse Oximetry 100 10/08/21 14:02 Oxygen Delivery Method Room Air 10/08/21 14:02 Oxygen Flow Rate 0 10/08/21 14:02 Pain Level 9 10/08/21 14:02
--- NOTE | 2021-10-08 14:15 | DI.RAD_ITS ---
Exam(s) XR CHEST 2V PA LATERAL EXAM: XR CHEST 2V PA LATERAL CLINICAL HISTORY: chest pain TECHNIQUE: 2D digital imaging was performed of the chest. Two images were obtained. PA and lateral views were obtained. COMPARISON: CR,XR XR CHEST 2V PA LATERAL from 09/12/2021 FINDINGS: MEDIASTINUM: Normal. HEART: Normal. PULMONARY VASCULATURE: Normal. LUNGS: Clear. PLEURAL SPACE: No pleural effusion or pneumothorax. BONE:Within normal limits for the patient's age. Postsurgical changes are seen in the cervical spine . OTHER FINDINGS:Normal. IMPRESSION: No acute pulmonary findings. DATA REPOSITORY: RADIATION DOSE DELIVERED:
--- NOTE | 2021-10-08 14:15 | DI.CT_ITS ---
Exam(s) CT HEAD CERVICAL SPINE WO EXAM: CT HEAD CERVICAL SPINE WO CLINICAL HISTORY: fall/ neck pain, paresthesias. TECHNIQUE: Imaging Protocol: Axial computed tomography images with coronal and sagittal reformatted images were created and reviewed COMPARISON: CT CT HEAD CERVICAL SPINE WO from 09/09/2021 FINDINGS: CT Head: Ventricles and Extra axial spaces: Normal in size and morphology for the patient's age. Hemorrhage: None. Cerebral parenchyma: No evidence of an acute territorial infarct. Midline shift: None. Brainstem/Cerebellum: Normal. Calvarium: Normal. Visualized Paranasal sinuses/Mastoids: Clear. Soft Tissues: Unremarkable. CT Cervical Spine: Bones: There has been no change in appearance of the fractures involving the right aspects of C1 and C2. No new fractures or subluxations are appreciated. Postsurgical changes are again seen in the ce rvical spine. Soft Tissues: Unremarkable. Lung Apices: Clear. IMPRESSION: 1. No acute intracranial process. 2. There has been no change in appearance of the fractures involving the C1 and C2 vertebra. 3. No new fracture or subluxation is seen in the cervical spine. 4. Results of this exam have been verbally communicated with provider. RADIATION DOSE DELIVERED: 1,504.84mGy.cm Total DLP DATA REPOSITORY: All CT scans at this facility are submitted to the National Radiology Data Registry (NRDR) Dose Index Registry (DIR) with the [employer] (A[employer]). RADIATION OPTIMIZATION: All CT scans at this facility use at least one of these dose optimization te chniques: automated exposure control; mA and/or kV adjustment per patient size (includes targeted exa ms where dose is matched to clinical indication); or iterative reconstruction.
[2021-10-08 14:30] VITALS: PULSE 88; RESP 20
[2021-10-08 14:33] VITALS: BP 143/91; PULSE 91; PULSE 94; RESP 23
[2021-10-08 14:40] VITALS: PULSE 86; RESP 21; O2SAT 98
[2021-10-08 14:50] VITALS: PULSE 78; RESP 21
[2021-10-08 15:04] LABS: Abs Immature Grans 0.02 10^3/uL (0.0-0.06); Absolute Basophil Count 0.02 10^3/uL (0.0-0.2); Absolute Eosinophil Count 0.15 10^3/uL (0.0-0.7); Absolute Lymphocyte Count 1.49 10^3/uL (1.2-3.4); Absolute Monocyte Count 0.56 10^3/uL (0.1-0.8); Absolute Neutrophil Count 5.03 10^3/uL (1.2-6.7); Basophils % 0.3; Eosinophils % 2.1; HCT 41.3 % (40.0-50.0); HGB 13.1 g/dL (13.5-17.5); Immature Grans % 0.3; Lymphocytes % 20.5; MCH 26.1 pg (27.0-33.0); MCHC 31.7 % (32.0-36.0); MCV 82 fL (80-95); MPV 9.9 fL (8.0-11.0); Monocytes % 7.7; Neutrophils % 69.1; RBC 5.01 10^6/uL (4.36-5.78); RDW 19.6 % (11.8-14.1); RDW-SD 58.2 fL; WBC 7.27 10^3/uL (4.4-10.8)
[2021-10-08 15:10] LABS: Source Nasal/Nares
[2021-10-08 15:17] LABS: INR 1.1 (0.9-1.1); PTT Activated 23.4 sec (21.0-27.5); Prothrombin Time 10.8 sec (9.3-11.0)
[2021-10-08 15:18] LABS: Platelet Count 81 10^3/uL (130-400)
[2021-10-08 15:24] LABS: ALT 29 U/L (16-63); AST 36 U/L (15-37); Albumin 3.4 g/dL (3.4-5.0); Alkaline Phosphatase 88 U/L (46-116); Anion Gap 13.5 mmol/L (3-11); BUN 11 mg/dL (7-18); Bilirubin, Total 0.8 mg/dL (0.2-1.0); CO2 21.5 mmol/L (21.0-32.0); CREATININE 0.7 mg/dL (0.70-1.30); Calcium 8.8 mg/dL (8.5-10.1); Chloride 98 mmol/L (98-107); Glucose 86 mg/dL (74-106); Magnesium 1.9 mg/dL (1.8-2.4); NT-proBNP 1812 pg/mL (<300); Potassium 3.1 mmol/L (3.5-5.1); Sodium 133 mmol/L (136-145); Total Protein 8.5 g/dL (6.4-8.2); Troponin I < 50 ng/L (<or=60)
[2021-10-08] MEDS: Potassium Chloride 20 MEQ TABCR 40 MEQ PO (15:33)
[2021-10-08 15:41] LABS: D-Dimer 2299 ng/mlFEU (<500)
[2021-10-08 16:08] LABS: COVID-19 PCR Negative (Negative)
== END 2021-10-08 15:46 | disposition left against medical advice (07) ==
PROVIDERS: Emergency Provider Physician Assistant; PCP Family Medicine
DX: R07.9 Chest pain, unspecified (principal); M54.2 Cervicalgia; R20.2 Paresthesia of skin; I50.9 Heart failure, unspecified; E87.6 Hypokalemia; Z20.822 Contact with and (suspected) exposure to COVID-19; W18.39XA Other fall on same level, initial encounter
CPT/HCPCS: 36415; 80053; 87635; 93005; 99284; 70450; 71046; 72125; 83735; 83880; 84484; 85025; 85379; 85610; 85730; 93010

== ENCOUNTER 2021-10-09 09:43 | Emergency (ER) | payer MEDICAID, SELFPAY ==
[2021-10-09 10:06] VITALS: BP 120/78; PULSE 100; RESP 14; TEMP 36.7; O2SAT 100
--- NOTE | 2021-10-09 11:28 | ED.GENADUL_ITS ---
Discharge Plan Disposition Patient Disposition: LEFT WITHOUT BEING SEEN Discharge Details Chief Complaint: GenMedical Primary Care Provider: Sushil Figueroa ED Provider: Breezy Alanis Home Meds and New Rx's Prescriptions: No Action aspirin [Aspir-81] 81 MG tablet,delayed release (DR/EC) 81 mg PO DAILY atorvastatin [Lipitor] 40 MG tablet 40 mg PO QPM quetiapine 25 mg Tablet 25 mg PO TID Qty: 30 0RF morphine 30 mg Tablet Extended Release 30 mg PO BID Qty: 30 0RF atorvastatin 40 mg Tablet 40 mg PO QPM Qty: 30 1RF duloxetine 60 mg capsule,delayed release(DR/EC) 60 mg PO DAILY Qty: 30 1RF furosemide 20 mg Tablet 40 mg PO DAILY Qty: 60 1RF gabapentin 300 mg Capsule 900 mg PO TID Qty: 90 1RF lactulose 20 gram/30 mL Solution 45 g PO TID Qty: 1200 1RF spironolactone 50 mg Tablet 50 mg PO DAILY Qty: 30 1RF tamsulosin 0.4 mg Capsule 0.8 mg PO DAILY Qty: 30 1RF trazodone 50 mg Tablet 50 mg PO DAILY Qty: 30 1RF thiamine mononitrate (vit B1) [Vitamin B-1 (mononitrate)] 100 mg Tablet 100 mg PO DAILY Qty: 30 0RF morphine [MS Contin] 30 mg Tablet Extended Release 30 mg PO BID Qty: 30 0RF Medical Decision Making Patient left the emergency department prior to being seen. Had spoke to the EMS who stated that patient was complaining of paralysis but easily walked and got onto the stretcher prior to transport to the emergency department. Patient has had multiple visits to the emergency department recently mostly secondary to homelessness where patient then becomes aggravated and combative and believes before being seen. Today patient did the same where he left the building and then came back in to be rechecked out. Prior to me seeing patient patient did get up and walk, was ambulatory with [facility] police, and was acting per his baseline which included being upset at staff. Patient was triaged but then decided to leave with [facility] prior to my evaluation of patient. For full medical exam was not able to be completed I do feel that it is reassuring that patient was seen by myself ambulating and also observed on video camera moving all extremities. HPI General Date/Time Provider Initiated Documentation: 10/09/21 10:10 . Related Data Home Medications Medication Instructions Recorded Confirmed atorvastatin 40 mg tablet (Lipitor) 40 mg PO QPM 08/19/16 10/08/21 aspirin 81 mg tablet,delayed 81 mg PO DAILY 03/15/17 10/08/21 release (Aspir-) atorvastatin 40 mg tablet 40 mg PO QPM #30 tabs 10/02/21 10/08/21 duloxetine 60 mg capsule,delayed 60 mg PO DAILY #30 caps 10/02/21 10/08/21 release furosemide 20 mg tablet 40 mg PO DAILY #60 tabs 10/02/21 10/08/21 gabapentin 300 mg capsule 900 mg PO TID #90 caps 10/02/21 10/08/21 lactulose 20 gram/30 mL oral 45 g (67.5 mL) PO TID #1,200 mL 10/02/21 10/08/21 solution morphine 30 mg tablet,extended 30 mg PO BID #30 tabs 10/02/21 10/08/21 release morphine 30 mg tablet,extended 30 mg PO BID #30 tabs 10/02/21 10/08/21 release (MS Contin) quetiapine 25 mg tablet 25 mg PO TID #30 tabs 10/02/21 10/08/21 spironolactone 50 mg tablet 50 mg PO DAILY #30 tabs 10/02/21 10/08/21 tamsulosin 0.4 mg capsule 0.8 mg PO DAILY #30 caps 10/02/21 10/08/21 thiamine mononitrate (vit B1) 100 100 mg PO DAILY #30 tabs 10/02/21 10/08/21 mg tablet (Vitamin B-1 (mononitrate)) trazodone 50 mg tablet 50 mg PO DAILY #30 tabs 10/02/21 10/08/21 Previous Rx's Medication Instructions Recorded atorvastatin 40 mg tablet 40 mg PO QPM #30 tabs 10/02/21 duloxetine 60 mg capsule,delayed 60 mg PO DAILY #30 caps 10/02/21 release furosemide 20 mg tablet 40 mg PO DAILY #60 tabs 10/02/21 gabapentin 300 mg capsule 900 mg PO TID #90 caps 10/02/21 lactulose 20 gram/30 mL oral 45 g (67.5 mL) PO TID #1,200 mL 06/16/22 solution morphine 30 mg tablet,extended 30 mg PO BID #30 tabs 10/02/21 release morphine 30 mg tablet,extended 30 mg PO BID #30 tabs 10/02/21 release (MS Contin) quetiapine 25 mg tablet 25 mg PO TID #30 tabs 10/02/21 spironolactone 50 mg tablet 50 mg PO DAILY #30 tabs 10/02/21 tamsulosin 0.4 mg capsule 0.8 mg PO DAILY #30 caps 10/02/21 thiamine mononitrate (vit B1) 100 100 mg PO DAILY #30 tabs 10/02/21 mg tablet (Vitamin B-1 (mononitrate)) trazodone 50 mg tablet 50 mg PO DAILY #30 tabs 10/02/21 Allergies Allergy/AdvReac Type Severity Reaction Status Date / Time venom-honey bee Allergy Severe signs of Unverified 10/09/21 10:08 stroke pregabalin [From Lyrica] Allergy Mild Unverified 10/09/21 10:08 varenicline tartrate AdvReac Unknown Nausea Unverified 10/09/21 10:08 [From Chantix] General Stated Complaint: GenMedical SCOT: 3 PFSH All Active Problems (Updated 10/09/21 @ 00:04 by JUSTICE MARIN) Edema, peripheral (Acute) Homelessness (Acute) Chest pain (Acute) CHF (congestive heart failure) (Chronic) Neck pain (Acute) Paresthesias (Acute) Venous stasis ulcer (Acute) Acute on chronic diastolic (congestive) heart failure (Acute) Thrombocytopenia (Acute) Chronic neck pain (Acute) Chronic back pain (Acute) Numbness (Acute) Polymicrobial bacterial infection (Acute) Constipation (Chronic) MRSA cellulitis (Acute) Chronic anemia (Acute) Pressure ulcers of skin of multiple topographic sites (Acute) Chronic venous stasis dermatitis of both lower extremities (Acute) Polysubstance abuse (Acute) GERD (gastroesophageal reflux disease) (Chronic) Alcoholic cirrhosis of liver (Chronic) Medical History Acute alcohol intoxication Alcohol dependence Anemia Arthritis Bilateral leg edema Chronic pain Cirrhosis of liver Diabetic peripheral neuropathy Encephalopathy, hepatic Hepatitis C Hyperlipidemia Knee pain, right TIA (transient ischemic attack) TIA (transient ischemic attack) Ulnar neuropathy Urinary retention Surgical History H/O cervical spine surgery Hx of total knee arthroplasty Social History Smoking/Tobacco Use Status: Current every day Tobacco Type: cigarettes and e- cigarettes Smoking risk assessment performed?: Yes Alcohol Intake: current Alcohol Intake frequency: 3 or more drinks per day Alcohol type: beer, wine and hard liquor Drug use: Occasionally Substance use type: marijuana Housing: apartment Number of Children: 3 What type of physical activity do you participate in: walking Do you feel safe at home: Yes Do you feel safe in your relationship?: Yes Course Vital Signs Vital signs: Vital Signs Temperature 36.7 C 10/09/21 10:06 Pulse 100 H 10/09/21 10:06 Respiratory Rate 14 10/09/21 10:06 Blood Pressure 120/78 10/09/21 10:06 Pulse Oximetry 100 10/09/21 10:06 Temperature 36.7 C 10/09/21 10:06 Temperature Source Temporal Artery Scan 10/09/21 10:06 Pulse 100 H 10/09/21 10:06 Respiratory Rate 14 10/09/21 10:06 Blood Pressure 120/78 10/09/21 10:06 Blood Pressure Position Sitting 10/09/21 10:06 Pulse Oximetry 100 10/09/21 10:06 Oxygen Delivery Method Room Air 10/09/21 10:06 Oxygen Flow Rate 0 10/09/21 10:06 Pain Level 9 10/09/21 10:06 PAWSS Have you Been Recently Intoxicated or Drunk Within the Last 30 days?: No Have you Ever Experienced Previous Episodes of Alcohol Withdrawal?: Yes Have you ever Experienced Withdrawal Seizures?: No Have you ever Experienced Delirium Tremens(DT)s?: No Have you ever undergone Alcohol Rehabilitation Treatment (i.e, inpt ot outpatient treatment programs)?: Yes Have you ever Experienced Blackouts?: No Have you ever Combined Alcohol with other Downers within the last 90 days?: No Have you ever Combined Alcohol with any other Substance of Abuse during the last 90 days?: No Positive Blood Alcohol level on Presentation? [PCS.BAL]: No Evidence of Increased Autonomic Activity (i.e. HR>120, tremor, sweating, agitation, nausea)?: No Result: 2
== END 2021-10-09 10:46 | disposition left before discharge ==
PROVIDERS: Emergency Provider Nurse Practitioner Family; PCP Family Medicine
DX: Z53.21 Procedure and treatment not carried out due to patient leaving prior to being seen by health care provider (principal)

== ENCOUNTER 2021-10-09 13:25 | Emergency (ER) | payer MEDICAID, SELFPAY ==
--- NOTE | 2021-10-09 14:23 | ED.GENADUL_ITS ---
Discharge Plan Disposition Patient Disposition: Eloped Discharge Details Chief Complaint: GenMedical Clinical Impression: Homelessness, Numbness Primary Care Provider: Sushil Figueroa ED Provider: Breezy Alanis Home Meds and New Rx's Prescriptions: No Action aspirin [Aspir-81] 81 MG tablet,delayed release (DR/EC) 81 mg PO DAILY atorvastatin [Lipitor] 40 MG tablet 40 mg PO QPM quetiapine 25 mg Tablet 25 mg PO TID Qty: 30 0RF morphine 30 mg Tablet Extended Release 30 mg PO BID Qty: 30 0RF atorvastatin 40 mg Tablet 40 mg PO QPM Qty: 30 1RF duloxetine 60 mg capsule,delayed release(DR/EC) 60 mg PO DAILY Qty: 30 1RF furosemide 20 mg Tablet 40 mg PO DAILY Qty: 60 1RF gabapentin 300 mg Capsule 900 mg PO TID Qty: 90 1RF lactulose 20 gram/30 mL Solution 45 g PO TID Qty: 1200 1RF spironolactone 50 mg Tablet 50 mg PO DAILY Qty: 30 1RF tamsulosin 0.4 mg Capsule 0.8 mg PO DAILY Qty: 30 1RF trazodone 50 mg Tablet 50 mg PO DAILY Qty: 30 1RF thiamine mononitrate (vit B1) [Vitamin B-1 (mononitrate)] 100 mg Tablet 100 mg PO DAILY Qty: 30 0RF morphine [MS Contin] 30 mg Tablet Extended Release 30 mg PO BID Qty: 30 0RF Discharge Data Discharge Date/Time-TO BE ENTERED AT DEPARTURE: 10/09/21 14:55 Medical Decision Making Patient presenting again to the emergency department for the third time today. He has left and eloped multiple times due to having to wait. Earlier today during one of the episodes where he eloped he had walked to the [facility] [employer] car without any issue. Then he found someone to bring him back to the emergency department and could not walk again. Patient stating that he cannot feel his arms and legs and that this is been going on for 4 days. Patient reports that nothing has changed in the past 4 days. Patient has been seen multiple times in the emergency department and evaluated over this timeframe. During standard HPI and review of systems patient became upset and stated that he did not have a medical emergency and that he wanted to leave. Was able to convince patient to allow for physical exam and patient had full sensation and movement of all extremities with no obvious abnormality even though here ported that his extremities were all numb when I informed patient that I would review previous work-ups and determine what further testing if any were needed he stated that he was just going to leave and did not want to wait any more. Again informed patient that we would need to have more time to take care of him and even before I was able to review any of his previous records patient had eloped again. Patient again was stating that he had no medical emergency and just wanted to leave. This documentation was generated using [employer] system, please disregard any oddities of phrase or misspellings. HPI General Mode of arrival: wheelchair . Date/Time Provider Initiated Documentation: 10/09/21 14:23 . Limitations to Documentation: no limitations . Information obtained by: patient, RN notes reviewed and old records reviewed . History of Present Illness 61 year old M presents to the emergency department with the chief complaint of Arm and leg numbness, described as similar to prior episodes, and is localized to the upper extremity and lower extremity. Patient reports no radiation. Patient started experiencing this day(s) (4) and it has been constant. No relieving factors improve symptom(s), No exacerbating factors reported . Patient notes no other symptoms.. Patient did receive the following treatments prior to arrival, none Related Data Home Medications Medication Instructions Recorded Confirmed atorvastatin 40 mg tablet (Lipitor) 40 mg PO QPM 08/19/16 10/11/21 aspirin 81 mg tablet,delayed 81 mg PO DAILY 03/15/17 10/11/21 release (Aspir-) atorvastatin 40 mg tablet 40 mg PO QPM #30 tabs 10/02/21 10/11/21 duloxetine 60 mg capsule,delayed 60 mg PO DAILY #30 caps 10/02/21 10/11/21 release furosemide 20 mg tablet 40 mg PO DAILY #60 tabs 10/02/21 10/11/21 gabapentin 300 mg capsule 900 mg PO TID #90 caps 10/02/21 10/11/21 lactulose 20 gram/30 mL oral 45 g (67.5 mL) PO TID #1,200 mL 10/02/21 10/11/21 solution morphine 30 mg tablet,extended 30 mg PO BID #30 tabs 10/02/21 10/11/21 release morphine 30 mg tablet,extended 30 mg PO BID #30 tabs 10/02/21 10/11/21 release (MS Contin) quetiapine 25 mg tablet 25 mg PO TID #30 tabs 10/02/21 10/11/21 spironolactone 50 mg tablet 50 mg PO DAILY #30 tabs 10/02/21 10/11/21 tamsulosin 0.4 mg capsule 0.8 mg PO DAILY #30 caps 10/02/21 10/11/21 thiamine mononitrate (vit B1) 100 100 mg PO DAILY #30 tabs 10/02/21 10/11/21 mg tablet (Vitamin B-1 (mononitrate)) trazodone 50 mg tablet 50 mg PO DAILY #30 tabs 10/02/21 10/11/21 Previous Rx's Medication Instructions Recorded atorvastatin 40 mg tablet 40 mg PO QPM #30 tabs 10/02/21 duloxetine 60 mg capsule,delayed 60 mg PO DAILY #30 caps 10/02/21 release furosemide 20 mg tablet 40 mg PO DAILY #60 tabs 10/02/21 gabapentin 300 mg capsule 900 mg PO TID #90 caps 10/02/21 lactulose 20 gram/30 mL oral 45 g (67.5 mL) PO TID #1,200 mL 10/02/21 solution morphine 30 mg tablet,extended 30 mg PO BID #30 tabs 10/02/21 release morphine 30 mg tablet,extended 30 mg PO BID #30 tabs 10/02/21 release (MS Contin) quetiapine 25 mg tablet 25 mg PO TID #30 tabs 10/02/21 spironolactone 50 mg tablet 50 mg PO DAILY #30 tabs 10/02/21 tamsulosin 0.4 mg capsule 0.8 mg PO DAILY #30 caps 10/02/21 thiamine mononitrate (vit B1) 100 100 mg PO DAILY #30 tabs 10/02/21 mg tablet (Vitamin B-1 (mononitrate)) trazodone 50 mg tablet 50 mg PO DAILY #30 tabs 10/02/21 Allergies Allergy/AdvReac Type Severity Reaction Status Date / Time venom-honey bee Allergy Severe signs of Unverified 10/11/21 17:19 stroke pregabalin [From Lyrica] Allergy Mild Unverified 10/11/21 17:19 varenicline tartrate AdvReac Unknown Nausea Unverified 10/11/21 17:19 [From Chantix] General Stated Complaint: GenMedical SCOT: 3 Review of Systems Constitutional Constitutional: Denies chills, Denies fever(s) and Denies headache(s) ENT Ears, Nose, Mouth, and Throat: Denies dizziness and Denies headache(s) Cardiovascular Cardiovascular: Denies chest pain and Denies dyspnea Respiratory Respiratory: Denies cough and Denies dyspnea Gastrointestinal Gastrointestinal: Denies nausea and Denies vomiting Musculoskeletal Musculoskeletal: Reports numbness and Denies tingling Integumentary/Breasts Skin/Breast: Denies rash Neurologic Neurologic: Reports as per HPI, Denies dizziness, Denies headache(s), Reports numbness, Denies radicular pain, Reports sensory deficit and Denies tingling PFSH All Active Problems (Updated 10/12/21 @ 12:00 by Breezy Alanis NP) Edema, peripheral (Acute) Homelessness (Acute) Chest pain (Acute) CHF (congestive heart failure) (Chronic) Neck pain (Acute) Paresthesias (Acute) Abrasion of scalp (Acute) Fall (Acute) Paresthesia of bilateral legs (Acute) Venous stasis ulcer (Acute) Acute on chronic diastolic (congestive) heart failure (Acute) Thrombocytopenia (Acute) Numbness (Acute) Polymicrobial bacterial infection (Acute) Constipation (Chronic) MRSA cellulitis (Acute) Chronic anemia (Acute) Pressure ulcers of skin of multiple topographic sites (Acute) Chronic venous stasis dermatitis of both lower extremities (Acute) Polysubstance abuse (Acute) GERD (gastroesophageal reflux disease) (Chronic) Alcoholic cirrhosis of liver (Chronic) Medical History Acute alcohol intoxication Alcohol dependence Anemia Arthritis Bilateral leg edema Chronic pain Cirrhosis of liver Diabetic peripheral neuropathy Encephalopathy, hepatic Hepatitis C Hyperlipidemia Knee pain, right TIA (transient ischemic attack) TIA (transient ischemic attack) Ulnar neuropathy Urinary retention Surgical History H/O cervical spine surgery Hx of total knee arthroplasty Social History Smoking/Tobacco Use Status: Current every day Tobacco Type: cigarettes and e- cigarettes Smoking risk assessment performed?: Yes Alcohol Intake: current Alcohol Intake frequency: 3 or more drinks per day Alcohol type: beer, wine and hard liquor Drug use: Occasionally Substance use type: marijuana Details: whiskey daily Housing: apartment Number of Children: 3 What type of physical activity do you participate in: walking Do you feel safe at home: Yes Do you feel safe in your relationship?: Yes Exam Const General: no acute distress and not ill appearing Orientation: alert, awake and oriented x3 Resp Effort & Inspection: normal respiratory effort, able to speak in complete sentences and no respiratory distress Auscultation: clear to auscultation bilaterally Cardio Rate: regular rate Rhythm: regular rhythm Heart Sounds: S1 normal and S2 normal Skin General skin exam: no rashes or lesions noted Neuro General: patient alert, patient awake, patient oriented x3, moves all extremities and no focal motor deficits Sensory Exam: no sensory deficits noted
[2021-10-09 14:53] VITALS: BP 95/68; PULSE 109; RESP 24; TEMP 36.9; O2SAT 94
--- NOTE | 2021-10-09 14:55 | NUR.NOTE ---
patient here earlier and LWBS. Came back and after speaking with Provider Xander Alanis, who spoke with patient and did strength assessment. advised jackson that he was going to look at previous records to see what had or had not been done to see what we could do for him today. Provider Annabelle left the room and patient demanded to be put outside the door entrance. patient advised if he left the building and decided to come back the exam process would be started all over again from the beginning. Patient stated he would not be coming back. security called [facility] due to Jackson loitering outside the building and not here as a medical patient and was therefore trespassing at this point.
== END 2021-10-09 14:55 ==
PROVIDERS: Emergency Provider Nurse Practitioner Family; PCP Family Medicine
DX: Z53.21 Procedure and treatment not carried out due to patient leaving prior to being seen by health care provider (principal)

== ENCOUNTER 2021-10-10 21:14 | Emergency (ER) | payer MEDICAID, SELFPAY ==
--- NOTE | 2021-10-10 21:00 | DI.CT_ITS ---
Exam(s) CT HEAD WO EXAM: CT HEAD WO CLINICAL HISTORY: fall left frontal scalp injury. TECHNIQUE: Imaging Protocol: Axial computed tomography images with coronal and sagittal reformatted images were created and reviewed COMPARISON: CT CT HEAD CERVICAL SPINE WO from 12/24/[address] HEAD CERVICAL SPINE WO from 09/09/[address] HEAD CERVICAL SPINE WO from 10/08/2021 FINDINGS: There are no skull fractures nor fluid in the visualized paranasal sinuses. Fusion hardware in the cervical spine noted. Area of abnormal hypodensity in the right frontal lobe white matter again noted, unchanged, most prob ably ischemic sequelae in the territory of the right anterior cerebral artery. This was also present on 09/09/2021 peer There is no evidence of intracranial hemorrhage, mass effect, or shift of midline structures. There are no extra-axial fluid collections. The ventricles are not enlarged or shifted and there is no blo od within the ventricular system nor within the basal cisterns. IMPRESSION: Area of abnormal hypodensity in the right frontal lobe again noted, most probably post ischemic linder e, as evident on recent scans of 5 08/06/2021 and 10/08/2021. Also unchanged from CT scan of 2019. If clinically indicated follow-up MRI can be performed for added sensitivity and specificity. RADIATION DOSE DELIVERED: 937.74mGy.cm Total DLP DATA REPOSITORY: All CT scans at this facility are submitted to the National Radiology Data Registry (NRDR) Dose Index Registry (DIR) with the [employer] ([employer]). RADIATION OPTIMIZATION: All CT scans at this facility use at least one of these dose optimization te chniques: automated exposure control; mA and/or kV adjustment per patient size (includes targeted exa ms where dose is matched to clinical indication); or iterative reconstruction.
[2021-10-10 21:09] VITALS: PULSE 71; RESP 19; O2SAT 97
[2021-10-10 21:13] VITALS: RESP 18
[2021-10-10 21:17] VITALS: BP 144/78
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
--- NOTE | 2021-10-10 22:18 | DI.VRAD_ITS ---
PROCEDURE INFORMATION: Exam: CT Head Without Contrast Exam date and time: 10/10/2021 9:51 PM Age: 61 years old Clinical indication: Injury or trauma; Blunt trauma (contusions or hematomas) and concussion/head injury; Consciousness not specified; Injury date: 10/10/21; Injury details: Fall scalp injury TECHNIQUE: Imaging protocol: Computed tomography of the head without contrast. Radiation optimization: All CT scans at this facility use at least one of these dose optimization techniques: automated exposure control; mA and/or kV adjustment per patient size (includes targeted exams where dose is matched to clinical indication); or iterative reconstruction. COMPARISON: CT HEAD CERVICAL SPINE WO 10/08/2021 3:13 PM FINDINGS: Brain: There are mild periventricular and subcortical lucencies consistent with chronic microvascular ischemic changes. The garcia-white differentiation is maintained. No hemorrhage. No edema. Cerebral ventricles: No ventriculomegaly. Paranasal sinuses: Visualized sinuses are unremarkable. No fluid levels. Mastoid air cells: Visualized mastoid air cells are well aerated. Bones/joints: Unremarkable. No acute fracture. Soft tissues: Unremarkable. IMPRESSION: No acute intracranial abnormality. Chronic microvascular ischemic changes. Dictated and Authenticated by: Aneesh Alvares MD. Ordering:JOHN Delgado MD
== END 2021-10-10 22:49 | disposition home or self-care (01) ==
PROVIDERS: Emergency Provider Emergency Medicine; PCP Family Medicine
DX: S00.01XA Abrasion of scalp, initial encounter (principal); E11.42 Type 2 diabetes mellitus with diabetic polyneuropathy; V28.9XXA Unspecified motorcycle rider injured in noncollision transport accident in traffic accident, initial encounter
CPT/HCPCS: 99285; 70450; 99282

== ENCOUNTER 2021-10-11 12:41 | Emergency (ER) | payer MEDICAID, SELFPAY ==
[2021-10-11 12:43] VITALS: BP 117/76; PULSE 117; RESP 16; TEMP 37.2; O2SAT 97
--- NOTE | 2021-10-11 13:04 | ED.GENADUL_ITS ---
Discharge Plan Disposition Patient Disposition: Eloped Condition: Stable Discharge Details Chief Complaint: GenMedical Clinical Impression: Neck pain, Paresthesias, Homelessness Primary Care Provider: Sushil Figueroa ED Provider: Flex Gandhi Home Meds and New Rx's Prescriptions: No Action aspirin [Aspir-81] 81 MG tablet,delayed release (DR/EC) 81 mg PO DAILY atorvastatin [Lipitor] 40 MG tablet 40 mg PO QPM quetiapine 25 mg Tablet 25 mg PO TID Qty: 30 0RF morphine 30 mg Tablet Extended Release 30 mg PO BID Qty: 30 0RF atorvastatin 40 mg Tablet 40 mg PO QPM Qty: 30 1RF duloxetine 60 mg capsule,delayed release(DR/EC) 60 mg PO DAILY Qty: 30 1RF furosemide 20 mg Tablet 40 mg PO DAILY Qty: 60 1RF gabapentin 300 mg Capsule 900 mg PO TID Qty: 90 1RF lactulose 20 gram/30 mL Solution 45 g PO TID Qty: 1200 1RF spironolactone 50 mg Tablet 50 mg PO DAILY Qty: 30 1RF tamsulosin 0.4 mg Capsule 0.8 mg PO DAILY Qty: 30 1RF trazodone 50 mg Tablet 50 mg PO DAILY Qty: 30 1RF thiamine mononitrate (vit B1) [Vitamin B-1 (mononitrate)] 100 mg Tablet 100 mg PO DAILY Qty: 30 0RF morphine [MS Contin] 30 mg Tablet Extended Release 30 mg PO BID Qty: 30 0RF Medical Decision Making This is a 61-year-old gentleman, well-known to our ER, multiple recent similar visits, presenting via EMS after being released from police custody for evaluation of ongoing neck pain and extremity paresthesias. Patient denies recent illness or trauma since his recent ER visit. Patient is argumentative, uncooperative, verbally aggressive towards staff, not willing to partake in an HPI or examination. He states you cannot help me, I do not even know why I came. I am just going to leave. Limited and challenging HPI and examination given his demeanor. We discussed further work-up including blood work and/or imaging of his head and neck but he declines. You have already done that and cannot find anything wrong. You aren't fucking helping me. Patient is unwilling, not willing to partake in his HPI, examination, or further evaluation in the ER. He is declining any further evaluation, laboratories, imaging, etc. He is able to ambulate steadily using his walker. He moves all extremities, no obvious focal weakness. He is requesting to leave the ER and requesting that we find him a ride using RCT Patient does not want to wait in the ER, eloped outside. This documentation was generated using [employer]acker dictation system, please disregard any oddities of phrase or misspellings. Medical Records Medical records reviewed: Yes I reviewed the patient's medical records. HPI General Mode of arrival: EMS . Date/Time Provider Initiated Documentation: 10/11/21 12:45 . Limitations to Documentation: no limitations . Information obtained by: patient and EMS . HPI Narrative: This is a 61-year-old gentleman, past medical history that includes CHF, neck fracture approximately 1 month ago, alcohol abuse, anemia, chronic pain, diabetes, neuropathy, TIA, who was actually seen in the ER yesterday, multiple times recently, and subsequently ended up in police custody, was released this morning and now presenting to the ER for chronic neck pain and paresthesias. Patient reports that this has been going on for at least 1 month. Patient is agitated, not cooperative with HPI and examination, swearing at staff. He repeats multiple times there is nothing you can do to help me, I should just go now. He denies recent illness or trauma specifically since his last ER visit and work-up. Related Data Home Medications Medication Instructions Recorded Confirmed atorvastatin 40 mg tablet (Lipitor) 40 mg PO QPM 08/19/16 10/11/21 aspirin 81 mg tablet,delayed 81 mg PO DAILY 03/15/17 10/11/21 release (Aspir-) atorvastatin 40 mg tablet 40 mg PO QPM #30 tabs 10/02/21 10/11/21 duloxetine 60 mg capsule,delayed 60 mg PO DAILY #30 caps 10/02/21 10/11/21 release furosemide 20 mg tablet 40 mg PO DAILY #60 tabs 10/02/21 10/11/21 gabapentin 300 mg capsule 900 mg PO TID #90 caps 10/02/21 10/11/21 lactulose 20 gram/30 mL oral 45 g (67.5 mL) PO TID #1,200 mL 10/02/21 10/11/21 solution morphine 30 mg tablet,extended 30 mg PO BID #30 tabs 10/02/21 10/11/21 release morphine 30 mg tablet,extended 30 mg PO BID #30 tabs 10/02/21 10/11/21 release (MS Contin) quetiapine 25 mg tablet 25 mg PO TID #30 tabs 10/02/21 10/11/21 spironolactone 50 mg tablet 50 mg PO DAILY #30 tabs 10/02/21 10/11/21 tamsulosin 0.4 mg capsule 0.8 mg PO DAILY #30 caps 10/02/21 10/11/21 thiamine mononitrate (vit B1) 100 100 mg PO DAILY #30 tabs 10/02/21 10/11/21 mg tablet (Vitamin B-1 (mononitrate)) trazodone 50 mg tablet 50 mg PO DAILY #30 tabs 10/02/21 10/11/21 Previous Rx's Medication Instructions Recorded atorvastatin 40 mg tablet 40 mg PO QPM #30 tabs 10/02/21 duloxetine 60 mg capsule,delayed 60 mg PO DAILY #30 caps 10/02/21 release furosemide 20 mg tablet 40 mg PO DAILY #60 tabs 10/02/21 gabapentin 300 mg capsule 900 mg PO TID #90 caps 10/02/21 lactulose 20 gram/30 mL oral 45 g (67.5 mL) PO TID #1,200 mL 10/02/21 solution morphine 30 mg tablet,extended 30 mg PO BID #30 tabs 10/02/21 release morphine 30 mg tablet,extended 30 mg PO BID #30 tabs 10/02/21 release (MS Contin) quetiapine 25 mg tablet 25 mg PO TID #30 tabs 10/02/21 spironolactone 50 mg tablet 50 mg PO DAILY #30 tabs 10/02/21 tamsulosin 0.4 mg capsule 0.8 mg PO DAILY #30 caps 10/02/21 thiamine mononitrate (vit B1) 100 100 mg PO DAILY #30 tabs 10/02/21 mg tablet (Vitamin B-1 (mononitrate)) trazodone 50 mg tablet 50 mg PO DAILY #30 tabs 10/02/21 Allergies Allergy/AdvReac Type Severity Reaction Status Date / Time venom-honey bee Allergy Severe signs of Unverified 10/11/21 12:48 stroke pregabalin [From Lyrica] Allergy Mild Unverified 10/11/21 12:48 varenicline tartrate AdvReac Unknown Nausea Unverified 10/11/21 12:48 [From Chantix] General Stated Complaint: GenMedical SCOT: 4 Review of Systems Narrative: Limited secondary to patient's unwillingness Constitutional Constitutional: Denies fever(s) Cardiovascular Cardiovascular: Denies chest pain Musculoskeletal Musculoskeletal: Denies muscle weakness and Reports tingling Neurologic Neurologic: Reports tingling PFSH All Active Problems (Updated 10/11/21 @ 14:13 by RANDY Mclean) Edema, peripheral (Acute) Homelessness (Acute) Chest pain (Acute) CHF (congestive heart failure) (Chronic) Neck pain (Acute) Paresthesias (Acute) Abrasion of scalp (Acute) Fall (Acute) Venous stasis ulcer (Acute) Acute on chronic diastolic (congestive) heart failure (Acute) Thrombocytopenia (Acute) Numbness (Acute) Polymicrobial bacterial infection (Acute) Constipation (Chronic) MRSA cellulitis (Acute) Chronic anemia (Acute) Pressure ulcers of skin of multiple topographic sites (Acute) Chronic venous stasis dermatitis of both lower extremities (Acute) Polysubstance abuse (Acute) GERD (gastroesophageal reflux disease) (Chronic) Alcoholic cirrhosis of liver (Chronic) Medical History Acute alcohol intoxication Alcohol dependence Anemia Arthritis Bilateral leg edema Chronic pain Cirrhosis of liver Diabetic peripheral neuropathy Encephalopathy, hepatic Hepatitis C Hyperlipidemia Knee pain, right TIA (transient ischemic attack) TIA (transient ischemic attack) Ulnar neuropathy Urinary retention Surgical History H/O cervical spine surgery Hx of total knee arthroplasty Social History Smoking/Tobacco Use Status: Current every day Tobacco Type: cigarettes and e- cigarettes Smoking risk assessment performed?: Yes Alcohol Intake: current Alcohol Intake frequency: 3 or more drinks per day Alcohol type: beer, wine and hard liquor Drug use: Occasionally Substance use type: marijuana Housing: apartment Number of Children: 3 What type of physical activity do you participate in: walking Do you feel safe at home: Yes Do you feel safe in your relationship?: Yes Exam Narrative Exam Narrative: Limited as patient is uncooperative and aggressive towards staff Const General: comfortable, no acute distress and other (Argumentative) Orientation: alert, awake and oriented x3 HENMT Head: normal to inspection, normocephalic and atraumatic Face and sinus: normal facial exam Mouth: moist mucous membranes Eyes General: appearance normal, both eyes and all related structures Conjunctivae: conjunctivae normal Neck Neck: normal visual inspection, full ROM, trachea midline and supple Resp Effort & Inspection: normal respiratory effort and able to speak in complete sentences Other: Yelling, speaking in full sentences Skin General skin exam: no rashes or lesions noted Neuro General: patient alert, patient awake, moves all extremities and no focal motor deficits Cognition: normal cognition Speech: speech normal Gait: normal gait (With walker) and gait assisted Method: walker Extrem Other: Minimal 1+ edema bilateral lower extremities Psych Appearance: grossly normal Mental Status: mental status grossly normal Course Vital Signs Vital signs: Vital Signs Temperature 37.2 C 10/11/21 12:43 Pulse 117 H 10/11/21 12:43 Respiratory Rate 16 10/11/21 12:43 Blood Pressure 117/76 10/11/21 12:43 Pulse Oximetry 97 10/11/21 12:43 Temperature 37.2 C 10/11/21 12:43 Temperature Source Temporal Artery Scan 10/11/21 12:43 Pulse 117 H 10/11/21 12:43 Respiratory Rate 16 10/11/21 12:43 Respiratory Effort 10/11/21 12:47 Blood Pressure 117/76 10/11/21 12:43 Blood Pressure Position Sitting 10/11/21 12:43 Pulse Oximetry 97 10/11/21 12:43 Oxygen Delivery Method Room Air 10/11/21 12:43 Oxygen Flow Rate 0 10/11/21 12:43 Pain Level 10 10/11/21 12:43 PAWSS Have you Been Recently Intoxicated or Drunk Within the Last 30 days?: Unable to Obtain Have you Ever Experienced Previous Episodes of Alcohol Withdrawal?: Unable to Obtain Have you ever Experienced Withdrawal Seizures?: Unable to Obtain Have you ever Experienced Delirium Tremens(DT)s?: Unable to Obtain Have you ever undergone Alcohol Rehabilitation Treatment (i.e, inpt ot outpatient treatment programs)?: Unable to Obtain Have you ever Experienced Blackouts?: Unable to Obtain Have you ever Combined Alcohol with other Downers within the last 90 days?: Unable to Obtain Have you ever Combined Alcohol with any other Substance of Abuse during the last 90 days?: Unable to Obtain Positive Blood Alcohol level on Presentation? [PCS.BAL]: Unable to Obtain Evidence of Increased Autonomic Activity (i.e. HR>120, tremor, sweating, agitation, nausea)?: Unable to Obtain
== END 2021-10-11 13:02 ==
PROVIDERS: Emergency Provider Physician Assistant; PCP Family Medicine
DX: M54.2 Cervicalgia (principal); R20.2 Paresthesia of skin; I50.9 Heart failure, unspecified; E11.42 Type 2 diabetes mellitus with diabetic polyneuropathy; F17.210 Nicotine dependence, cigarettes, uncomplicated; F17.290 Nicotine dependence, other tobacco product, uncomplicated; Z86.73 Personal history of transient ischemic attack (TIA), and cerebral infarction without residual deficits; Z79.82 Long term (current) use of aspirin; Z59.00 Homelessness unspecified
CPT/HCPCS: 99283; 99281; 99282

== ENCOUNTER 2021-10-11 17:07 | Emergency (ER) | payer MEDICAID, SELFPAY ==
[2021-10-11 17:16] VITALS: BP 116/75; PULSE 115; RESP 16; TEMP 37.6; O2SAT 95
--- NOTE | 2021-10-11 17:40 | ED.GENADUL_ITS ---
Discharge Plan Disposition Patient Disposition: HOME Condition: Stable Discharge Details Clinical Impression: Paresthesia of bilateral legs Primary Care Provider: Sushil Figueroa ED Provider: Michael Montoya Home Meds and New Rx's Prescriptions: Continued aspirin [Aspir-81] 81 MG tablet,delayed release (DR/EC) 81 mg PO DAILY atorvastatin [Lipitor] 40 MG tablet 40 mg PO QPM quetiapine 25 mg Tablet 25 mg PO TID Qty: 30 0RF morphine 30 mg Tablet Extended Release 30 mg PO BID Qty: 30 0RF atorvastatin 40 mg Tablet 40 mg PO QPM Qty: 30 1RF duloxetine 60 mg capsule,delayed release(DR/EC) 60 mg PO DAILY Qty: 30 1RF furosemide 20 mg Tablet 40 mg PO DAILY Qty: 60 1RF gabapentin 300 mg Capsule 900 mg PO TID Qty: 90 1RF lactulose 20 gram/30 mL Solution 45 g PO TID Qty: 1200 1RF spironolactone 50 mg Tablet 50 mg PO DAILY Qty: 30 1RF tamsulosin 0.4 mg Capsule 0.8 mg PO DAILY Qty: 30 1RF trazodone 50 mg Tablet 50 mg PO DAILY Qty: 30 1RF thiamine mononitrate (vit B1) [Vitamin B-1 (mononitrate)] 100 mg Tablet 100 mg PO DAILY Qty: 30 0RF morphine [MS Contin] 30 mg Tablet Extended Release 30 mg PO BID Qty: 30 0RF Discharge Instructions Additional Instructions: Please take ibuprofen over the counter. Take 400mg by mouth every 6 hours as n eeded for pain. Please contact your primary care physician to arrange follow-up. Please follow-up with your back surgeon. Return to the ER immediately for any worsening or new concerning symptoms. Referrals: Sushil Figueroa [Primary Care Provider] - Medical Decision Making 61-year-old male, history of neck fracture and now chronic paresthesias bilateral lower extremities, noncompliant with treatment plan, frequent ED visits including earlier today, here with law enforcement requesting opioid analgesic for chronic pain in his legs. A medical screening exam was performed. Patient is stable with no acute medical conditions identified. He was instructed to follow-up with his spinal specialist as well as his PCP. I will give him ibuprofen and Tylenol as he is not had any today. Usual customary discharge instructions were reviewed with the patient. HPI General Mode of arrival: ambulatory . Date/Time Provider Initiated Documentation: 10/11/21 17:31 . Limitations to Documentation: no limitations . Information obtained by: patient and police . HPI Narrative: 61-year-old male with multiple medical problems including history of bilateral lower extremity paresthesias and weakness, frequent ED visits, here with chief complaint of tingling in his legs. Patient notes bilateral leg tingling and intermittent numbness. This has been ongoing for months. Patient has history of neck fracture. He has been noncompliant with treatment plan. He has associated pain in his legs bilaterally. Patient states he is unable to ambulate. Of note, patient requested evaluation here in the emergency department while being arrested. Related Data Home Medications Medication Instructions Recorded Confirmed atorvastatin 40 mg tablet (Lipitor) 40 mg PO QPM 08/19/16 10/11/21 aspirin 81 mg tablet,delayed 81 mg PO DAILY 03/15/17 10/11/21 release (Aspir-) atorvastatin 40 mg tablet 40 mg PO QPM #30 tabs 10/02/21 10/11/21 duloxetine 60 mg capsule,delayed 60 mg PO DAILY #30 caps 10/02/21 10/11/21 release furosemide 20 mg tablet 40 mg PO DAILY #60 tabs 10/02/21 10/11/21 gabapentin 300 mg capsule 900 mg PO TID #90 caps 10/02/21 10/11/21 lactulose 20 gram/30 mL oral 45 g (67.5 mL) PO TID #1,200 mL 10/02/21 10/11/21 solution morphine 30 mg tablet,extended 30 mg PO BID #30 tabs 10/02/21 10/11/21 release morphine 30 mg tablet,extended 30 mg PO BID #30 tabs 10/02/21 10/11/21 release (MS Contin) quetiapine 25 mg tablet 25 mg PO TID #30 tabs 10/02/21 10/11/21 spironolactone 50 mg tablet 50 mg PO DAILY #30 tabs 10/02/21 10/11/21 tamsulosin 0.4 mg capsule 0.8 mg PO DAILY #30 caps 10/02/21 10/11/21 thiamine mononitrate (vit B1) 100 100 mg PO DAILY #30 tabs 10/02/21 10/11/21 mg tablet (Vitamin B-1 (mononitrate)) trazodone 50 mg tablet 50 mg PO DAILY #30 tabs 10/02/21 10/11/21 Previous Rx's Medication Instructions Recorded atorvastatin 40 mg tablet 40 mg PO QPM #30 tabs 10/02/21 duloxetine 60 mg capsule,delayed 60 mg PO DAILY #30 caps 10/02/21 release furosemide 20 mg tablet 40 mg PO DAILY #60 tabs 10/02/21 gabapentin 300 mg capsule 900 mg PO TID #90 caps 10/02/21 lactulose 20 gram/30 mL oral 45 g (67.5 mL) PO TID #1,200 mL 10/02/21 solution morphine 30 mg tablet,extended 30 mg PO BID #30 tabs 10/02/21 release morphine 30 mg tablet,extended 30 mg PO BID #30 tabs 10/02/21 release (MS Contin) quetiapine 25 mg tablet 25 mg PO TID #30 tabs 10/02/21 spironolactone 50 mg tablet 50 mg PO DAILY #30 tabs 10/02/21 tamsulosin 0.4 mg capsule 0.8 mg PO DAILY #30 caps 10/02/21 thiamine mononitrate (vit B1) 100 100 mg PO DAILY #30 tabs 10/02/21 mg tablet (Vitamin B-1 (mononitrate)) trazodone 50 mg tablet 50 mg PO DAILY #30 tabs 10/02/21 Allergies Allergy/AdvReac Type Severity Reaction Status Date / Time venom-honey bee Allergy Severe signs of Unverified 10/11/21 17:19 stroke pregabalin [From Lyrica] Allergy Mild Unverified 10/11/21 17:19 varenicline tartrate AdvReac Unknown Nausea Unverified 10/11/21 17:19 [From Chantix] General Stated Complaint: GenMedical SCOT: 4 Review of Systems All systems reviewed & are unremarkable except as noted in HPI and below Constitutional Constitutional: Denies fever(s) Neurologic Neurologic: Reports as per HPI PFSH All Active Problems Edema, peripheral (Acute) Homelessness (Acute) Chest pain (Acute) CHF (congestive heart failure) (Chronic) Neck pain (Acute) Paresthesias (Acute) Abrasion of scalp (Acute) Fall (Acute) Paresthesia of bilateral legs (Acute) Venous stasis ulcer (Acute) Acute on chronic diastolic (congestive) heart failure (Acute) Thrombocytopenia (Acute) Numbness (Acute) Polymicrobial bacterial infection (Acute) Constipation (Chronic) MRSA cellulitis (Acute) Chronic anemia (Acute) Pressure ulcers of skin of multiple topographic sites (Acute) Chronic venous stasis dermatitis of both lower extremities (Acute) Polysubstance abuse (Acute) GERD (gastroesophageal reflux disease) (Chronic) Alcoholic cirrhosis of liver (Chronic) Medical History Acute alcohol intoxication Alcohol dependence Anemia Arthritis Bilateral leg edema Chronic pain Cirrhosis of liver Diabetic peripheral neuropathy Encephalopathy, hepatic Hepatitis C Hyperlipidemia Knee pain, right TIA (transient ischemic attack) TIA (transient ischemic attack) Ulnar neuropathy Urinary retention Surgical History H/O cervical spine surgery Hx of total knee arthroplasty Social History Smoking/Tobacco Use Status: Current every day Tobacco Type: cigarettes and e- cigarettes Smoking risk assessment performed?: Yes Alcohol Intake: current Alcohol Intake frequency: 3 or more drinks per day Alcohol type: beer, wine and hard liquor Drug use: Occasionally Substance use type: marijuana Details: whiskey daily Housing: apartment Number of Children: 3 What type of physical activity do you participate in: walking Do you feel safe at home: Yes Do you feel safe in your relationship?: Yes Exam Const General: no acute distress HENMT Head: normocephalic and atraumatic Eyes Conjunctivae: normal conjunctivae Sclera: normal sclerae Neck Neck: trachea midline Other: Able to rotate head but does have limited range of motion, scar, well-healed posterior neck Resp Auscultation: clear to auscultation bilaterally, no rales, no rhonchi and no wheezes Cardio Rate: regular rate and not tachycardic Rhythm: regular rhythm GI Palpation: soft, not firm, no guarding, no masses, not rigid and nontender Skin Rashes: other (Chronic appearing, healing ulcers bilateral upper extremities) Other: No cellulitis lower extremities bilaterally Neuro General: patient alert, patient awake, patient oriented x3 and tone normal Speech: speech normal Gait: other (Patient was observed walking outside from the waiting room) Motor: strength 5/5 throughout Sensory Exam: lower extremity (Patient notes subjective diminished sensation b/l LEs (chronic)) Other: Bilateral lower extremity sensation intact to painful stimuli, no saddle anesthesia Extrem General: no edema Psych Appearance: grossly normal Mental Status: mental status grossly normal Course Vital Signs Vital signs: Vital Signs Temperature 37.6 C 10/11/21 17:16 Pulse 115 H 10/11/21 17:16 Respiratory Rate 16 10/11/21 17:16 Blood Pressure 116/75 10/11/21 17:16 Pulse Oximetry 95 10/11/21 17:16 Temperature 37.6 C 10/11/21 17:16 Temperature Source Oral 10/11/21 17:16 Pulse 115 H 10/11/21 17:16 Respiratory Rate 16 10/11/21 17:16 Respiratory Effort 10/11/21 17:16 Blood Pressure 116/75 10/11/21 17:16 Blood Pressure Position Sitting 10/11/21 17:16 Pulse Oximetry 95 10/11/21 17:16 Oxygen Delivery Method Room Air 10/11/21 17:16 Oxygen Flow Rate 0 10/11/21 17:16 Pain Level 10 10/11/21 17:16
== END 2021-10-11 17:45 | disposition home or self-care (01) ==
PROVIDERS: Emergency Provider Student in an Organized Health Care Education/Training Program; PCP Family Medicine
DX: R20.2 Paresthesia of skin (principal); E11.42 Type 2 diabetes mellitus with diabetic polyneuropathy; F17.210 Nicotine dependence, cigarettes, uncomplicated; F17.290 Nicotine dependence, other tobacco product, uncomplicated; Z91.19 Patient's noncompliance with other medical treatment and regimen
CPT/HCPCS: 99282

== ENCOUNTER 2022-03-21 05:10 | Emergency (ER) | payer MEDICAID, SELFPAY ==
[2022-03-21 05:13] VITALS: BP 125/79; PULSE 89; RESP 18; TEMP 37; O2SAT 98
--- NOTE | 2022-03-21 05:27 | ED.GENADUL_ITS ---
Discharge Plan Disposition Patient Disposition: Home Condition: Stable Discharge Details Clinical Impression: Chronic pain Primary Care Provider: Sushil Figueroa ED Provider: Bill Joseph Home Meds and New Rx's Prescriptions: Continued aspirin [Aspir-81] 81 MG tablet,delayed release (DR/EC) 81 mg PO DAILY atorvastatin [Lipitor] 40 MG tablet 40 mg PO QPM quetiapine 25 mg Tablet 25 mg PO TID Qty: 30 0RF morphine 30 mg Tablet Extended Release 30 mg PO BID Qty: 30 0RF atorvastatin 40 mg Tablet 40 mg PO QPM Qty: 30 1RF duloxetine 60 mg capsule,delayed release(DR/EC) 60 mg PO DAILY Qty: 30 1RF furosemide 20 mg Tablet 40 mg PO DAILY Qty: 60 1RF gabapentin 300 mg Capsule 900 mg PO TID Qty: 90 1RF lactulose 20 gram/30 mL Solution 45 g PO TID Qty: 1200 1RF spironolactone 50 mg Tablet 50 mg PO DAILY Qty: 30 1RF tamsulosin 0.4 mg Capsule 0.8 mg PO DAILY Qty: 30 1RF trazodone 50 mg Tablet 50 mg PO DAILY Qty: 30 1RF thiamine mononitrate (vit B1) [Vitamin B-1 (mononitrate)] 100 mg Tablet 100 mg PO DAILY Qty: 30 0RF morphine [MS Contin] 30 mg Tablet Extended Release 30 mg PO BID Qty: 30 0RF Discharge Instructions Instructions: Chronic Pain (ED) Additional Instructions: follow up with your primary care provider. We are unable to provide prescription medication for chronic pain in the emergency department Discharge Data Discharge Date/Time-TO BE ENTERED AT DEPARTURE: 03/21/22 06:00 Medical Decision Making 61 yo male with hx of chronic pain, substance abuse, gerd, who comes in with chief complaint of body pains he has had chronically. HE states he was recently release from group home and doesn't feel he was receiving adequate pain management there so he came here tonight for pain medication. He denies any fevers, chills, chest pain, abdomen pain, new weakness. He does have chronic neuropathy in his legs and uses a walker to ambulate and was able to do so to get to the ambulance tonight. He denies any recent falls or trauma. HE arrives stable, caox4 speaking clearly. No focal spot that he has pain states it's mostly in his joints. He has no palpable or visible deformities of the spine, no erythema of the skin on his back or extremities, intact peripheral pulses. He has no saddle anesthesia, denies any issues with urination, and he declines to have a rectal exam. He has no abdominal tenderness. Suspect that his symptoms are due to his chronic pain syndrome he has. I did offer to provide a dose of nonnarcotic analgesia and reassess. He then became agitated and started swearing consistently and became threatening towards staff. I discussed that in the emergency department it is not the best setting for treating chronic pain, and he still did not want non narcotic pain medicine and was swearing at me consistently. I offered to perform imaging, treat his pain with other medicine besides opiates then observe him but he declines to have this done and doesn't want any testing at this time. He was advised to f/u with his pcp samuel and if new symptoms develop or he wants to have testing done he can return to the emergency department at any time. Differential Diagnosis Differential Diagnosis: chronic pain, neuropathy, arthritis Sign Out No HPI General Mode of arrival: EMS . Date/Time Provider Initiated Documentation: 03/21/22 05:19 . Limitations to Documentation: no limitations . Information obtained by: patient . History of Present Illness 61 year old M presents to the emergency department with the chief complaint of body pains, d escribed as severe, Patient started experiencing this year(s) (8) and it has been constant. No relieving factors improve symptom(s), No exacerbating factors reported . Patient notes no other symptoms.. Patient did receive the following treatments prior to arrival, none Related Data Home Medications Medication Instructions Recorded Confirmed atorvastatin 40 mg tablet (Lipitor) 40 mg PO QPM 08/19/16 10/11/21 aspirin 81 mg tablet,delayed 81 mg PO DAILY 03/15/17 10/11/21 release (Aspir-) atorvastatin 40 mg tablet 40 mg PO QPM #30 tabs 10/02/21 10/11/21 duloxetine 60 mg capsule,delayed 60 mg PO DAILY #30 caps 10/02/21 10/11/21 release furosemide 20 mg tablet 40 mg PO DAILY #60 tabs 10/02/21 10/11/21 gabapentin 300 mg capsule 900 mg PO TID #90 caps 10/02/21 10/11/21 lactulose 20 gram/30 mL oral 45 g (67.5 mL) PO TID #1,200 mL 10/02/21 10/11/21 solution morphine 30 mg tablet,extended 30 mg PO BID #30 tabs 10/02/21 10/11/21 release morphine 30 mg tablet,extended 30 mg PO BID #30 tabs 10/02/21 10/11/21 release (MS Contin) quetiapine 25 mg tablet 25 mg PO TID #30 tabs 10/02/21 10/11/21 spironolactone 50 mg tablet 50 mg PO DAILY #30 tabs 10/02/21 10/11/21 tamsulosin 0.4 mg capsule 0.8 mg PO DAILY #30 caps 10/02/21 10/11/21 thiamine mononitrate (vit B1) 100 100 mg PO DAILY #30 tabs 10/02/21 10/11/21 mg tablet (Vitamin B-1 (mononitrate)) trazodone 50 mg tablet 50 mg PO DAILY #30 tabs 10/02/21 10/11/21 Previous Rx's Medication Instructions Recorded atorvastatin 40 mg tablet 40 mg PO QPM #30 tabs 10/02/21 duloxetine 60 mg capsule,delayed 60 mg PO DAILY #30 caps 10/02/21 release furosemide 20 mg tablet 40 mg PO DAILY #60 tabs 10/02/21 gabapentin 300 mg capsule 900 mg PO TID #90 caps 10/02/21 lactulose 20 gram/30 mL oral 45 g (67.5 mL) PO TID #1,200 mL 10/02/21 solution morphine 30 mg tablet,extended 30 mg PO BID #30 tabs 10/02/21 release morphine 30 mg tablet,extended 30 mg PO BID #30 tabs 10/02/21 release (MS Contin) quetiapine 25 mg tablet 25 mg PO TID #30 tabs 10/02/21 spironolactone 50 mg tablet 50 mg PO DAILY #30 tabs 10/02/21 tamsulosin 0.4 mg capsule 0.8 mg PO DAILY #30 caps 10/02/21 thiamine mononitrate (vit B1) 100 100 mg PO DAILY #30 tabs 10/02/21 mg tablet (Vitamin B-1 (mononitrate)) trazodone 50 mg tablet 50 mg PO DAILY #30 tabs 10/02/21 Allergies Allergy/AdvReac Type Severity Reaction Status Date / Time venom-honey bee Allergy Severe signs of Unverified 10/11/21 17:19 stroke pregabalin [From Lyrica] Allergy Mild Unverified 10/11/21 17:19 varenicline tartrate AdvReac Unknown Nausea Unverified 10/11/21 17:19 [From Chantix] General Stated Complaint: Nk/Back Pain SCOT: 4 Review of Systems All systems reviewed & are unremarkable except as noted in HPI and below Constitutional Constitutional: Denies chills and Denies fever(s) Eyes Eyes: Denies loss of vision Cardiovascular Cardiovascular: Denies chest pain and Denies dyspnea Respiratory Respiratory: Denies cough and Denies dyspnea Gastrointestinal Gastrointestinal: Denies abdominal pain, Denies nausea and Denies vomiting Musculoskeletal Musculoskeletal: Denies joint swelling Neurologic Neurologic: Denies loss of vision PFSH All Active Problems (Updated 03/21/22 @ 05:28 by Bill Joseph MD) Chronic pain (Chronic) Venous stasis ulcer (Acute) Acute on chronic diastolic (congestive) heart failure (Acute) Thrombocytopenia (Acute) Polymicrobial bacterial infection (Acute) Constipation (Chronic) MRSA cellulitis (Acute) Chronic anemia (Acute) Pressure ulcers of skin of multiple topographic sites (Acute) Chronic venous stasis dermatitis of both lower extremities (Acute) Polysubstance abuse (Acute) GERD (gastroesophageal reflux disease) (Chronic) Alcoholic cirrhosis of liver (Chronic) Medical History Acute alcohol intoxication Alcohol dependence Anemia Arthritis Bilateral leg edema Chronic pain Cirrhosis of liver Diabetic peripheral neuropathy Encephalopathy, hepatic Hepatitis C Hyperlipidemia Knee pain, right TIA (transient ischemic attack) TIA (transient ischemic attack) Ulnar neuropathy Urinary retention Surgical History H/O cervical spine surgery Hx of total knee arthroplasty Social History Smoking/Tobacco Use Status: Current every day Tobacco Type: cigarettes and e- cigarettes Smoking risk assessment performed?: Yes Alcohol Intake: current Alcohol Intake frequency: 3 or more drinks per day Alcohol type: beer, wine and hard liquor Drug use: Occasionally Substance use type: marijuana Details: whiskey daily Housing: apartment Number of Children: 3 What type of physical activity do you participate in: walking Do you feel safe at home: Yes Do you feel safe in your relationship?: Yes Exam Const General: no acute distress Orientation: alert HENMT Head: normal to inspection Ears: external ears normal General nose exam: external nose normal Mouth: moist mucous membranes Eyes General: appearance normal, both eyes and all related structures Neck Neck: normal visual inspection Resp Effort & Inspection: normal respiratory effort and able to speak in complete sentences Cardio Rate: regular rate Back/Spine/Pelvis Back: no CVA tenderness Skin General skin exam: no rashes or lesions noted Neuro General: patient alert and patient oriented x3 Extrem General: normal to inspection Psych Mental Status: mental status grossly normal Course Vital Signs Vital signs: Vital Signs Temperature 37.0 C 03/21/22 05:13 Pulse 89 03/21/22 05:13 Respiratory Rate 18 03/21/22 05:13 Blood Pressure 125/79 03/21/22 05:13 Pulse Oximetry 98 03/21/22 05:13 Temperature 37.0 C 03/21/22 05:13 Temperature Source Oral 03/21/22 05:13 Pulse 89 03/21/22 05:13 Respiratory Rate 18 03/21/22 05:13 Blood Pressure 125/79 03/21/22 05:13 Blood Pressure Position Supine 03/21/22 05:13 Pulse Oximetry 98 03/21/22 05:13 Oxygen Delivery Method Room Air 03/21/22 05:13 Oxygen Flow Rate 0 03/21/22 05:13 Pain Level 10 03/21/22 05:13 PAWSS Have you Been Recently Intoxicated or Drunk Within the Last 30 days?: No Have you Ever Experienced Previous Episodes of Alcohol Withdrawal?: No Have you ever Experienced Withdrawal Seizures?: No Have you ever Experienced Delirium Tremens(DT)s?: No Have you ever undergone Alcohol Rehabilitation Treatment (i.e, inpt ot outpatient treatment programs)?: No Have you ever Experienced Blackouts?: No Have you ever Combined Alcohol with other Downers within the last 90 days?: No Have you ever Combined Alcohol with any other Substance of Abuse during the last 90 days?: No Positive Blood Alcohol level on Presentation? [PCS.BAL]: No Evidence of Increased Autonomic Activity (i.e. HR>120, tremor, sweating, agitation, nausea)?: No Result: 0
== END 2022-03-21 06:00 | disposition home or self-care (01) ==
LOC: ER 06:01
PROVIDERS: Emergency Provider Emergency Medicine; PCP Family Medicine
DX: G62.89 Other specified polyneuropathies (principal); M79.18 Myalgia, other site
CPT/HCPCS: 99281; 99283

== ENCOUNTER 2022-03-23 15:30 | Outpatient (REF) | payer MEDICAID, SELFPAY ==
[2022-03-23 19:42] LABS: HCT 42.9 % (40.0-50.0); HGB 14.1 g/dL (13.5-17.5); MCH 28.7 pg (27.0-33.0); MCHC 32.9 % (32.0-36.0); MCV 87 fL (80-95); MPV 11.3 fL (8.0-11.0); Platelet Count 174 10^3/uL (130-400); RBC 4.91 10^6/uL (4.36-5.78); RDW 15.6 % (11.8-14.1); RDW-SD 49.2 fL; WBC 9.07 10^3/uL (4.4-10.8)
[2022-03-23 19:53] LABS: Prothrombin Time 9.9 sec (9.3-11.0)
[2022-03-23 20:16] LABS: Hemoglobin A1C 5.2 % (<5.7)
[2022-03-23 20:25] LABS: ALT 50 U/L (16-63); AST 35 U/L (15-37); Alkaline Phosphatase 88 U/L (46-116); Anion Gap 9.8 mmol/L (3-11); BUN 9 mg/dL (7-18); Bilirubin, Total 0.8 mg/dL (0.2-1.0); CO2 25.2 mmol/L (21.0-32.0); CREATININE 0.8 mg/dL (0.70-1.30); Calcium 9.4 mg/dL (8.5-10.1); Chloride 104 mmol/L (98-107); Estimated GFR 101.95 (mL/min/1.73m2); Glucose 95 mg/dL (74-106); Magnesium 1.8 mg/dL (1.8-2.4); Potassium 3.8 mmol/L (3.5-5.1); Sodium 139 mmol/L (136-145); Total Protein 7.9 g/dL (6.4-8.2); Vitamin B12 331 pg/mL (193-986)
== END 2022-03-23 15:31 | disposition home or self-care (01) ==
LOC: NCHCN 15:30
PROVIDERS: PCP Family Medicine; Visit Provider Family Medicine
DX: M48.02 Spinal stenosis, cervical region (principal); E11.40 Type 2 diabetes mellitus with diabetic neuropathy, unspecified; F10.20 Alcohol dependence, uncomplicated; K74.60 Unspecified cirrhosis of liver; G45.9 Transient cerebral ischemic attack, unspecified
CPT/HCPCS: 80053; 85027; 80307; 82607; 83036; 83735; 85610

== ENCOUNTER 2022-03-28 13:15 | Emergency (ER) | payer MEDICAID, SELFPAY ==
[2022-03-28] VITALS (23 sets, daily range): BP systolic 92–140; BP diastolic 64–93; PULSE 84–138; RESP 12–22; TEMP 36.8; O2SAT 93–100
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
[2022-03-28] MEDS: diphenhydrAMINE 50 MG/ML VIAL 25 MG IVP (14:05)
[2022-03-28] MEDS: Haloperidol 5 MG/ML VIAL 4 MG IM (14:05)
[2022-03-28] MEDS: LORazepam 2 MG/ML VIAL IM (14:05)
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
[2022-03-28 15:36] LABS: Lactate 2.3 mmol/L (0.6-1.4)
[2022-03-28 15:38] LABS: Abs Immature Grans 0.02 10^3/uL (0.0-0.06); Absolute Basophil Count 0.02 10^3/uL (0.0-0.2); Absolute Eosinophil Count 0.18 10^3/uL (0.0-0.7); Absolute Lymphocyte Count 1.43 10^3/uL (1.2-3.4); Absolute Monocyte Count 0.46 10^3/uL (0.1-0.8); Absolute Neutrophil Count 4.01 10^3/uL (1.2-6.7); Basophils % 0.3; Eosinophils % 2.9; HCT 38.7 % (40.0-50.0); HGB 12.7 g/dL (13.5-17.5); Immature Grans % 0.3; Lymphocytes % 23.4; MCH 29.5 pg (27.0-33.0); MCHC 32.8 % (32.0-36.0); MCV 90 fL (80-95); MPV 11.2 fL (8.0-11.0); Monocytes % 7.5; Neutrophils % 65.6; Platelet Count 124 10^3/uL (130-400); RDW 15.9 % (11.8-14.1); RDW-SD 52.6 fL; WBC 6.12 10^3/uL (4.4-10.8)
[2022-03-28 15:56] LABS: ALT 66 U/L (16-63); AST 109 U/L (15-37); Albumin 3.5 g/dL (3.4-5.0); Alkaline Phosphatase 76 U/L (46-116); Anion Gap 6.2 mmol/L (3-11); BUN 10 mg/dL (7-18); Bilirubin, Total 0.5 mg/dL (0.2-1.0); CO2 31.8 mmol/L (21.0-32.0); CREATININE 0.8 mg/dL (0.70-1.30); Chloride 105 mmol/L (98-107); Estimated GFR 101.95 (mL/min/1.73m2); Glucose 112 mg/dL (74-106); Potassium 3.8 mmol/L (3.5-5.1); Sodium 143 mmol/L (136-145)
[2022-03-28 17:24] LABS: ETHANOL BLOOD 236.1 mg/dL (<10)
[2022-03-28 17:36] LABS: Salicylate < 2.8 mg/dL (<2.8)
[2022-03-28 17:38] LABS: Acetaminophen < 2 ug/mL (10-30)
[2022-03-28] MEDS: Normal Saline 1,000 ML 1000 ML IV (17:51)
[2022-03-28] MEDS: Normal Saline 500 ML IV (18:00)
[2022-03-28] MEDS: cefTRIAXone 2 GM/50 ML BAG IVPB (18:08)
[2022-03-28] MEDS: Lactated Ringers 1,000 ML 1000 ML IV (19:00)
[2022-03-28 21:55] LABS: Lactate 1.9 mmol/L (0.6-1.4)
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
== END 2022-03-29 01:00 ==
PROVIDERS: Physician Assistant; Registered Nurse Emergency; Emergency Provider Student in an Organized Health Care Education/Training Program; PCP Family Medicine
DX: S80.811A Abrasion, right lower leg, initial encounter (principal); S60.222A Contusion of left hand, initial encounter; S60.221A Contusion of right hand, initial encounter; L03.116 Cellulitis of left lower limb; L03.115 Cellulitis of right lower limb; I50.33 Acute on chronic diastolic (congestive) heart failure; Z86.73 Personal history of transient ischemic attack (TIA), and cerebral infarction without residual deficits
CPT/HCPCS: 36415; 80053; 87040; 96361; 96365; 96372; 96375; 99284; 80320; 80329; 83605; 83735; 85025; J1200; J1630; J2060

== ENCOUNTER 2023-02-17 18:55 | Emergency (ER) | payer MEDICAID, SELFPAY ==
--- NOTE | 2023-02-17 19:33 | W.ED.GENAD ---
Discharge Plan Disposition [facility] Dis[facility] Condition: Stable Discharge Details Chief Complaint: GenMedical Clinical Impression: Encounter for medical screening examination Primary Care Provider: Sushil Figueroa ED Provider: Jimi Chris and New Rx's Prescriptions: No Action aspirin [Aspir-81] 81 MG tablet,delayed release (DR/EC) 81 mg PO DAILY quetiapine 25 mg Tablet 25 mg PO TID Qty: 30 0RF morphine 30 mg Tablet Extended Release 30 mg PO BID Qty: 30 0RF duloxetine 60 mg capsule,delayed release(DR/EC) 60 mg PO DAILY Qty: 30 1RF furosemide 20 mg Tablet 40 mg PO DAILY Qty: 60 1RF gabapentin 300 mg Capsule 900 mg PO TID Qty: 90 1RF lactulose 20 gram/30 mL Solution 45 g PO TID Qty: 1200 1RF spironolactone 50 mg Tablet 50 mg PO DAILY Qty: 30 1RF trazodone 50 mg Tablet 50 mg PO DAILY Qty: 30 1RF thiamine mononitrate (vit B1) [Vitamin B-1 (mononitrate)] 100 mg Tablet 100 mg PO DAILY Qty: 30 0RF morphine [MS Contin] 30 mg Tablet Extended Release 30 mg PO BID Qty: 30 0RF atorvastatin 40 mg tablet 40 mg PO DAILY Patient Comments: TAKE ONE TABLET BY MOUTH EVERY DAY tamsulosin 0.4 mg capsule 0.4 mg PO DAILY Patient Comments: TAKE TWO CAPSULES BY MOUTH EVERY DAY TO HELP URINE FLOW gabapentin 300 mg capsule 300 mg PO TID Patient Comments: TAKE ONE CAPSULE BY MOUTH THREE TIMES A DAY FOR PAIN polyethylene glycol 3350 [Gavilax] 17 gram/dose powder 17 g PO PRN PRN Patient Comments: TAKE 17 GRAMS BY MOUTH NEEDED DIRECTED duloxetine 30 mg capsule,delayed release(DR/EC) 30 mg PO DAILY Patient Comments: TAKE ONE CAPSULE BY MOUTH EVERY DAY buprenorphine-naloxone [Suboxone] 8-2 mg film Patient Comments: PLACE ONE FILM UNDER THE TONGUE EVERY DAY Medical Decision Making Patient presenting to ED with unclear complaint. Hospital does have a restraining order against this individual. Patient abusive and disruptive to the department. Has no specific complaint that is acute. Not cooperative with exam or vitals but did allow for fingerstick which was 235. Continued with swearing and verbal abuse without specific complaint and without answering questions. This is patient's typical behavior. Given no evidence of an acute emergent condition he is cleared for discharge. [facility] was contacted as patient continued to ramp up. Made verbal threats directly against myself. Kicked a director security risk management as well as began spitting at staff. Patient was discharged and removed from the ED by [facility]. Medical Records Medical records reviewed: Yes I reviewed the patient's medical records. HPI General Mode of arrival: wheelchair. Date/Time Provider Initiated Documentation: 02/17/23 18:57. Limitations to Documentation: other. Information obtained by: patient. HPI Narrative: Patient arrives to ED by private vehicle after a bystander at [facility] felt that the patient would benefit from evaluation. Patient began swearing and was abusive with staff immediately upon arrival. Patient reported to triage that he wanted to be seen for his chronic back pain. Patient continued to swear and verbally abused staff while being brought back into the room. Upon my questioning why the patient had presented to the ED he continued to swear and dodged question. Ultimately said he was diabetic and has not had his insulin for 3 to 4 days. Did not mention anything regarding back pain to me. Would not answer questions further and would not participate in a meaningful history. Related Data Home Medications Medication Instructions Recorded Confirmed aspirin 81 mg tablet,delayed 81 mg PO DAILY 03/15/17 10/11/21 release (Aspir-) duloxetine 60 mg capsule,delayed 60 mg PO DAILY #30 caps 10/02/21 10/11/21 release furosemide 20 mg tablet 40 mg (2 x 20 mg) PO DAILY #60 tabs 10/02/21 10/11/21 gabapentin 300 mg capsule 900 mg (3 x 300 mg) PO TID #90 caps 10/02/21 10/11/21 lactulose 20 gram/30 mL oral 45 g (67.5 mL) PO TID #1,200 mL 10/02/21 10/11/21 solution morphine 30 mg tablet,extended 30 mg PO BID #30 tabs 10/02/21 10/11/21 release morphine 30 mg tablet,extended 30 mg PO BID #30 tabs 10/02/21 10/11/21 release (MS Contin) quetiapine 25 mg tablet 25 mg PO TID #30 tabs 10/02/21 10/11/21 spironolactone 50 mg tablet 50 mg PO DAILY #30 tabs 10/02/21 10/11/21 thiamine mononitrate (vit B1) 100 100 mg PO DAILY #30 tabs 10/02/21 03/28/22 mg tablet (Vitamin B-1 (mononitrate)) trazodone 50 mg tablet 50 mg PO DAILY #30 tabs 10/02/21 10/11/21 atorvastatin 40 mg tablet 40 mg PO DAILY 03/28/22 03/28/22 buprenorphine 8 mg-naloxone 2 mg film 03/28/22 03/28/22 sublingual film (Suboxone) duloxetine 30 mg capsule,delayed 30 mg PO DAILY 03/28/22 03/28/22 release gabapentin 300 mg capsule 300 mg PO TID 03/28/22 03/28/22 polyethylene glycol 3350 17 17 g PO PRN PRN 03/28/22 03/28/22 gram/dose oral powder (Gavilax) tamsulosin 0.4 mg capsule 0.4 mg PO DAILY 03/28/22 03/28/22 Previous Rx's Medication Instructions Recorded duloxetine 60 mg capsule,delayed 60 mg PO DAILY #30 caps 10/02/21 release furosemide 20 mg tablet 40 mg (2 x 20 mg) PO DAILY #60 tabs 10/02/21 gabapentin 300 mg capsule 900 mg (3 x 300 mg) PO TID #90 caps 10/02/21 lactulose 20 gram/30 mL oral 45 g (67.5 mL) PO TID #1,200 mL 10/02/21 solution morphine 30 mg tablet,extended 30 mg PO BID #30 tabs 10/02/21 release morphine 30 mg tablet,extended 30 mg PO BID #30 tabs 10/02/21 release (MS Contin) quetiapine 25 mg tablet 25 mg PO TID #30 tabs 10/02/21 spironolactone 50 mg tablet 50 mg PO DAILY #30 tabs 10/02/21 thiamine mononitrate (vit B1) 100 100 mg PO DAILY #30 tabs 10/02/21 mg tablet (Vitamin B-1 (mononitrate)) trazodone 50 mg tablet 50 mg PO DAILY #30 tabs 10/02/21 Allergies Allergy/AdvReac Type Severity Reaction Status Date / Time venom-honey bee Allergy Severe signs of Unverified 03/28/22 18:43 stroke pregabalin [From Lyrica] Allergy Mild Unverified 03/28/22 18:43 varenicline tartrate AdvReac Unknown Nausea Unverified 03/28/22 18:43 [From Chantix] General SCOT: 3 Review of Systems Unobtainable due to PFSH All Active Problems (Updated 02/17/23 @ 20:47 by Jimi Chris MD) Encounter for medical screening examination (Acute) Knee pain, right (Acute) Acute alcohol intoxication (Acute) Venous stasis ulcer (Acute) Acute on chronic diastolic (congestive) heart failure (Acute) Thrombocytopenia (Acute) Polymicrobial bacterial infection (Acute) Constipation (Chronic) MRSA cellulitis (Acute) Chronic anemia (Acute) Pressure ulcers of skin of multiple topographic sites (Acute) Chronic venous stasis dermatitis of both lower extremities (Acute) GERD (gastroesophageal reflux disease) (Chronic) Alcoholic cirrhosis of liver (Chronic) Medical History Diabetes mellitus Polysubstance abuse Anemia Encephalopathy, hepatic TIA (transient ischemic attack) Diabetic peripheral neuropathy Hepatitis C Cirrhosis of liver Hyperlipidemia Arthritis Bilateral leg edema Ulnar neuropathy Chronic pain Alcohol dependence Surgical History Hx of total knee arthroplasty H/O cervical spine surgery Social History Smoking/Tobacco Use Status: Current every day Tobacco Type: cigarettes and e-cigarettes Smoking risk assessment performed?: Yes Alcohol Intake: current Alcohol Intake frequency: 3 or more drinks per day Alcohol type: beer, wine and hard liquor Drug use: Occasionally Substance use type: marijuana Details: whiskey daily Housing: apartment Number of Children: 3 What type of physical activity do you participate in: walking Do you feel safe at home: Yes Do you feel safe in your relationship?: Yes Exam Narrative Exam Narrative: Const: WDWN in NAD. HEENT: NC/AT. Neck: Supple. Trachea midline. Lungs: Normal respiratory effort. Neuro: A+O x 3. Normal speech, mentation. Cranial nerves II - XII grossly intact. No gross motor or sensory deficit. Psych: Loud, belligerent, verbally abusive, uncooperative.
[2023-02-17 19:55] VITALS: RESP 15
== END 2023-02-17 20:48 ==
PROVIDERS: Emergency Provider Emergency Medicine; PCP Family Medicine
DX: Z13.9 Encounter for screening, unspecified (principal)

== ENCOUNTER 2023-02-24 19:02 | Emergency (ER) | payer MEDICAID, SELFPAY ==
[2023-02-24 18:55] VITALS: BP 117/91; PULSE 81; RESP 16; TEMP 36.4; O2SAT 98
--- NOTE | 2023-02-24 19:15 | ED.GENADUL_ITS ---
Discharge Plan Disposition Patient Disposition: Home Condition: Stable Discharge Details Clinical Impression: Chronic back pain Primary Care Provider: Sushil Figueroa ED Provider: Renate Hyde Home Meds and New Rx's Prescriptions: Continued aspirin [Aspir-81] 81 MG tablet,delayed release (DR/EC) 81 mg PO DAILY quetiapine 25 mg Tablet 25 mg PO TID Qty: 30 0RF morphine 30 mg Tablet Extended Release 30 mg PO BID Qty: 30 0RF duloxetine 60 mg capsule,delayed release(DR/EC) 60 mg PO DAILY Qty: 30 1RF furosemide 20 mg Tablet 40 mg PO DAILY Qty: 60 1RF gabapentin 300 mg Capsule 900 mg PO TID Qty: 90 1RF lactulose 20 gram/30 mL Solution 45 g PO TID Qty: 1200 1RF spironolactone 50 mg Tablet 50 mg PO DAILY Qty: 30 1RF trazodone 50 mg Tablet 50 mg PO DAILY Qty: 30 1RF thiamine mononitrate (vit B1) [Vitamin B-1 (mononitrate)] 100 mg Tablet 100 mg PO DAILY Qty: 30 0RF morphine [MS Contin] 30 mg Tablet Extended Release 30 mg PO BID Qty: 30 0RF atorvastatin 40 mg tablet 40 mg PO DAILY Patient Comments: TAKE ONE TABLET BY MOUTH EVERY DAY tamsulosin 0.4 mg capsule 0.4 mg PO DAILY Patient Comments: TAKE TWO CAPSULES BY MOUTH EVERY DAY TO HELP URINE FLOW gabapentin 300 mg capsule 300 mg PO TID Patient Comments: TAKE ONE CAPSULE BY MOUTH THREE TIMES A DAY FOR PAIN polyethylene glycol 3350 [Gavilax] 17 gram/dose powder 17 g PO PRN PRN Patient Comments: TAKE 17 GRAMS BY MOUTH NEEDED DIRECTED duloxetine 30 mg capsule,delayed release(DR/EC) 30 mg PO DAILY Patient Comments: TAKE ONE CAPSULE BY MOUTH EVERY DAY buprenorphine-naloxone [Suboxone] 8-2 mg film Patient Comments: PLACE ONE FILM UNDER THE TONGUE EVERY DAY Discharge Instructions Instructions: Chronic Back Pain (DC) Additional Instructions: You can call 211 for help with housing Take all your medications as prescribed Referrals: Sushil Figueroa [Primary Care Provider] - Medical Decision Making Chronically ill patient appears here by EMS complaining of chronic back pain. Apparently care beds are closed per the patient's we went [facility]. EMS was called to transport him here. [facility]ortedly just released from [facility] today and no place to stay. His vital signs are stable physical exam unremarkable patient is known to me and appears at his baseline. I will provide lidocaine patch acetaminophen and ibuprofen. He has been belligerent and uncooperative with history taking. There is no concern for emergency medical condition and he is medically cleared. Symptoms are chronic and his visit stems from his homelessness. He is stable for discharge Medical Records Medical records reviewed: Yes I reviewed the patient's medical records. HPI General Mode of arrival: EMS . Date/Time Provider Initiated Documentation: 02/24/23 19:12 . Limitations to Documentation: other (behavioral) . Information obtained by: patient . HPI Narrative: This is a 62-year-old male patient multiple comorbidities who presents by EMS for complaints of chronic arthritic back pain, he is unable to tell me what he is taking today for the pain he is not cooperative with history taking. He appears at his baseline and is hemodynamically stable Related Data Home Medications Medication Instructions Recorded Confirmed aspirin 81 mg tablet,delayed 81 mg PO DAILY 03/15/17 10/11/21 release (Aspir-) duloxetine 60 mg capsule,delayed 60 mg PO DAILY #30 caps 10/02/21 10/11/21 release furosemide 20 mg tablet 40 mg (2 x 20 mg) PO DAILY #60 tabs 10/02/21 10/11/21 gabapentin 300 mg capsule 900 mg (3 x 300 mg) PO TID #90 caps 10/02/21 10/11/21 lactulose 20 gram/30 mL oral 45 g (67.5 mL) PO TID #1,200 mL 10/02/21 10/11/21 solution morphine 30 mg tablet,extended 30 mg PO BID #30 tabs 10/02/21 10/11/21 release morphine 30 mg tablet,extended 30 mg PO BID #30 tabs 10/02/21 10/11/21 release (MS Contin) quetiapine 25 mg tablet 25 mg PO TID #30 tabs 10/02/21 10/11/21 spironolactone 50 mg tablet 50 mg PO DAILY #30 tabs 10/02/21 10/11/21 thiamine mononitrate (vit B1) 100 100 mg PO DAILY #30 tabs 10/02/21 03/28/22 mg tablet (Vitamin B-1 (mononitrate)) trazodone 50 mg tablet 50 mg PO DAILY #30 tabs 10/02/21 10/11/21 atorvastatin 40 mg tablet 40 mg PO DAILY 03/28/22 03/28/22 buprenorphine 8 mg-naloxone 2 mg film 03/28/22 03/28/22 sublingual film (Suboxone) duloxetine 30 mg capsule,delayed 30 mg PO DAILY 03/28/22 03/28/22 release gabapentin 300 mg capsule 300 mg PO TID 03/28/22 03/28/22 polyethylene glycol 3350 17 17 g PO PRN PRN 03/28/22 03/28/22 gram/dose oral powder (Gavilax) tamsulosin 0.4 mg capsule 0.4 mg PO DAILY 03/28/22 03/28/22 Previous Rx's Medication Instructions Recorded duloxetine 60 mg capsule,delayed 60 mg PO DAILY #30 caps 10/02/21 release furosemide 20 mg tablet 40 mg (2 x 20 mg) PO DAILY #60 tabs 10/02/21 gabapentin 300 mg capsule 900 mg (3 x 300 mg) PO TID #90 caps 10/02/21 lactulose 20 gram/30 mL oral 45 g (67.5 mL) PO TID #1,200 mL 10/02/21 solution morphine 30 mg tablet,extended 30 mg PO BID #30 tabs 10/02/21 release morphine 30 mg tablet,extended 30 mg PO BID #30 tabs 10/02/21 release (MS Contin) quetiapine 25 mg tablet 25 mg PO TID #30 tabs 10/02/21 spironolactone 50 mg tablet 50 mg PO DAILY #30 tabs 10/02/21 thiamine mononitrate (vit B1) 100 100 mg PO DAILY #30 tabs 10/02/21 mg tablet (Vitamin B-1 (mononitrate)) trazodone 50 mg tablet 50 mg PO DAILY #30 tabs 10/02/21 Allergies Allergy/AdvReac Type Severity Reaction Status Date / Time venom-honey bee Allergy Severe signs of Unverified 02/24/23 19:08 stroke pregabalin [From Lyrica] Allergy Mild Unverified 02/24/23 19:08 varenicline tartrate AdvReac Unknown Nausea Unverified 02/24/23 19:08 [From Chantix] General Stated Complaint: Nk/Back Pain SCOT: 4 Review of Systems All systems reviewed & are unremarkable except as noted in HPI and below PFSH All Active Problems (Updated 02/24/23 @ 19:20 by Renate Hyde NP) Chronic back pain (Acute) Encounter for medical screening examination (Acute) Knee pain, right (Acute) Acute alcohol intoxication (Acute) Venous stasis ulcer (Acute) Acute on chronic diastolic (congestive) heart failure (Acute) Thrombocytopenia (Acute) Polymicrobial bacterial infection (Acute) Constipation (Chronic) MRSA cellulitis (Acute) Chronic anemia (Acute) Pressure ulcers of skin of multiple topographic sites (Acute) Chronic venous stasis dermatitis of both lower extremities (Acute) GERD (gastroesophageal reflux disease) (Chronic) Alcoholic cirrhosis of liver (Chronic) Medical History Diabetes mellitus Polysubstance abuse Anemia Encephalopathy, hepatic TIA (transient ischemic attack) Diabetic peripheral neuropathy Hepatitis C Cirrhosis of liver Hyperlipidemia Arthritis Bilateral leg edema Ulnar neuropathy Chronic pain Alcohol dependence Surgical History Hx of total knee arthroplasty H/O cervical spine surgery Social History Smoking/Tobacco Use Status: Current every day Tobacco Type: cigarettes and e- cigarettes Smoking risk assessment performed?: Yes Alcohol Intake: current Alcohol Intake frequency: 3 or more drinks per day Alcohol type: beer, wine and hard liquor Drug use: Occasionally Substance use type: marijuana Details: whiskey daily Housing: apartment Number of Children: 3 What type of physical activity do you participate in: walking Do you feel safe at home: Yes Do you feel safe in your relationship?: Yes Course Vital Signs Vital signs: Vital Signs Temperature 36.4 C L 02/24/23 18:55 Pulse 81 02/24/23 18:55 Respiratory Rate 16 02/24/23 18:55 Blood Pressure 117/91 H 02/24/23 18:55 Pulse Oximetry 98 02/24/23 18:55 Temperature 36.4 C L 02/24/23 18:55 Temperature Source Temporal Artery Scan 02/24/23 18:55 Pulse 81 02/24/23 18:55 Respiratory Rate 16 02/24/23 18:55 Respiratory Effort Normal 02/24/23 19:05 Blood Pressure 117/91 H 02/24/23 18:55 Blood Pressure Position Sitting 02/24/23 18:55 Pulse Oximetry 98 02/24/23 18:55 Oxygen Delivery Method Room Air 02/24/23 18:55 Oxygen Flow Rate 0 02/24/23 18:55 Pain Level 10 02/24/23 18:55
== END 2023-02-24 19:29 | disposition home or self-care (01) ==
PROVIDERS: Emergency Provider Nurse Practitioner Acute Care; PCP Family Medicine
DX: G89.29 Other chronic pain (principal); M54.9 Dorsalgia, unspecified; Z59.00 Homelessness unspecified
CPT/HCPCS: 99282

== ENCOUNTER 2023-02-25 20:08 | Emergency (ER) | payer MEDICAID, SELFPAY ==
[2023-02-25 19:37] VITALS: BP 101/72; PULSE 86; RESP 30; TEMP 36.7; O2SAT 95
== END 2023-02-25 20:49 ==
LOC: ER 20:16
PROVIDERS: Emergency Provider Student in an Organized Health Care Education/Training Program; PCP Family Medicine
DX: Z53.21 Procedure and treatment not carried out due to patient leaving prior to being seen by health care provider (principal)

== ENCOUNTER 2023-02-26 20:41 | Emergency (ER) | payer MEDICAID, SELFPAY ==
[2023-02-26 20:44] VITALS: BP 109/69; PULSE 97; RESP 18; TEMP 36.6; O2SAT 98
--- NOTE | 2023-02-26 20:48 | ED.GENADUL_ITS ---
Discharge Plan Disposition Patient Disposition: Home Condition: Stable Discharge Details Clinical Impression: Chronic back pain Primary Care Provider: Sushil Figueroa ED Provider: Vaishali Pond Home Meds and New Rx's Prescriptions: Continued aspirin [Aspir-81] 81 MG tablet,delayed release (DR/EC) 81 mg PO DAILY quetiapine 25 mg Tablet 25 mg PO TID Qty: 30 0RF morphine 30 mg Tablet Extended Release 30 mg PO BID Qty: 30 0RF duloxetine 60 mg capsule,delayed release(DR/EC) 60 mg PO DAILY Qty: 30 1RF furosemide 20 mg Tablet 40 mg PO DAILY Qty: 60 1RF gabapentin 300 mg Capsule 900 mg PO TID Qty: 90 1RF lactulose 20 gram/30 mL Solution 45 g PO TID Qty: 1200 1RF spironolactone 50 mg Tablet 50 mg PO DAILY Qty: 30 1RF trazodone 50 mg Tablet 50 mg PO DAILY Qty: 30 1RF thiamine mononitrate (vit B1) [Vitamin B-1 (mononitrate)] 100 mg Tablet 100 mg PO DAILY Qty: 30 0RF morphine [MS Contin] 30 mg Tablet Extended Release 30 mg PO BID Qty: 30 0RF atorvastatin 40 mg tablet 40 mg PO DAILY Patient Comments: TAKE ONE TABLET BY MOUTH EVERY DAY tamsulosin 0.4 mg capsule 0.4 mg PO DAILY Patient Comments: TAKE TWO CAPSULES BY MOUTH EVERY DAY TO HELP URINE FLOW gabapentin 300 mg capsule 300 mg PO TID Patient Comments: TAKE ONE CAPSULE BY MOUTH THREE TIMES A DAY FOR PAIN polyethylene glycol 3350 [Gavilax] 17 gram/dose powder 17 g PO PRN PRN Patient Comments: TAKE 17 GRAMS BY MOUTH NEEDED DIRECTED duloxetine 30 mg capsule,delayed release(DR/EC) 30 mg PO DAILY Patient Comments: TAKE ONE CAPSULE BY MOUTH EVERY DAY buprenorphine-naloxone [Suboxone] 8-2 mg film Patient Comments: PLACE ONE FILM UNDER THE TONGUE EVERY DAY Discharge Instructions Instructions: Chronic Back Pain (DC) Additional Instructions: Please take Tylenol or Ibuprofen with food every 4-6 hours as needed for pain and swelling. Alternate ice and heat. Follow up with primary care provider in 3-5 days. Return to ED sooner if any worsening or concerns. Increase oral fluids. Referrals: Sushil Figueroa [Primary Care Provider] - 3 days Medical Decision Making 62-year-old who is well-known to the department presents via EMS with chronic back pain. He has been drinking alcohol prior to arrival. He does have a no trespass order with the hospital. He is usually disruptive and combative on his previous visits. He does not wish to tell me why he is here. He does appear agitated. He denies any known trauma no nausea vomiting diarrhea vital signs are stable. Tylenol lidocaine patch ordered. No imaging necessary at this time due to chronic pain. Does have a past medical history of diabetes mellitus, anemia, encephalopathy, TIA, hepatitis C. Liver cirrhosis and alcohol dependence Security in triage with patient. patient is requesting to lay down and a room with a TV. Patient discharged from department in accompany with security. This text was generated using [employer] dictation system, please disregard any oddities of phrase or misspellings. Medical Records Medical records reviewed: Yes I reviewed the patient's medical records. HPI General Mode of arrival: EMS . Date/Time Provider Initiated Documentation: 02/26/23 20:44 . Limitations to Documentation: no limitations . Information obtained by: patient, EMS and old records reviewed . HPI Narrative: 62-year-old who is well-known to the department presents via EMS with chronic back pain. He has been drinking alcohol prior to arrival. He does have a no trespass order with the hospital. He is usually disruptive and combative on his previous visits. He does not wish to tell me why he is here. He does appear agitated. He denies any known trauma no nausea vomiting diarrhea vital signs are stable. Related Data Home Medications Medication Instructions Recorded Confirmed aspirin 81 mg tablet,delayed 81 mg PO DAILY 03/15/17 10/11/21 release (Aspir-) duloxetine 60 mg capsule,delayed 60 mg PO DAILY #30 caps 10/02/21 10/11/21 release furosemide 20 mg tablet 40 mg (2 x 20 mg) PO DAILY #60 tabs 10/02/21 10/11/21 gabapentin 300 mg capsule 900 mg (3 x 300 mg) PO TID #90 caps 10/02/21 10/11/21 lactulose 20 gram/30 mL oral 45 g (67.5 mL) PO TID #1,200 mL 10/02/21 10/11/21 solution morphine 30 mg tablet,extended 30 mg PO BID #30 tabs 10/02/21 10/11/21 release morphine 30 mg tablet,extended 30 mg PO BID #30 tabs 10/02/21 10/11/21 release (MS Contin) quetiapine 25 mg tablet 25 mg PO TID #30 tabs 10/02/21 10/11/21 spironolactone 50 mg tablet 50 mg PO DAILY #30 tabs 10/02/21 10/11/21 thiamine mononitrate (vit B1) 100 100 mg PO DAILY #30 tabs 10/02/21 03/28/22 mg tablet (Vitamin B-1 (mononitrate)) trazodone 50 mg tablet 50 mg PO DAILY #30 tabs 10/02/21 10/11/21 atorvastatin 40 mg tablet 40 mg PO DAILY 03/28/22 03/28/22 buprenorphine 8 mg-naloxone 2 mg film 03/28/22 03/28/22 sublingual film (Suboxone) duloxetine 30 mg capsule,delayed 30 mg PO DAILY 03/28/22 03/28/22 release gabapentin 300 mg capsule 300 mg PO TID 03/28/22 03/28/22 polyethylene glycol 3350 17 17 g PO PRN PRN 03/28/22 03/28/22 gram/dose oral powder (Gavilax) tamsulosin 0.4 mg capsule 0.4 mg PO DAILY 03/28/22 03/28/22 Previous Rx's Medication Instructions Recorded duloxetine 60 mg capsule,delayed 60 mg PO DAILY #30 caps 10/02/21 release furosemide 20 mg tablet 40 mg (2 x 20 mg) PO DAILY #60 tabs 10/02/21 gabapentin 300 mg capsule 900 mg (3 x 300 mg) PO TID #90 caps 10/02/21 lactulose 20 gram/30 mL oral 45 g (67.5 mL) PO TID #1,200 mL 10/02/21 solution morphine 30 mg tablet,extended 30 mg PO BID #30 tabs 10/02/21 release morphine 30 mg tablet,extended 30 mg PO BID #30 tabs 10/02/21 release (MS Contin) quetiapine 25 mg tablet 25 mg PO TID #30 tabs 10/02/21 spironolactone 50 mg tablet 50 mg PO DAILY #30 tabs 10/02/21 thiamine mononitrate (vit B1) 100 100 mg PO DAILY #30 tabs 10/02/21 mg tablet (Vitamin B-1 (mononitrate)) trazodone 50 mg tablet 50 mg PO DAILY #30 tabs 10/02/21 Allergies Allergy/AdvReac Type Severity Reaction Status Date / Time venom-honey bee Allergy Severe signs of Unverified 02/24/23 19:08 stroke pregabalin [From Lyrica] Allergy Mild Unverified 02/24/23 19:08 varenicline tartrate AdvReac Unknown Nausea Unverified 02/24/23 19:08 [From Chantix] General Stated Complaint: Nk/Back Pain SCOT: 4 Review of Systems Musculoskeletal Musculoskeletal: Reports as per HPI and Reports back pain PFSH All Active Problems (Updated 02/26/23 @ 20:51 by Vaishali Pond NP) Chronic back pain (Acute) Encounter for medical screening examination (Acute) Knee pain, right (Acute) Acute alcohol intoxication (Acute) Venous stasis ulcer (Acute) Acute on chronic diastolic (congestive) heart failure (Acute) Thrombocytopenia (Acute) Polymicrobial bacterial infection (Acute) Constipation (Chronic) MRSA cellulitis (Acute) Chronic anemia (Acute) Pressure ulcers of skin of multiple topographic sites (Acute) Chronic venous stasis dermatitis of both lower extremities (Acute) GERD (gastroesophageal reflux disease) (Chronic) Alcoholic cirrhosis of liver (Chronic) Medical History Diabetes mellitus Polysubstance abuse Anemia Encephalopathy, hepatic TIA (transient ischemic attack) Diabetic peripheral neuropathy Hepatitis C Cirrhosis of liver Hyperlipidemia Arthritis Bilateral leg edema Ulnar neuropathy Chronic pain Alcohol dependence Surgical History Hx of total knee arthroplasty H/O cervical spine surgery Social History Smoking/Tobacco Use Status: Current every day Tobacco Type: cigarettes and e- cigarettes Smoking risk assessment performed?: Yes Alcohol Intake: current Alcohol Intake frequency: 3 or more drinks per day Alcohol type: beer, wine and hard liquor Drug use: Occasionally Substance use type: marijuana Details: whiskey daily Housing: apartment Number of Children: 3 What type of physical activity do you participate in: walking Do you feel safe at home: Yes Do you feel safe in your relationship?: Yes Exam Back/Spine/Pelvis Back: no CVA tenderness Cervical Spine: normal cervical lordosis Thoracic/Lumbar Spine: thoracic and lumbar spine normal to inspection Course Vital Signs Vital signs: Vital Signs Temperature 36.6 C 02/26/23 20:44 Pulse 97 H 02/26/23 20:44 Respiratory Rate 18 02/26/23 20:44 Blood Pressure 109/69 02/26/23 20:44 Pulse Oximetry 98 02/26/23 20:44 Temperature 36.6 C 02/26/23 20:44 Temperature Source Skin 02/26/23 20:44 Pulse 97 H 02/26/23 20:44 Respiratory Rate 18 02/26/23 20:44 Blood Pressure 109/69 02/26/23 20:44 Blood Pressure Position Sitting 02/26/23 20:44 Pulse Oximetry 98 02/26/23 20:44 Oxygen Delivery Method Room Air 02/26/23 20:44 Oxygen Flow Rate 0 02/26/23 20:44 Pain Level 10 02/26/23 20:44
[2023-02-26] MEDS: Acetaminophen 500 MG TAB PO (20:52)
[2023-02-26] MEDS: Lidocaine 5% Patch 1 PATCH TP (20:53)
== END 2023-02-26 21:00 | disposition home or self-care (01) ==
LOC: ER 22:46
PROVIDERS: Emergency Provider Registered Nurse Emergency; PCP Family Medicine
DX: M54.50 Low back pain, unspecified (principal); G89.29 Other chronic pain; E11.42 Type 2 diabetes mellitus with diabetic polyneuropathy; I50.33 Acute on chronic diastolic (congestive) heart failure; K70.30 Alcoholic cirrhosis of liver without ascites; B18.2 Chronic viral hepatitis C; F17.210 Nicotine dependence, cigarettes, uncomplicated; Z79.82 Long term (current) use of aspirin; Z79.899 Other long term (current) drug therapy; Z59.00 Homelessness unspecified
CPT/HCPCS: 82962; 99283; 99282

== ENCOUNTER 2023-03-01 15:44 | Emergency (ER) | payer MEDICAID, SELFPAY ==
[2023-03-01 16:00] VITALS: BP 111/87; PULSE 97; RESP 18; TEMP 37.2; O2SAT 94
--- NOTE | 2023-03-01 16:16 | W.ED.GENAD ---
Discharge Plan Disposition Patient Disposition: Home Condition: Good Discharge Details Chief Complaint: Fall/Non TraumaCriteria Clinical Impression: Low back pain, Homeless Primary Care Provider: Sushil Figueroa ED Provider: Stephen Joseph Home Meds and New Rx's Prescriptions: No Action aspirin [Aspir-81] 81 MG tablet,delayed release (DR/EC) 81 mg PO DAILY quetiapine 25 mg Tablet 25 mg PO TID Qty: 30 0RF morphine 30 mg Tablet Extended Release 30 mg PO BID Qty: 30 0RF duloxetine 60 mg capsule,delayed release(DR/EC) 60 mg PO DAILY Qty: 30 1RF furosemide 20 mg Tablet 40 mg PO DAILY Qty: 60 1RF gabapentin 300 mg Capsule 900 mg PO TID Qty: 90 1RF lactulose 20 gram/30 mL Solution 45 g PO TID Qty: 1200 1RF spironolactone 50 mg Tablet 50 mg PO DAILY Qty: 30 1RF trazodone 50 mg Tablet 50 mg PO DAILY Qty: 30 1RF thiamine mononitrate (vit B1) [Vitamin B-1 (mononitrate)] 100 mg Tablet 100 mg PO DAILY Qty: 30 0RF morphine [MS Contin] 30 mg Tablet Extended Release 30 mg PO BID Qty: 30 0RF atorvastatin 40 mg tablet 40 mg PO DAILY Patient Comments: TAKE ONE TABLET BY MOUTH EVERY DAY tamsulosin 0.4 mg capsule 0.4 mg PO DAILY Patient Comments: TAKE TWO CAPSULES BY MOUTH EVERY DAY TO HELP URINE FLOW gabapentin 300 mg capsule 300 mg PO TID Patient Comments: TAKE ONE CAPSULE BY MOUTH THREE TIMES A DAY FOR PAIN polyethylene glycol 3350 [Gavilax] 17 gram/dose powder 17 g PO PRN PRN Patient Comments: TAKE 17 GRAMS BY MOUTH NEEDED DIRECTED duloxetine 30 mg capsule,delayed release(DR/EC) 30 mg PO DAILY Patient Comments: TAKE ONE CAPSULE BY MOUTH EVERY DAY buprenorphine-naloxone [Suboxone] 8-2 mg film Patient Comments: PLACE ONE FILM UNDER THE TONGUE EVERY DAY Discharge Instructions Instructions: Low Back Strain (ED) Additional Instructions: You were seen in the emergency department for low back pain and homelessness. We gave you some Tylenol and for your back pain. Follow-up with your primary care doctor in the [facility] spinal surgeon to refer to previously for your chronic back pain. You should take [id number] Tylenol and ibuprofen per bottle directions for recurrent back pain. You should call 211 regarding your homelessness. Our nurse outreach case manager made a referral to [facility] for you and they will be reaching out to you. Medical Decision Making 62-year-old male presents with homelessness. Asking to stay here in the emergency department for the night. Patient states he has burned his bridges at multiple other resources for homeless shelters due to intoxication and agitation. I offered to let him speak with our nurse outreach case manager and they have been paged. He has some chronic back pain that has not changed. No red flag symptoms concerning for cord compression or spinal epidural abscess and no role for advanced imaging or other testing at this time. Will await case management evaluation and give him some Tylenol and ibuprofen while he is waiting. 428pm Spoke to care management. They are recommending he call 211 tonight. They are making a referral for [facility] to create a better outpatient plan for him. Patient is agreeable with this plan. We will give some Tylenol and ibuprofen for his chronic back pain and discharged with return precautions. HPI General Mode of arrival: EMS. Date/Time Provider Initiated Documentation: 03/01/23 15:46. Limitations to Documentation: no limitations. Information obtained by: patient. HPI Narrative: 62-year-old male presents with homelessness. He was at the [facility] and [facility]. Apparently did not want to leave. Agreed to come with EMS because he apparently fell a couple times there. Denies any injuries from the fall. No hit head or loss of consciousness. Not on any blood thinners. He says he is homeless and is looking for a place to stay. Has chronic back pain that he does not have home medications for. I told him I would prescribe him some medications for his back pain but he says he could not afford the prescriptions anyways. He denies any other complaints. No numbness tingling or weakness in the extremities. No bowel or bladder incontinence or retention. No IV drug use. Admits to alcohol use. Related Data Home Medications Medication Instructions Recorded Confirmed aspirin 81 mg tablet,delayed 81 mg PO DAILY 03/15/17 10/11/21 release (Aspir-) duloxetine 60 mg capsule,delayed 60 mg PO DAILY #30 caps 10/02/21 10/11/21 release furosemide 20 mg tablet 40 mg (2 x 20 mg) PO DAILY #60 tabs 10/02/21 10/11/21 gabapentin 300 mg capsule 900 mg (3 x 300 mg) PO TID #90 caps 10/02/21 10/11/21 lactulose 20 gram/30 mL oral 45 g (67.5 mL) PO TID #1,200 mL 10/02/21 10/11/21 solution morphine 30 mg tablet,extended 30 mg PO BID #30 tabs 10/02/21 10/11/21 release morphine 30 mg tablet,extended 30 mg PO BID #30 tabs 10/02/21 10/11/21 release (MS Contin) quetiapine 25 mg tablet 25 mg PO TID #30 tabs 10/02/21 10/11/21 spironolactone 50 mg tablet 50 mg PO DAILY #30 tabs 10/02/21 10/11/21 thiamine mononitrate (vit B1) 100 100 mg PO DAILY #30 tabs 10/02/21 03/28/22 mg tablet (Vitamin B-1 (mononitrate)) trazodone 50 mg tablet 50 mg PO DAILY #30 tabs 10/02/21 10/11/21 atorvastatin 40 mg tablet 40 mg PO DAILY 03/28/22 03/28/22 buprenorphine 8 mg-naloxone 2 mg film 03/28/22 03/28/22 sublingual film (Suboxone) duloxetine 30 mg capsule,delayed 30 mg PO DAILY 03/28/22 03/28/22 release gabapentin 300 mg capsule 300 mg PO TID 03/28/22 03/28/22 polyethylene glycol 3350 17 17 g PO PRN PRN 03/28/22 03/28/22 gram/dose oral powder (Gavilax) tamsulosin 0.4 mg capsule 0.4 mg PO DAILY 03/28/22 03/28/22 Previous Rx's Medication Instructions Recorded duloxetine 60 mg capsule,delayed 60 mg PO DAILY #30 caps 10/02/21 release furosemide 20 mg tablet 40 mg (2 x 20 mg) PO DAILY #60 tabs 10/02/21 gabapentin 300 mg capsule 900 mg (3 x 300 mg) PO TID #90 caps 10/02/21 lactulose 20 gram/30 mL oral 45 g (67.5 mL) PO TID #1,200 mL 10/02/21 solution morphine 30 mg tablet,extended 30 mg PO BID #30 tabs 10/02/21 release morphine 30 mg tablet,extended 30 mg PO BID #30 tabs 10/02/21 release (MS Contin) quetiapine 25 mg tablet 25 mg PO TID #30 tabs 10/02/21 spironolactone 50 mg tablet 50 mg PO DAILY #30 tabs 10/02/21 thiamine mononitrate (vit B1) 100 100 mg PO DAILY #30 tabs 10/02/21 mg tablet (Vitamin B-1 (mononitrate)) trazodone 50 mg tablet 50 mg PO DAILY #30 tabs 10/02/21 Allergies Allergy/AdvReac Type Severity Reaction Status Date / Time venom-honey bee Allergy Severe signs of Unverified 03/01/23 16:03 stroke pregabalin [From Lyrica] Allergy Mild Unverified 03/01/23 16:03 varenicline tartrate AdvReac Unknown Nausea Unverified 03/01/23 16:03 [From Chantix] General Stated Complaint: Fall/Non TraumaCriteria SCOT: 4 Review of Systems Constitutional Constitutional: Denies chills, Denies fever(s) and Denies headache(s) Eyes Eyes: Denies change in vision ENT Ears, Nose, Mouth, and Throat: Denies headache(s) and Denies odynophagia Cardiovascular Cardiovascular: Denies chest pain and Denies dyspnea Respiratory Respiratory: Denies dyspnea Gastrointestinal Gastrointestinal: Denies abdominal pain, Denies diarrhea, Denies nausea, Denies odynophagia and Denies vomiting Genitourinary Genitourinary: Denies dysuria Musculoskeletal Musculoskeletal: Reports back pain and Denies myalgias Integumentary/Breasts Skin/Breast: Denies changing lesions Neurologic Neurologic: Denies behavioral changes and Denies headache(s) Psychiatric Psychiatric: Denies behavioral changes Endocrine Endocrine: Denies heat intolerance Hematologic/Lymphatic Hematologic/Lymphatic: Denies lymphadenopathy PFSH All Active Problems (Updated 03/01/23 @ 16:30 by Stephen Joseph MD) Homeless (Acute) Low back pain (Acute) Chronic back pain (Acute) Encounter for medical screening examination (Acute) Knee pain, right (Acute) Acute alcohol intoxication (Acute) Venous stasis ulcer (Acute) Acute on chronic diastolic (congestive) heart failure (Acute) Thrombocytopenia (Acute) Polymicrobial bacterial infection (Acute) Constipation (Chronic) MRSA cellulitis (Acute) Chronic anemia (Acute) Pressure ulcers of skin of multiple topographic sites (Acute) Chronic venous stasis dermatitis of both lower extremities (Acute) GERD (gastroesophageal reflux disease) (Chronic) Alcoholic cirrhosis of liver (Chronic) Medical History Diabetes mellitus Polysubstance abuse Anemia Encephalopathy, hepatic TIA (transient ischemic attack) Diabetic peripheral neuropathy Hepatitis C Cirrhosis of liver Hyperlipidemia Arthritis Bilateral leg edema Ulnar neuropathy Chronic pain Alcohol dependence Surgical History Hx of total knee arthroplasty H/O cervical spine surgery Social History Smoking/Tobacco Use Status: Current every day Tobacco Type: cigarettes and e-cigarettes Smoking risk assessment performed?: Yes Alcohol Intake: current Alcohol Intake frequency: 3 or more drinks per day Alcohol type: beer, wine and hard liquor Drug use: Occasionally Substance use type: marijuana Details: whiskey daily Housing: homeless Number of Children: 3 What type of physical activity do you participate in: walking Do you feel safe at home: Yes Do you feel safe in your relationship?: Yes Exam Const General: cooperative Nutritional Appearance: average body habitus Orientation: alert, awake and oriented x3 HENMT Head: normal to inspection Ears: external ears normal Mouth: moist mucous membranes Eyes Pupils: PERRL EOM: EOM intact bilaterally and No nystagmus Neck Neck: full ROM and no tracheal deviation Chest Chest: normal inspection of the chest Resp Auscultation: clear to auscultation bilaterally Cardio Rate: regular rate Rhythm: regular rhythm GI Inspection: normal to inspection Palpation: soft, no guarding, not rigid and nontender Back/Spine/Pelvis Back: No no CVA tenderness Thoracic/Lumbar Spine: thoracic and lumbar spine normal to inspection Skin General skin exam: no rashes or lesions noted Neuro General: patient alert, patient awake and patient oriented x3 Cranial Nerves: CN's II-XI intact bilaterally, PERRL and no nystagmus Cognition: normal cognition Motor: muscle tone normal throughout and strength 5/5 throughout Sensory Exam: no sensory deficits noted Extrem General: normal to inspection Course Vital Signs Vital signs: Vital Signs Temperature 37.2 C 03/01/23 16:00 Pulse 97 H 03/01/23 16:00 Respiratory Rate 18 03/01/23 16:00 Blood Pressure 111/87 03/01/23 16:00 Pulse Oximetry 94 03/01/23 16:00 Temperature 37.2 C 03/01/23 16:00 Temperature Source Skin 03/01/23 16:00 Pulse 97 H 03/01/23 16:00 Respiratory Rate 18 03/01/23 16:00 Respiratory Effort Normal, Non-Labored 03/01/23 16:04 Blood Pressure 111/87 03/01/23 16:00 Blood Pressure Position Sitting 03/01/23 16:00 Pulse Oximetry 94 03/01/23 16:00 Oxygen Delivery Method Room Air 03/01/23 16:00 Oxygen Flow Rate 0 03/01/23 16:00 Pain Level 10 03/01/23 16:00
[2023-03-01] MEDS: Ibuprofen 600 MG TAB PO (16:49)
[2023-03-01] MEDS: Acetaminophen 500 MG TAB 1000 MG PO (16:49)
== END 2023-03-01 16:50 | disposition home or self-care (01) ==
PROVIDERS: Emergency Provider Student in an Organized Health Care Education/Training Program; PCP Family Medicine
DX: M54.50 Low back pain, unspecified (principal); Z59.00 Homelessness unspecified
CPT/HCPCS: 99283